=== PATIENT | male | born 1945 | race Caucasian/White ===

== ENCOUNTER → 2017-03-16 | Outpatient (CLI) | payer MEDICARE ==
[2017-03-16 11:22] LABS: ALT 24 U/L (21-72); AST 22 U/L (17-59); Alkaline Phosphatase 73 U/L (38-126); Anion Gap 12 mmol/L; Blood Urea Nitrogen 18 mg/dL (9-20); Calcium 9.6 mg/dL (8.4-10.2); Carbon Dioxide 24 mmol/L (22-30); Chloride 101 mmol/L (98-107); Glucose 93 mg/dL (74-99); Non-African American GFR(MDRD) >60 (>60 ml/min/1.73 sqM); Potassium 4.9 mmol/L (3.5-5.1); Sodium 137 mmol/L (137-145); Total Bilirubin 0.6 mg/dL (0.2-1.3); Total Protein 7.8 g/dL (6.3-8.2)
== END | disposition home or self-care (01) ==
LOC: LABWHC1 10:47
PROVIDERS: ATTEND Physical Medicine & Rehabilitation
DX: M51.17 Intervertebral disc disorders with radiculopathy, lumbosacral region (principal); M47.817 Spondylosis without myelopathy or radiculopathy, lumbosacral region
CPT/HCPCS: 36415; 80053

== ENCOUNTER → 2017-04-06 | Outpatient (CLI) | payer MEDICARE ==
[2017-04-06 12:06] LABS: Appearance,Urine Clear (Clear); Bilirubin,Urine Negative (Negative); Glucose,Urine (UA) Negative (Negative); Ketones,Urine Negative (Negative); Leukocyte Esterase,Urine Negative (Negative); Nitrite,Urine Negative (Negative); Protein,Urine Negative (Negative); Specific Gravity,Urine 1.006 (1.001-1.035); UA Billing (MACRO vs. MICRO) CHEM; Urobilinogen,Urine <2.0 mg/dL (<2.0)
[2017-04-06 12:07] LABS: INR 1.1 (<1.1); Partial Thromboplastin Time 26.8 sec (22.0-30.0); Prothrombin Time 11.1 sec (9.0-12.0)
[2017-04-06 12:10] LABS: Anion Gap 11 mmol/L; Blood Urea Nitrogen 14 mg/dL (9-20); Calcium 9.7 mg/dL (8.4-10.2); Carbon Dioxide 24 mmol/L (22-30); Chloride 98 mmol/L (98-107); Glucose 100 mg/dL (74-99); Non-African American GFR(MDRD) >60 (>60 ml/min/1.73 sqM); Potassium 4.7 mmol/L (3.5-5.1); Sodium 133 mmol/L (137-145)
--- NOTE | 2017-04-06 12:19 | XR ---
EXAMINATION TYPE: XR chest 2V DATE OF EXAM: 04/06/2017 12:08 PM COMPARISON: NONE HISTORY: Shortness of breath TECHNIQUE: Frontal and lateral views of the chest are obtained. FINDINGS: Scattered senescent parenchymal changes noted. Hyperinflation compatible with COPD. No evidence for infiltrate. No evidence for atelectasis. Heart size is stable. Mediastinal structures are stable and grossly unremarkable. No evidence for hilar prominence. Degenerative changes dorsal spine. Sclerosis or ossification adjacent to the left coracoid. IMPRESSION: 1. No evidence for acute pulmonary disease.
[2017-04-06 12:24] LABS: Basophils # (A) 0.1 k/uL (0-0.2); Basophils % (A) 1 %; CH 31.3; CHCM 33.7; Eosinophils % (A) 12 %; HCT 51.7 % (39.0-53.0); HDW 2.67; HGB 17.4 gm/dL (13.0-17.5); Large Platelets Flag Slight; Luc # (Auto) 0.16; Luc % (Auto) 2; Lymphocytes # (A) 1.8 k/uL (1.0-4.8); Lymphocytes % (A) 20 %; MCH 31.3 pg (25.0-35.0); MCHC 33.6 g/dL (31.0-37.0); MCV 93.2 fL (80.0-100.0); Mean Platelet Volume 10.4; Monocytes % (A) 11 %; Neutrophils # (A) 4.8 k/uL (1.3-7.7); Neutrophils % (A) 54 %; RBC 5.54 m/uL (4.30-5.90); RDW 14.9 % (11.5-15.5); WBC 8.8 k/uL (3.8-10.6); WBC (Perox) 8.64
[2017-04-06 13:31] LABS: Manual Review Performed
== END | disposition home or self-care (01) ==
LOC: LABPAT 11:24
PROVIDERS: ATTEND Orthopaedic Surgery Orthopaedic Surgery of the Spine
DX: Z01.818 Encounter for other preprocedural examination (principal); Z01.812 Encounter for preprocedural laboratory examination; Z79.01 Long term (current) use of anticoagulants
CPT/HCPCS: 36415; 71020; 80048; 81003; 85025; 85610; 85730; 86850; 86900; 86901; 87070

== ENCOUNTER → 2017-04-12 | Outpatient (CLI) | payer MEDICARE ==
[2017-04-12 11:16] LABS: Large Platelets Flag Marked
== END | disposition home or self-care (01) ==
LOC: LABPAT 10:41
PROVIDERS: ATTEND Orthopaedic Surgery Orthopaedic Surgery of the Spine
DX: Z01.812 Encounter for preprocedural laboratory examination (principal)
CPT/HCPCS: 85049

== ENCOUNTER 2017-04-14 05:42 | Day surgery (SDC) | payer MEDICARE ==
[2017-04-09 09:10] VITALS: BMI 34.9
[~2017-04-14 05:42] MED LIST: BACITRACIN 50,000 UNIT, POLYMYXIN B 500,000 UNIT in SODIUM CHLORIDE 0.9% IRRIGATIO 1,00... IRRIGATION ONE; ceFAZolin 2 GM in SODIUM CHLORIDE 0.9% 100 ML IVPB ONE
[2017-04-14] MEDS ORDERED: MIDAZOLAM 2 MG/2 ML VIAL IV PRN (05:57)
[2017-04-14] MEDS ORDERED: ONDANSETRON 4 MG/2 ML VIAL IVP ONE (05:57)
[2017-04-14] MEDS ORDERED: HYDROmorphone 1 MG/ML 1 ML SYRINGE IVP PRN ×3 (05:57→09:07)
[2017-04-14] MEDS ORDERED: LACTATED RINGERS 1,000 ML IV SCH (05:57)
[2017-04-14] MEDS ORDERED: DEXAMETHASONE SOD PHOSPHATE 10 MG/ML 1 ML VIAL IV ONE (05:57)
[2017-04-14] MEDS ORDERED: LIDOCAINE 1% 20 ML VIAL (10MG/ML) FOR IV START INTRADERMA ONE (06:34)
[2017-04-14] MEDS ORDERED: MIDAZOLAM 2 MG/2 ML VIAL ONE (07:27)
[2017-04-14] MEDS ORDERED: LIDOCAINE 1% INJ 10MG/ML (20 ML MDV) ONE (07:27)
[2017-04-14] MEDS ORDERED: ePHEDrine 50 MG/ML 1 ML AMP ONE (07:27)
[2017-04-14] MEDS ORDERED: PROPOFOL 10 MG/ML 20 ML VIAL IV ONE (07:27)
[2017-04-14] MEDS ORDERED: SUCCINYLCHOLINE CHLORIDE 100 MG/5 ML SYR IV ONE (07:27)
[2017-04-14] MEDS ORDERED: fentaNYL (PF) 50 MCG/ML 2 ML AMP ONE (07:27)
[2017-04-14] MEDS ORDERED: PHENYLEPHRINE-0.9% NACL SYG 1 MG/10 ML SYRINGE ONE (07:27)
[2017-04-14] MEDS ORDERED: LIDOCAINE 0.5%-EPI 1:200,000 50 ML VIAL SQ ONE ×2 (07:58→08:02)
[2017-04-14] MEDS ORDERED: BUPIVACAINE (PF) 0.25% 30 ML VIAL SQ ONE (07:58)
[2017-04-14] MEDS ORDERED: GELATIN SPONGE,ABSORB (LARGE) 1 EACH SPONGE TOPICAL ONE (07:58)
[2017-04-14] MEDS ORDERED: methylPREDNISolone ACETATE 80 MG/ML 1 ML VIAL INJ ONE ×2 (07:59)
--- NOTE | 2017-04-14 08:37 | FL ---
FLUOROSCOPY 5 seconds of fluoroscopy time were utilized during lumbar laminectomy. 1 images document the procedur e.
[2017-04-14] MEDS ORDERED: LACTATED RINGERS 1,000 ML IV ONE (08:54)
[2017-04-14] MEDS ORDERED: BENZOCAINE/MENTHOL LOZENG 1 EACH LOZENGE MUCOUS MEM PRN (09:07)
[2017-04-14] MEDS ORDERED: IBUPROFEN 600 MG TAB PO PRN (09:07)
[2017-04-14] MEDS ORDERED: DIAZEPAM 5 MG TAB PO PRN (09:07)
[2017-04-14] MEDS ORDERED: ONDANSETRON 4 MG/2 ML VIAL IVP PRN (09:07)
[2017-04-14] MEDS ORDERED: KETOROLAC 30 MG/ML 1 ML VIAL IVP PRN (09:07)
[2017-04-14] MEDS ORDERED: HYDROcodone/APAP 5-325MG 1 EACH TAB PO PRN ×2 (09:07)
[2017-04-14] MEDS ORDERED: NICOTINE 21MG/24HR PATCH TRANSDERM PRN (09:09)
[2017-04-14] MEDS ORDERED: ACETAMINOPHEN TAB 500 MG TAB PO PRN (09:09)
[2017-04-14] MEDS ORDERED: HYDROcodone/APAP 10-325MG 1 EACH TAB PO PRN (09:09)
[2017-04-14] MEDS ORDERED: SODIUM CHLORIDE 0.9% 1,000 ML IV SCH (09:15)
--- NOTE | 2017-04-14 09:16 | P.OP ---
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 Brito Electro Mechanic: Phil MORENO Anesthesia: General anesthesia Estimated blood loss: Approximately 50 mL Complications: None apparent Components implanted: None Specimen: Proximal of laminectomy with epidural mass likely facet cyst sent to pathology Disposition: To recovery room in good stable condition. OPERATIVE INDICATIONS The patient has been having issues in their lower back and lower extremities. The patient was found to have evidence of a epidural mass which was likely facet cyst at L4 5 with evidence of disc degeneration possible disc herniation. The symptoms correlated well with his imaging findings with his back and right lower extremity pain and radiculopathy. The patient has been through conservative treatment. He is not having any prolonged benefit despite aggressive conservative treatment and was having worsening of his symptoms. We discussed various treatment options including surgery, and the patient wishes to proceed with surgery We discussed the risk, patient's alternatives and benefits of surgery including but not limited to, risk of bleeding risk of infection, risk of need for further surgery, risk of decreased, loss of motion, loss of function, nerve damage, paralysis, heart attack, blindness and . OPERATIVE SUMMARY After discussing all the risks, patient alternatives and benefits at length, the patient elected to proceed with surgical intervention, signed informed consent, and presented for their procedure. The patient was seen and examined in the preoperative holding area and the surgical site was marked. The patient was given antibiotics and brought to the operating room. The patient was sedated and intubated by anesthesia in standard fashion. The patient was positioned on to the operating room table in a prone position on the appropriate frame which was well-padded and well molded. We were careful to pad any bony prominences and pressure points. We were careful to maintain the patient's cervical spine and good neutral alignment and position throughout. The patient was prepped and draped in a normal standard fashion. An appropriate timeout and keystone protocol performed. We were able to proceed with the surgery. Fluoroscopy was utilized to establish the appropriate level at L4 5. The local wound area was infiltrated with local anesthetic. An incision was made at the midline longitudinally over the appropriate levels at L4 5. Dissection was taken down subcutaneously to the level of the fascia which was split midline. Dissection was taken over the lamina. Intraoperative fluoroscopy was taken which showed a marker at the appropriate level at L4 5. With the appropriate level positively confirmed, we were able to proceed with laminectomy. The wound was copiously irrigated and suctioned dry as had been done periodically throughout the case. I performed a laminectomy with a combination of curettes and a high-speed bur and Kerrison rongeurs. A small medial facetectomy was performed again further access. A partial foraminotomy was also performed. There was a fibrous capsular type of mass at the epidural space extending from the facet which was believed to be a facet cyst. Portions of the capsule were adherent to the dura and traversing nerve root. This was causing significant compression at the dura and And traversing nerve root. I was able to remove the mass and remove multiple portions from the dura itself to get good decompression at the area. The tissue removed was sent for pathology. There was also evidence of extruded material which appeared to be disc at L4 5. I was able to remove these portions of disc for further decompression. I was able to expose the traversing nerve root and the dura quite well with the decompression and removal of these tissues. The nerve was freely mobile. I was able to mobilize the traversing nerve root and gain access to the disc space. Note was made of obvious compression from the disc. Protecting the soft tissue structures, I was able to perform discectomy and remove any extruded disc fragments and any loose fragments from within the disc itself. There is some disc desiccation noted. There were no further extruded fragments noted. There is no evidence of dural tear or leak. Good hemostasis maintained. The wound was copiously irrigated and suctioned dry. Good decompression and discectomy was noted. We were able to proceed with closure. The fascia was closed for a watertight closure. The subcuticular tissue was closed with absorbable suture. The wound was cleaned and dried and dressed with the appropriate dressing. The drapes were broken down. The patient was gently rolled back onto their hospital bed being careful to maintain their cervical spine and good neutral alignment and position. They were woken up by anesthesia, extubated, and brought to the recovery room in good stable condition. The patient will be admitted to the hospital for observation and for appropriate postoperative care, medical management and monitoring. We will continue to follow them closely about the postoperative course.
[2017-04-14 13:48] VITALS: RESP 16; TEMP 97.2
[2017-04-14 13:51] VITALS: BP 107/58; PULSE 80
[2017-04-14] MEDS ORDERED: ceFAZolin 2 GM in SODIUM CHLORIDE 0.9% 100 ML IVPB SCH (15:00)
[2017-04-14] MEDS ORDERED: GABAPENTIN 400 MG CAP PO SCH (16:00)
[2017-04-15] MEDS ORDERED: HYDROCHLOROTHIAZIDE 12.5 MG CAP PO SCH (09:00)
[2017-04-15] MEDS ORDERED: LISINOPRIL 20 MG TAB PO SCH (09:00)
[2017-04-15] MEDS ORDERED: FINASTERIDE 5 MG TAB PO SCH (09:00)
[2017-04-15] MEDS ORDERED: METOPROLOL SUCCINATE (ER) 100 MG TAB.ER.24H PO SCH (09:00)
[2017-04-15] MEDS ORDERED: MAGNESIUM OXIDE 400 MG TAB PO SCH (09:00)
[2017-04-15] MEDS ORDERED: amLODIPine 5 MG TAB PO SCH (09:00)
[2017-04-15] MEDS ORDERED: VIT A,C & E-LUTEIN-MINERALS 1 EACH TAB PO SCH (12:00)
[2017-04-15] MEDS ORDERED: CYANOCOBALAMIN 500 MCG TAB PO SCH (12:00)
== END 2017-04-14 17:57 | disposition home or self-care (01) ==
LOC: OR 05:42 → 3SUR 09:19 → OR 17:57
PROVIDERS: ATTEND Orthopaedic Surgery Orthopaedic Surgery of the Spine
DX: M48.06 Spinal stenosis, lumbar region (principal); M48.8X6 Other specified spondylopathies, lumbar region; M51.16 Intervertebral disc disorders with radiculopathy, lumbar region; M47.26 Other spondylosis with radiculopathy, lumbar region; I10 Essential (primary) hypertension; F17.200 Nicotine dependence, unspecified, uncomplicated; E78.5 Hyperlipidemia, unspecified; H35.30 Unspecified macular degeneration; I73.9 Peripheral vascular disease, unspecified; Z79.82 Long term (current) use of aspirin; Z79.891 Long term (current) use of opiate analgesic; Z79.899 Other long term (current) drug therapy
CPT/HCPCS: 72020; 63047; J1040; J1100; J0690; J2405; J1170; 86850; 86900; 86901; 88304; 88311

== ENCOUNTER 2017-07-04 10:25 | Emergency (ER) | payer MEDICARE ==
--- NOTE | 2017-07-04 10:42 | ED ---
Dizziness HPI - General Chief Complaint: Dizziness Stated Complaint: dizzy Time Seen by Provider: 07/04/17 10:30 Source: patient, family, RN notes reviewed Mode of arrival: wheelchair Limitations: no limitations - History of Present Illness Initial Comments: This is a 72-year-old male who states she's feeling episodes of lightheadedness and dizziness. He states she's been waking up feeling cold last 2 days. He was noted have a temperature 100.4 upon arrival here today. He states he urinates frequently denies any cough or phlegm production. He is very hard of hearing. MD Complaint: dizziness, lightheadedness, other - Related Data Home Medications Medication Instructions Recorded Confirmed Cyanocobalamin (Vitamin B-12) 1,000 mcg PO DAILY 04/09/17 07/04/17 [Vitamin B-12] Finasteride [Proscar] 5 mg PO DAILY 04/09/17 07/04/17 Gabapentin [Neurontin] 400 mg PO TID 04/09/17 07/04/17 HYDROcodone/APAP 10-325MG [[place] 1 tab PO TID PRN 04/09/17 07/04/17 10-325] Hydrochlorothiazide [Hydrodiuril] 12.5 mg PO DAILY 04/09/17 07/04/17 Lisinopril 40 mg PO DAILY 04/09/17 07/04/17 Magnesium Oxide [Magox 400] 400 mg PO DAILY 04/09/17 07/04/17 Metoprolol Succinate [Toprol XL] 100 mg PO DAILY 04/09/17 07/04/17 Vit C/E/Zn/Coppr/Lutein/Zeaxan 1 cap PO DAILY 04/09/17 07/04/17 [Preservision Areds 2 Softgel] amLODIPine [Norvasc] 5 mg PO DAILY 04/09/17 07/04/17 Acetaminophen/Diphenhydramine 1 tab PO HS PRN 07/04/17 07/04/17 [Tylenol PM 500-25mg] DULoxetine HCL 40 mg PO DAILY 07/04/17 07/04/17 Docusate [Colace] 100 mg PO BID 07/04/17 07/04/17 [place]-3 Fatty Acids/Fish Oil [Fish 1 cap PO DAILY 07/04/17 07/04/17 Oil 1,000 mg Softgel] [place] 160 mg PO BID 07/04/17 07/04/17 Previous Rx's Medication Instructions Recorded Meclizine [Antivert] 25 mg PO TID #20 tab 07/04/17 Allergies Allergy/AdvReac Type Severity Reaction Status Date / Time No Known Allergies Allergy Verified 07/04/17 11:11 Review of Systems ROS Statement: Those systems with pertinent positive or pertinent negative responses have been documented in the HPI. ROS Other: All systems not noted in ROS Statement are negative. Past Medical History Past Medical History: Hypertension History of Any Multi-Drug Resistant Organisms: None Reported Past Surgical History: Back Surgery Past Psychological History: No Psychological Hx Reported Smoking Status: Current every day smoker Past Alcohol Use History: None Reported Past Drug Use History: None Reported General Exam - General Exam Comments Initial Comments: This is a well-developed well-nourished awake alert oriented 3 male Limitations: no limitations General appearance: alert, in no apparent distress Head exam: Present: atraumatic, normocephalic, normal inspection Eye exam: Present: normal appearance, PERRL, EOMI. Absent: scleral icterus, conjunctival injection, periorbital swelling ENT exam: Present: mucous membranes dry Neck exam: Present: normal inspection. Absent: tenderness, meningismus, lymphadenopathy Respiratory exam: Present: normal lung sounds bilaterally. Absent: respiratory distress, wheezes, rales, rhonchi, stridor Cardiovascular Exam: Present: regular rate, normal rhythm, normal heart sounds. Absent: systolic murmur, diastolic murmur, rubs, gallop, clicks GI/Abdominal exam: Present: soft, normal bowel sounds. Absent: distended, tenderness, guarding, rebound, rigid Extremities exam: Present: normal inspection, full ROM, normal capillary refill. Absent: tenderness, pedal edema, joint swelling, calf tenderness Back exam: Present: normal inspection Neurological exam: Present: alert, oriented X3, other (Critical nerves intact except for hard of hearing.) Psychiatric exam: Present: normal affect, normal mood Skin exam: Present: warm, dry, intact, normal color. Absent: rash Course Vital Signs 07/04/17 07/04/17 07/04/17 10:27 11:13 11:43 Temperature 100.4 F H Pulse Rate 90 84 80 Respiratory 20 16 18 Rate Blood Pressure 119/74 120/69 109/76 O2 Sat by Pulse 94 L 94 L 95 Oximetry EKG Findings - EKG Results: EKG: interpreted by ERMD, sinus rhythm (Sinus rhythm rate of 81. Interval 150 to QRS duration 106 daily since QTC of 42/466 possible left atrial enlargement nonspecific inferior changes.) Medical Decision Making - Medical Decision Making Patient is feeling well did discuss findings with him and his friend. The current presentation is consistent with a viral syndrome. He will be discharged he is instructed to increase his oral fluids - Lab Data Result diagrams: 07/04/17 10:50 07/04/17 10:50 Lab Results 07/04/17 07/04/17 07/04/17 Range/Units 10:50 10:50 10:50 WBC 10.2 (3.8-10.6) k/uL RBC 5.35 (4.30-5.90) m/uL Hgb 17.1 (13.0-17.5) gm/dL Hct 50.3 (39.0-53.0) % MCV 94.1 (80.0-100.0) fL MCH 32.0 (25.0-35.0) pg MCHC 34.0 (31.0-37.0) g/dL RDW 14.2 (11.5-15.5) % Plt Count (150-450) k/uL Neutrophils % 60 % Lymphocytes % 18 % Monocytes % 12 % Eosinophils % 6 % Basophils % 1 % Neutrophils # 6.1 (1.3-7.7) k/uL Lymphocytes # 1.9 (1.0-4.8) k/uL Monocytes # 1.2 H (0-1.0) k/uL Eosinophils # 0.6 (0-0.7) k/uL Basophils # 0.1 (0-0.2) k/uL Polychromasia Present Sodium 136 L (137-145) mmol/L Potassium 4.1 (3.5-5.1) mmol/L Chloride 94 L (98-107) mmol/L Carbon Dioxide 28 (22-30) mmol/L Anion Gap 14 mmol/L BUN 9 (9-20) mg/dL Creatinine 0.81 (0.66-1.25) mg/dL Est GFR (MDRD) Af Amer >60 (>60 ml/min/1.73 sqM) Est GFR (MDRD) Non-Af >60 (>60 ml/min/1.73 sqM) Glucose 115 H (74-99) mg/dL Calcium 9.6 (8.4-10.2) mg/dL Magnesium 1.7 (1.6-2.3) mg/dL Total Bilirubin 0.5 (0.2-1.3) mg/dL AST 24 (17-59) U/L ALT 33 (21-72) U/L Alkaline Phosphatase 78 (38-126) U/L Total Creatine Kinase (55-170) U/L CK-MB (CK-2) (0.0-2.4) ng/mL CK-MB (CK-2) Rel Index Troponin I (0.000-0.034) ng/mL Total Protein 7.2 (6.3-8.2) g/dL Albumin 4.3 (3.5-5.0) g/dL Urine Color Light Yellow Urine Appearance Clear (Clear) Urine pH 8.5 H (5.0-8.0) Ur Specific [place] 1.004 (1.001-1.035) Urine Protein Negative (Negative) Urine Glucose (UA) Negative (Negative) Urine Ketones Negative (Negative) Urine Blood Negative (Negative) Urine Nitrite Negative (Negative) Urine Bilirubin Negative (Negative) Urine Urobilinogen <2.0 (<2.0) mg/dL Ur Leukocyte Esterase Negative (Negative) 07/04/17 07/04/17 Range/Units 10:50 10:50 WBC (3.8-10.6) k/uL RBC (4.30-5.90) m/uL Hgb (13.0-17.5) gm/dL Hct (39.0-53.0) % MCV (80.0-100.0) fL MCH (25.0-35.0) pg MCHC (31.0-37.0) g/dL RDW (11.5-15.5) % Plt Count (150-450) k/uL Neutrophils % % Lymphocytes % % Monocytes % % Eosinophils % % Basophils % % Neutrophils # (1.3-7.7) k/uL Lymphocytes # (1.0-4.8) k/uL Monocytes # (0-1.0) k/uL Eosinophils # (0-0.7) k/uL Basophils # (0-0.2) k/uL Polychromasia Sodium (137-145) mmol/L Potassium (3.5-5.1) mmol/L Chloride (98-107) mmol/L Carbon Dioxide (22-30) mmol/L Anion Gap mmol/L BUN (9-20) mg/dL Creatinine (0.66-1.25) mg/dL Est GFR (MDRD) Af Amer (>60 ml/min/1.73 sqM) Est GFR (MDRD) Non-Af (>60 ml/min/1.73 sqM) Glucose (74-99) mg/dL Calcium (8.4-10.2) mg/dL Magnesium (1.6-2.3) mg/dL Total Bilirubin (0.2-1.3) mg/dL AST (17-59) U/L ALT (21-72) U/L Alkaline Phosphatase (38-126) U/L Total Creatine Kinase 98 (55-170) U/L CK-MB (CK-2) 3.1 H* (0.0-2.4) ng/mL CK-MB (CK-2) Rel Index 3.2 Troponin I <0.012 (0.000-0.034) ng/mL Total Protein (6.3-8.2) g/dL Albumin (3.5-5.0) g/dL Urine Color Urine Appearance (Clear) Urine pH (5.0-8.0) Ur Specific [place] (1.001-1.035) Urine Protein (Negative) Urine Glucose (UA) (Negative) Urine Ketones (Negative) Urine Blood (Negative) Urine Nitrite (Negative) Urine Bilirubin (Negative) Urine Urobilinogen (<2.0) mg/dL Ur Leukocyte Esterase (Negative) - Radiology Data Radiology results: report reviewed (Review the imaging shows no acute findings.) , image reviewed Disposition Clinical Impression: Viral syndrome, Febrile illness Disposition: HOME SELF-CARE Condition: Good Instructions: Viral Syndrome (ED) Prescriptions: Meclizine [Antivert] 25 mg PO TID #20 tab Referrals: Alexei Metz MD [Primary Care Provider] - 1-2 days
[2017-07-04 11:05] LABS: Basophils # (A) 0.1 k/uL (0-0.2); Basophils % (A) 1 %; CH 31.5; CHCM 33.6; Eosinophils # (A) 0.6 k/uL (0-0.7); Eosinophils % (A) 6 %; HCT 50.3 % (39.0-53.0); HGB 17.1 gm/dL (13.0-17.5); Large Platelets Flag Marked; Luc # (Auto) 0.39; Luc % (Auto) 4; Lymphocytes # (A) 1.9 k/uL (1.0-4.8); Lymphocytes % (A) 18 %; MCV 94.1 fL (80.0-100.0); Mean Platelet Volume 14.8; Monocytes # (A) 1.2 k/uL (0-1.0); Monocytes % (A) 12 %; Neutrophils # (A) 6.1 k/uL (1.3-7.7); Neutrophils % (A) 60 %; RBC 5.35 m/uL (4.30-5.90); RDW 14.2 % (11.5-15.5); WBC 10.2 k/uL (3.8-10.6); WBC (Perox) 12.76
[2017-07-04 11:17] LABS: ALT 33 U/L (21-72); AST 24 U/L (17-59); Alkaline Phosphatase 78 U/L (38-126); Anion Gap 14 mmol/L; Blood Urea Nitrogen 9 mg/dL (9-20); Calcium 9.6 mg/dL (8.4-10.2); Carbon Dioxide 28 mmol/L (22-30); Chloride 94 mmol/L (98-107); Glucose 115 mg/dL (74-99); Magnesium 1.7 mg/dL (1.6-2.3); Non-African American GFR(MDRD) >60 (>60 ml/min/1.73 sqM); Potassium 4.1 mmol/L (3.5-5.1); Sodium 136 mmol/L (137-145); Total Bilirubin 0.5 mg/dL (0.2-1.3); Total Protein 7.2 g/dL (6.3-8.2)
[2017-07-04 11:18] LABS: Polychromasia Present
[2017-07-04 11:28] LABS: Appearance,Urine Clear (Clear); Bilirubin,Urine Negative (Negative); Glucose,Urine (UA) Negative (Negative); Ketones,Urine Negative (Negative); Leukocyte Esterase,Urine Negative (Negative); Nitrite,Urine Negative (Negative); PH, Urine 8.5 (5.0-8.0); Protein,Urine Negative (Negative); Specific Gravity,Urine 1.004 (1.001-1.035); UA Billing (MACRO vs. MICRO) CHEM; Urobilinogen,Urine <2.0 mg/dL (<2.0)
--- NOTE | 2017-07-04 11:44 | XR ---
EXAMINATION TYPE: XR chest 2V DATE OF EXAM: 07/04/2017 COMPARISON: 04/06/2017 HISTORY: 72-year-old male, lightheaded TECHNIQUE: AP and lateral views FINDINGS: The heart is upper limits of normal in size. Large appearance to the central pulmonary arteries. Mild diffuse interstitial prominence of the chronic appearance. There is hyperinflation with flattening o f the hemidiaphragms. Strandy atelectasis at the right base. No consolidation or pleural effusion. IMPRESSION: COPD with chronic appearing changes. Suspect underlying pulmonary arterial hypertension. No acute pro cess seen.
[2017-07-04 11:54] LABS: Creatine Kinase MB 3.1 ng/mL (0.0-2.4)
[2017-07-04 12:09] VITALS: RESP 18
--- NOTE | 2017-07-04 12:31 | CT ---
EXAMINATION TYPE: CT brain wo con DATE OF EXAM: 07/04/2017 COMPARISON: NONE HISTORY: Dizziness CT DLP: 1047.10 mGycm Automated exposure control for dose reduction was used. FINDINGS: There is no acute hemorrhage or major vessel territorial infarct. There is moderate cortical atrophy. There is no mass, mass effect, or midline shift. There is a hypodense area in the right parietal lob e which could be related to previous infarct. Syndrome at [place]. There is minimal opacification left maxillary sinus. Mastoid air cells are well aerated. Calvarium is unremarkable. IMPRESSION: NO PRIOR STUDIES ARE AVAILABLE FOR COMPARISON. THERE IS HYPODENSE AREA IN THE RIGHT PARIETAL LOBE WHI CH COULD BE RELATED TO PRIOR INSULT. CORRELATION WITH PATIENT HISTORY IS RECOMMENDED. THERE IS GLOBAL CORTICAL ATROPHY WHICH IS MORE PROGRESSED THAN WHAT WOULD BE EXPECTED FOR THE PATIENT 'S AGE.
[2017-07-04 13:00] VITALS: BP 101/55; PULSE 74; TEMP 98.2
== END 2017-07-04 12:59 | disposition home or self-care (01) ==
LOC: EC 10:25
DX: B34.9 Viral infection, unspecified (principal); R50.9 Fever, unspecified; I10 Essential (primary) hypertension; F17.200 Nicotine dependence, unspecified, uncomplicated; Z79.899 Other long term (current) drug therapy
CPT/HCPCS: 36415; 70450; 71020; 80053; 81003; 82550; 82553; 83735; 84484; 85025; 93005; 99284

== ENCOUNTER → 2017-08-25 | Outpatient (CLI) | payer MEDICARE ==
[2017-08-25 15:43] LABS: Blood Urea Nitrogen 14 mg/dL (9-20); Non-African American GFR(MDRD) >60 (>60 ml/min/1.73 sqM)
--- NOTE | 2017-08-26 15:59 | CT ---
EXAMINATION TYPE: CT angio neck DATE OF EXAM: 08/26/2017 HISTORY: Patient poor historian. Poor bloodflow. Patient has history of prior bilateral carotid end art ectomy. COMPARISON: NONE CT DLP: 971.4 mGycm. Automated Exposure Control for Dose Reduction was Utilized. TECHNIQUE: CTA scan of the neck is performed with IV Contrast, patient injected with 60 mL of Omnipa que 350, axial images are obtained, coronal and sagittal reformatted images are reviewed. Three-D rec onstructed images are created on an independent workstation and reviewed. FINDINGS: Carotid/Vascular Structures: There is high-grade stenosis of at least 70-80% ostial stenosis of the b rachiocephalic artery secondary to noncalcified plaquing spanning a distance of 4.5 cm. This is best demonstrated on series 9 (coronal images) image 34. At the distal aspect of the stenosis there is hig h-grade near complete occlusion (at least 90% secondary to both soft and hard plaque measuring 1.4 cm in length with only diminutive flow seen eccentric lead through the subclavian artery. High-grade st enosis extends along the right subclavian artery for at least 3.8 cm with asymmetric flow seen of the right axillary artery in comparison to the left. Although there is ostial narrowing at the origin of the vertebral artery the vertebral artery is patent on the right and dominant in comparison to the l eft. Basilar artery and its visualized portions is also patent. Circumferential intimal thickening and noncalcific plaquing is seen of the right common carotid arter y resulting in approximately 50% stenosis along its course. At the carotid bulb there are endarterect brenda changes with surgical clips and diminutive flow through the endarterectomy. Difficult to actually measure the grade of stenosis, however in comparison to the left common carotid artery this is appro ximately 80% stenosis. There is complete occlusion of the vertical and petrous portions of the right carotid artery as well as of the cavernous portions and supraclinoid portions with reconstitution in the right distal supraclinoid portion and M1 portion. Although the examination is not optimized for evaluation of intracranial structures incidental note i s made of a cavum septum pellucidum. Within the intracranial visualized vasculature there is no evide nce of focal stenosis. Within the visualized lungs there are paraseptal bullous emphysematous changes with the largest bulla measuring 8.5 cm. Multilevel degenerative changes of the thoracic spine are also noted. No compressi on deformity. Findings were discussed with the ordering physician Dr. Lynch at 1553 on 08/26/2017. IMPRESSION: 1. 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 2. High-grade stenosis of at least 70-80% at the ostia of the brachiocephalic artery secondary to non calcified atheromatous plaque spanning a distance of 4.5 cm. 3. High-grade stenosis and near complete occlusion secondary to both calcific and noncalcific atherom atous change within the brachiocephalic artery just distal to the above-mentioned 78% stenosis spanni ng a distance of 1.4 cm extending into the subclavian artery. Asymmetric flow is seen within the righ t and left subclavian arteries. 4. Ostial narrowing of the vertebral artery, difficult to measure although there is patency distal to this. 5. Circumferential intimal thickening and noncalcified plaque along the right common carotid artery o f approximately 50% throughout the endarterectomy proximal to the area of total occlusion. 6. Paraseptal bullous emphysematous changes of the visualized lung apices.
== END | disposition home or self-care (01) ==
LOC: RADCTMAIN 15:12
PROVIDERS: ATTEND Psychiatry & Neurology Neurology
DX: I65.21 Occlusion and stenosis of right carotid artery (principal); I77.1 Stricture of artery; I70.203 Unspecified atherosclerosis of native arteries of extremities, bilateral legs; I74.2 Embolism and thrombosis of arteries of the upper extremities; I65.09 Occlusion and stenosis of unspecified vertebral artery; Z91.030 Bee allergy status
CPT/HCPCS: 36415; 70498; 82565; 84520

== ENCOUNTER 2017-08-26 16:44 | Emergency (ER) | payer MEDICARE ==
--- NOTE | 2017-08-26 17:05 | ED ---
General Adult HPI - General Chief complaint: Neuro Symptoms/Deficit Stated complaint: cannot see straight, sent by Time Seen by Provider: 08/26/17 16:59 Source: patient, family, RN notes reviewed, old records reviewed Mode of arrival: wheelchair Limitations: no limitations - History of Present Illness Initial comments: This is a 72-year-old male to the ER for evaluation of the. History patient presents for evaluation regarding abnormal outpatient lab tests. Patient's history of severe arterial disease, patient presents today as he had outpatient CTA of his neck which showed significant disease. Patient states he has been having recent dizziness but denies any specific neurological changes. At this time patient is asymptomatic - Related Data Home Medications Medication Instructions Recorded Confirmed Finasteride [Proscar] 5 mg PO DAILY 04/09/17 08/26/17 Hydrochlorothiazide [Hydrodiuril] 12.5 mg PO DAILY 04/09/17 08/26/17 Lisinopril 40 mg PO DAILY 04/09/17 08/26/17 Metoprolol Succinate [Toprol XL] 100 mg PO DAILY 04/09/17 08/26/17 Vit C/E/Zn/Coppr/Lutein/Zeaxan 1 cap PO BID 04/09/17 08/26/17 [Preservision Areds 2 Softgel] amLODIPine [Norvasc] 5 mg PO DAILY 04/09/17 08/26/17 DULoxetine HCL 40 mg PO DAILY 07/04/17 08/26/17 Saw [place] 160 mg PO BID 07/04/17 08/26/17 Gabapentin [Neurontin] 300 mg PO BID 08/26/17 08/26/17 Allergies Allergy/AdvReac Type Severity Reaction Status Date / Time venom-honey bee Allergy Anaphylaxis Verified 08/26/17 17:08 Review of Systems ROS Statement: Those systems with pertinent positive or pertinent negative responses have been documented in the HPI. ROS Other: All systems not noted in ROS Statement are negative. Past Medical History Past Medical History: CVA/TIA, Hypertension History of Any Multi-Drug Resistant Organisms: None Reported Past Surgical History: Back Surgery Additional Past Surgical History / Comment(s): carotid endardectomy Past Psychological History: No Psychological Hx Reported Smoking Status: Current every day smoker Past Alcohol Use History: None Reported Past Drug Use History: None Reported General Exam - General Exam Comments Initial Comments: NIH 0 Limitations: no limitations General appearance: alert, in no apparent distress Head exam: Present: atraumatic, normocephalic, normal inspection Eye exam: Present: normal appearance, PERRL, EOMI. Absent: scleral icterus, conjunctival injection, periorbital swelling ENT exam: Present: normal exam, mucous membranes moist Neck exam: Present: normal inspection. Absent: tenderness, meningismus, lymphadenopathy Respiratory exam: Present: normal lung sounds bilaterally. Absent: respiratory distress, wheezes, rales, rhonchi, stridor Cardiovascular Exam: Present: regular rate, normal rhythm, normal heart sounds. Absent: systolic murmur, diastolic murmur, rubs, gallop, clicks GI/Abdominal exam: Present: soft, normal bowel sounds. Absent: distended, tenderness, guarding, rebound, rigid Extremities exam: Present: normal inspection, full ROM, normal capillary refill. Absent: tenderness, pedal edema, joint swelling, calf tenderness Back exam: Present: normal inspection Neurological exam: Present: alert, oriented X3, CN II-XII intact Psychiatric exam: Present: normal affect, normal mood Skin exam: Present: warm, dry, intact, normal color. Absent: rash Course Vital Signs 08/26/17 08/26/17 08/26/17 16:57 18:00 19:39 Temperature 97.8 F Pulse Rate 94 87 78 Respiratory 20 16 16 Rate Blood Pressure 98/71 O2 Sat by Pulse 93 L 95 96 Oximetry 08/26/17 08/26/17 20:15 21:09 Temperature Pulse Rate 80 84 Respiratory 16 16 Rate Blood Pressure 94/66 104/64 O2 Sat by Pulse 98 97 Oximetry - Reevaluation(s) Reevaluation #1: 08/26/17 20:53 , Made to Nathan Dotsonwell patient primary vascular surgeon who has done surgery on this patient, unable to get a hold of, then when we were able to get a hold of him he did refuse to speak about patient Reevaluation #2: 08/26/17 20:54 Spoke with Stephanie Wilks who is refusing admission of patient Reevaluation #3: 08/26/17 20:[address] Lynch who states patient should be evaluated regarding cardiovascular disease, vascular surgery, Dr. Lynch order CTA Reevaluation #4: 08/26/17 21:26 ptient will transfer to [facility] [place][note 3] EKG Findings - EKG Comments: EKG Findings:: EKG shows normal sinus a rate of 80, PA 136, QRS 142, QTC 467 Medical Decision Making - Medical Decision Making 72 male to the ER for reevaluation. Patient presents today for evaluation regarding TIA type of symptoms. Patient currently asystematic neurologically, he does have a CTA of his brain showing significant arterial disease the blood flow to his brain. Patient is to be transferred regarding vascular surgery and neurologic evaluation - Lab Data Result diagrams: 08/26/17 17:30 08/26/17 17:30 Lab Results 08/26/17 08/26/17 08/26/17 Range/Units 17:30 17:30 17:30 WBC 9.3 (3.8-10.6) k/uL RBC 5.17 (4.30-5.90) m/uL Hgb 16.3 (13.0-17.5) gm/dL Hct 50.3 (39.0-53.0) % MCV 97.2 (80.0-100.0) fL MCH 31.5 (25.0-35.0) pg MCHC 32.4 (31.0-37.0) g/dL RDW 14.2 (11.5-15.5) % Plt Count (150-450) k/uL Neutrophils % 56 % Lymphocytes % 20 % Monocytes % 9 % Eosinophils % 11 % Basophils % 1 % Neutrophils # 5.2 (1.3-7.7) k/uL Lymphocytes # 1.9 (1.0-4.8) k/uL Monocytes # 0.8 (0-1.0) k/uL Eosinophils # 1.0 H (0-0.7) k/uL Basophils # 0.1 (0-0.2) k/uL PT (9.0-12.0) sec INR (<1.2) APTT (22.0-30.0) sec Sodium 133 L (137-145) mmol/L Potassium 4.4 (3.5-5.1) mmol/L Chloride 98 (98-107) mmol/L Carbon Dioxide 25 (22-30) mmol/L Anion Gap 10 mmol/L BUN 15 (9-20) mg/dL Creatinine 1.00 (0.66-1.25) mg/dL Est GFR (MDRD) Af Amer >60 (>60 ml/min/1.73 sqM) Est GFR (MDRD) Non-Af >60 (>60 ml/min/1.73 sqM) Glucose 101 H (74-99) mg/dL Calcium 9.4 (8.4-10.2) mg/dL Phosphorus 4.5 (2.5-4.5) mg/dL Magnesium 1.9 (1.6-2.3) mg/dL Total Bilirubin 0.3 (0.2-1.3) mg/dL AST 18 (17-59) U/L ALT 26 (21-72) U/L Alkaline Phosphatase 64 (38-126) U/L Total Creatine Kinase 51 L (55-170) U/L CK-MB (CK-2) 1.6 (0.0-2.4) ng/mL CK-MB (CK-2) Rel Index 3.1 Troponin I <0.012 (0.000-0.034) ng/mL Total Protein 6.5 (6.3-8.2) g/dL Albumin 3.8 (3.5-5.0) g/dL 08/26/17 Range/Units 17:30 WBC (3.8-10.6) k/uL RBC (4.30-5.90) m/uL Hgb (13.0-17.5) gm/dL Hct (39.0-53.0) % MCV (80.0-100.0) fL MCH (25.0-35.0) pg MCHC (31.0-37.0) g/dL RDW (11.5-15.5) % Plt Count (150-450) k/uL Neutrophils % % Lymphocytes % % Monocytes % % Eosinophils % % Basophils % % Neutrophils # (1.3-7.7) k/uL Lymphocytes # (1.0-4.8) k/uL Monocytes # (0-1.0) k/uL Eosinophils # (0-0.7) k/uL Basophils # (0-0.2) k/uL PT 11.2 (9.0-12.0) sec INR 1.1 (<1.2) APTT 24.2 (22.0-30.0) sec Sodium (137-145) mmol/L Potassium (3.5-5.1) mmol/L Chloride (98-107) mmol/L Carbon Dioxide (22-30) mmol/L Anion Gap mmol/L BUN (9-20) mg/dL Creatinine (0.66-1.25) mg/dL Est GFR (MDRD) Af Amer (>60 ml/min/1.73 sqM) Est GFR (MDRD) Non-Af (>60 ml/min/1.73 sqM) Glucose (74-99) mg/dL Calcium (8.4-10.2) mg/dL Phosphorus (2.5-4.5) mg/dL Magnesium (1.6-2.3) mg/dL Total Bilirubin (0.2-1.3) mg/dL AST (17-59) U/L ALT (21-72) U/L Alkaline Phosphatase (38-126) U/L Total Creatine Kinase (55-170) U/L CK-MB (CK-2) (0.0-2.4) ng/mL CK-MB (CK-2) Rel Index Troponin I (0.000-0.034) ng/mL Total Protein (6.3-8.2) g/dL Albumin (3.5-5.0) g/dL - Radiology Data Radiology results: report reviewed (CT brain does show significant arterial disease, 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 Specs Out of Hospital Transfer - Requested Specifics: Other Emergency Center ([facility]
[2017-08-26] MEDS ORDERED: SODIUM CHLORIDE 0.9% 1,000 ML IV STA (17:08)
[2017-08-26 17:45] LABS: INR 1.1 (<1.2); Partial Thromboplastin Time 24.2 sec (22.0-30.0); Prothrombin Time 11.2 sec (9.0-12.0)
[2017-08-26 17:47] LABS: ALT 26 U/L (21-72); AST 18 U/L (17-59); Alkaline Phosphatase 64 U/L (38-126); Anion Gap 10 mmol/L; Blood Urea Nitrogen 15 mg/dL (9-20); Calcium 9.4 mg/dL (8.4-10.2); Carbon Dioxide 25 mmol/L (22-30); Chloride 98 mmol/L (98-107); Glucose 101 mg/dL (74-99); Magnesium 1.9 mg/dL (1.6-2.3); Non-African American GFR(MDRD) >60 (>60 ml/min/1.73 sqM); Phosphorus 4.5 mg/dL (2.5-4.5); Potassium 4.4 mmol/L (3.5-5.1); Sodium 133 mmol/L (137-145); Total Bilirubin 0.3 mg/dL (0.2-1.3); Total Protein 6.5 g/dL (6.3-8.2)
[2017-08-26 17:57] LABS: Basophils # (A) 0.1 k/uL (0-0.2); Basophils % (A) 1 %; CH 31.6; CHCM 32.6; Eosinophils % (A) 11 %; HCT 50.3 % (39.0-53.0); HDW 2.25; HGB 16.3 gm/dL (13.0-17.5); Luc # (Auto) 0.23; Luc % (Auto) 3; Lymphocytes # (A) 1.9 k/uL (1.0-4.8); Lymphocytes % (A) 20 %; MCH 31.5 pg (25.0-35.0); MCHC 32.4 g/dL (31.0-37.0); MCV 97.2 fL (80.0-100.0); Mean Platelet Volume 9.6; Monocytes # (A) 0.8 k/uL (0-1.0); Monocytes % (A) 9 %; Neutrophils # (A) 5.2 k/uL (1.3-7.7); Neutrophils % (A) 56 %; RBC 5.17 m/uL (4.30-5.90); RDW 14.2 % (11.5-15.5); WBC 9.3 k/uL (3.8-10.6); WBC (Perox) 9.48
[2017-08-26 17:58] LABS: Creatine Kinase 51 U/L (55-170)
[2017-08-26 18:01] VITALS: RESP 16
[2017-08-26 18:11] LABS: Creatine Kinase MB 1.6 ng/mL (0.0-2.4); Troponin I <0.012 ng/mL (0.000-0.034)
[2017-08-26 22:13] VITALS: PULSE 85
[2017-08-26 23:01] VITALS: BP 97/70; TEMP 98
== END 2017-08-26 22:30 | disposition short-term general hospital (02) ==
LOC: EC 16:44
DX: G45.9 Transient cerebral ischemic attack, unspecified (principal); I73.9 Peripheral vascular disease, unspecified; I70.8 Atherosclerosis of other arteries; I10 Essential (primary) hypertension; F17.200 Nicotine dependence, unspecified, uncomplicated; Z79.899 Other long term (current) drug therapy; Z91.030 Bee allergy status; Z98.890 Other specified postprocedural states
CPT/HCPCS: 36415; 80053; 82550; 82553; 83735; 84100; 84484; 85025; 85610; 85730; 93005; 96360; 96361; 99285

== ENCOUNTER 2017-09-25 09:04 | Inpatient (IN) | payer MEDICARE ==
[2017-09-25] MEDS ORDERED: SODIUM CHLORIDE 0.9% 2,000 ML IV STA (09:51)
[2017-09-25] MEDS ORDERED: ONDANSETRON 4 MG/2 ML VIAL IVP STA (09:51)
--- NOTE | 2017-09-25 10:11 | XR ---
EXAMINATION TYPE: XR KUB , 2 VIEWS DATE OF EXAM ORDERED: 09/25/2017 HISTORY: pain. COMPARISON: None. FINDINGS: The lung bases are clear. Within the abdomen, the abdominal gas pattern is normal. There is no evidence of obstruction or free air. No unusual calcifications are identified. IMPRESSION: NO ACUTE INTRA-ABDOMINAL ABNORMALITY.
[2017-09-25 10:16] LABS: Basophils % (A) 0 %; CH 31.3; CHCM 33.4; Eosinophils # (A) 0.1 k/uL (0-0.7); Eosinophils % (A) 2 %; HCT 46.1 % (39.0-53.0); HDW 2.35; HGB 15.2 gm/dL (13.0-17.5); Luc # (Auto) 0.11; Luc % (Auto) 1; Lymphocytes % (A) 13 %; MCH 31.1 pg (25.0-35.0); MCHC 33.1 g/dL (31.0-37.0); MCV 94.1 fL (80.0-100.0); Mean Platelet Volume 9.5; Monocytes # (A) 1.3 k/uL (0-1.0); Monocytes % (A) 16 %; Neutrophils # (A) 5.6 k/uL (1.3-7.7); Neutrophils % (A) 68 %; RDW 13.4 % (11.5-15.5); WBC 8.1 k/uL (3.8-10.6); WBC (Perox) 9.96
--- NOTE | 2017-09-25 10:17 | ED ---
Nausea/Vomiting/Diarrhea HPI - General Chief complaint: Nausea/Vomiting/Diarrhea Stated complaint: Diarrhea Time Seen by Provider: 09/25/17 09:17 Source: patient, RN notes reviewed, old records reviewed Mode of arrival: ambulatory Limitations: no limitations - History of Present Illness Initial comments: Patient is a 72-year-old male with history of atherosclerotic disease presents emergency Department with uncontrollable diarrhea for approximately one week. He denies any recent antibiotic use. Here states that he was discharged from the hospital approximately 3 weeks ago. Patient reports that he has no abdominal pain. Denies any chest pain shortness of breath or headache. Patient states that he feels that is safe he is done with trying to care for himself anymore. Patient reports that yesterday he had episodes of diarrhea while laying in bed. He reports that he just pulled the covers over his head and laid in it. He called EMS this morning to have him transferred here. Patient states that the diarrhea has no blood or mucus. His chest brown watery stool. Patient denies any travel history. Denies any history of C. diff. patient denies any vomiting.Patient denies any recent fever, chills, shortness of breath, chest pain, back pain, abdominal pain, nausea vomiting, numbness or tingling, dysuria or hematuria, constipation headaches or visual changes, or any other current symptoms - Related Data Home Medications Medication Instructions Recorded Confirmed Finasteride [Proscar] 5 mg PO DAILY 04/09/17 09/25/17 Hydrochlorothiazide [Hydrodiuril] 12.5 mg PO DAILY 04/09/17 09/25/17 Lisinopril 40 mg PO DAILY 04/09/17 09/25/17 Metoprolol Succinate [Toprol XL] 100 mg PO DAILY 04/09/17 09/25/17 Vit C/E/Zn/Coppr/Lutein/Zeaxan 1 cap PO BID 04/09/17 09/25/17 [Preservision Areds 2 Softgel] amLODIPine [Norvasc] 5 mg PO DAILY 04/09/17 09/25/17 DULoxetine HCL 40 mg PO DAILY 07/04/17 09/25/17 Saw [place] 160 mg PO BID 07/04/17 09/25/17 Gabapentin [Neurontin] 300 mg PO BID 08/26/17 09/25/17 Allergies Allergy/AdvReac Type Severity Reaction Status Date / Time venom-honey bee Allergy Anaphylaxis Verified 09/25/17 11:12 Review of Systems ROS Statement: Those systems with pertinent positive or pertinent negative responses have been documented in the HPI. ROS Other: All systems not noted in ROS Statement are negative. Past Medical History Past Medical History: CVA/TIA, Hypertension History of Any Multi-Drug Resistant Organisms: None Reported Past Surgical History: Back Surgery Additional Past Surgical History / Comment(s): carotid endardectomy Past Psychological History: No Psychological Hx Reported Smoking Status: Current every day smoker Past Alcohol Use History: None Reported Past Drug Use History: None Reported General Exam - General Exam Comments Initial Comments: Patient is a 72-year-old male. Patient feels ill and frail. Limitations: no limitations General appearance: alert, in no apparent distress Head exam: Present: atraumatic, normocephalic, normal inspection Eye exam: Present: normal appearance, PERRL, EOMI. Absent: scleral icterus, conjunctival injection, periorbital swelling ENT exam: Present: normal exam, mucous membranes moist. Absent: normal oropharynx (Patient is poor dentition. Multiple dental caries noted.) Neck exam: Present: normal inspection. Absent: tenderness, meningismus, lymphadenopathy Respiratory exam: Present: normal lung sounds bilaterally. Absent: respiratory distress, wheezes, rales, rhonchi, stridor Cardiovascular Exam: Present: regular rate, normal rhythm, normal heart sounds. Absent: systolic murmur, diastolic murmur, rubs, gallop, clicks GI/Abdominal exam: Present: soft, normal bowel sounds, hyperactive bowel sounds. Absent: distended, tenderness, guarding, rebound, rigid Extremities exam: Present: normal inspection, full ROM, normal capillary refill , other (Dry skin noted over the lower extremities.). Absent: tenderness, pedal edema, joint swelling, calf tenderness Back exam: Present: normal inspection Neurological exam: Present: alert, oriented X3, CN II-XII intact Psychiatric exam: Present: normal affect, normal mood Skin exam: Present: warm, dry, intact, normal color. Absent: rash Course Vital Signs 09/25/17 09/25/17 09:19 10:12 Temperature 98.2 F Pulse Rate 99 87 Respiratory 18 18 Rate Blood Pressure 107/70 105/68 O2 Sat by Pulse 99 99 Oximetry Medical Decision Making - Medical Decision Making This is a 72-year-old male presents emergency Department chief complaint of watery diarrhea for the past week. He reports he is feels very fatigued and tired. Apparently patient laid in his diarrhea and bed. At this time patient was given IV fluids labwork obtained. He has a significantly low potassium of 2.3. He was given 40 mg of K-Dur and to units of potassium IV. Patient case assessment after, right. Edgar the patient for dehydration, and hypokalemia. Is also noted the patient's occult stool is positive. Hemoglobin is stable. I didn't patient complains of no significant abdominal pain, no tenderness on exam. Patient states Any headache, chest pain. When he is residing was resting comfortably in bed and sleeping. - Lab Data Result diagrams: 09/25/17 09:35 09/25/17 10:29 Lab Results 09/25/17 09/25/17 09/25/17 Range/Units 09:35 10:29 11:20 WBC 8.1 (3.8-10.6) k/uL RBC 4.90 (4.30-5.90) m/uL Hgb 15.2 (13.0-17.5) gm/dL Hct 46.1 (39.0-53.0) % MCV 94.1 (80.0-100.0) fL MCH 31.1 (25.0-35.0) pg MCHC 33.1 (31.0-37.0) g/dL RDW 13.4 (11.5-15.5) % Plt Count (150-450) k/uL Neutrophils % 68 % Lymphocytes % 13 % Monocytes % 16 % Eosinophils % 2 % Basophils % 0 % Neutrophils # 5.6 (1.3-7.7) k/uL Lymphocytes # 1.0 (1.0-4.8) k/uL Monocytes # 1.3 H (0-1.0) k/uL Eosinophils # 0.1 (0-0.7) k/uL Basophils # 0.0 (0-0.2) k/uL Polychromasia Present Sodium 132 L (137-145) mmol/L Potassium 2.4 L* (3.5-5.1) mmol/L Chloride 88 L (98-107) mmol/L Carbon Dioxide 39 H (22-30) mmol/L Anion Gap 5 mmol/L BUN 11 (9-20) mg/dL Creatinine 0.92 (0.66-1.25) mg/dL Est GFR (MDRD) Af Amer >60 (>60 ml/min/1.73 sqM) Est GFR (MDRD) Non-Af >60 (>60 ml/min/1.73 sqM) Glucose 103 H (74-99) mg/dL Calcium 8.3 L (8.4-10.2) mg/dL Total Bilirubin 0.4 (0.2-1.3) mg/dL AST 39 (17-59) U/L ALT 29 (21-72) U/L Alkaline Phosphatase 44 (38-126) U/L Total Protein 5.4 L (6.3-8.2) g/dL Albumin 3.0 L (3.5-5.0) g/dL Amylase <30 L (30-110) U/L Lipase 35 (23-300) U/L Stool Occult Blood Positive (Negative) - Radiology Data Radiology results: report reviewed KUB x-ray shows no acute intra-abdominal abnormality. Disposition Clinical Impression: Dehydration, Diarrhea, Blood in stool, Hypokalemia Disposition: ADMITTED IP TO THIS [facility] Condition: Stable Referrals: Alexei Metz MD [Primary Care Provider] - 1-2 days Time of Disposition: 11:40
[2017-09-25 10:25] LABS: Polychromasia Present
[2017-09-25 10:50] LABS: ALT 29 U/L (21-72); AST 39 U/L (17-59); Alkaline Phosphatase 44 U/L (38-126); Amylase <30 U/L (30-110); Blood Urea Nitrogen 11 mg/dL (9-20); Calcium 8.3 mg/dL (8.4-10.2); Chloride 88 mmol/L (98-107); Glucose 103 mg/dL (74-99); Non-African American GFR(MDRD) >60 (>60 ml/min/1.73 sqM); Sodium 132 mmol/L (137-145); Total Bilirubin 0.4 mg/dL (0.2-1.3); Total Protein 5.4 g/dL (6.3-8.2)
[2017-09-25 10:57] LABS: Anion Gap 5 mmol/L; Carbon Dioxide 39 mmol/L (22-30)
[2017-09-25 11:06] LABS: Potassium 2.4 mmol/L (3.5-5.1)
[2017-09-25] MEDS ORDERED: POTASSIUM CHLORIDE ER 20 MEQ TAB.ER PO STA (11:10)
[2017-09-25] MEDS ORDERED: NALOXONE 0.4 MG/ML 1 ML VIAL IV PRN (11:40)
[2017-09-25] MEDS ORDERED: MORPHINE SULFATE 10 MG/ML SYRINGE IV PRN (11:40)
[2017-09-25] MEDS ORDERED: LORazepam 2 MG/ML INJ IV PRN (11:40)
[2017-09-25] MEDS ORDERED: ACETAMINOPHEN TAB 325 MG TAB PO PRN (11:40)
[2017-09-25] MEDS ORDERED: ONDANSETRON 4 MG/2 ML VIAL IVP PRN (11:40)
[2017-09-25] MEDS ORDERED: POTASSIUM CHLORIDE 10 MEQ, LIDOCAINE 2% INJ 10 MG in SODIUM CHLORIDE 0.9% 100 ML IVPB SCH (12:00)
[2017-09-25] MEDS: POTASSIUM CHLORIDE 10 MEQ, LIDOCAINE 2% INJ 10 MG in SODIUM CHLORIDE 0.9% 100 ML IVPB SCH ×5 (12:11→23:27)
[2017-09-25] MEDS: SODIUM CHLORIDE 0.9% 1,000 ML IV SCH ×2 (12:11→20:31)
[2017-09-25 12:20] LABS: Appearance,Urine Clear (Clear); Bilirubin,Urine Negative (Negative); Glucose,Urine (UA) Negative (Negative); Ketones,Urine Negative (Negative); Leukocyte Esterase,Urine Negative (Negative); Nitrite,Urine Negative (Negative); PH, Urine 7.5 (5.0-8.0); Protein,Urine Trace (Negative); Specific Gravity,Urine 1.011 (1.001-1.035); UA Billing (MACRO vs. MICRO) CHEM
[2017-09-25 13:59] LABS: Appearance,Urine Clear (Clear); Bilirubin,Urine Negative (Negative); Glucose,Urine (UA) Negative (Negative); Ketones,Urine Negative (Negative); Leukocyte Esterase,Urine Negative (Negative); Nitrite,Urine Negative (Negative); PH, Urine 7.5 (5.0-8.0); Protein,Urine Trace (Negative); Specific Gravity,Urine 1.011 (1.001-1.035); UA Billing (MACRO vs. MICRO) CHEM
[2017-09-25] MEDS ORDERED: SODIUM CHLORIDE 0.9% 1,000 ML IV ONE (14:02)
--- NOTE | 2017-09-25 14:03 | P.HPIM ---
History of Present Illness H&P Date: 09/25/17 Chief Complaint: diarrhea this is a 72 years old male with past medical history of hypertension , recent stroke 3 months ago patient of Dr. Metz presents to ED with multiple episodes of diarrhea for the past 1 week. He was unable to come out of his bed and had fecal incontinence in his bed but laid in it due to increased weakness. Patient denies any previous episodeof diarrhea. He has been taking NyQuil for the past week and denies any new medication or antibiotic use in the past month. Patient denies any nausea, vomiting, blood in her stool. Denies any history of C. diff or previous episodes of diarrhea. He is currently dealing with worsening dizziness with decreased hearing since a stroke. He follows a neurologist outpatient who has been investigating his dizziness but does not think it is related to stroke. In the emergency, patient was found to have a potassium of 2.4, sodium 132, chloride 88, bicarb 39 suggestive of metabolic alkalosis secondary to dehydration. Patient received a liter bolus of normal saline along with 40 mEq of potassium orally with 60 mEq of IV potassium. Normal saline was started at 100 mL/h and patient was admitted. Review of Systems Constitutional: Denies chills, Denies fever, endorses lethargy, endorses malaise, endorsespoor appetite, Denies weakness, endorsesweight loss Eyes: denies decreased vision, denies diplopia, denies discharge, denies pain Ears: deny: decreased hearing Ears, nose, mouth and throat: Denies dental pain, Denies headache, Denies nasal discharge, Denies nose pain Cardiovascular: Denies chest pain, Denies decreased exercise tolerance, Denies edema, Denies high blood pressure, Denies irregular heart beat, Denies palpitations, Denies paroxysmal nocturnal dyspnea, Denies rapid heart beat, Denies shortness of breath Respiratory: Denies congestion, Denies cough, Denies cough with sputum, Denies dyspnea, Denies home oxygen, Denies wheezing Gastrointestinal: mild abdominal pain, endorses diarrhea, Denies coffee ground emesis, Denies early satiety, Denies excessive gas, Denies heartburn, Denies hematemesis, Denies hematochezia, Denies loss of appetite, Denies nausea, Denies vomiting Genitourinary: Denies dysuria, Denies flank pain, Denies kidney stones, Denies menorrhagia, Denies urgency, Denies urinary frequency Musculoskeletal: Denies gait dysfunction, Denies limitation of motion, Denies morning stiffness, Denies muscle cramps Integumentary: Denies rash, Denies wounds, Denies brittle nails, Denies change in hair/nails, Denies darkening of skin Neurological: endorsesbalance difficulties, Denies change in speech, Denies double vision, endorses gait dysfunction, Denies loss of vision, Denies motor disturbance, Denies numbness, Denies paralysis, Denies paresthesias, Denies seizures,endorses dizziness Psychiatric: Denies anxiety, Denies depression Endocrine: Denies excessive sweating, Denies excessive thirst, Denies high blood sugars, Denies palpitations Hematologic/Lymphatic: Denies easy bruising, Denies lymphadenopathy Past Medical History Past Medical History: CVA/TIA, Hypertension History of Any Multi-Drug Resistant Organisms: None Reported Past Surgical History: Back Surgery Additional Past Surgical History / Comment(s): carotid endardectomy Past Psychological History: No Psychological Hx Reported Smoking Status: Current every day smoker Past Alcohol Use History: None Reported Past Drug Use History: None Reported - Past Family History Father Additional Family Medical History / Comment(s): father at the age of 70, sudden unclear etiology Mother Additional Family Medical History / Comment(s): mother of oral age. Patient has no siblings Medications and Allergies Home Medications Medication Instructions Recorded Confirmed Type Finasteride [Proscar] 5 mg PO DAILY 04/09/17 09/25/17 History Hydrochlorothiazide [Hydrodiuril] 12.5 mg PO DAILY 04/09/17 09/25/17 History Lisinopril 40 mg PO DAILY 04/09/17 09/25/17 History Metoprolol Succinate [Toprol XL] 100 mg PO DAILY 04/09/17 09/25/17 History Vit C/E/Zn/Coppr/Lutein/Zeaxan 1 cap PO BID 04/09/17 09/25/17 History [Preservision Areds 2 Softgel] amLODIPine [Norvasc] 5 mg PO DAILY 04/09/17 09/25/17 History DULoxetine HCL 40 mg PO DAILY 07/04/17 09/25/17 History Saw [place] 160 mg PO BID 08/13/17 11/04/17 History Gabapentin [Neurontin] 300 mg PO BID 08/26/17 09/25/17 History Allergies Allergy/AdvReac Type Severity Reaction Status Date / Time venom-honey bee Allergy Anaphylaxis Verified 09/25/17 11:12 Physical Exam Vitals: Vital Signs Temp Pulse Pulse Resp BP BP BP 09/25/17 13:10 98.2 F 94 16 75/57 85/61 09/25/17 12:17 98 F 87 16 107/82 09/25/17 10:12 87 18 105/68 09/25/17 09:19 98.2 F 99 18 107/70 Pulse Ox 09/25/17 13:10 93 L 09/25/17 12:17 99 09/25/17 10:12 99 09/25/17 09:19 99 Intake and Output 09/24/17 09/25/17 09/25/17 22:59 06:59 14:59 Other: # Voids 1 Weight 104.326 kg Patient Weight 09/26/17 05:59 Weight 104.326 kg - Constitutional General appearance: cooperative, no acute distress, obese, hard of hearing - EENT Eyes: anicteric sclerae, PERRLA, normal appearance, nystagmus present on the left, results in 5 seconds ENT: hearing grossly normal - Neck Neck: no lymphadenopathy, normal ROM, no other, no rigidity, no stridor, no thyromegaly - Respiratory Respiratory: bilateral: CTA, negative: diminished, dullness, rales, rhonchi - Cardiovascular Rhythm: regular Heart sounds: normal: S1, S2 Abnormal Heart Sounds: no systolic murmur, no diastolic murmur, no rub, no S3 Gallop, no S4 Gallop, no click, no other - Gastrointestinal General gastrointestinal: normal bowel sounds, soft,nondistended, mild diffuse tenderness - Integumentary Integumentary: no rash - Neurologic Neurologic: CNII-XII intact - Musculoskeletal Musculoskeletal: gait not assessed due to dizziness and low blood pressure, strength equal bilaterally - Psychiatric Psychiatric: A&O x's 3, appropriate affect Results CBC & Chem 7: 09/25/17 09:35 09/25/17 10:29 Labs: Abnormal Lab Results - Last 24 Hours (Table) 09/25/17 09/25/17 09/25/17 Range/Units 09:35 10:29 12:09 Monocytes # 1.3 H (0-1.0) k/uL Sodium 132 L (137-145) mmol/L Potassium 2.4 L* (3.5-5.1) mmol/L Chloride 88 L (98-107) mmol/L Carbon Dioxide 39 H (22-30) mmol/L Glucose 103 H (74-99) mg/dL Calcium 8.3 L (8.4-10.2) mg/dL Total Protein 5.4 L (6.3-8.2) g/dL Albumin 3.0 L (3.5-5.0) g/dL Amylase <30 L (30-110) U/L Urine Protein Trace H (Negative) 09/25/17 Range/Units 13:35 Monocytes # (0-1.0) k/uL Sodium (137-145) mmol/L Potassium (3.5-5.1) mmol/L Chloride (98-107) mmol/L Carbon Dioxide (22-30) mmol/L Glucose (74-99) mg/dL Calcium (8.4-10.2) mg/dL Total Protein (6.3-8.2) g/dL Albumin (3.5-5.0) g/dL Amylase (30-110) U/L Urine Protein Trace H (Negative) Thrombosis Risk Factor Assmnt - DVT/VTE Prophylaxis DVT/VTE Prophylaxis: Pharmacologic Prophylaxis ordered - Choose All That Apply Each Risk Factor Represents 2 Points: Age 61-74 years Thrombosis Risk Factor Assessment Total Risk Factor Score: 2 Thrombosis Risk Factor Assessment Level: Low Risk Assessment and Plan Plan: 1. Acute diarrhea - differential includes C. diff colitis, infectious colitis - Metronidazole 500 mg every 8 hours for C. diff colitis, C. diff antigen - pending Levofloxacin 750 mg IV daily for infectious colitis - CT abdomen ordered to rule out colitis - X-ray abdomen negative for any acute abnormality - No recent antibiotic, use on a new medication added NyQuil - C. diff antigen ending, stool culture, ova and parasite, stool WBC pending #2 hypotention likely secondary to dehydration, hypovolemic shock - Status post 30 mL/kg fluid resuscitation -Lactic acid ordered pending - Continue IV normal saline at 1 50 mL/h #3 hypokalemia likely secondary to diarrhea - Status post 40 mEq potassium orally +60 mg IV repletion - Repeat potassium pending #4 hyponatremia likely secondary to dehydration continue fluid resuscitation #5 hypertension- hold home medications including hydrochlorothiazide, metoprolol , Norvasc and lisinopril #6 depression- continue duloxetine at home dose #7 BPH- hold Flomax due to hypotension #8 history of TIA/stroke- continue aspirin 81 milligrams daily #9 nystagmus- meclizine 12.5 mg 2 times a day when necessary dizziness #10 GI prophylaxis Pepcid 20 mg IV twice a day #11 DVT prophylaxis heparin 5000 every 12 subcu twice daily 12 cord status no code
[2017-09-25] MEDS ORDERED: RX INFO: IV CONTRAST WAS GIVEN 1 EACH MISC MISCELLANE PRN (14:09)
[2017-09-25] MEDS ORDERED: MECLIZINE 12.5 MG TAB PO PRN (14:28)
[2017-09-25] MEDS: IOHEXOL 350 MG/ML 25 ML BOTTLE (ORAL USE) PO PRN ×2 (14:35→15:25)
[2017-09-25 14:57] LABS: Basophils % (A) 1 %; Eosinophils # (A) 0.1 k/uL (0-0.7); Eosinophils % (A) 2 %; HCT 47.6 % (39.0-53.0); HGB 14.7 gm/dL (13.0-17.5); Luc # (Auto) 0.06; Luc % (Auto) 1; Lymphocytes % (A) 12 %; MCH 30.1 pg (25.0-35.0); MCHC 30.9 g/dL (31.0-37.0); MCV 97.2 fL (80.0-100.0); Mean Platelet Volume 8.6; Monocytes # (A) 0.5 k/uL (0-1.0); Monocytes % (A) 6 %; Neutrophils # (A) 6.8 k/uL (1.3-7.7); Neutrophils % (A) 79 %; RDW 13.4 % (11.5-15.5); WBC 8.6 k/uL (3.8-10.6); WBC (Perox) 8.44
[2017-09-25] MEDS: metroNIDAZOLE 500 MG TAB PO SCH ×2 (14:59→21:13)
[2017-09-25] MEDS: LEVOFLOXACIN 750MG-D5W PMX 750 MG in DEXTROSE/WATER 1 150ML.BAG IVPB SCH (14:59)
[2017-09-25] MEDS: NICOTINE 14MG/24HR PATCH TRANSDERM SCH (14:59)
--- NOTE | 2017-09-25 16:31 | CT ---
EXAMINATION TYPE: CT abdomen pelvis w con DATE OF EXAM: 09/25/2017 COMPARISON: NONE HISTORY: Diarrhea and positive hemoccult. CT DLP: 1118.60 mGycm Automated exposure control for dose reduction was used. TECHNIQUE: Helical acquisition of images was performed from the lung bases through the pelvis. CONTRAST: Performed with Oral Contrast and with IV Contrast, patient injected with 100 mL of Omnipaque 300. FINDINGS: There is some patchy atelectasis at the posterior lung bases and more on the right side. There is no pleural effusion. Liver shows no focal defect. Gallbladder is large but there is no gallbladder wall thickening. There is no evidence of the pancreatic mass. Spleen appears normal. There is severe cortical thinning in the right kidney. Left kidney show satisfactory contrast opacifi cation with no hydronephrosis. There is compensatory hypertrophy of the left kidney. There is no retr operitoneal adenopathy. Bladder distends smoothly. Prostate appears enlarged. Prostate measures 6 cm. Appendix appears normal. I see no intestinal wall thickening. There are no dilated loops. There is no ascites. I see no focal bone destruction. There is moderate atherosclerotic vascular calcification. There is probable iliac artery stenosis. There is extensive plaque in the mid abdominal aorta at the level of the superior mesenteric artery. There could be aortic stenosis.: IMPRESSION: MILDLY DILATED GALLBLADDER BUT NO DILATED DUCTS. GALLBLADDER MEASURES 4.6 CM IN DIAMETER. RIGHT RENAL ATROPHY. EXTENSIVE ATHEROSCLEROTIC VASCULAR DISEASE. NO SIGN OF ACUTE ABDOMEN AND PELVIS. THERE ARE PROBABLE SIGMOID DIVERTICULA WITHOUT EVIDENCE OF DIVERTICULITIS. Patchy scarring or atelectasis at the posterior lung bases.
[2017-09-25] MEDS: HEPARIN SODIUM,PORCINE 5,000 UNIT/ML 1 ML VIAL SQ SCH (20:22)
[2017-09-25] MEDS: FAMOTIDINE 20 MG/2 ML VIAL IV SCH (20:22)
[2017-09-25] MEDS ORDERED: Potassium Replacement Protocol 1 EACH MISC MISCELLANE PRN (22:55)
[2017-09-26] MEDS: POTASSIUM CHLORIDE 10 MEQ, LIDOCAINE 2% INJ 10 MG in SODIUM CHLORIDE 0.9% 100 ML IVPB SCH ×2 (00:39→01:41)
[2017-09-26] MEDS: Acetaminophen-Codeine 300-30mg TAB PO PRN ×3 (05:18→20:40)
[2017-09-26] MEDS: metroNIDAZOLE 500 MG TAB PO SCH ×3 (08:51→20:37)
[2017-09-26] MEDS: HEPARIN SODIUM,PORCINE 5,000 UNIT/ML 1 ML VIAL SQ SCH ×2 (08:52→20:41)
[2017-09-26] MEDS: FAMOTIDINE 20 MG/2 ML VIAL IV SCH ×2 (08:52→20:38)
[2017-09-26] MEDS: PANTOPRAZOLE 40 MG/10 ML VIAL IV SCH (08:52)
[2017-09-26] MEDS: NICOTINE 14MG/24HR PATCH TRANSDERM SCH (08:52)
[2017-09-26] MEDS: SODIUM CHLORIDE 0.9% 1,000 ML IV SCH ×2 (08:52→16:16)
[2017-09-26] MEDS ORDERED: NICOTINE 14MG/24HR PATCH TRANSDERM SCH (09:00)
[2017-09-26 09:41] LABS: ALT 31 U/L (21-72); AST 36 U/L (17-59); Alkaline Phosphatase 43 U/L (38-126); Anion Gap 4 mmol/L; Aty Lym Flag Slight; Blood Urea Nitrogen 9 mg/dL (9-20); CH 31.3; CHCM 31.7; Calcium 8.2 mg/dL (8.4-10.2); Carbon Dioxide 28 mmol/L (22-30); Chloride 102 mmol/L (98-107); Glucose 130 mg/dL (74-99); HCT 43.3 % (39.0-53.0); HDW 2.25; HGB 13.5 gm/dL (13.0-17.5); Large Platelets Flag Moderate; MCH 30.9 pg (25.0-35.0); MCHC 31.2 g/dL (31.0-37.0); MCV 98.8 fL (80.0-100.0); Mean Platelet Volume 11.1; Non-African American GFR(MDRD) >60 (>60 ml/min/1.73 sqM); RBC 4.38 m/uL (4.30-5.90); RDW 13.7 % (11.5-15.5); Sodium 134 mmol/L (137-145); Total Bilirubin 0.3 mg/dL (0.2-1.3); Total Protein 5.3 g/dL (6.3-8.2); WBC 6.1 k/uL (3.8-10.6); WBC (Perox) 8.35
[2017-09-26 10:07] LABS: Add Differential Manual Differential
[2017-09-26 10:08] LABS: Nucleated Red Blood Cells 0 /100 WBC (0-0); Polychromasia Present; Total Cells Counted 100
[2017-09-26] MEDS: POTASSIUM CHLORIDE ER 20 MEQ TAB.ER PO SCH ×2 (12:20→15:32)
--- NOTE | 2017-09-26 14:14 | P.PN ---
Subjective Progress Note Date: 09/26/17 Principal diagnosis: Diarrhea, hypokalemia this is a 72 years old male with past medical history of hypertension , recent stroke 3 months ago patient of Dr. Metz presents to ED with multiple episodes of diarrhea for the past 1 week. He was unable to come out of his bed and had fecal incontinence in his bed but laid in it due to increased weakness. Patient denies any previous episodeof diarrhea. He has been taking NyQuil for the past week and denies any new medication or antibiotic use in the past month. Patient denies any nausea, vomiting, blood in her stool. Denies any history of C. diff or previous episodes of diarrhea. He is currently dealing with worsening dizziness with decreased hearing since a stroke. He follows a neurologist outpatient who has been investigating his dizziness but does not think it is related to stroke. Patient has complete occlusion of bilateral carotid and is currently looking for a vascular surgeon for endarterectomy. In the emergency, patient was found to have a potassium of 2.4, sodium 132, chloride 88, bicarb 39 suggestive of metabolic alkalosis secondary to dehydration. Patient received a liter bolus of normal saline along with 40 mEq of potassium orally with 60 mEq of IV potassium. Normal saline was started at 100 mL/h and patient was admitted. 09/26 no episodes of loose stool last night. Patient does have balance abnormalities noted, physical therapy assessment pending. Potassium this morning is 3, continue repletion per protocol.CT abdomen with contrast suggestive of a dilated gallbladder but no gallbladder wall thickening, severe cortical thinning in the right kidney but no hydronephrosis seen. Prostate slightly enlarged measures 6 cm. No dilated bowel loops, no ascites. 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 Vascular surgery consulted for iliac artery and mesenteric artery stenosis. Gastroenterology consulted for positive Hemoccult stool, Objective - Vital Signs Vital signs: Vital Signs Temp 97.3 F L 09/26/17 07:00 Pulse 88 09/26/17 07:00 Resp 18 09/26/17 07:00 BP 113/83 09/26/17 07:00 Pulse Ox 97 09/26/17 07:54 Intake & Output 09/25/17 09/26/17 09/26/17 19:59 06:59 18:59 Intake Total 800 Output Total Balance 800 Weight Intake: Oral 800 Output: Urine Other: Voiding Method # Voids - Exam - Constitutional General appearance: cooperative, no acute distress, obese - EENT Eyes: anicteric sclerae, PERRLA, normal appearance ENT: hearing grossly normal - Neck Neck: no lymphadenopathy, normal ROM, no other, no rigidity, no stridor, no thyromegaly - Respiratory Respiratory: bilateral: CTA, negative: diminished, dullness, rales, rhonchi - Cardiovascular Rhythm: regular Heart sounds: normal: S1, S2 Abnormal Heart Sounds: no systolic murmur, no diastolic murmur, no rub, no S3 Gallop, no S4 Gallop, no click, no other - Gastrointestinal General gastrointestinal: normal bowel sounds, soft and nontender - Integumentary Integumentary: no rash - Neurologic Neurologic: CNII-XII intact - Musculoskeletal Musculoskeletal: gait widebase , strength equal bilaterally - Psychiatric Psychiatric: A&O x's 3, appropriate affect - Labs CBC & Chem 7: 09/26/17 08:26 09/26/17 08:26 Labs: Abnormal Lab Results - Last 24 Hours (Table) 09/25/17 09/26/17 Range/Units 21:57 08:26 Sodium 134 L (137-145) mmol/L Potassium 2.8 L* 3.0 L* (3.5-5.1) mmol/L Glucose 130 H (74-99) mg/dL Calcium 8.2 L (8.4-10.2) mg/dL Total Protein 5.3 L (6.3-8.2) g/dL Albumin 2.9 L (3.5-5.0) g/dL Microbiology - Last 24 Hours (Table) 09/25/17 13:35 Urine Culture - Preliminary Urine,Clean Catch Assessment and Plan Plan: 1. Acute diarrhea - differential includes C. diff colitis, infectious colitis, chronic ischemic colitis - Patient had no bowel movement since admission , Metronidazole 500 mg every 8 hours for C. diff colitis, C. diff antigen - pending Levofloxacin 750 mg IV daily for infectious colitis - CT abdomen ordered to rule out colitis, likely viral as CT abdomen negative for any colitis that would suggest ischemic or infectious etiology. Continue antibiotic until seen by gastroenterology - X-ray abdomen negative for any acute abnormality - No recent antibiotic, use on a new medication added NyQuil - C. diff antigen pending, stool culture, ova and parasite, stool WBC pending #2 hypotention likely secondary to dehydration, hypovolemic shock - Status post 30 mL/kg fluid resuscitation -Lactic acid ordered pending - Continue IV normal saline at 1 50 mL/h #3 hypokalemia likely secondary to diarrhea - Status post 40 mEq potassium orally +60 mg IV repletion - Repeat potassium pending #4 hyponatremia likely secondary to dehydration continue fluid resuscitation #5 hypertension- hold home medications including hydrochlorothiazide, metoprolol , Norvasc and lisinopril #6 depression- continue duloxetine at home dose #7 BPH- hold Flomax due to hypotension #8 history of TIA/stroke- continue aspirin 81 milligrams daily #9 nystagmus- meclizine 12.5 mg 2 times a day when necessary dizziness #10 GI prophylaxis Pepcid 20 mg IV twice a day #11 DVT prophylaxis heparin 5000 every 12 subcu twice daily 12 code status no code
--- NOTE | 2017-09-26 15:03 | ECHOF ---
Referral Reason:hypotension MEASUREMENTS -------- HEIGHT: 172.7 cm WEIGHT: 104.3 kg BP: 130/40 RVIDd: 3.0 cm (< 3.3) IVSd: 1.4 cm (0.6 - 1.1) LVIDd: 4.8 cm (3.9 - 5.3) LVPWd: 1.3 cm (0.6 - 1.1) IVSs: 1.5 cm LVIDs: 3.4 cm LVPWs: 1.6 cm LAESV Index (A-L): 34.61 ml/m Ao Diam: 4.4 cm (2.0 - 3.7) AV Cusp: 3.4 cm (1.5 - 2.6) LA Diam: 2.0 cm (2.7 - 3.8) TAPSE: 3.2 cm MV E Jonathan: 0.49 m/s MV DecT: 271 ms MV A Jonathan: 0.99 m/s MV E/A Ratio: 0.49 RAP: 5.00 mmHg RVSP: 12.06 mmHg FINDINGS -------- Sinus rhythm. This was a technically adequate study. The left ventricular size is normal. There is mild concentric left ventricular hypertrophy. Overa ll left ventricular systolic function is low-normal with, an EF between 50 - 55 %. The right ventricle is normal in size. LA is moderately dilated 34-39 ml/m2 The right atrial size is normal. The aortic valve was not well visualized. Moderate mitral annular calcification present. Mild mitral regurgitation is present. Mild tricuspid regurgitation present. There is no evidence of pulmonary hypertension. The right v entricular systolic pressure, as measured by Doppler, is 12.06mmHg. The pulmonic valve was not well visualized. The aortic root size is normal. There is no pericardial effusion. CONCLUSIONS -------- 1. Sinus rhythm. 2. The left ventricular size is normal. 3. There is mild concentric left ventricular hypertrophy. 4. Overall left ventricular systolic function is low-normal with, an EF between 50 - 55 %. 5. The right ventricle is normal in size. 6. LA is moderately dilated 34-39 ml/m2 7. The aortic valve was not well visualized. 8. Moderate mitral annular calcification present. 9. Mild mitral regurgitation is present. 10. Mild tricuspid regurgitation present. 11. There is no evidence of pulmonary hypertension. 12. The right ventricular systolic pressure, as measured by Doppler, is 12.06mmHg. 13. The pulmonic valve was not well visualized. 14. There is no pericardial effusion. RN PATIENT SERVICES: Alicia Hui RDCS
[2017-09-26] MEDS: LEVOFLOXACIN 750MG-D5W PMX 750 MG in DEXTROSE/WATER 1 150ML.BAG IVPB SCH (16:16)
[2017-09-27] MEDS: Acetaminophen-Codeine 300-30mg TAB PO PRN (00:36)
[2017-09-27] MEDS: SODIUM CHLORIDE 0.9% 1,000 ML IV SCH (05:12)
[2017-09-27 06:59] LABS: Basophils % (A) 1 %; CH 30.7; CHCM 30.7; Eosinophils # (A) 0.3 k/uL (0-0.7); Eosinophils % (A) 5 %; HCT 48.3 % (39.0-53.0); HDW 2.33; HGB 14.6 gm/dL (13.0-17.5); Hypochromasia Slight; Luc # (Auto) 0.09; Luc % (Auto) 1; Lymphocytes # (A) 1.3 k/uL (1.0-4.8); Lymphocytes % (A) 18 %; MCH 30.4 pg (25.0-35.0); MCHC 30.3 g/dL (31.0-37.0); MCV 100.4 fL (80.0-100.0); Macrocytosis Slight; Mean Platelet Volume 6.5; Monocytes # (A) 0.4 k/uL (0-1.0); Monocytes % (A) 6 %; Neutrophils % (A) 70 %; RBC 4.81 m/uL (4.30-5.90); RDW 13.7 % (11.5-15.5); WBC 7.2 k/uL (3.8-10.6); WBC (Perox) 7.26
[2017-09-27 07:37] LABS: ALT 36 U/L (21-72); AST 34 U/L (17-59); Alkaline Phosphatase 44 U/L (38-126); Anion Gap 7 mmol/L; Blood Urea Nitrogen 6 mg/dL (9-20); Calcium 8.8 mg/dL (8.4-10.2); Carbon Dioxide 26 mmol/L (22-30); Chloride 104 mmol/L (98-107); Glucose 95 mg/dL (74-99); Non-African American GFR(MDRD) >60 (>60 ml/min/1.73 sqM); Potassium 3.6 mmol/L (3.5-5.1); Sodium 137 mmol/L (137-145); Total Bilirubin 0.4 mg/dL (0.2-1.3); Total Protein 6.1 g/dL (6.3-8.2)
[2017-09-27 08:24] VITALS: BP 120/84; PULSE 89; RESP 16; TEMP 97.4
[2017-09-27] MEDS: FAMOTIDINE 20 MG/2 ML VIAL IV SCH (08:52)
[2017-09-27] MEDS: metroNIDAZOLE 500 MG TAB PO SCH (08:52)
[2017-09-27] MEDS: NICOTINE 14MG/24HR PATCH TRANSDERM SCH (08:52)
[2017-09-27] MEDS: PANTOPRAZOLE 40 MG/10 ML VIAL IV SCH (08:52)
[2017-09-27] MEDS: HEPARIN SODIUM,PORCINE 5,000 UNIT/ML 1 ML VIAL SQ SCH (08:52)
[2017-09-27] MEDS ORDERED: LEVOFLOXACIN 750 MG TAB PO SCH (15:00)
--- NOTE | 2017-09-27 15:24 | CONS ---
CONSULTATION This is a 72-year-old gentleman who has been admitted to [facility] with history of multiple episodes of diarrhea for the past 1 week. No nausea, vomiting, no evidence of blood in the stool. No history of C diff. On admission. his potassium was 2.4 which was replaced. I was consulted for vascular evaluation. CT scan of the abdomen showed dilated gallbladder but no gallstones. CTA showed some atherosclerosis disease of the iliac artery. I was consulted for vascular evaluation. PHYSICAL EXAMINATION: Patient was seen in his room. He is going to be discharged today. Neck is supple. No bruit appreciated. Chest is clear. Abdomen is soft. Femoral pulses are 1+ bilateral. No evidence of venous or arterial ulcer noted. PLAN: Patient going home today. Will follow up in my office for noninvasive study. Discussed with the . MMREJIL / IJN: [id number] /
[2017-09-28] MEDS ORDERED: PANTOPRAZOLE 40 MG TABLET PO SCH (07:30)
--- NOTE | 2017-09-28 14:50 | P.DS ---
Providers Date of admission: 09/25/17 11:16 Expected date of discharge: 09/27/17 Attending physician: Sigifredo Amezquita Consults: 09/25/17 18:53 Consult Physician Routine Consulting Provider: Kevin Kennedy Consult Reason/Comments: ileic artery stenosis Do you want consulting provider notified?: Yes 09/26/17 14:08 Consult Physician Routine Consulting Provider: Reina Springer Consult Reason/Comments: admitted for diarrhea with hemoccult stool Do you want consulting provider notified?: Yes Primary care physician: Alexei Metz [facility] Course: this is a 72 years old male with past medical history of hypertension , recent stroke 3 months ago patient of Dr. Metz presents to ED with multiple episodes of diarrhea for the past 1 week. He was unable to come out of his bed and had fecal incontinence in his bed but laid in it due to increased weakness. Patient denies any previous episodeof diarrhea. He has been taking NyQuil for the past week and denies any new medication or antibiotic use in the past month. Patient denies any nausea, vomiting, blood in her stool. Denies any history of C. diff or previous episodes of diarrhea. He is currently dealing with worsening dizziness with decreased hearing since a stroke. He follows a neurologist outpatient who has been investigating his dizziness but does not think it is related to stroke. Patient has complete occlusion of bilateral carotid and is currently looking for a vascular surgeon for endarterectomy. In the emergency, patient was found to have a potassium of 2.4, sodium 132, chloride 88, bicarb 39 suggestive of metabolic alkalosis secondary to dehydration. Patient received a liter bolus of normal saline along with 40 mEq of potassium orally with 60 mEq of IV potassium. Normal saline was started at 100 mL/h and patient was admitted. 09/26 no episodes of loose stool last night. Patient does have balance abnormalities noted, physical therapy assessment pending. Potassium this morning is 3, continue repletion per protocol.CT abdomen with contrast suggestive of a dilated gallbladder but no gallbladder wall thickening, severe cortical thinning in the right kidney but no hydronephrosis seen. Prostate slightly enlarged measures 6 cm. No dilated bowel loops, no ascites. 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 Vascular surgery consulted for iliac artery and mesenteric artery stenosis. Gastroenterology consulted for positive Hemoccult stool, 09/27: Patient has been seen by Dr. Kennedy and he has seen him in the past with plan for follow-up. GI consult has not occurred and this will be canceled. Patient lives at home alone but he does have a caregiver that helps him. He has had no stools. Potassium is 3.6. Patient will be discharged home today in stable condition. Discharge diagnoses: 1. Acute diarrhea secondary to viral gastroenteritis 2. Hypotention likely secondary to dehydration, hypovolemic shock 3. Hypokalemia likely secondary to diarrhea #4 hyponatremia li #5 hypertension #6 depression, recurrent #7 BPH #8 history of TIA/stroke #9 nystagmus- Discharge plan: Home with [facility] Impression and plan of care have been directed as dictated by the signing physician. Etelvina Gallegos nurse practitioner acting as scribe for signing physician. Patient Condition at Discharge: Good Plan - Discharge Summary New Discharge Prescriptions: New Meclizine [Antivert] 12.5 mg PO BID PRN tab PRN Reason: Vertigo Nicotine 14Mg/24Hr Patch [Habitrol] 1 patch TRANSDERM DAILY #30 patch Lisinopril [Zestril] 20 mg PO DAILY #30 tab Continue Finasteride [Proscar] 5 mg PO DAILY Metoprolol Succinate [Toprol XL] 100 mg PO DAILY Vit C/E/Zn/Coppr/Lutein/Zeaxan [Preservision Areds 2 Softgel] 1 cap PO BID [place]al 160 mg PO BID DULoxetine HCL 40 mg PO DAILY Gabapentin [Neurontin] 300 mg PO BID Discontinued amLODIPine [Norvasc] 5 mg PO DAILY Lisinopril 40 mg PO DAILY Hydrochlorothiazide [Hydrodiuril] 12.5 mg PO DAILY Discharge Medication List Finasteride [Proscar] 5 mg PO DAILY 04/09/17 [History] Metoprolol Succinate [Toprol XL] 100 mg PO DAILY 04/09/17 [History] Vit C/E/Zn/Coppr/Lutein/Zeaxan [Preservision Areds 2 Softgel] 1 cap PO BID 04/09 [History] DULoxetine HCL 40 mg PO DAILY 07/04/17 [History] Saw Jal 160 mg PO BID 07/04/17 [History] Gabapentin [Neurontin] 300 mg PO BID 08/26/17 [History] Lisinopril [Zestril] 20 mg PO DAILY #30 tab 11/06/17 [Rx] Meclizine [Antivert] 12.5 mg PO BID PRN tab 09/27/17 [Rx] Nicotine 14Mg/24Hr Patch [Habitrol] 1 patch TRANSDERM DAILY #30 patch 09/27/17 [ Rx] Follow up Appointment(s)/Referral(s): [facility], [NON-STAFF] - 1 Week Alexei Metz MD [Primary Care Provider] - 09/29/17 10:15 am Patient Instructions/Handouts: How to Stop Smoking (DC), Hypokalemia (DC) Discharge Disposition: HOME WITH HOME HEALTH SERVICES
== END 2017-09-27 13:45 | disposition home health service (06) | DRG 391 ==
LOC: EC 09:04 → 4MS4W 11:16
PROVIDERS: ADMIT Internal Medicine Geriatric Medicine; ATTEND Internal Medicine Geriatric Medicine
DX: A08.4 Viral intestinal infection, unspecified (principal); R57.1 Hypovolemic shock; K55.1 Chronic vascular disorders of intestine; E87.3 Alkalosis; E87.1 Hypo-osmolality and hyponatremia; I10 Essential (primary) hypertension; E87.6 Hypokalemia; F17.200 Nicotine dependence, unspecified, uncomplicated; F32.9 Major depressive disorder, single episode, unspecified; H55.00 Unspecified nystagmus; I70.8 Atherosclerosis of other arteries; N40.0 Benign prostatic hyperplasia without lower urinary tract symptoms; R15.9 Full incontinence of feces; I25.10 Atherosclerotic heart disease of native coronary artery without angina pectoris; I69.998 Other sequelae following unspecified cerebrovascular disease; Z79.899 Other long term (current) drug therapy; Z91.030 Bee allergy status
CPT/HCPCS: 36415; 74000; 74177; 80053; 81003; 82150; 82272; 83605; 83690; 83735; 84132; 85025; 87086; 93306; 96361; 96374; 99285

== ENCOUNTER 2018-01-25 12:35 | Inpatient (IN) | payer MEDICARE ==
[2018-01-25] MEDS ORDERED: ASPIRIN 81 MG PO STA (12:56)
--- NOTE | 2018-01-25 13:24 | XR ---
EXAMINATION TYPE: XR chest 2V DATE OF EXAM: 01/25/2018 COMPARISON: 07/04/2017 HISTORY: 72-year-old male with chest pain and shortness of breath TECHNIQUE: Frontal and lateral views FINDINGS: Heart mildly enlarged. Atherosclerotic arch calcifications. Leftward patient rotation alters normal c ardiac and mediastinal contours. There are small bilateral pleural effusions with a patchy bibasilar densities. Visualized upper lungs relatively clear. Chronic appearing bony changes at the left coraco id process. IMPRESSION: Mild cardiomegaly. There are small pleural effusions with adjacent atelectasis and/or consolidation. Correlate for mild CHF as an etiology.
[2018-01-25 13:30] LABS: INR 1.4 (<1.2); Partial Thromboplastin Time 23.4 sec (22.0-30.0); Prothrombin Time 13.3 sec (9.0-12.0)
[2018-01-25 13:33] LABS: Albumin 3.6 g/dL (3.5-5.0); Basophils % (A) 0 %; Eosinophils # (A) 0.1 k/uL (0-0.7); Eosinophils % (A) 1 %; HCT 40.8 % (39.0-53.0); HGB 12.9 gm/dL (13.0-17.5); Hypochromasia Moderate; Lymphocytes # (A) 1.8 k/uL (1.0-4.8); Lymphocytes % (A) 22 %; MCH 27.3 pg (25.0-35.0); MCHC 31.7 g/dL (31.0-37.0); MCV 86.1 fL (80.0-100.0); Mean Platelet Volume 12.2; Monocytes # (A) 0.8 k/uL (0-1.0); Monocytes % (A) 9 %; Neutrophils # (A) 5.5 k/uL (1.3-7.7); Neutrophils % (A) 66 %; Platelet Count 171 k/uL (150-450); Potassium 4.5 mmol/L (3.5-5.1); RBC 4.74 m/uL (4.30-5.90); RDW 14.9 % (11.5-15.5); Total Bilirubin 0.5 mg/dL (0.2-1.3); Total Protein 6.2 g/dL (6.3-8.2); WBC 8.4 k/uL (3.8-10.6)
[2018-01-25] MEDS ORDERED: ONDANSETRON 4 MG/2 ML VIAL IVP PRN (14:44)
[2018-01-25] MEDS ORDERED: NALOXONE 0.4 MG/ML 1 ML VIAL IV PRN (14:44)
--- NOTE | 2018-01-25 14:44 | ED ---
SOB HPI - General Chief Complaint: Shortness of Breath Stated Complaint: Diff Breathing Time Seen by Provider: 01/25/18 12:44 Source: patient, family Mode of arrival: ambulatory Limitations: no limitations - History of Present Illness Initial Comments: Patient complains of shortness of breath. His symptoms have been getting worse for couple weeks. He has no lightheadedness or dizziness. He has no nausea or vomiting. He has a history of COPD. He has been taking nebulized breathing treatments of albuterol. He thinks maybe he took too much of it. He is not having palpitations. He has no pain or swelling in the abdomen or back. He does have some edema in the legs. He has no neck pain or stiffness. Nothing else makes his symptoms better or worse. He has not taken any additional medications for the shortness of breath or leg swelling. He denies any long plane or car rides or recent travel. - Related Data Home Medications Medication Instructions Recorded Confirmed Finasteride [Proscar] 5 mg PO DAILY 04/09/17 01/25/18 Saw [place] 160 mg PO HS 07/04/17 01/25/18 Albuterol Nebulized [Ventolin 2.5 mg INHALATION Q6H PRN 01/25/18 01/25/18 Nebulized] Aspirin 81 mg PO HS 01/25/18 01/25/18 Atorvastatin Calcium [Lipitor] 40 mg PO HS 01/25/18 01/25/18 Montelukast Sodium [Singulair] 10 mg PO HS 01/25/18 01/25/18 Tamsulosin [Flomax] 0.4 mg PO DAILY 01/25/18 01/25/18 tiZANidine HCL [tiZANidine HCL] 2 mg PO BID 01/25/18 01/25/18 traMADol HCl [Ultram] 50 mg PO Q6H PRN 01/25/18 01/25/18 Allergies Allergy/AdvReac Type Severity Reaction Status Date / Time venom-honey bee Allergy Anaphylaxis Verified 01/25/18 13:50 Review of Systems ROS Statement: Those systems with pertinent positive or pertinent negative responses have been documented in the HPI. ROS Other: All systems not noted in ROS Statement are negative. Past Medical History Past Medical History: COPD, CVA/TIA, Hypertension History of Any Multi-Drug Resistant Organisms: None Reported Past Surgical History: Back Surgery Additional Past Surgical History / Comment(s): carotid endardectomy Past Psychological History: No Psychological Hx Reported Smoking Status: Current every day smoker Past Alcohol Use History: None Reported Past Drug Use History: None Reported - Past Family History Father Additional Family Medical History / Comment(s): father at the age of 70, sudden unclear etiology Mother Additional Family Medical History / Comment(s): mother of oral age. Patient has no siblings General Exam Limitations: no limitations General appearance: alert, in no apparent distress Head exam: Present: atraumatic, normocephalic, normal inspection Eye exam: Present: normal appearance, PERRL, EOMI. Absent: scleral icterus, conjunctival injection, periorbital swelling ENT exam: Present: normal exam, mucous membranes moist Neck exam: Present: normal inspection. Absent: tenderness, meningismus, lymphadenopathy Respiratory exam: Present: rales, rhonchi. Absent: respiratory distress, wheezes, stridor Cardiovascular Exam: Present: normal rhythm, tachycardia, normal heart sounds. Absent: systolic murmur, diastolic murmur, rubs, gallop, clicks GI/Abdominal exam: Present: soft, normal bowel sounds. Absent: distended, tenderness, guarding, rebound, rigid Extremities exam: Present: full ROM, normal capillary refill, pedal edema. Absent: tenderness, joint swelling, calf tenderness Back exam: Present: normal inspection Neurological exam: Present: alert, oriented X3, CN II-XII intact Psychiatric exam: Present: normal affect, normal mood Skin exam: Present: warm, dry, intact, normal color. Absent: rash Course Vital Signs 01/25/18 01/25/18 01/25/18 12:37 13:06 13:42 Temperature 98.1 F Pulse Rate 147 H 145 H Respiratory 20 18 18 Rate Blood Pressure 104/73 O2 Sat by Pulse 94 L 98 Oximetry 01/25/18 14:22 Temperature Pulse Rate 141 H Respiratory 18 Rate Blood Pressure 103/57 O2 Sat by Pulse 99 Oximetry Medical Decision Making - Medical Decision Making Patient presents with shortness of breath. He has no evidence of wheezing suggest COPD, but his exam is consistent with heart failure. He has a negative troponin but extremely elevated BNP. He will be admitted to the hospital. - Lab Data Result diagrams: 01/25/18 13:00 01/25/18 13:00 Lab Results 01/25/18 01/25/18 01/25/18 Range/Units 13:00 13:00 13:00 WBC 8.4 (3.8-10.6) k/uL RBC 4.74 (4.30-5.90) m/uL Hgb 12.9 L (13.0-17.5) gm/dL Hct 40.8 (39.0-53.0) % MCV 86.1 (80.0-100.0) fL MCH 27.3 (25.0-35.0) pg MCHC 31.7 (31.0-37.0) g/dL RDW 14.9 (11.5-15.5) % Plt Count 171 (150-450) k/uL Neutrophils % 66 % Lymphocytes % 22 % Monocytes % 9 % Eosinophils % 1 % Basophils % 0 % Neutrophils # 5.5 (1.3-7.7) k/uL Lymphocytes # 1.8 (1.0-4.8) k/uL Monocytes # 0.8 (0-1.0) k/uL Eosinophils # 0.1 (0-0.7) k/uL Basophils # 0.0 (0-0.2) k/uL Manual Slide Review Performed Hypochromasia Moderate PT (9.0-12.0) sec INR (<1.2) APTT (22.0-30.0) sec Sodium 131 L (137-145) mmol/L Potassium 4.5 (3.5-5.1) mmol/L Chloride 94 L (98-107) mmol/L Carbon Dioxide 26 (22-30) mmol/L Anion Gap 11 mmol/L BUN 18 (9-20) mg/dL Creatinine 1.01 (0.66-1.25) mg/dL Est GFR (CKD-EPI)AfAm 86 (>60 ml/min/1.73 sqM) Est GFR (CKD-EPI)NonAf 74 (>60 ml/min/1.73 sqM) Glucose 121 H (74-99) mg/dL Calcium 9.0 (8.4-10.2) mg/dL Magnesium 2.0 (1.6-2.3) mg/dL Total Bilirubin 0.5 (0.2-1.3) mg/dL AST 53 (17-59) U/L ALT 109 H (21-72) U/L Alkaline Phosphatase 111 (38-126) U/L Troponin I (0.000-0.034) ng/mL NT-Pro-B Natriuret Pep 6140 pg/mL Total Protein 6.2 L (6.3-8.2) g/dL Albumin 3.6 (3.5-5.0) g/dL 01/25/18 01/25/18 Range/Units 13:00 13:00 WBC (3.8-10.6) k/uL RBC (4.30-5.90) m/uL Hgb (13.0-17.5) gm/dL Hct (39.0-53.0) % MCV (80.0-100.0) fL MCH (25.0-35.0) pg MCHC (31.0-37.0) g/dL RDW (11.5-15.5) % Plt Count (150-450) k/uL Neutrophils % % Lymphocytes % % Monocytes % % Eosinophils % % Basophils % % Neutrophils # (1.3-7.7) k/uL Lymphocytes # (1.0-4.8) k/uL Monocytes # (0-1.0) k/uL Eosinophils # (0-0.7) k/uL Basophils # (0-0.2) k/uL Manual Slide Review Hypochromasia PT 13.3 H (9.0-12.0) sec INR 1.4 H (<1.2) APTT 23.4 (22.0-30.0) sec Sodium (137-145) mmol/L Potassium (3.5-5.1) mmol/L Chloride (98-107) mmol/L Carbon Dioxide (22-30) mmol/L Anion Gap mmol/L BUN (9-20) mg/dL Creatinine (0.66-1.25) mg/dL Est GFR (CKD-EPI)AfAm (>60 ml/min/1.73 sqM) Est GFR (CKD-EPI)NonAf (>60 ml/min/1.73 sqM) Glucose (74-99) mg/dL Calcium (8.4-10.2) mg/dL Magnesium (1.6-2.3) mg/dL Total Bilirubin (0.2-1.3) mg/dL AST (17-59) U/L ALT (21-72) U/L Alkaline Phosphatase (38-126) U/L Troponin I 0.031 (0.000-0.034) ng/mL NT-Pro-B Natriuret Pep pg/mL Total Protein (6.3-8.2) g/dL Albumin (3.5-5.0) g/dL 01/25/18 14:43 Twelve-lead EKG interpreted by me as showing ventricular 152 bpm, normal IA interval and QRS complexes, no ST elevation or depression, interpreted by me as sinus tachycardia. Disposition Clinical Impression: Congestive heart failure Disposition: ADMITTED IP TO THIS HOSP Condition: Fair Referrals: Alexei Metz MD [Primary Care Provider] - 1-2 days Time of Disposition: 14:44
[2018-01-25] MEDS ORDERED: NICOTINE 21MG/24HR PATCH TRANSDERM STA (15:19)
[2018-01-25] MEDS ORDERED: SODIUM CHLORIDE 0.9% 500 ML IV ONE (18:42)
[2018-01-25] MEDS ORDERED: SODIUM CHLORIDE 0.9% 1,000 ML IV SCH (18:45)
[2018-01-25] MEDS: FAMOTIDINE 20 MG TAB PO SCH (20:07)
[2018-01-25] MEDS: MONTELUKAST 10 MG TAB PO SCH (20:07)
[2018-01-25] MEDS: ATORVASTATIN 40 MG TAB PO SCH (20:07)
[2018-01-25] MEDS ORDERED: ASPIRIN 81 MG PO SCH (21:00)
[2018-01-25] MEDS: METOPROLOL TARTRATE 5 MG/5 ML VIAL IVP PRN (23:58)
[2018-01-26] MEDS: METOPROLOL TARTRATE 5 MG/5 ML VIAL IVP PRN (05:54)
[2018-01-26] MEDS ORDERED: DIGOXIN 250 MCG/ML 2 ML AMP IVP PRN (06:56)
[2018-01-26] MEDS ORDERED: DIGOXIN 250 MCG/ML 2 ML AMP IVP STA (06:57)
[2018-01-26] MEDS ORDERED: FUROSEMIDE 10 MG/ML 4 ML VIAL IV STA (08:57)
[2018-01-26] MEDS: FINASTERIDE 5 MG TAB PO SCH (09:34)
[2018-01-26] MEDS: APIXABAN 5 MG TAB PO SCH ×2 (09:34→19:43)
[2018-01-26] MEDS: FAMOTIDINE 20 MG TAB PO SCH ×2 (09:34→19:42)
[2018-01-26] MEDS: METOPROLOL TARTRATE 25 MG TAB PO SCH ×3 (09:34→19:43)
[2018-01-26] MEDS: TAMSULOSIN 0.4 MG CAP.ER.24H PO SCH (09:35)
--- NOTE | 2018-01-26 11:20 | P.CRDCN ---
History of Present Illness History of present illness: Patient presenting with shortness of breath Symptoms began around 19 of January No dizziness or presyncope No chest pain No extremity edema Labs reviewed and hemoglobin 12.9, sodium 131 potassium 4.5 BUN 18 creatinine 10 glucose 121 Normal troponins and BNP elevated Afebrile, heart rate 150 beats a minute patient was in atrial flutter with RVR, blood pressure 150/93 mmHg and 94/67 mmHg Impression Atrial flutter with RVR, symptomatic Carotid atherosclerosis status post carotid endarterectomy History of stroke Current smoker history of COPD Suggest Oral beta blockers for rate control but this will provide only suboptimal control of rate. I spoke to Dr. Penn and scheduled him for a TAMIR and I would proceed with an electrical cardioversion tomorrow ELIQUIS started today and should continue tomorrow ELIQUIS should not be held prior to the procedure Atrial flutter ablation electively in the future Lifelong anticoagulation VIVIAN VASC score is greater than 4 TAMIR and cardioversion tomorrow Past Medical History Past Medical History: COPD, CVA/TIA, Hypertension History of Any Multi-Drug Resistant Organisms: None Reported Past Surgical History: Back Surgery Additional Past Surgical History / Comment(s): carotid endardectomy Past Psychological History: No Psychological Hx Reported Smoking Status: Current every day smoker Past Alcohol Use History: None Reported Past Drug Use History: None Reported - Past Family History Father Additional Family Medical History / Comment(s): father at the age of 70, sudden unclear etiology Mother Additional Family Medical History / Comment(s): mother of oral age. Patient has no siblings Medications and Allergies Home Medications Medication Instructions Recorded Confirmed Type Finasteride [Proscar] 5 mg PO DAILY 04/09/17 01/25/18 History Saw [place] 160 mg PO HS 07/04/17 01/25/18 History Albuterol Nebulized [Ventolin 2.5 mg INHALATION Q6H PRN 01/25/18 01/25/18 History Nebulized] Aspirin 81 mg PO HS 01/25/18 01/25/18 History Atorvastatin Calcium [Lipitor] 40 mg PO HS 01/25/18 01/25/18 History Montelukast Sodium [Singulair] 10 mg PO HS 01/25/18 01/25/18 History Tamsulosin [Flomax] 0.4 mg PO DAILY 01/25/18 01/25/18 History tiZANidine HCL [tiZANidine HCL] 2 mg PO BID 01/25/18 01/25/18 History traMADol HCl [Ultram] 50 mg PO Q6H PRN 01/25/18 01/25/18 History Allergies Allergy/AdvReac Type Severity Reaction Status Date / Time venom-honey bee Allergy Anaphylaxis Verified 01/25/18 13:50 Physical Exam Vitals: Vital Signs Temp Pulse Pulse Resp BP BP BP 01/26/18 08:00 96.8 F L 146 H 115/93 01/26/18 03:32 98 F 145 H 19 94/67 01/26/18 00:00 98 F 150 H 17 94/53 01/25/18 21:00 98 F 142 H 20 98/76 90/76 01/25/18 20:00 94/60 84/58 01/25/18 18:08 87/63 01/25/18 17:17 98.7 F 141 H 18 100/67 01/25/18 16:00 141 H 18 01/25/18 15:05 96.2 F L 146 H 20 83/64 79/63 01/25/18 15:00 145 H 18 104/75 01/25/18 14:22 141 H 18 103/57 01/25/18 13:42 145 H 18 104/73 01/25/18 13:06 18 01/25/18 12:37 98.1 F 147 H 20 Pulse Ox 01/26/18 08:00 97 01/26/18 03:32 91 L 01/26/18 00:00 97 01/25/18 21:00 92 L 01/25/18 20:00 01/25/18 18:08 01/25/18 17:17 100 01/25/18 16:00 98 01/25/18 15:05 96 01/25/18 15:00 99 01/25/18 14:22 99 01/25/18 13:42 98 01/25/18 13:06 01/25/18 12:37 94 L Intake and Output 01/25/18 01/26/18 01/26/18 22:59 06:59 14:59 Intake Total 500 350 Output Total 300 Balance 500 50 Intake: Intake, IV Titration 500 350 Amount Sodium Chloride 0.9% 1, 350 000 ml @ 50 mls/hr IV . Q20H [facility] Rx#:[id number] Sodium Chloride 0.9% 500 500 ml @ 999 mls/hr IV .Q31M [facility] Rx#:[id number] Output: Urine 300 Other: Weight 94.4 kg 93.5 kg Results 01/25/18 13:00 01/25/18 13:00 Cardiac Enzymes 01/25/18 01/25/18 01/25/18 Range/Units 13:00 13:00 18:50 AST 53 (17-59) U/L Troponin I 0.031 0.030 (0.000-0.034) ng/mL 01/26/18 Range/Units 01:21 AST (17-59) U/L Troponin I 0.028 (0.000-0.034) ng/mL Coagulation 01/25/18 Range/Units 13:00 PT 13.3 H (9.0-12.0) sec APTT 23.4 (22.0-30.0) sec CBC 01/25/18 Range/Units 13:00 WBC 8.4 (3.8-10.6) k/uL RBC 4.74 (4.30-5.90) m/uL Hgb 12.9 L (13.0-17.5) gm/dL Hct 40.8 (39.0-53.0) % Plt Count 171 (150-450) k/uL Comprehensive Metabolic Panel 01/25/18 Range/Units 13:00 Sodium 131 L (137-145) mmol/L Potassium 4.5 (3.5-5.1) mmol/L Chloride 94 L (98-107) mmol/L Carbon Dioxide 26 (22-30) mmol/L BUN 18 (9-20) mg/dL Creatinine 1.01 (0.66-1.25) mg/dL Glucose 121 H (74-99) mg/dL Calcium 9.0 (8.4-10.2) mg/dL AST 53 (17-59) U/L ALT 109 H (21-72) U/L Alkaline Phosphatase 111 (38-126) U/L Total Protein 6.2 L (6.3-8.2) g/dL Albumin 3.6 (3.5-5.0) g/dL Current Medications Generic Name Dose Route Start Last Admin Trade Name Freq PRN Reason Stop Dose Admin Apixaban 5 mg 01/26/18 09:00 01/26/18 09:34 Eliquis PO 5 mg BID LAURA Administration Aspirin 81 mg 01/25/18 21:00 01/25/18 20:07 Aspirin PO 81 mg HS LAURA Administration Atorvastatin Calcium 40 mg 01/25/18 21:00 01/25/18 20:07 Lipitor PO 40 mg HS LAURA Administration Famotidine 20 mg 01/25/18 21:00 01/26/18 09:34 Pepcid PO 20 mg BID LAURA Administration Finasteride 5 mg 01/26/18 09:00 01/26/18 09:34 Proscar PO 5 mg DAILY LAURA Administration Furosemide 80 mg 01/26/18 16:00 Lasix PO BID@0900,1600 [facility] Metoprolol Tartrate 25 mg 01/26/18 09:00 01/26/18 09:34 Lopressor PO 25 mg TID LAURA Administration Montelukast Sodium 10 mg 01/25/18 21:00 01/25/18 20:07 Singulair PO 10 mg HS LAURA Administration Naloxone HCl 0.2 mg 01/25/18 14:44 Narcan IV Q2M PRN Opioid Reversal Ondansetron HCl 4 mg 01/25/18 14:44 Zofran IVP Q8HR PRN Nausea And Vomiting Tamsulosin HCl 0.4 mg 01/26/18 09:00 01/26/18 09:35 Flomax PO 0.4 mg DAILY LAURA Administration Tizanidine HCl 2 mg 01/25/18 21:00 01/26/18 09:35 Zanaflex PO 2 mg BID [facility] Administration Tramadol HCl 50 mg 01/25/18 14:47 Ultram PO Q6H PRN Pain Intake and Output 01/25/18 01/26/18 01/26/18 22:59 06:59 14:59 Intake Total 500 350 Output Total 300 Balance 500 50 Intake: Intake, IV Titration 500 350 Amount Sodium Chloride 0.9% 1, 350 000 ml @ 50 mls/hr IV . Q20H [facility] Rx#:[id number] Sodium Chloride 0.9% 500 500 ml @ 999 mls/hr IV .Q31M [facility] Rx#:[id number] Output: Urine 300 Other: Weight 94.4 kg 93.5 kg 01/25/18 13:00 01/25/18 13:00
--- NOTE | 2018-01-26 14:55 | P.HPIM ---
History of Present Illness H&P Date: 01/26/18 Chief Complaint: shortness of breath this is a 72 years old male with past medical history of hypertension , recent stroke 3 months ago patient of Dr. Metz care of guardian Etelvina last admitted in September for acute gastroenteritis comes in with shortness of breath that has been getting worse for the past few weeks. He denies any nausea or vomiting, lightheadedness or dizziness, no chest pain. chest x-ray done in the ER suggestive of mild CHF, labs were positive for a BNP of 6140 with normal troponin. Initial white is obtainable floor suggestive of a heart rate of 145, blood pressure 94/67 saturated room air 91%. Patient was seen by cardiology who suggested patient has atrial flutter. Will be taken for cardioversion tomorrow. Initiated on Celebrex Patient was initiated on Lasix 80 mg twice a day after a dose of Lasix. Review of Systems Constitutional: Denies chills, Denies fever, Denies lethargy, Denies malaise, Denies poor appetite, Denies weakness, Denies weight loss Eyes: denies decreased vision, denies diplopia, denies discharge, denies pain Ears: deny: decreased hearing Ears, nose, mouth and throat: Denies dental pain, Denies headache, Denies nasal discharge, Denies nose pain Cardiovascular: Denies chest pain, endorses decreased exercise tolerance, Denies edema, Denies high blood pressure, Denies irregular heart beat, Denies palpitations, Denies paroxysmal nocturnal dyspnea, Denies rapid heart beat, endorses shortness of breath Respiratory: Denies congestion, Denies cough, Denies cough with sputum, endorses dyspnea, Denies home oxygen, Denies wheezing Gastrointestinal: Denies abdominal pain, Denies change in bowel habits, Denies coffee ground emesis, Denies early satiety, Denies excessive gas, Denies heartburn, Denies hematemesis, Denies hematochezia, Denies loss of appetite, Denies nausea, Denies vomiting Genitourinary: Denies dysuria, Denies flank pain, Denies kidney stones, Denies menorrhagia, Denies urgency, Denies urinary frequency Musculoskeletal: Denies gait dysfunction, Denies limitation of motion, Denies morning stiffness, Denies muscle cramps Integumentary: Denies rash, Denies wounds, Denies brittle nails, Denies change in hair/nails, Denies darkening of skin Neurological: Denies balance difficulties, Denies change in speech, Denies double vision, Denies gait dysfunction, Denies loss of vision, Denies motor disturbance, Denies numbness, Denies paralysis, Denies paresthesias, Denies seizures Psychiatric: Denies anxiety, Denies depression Endocrine: Denies excessive sweating, Denies excessive thirst, Denies high blood sugars, Denies palpitations Hematologic/Lymphatic: Denies easy bruising, Denies lymphadenopathy Past Medical History Past Medical History: COPD, CVA/TIA, Hypertension History of Any Multi-Drug Resistant Organisms: None Reported Past Surgical History: Back Surgery Additional Past Surgical History / Comment(s): carotid endardectomy Past Psychological History: No Psychological Hx Reported Smoking Status: Current every day smoker Past Alcohol Use History: None Reported Past Drug Use History: None Reported - Past Family History Father Additional Family Medical History / Comment(s): father at the age of 70, sudden unclear etiology Mother Additional Family Medical History / Comment(s): mother of oral age. Patient has no siblings Medications and Allergies Home Medications Medication Instructions Recorded Confirmed Type Finasteride [Proscar] 5 mg PO DAILY 04/09/17 01/25/18 History Saw [place] 160 mg PO HS 07/04/17 01/25/18 History Albuterol Nebulized [Ventolin 2.5 mg INHALATION Q6H PRN 01/25/18 01/25/18 History Nebulized] Aspirin 81 mg PO HS 01/25/18 01/25/18 History Atorvastatin Calcium [Lipitor] 40 mg PO HS 01/25/18 01/25/18 History Montelukast Sodium [Singulair] 10 mg PO HS 01/25/18 01/25/18 History Tamsulosin [Flomax] 0.4 mg PO DAILY 01/25/18 01/25/18 History tiZANidine HCL [tiZANidine HCL] 2 mg PO BID 01/25/18 01/25/18 History traMADol HCl [Ultram] 50 mg PO Q6H PRN 01/25/18 01/25/18 History Allergies Allergy/AdvReac Type Severity Reaction Status Date / Time venom-honey bee Allergy Anaphylaxis Verified 01/25/18 13:50 Physical Exam Vitals: Vital Signs Temp Pulse Pulse Resp BP BP BP 01/26/18 12:00 146 H 106/86 01/26/18 08:00 96.8 F L 146 H 115/93 01/26/18 03:32 98 F 145 H 19 94/67 01/26/18 00:00 98 F 150 H 17 94/53 01/25/18 21:00 98 F 142 H 20 98/76 90/76 01/25/18 20:00 94/60 84/58 01/25/18 18:08 87/63 01/25/18 17:17 98.7 F 141 H 18 100/67 01/25/18 16:00 141 H 18 01/25/18 15:05 96.2 F L 146 H 20 83/64 79/63 01/25/18 15:00 145 H 18 104/75 Pulse Ox 01/26/18 12:00 96 01/26/18 08:00 97 01/26/18 03:32 91 L 01/26/18 00:00 97 01/25/18 21:00 92 L 01/25/18 20:00 01/25/18 18:08 01/25/18 17:17 100 01/25/18 16:00 98 01/25/18 15:05 96 01/25/18 15:00 99 Intake and Output 01/25/18 01/26/18 01/26/18 22:59 06:59 14:59 Intake Total 500 350 240 Output Total 300 600 Balance 500 50 -360 Intake: Intake, IV Titration 500 350 Amount Sodium Chloride 0.9% 1, 350 000 ml @ 50 mls/hr IV . Q20H [facility] Rx#:[id number] Sodium Chloride 0.9% 500 500 ml @ 999 mls/hr IV .Q31M [facility] Rx#:[id number] Oral 240 Output: Urine 300 600 Other: Weight 94.4 kg 93.5 kg - Constitutional General appearance: cooperative, no acute distress, obese - EENT Eyes: anicteric sclerae, PERRLA, normal appearance ENT: hearing grossly normal - Neck Neck: no lymphadenopathy, normal ROM, no other, no rigidity, no stridor, no thyromegaly - Respiratory Respiratory: bilateral: CTA with bibasilar crackles present on examination, negative: diminished, dullnes - Cardiovascular Rhythm: regular Heart sounds: normal: S1, S2 Abnormal Heart Sounds: no systolic murmur, no diastolic murmur, no rub, no S3 Gallop, no S4 Gallop, no click, no other - Gastrointestinal General gastrointestinal: normal bowel sounds, soft - Integumentary Integumentary: no rash - Neurologic Neurologic: CNII-XII intact - Musculoskeletal Musculoskeletal: strength equal bilaterally - Psychiatric Psychiatric: A&O x's 3, appropriate affect Results CBC & Chem 7: 01/25/18 13:00 01/25/18 13:00 Labs: Abnormal Lab Results - Last 24 Hours (Table) 01/26/18 Range/Units 11:44 HDL Cholesterol 31 L (40-60) mg/dL Thrombosis Risk Factor Assmnt - DVT/VTE Prophylaxis DVT/VTE Prophylaxis: Pharmacologic Prophylaxis ordered - Choose All That Apply Any of the Below Risk Factors Present?: Yes Each Factor Represents 1 point: Abnormal pulmonary function (COPD), Heart failure (<1month) Other Risk Factors: Yes Each Risk Factor Represents 2 Points: Age 61-74 years Thrombosis Risk Factor Assessment Total Risk Factor Score: 4 Thrombosis Risk Factor Assessment Level: Moderate Risk Assessment and Plan Plan: 1. Acute CHF systolic . Previous echo was normal, there is reduction in ejection fraction in this admission, though formal report is pending #2 hypotention likely secondary to dehydration and atrial flutter -Blood pressure improved with fluids. #3 New atrial flutter - continue metoprolol 25 3 times a day. Patient will undergo TAMIR with cardioversion tomorrow. Continue eliquis 5 mg twice a day. #4 hypertension-continue home medications including metoprolol. 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 Follows with Dr. Kennedy. Patient also follow Dr. Jones who recommended conservative management #10 GI prophylaxis Pepcid 20 mg po twice a day #11 DVT prophylaxis on eliquis 12 code status full code
--- NOTE | 2018-01-26 15:32 | XR ---
EXAMINATION TYPE: XR chest 2V DATE OF EXAM: 01/26/2018 COMPARISON: 01/25/2018 HISTORY: 72 year-old male shortness of breath TECHNIQUE: AP and lateral views FINDINGS: Heart remains mildly enlarged. Large appearance to the central pulmonary arteries. A small bilateral pleural effusions with a adjacent bibasilar densities. Visualized upper lungs are relatively clear. IMPRESSION: 1. Stable mild cardiomegaly and small pleural effusions with adjacent atelectasis and/or consolidatio n. Correlate for CHF as an etiology. No significant change. 2. There may be underlying pulmonary arterial hypertension.
--- NOTE | 2018-01-26 16:58 | ECHOF ---
Referral Reason:CHF MEASUREMENTS -------- HEIGHT: 172.7 cm WEIGHT: 93.4 kg BP: 94/67 RVIDd: 3.8 cm (< 3.3) IVSd: 1.6 cm (0.6 - 1.1) LVIDd: 4.9 cm (3.9 - 5.3) LVPWd: 1.5 cm (0.6 - 1.1) IVSs: 1.7 cm LVIDs: 4.8 cm LVPWs: 1.8 cm LA Diam: 4.7 cm (2.7 - 3.8) LAESV Index (A-L): 59.84 ml/m Ao Diam: 3.8 cm (2.0 - 3.7) AV Cusp: 2.1 cm (1.5 - 2.6) MV EXCURSION: 16.790 mm (> 18.000) MV EF SLOPE: 218 mm/s (70 - 150) EPSS: 1.6 cm RAP: 5.00 mmHg RVSP: 40.13 mmHg FINDINGS -------- Atrial fibrillation. This was a technically adequate study. The left ventricular size is normal. There is moderate concentric left ventricular hypertrophy. O verall left ventricular systolic function is severely impaired with, an EF < 20%. The right ventricle is mild to moderately enlarged. LA is severely dilated >40 ml/m2 The right atrium is normal in size. There is mild aortic valve sclerosis. Mild mitral annular calcification present. Mild mitral regurgitation is present. Mild tricuspid regurgitation present. There is mild pulmonary hypertension. The right ventricular systolic pressure, as measured by Doppler, is 40.13mmHg. The pulmonic valve was not well visualized. The aortic root is dilated measuring 3.8cm. Normal inferior vena cava with normal inspiratory collapse consistent with estimated right atrial pre ssure of 5 mmHg. There is a moderate, generalized pericardial effusion present. Pleural Effusion with Fibrin. CONCLUSIONS -------- 1. Atrial fibrillation. 2. This was a technically adequate study. 3. The left ventricular size is normal. 4. There is moderate concentric left ventricular hypertrophy. 5. Overall left ventricular systolic function is severely impaired with, an EF < 20%. 6. The right ventricle is mild to moderately enlarged. 7. LA is severely dilated >40 ml/m2 8. The right atrium is normal in size. 9. There is mild aortic valve sclerosis. 10. Mild mitral annular calcification present. 11. Mild mitral regurgitation is present. 12. Mild tricuspid regurgitation present. 13. There is mild pulmonary hypertension. 14. The right ventricular systolic pressure, as measured by Doppler, is 40.13mmHg. 15. The pulmonic valve was not well visualized. 16. The aortic root is dilated measuring 3.8cm. 17. Normal inferior vena cava with normal inspiratory collapse consistent with estimated right atrial pressure of 5 mmHg. 18. There is a moderate, generalized pericardial effusion present. 19. Pleural Effusion with Fibrin. SENIOR SALES CONSULTANT: Maren Mccracken RDCS
[2018-01-26] MEDS: NICOTINE 21MG/24HR PATCH TRANSDERM SCH (17:13)
[2018-01-26] MEDS: FUROSEMIDE 80 MG TAB PO SCH (17:13)
[2018-01-26] MEDS: SODIUM CHLORIDE 0.9% 1,000 ML IV SCH (19:10)
[2018-01-26] MEDS: ATORVASTATIN 40 MG TAB PO SCH (19:42)
[2018-01-26] MEDS: MONTELUKAST 10 MG TAB PO SCH (19:42)
[2018-01-26] MEDS ORDERED: ASPIRIN 81 MG PO SCH (21:00)
[2018-01-27 06:24] LABS: Basophils % (A) 1 %; Eosinophils # (A) 0.1 k/uL (0-0.7); Eosinophils % (A) 1 %; HCT 41.4 % (39.0-53.0); Hypochromasia Moderate; Lymphocytes # (A) 1.3 k/uL (1.0-4.8); Lymphocytes % (A) 14 %; MCH 27.1 pg (25.0-35.0); MCHC 31.4 g/dL (31.0-37.0); MCV 86.2 fL (80.0-100.0); Mean Platelet Volume 9.6; Monocytes # (A) 0.7 k/uL (0-1.0); Monocytes % (A) 8 %; Neutrophils # (A) 6.7 k/uL (1.3-7.7); Neutrophils % (A) 74 %; Platelet Count 237 k/uL (150-450); Poikilocytosis Slight; RBC 4.81 m/uL (4.30-5.90); RDW 14.4 % (11.5-15.5)
[2018-01-27 06:29] LABS: Albumin 3.4 g/dL (3.5-5.0); Calcium 8.5 mg/dL (8.4-10.2); Total Bilirubin 0.7 mg/dL (0.2-1.3)
[2018-01-27] MEDS ORDERED: LORazepam 2 MG/ML INJ IV STA (07:10)
--- NOTE | 2018-01-27 09:02 | CONS ---
CONSULTATION This is a 72-year-old gentleman with past medical history significant for hypertension, recent CVA in the summer of last year, history of prior back surgery, nicotine dependence, prior carotid endarterectomy, who presents to the hospital with symptoms of progressively worsening shortness of breath. He states that the symptoms actually started around December of this year. He denied any dizziness or presyncope, no chest discomfort, no lower extremity edema. EKG reveals atrial flutter with a rapid ventricular response. Please chest x-ray showed mild cardiomegaly with a small pleural effusion and possible consolidation. Mild congestive heart failure exacerbation. Blood pressure 115/90 with a heart rate in the 130s to 140s range, afebrile. White blood cell count 8.4, hemoglobin 12.9, platelet count 171. Sodium 131, potassium 4.5, BUN 18, creatinine 1.0. BNP level 6140. Troponin 0.031, 0.030, 0.028. TSH level is normal. This patient was started on apixaban 5 mg 1 tablet p.o. b.i.d. by us today. He is also on a full aspirin, which we will decrease to 81 mg today. We will replace this. We also started the patient on metoprolol 25 mg 1 tablet p.o. t.i.d., he was given some Lanoxin in the emergency room, he is also on Lipitor 40 mg daily, Proscar 5 mg daily, Singulair 10 mg at HS, nicotine patch. REVIEW OF SYSTEMS: Constitutional, denies fever or chills, denies any weakness or recent weight loss. CARDIAC: As above. RESPIRATORY: As above. GI as above. Genitourinary as above. PAST MEDICAL HISTORY: Significant for prior CVA, hypertension, prior back surgery and prior carotid endarterectomy. SOCIAL HISTORY: Patient is a current every day smoker. Past alcohol use, none. FAMILY MEDICAL HISTORY: Father at the age of 77. Mother of old age. MEDICATIONS: As previously listed. ALLERGIES: BEE VENOM. PHYSICAL EXAMINATION: Blood pressure 116/90, heart rate in the 130s to 140s range, afebrile, 94% on room air. Physical examination HEENT: Normal, neck mild elevated jugular venous pressure. RESPIRATORY: Lungs reveal diminished air entry at bilateral bases with fine rales to the bases. Cardiovascular heart S1, S2. Irregularly irregular. No audible murmur is heard. Gastrointestinal: Abdomen is soft, bowel sounds are heard. Extremities, mild peripheral edema, 2+ bilateral peripheral pulses. LAB DATA: As mentioned above. ASSESSMENT AND PLAN: 1. Atrial flutter with a rapid ventricular response, we will continue the addition of metoprolol as well as Eliquis for anticoagulation. The patient will be scheduled tomorrow to undergo a transesophageal echocardiographic study as well as subsequent cardioversion. The risks and benefits were explained to the patient in detail. 2. Hypertension. 3. History of stroke. 4. Nicotine dependence. PLAN: Patient did have an echocardiogram with Doppler study performed in September, which revealed an ejection fraction at that time of 50-55%. We will review his echocardiogram with Doppler study here. Further recommendations will be based on how the patient progresses. Thank you for the consultation. I performed a History & Physical Examination of the patient and discussed their management with nurse practitioner. I reviewed the nurse practitioner's note and agree with the documented findings and plan of care. MMODL / IJN: [id number] /
--- NOTE | 2018-01-27 09:06 | CT ---
EXAMINATION TYPE: CT brain wo con DATE OF EXAM: 01/27/2018 COMPARISON: NONE INDICATION: Confusion DLP: 1248 mGycm, Automated exposure control for dose reduction was used. CONTRAST: None CT of the brain is performed utilizing 3 mm thick sections through the posterior fossa and 3 mm thick sections through the remaining calvarium. Study is performed within 24 hours of arrival to the hosp ital. No abnormal hyperdensity is present to suggest an acute intracranial hemorrhage. No mass lesion is evident. No acute infarcts are evident. There is confluent periventricular white matter hypodensity, likely on the basis of chronic white matter ischemic changes. This extends into the right watershed region. Fi ndings appear more evident although present from the 2017 comparison. Ventricles and sulci are somewhat prominent for the patient age. There is a patent cavum septum tory ucida and cavum vergae, normal variants. Mucosal thickenings within the left maxillary sinus. Air-fluid levels present. Correlate for acute le ft maxillary sinusitis. Remaining paranasal sinuses and mastoid air cells are clear. IMPRESSIONS: 1. Appear to be progressive but chronic white matter ischemic changes present. 2. Hypodensity extending into the right watershed region likely is an old watershed infarct. 3. Acute intracranial changes not identified. 4. Clinical correlation recommended for acute left maxillary sinusitis.
[2018-01-27] MEDS ORDERED: LACTATED RINGERS 1,000 ML IV ONE (09:43)
[2018-01-27] MEDS ORDERED: ETOMIDATE 2 MG/ML 10 ML VIAL ONE (10:00)
[2018-01-27] MEDS ORDERED: BENZOCAINE SPRAY 1 CAN MUCOUS MEM ONE (10:00)
[2018-01-27] MEDS ORDERED: LIDOCAINE 1% INJ 10MG/ML (20 ML MDV) ONE (10:00)
[2018-01-27] MEDS ORDERED: MIDAZOLAM 2 MG/2 ML VIAL ONE (10:00)
[2018-01-27] MEDS ORDERED: ENOXAPARIN 80 MG/0.8 ML SYRINGE SQ STA (10:12)
[2018-01-27] MEDS ORDERED: DEXTROSE 5% IN WATER 250 ML with AMIODARONE 300 MG IV ONE (10:25)
--- NOTE | 2018-01-27 10:27 | P.PCN ---
Preoperative Diagnosis: Procedure note Electrical cardioversion Indication for procedure Atrial flutter with RVR Symptomatic Drug refractory Procedure details Successful electrical cardioversion with a 360 J biphasic shock to sinus rhythm Plan Patient did not receive ELIQUIS this morning Will give 1 dose of Lovenox 80 mg Continue ELIQUIS 5 g twice daily Patient has severe cardio myopathy on TAMIR
[2018-01-27] MEDS: SODIUM CHLORIDE 0.9% 1,000 ML IV SCH ×2 (11:05→12:16)
--- NOTE | 2018-01-27 11:05 | ECHOT ---
TRANSESOPHAGEAL ECHOCARDIOGRAM This transesophageal echocardiogram was performed to rule out any cardiac thrombi prior to the cardioversion. Patient was given intravenous sedation with Versed by nurse barrel turner and the transesophageal echocardiogram was performed without any complications. Left ventricular chamber is mildly dilated with severe degree of global hypokinesia with ejection fraction of less than 30%. Left atrium is moderately enlarged. The posterior leaflet is thickened and its motion is restricted. There is a moderate degree of mitral regurgitation, mild to moderate degree of tricuspid regurgitation and mild degree of aortic regurgitation. The left atrial appendage is clear. There is no evidence of any thrombus in left atrial appendage or left atrium. Interatrial septum is intact. There is no evidence of any right to left shunt by saline contrast study. FINAL IMPRESSION: There is no evidence of any thrombus in left atrial appendage or the left atrium. Left ventricle cavity is dilated with severely impaired left ventricular systolic function. The posterior mitral leaflet is thickened and its motion is restricted. There is evidence of moderate degree of mitral regurgitation. There is a mild degree of tricuspid regurgitation. Interatrial septum is intact. There is no evidence of any patent foramen ovale. MMODL / IJN: [id number] /
--- NOTE | 2018-01-27 11:57 | P.PN ---
Subjective this is a 72 years old male with past medical history of hypertension , recent stroke 3 months ago patient of Dr. Metz care of guardian Etelvina last admitted in September for acute gastroenteritis comes in with shortness of breath that has been getting worse for the past few weeks. He denies any nausea or vomiting, lightheadedness or dizziness, no chest pain. chest x-ray done in the ER suggestive of mild CHF, labs were positive for a BNP of 6140 with normal troponin. Initial white is obtainable floor suggestive of a heart rate of 145, blood pressure 94/67 saturated room air 91%. Patient was seen by cardiology who suggested patient has atrial flutter. Will be taken for cardioversion tomorrow. Initiated on Celebrex Patient was initiated on Lasix 80 mg twice a day after a dose of Lasix. 01/27 Patient was noted to have some confusion last night, head CT ordered shows chronic white matter ischemic changes, old watershed infarct, and no acute intracranial changes. Today confusion has improved. Hypotension has improved, blood pressure 105/84 patient underwent TAMIR and cardioversion today. He had successful electrical cardioversion to sinus rhythm, patient noted to have severe cardiomyopathy on TAMIR. TAMIR shows left ventricular cavity is dilated with severe impaired left ventricular systolic function, moderate degree of mitral regurgitation, mild degree of tricuspid regurgitation. Echocardiogram reveals ejection fraction less than 20%, moderate left ventricular hypertrophy, LA is severely dialted, and moderate pericaridal effusion. Objective - Vital Signs Vital signs: Vital Signs Temp 97.6 F 01/27/18 08:00 Pulse 150 H 01/27/18 08:00 Resp 19 01/27/18 03:27 BP 105/84 01/27/18 08:00 Pulse Ox 94 L 01/27/18 08:00 Intake & Output 01/26/18 01/27/18 01/27/18 18:59 06:59 18:59 Intake Total 720 0 Output Total 1275 1450 Balance -555 -1450 0 Weight 90.8 kg Intake: Oral 720 0 Output: Urine 1275 1450 Straight 600 Other: # Voids 125 - Exam - Constitutional General appearance: cooperative, no acute distress, obese - EENT Eyes: anicteric sclerae, PERRLA, normal appearance ENT: hearing grossly normal - Neck Neck: no lymphadenopathy, normal ROM, no other, no rigidity, no stridor, no thyromegaly - Respiratory Respiratory: bilateral: CTA with bibasilar crackles present on examination, negative: diminished, dullnes - Cardiovascular Rhythm: regular Heart sounds: normal: S1, S2 Abnormal Heart Sounds: no systolic murmur, no diastolic murmur, no rub, no S3 Gallop, no S4 Gallop, no click, no other - Gastrointestinal General gastrointestinal: normal bowel sounds, soft - Integumentary Integumentary: no rash - Neurologic Neurologic: CNII-XII intact - Musculoskeletal Musculoskeletal: strength equal bilaterally - Psychiatric Psychiatric: A&O x's 3, appropriate affect - Labs CBC & Chem 7: 01/27/18 06:03 01/27/18 06:03 Labs: Abnormal Lab Results - Last 24 Hours (Table) 01/26/18 01/27/18 Range/Units 11:44 06:03 Sodium 134 L (137-145) mmol/L Chloride 94 L (98-107) mmol/L BUN 21 H (9-20) mg/dL Glucose 113 H (74-99) mg/dL ALT 120 H (21-72) U/L Total Protein 6.0 L (6.3-8.2) g/dL Albumin 3.4 L (3.5-5.0) g/dL HDL Cholesterol 31 L (40-60) mg/dL Assessment and Plan Plan: #1 Acute CHF systolic. Previous echo was normal, there is reduction in ejection fraction in this admission with an EF <20%. TAMIR shows severe cardiomyopathy #2 hypotention likely secondary to dehydration and atrial flutter, blood pressure has improved with fluids. #3 New atrial flutter - continue metoprolol 25 3 times a day. Patient underwent cardioversion to sinus rhythm. Continue eliquis 5 mg twice a day. #4 hypertension-continue home medications including metoprolol. 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 Follows with Dr. Kennedy. Patient also follow Dr. Jones who recommended conservative management #10 GI prophylaxis Pepcid 20 mg po twice a day #11 DVT prophylaxis on eliquis #12 code status full code The above impression and plan of care have been discussed and directed by signing physician. Jocelyne Khan nurse practitioner acting as scribe for signing physician.
[2018-01-27] MEDS: traMADol 50 MG TAB PO PRN (12:13)
[2018-01-27] MEDS: METOPROLOL TARTRATE 25 MG TAB PO SCH ×3 (12:14→22:25)
[2018-01-27] MEDS: FAMOTIDINE 20 MG TAB PO SCH ×2 (12:15→22:24)
[2018-01-27] MEDS: FUROSEMIDE 80 MG TAB PO SCH ×2 (12:15→17:34)
[2018-01-27] MEDS: ASPIRIN 81 MG PO SCH (12:15)
[2018-01-27] MEDS: APIXABAN 5 MG TAB PO SCH ×2 (12:15→22:24)
[2018-01-27] MEDS: TAMSULOSIN 0.4 MG CAP.ER.24H PO SCH (12:15)
[2018-01-27] MEDS: FINASTERIDE 5 MG TAB PO SCH (12:15)
[2018-01-27] MEDS: NICOTINE 21MG/24HR PATCH TRANSDERM SCH (12:15)
--- NOTE | 2018-01-27 20:46 | P.CNNES ---
History of Present Illness Consult date: 01/27/18 History of Present Illness: The patient is a 72-year-old left-handed white male with multiple medical problems as been sick recently with gastroenteritis and respiratory distress for the past several weeks. He was admitted to the hospital with mild CHF also be presented to the hospital on January 25 and was seen by cardiology for atrial flutter. Neurology is requested to see the patient regarding altered mental status. Next Patient admits to being confused ever since he's had shortness of breath for the last several weeks. The patient denies any new weakness numbness or dizziness or visual disturbance. She does have poor eyesight. He denies falling. He states he does live alone. He states his girlfriend asked him to come to the hospital on January 25. The patient has other medical conditions including hypertension depression history of stroke and vertebral stenosis Review of Systems Constitutional: Denies chills, Denies fever Eyes: denies blurred vision, denies pain Cardiovascular: Denies chest pain, Denies shortness of breath Respiratory: Denies cough Musculoskeletal: Denies myalgias Neurological: Denies numbness, Denies weakness Past Medical History Past Medical History: COPD, CVA/TIA, Hypertension History of Any Multi-Drug Resistant Organisms: None Reported Past Surgical History: Back Surgery Additional Past Surgical History / Comment(s): carotid endardectomy Past Psychological History: No Psychological Hx Reported Smoking Status: Current every day smoker Past Alcohol Use History: None Reported Past Drug Use History: None Reported - Past Family History Father Additional Family Medical History / Comment(s): father at the age of 70, sudden unclear etiology Mother Additional Family Medical History / Comment(s): mother of oral age. Patient has no siblings Medications and Allergies Home Medications Medication Instructions Recorded Confirmed Type Finasteride [Proscar] 5 mg PO DAILY 04/09/17 01/25/18 History Saw [place] 160 mg PO HS 07/04/17 01/25/18 History Albuterol Nebulized [Ventolin 2.5 mg INHALATION Q6H PRN 01/25/18 01/25/18 History Nebulized] Aspirin 81 mg PO HS 01/25/18 01/25/18 History Atorvastatin Calcium [Lipitor] 40 mg PO HS 01/25/18 01/25/18 History Montelukast Sodium [Singulair] 10 mg PO HS 01/25/18 01/25/18 History Tamsulosin [Flomax] 0.4 mg PO DAILY 01/25/18 01/25/18 History tiZANidine HCL [tiZANidine HCL] 2 mg PO BID 01/25/18 01/25/18 History traMADol HCl [Ultram] 50 mg PO Q6H PRN 01/25/18 01/25/18 History Allergies Allergy/AdvReac Type Severity Reaction Status Date / Time venom-honey bee Allergy Anaphylaxis Verified 01/25/18 13:50 Physical Examination - Vital Signs Vital Signs: Vital Signs Temp Pulse Resp BP BP Pulse Ox 01/27/18 16:00 71 90/42 96 01/27/18 12:00 79 117/48 95 01/27/18 11:30 80 01/27/18 11:15 76 133/72 97 01/27/18 11:00 78 146/111 99 01/27/18 10:38 97 16 150/84 95 01/27/18 10:27 92 16 160/57 94 L 01/27/18 10:15 91 20 117/58 93 L 01/27/18 09:42 152 H 20 122/95 98 01/27/18 08:00 97.6 F 150 H 105/84 94 L 01/27/18 03:27 98 F 145 H 19 94/67 92 L 01/27/18 00:00 149 H 17 144/65 92 L Intake and Output 01/27/18 01/27/18 01/27/18 06:59 14:59 22:59 Intake Total 390 480 Output Total 600 600 Balance -600 -210 480 Intake: IV 150 Oral 240 480 Output: Urine 600 600 Straight 600 Other: # Voids 125 2 Weight 90.8 kg - Constitutional General appearance: average body habitus - EENT EENT: PERRL, hearing aids present - Respiratory Respiratory: crackles, rales - Cardiovascular Cardiovascular: regular rate - Integumentary Integumentary: normal - Neurologic Mental status he was awake he was alert he was oriented to person year and month he was able to give his date he was able to name the president he was able to give his phone number and his address he was able to do simple calculations he was able to spell world forward and backward there is no a aphasia or dysarthria patient was very hard of hearing. He was somewhat anxious and had some respiratory difficulty Cranial nerve examination: PERRL, EOMI, VFF, face symmetric, tongue midline Speech examination: intact Detailed motor examination: other Detailed sensory examination: intact - Psychiatric Psychiatric: depressed Results - Laboratory Findings CBC and BMP: 01/27/18 06:03 01/27/18 06:03 Abnormal Lab Findings: Abnormal Labs 01/25/18 01/25/18 01/25/18 13:00 13:00 13:00 Hgb 12.9 L PT 13.3 H INR 1.4 H Sodium 131 L Chloride 94 L BUN Glucose 121 H ALT 109 H Total Protein 6.2 L Albumin HDL Cholesterol 01/26/18 01/27/18 11:44 06:03 Hgb PT INR Sodium 134 L Chloride 94 L BUN 21 H Glucose 113 H ALT 120 H Total Protein 6.0 L Albumin 3.4 L HDL Cholesterol 31 L Assessment and Plan (1) Altered mental status Current Visit: Yes Status: Acute SNOMED Code(s): 129298709 (2) Congestive heart failure Current Visit: Yes Status: Acute SNOMED Code(s): 13089284 (3) History of stroke Current Visit: Yes Status: Acute SNOMED Code(s): 276852327 Plan: The patient is a 73-year-old man with mild confusion. He has multiple medical problems including congestive heart failure, hypertension, dehydration and atrial flutter. Patient has some degree of intermittent confusion. He had a CT of the brain today which showed chronic white matter ischemic changes and old right watershed infarct. Patient's mild encephalopathy likely due to secondary to multiple medical conditions at this time. Will check EEG and carotid ultrasound.
[2018-01-27] MEDS: ATORVASTATIN 40 MG TAB PO SCH (22:24)
[2018-01-27] MEDS: MONTELUKAST 10 MG TAB PO SCH (22:24)
[2018-01-28] MEDS: ALPRAZolam 0.25 MG TAB PO PRN ×2 (01:32→12:18)
[2018-01-28 06:47] LABS: Albumin 3.2 g/dL (3.5-5.0); Calcium 8.5 mg/dL (8.4-10.2); Potassium 4.2 mmol/L (3.5-5.1); Total Bilirubin 0.7 mg/dL (0.2-1.3); Total Protein 5.5 g/dL (6.3-8.2)
--- NOTE | 2018-01-28 08:35 | US ---
EXAMINATION TYPE: US carotid duplex BILAT DATE OF EXAM: 01/28/2018 COMPARISON: CT angiogram neck dated 08/26/2017 CLINICAL HISTORY: Altered mental status. EXAM MEASUREMENTS: RIGHT: Peak Systolic Velocity (PSV) cm/sec ----- Right CCA: occluded ----- Right ICA: occluded ----- Right ECA: occluded ICA/CCA ratio: -- RIGHT: End Diastole cm/sec ----- Right CCA: occluded ----- Right ICA: occluded ----- Right ECA: occluded LEFT: Peak Systolic Velocity (PSV) cm/sec ----- Left CCA: 61.4 ----- Left ICA: 92.5 ----- Left ECA: 46.3 ICA/CCA ratio: 1.5 LEFT: End Diastole cm/sec ----- Left CCA: 17.5 ----- Left ICA: 28.4 ----- Left ECA: 0.0 VERTEBRALS (direction of flow): Right Vertebral: Retrograde Left Vertebral: Antegrade Rhythm: Normal Right side entirely occluded, no flow in CCA, ECA, or ICA, retrograde flow in vertebral on right. Left side shows mild atherosclerotic plaque with no significant velocity increases. IMPRESSION: 1. Complete occlusion of the right common carotid artery, external carotid artery or internal carotid artery as visualized with retrograde flow in the right vertebral artery likely representing subclavi an steal giving the findings on the CT angiogram neck dated 08/26/2017. 2. Mild lewis scale atheromatous plaquing with no hemodynamically significant stenosis on the left. A Yellow level critical message alert has been initiated for Michelle Hay via the [employer] Critical Results System on 01/28/2018 8:33 AM. This message alert has been sent to Michelle Hay via t he preferences provided by the clinician for the receipt of Radiology Critical Findings. Message ID [id number].
[2018-01-28] MEDS: traMADol 50 MG TAB PO PRN (09:34)
[2018-01-28] MEDS: FUROSEMIDE 80 MG TAB PO SCH (09:35)
[2018-01-28] MEDS: NICOTINE 21MG/24HR PATCH TRANSDERM SCH (09:35)
[2018-01-28] MEDS: FAMOTIDINE 20 MG TAB PO SCH (09:36)
[2018-01-28] MEDS: APIXABAN 5 MG TAB PO SCH ×2 (09:36→21:35)
[2018-01-28] MEDS: METOPROLOL TARTRATE 25 MG TAB PO SCH (09:36)
[2018-01-28] MEDS: FINASTERIDE 5 MG TAB PO SCH (09:37)
[2018-01-28] MEDS: TAMSULOSIN 0.4 MG CAP.ER.24H PO SCH (09:37)
[2018-01-28] MEDS: ASPIRIN 81 MG PO SCH (09:37)
[2018-01-28 10:54] LABS: Basophils # (A) 0.1 k/uL (0-0.2); Basophils % (A) 1 %; Eosinophils # (A) 0.1 k/uL (0-0.7); Eosinophils % (A) 1 %; HCT 41.9 % (39.0-53.0); HGB 13.5 gm/dL (13.0-17.5); Hypochromasia Moderate; Lymphocytes # (A) 1.3 k/uL (1.0-4.8); Lymphocytes % (A) 17 %; MCHC 32.4 g/dL (31.0-37.0); MCV 86.5 fL (80.0-100.0); Monocytes # (A) 1.1 k/uL (0-1.0); Monocytes % (A) 14 %; Neutrophils # (A) 5.4 k/uL (1.3-7.7); Neutrophils % (A) 66 %; Platelet Count 143 k/uL (150-450); Poikilocytosis Slight; RBC 4.84 m/uL (4.30-5.90); RDW 14.5 % (11.5-15.5); WBC 8.1 k/uL (3.8-10.6)
[2018-01-28] MEDS ORDERED: SODIUM CHLORIDE 0.9% 500 ML IV ONE (12:15)
--- NOTE | 2018-01-28 12:29 | P.PN ---
Subjective Patient is resting in bed. His blood pressure is in the 80s and 90s. His tongue is moist BUN and creatinine have increased since baseline. 2-D echo reviewed and shows severely dysfunction there is sarm-sz-zrhluzts pericardial effusion with fibrinous material is decreased anteriorly consistent with an old pericardial effusion On examination there is no JVD He is alert and oriented and is speaking to me Denies chest discomfort He does have a cough with expectoration Urine is dark and slightly pink tinged Heart sounds S1 and S2 are soft breath sounds are reduced bilaterally no rhonchi Abdomen soft nontender Mild lower extremity edema but skin is warm Impression Severe cardio myopathy Mild to moderate pericardial effusion likely old Possible viral pericarditis in the past Atrial flutter with RVR status post electrical cardioversion, no intracardiac mass or thrombus Rising BUN and creatinine Patient was treated with IV Lasix when he came in for heart failure Suggest He maintains sinus rhythm at this time, continue ELIQUIS for stroke prophylaxis Reduce metoprolol to 12.5 mg twice daily and hold for blood pressure less than 100 mmHg History he received 300 mg of IV amiodarone Today I will start 200 mg by mouth daily, amiodarone Objective - Vital Signs Vital signs: Vital Signs Temp 97 F L 01/28/18 04:00 Pulse 69 01/28/18 04:00 Resp 18 01/28/18 04:00 BP 88/65 01/28/18 04:00 Pulse Ox 96 01/28/18 04:00 Intake & Output 01/27/18 01/28/18 01/28/18 18:59 06:59 18:59 Intake Total 870 236 Output Total 600 1385 Balance 270 -1385 236 Weight 85.5 kg Intake: IV 150 Oral 720 236 Output: Urine 600 1385 Straight 810 Other: Voiding Method Urinal # Voids 2 1 - Labs CBC & Chem 7: 01/28/18 09:57 01/28/18 05:53 Labs: Abnormal Lab Results - Last 24 Hours (Table) 01/28/18 01/28/18 Range/Units 05:53 09:57 Plt Count 143 L (150-450) k/uL Monocytes # 1.1 H (0-1.0) k/uL Sodium 130 L (137-145) mmol/L Chloride 92 L (98-107) mmol/L BUN 29 H (9-20) mg/dL Creatinine 1.50 H (0.66-1.25) mg/dL AST 393 H (17-59) U/L ALT 512 H (21-72) U/L Total Protein 5.5 L (6.3-8.2) g/dL Albumin 3.2 L (3.5-5.0) g/dL
[2018-01-28] MEDS: SODIUM CHLORIDE 0.9% 1,000 ML IV SCH ×2 (12:41)
[2018-01-28] MEDS: guaiFENesin 600 MG TABLET.ER PO SCH ×2 (13:54→21:35)
[2018-01-28] MEDS: AMIODARONE 200 MG TAB PO SCH ×2 (13:54→15:03)
--- NOTE | 2018-01-28 14:22 | CDI ---
Last Revision, October 2017 Documentation Clarification Form Date: 01/28/2018 From: Iona Mantilla RN, CCDS Admit Date: 01/26/2018 11:34:00 AM Patient Name: Nathan Allen Visit Number: [id number] Discharge Date: ATTENTION: The Clinical Documentation Specialists (CDI) and [facility] Coding Staff appreciate your assistance in clarifying documentation. Please respond to the clarification below the line at the bottom and electronically sign. The CDI & [facility] Coding staff will review the response and follow-up if needed. Please note: Queries are made part of the Legal Health Record. If you have any questions, please contact the author of this message via ITS. Dr. Pedro Sneed Severe Cardiomyopathy is documented in your procedure and progress notes on History/Risk Factors: COPD, CVA/TIA, hypertension, Current every day smoker Clinical indicators: Present with shortness of breath that has been getting worse for the past few weeks. BNP of 6140, with normal troponin. Chest x-ray; suggestive of mild CHF 01/26/18 Echocardiogram: Atrial fibrillation. Left ventricular systolic function is severely impaired with, an EF<20 % the right ventricle is mild to moderately enlarged. LA is severely dilated>40 ml /m2 there is mild pulmonary hypertension. TAMIR: Left ventricle cavity is dilated with severely impaired left ventricular systolic function. The posterior mitral leaflet is thickened and its motion is restricted. There is evidence of moderate degree of mitral regurgitation. There is mild degree of tricuspid regurgitation. Treatment: Cordarone Po Eliquis PO Lipitor PO Lopressor Po Lasix IV ( now DC) In your professional opinion, can you please clarify the type of cardiomyopathy and underlying cause if known Congenital Dilated Hypertrophic Ischemic Secondary, please indicate underlying cause if known Other, please specify Unable to determine Please continue to document in your progress notes and discharge summary in order to capture severity of illness and risk of mortality. Include clinical findings that support your diagnosis. Dr. Sigala's response Unable to determine the etiology of LV dysfunction at this time. "Other" MTDD
--- NOTE | 2018-01-28 14:50 | P.PN ---
Subjective Progress Note Date: 01/28/18 this is a 72 years old male with past medical history of hypertension , recent stroke 3 months ago patient of Dr. Metz care of guardian Etelvina last admitted in September for acute gastroenteritis comes in with shortness of breath that has been getting worse for the past few weeks. He denies any nausea or vomiting, lightheadedness or dizziness, no chest pain. chest x-ray done in the ER suggestive of mild CHF, labs were positive for a BNP of 6140 with normal troponin. Initial white is obtainable floor suggestive of a heart rate of 145, blood pressure 94/67 saturated room air 91%. Patient was seen by cardiology who suggested patient has atrial flutter. Will be taken for cardioversion tomorrow. Initiated on Celebrex Patient was initiated on Lasix 80 mg twice a day after a dose of Lasix. 01/27 Patient was noted to have some confusion last night, head CT ordered shows chronic white matter ischemic changes, old watershed infarct, and no acute intracranial changes. Today confusion has improved. Hypotension has improved, blood pressure 105/84 patient underwent TAMIR and cardioversion today. He had successful electrical cardioversion to sinus rhythm, patient noted to have severe cardiomyopathy on TAMIR. TAMIR shows left ventricular cavity is dilated with severe impaired left ventricular systolic function, moderate degree of mitral regurgitation, mild degree of tricuspid regurgitation. Echocardiogram reveals ejection fraction less than 20%, moderate left ventricular hypertrophy, LA is severely dialted, and moderate pericaridal effusion. 01/28 blood pressure on the lower side today. Patient is more confused than yesterday likely secondary to delirium. He does answer questions appropriately once disoriented. Pending for today. Neurology consulted. Patient has significant occlusion of the right common carotid artery external carotid artery and internal carotid artery with retrograde flow in the right vertebral artery representing subclavian steal syndrome. He has seen vascular surgery in the past who has recommended conservative management for the above. Metoprolol dose reduced to 12.5 mg twice daily. Amiodarone initiated at 200 mg daily Lasix held as patient has low blood pressure. Pericardial effusion documented on echocardiogram appears to be chronic secondary to viral infection. Objective - Vital Signs Vital signs: Vital Signs Temp 96.8 F L 01/28/18 09:25 Pulse 77 01/28/18 09:25 Resp 18 01/28/18 09:25 BP 101/73 01/28/18 09:25 Pulse Ox 100 01/28/18 09:25 Intake & Output 01/27/18 01/28/18 01/28/18 18:59 06:59 18:59 Intake Total 870 554 Output Total 600 1385 Balance 270 -1385 554 Weight 85.5 kg 85.5 kg Intake: IV 150 Oral 720 554 Output: Urine 600 1385 Straight 810 Other: Voiding Method Urinal Indwelling Catheter # Voids 2 1 - Exam - Constitutional General appearance: cooperative, no acute distress, obese - EENT Eyes: anicteric sclerae, PERRLA, normal appearance ENT: hearing grossly normal - Neck Neck: no lymphadenopathy, normal ROM, no other, no rigidity, no stridor, no thyromegaly - Respiratory Respiratory: bilateral: CTA with bibasilar crackles present on examination, negative: diminished, dullnes - Cardiovascular Rhythm: regular Heart sounds: normal: S1, S2 Abnormal Heart Sounds: no systolic murmur, no diastolic murmur, no rub, no S3 Gallop, no S4 Gallop, no click, no other - Gastrointestinal General gastrointestinal: normal bowel sounds, soft - Integumentary Integumentary: no rash - Neurologic Neurologic: CNII-XII intact - Musculoskeletal Musculoskeletal: strength equal bilaterally - Psychiatric Psychiatric: A&O x's 1, appropriate affect - Labs CBC & Chem 7: 01/28/18 09:57 01/28/18 05:53 Labs: Abnormal Lab Results - Last 24 Hours (Table) 01/28/18 01/28/18 Range/Units 05:53 09:57 Plt Count 143 L (150-450) k/uL Monocytes # 1.1 H (0-1.0) k/uL Sodium 130 L (137-145) mmol/L Chloride 92 L (98-107) mmol/L BUN 29 H (9-20) mg/dL Creatinine 1.50 H (0.66-1.25) mg/dL AST 393 H (17-59) U/L ALT 512 H (21-72) U/L Total Protein 5.5 L (6.3-8.2) g/dL Albumin 3.2 L (3.5-5.0) g/dL Assessment and Plan Plan: #1 Acute CHF systolic. Previous echo was normal, there is reduction in ejection fraction in this admission with an EF <20%. TAMIR shows severe cardiomyopathy with moderate pericardial effusion which is likely chronic. Lasix held as patient appears to be over diuresed. Urine output reduced. 500 bolus given #2 hypotention likely secondary to dehydration and atrial flutter, blood pressure has improved with fluids. 500 bolus given today. Lasix is held metoprolol dose reduced to 12.5 mg twice a day #3 New atrial flutter s/p cardioversion - continue metoprolol 12.5 mg PO BID Patient underwent cardioversion to sinus rhythm. Continue eliquis 5 mg twice a day. #4 hypertension-continue home medications including metoprolol. 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 Follows with Dr. Kennedy. Patient also follow Dr. Jones who recommended conservative management #10 GI prophylaxis Pepcid 20 mg po twice a day #11 DVT prophylaxis on eliquis #12 code status full code # 13 change in mental status likely secondary to delirium. CT head negative for any acute abnormality. EEG pending
[2018-01-28] MEDS ORDERED: FUROSEMIDE 20 MG TAB PO SCH (16:00)
[2018-01-28] MEDS ORDERED: METOPROLOL TARTRATE 12.5 MG TAB PO SCH (16:00)
--- NOTE | 2018-01-28 20:57 | P.PN ---
Subjective Progress Note Date: 01/28/18 The patient is a 72-year-old man with multiple medical problems who has been followed for confusion. Today he is feeling better and doing better. He is more alert and comprehension is better. According to the sitter who was sitting next to him he has been less confused today. The patient had a carotid ultrasound done yesterday which showed complete occlusion of the right common carotid artery, external carotid artery. There is no hemodynamically significant stenosis on the left. According to the patient he was aware of blockages in his carotids. He has a history of carotid stenosis. Patient was on aspirin at home and is currently on Eliquis Objective - Vital Signs Vital signs: Vital Signs Temp 97.0 F L 01/28/18 12:00 Pulse 69 01/28/18 15:00 Resp 18 01/28/18 15:00 BP 90/66 01/28/18 15:00 Pulse Ox 98 01/28/18 15:00 Intake & Output 01/28/18 01/28/18 01/29/18 06:59 18:59 06:59 Intake Total 794 Output Total 1385 650 Balance -1385 144 Weight 85.5 kg 85.5 kg Intake: Oral 794 Output: Urine 1385 650 Straight 810 Other: Voiding Method Urinal Indwelling Catheter # Voids 1 # Bowel Movements 0 - Constitutional General appearance: Present: average body habitus - EENT Eyes: Present: EOMI ENT: Present: hard of hearing - Respiratory Respiratory: bilateral: CTA - Cardiovascular Rhythm: regular - Neurologic Neurologic: Present: CNII-XII intact - Musculoskeletal Musculoskeletal: Present: strength equal bilaterally - Psychiatric Psychiatric: Present: A&O x's 3 - Labs CBC & Chem 7: 01/28/18 09:57 01/28/18 05:53 Labs: Abnormal Lab Results - Last 24 Hours (Table) 01/28/18 01/28/18 Range/Units 05:53 09:57 Plt Count 143 L (150-450) k/uL Monocytes # 1.1 H (0-1.0) k/uL Sodium 130 L (137-145) mmol/L Chloride 92 L (98-107) mmol/L BUN 29 H (9-20) mg/dL Creatinine 1.50 H (0.66-1.25) mg/dL AST 393 H (17-59) U/L ALT 512 H (21-72) U/L Total Protein 5.5 L (6.3-8.2) g/dL Albumin 3.2 L (3.5-5.0) g/dL Assessment and Plan (1) Altered mental status Current Visit: Yes Status: Acute SNOMED Code(s): 432614374 (2) Congestive heart failure Current Visit: Yes Status: Acute SNOMED Code(s): 26827623 (3) History of stroke Current Visit: Yes Status: Acute SNOMED Code(s): 718747749 Plan: The patient is a 72-year-old man admitted with congestive heart failure cardiomyopathy atrial flutter and history of stroke. He has a mild encephalopathy secondary to his multiple medical conditions The patient is doing better in terms of his confusion. He does have complete occlusion of the right common carotid artery per carotid ultrasound. Recommend vascular surgery consultation
[2018-01-28] MEDS: METOPROLOL TARTRATE 12.5 MG TAB PO SCH (21:32)
[2018-01-28] MEDS: MONTELUKAST 10 MG TAB PO SCH (21:35)
[2018-01-28] MEDS: ATORVASTATIN 40 MG TAB PO SCH (21:35)
[2018-01-29] MEDS: ALPRAZolam 0.25 MG TAB PO PRN (03:16)
[2018-01-29 06:30] LABS: Basophils % (A) 0 %; Eosinophils # (A) 0.1 k/uL (0-0.7); Eosinophils % (A) 1 %; HCT 38.9 % (39.0-53.0); HGB 12.3 gm/dL (13.0-17.5); Hypochromasia Moderate; Lymphocytes # (A) 0.3 k/uL (1.0-4.8); Lymphocytes % (A) 3 %; MCH 27.5 pg (25.0-35.0); MCHC 31.7 g/dL (31.0-37.0); MCV 86.9 fL (80.0-100.0); Mean Platelet Volume 12.1; Monocytes # (A) 1.8 k/uL (0-1.0); Monocytes % (A) 18 %; Neutrophils # (A) 7.4 k/uL (1.3-7.7); Neutrophils % (A) 74 %; Poikilocytosis Slight; RBC 4.48 m/uL (4.30-5.90); RDW 14.4 % (11.5-15.5)
[2018-01-29 06:39] LABS: Calcium 8.1 mg/dL (8.4-10.2); Potassium 3.9 mmol/L (3.5-5.1); Total Bilirubin 0.7 mg/dL (0.2-1.3); Total Protein 5.4 g/dL (6.3-8.2)
[2018-01-29] MEDS: NICOTINE 21MG/24HR PATCH TRANSDERM SCH (08:54)
[2018-01-29] MEDS: APIXABAN 5 MG TAB PO SCH ×2 (08:55→21:23)
[2018-01-29] MEDS: FINASTERIDE 5 MG TAB PO SCH (08:56)
[2018-01-29] MEDS: guaiFENesin 600 MG TABLET.ER PO SCH ×2 (08:56→21:23)
[2018-01-29] MEDS: METOPROLOL TARTRATE 12.5 MG TAB PO SCH ×2 (08:56→21:23)
[2018-01-29] MEDS: FAMOTIDINE 20 MG TAB PO SCH (08:56)
[2018-01-29] MEDS: TAMSULOSIN 0.4 MG CAP.ER.24H PO SCH (08:56)
[2018-01-29] MEDS: AMIODARONE 200 MG TAB PO SCH (09:29)
--- NOTE | 2018-01-29 11:55 | EEG ---
ELECTROENCEPHALOGRAM REPORT DATE OF EE01/28/2018. REFERRING PHYSICIAN: Dr. Moura. INTERPRETING PHYSICIAN: Dr. Giorgio Hay ELECTROENCEPHALOGRAPHIC EXAMINATION REPORT: INDICATION FOR EXAMINATION: This patient is a 72-year-old male being evaluated for altered mental status and confusion. Patient has history of hearing loss. AGE: 72. EEG FINDINGS: A routine 21 channel awake digital EEG recording was accomplished utilizing the 10-20 international system with bipolar and referential montages. The background activity in the most alert resting state consists of a low to medium amplitude, poorly developed and poorly sustained 6 Hz activity over the posterior head regions. This posterior rhythm attenuates to eye opening. There is a small amount of low amplitude 18-20 Hz beta activity seen maximally over the anterior head regions. Muscle and movement artifact was observed on a few occasions during the tracing. Hyperventilation was not performed. Photic stimulation at flash frequencies of 2-30 Hz produced a minimal occipital driving response. No epileptiform discharges were seen. IMPRESSION: This EEG is moderately abnormal in a diffuse fashion due to slowing of the EEG background. The EEG failed to reveal any focal, lateralized, or epileptiform abnormalities. Clinical correlation is recommended. MMODL / IJN: [id number] /
--- NOTE | 2018-01-29 12:10 | CONS ---
DATE OF CONSULTATION: 01/29/2018 This is a 73-year-old gentleman who has been admitted to [facility] with history of confusion and congestive heart failure. He had a carotid ultrasound, which showed right totally occluded. Left side is patent. The patient had a right carotid endarterectomy done in the past by Dr. Jones. The patient has no history off TIA or amaurosis fugax. No history of motor deficit. EXAMINATION: Patient was seen in his room. He is more alert. NECK: Supple. No bruit appreciated. He has a normal motor function upper and lower extremity. Femoral pulses are present. IMPRESSION: 1. Right carotid totally occluded. 2. Left carotid is patent. At this point, the patient is asymptomatic from his right carotid artery which has been occluded chronically from previous carotid endarterectomy. No role of surgical intervention at this point. Will follow in my office in 2 weeks. MMODL / IJN: [id number] / MTDGaston
[2018-01-29] MEDS: SODIUM CHLORIDE 0.9% 1,000 ML IV SCH ×2 (13:01→13:02)
--- NOTE | 2018-01-29 14:02 | P.PN ---
Subjective Patient is lying flat in bed. He looks comfortable. However he does have bilateral rhonchorous breath sounds no JVD denies any chest discomfort Blood pressure 170-83 mmHg respirations normal afebrile and 7.3F pulse rate in the 70s Heart sounds are normal no murmurs or gallops no rub Breath sounds are reduced bilaterally with bilateral rhonchorous breath sounds Abdomen is soft nontender Extremities warm Impression Atrial flutter with RVR, typical status post electrocardioversion patient is now on ELIQUIS Cardio myopathy , etiology/cause not determined at this point Congestive heart failure acute and chronic [id number] pericardial effusion without evidence for tamponade plan Oral amiodarone, reduce the dose of metoprolol, back off on diuresis, observation at this time and check TSH Objective - Vital Signs Vital signs: Vital Signs Temp 97.3 F L 01/29/18 11:50 Pulse 73 01/29/18 11:50 Resp 18 01/29/18 11:50 BP 168/79 01/29/18 11:50 Pulse Ox 98 01/29/18 11:50 Intake & Output 01/28/18 01/29/18 01/29/18 18:59 06:59 18:59 Intake Total 794 Output Total 650 700 Balance 144 -700 Weight 85.5 kg 89 kg Intake: Oral 794 Output: Urine 650 700 Other: Voiding Method Indwelling Catheter Indwelling Catheter Indwelling Catheter # Bowel Movements 0 - Labs CBC & Chem 7: 01/29/18 05:32 01/29/18 05:32 Labs: Abnormal Lab Results - Last 24 Hours (Table) 01/29/18 01/29/18 Range/Units 05:32 05:32 Hgb 12.3 L (13.0-17.5) gm/dL Hct 38.9 L (39.0-53.0) % Lymphocytes # 0.3 L (1.0-4.8) k/uL Monocytes # 1.8 H (0-1.0) k/uL Sodium 131 L (137-145) mmol/L Chloride 91 L (98-107) mmol/L Carbon Dioxide 32 H (22-30) mmol/L BUN 27 H (9-20) mg/dL Calcium 8.1 L (8.4-10.2) mg/dL AST 150 H (17-59) U/L ALT 396 H (21-72) U/L Total Protein 5.4 L (6.3-8.2) g/dL Albumin 3.0 L (3.5-5.0) g/dL
[2018-01-29] MEDS: traMADol 50 MG TAB PO PRN ×2 (14:45→21:22)
[2018-01-29 16:18] LABS: Appearance,Urine Clear (Clear); Bacteria,Urine Rare /hpf; Bilirubin,Urine Negative (Negative); Blood,Urine Moderate (Negative); Color,Urine Yellow; Glucose,Urine (UA) Negative (Negative); Ketones,Urine Negative (Negative); Leukocyte Esterase,Urine Small (Negative); Mucus,Urine Rare /hpf; Nitrite,Urine Negative (Negative); Protein,Urine Trace (Negative); RBC,Urine 18 /hpf (0-5); Specific Gravity,Urine 1.009 (1.001-1.035); WBC,Urine 14 /hpf (0-5)
--- NOTE | 2018-01-29 19:48 | P.PN ---
Subjective Progress Note Date: 01/29/18 Principal diagnosis: Atrial flutter with rapid ventricular rate, status post electrocardioversion, moderate pericardial effusion without tamponade this is a 72 years old male with past medical history of hypertension , recent stroke 3 months ago patient of Dr. Metz care of [facility] last admitted in September for acute gastroenteritis comes in with shortness of breath that has been getting worse for the past few weeks. He denies any nausea or vomiting, lightheadedness or dizziness, no chest pain. chest x-ray done in the ER suggestive of mild CHF, labs were positive for a BNP of 6140 with normal troponin. Initial white is obtainable floor suggestive of a heart rate of 145, blood pressure 94/67 saturated room air 91%. Patient was seen by cardiology who suggested patient has atrial flutter. Will be taken for cardioversion tomorrow. Initiated on Celebrex Patient was initiated on Lasix 80 mg twice a day after a dose of Lasix. 01/27 Patient was noted to have some confusion last night, head CT ordered shows chronic white matter ischemic changes, old watershed infarct, and no acute intracranial changes. Today confusion has improved. Hypotension has improved, blood pressure 105/84 patient underwent TAMIR and cardioversion today. He had successful electrical cardioversion to sinus rhythm, patient noted to have severe cardiomyopathy on TAMIR. TAMIR shows left ventricular cavity is dilated with severe impaired left ventricular systolic function, moderate degree of mitral regurgitation, mild degree of tricuspid regurgitation. Echocardiogram reveals ejection fraction less than 20%, moderate left ventricular hypertrophy, LA is severely dialted, and moderate pericaridal effusion. 01/28 blood pressure on the lower side today. Patient is more confused than yesterday likely secondary to delirium. He does answer questions appropriately once disoriented. Pending for today. Neurology consulted. Patient has significant occlusion of the right common carotid artery external carotid artery and internal carotid artery with retrograde flow in the right vertebral artery representing subclavian steal syndrome. He has seen vascular surgery in the past who has recommended conservative management for the above. Metoprolol dose reduced to 12.5 mg twice daily. Amiodarone initiated at 200 mg daily Lasix held as patient has low blood pressure. Pericardial effusion documented on echocardiogram appears to be chronic secondary to viral infection. 01/29: Patient was seen at bedside he seems to be more confused today, appetite seems to be decreased, sitter at bedside, patient feels weak, unsteady on standing, balance impaired. Physical therapy requested, urine culture and sensitivity requested secondary to delirium, underlying dementia cannot be ruled out, no other neurologic focal deficits noted. Patient does not have any nausea no vomiting, no fever. Vascular has evaluated him, chronic right complete occlusion carotid stenosis no surgery required him and discussed with Dr. Kennedy. Orozco catheter has been placed secondary to urinary retention, postvoid residual over at least 300 mL, Orozco catheter in place patient on Flomax Objective - Vital Signs Vital signs: Vital Signs Temp 97.3 F L 01/29/18 04:00 Pulse 76 01/29/18 04:00 Resp 18 01/29/18 04:00 BP 97/73 01/29/18 04:00 Pulse Ox 92 L 01/29/18 04:00 Intake & Output 01/28/18 01/29/18 01/29/18 18:59 06:59 18:59 Intake Total 794 Output Total 650 700 Balance 144 -700 Weight 85.5 kg 89 kg Intake: Oral 794 Output: Urine 650 700 Other: Voiding Method Indwelling Catheter Indwelling Catheter # Bowel Movements 0 - Constitutional General appearance: Present: average body habitus, cooperative, disheveled, no acute distress - EENT Eyes: Present: anicteric sclerae, EOMI, PERRLA, dentition normal, normal appearance ENT: Present: hearing grossly normal, NA/AT, normal oropharynx - Neck Neck: Present: normal ROM - Cardiovascular Rhythm: irregularly irregular Heart sounds: normal: S1, S2 Abnormal Heart Sounds: Present: systolic murmur - Gastrointestinal General gastrointestinal: Present: normal bowel sounds, soft - Integumentary Integumentary: Present: decreased turgor, normal - Neurologic Neurologic: Present: CNII-XII intact - Musculoskeletal Musculoskeletal: Present: generalized weakness, strength equal bilaterally - Psychiatric Psychiatric: Present: appropriate affect - Labs CBC & Chem 7: 01/29/18 05:32 01/29/18 05:32 Labs: Abnormal Lab Results - Last 24 Hours (Table) 01/28/18 01/29/18 01/29/18 Range/Units 09:57 05:32 05:32 Hgb 12.3 L (13.0-17.5) gm/dL Hct 38.9 L (39.0-53.0) % Plt Count 143 L (150-450) k/uL Lymphocytes # 0.3 L (1.0-4.8) k/uL Monocytes # 1.1 H 1.8 H (0-1.0) k/uL Sodium 131 L (137-145) mmol/L Chloride 91 L (98-107) mmol/L Carbon Dioxide 32 H (22-30) mmol/L BUN 27 H (9-20) mg/dL Calcium 8.1 L (8.4-10.2) mg/dL AST 150 H (17-59) U/L ALT 396 H (21-72) U/L Total Protein 5.4 L (6.3-8.2) g/dL Albumin 3.0 L (3.5-5.0) g/dL Laboratory Results WBC 10.0 k/uL (3.8-10.6) 01/29/18 05:32 RBC 4.48 m/uL (4.30-5.90) 01/29/18 05:32 Hgb 12.3 gm/dL (13.0-17.5) L 01/29/18 05:32 Hct 38.9 % (39.0-53.0) L 01/29/18 05:32 MCV 86.9 fL (80.0-100.0) 01/29/18 05:32 MCH 27.5 pg (25.0-35.0) 01/29/18 05:32 MCHC 31.7 g/dL (31.0-37.0) 01/29/18 05:32 RDW 14.4 % (11.5-15.5) 01/29/18 05:32 Plt Count k/uL (150-450) 01/29/18 05:32 Neutrophils % 74 % 01/29/18 05:32 Lymphocytes % 3 % 01/29/18 05:32 Monocytes % 18 % 01/29/18 05:32 Eosinophils % 1 % 01/29/18 05:32 Basophils % 0 % 01/29/18 05:32 Neutrophils # 7.4 k/uL (1.3-7.7) 01/29/18 05:32 Lymphocytes # 0.3 k/uL (1.0-4.8) L 01/29/18 05:32 Monocytes # 1.8 k/uL (0-1.0) H 01/29/18 05:32 Eosinophils # 0.1 k/uL (0-0.7) 01/29/18 05:32 Basophils # 0.0 k/uL (0-0.2) 01/29/18 05:32 Manual Slide Review Performed 01/29/18 05:32 Hypochromasia Moderate 01/29/18 05:32 Poikilocytosis Slight 01/29/18 05:32 PT 13.3 sec (9.0-12.0) H 01/25/18 13:00 INR 1.4 (<1.2) H 01/25/18 13:00 APTT 23.4 sec (22.0-30.0) 01/25/18 13:00 Sodium 131 mmol/L (137-145) L 01/29/18 05:32 Potassium 3.9 mmol/L (3.5-5.1) 01/29/18 05:32 Chloride 91 mmol/L (98-107) L 01/29/18 05:32 Carbon Dioxide 32 mmol/L (22-30) H 01/29/18 05:32 Anion Gap 8 mmol/L 01/29/18 05:32 BUN 27 mg/dL (9-20) H 01/29/18 05:32 Creatinine 1.16 mg/dL (0.66-1.25) 01/29/18 05:32 Est GFR (CKD-EPI)AfAm 72 (>60 ml/min/1.73 sqM) 01/29/18 05:32 Est GFR (CKD-EPI)NonAf 63 (>60 ml/min/1.73 sqM) 01/29/18 05:32 Glucose 80 mg/dL (74-99) 01/29/18 05:32 Calcium 8.1 mg/dL (8.4-10.2) L 01/29/18 05:32 Magnesium 2.0 mg/dL (1.6-2.3) 01/25/18 13:00 Total Bilirubin 0.7 mg/dL (0.2-1.3) 01/29/18 05:32 AST 150 U/L (17-59) H 01/29/18 05:32 ALT 396 U/L (21-72) H 01/29/18 05:32 Alkaline Phosphatase 116 U/L (38-126) 01/29/18 05:32 Troponin I 0.028 ng/mL (0.000-0.034) 01/26/18 01:21 NT-Pro-B Natriuret Pep 6140 pg/mL 01/25/18 13:00 Total Protein 5.4 g/dL (6.3-8.2) L 01/29/18 05:32 Albumin 3.0 g/dL (3.5-5.0) L 01/29/18 05:32 Triglycerides 65 mg/dL (<150) 01/26/18 11:44 Cholesterol 98 mg/dL (<200) 01/26/18 11:44 LDL Cholesterol, Calc 54 mg/dL (0-99) 01/26/18 11:44 HDL Cholesterol 31 mg/dL (40-60) L 01/26/18 11:44 TSH 2.410 mIU/L (0.465-4.680) 01/26/18 11:44 Urine Color Yellow 01/29/18 16:00 Urine Appearance Clear (Clear) 01/29/18 16:00 Urine pH 6.0 (5.0-8.0) 01/29/18 16:00 Ur Specific Lynn 1.009 (1.001-1.035) 01/29/18 16:00 Urine Protein Trace (Negative) H 01/29/18 16:00 Urine Glucose (UA) Negative (Negative) 01/29/18 16:00 Urine Ketones Negative (Negative) 01/29/18 16:00 Urine Blood Moderate (Negative) H 01/29/18 16:00 Urine Nitrite Negative (Negative) 01/29/18 16:00 Urine Bilirubin Negative (Negative) 01/29/18 16:00 Urine Urobilinogen 2.0 mg/dL (<2.0) 01/29/18 16:00 Ur Leukocyte Esterase Small (Negative) H 01/29/18 16:00 Urine RBC 18 /hpf (0-5) H 01/29/18 16:00 Urine WBC 14 /hpf (0-5) H 01/29/18 16:00 Urine Bacteria Rare /hpf (None) H 01/29/18 16:00 Urine Mucus Rare /hpf (None) H 01/29/18 16:00 Assessment and Plan Plan: 1 Acute CHF systolic improving. Previous echo was normal, there is reduction in ejection fraction in this admission with an EF <20%. TAMIR shows severe cardiomyopathy with moderate pericardial effusion which is likely chronic. Lasix held as patient appears to be over diuresed. Urine output reduced. 500 bolus given #2 hypotention likely secondary to dehydration and atrial flutter, blood pressure has improved with fluids. 500 bolus given today. Lasix is held metoprolol dose reduced to 12.5 mg twice a day #3 New atrial flutter s/p cardioversion - continue metoprolol 12.5 mg PO BID Patient underwent cardioversion to sinus rhythm. Continue eliquis 5 mg twice a day. #4 hypertension-continue home medications including metoprolol. 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 Follows with Dr. Kennedy. Patient also follow Dr. Jones who recommended conservative management #10 GI prophylaxis Pepcid 20 mg po twice a day #11 DVT prophylaxis on eliquis #12 code status full code # 13 change in mental status likely secondary to delirium. CT head negative for any acute abnormality. EEG pending urinalysis obtained 01/29, has some pyuria, urine cultures were sent, IV antibiotics started and transition to orals , #14 impaired balance, physical therapy and occupational therapies to see the patient, skilled therapies expected, inpatient against subacute consult with Dr. Coronel #15, pericardial effusion, moderate, no plans for surgical intervention patient currently is on diuretics cardiology following closely #16, mild routine malnutrition, patient has diminished appetite, nutritional supplementation and requested #17 acute transaminitis most likely secondary to right-sided heart failure, levels are trending downward #18 acute renal insufficiency CK D stage II most likely secondary to postobstructive issues, along with ATN with hypotension,, monitor for post void residual after Orozco catheter would be discontinued, continue to monitor chemistries #19, pyuria with BPH and lower urinary tract symptomatology, causing delirium, patient will be started on IV Rocephin, cephalosporins oral on discharge\ \ #20, discharge planning, therapies with guide discharge,
[2018-01-29] MEDS: MONTELUKAST 10 MG TAB PO SCH (21:23)
[2018-01-29] MEDS: ATORVASTATIN 40 MG TAB PO SCH (21:24)
[2018-01-30 07:03] LABS: Basophils % (A) 0 %; Eosinophils # (A) 0.1 k/uL (0-0.7); Eosinophils % (A) 2 %; HCT 39.7 % (39.0-53.0); HGB 12.6 gm/dL (13.0-17.5); Hypochromasia Moderate; Lymphocytes # (A) 1.2 k/uL (1.0-4.8); Lymphocytes % (A) 15 %; MCH 27.2 pg (25.0-35.0); MCHC 31.6 g/dL (31.0-37.0); MCV 86.1 fL (80.0-100.0); Mean Platelet Volume 10.3; Monocytes # (A) 0.7 k/uL (0-1.0); Monocytes % (A) 9 %; Neutrophils # (A) 5.7 k/uL (1.3-7.7); Neutrophils % (A) 73 %; Platelet Count 163 k/uL (150-450); Poikilocytosis Slight; RBC 4.61 m/uL (4.30-5.90); RDW 14.4 % (11.5-15.5); WBC 7.9 k/uL (3.8-10.6)
[2018-01-30 08:05] LABS: ALT 311 U/L (21-72); AST 78 U/L (17-59); Alkaline Phosphatase 119 U/L (38-126); Anion Gap 8 mmol/L; Bilirubin, Delta 0.4 mg/dL (0.0-0.2); Bilirubin,Unconjugated 0.2 mg/dL (0.0-1.1); Blood Urea Nitrogen 19 mg/dL (9-20); Calcium 8.4 mg/dL (8.4-10.2); Carbon Dioxide 31 mmol/L (22-30); Chloride 95 mmol/L (98-107); Glucose 102 mg/dL (74-99); Potassium 3.8 mmol/L (3.5-5.1); Sodium 134 mmol/L (137-145); Total Bilirubin 0.6 mg/dL (0.2-1.3); Total Protein 5.5 g/dL (6.3-8.2)
[2018-01-30] MEDS: IPRATROPIUM-ALBUTEROL 3 ML NEB INHALATION SCH ×4 (08:09→21:15)
[2018-01-30] MEDS: FAMOTIDINE 20 MG TAB PO SCH (09:02)
[2018-01-30] MEDS: guaiFENesin 600 MG TABLET.ER PO SCH ×2 (09:02→20:32)
[2018-01-30] MEDS: AMIODARONE 200 MG TAB PO SCH (09:02)
[2018-01-30] MEDS: APIXABAN 5 MG TAB PO SCH ×2 (09:02→20:33)
[2018-01-30] MEDS: FINASTERIDE 5 MG TAB PO SCH (09:02)
[2018-01-30] MEDS: NICOTINE 21MG/24HR PATCH TRANSDERM SCH (09:03)
[2018-01-30] MEDS: TAMSULOSIN 0.4 MG CAP.ER.24H PO SCH (09:03)
[2018-01-30] MEDS: METOPROLOL TARTRATE 12.5 MG TAB PO SCH (09:03)
[2018-01-30] MEDS ORDERED: FUROSEMIDE 10 MG/ML 4 ML VIAL IV STA (09:41)
[2018-01-30] MEDS ORDERED: POTASSIUM CHLORIDE ER 20 MEQ TAB.ER PO STA (09:42)
[2018-01-30] MEDS: cefTRIAXone IN SWFI 1,000 MG/10 ML SYRINGE IVP SCH (10:49)
[2018-01-30] MEDS: SODIUM CHLORIDE 0.9% 1,000 ML IV SCH ×2 (10:52→11:47)
[2018-01-30] MEDS ORDERED: FUROSEMIDE 10 MG/ML 10 ML VIAL IV STA (11:33)
[2018-01-30] MEDS: methylPREDNISolone SOD SUCCI 125 MG/2 ML VIAL IV SCH ×3 (11:47→23:13)
--- NOTE | 2018-01-30 11:50 | CT ---
EXAMINATION TYPE: CT chest wo con DATE OF EXAM: 01/30/2018 COMPARISON: NONE HISTORY: Patient complains of difficulty breathing. CT DLP: 426 mGycm. Automated Exposure Control for Dose Reduction was Utilized. TECHNIQUE: CT scan of the thorax is performed without IV contrast. FINDINGS: LUNGS: There are moderate to large bilateral pleural effusions and associated compressive subsegmenta l atelectasis. Extensive bullous emphysematous changes are seen of both lungs. Linear opacity within the right upper lobe near the interlobar fissure is similar on the left and favored to represent atel ectasis. Right lower lobe linear opacity is triangular shaped and also favored to represent atelectas is. Lingular atelectasis is also seen. MEDIASTINUM: Lack of IV contrast is noted to limit evaluation for mediastinal and especially hilar ad enopathy. There are no definitive greater than 1 cm hilar or mediastinal lymph nodes. Mediastinal nod es measure up to 1 cm in short axis. There is mild cardiomegaly, extensive calcific changes of the co ronary arteries, a small pericardial effusion, and enlargement of the main as well as right and left pulmonary arteries. Ascending thoracic aorta is upper limits of normal size measuring 3.8 cm. OTHER: Asymmetric right renal atrophy and nodularity of the left adrenal gland are seen within the un enhanced abdomen as well as a small amount of abdominal ascites. Small hiatal hernia is also seen. Mi ld multilevel degenerative changes of the thoracic spine are present. IMPRESSION: 1. Moderate to large bilateral pleural effusions with associated multifocal subsegmental atelectasis. 2. Extensive bullous emphysematous changes as pronounced within the lung apices. 3. Enlargement of the main pulmonary artery, which may clinically correlate with pulmonary arterial h ypertension. 4. Extensive coronary artery calcifications, marker for coronary artery disease. 5. Partially visualized small volume abdominal ascites. 6. Right renal atrophy and nodularity of the left adrenal gland. 7. Small hiatal hernia.
[2018-01-30] MEDS ORDERED: FUROSEMIDE 40 MG TAB PO SCH (12:45)
--- NOTE | 2018-01-30 12:45 | P.PN ---
Subjective Patient is doing well. He is lying comfortably in bed. He states he was a little short of breath before but he looks comfortable now getting a breathing treatment. Denies any chest discomfort no orthopnea CT of the chest reviewed and this shows moderate to large bilateral pleural effusions with multifocal subsegmental atelectasis and extensive bullous emphysema and enlargement of the main pulmonary artery On examination he is afebrile 97.4F, pulse rate in the 60s blood pressure 128/ 68 mmHg Breath sounds are reduced bilaterally rhonchorous breath sounds bilaterally Heart sounds. Soft no murmurs or gallop Abdomen is soft Extremities warm Impression Atrial flutter with RVR status post electrical cardioversion currently on low- dose amiodarone and on anticoagulation with ELIQUIS Severe LV dysfunction currently on metoprolol tartrate CHF exacerbation bilateral pleural effusions severe lung disease Suggest Switched to long-acting metoprolol Stop oral potassium and start aspirin lactone 25 g by mouth daily By mouth Lasix 40 mg daily Losartan 12.5 mg by mouth daily Objective - Vital Signs Vital signs: Vital Signs Temp 97.4 F L 01/30/18 11:37 Pulse 64 01/30/18 12:00 Resp 18 01/30/18 11:37 BP 128/68 01/30/18 11:37 Pulse Ox 94 L 01/30/18 11:37 Intake & Output 01/29/18 01/30/18 01/30/18 17:59 06:59 18:59 Intake Total Output Total Balance Weight Intake: Oral Output: Urine Other: Voiding Method Indwelling Catheter - Labs CBC & Chem 7: 01/30/18 06:30 01/30/18 06:30 Labs: Abnormal Lab Results - Last 24 Hours (Table) 01/29/18 01/30/18 01/30/18 Range/Units 16:00 06:30 06:30 Hgb 12.6 L (13.0-17.5) gm/dL Sodium 134 L (137-145) mmol/L Chloride 95 L (98-107) mmol/L Carbon Dioxide 31 H (22-30) mmol/L Glucose 102 H (74-99) mg/dL Delta Bilirubin 0.4 H (0.0-0.2) mg/dL AST 78 H (17-59) U/L ALT 311 H (21-72) U/L Total Protein 5.5 L (6.3-8.2) g/dL Albumin 3.0 L (3.5-5.0) g/dL Urine Protein Trace H (Negative) Urine Blood Moderate H (Negative) Ur Leukocyte Esterase Small H (Negative) Urine RBC 18 H (0-5) /hpf Urine WBC 14 H (0-5) /hpf Urine Bacteria Rare H (None) /hpf Urine Mucus Rare H (None) /hpf Microbiology - Last 24 Hours (Table) 01/30/18 05:25 Urine Culture - Preliminary Urine,Catheterized
--- NOTE | 2018-01-30 19:50 | CONS ---
CONSULTATION Nathan Allen is a 73-year-old male who presented to [facility] on January 25, 2018. At that time, he had been complaining of shortness of breath, had been getting worse for a couple of weeks prior to coming in. He had a history of COPD and had been taking his nebulized treatments and albuterol. Today, he is quite confused and is short of breath as well. He denies any chest pain at this time. PAST MEDICAL HISTORY: Positive for COPD, CVA, TIA, hypertension, carotid endarterectomy. FAMILY HISTORY: Positive for sudden cardiac in his father, mother had no chronic medical problems and of old age. SOCIAL HISTORY: Patient is a current every day smoker. MEDICATIONS: Prior to coming in were aspirin, montelukast, tamsulosin, Lipitor, Ventolin, tizanidine, Ultram, saw palmetto, finasteride, tramadol. REVIEW OF SYSTEMS: Noncontributory. PHYSICAL EXAMINATION: The patient is lying in bed. He was quite short of breath. His respiratory rate is 26, pulse rate of 90, blood pressure is stable. He is afebrile. HEENT reveals pupils are equal chest with decreased breath sounds in the bases bilaterally with prolonged expiration. Bilateral expiratory wheeze. Cardiovascular system was S1, S2. No S3, no S4. No murmurs. ABDOMEN: Soft. There is 1+ to 2+ pedal edema. LABS: Reveal a white count of 7.9, hemoglobin of 12.6, sodium 134, potassium 3.8, chloride 95, bicarb 31. Microbiological cultures showed preliminary cultures in the urine, which were negative so far. IMPRESSION: 1. Chronic obstructive pulmonary disease with acute exacerbation. 2. Bilateral pleural effusions. Evidence of CT scan consistent with congestive heart failure and fluid overload. 3. Urinary tract infection. 4. Metabolic encephalopathy. 5. Severe chronic obstructive pulmonary disease with exacerbation. At this point in time, I agree with keeping him on IV steroids, bronchodilators, aerosolized steroids, give him an extra dose of Lasix. Attempt to keep him in negative fluid balance. Agree with neurology workup and defer to Cardiology for further treatment of his congestive heart failure. His prognosis at this time is guarded. We will follow him closely during his hospital stay and appreciate the opportunity to participate in his care. MMODL / IJN: [id number] /
--- NOTE | 2018-01-30 20:17 | P.PN ---
Subjective Progress Note Date: 01/30/18 Principal diagnosis: Atrial flutter with rapid ventricular rate, status post electrocardioversion, moderate pericardial effusion without tamponade this is a 72 years old male with past medical history of hypertension , recent stroke 3 months ago patient of Dr. Metz care of [facility] last admitted in September for acute gastroenteritis comes in with shortness of breath that has been getting worse for the past few weeks. He denies any nausea or vomiting, lightheadedness or dizziness, no chest pain. chest x-ray done in the ER suggestive of mild CHF, labs were positive for a BNP of 6140 with normal troponin. Initial white is obtainable floor suggestive of a heart rate of 145, blood pressure 94/67 saturated room air 91%. Patient was seen by cardiology who suggested patient has atrial flutter. Will be taken for cardioversion tomorrow. Initiated on Celebrex Patient was initiated on Lasix 80 mg twice a day after a dose of Lasix. 01/27 Patient was noted to have some confusion last night, head CT ordered shows chronic white matter ischemic changes, old watershed infarct, and no acute intracranial changes. Today confusion has improved. Hypotension has improved, blood pressure 105/84 patient underwent TAMIR and cardioversion today. He had successful electrical cardioversion to sinus rhythm, patient noted to have severe cardiomyopathy on TAMIR. TAMIR shows left ventricular cavity is dilated with severe impaired left ventricular systolic function, moderate degree of mitral regurgitation, mild degree of tricuspid regurgitation. Echocardiogram reveals ejection fraction less than 20%, moderate left ventricular hypertrophy, LA is severely dialted, and moderate pericaridal effusion. 01/28 blood pressure on the lower side today. Patient is more confused than yesterday likely secondary to delirium. He does answer questions appropriately once disoriented. Pending for today. Neurology consulted. Patient has significant occlusion of the right common carotid artery external carotid artery and internal carotid artery with retrograde flow in the right vertebral artery representing subclavian steal syndrome. He has seen vascular surgery in the past who has recommended conservative management for the above. Metoprolol dose reduced to 12.5 mg twice daily. Amiodarone initiated at 200 mg daily Lasix held as patient has low blood pressure. Pericardial effusion documented on echocardiogram appears to be chronic secondary to viral infection. 01/29: Patient was seen at bedside he seems to be more confused today, appetite seems to be decreased, sitter at bedside, patient feels weak, unsteady on standing, balance impaired. Physical therapy requested, urine culture and sensitivity requested secondary to delirium, underlying dementia cannot be ruled out, no other neurologic focal deficits noted. Patient does not have any nausea no vomiting, no fever. Vascular has evaluated him, chronic right complete occlusion carotid stenosis no surgery required him and discussed with Dr. Kennedy. Orozco catheter has been placed secondary to urinary retention, postvoid residual over at least 300 mL, Orozco catheter in place patient on Flomax 01/30: Patient was a bit more dyspneic last night, patient required Lasix IV 40 mg last night, with additional 60 mg this morning, nebulized treatments this morning, patient has some bronchospasms, consult to Dr. Nathaly Rogers, CAT scan of the chest was requested, patient was placed on Rocephin for suspected urinary tract infection, cultures are currently pending, patient has increasing O2 requirements from 3 L this can lead to 5 L next cannula overnight, secondary to hypoxemia blood pressure remained stable at 121 systolic however he has low blood pressure around 84 systolic yesterday evening. Solu-Medrol 60 mg started for bronchospasms. Objective - Vital Signs Vital signs: Vital Signs Temp 97.4 F L 01/30/18 07:05 Pulse 88 01/30/18 08:25 Resp 18 01/30/18 07:05 BP 115/76 01/30/18 07:05 Pulse Ox 95 01/30/18 08:13 Intake & Output 01/29/18 01/30/18 01/30/18 17:59 06:59 18:59 Intake Total Output Total Balance Weight Intake: Oral Output: Urine Other: Voiding Method Indwelling Catheter - Constitutional General appearance: Present: cooperative, mild distress - EENT Eyes: Present: anicteric sclerae, EOMI, PERRLA, dentition normal, normal appearance ENT: Present: hard of hearing, NA/AT, normal oropharynx - Neck Neck: Present: normal ROM. Absent: lymphadenopathy, other, rigidity, stridor, thyromegaly - Respiratory Respiratory: bilateral: CTA, negative: diminished, dullness, rales, rhonchi - Cardiovascular Rhythm: regular Heart sounds: normal: S1, S2 Abnormal Heart Sounds: Present: systolic murmur - Gastrointestinal General gastrointestinal: Present: normal bowel sounds, soft - Integumentary Integumentary: Present: decreased turgor, normal - Neurologic Neurologic: Present: CNII-XII intact - Musculoskeletal Musculoskeletal: Present: generalized weakness, strength equal bilaterally - Psychiatric Psychiatric: Present: A&O x's 3, appropriate affect, intact judgment & insight - Labs CBC & Chem 7: 01/30/18 06:30 01/30/18 06:30 Labs: Abnormal Lab Results - Last 24 Hours (Table) 01/29/18 01/30/18 01/30/18 Range/Units 16:00 06:30 06:30 Hgb 12.6 L (13.0-17.5) gm/dL Sodium 134 L (137-145) mmol/L Chloride 95 L (98-107) mmol/L Carbon Dioxide 31 H (22-30) mmol/L Glucose 102 H (74-99) mg/dL Delta Bilirubin 0.4 H (0.0-0.2) mg/dL AST 78 H (17-59) U/L ALT 311 H (21-72) U/L Total Protein 5.5 L (6.3-8.2) g/dL Albumin 3.0 L (3.5-5.0) g/dL Urine Protein Trace H (Negative) Urine Blood Moderate H (Negative) Ur Leukocyte Esterase Small H (Negative) Urine RBC 18 H (0-5) /hpf Urine WBC 14 H (0-5) /hpf Urine Bacteria Rare H (None) /hpf Urine Mucus Rare H (None) /hpf Assessment and Plan Plan: 1 Acute CHF systolic improving. Previous echo was normal, there is reduction in ejection fraction in this admission with an EF <20%. TAMIR shows severe cardiomyopathy with moderate pericardial effusion which is likely chronic. Diuretics restarted secondary to hypoxemia and dyspnea, IV Lasix which would be transitioned to spironolactone Urine output reduced. 500 bolus given #2 hypotention likely secondary to dehydration and atrial flutter, blood pressure has improved with fluids. Hydrated and stabilized, Lasix has to be restarted secondary to dyspnea and pleural effusion, CHF metoprolol dose reduced to 12.5 mg twice a day #3 New atrial flutter s/p cardioversion - continue metoprolol 12.5 mg PO BID Patient underwent cardioversion to sinus rhythm. Continue eliquis 5 mg twice a day. #4 hypertension-continue home medications including metoprolol. 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 Follows with Dr. Kennedy. Patient also follow Dr. Jones who recommended conservative management #10 GI prophylaxis Pepcid 20 mg po twice a day #11 DVT prophylaxis on eliquis #12 code status full code # 13 change in mental status likely secondary to delirium. CT head negative for any acute abnormality. EEG pending urinalysis obtained 01/29, has some pyuria, urine cultures were sent, IV antibiotics Rocephin started and transition to orals, #14 impaired balance, physical therapy and occupational therapies to see the patient, skilled therapies expected, inpatient against subacute consult with Dr. Coronel #15, large pericardial effusion, moderate, no plans for surgical intervention patient currently is on diuretics cardiology following closely, pulmonary consulted Dr. Turner/Genevieve Rogers, #16, mild routine malnutrition, patient has diminished appetite, nutritional supplementation and requested #17 acute transaminitis most likely secondary to right-sided heart failure, levels are trending downward #18 acute renal insufficiency CK D stage II most likely secondary to postobstructive issues, along with ATN with hypotension,, monitor for post void residual after Orozco catheter would be discontinued, continue to monitor chemistries #19, pyuria with BPH and lower urinary tract symptomatology, causing delirium, patient will be started on IV Rocephin, cephalosporins oral on discharge 20. COPD exacerbation, patient was started on Solu-Medrol IV, and nebulized albuterol Atrovent, 21 abdominal ascites noted on CAT scan,, most likely secondary to hypoalbuminemia, however other pathologies are not excluded, IV Lasix, continue to monitor 22. Coronary artery calcifications,/CAD, 20, discharge planning, therapies with guide discharge,
[2018-01-30] MEDS: ATORVASTATIN 40 MG TAB PO SCH (20:32)
[2018-01-30] MEDS: MONTELUKAST 10 MG TAB PO SCH (20:32)
[2018-01-30] MEDS: LOSARTAN 25 MG TAB PO SCH (20:32)
[2018-01-30] MEDS: BUDESONIDE 0.5 MG/2 ML NEBU INHALATION SCH (21:16)
[2018-01-30] MEDS ORDERED: IPRATROPIUM-ALBUTEROL 3 ML NEB INHALATION PRN (22:12)
[2018-01-31] MEDS: methylPREDNISolone SOD SUCCI 125 MG/2 ML VIAL IV SCH ×4 (05:43→23:02)
[2018-01-31 06:16] LABS: Basophils % (A) 0 %; Eosinophils % (A) 0 %; HCT 43.3 % (39.0-53.0); HGB 13.7 gm/dL (13.0-17.5); Hypochromasia Moderate; Lymphocytes # (A) 0.4 k/uL (1.0-4.8); Lymphocytes % (A) 6 %; MCH 27.1 pg (25.0-35.0); MCHC 31.7 g/dL (31.0-37.0); MCV 85.4 fL (80.0-100.0); Mean Platelet Volume 8.4; Monocytes # (A) 0.2 k/uL (0-1.0); Monocytes % (A) 4 %; Neutrophils # (A) 6.3 k/uL (1.3-7.7); Neutrophils % (A) 90 %; Platelet Count 252 k/uL (150-450); Poikilocytosis Slight; RBC 5.06 m/uL (4.30-5.90); RDW 14.3 % (11.5-15.5); WBC 6.9 k/uL (3.8-10.6)
[2018-01-31 06:31] LABS: Anion Gap 10 mmol/L; Blood Urea Nitrogen 16 mg/dL (9-20); Calcium 9.1 mg/dL (8.4-10.2); Carbon Dioxide 37 mmol/L (22-30); Chloride 89 mmol/L (98-107); Glucose 146 mg/dL (74-99); Sodium 136 mmol/L (137-145)
--- NOTE | 2018-01-31 06:35 | P.CONS ---
History of Present Illness - Chief Complaint Medical debility - History of Present Illness I had the opportunity see patient for inpatient rehab consultation with regard to medical debility. He was admitted to [facility] January 25 with acute onset shortness of breath. Noted as CHF as well as new onset atrial flutter. Seen by Dr. Sneed. Later seen by Dr. Moni Levine for possible stroke. Noted head CT demonstrates white matter change as well as old right-sided lesion. Carotid Doppler with complete occlusion right common carotid and plaques on left side. Chest CT demonstrates moderate bilateral effusions, atherosclerosis and bullous emphysema. PT reports supervision for all mobility and gait 25 feet with roller walker. OT prescribed. Previous functional history as elicited patient: 73-year-old left-handed white male who is lives in one floor home alone. Retired. Describes independent with own cooking, laundry, driving and gait without device. PMD is Dr. Metz. Family history hypertension in both parents. Review of Systems Review of systems: ENT: Denies sneezes or discharge. Eyes: Denies discharge or photophobia. Cardiac: Denies chest pain or palpitation. Pulmonary: Mild or resolved shortness of breath. Gastrointestinal: Denies nausea, emesis, constipation, diarrhea. Genitourinary: Denies discharge or frequency. Musculoskeletal: Denies muscle or bone aches. Neurologic: Mild weakness. Endocrine: Denies shakes or sweats. Oncology: Denies cancers. Dermatologic: Denies rash, itching, pruritus. ALLERGY/immunology: Denies sneezes, rashes. Past Medical History Past Medical History: COPD, CVA/TIA, Hypertension History of Any Multi-Drug Resistant Organisms: None Reported Past Surgical History: Back Surgery Additional Past Surgical History / Comment(s): carotid endardectomy Past Psychological History: No Psychological Hx Reported Smoking Status: Current every day smoker Past Alcohol Use History: None Reported Past Drug Use History: None Reported - Past Family History Father Additional Family Medical History / Comment(s): father at the age of 70, sudden unclear etiology Mother Additional Family Medical History / Comment(s): mother of oral age. Patient has no siblings Medications and Allergies Home Medications Medication Instructions Recorded Confirmed Type Finasteride [Proscar] 5 mg PO DAILY 04/09/17 01/25/18 History Saw Bristow 160 mg PO HS 07/04/17 01/25/18 History Albuterol Nebulized [Ventolin 2.5 mg INHALATION Q6H PRN 01/25/18 01/25/18 History Nebulized] Aspirin 81 mg PO HS 01/25/18 01/25/18 History Atorvastatin Calcium [Lipitor] 40 mg PO HS 01/25/18 01/25/18 History Montelukast Sodium [Singulair] 10 mg PO HS 01/25/18 01/25/18 History Tamsulosin [Flomax] 0.4 mg PO DAILY 01/25/18 01/25/18 History tiZANidine HCL [tiZANidine HCL] 2 mg PO BID 01/25/18 01/25/18 History traMADol HCl [Ultram] 50 mg PO Q6H PRN 01/25/18 01/25/18 History Allergies Allergy/AdvReac Type Severity Reaction Status Date / Time venom-honey bee Allergy Anaphylaxis Verified 01/25/18 13:50 Physical Exam Vitals: Vital Signs Temp Pulse Pulse Resp BP BP Pulse Ox 01/31/18 04:00 97.0 F L 88 16 93/57 97 01/30/18 23:29 84 16 106/66 94 L 01/30/18 21:28 86 01/30/18 21:16 84 01/30/18 20:00 97.3 F L 89 16 120/90 92 L 01/30/18 16:10 78 01/30/18 15:59 72 01/30/18 15:44 98.3 F 86 20 121/67 95 01/30/18 12:00 64 01/30/18 11:52 68 01/30/18 11:37 97.4 F L 78 18 128/68 94 L 01/30/18 08:25 70 01/30/18 08:13 68 95 01/30/18 07:05 97.4 F L 85 18 115/76 91 L Intake and Output 01/30/18 01/30/18 01/31/18 14:59 22:59 06:59 Intake Total 237 100 Output Total 2900 1100 3650 Balance -6257 -863 -5510 Intake: Oral 237 100 Output: Urine 2900 1100 3650 Other: Voiding Method Indwelling Catheter Indwelling Catheter Indwelling Catheter Weight 85.7 kg Patient Weight 01/31/18 06:59 Weight 85.7 kg Skin: Atrophic, intact. General: Medium build and comfortable appearance. Head: Normocephalic, atraumatic. Eyes: Symmetric. Pupils equal round. Ears: Symmetric. Hearing within normal limits. Mouth: Clear. Neck: Supple. Carotid without bruit. Cardiac: Regular rate and rhythm. Lungs: Clear anteriorly and posteriorly. Abdomen: Soft active nontender. Extremities: Normal tone. Neurological: Mental status: Alert, cooperative, pleasant. Cranial nerves: Symmetric facial tone and trapezius. Motor: Normal strength and isolation all 4 limbs. Sensation: Intact throughout. DTRs: Symmetric and equal throughout. Mobility: Sits with minimal assistance. Results CBC & Chem 7: 01/31/18 06:03 01/30/18 06:30 Labs: Abnormal Lab Results - Last 24 Hours (Table) 01/30/18 01/30/18 01/31/18 Range/Units 06:30 06:30 06:03 Hgb 12.6 L (13.0-17.5) gm/dL Lymphocytes # 0.4 L (1.0-4.8) k/uL Sodium 134 L (137-145) mmol/L Chloride 95 L (98-107) mmol/L Carbon Dioxide 31 H (22-30) mmol/L Glucose 102 H (74-99) mg/dL Delta Bilirubin 0.4 H (0.0-0.2) mg/dL AST 78 H (17-59) U/L ALT 311 H (21-72) U/L Total Protein 5.5 L (6.3-8.2) g/dL Albumin 3.0 L (3.5-5.0) g/dL Microbiology - Last 24 Hours (Table) 01/30/18 05:25 Urine Culture - Preliminary Urine,Catheterized CT scan - chest: report reviewed (Moderate bilateral effusions, atherosclerosis and bullous emphysema.) CT Scan - head: report reviewed (White matter change and old lesion right side.) Assessment and Plan (1) Congestive heart failure Current Visit: Yes Status: Acute Code(s): I50.9 - HEART FAILURE, UNSPECIFIED SNOMED Code(s): 02612629 Plan: Impression: 1. Medical debility. 2. Congestive heart.. 3. New atrial flutter. 4. Pericardial tamponade. 5. Mental status change with history of stroke. 6. Hypertension. 7. COPD. Comments and plan: At this time PT ongoing, OT order. We'll add speech therapy. PT reports patient supervision and does not require an physical assistance and thus may be too good for inpatient rehab. Will however follow closely with yourself.
[2018-01-31] MEDS: FAMOTIDINE 20 MG TAB PO SCH ×2 (08:13→21:38)
[2018-01-31] MEDS: NICOTINE 21MG/24HR PATCH TRANSDERM SCH (08:13)
[2018-01-31] MEDS: FINASTERIDE 5 MG TAB PO SCH (08:14)
[2018-01-31] MEDS: APIXABAN 5 MG TAB PO SCH ×2 (08:14→20:21)
[2018-01-31] MEDS: guaiFENesin 600 MG TABLET.ER PO SCH ×2 (08:14→20:21)
[2018-01-31] MEDS: AMIODARONE 200 MG TAB PO SCH (08:14)
[2018-01-31] MEDS: TAMSULOSIN 0.4 MG CAP.ER.24H PO SCH (08:15)
[2018-01-31] MEDS: cefTRIAXone IN SWFI 1,000 MG/10 ML SYRINGE IVP SCH (08:17)
[2018-01-31] MEDS: IPRATROPIUM-ALBUTEROL 3 ML NEB INHALATION SCH ×4 (08:33→19:43)
[2018-01-31] MEDS: BUDESONIDE 0.5 MG/2 ML NEBU INHALATION SCH ×2 (08:33→19:43)
[2018-01-31] MEDS ORDERED: METOPROLOL SUCCINATE (ER) 50 MG TAB.ER.24H PO SCH (09:00)
--- NOTE | 2018-01-31 10:51 | P.PN ---
Subjective Patient is lying comfortably in bed. He does not appear short of breath denies chest discomfort On examination he is afebrile pulse rate in the 80s and 90s blood pressure 86/ 51 mmHg Corina sounds are reduced bilaterally bilateral rhonchorous breath sounds at sounds are regular abdomen soft nontender impression atrial flutter with RVR status post cardioversion on anticoagulation Severe cardio myopathy likely ischemic COPD exacerbation CHF exacerbation, improving Suggest Continue ELIQUIS, continue low-dose amiodarone continue by mouth Lasix continue losartan Continue metoprolol succinate Blood pressure running low and I would reduce the dose of his cardiac medications rather than start midodrine Objective - Vital Signs Vital signs: Vital Signs Temp 97 F L 01/31/18 08:00 Pulse 92 01/31/18 08:52 Resp 16 01/31/18 08:00 BP 86/51 01/31/18 08:00 Pulse Ox 98 01/31/18 08:33 Intake & Output 01/30/18 01/31/18 01/31/18 18:59 06:59 18:59 Intake Total 237 100 180 Output Total 4000 3650 Balance -3763 -3550 180 Weight 85.7 kg Intake: Oral 237 100 180 Output: Urine 4000 3650 Other: Voiding Method Indwelling Catheter Indwelling Catheter Indwelling Catheter - Labs CBC & Chem 7: 01/31/18 06:03 01/31/18 06:03 Labs: Abnormal Lab Results - Last 24 Hours (Table) 01/31/18 01/31/18 Range/Units 06:03 06:03 Lymphocytes # 0.4 L (1.0-4.8) k/uL Sodium 136 L (137-145) mmol/L Chloride 89 L (98-107) mmol/L Carbon Dioxide 37 H (22-30) mmol/L Glucose 146 H (74-99) mg/dL Microbiology - Last 24 Hours (Table) 01/30/18 05:25 Urine Culture - Preliminary Urine,Catheterized
[2018-01-31] MEDS ORDERED: FUROSEMIDE 20 MG TAB PO SCH (11:00)
[2018-01-31] MEDS: LOSARTAN 25 MG TAB PO SCH (12:22)
[2018-01-31] MEDS: MIDODRINE 5 MG TAB PO SCH ×2 (12:25→16:33)
[2018-01-31] MEDS: METOPROLOL SUCCINATE (ER) 25 MG TAB.ER.24H PO SCH (12:25)
[2018-01-31] MEDS: SPIRONOLACTONE 25 MG TAB PO SCH (12:26)
--- NOTE | 2018-01-31 12:49 | P.PN ---
Subjective Principal diagnosis: Atrial flutter with rapid ventricular rate, status post electrocardioversion, moderate pericardial effusion without tamponade this is a 72 years old male with past medical history of hypertension , recent stroke 3 months ago patient of Dr. Metz care of [facility] last admitted in September for acute gastroenteritis comes in with shortness of breath that has been getting worse for the past few weeks. He denies any nausea or vomiting, lightheadedness or dizziness, no chest pain. chest x-ray done in the ER suggestive of mild CHF, labs were positive for a BNP of 6140 with normal troponin. Initial white is obtainable floor suggestive of a heart rate of 145, blood pressure 94/67 saturated room air 91%. Patient was seen by cardiology who suggested patient has atrial flutter. Will be taken for cardioversion tomorrow. Initiated on Celebrex Patient was initiated on Lasix 80 mg twice a day after a dose of Lasix. 01/27 Patient was noted to have some confusion last night, head CT ordered shows chronic white matter ischemic changes, old watershed infarct, and no acute intracranial changes. Today confusion has improved. Hypotension has improved, blood pressure 105/84 patient underwent TAMIR and cardioversion today. He had successful electrical cardioversion to sinus rhythm, patient noted to have severe cardiomyopathy on TAMIR. TAMIR shows left ventricular cavity is dilated with severe impaired left ventricular systolic function, moderate degree of mitral regurgitation, mild degree of tricuspid regurgitation. Echocardiogram reveals ejection fraction less than 20%, moderate left ventricular hypertrophy, LA is severely dialted, and moderate pericaridal effusion. 01/28 blood pressure on the lower side today. Patient is more confused than yesterday likely secondary to delirium. He does answer questions appropriately once disoriented. Pending for today. Neurology consulted. Patient has significant occlusion of the right common carotid artery external carotid artery and internal carotid artery with retrograde flow in the right vertebral artery representing subclavian steal syndrome. He has seen vascular surgery in the past who has recommended conservative management for the above. Metoprolol dose reduced to 12.5 mg twice daily. Amiodarone initiated at 200 mg daily Lasix held as patient has low blood pressure. Pericardial effusion documented on echocardiogram appears to be chronic secondary to viral infection. 01/29: Patient was seen at bedside he seems to be more confused today, appetite seems to be decreased, sitter at bedside, patient feels weak, unsteady on standing, balance impaired. Physical therapy requested, urine culture and sensitivity requested secondary to delirium, underlying dementia cannot be ruled out, no other neurologic focal deficits noted. Patient does not have any nausea no vomiting, no fever. Vascular has evaluated him, chronic right complete occlusion carotid stenosis no surgery required him and discussed with Dr. Kennedy. Orozco catheter has been placed secondary to urinary retention, postvoid residual over at least 300 mL, Orozco catheter in place patient on Flomax 01/30: Patient was a bit more dyspneic last night, patient required Lasix IV 40 mg last night, with additional 60 mg this morning, nebulized treatments this morning, patient has some bronchospasms, consult to Dr. Nathaly Rgoers, CAT scan of the chest was requested, patient was placed on Rocephin for suspected urinary tract infection, cultures are currently pending, patient has increasing O2 requirements from 3 L this can lead to 5 L next cannula overnight, secondary to hypoxemia blood pressure remained stable at 121 systolic however he has low blood pressure around 84 systolic yesterday evening. Solu-Medrol 60 mg started for bronchospasms. 01/31 Patient was seen and evaluated today. He was noted to have large bilateral pleural effusions with multifocal subsegmental atelectasis, extensive bullous emphysematous changes, enlargement of the main pulmonary artery, extensive coronary artery calcifications, small abdominal ascities, right renal atrophy and nodularity of the left adrenal gland, and a small hiatal hernia on his CT scan. Will obtain an ultrasound of the thorax. Patient noted to be hypotensive , last reading 86/51, will treat with Midodrine 10mg TID. Physcial therapy evaluated patient today, he does not require physical assistance, thus does not meet criteria for inpatient rehab. Objective - Vital Signs Vital signs: Vital Signs Temp 97.0 F L 01/31/18 04:00 Pulse 92 01/31/18 08:52 Resp 16 01/31/18 08:00 BP 93/57 01/31/18 04:00 Pulse Ox 98 01/31/18 08:33 Intake & Output 01/30/18 01/31/18 01/31/18 18:59 06:59 18:59 Intake Total 237 100 180 Output Total 4000 3650 Balance -7493 -0500 180 Weight 85.7 kg Intake: Oral 237 100 180 Output: Urine 4000 3650 Other: Voiding Method Indwelling Catheter Indwelling Catheter Indwelling Catheter - Constitutional General appearance: Present: cooperative. Absent: no acute distress - EENT Eyes: Present: PERRLA ENT: Present: hearing grossly normal, normal oropharynx - Neck Neck: Present: normal ROM. Absent: lymphadenopathy, rigidity, thyromegaly - Respiratory Respiratory: bilateral: CTA, diminished - Cardiovascular Rhythm: regular Heart sounds: normal: S1 Abnormal Heart Sounds: Present: systolic murmur - Gastrointestinal General gastrointestinal: Present: normal bowel sounds. Absent: distended, organomegaly, tenderness - Integumentary Integumentary: Present: normal - Neurologic Neurologic: Present: CNII-XII intact. Absent: focal deficits - Musculoskeletal Musculoskeletal: Present: generalized weakness, strength equal bilaterally - Psychiatric Psychiatric: Present: A&O x's 3 - Labs CBC & Chem 7: 01/31/18 06:03 01/31/18 06:03 Labs: Abnormal Lab Results - Last 24 Hours (Table) 01/31/18 01/31/18 Range/Units 06:03 06:03 Lymphocytes # 0.4 L (1.0-4.8) k/uL Sodium 136 L (137-145) mmol/L Chloride 89 L (98-107) mmol/L Carbon Dioxide 37 H (22-30) mmol/L Glucose 146 H (74-99) mg/dL Microbiology - Last 24 Hours (Table) 01/30/18 05:25 Urine Culture - Preliminary Urine,Catheterized Assessment and Plan Plan: 1 Acute CHF systolic improving. Previous echo was normal, there is reduction in ejection fraction in this admission with an EF <20%. TAMIR shows severe cardiomyopathy with moderate pericardial effusion which is likely chronic. Diuretics restarted secondary to hypoxemia and dyspnea, IV Lasix which would be transitioned to spironolactone #2 hypotention likely secondary to dehydration and atrial flutter, blood pressure has improved slightly with fluids. Hydrated and stabilized, Lasix has to be restarted secondary to dyspnea and pleural effusion, CHF metoprolol dose reduced to 12.5 mg twice a day, Midodrine 10mg TID added. #3 New atrial flutter s/p cardioversion - continue metoprolol 12.5 mg PO BID Patient underwent cardioversion to sinus rhythm. Continue eliquis 5 mg twice a day. #4 hypertension-continue home medications including metoprolol. 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 Follows with Dr. Kennedy. Patient also follow Dr. Jones who recommended conservative management #10 GI prophylaxis Pepcid 20 mg po twice a day #11 DVT prophylaxis on eliquis #12 code status full code # 13 change in mental status likely secondary to delirium. CT head negative for any acute abnormality. EEG does not show any focal, lateralized, or epileptiform abnormalities. urinalysis obtained 01/29, has some pyuria, urine cultures were sent, IV antibiotics Rocephin started and transition to orals #14 impaired balance, physical therapy and occupational therapies to see the patient, skilled therapies expected, patient does not meet criteria for inpatient, will plan for subacute upon discharge #15, large pericardial effusion, moderate, no plans for surgical intervention patient currently is on diuretics cardiology following closely, pulmonary consulted Dr. Guanaco Rogers, u/s of thorax ordered #16 mild routine malnutrition, patient has diminished appetite, nutritional supplementation and requested #17 acute transaminitis most likely secondary to right-sided heart failure, levels are trending downward #18 acute renal insufficiency CK D stage II most likely secondary to postobstructive issues, along with ATN with hypotension,, monitor for post void residual after Orozco catheter would be discontinued, continue to monitor chemistries #19 pyuria with BPH and lower urinary tract symptomatology, causing delirium, patient will be started on IV Rocephin, cephalosporins oral on discharge #20 COPD exacerbation, patient was started on Solu-Medrol IV, and nebulized albuterol Atrovent, #21 abdominal ascites noted on CAT scan, most likely secondary to hypoalbuminemia, however other pathologies are not excluded, IV Lasix, continue to monitor #22 Coronary artery calcifications,/CAD, #20 discharge planning, therapies with guide discharge
--- NOTE | 2018-01-31 13:25 | US ---
EXAMINATION TYPE: US chest DATE OF EXAM: 01/31/2018 COMPARISON: CT 01/30/2018 CLINICAL HISTORY: 73-year-old male pleural effusion. Technique: Sonographic imaging along the posterior lower hemithoraces for assessment of pleural effus ion. FINDINGS: Right Pleural Effusion fluid size: 7.2 cm Right skin surface to fluid distance: 2.6 cm Left Pleural Effusion fluid size: 7.3 cm Left skin surface to fluid distance: 3.1 cm Right side marked for possible thoracentesis outside the dept. Left side marked for possible thoracentesis outside the dept. Pulmonologists are able to review the images in the patient?s EMR. IMPRESSIONS: Moderate bilateral pleural effusions. Underlying adjacent atelectatic lung. Bilateral markings perfor med.
--- NOTE | 2018-01-31 14:41 | P.PN ---
Subjective Progress Note Date: 01/31/18 HPI: is a 73-year-old male who presented to [facility] on 2017 at that time he had been complaining of shortness of breath and had been getting worse over the next couple of weeks prior to coming in. He does have history of COPD and has been taking his nebulizer treatments and albuterol. Today he is quite confused and shortness breath as well. He denies any chest pain at this time. 01/31/18- patient has been seen and examined and evaluated on rounds. He is resting up in bed on 3 L of supplemental oxygen via nasal cannula. He has been up walking in the room. He was evaluated for possible inpatient rehab and is not a candidate at this time. He does not use any home oxygen. He has been using his incentive spirometer and pulling volumes of approximately 1000 ML's. Does have a congested cough that has been nonproductive. Patient did undergo a ultrasound of the chest this morning which did show bilateral pleural effusions right measuring 7.2 cm left measuring 7.3 cm. Objective - Vital Signs Vital signs: Vital Signs Temp 97.1 F L 01/31/18 12:00 Pulse 92 01/31/18 12:06 Resp 18 01/31/18 12:00 BP 100/64 01/31/18 12:00 Pulse Ox 93 L 01/31/18 12:00 Intake & Output 01/30/18 01/31/18 01/31/18 18:59 06:59 18:59 Intake Total 237 100 360 Output Total 4000 3650 1600 Balance -1559 -7432 -7674 Weight 85.7 kg Intake: Oral 237 100 360 Output: Urine 4000 3650 1600 Other: Voiding Method Indwelling Catheter Indwelling Catheter Indwelling Catheter - Exam GENERAL EXAM: Alert, comfortable in no apparent distress. HEAD: Normocephalic. EYES: Normal reaction of pupils, equal size. NOSE: Clear with pink turbinates. THROAT: No erythema or exudates. NECK: No masses, no JVD. CHEST: No chest wall deformity. LUNGS: Lungs noted to have decreased air entry throughout. Bases diminished CVS: S1 and S2 normal with no audible mumurs, regular rhythm. ABDOMEN: No hepatosplenomegaly, normal bowel sounds, no guarding or rigidity. EXTREMITIES: No edema noted, pedal pulses palpable. CENTRAL NERVOUS SYSTEM: No focal deficits, tone is normal in all 4 extremities. - Labs CBC & Chem 7: 01/31/18 06:03 01/31/18 06:03 Labs: Abnormal Lab Results - Last 24 Hours (Table) 01/31/18 01/31/18 Range/Units 06:03 06:03 Lymphocytes # 0.4 L (1.0-4.8) k/uL Sodium 136 L (137-145) mmol/L Chloride 89 L (98-107) mmol/L Carbon Dioxide 37 H (22-30) mmol/L Glucose 146 H (74-99) mg/dL Microbiology - Last 24 Hours (Table) 01/30/18 05:25 Urine Culture - Preliminary Urine,Catheterized Group D Enterococcus Assessment and Plan Assessment: Assessment COPD with acute exacerbation Bilateral pleural effusions Chronic moderate pericardial effusion Congestive heart failure systolic with acute overload CAD UTI Metabolic encephalopathy Abdominal ascites Medical debility Plan Medications have been reviewed and will be continued as ordered. Continue with diuresis. Ultrasound of bilateral lungs has been reviewed. CT of chest reviewed. Consult nephro and try diuresis if no response then will attempt thoracenteiss if needed in the future. Continue with pulmonary hygiene, coughing and deep breathing exercises, and supportive care. Supplemental oxygen to maintain oxygen saturations of 92% or better. Continue nebulizer treatments. GI and DVT prophylaxis. PT/OT. We will continue to monitor labs/results and adjust treatment as necessary. Further recommendations pending. I performed an examination of the patient and discussed their management with the nurse practitioner. I have reviewed the nurse practitioner's note and agree with the documented findings and plan of care.
[2018-01-31] MEDS: FUROSEMIDE 40 MG TAB PO SCH (16:30)
[2018-01-31] MEDS: ATORVASTATIN 40 MG TAB PO SCH (20:21)
[2018-01-31] MEDS: MONTELUKAST 10 MG TAB PO SCH (20:21)
[2018-02-01] MEDS: methylPREDNISolone SOD SUCCI 125 MG/2 ML VIAL IV SCH ×4 (05:11→23:54)
[2018-02-01] MEDS: MIDODRINE 5 MG TAB PO SCH ×3 (06:22→17:36)
[2018-02-01 07:08] LABS: Basophils % (A) 0 %; Eosinophils % (A) 0 %; HCT 43.5 % (39.0-53.0); HGB 13.3 gm/dL (13.0-17.5); Hypochromasia Marked; Lymphocytes # (A) 0.4 k/uL (1.0-4.8); Lymphocytes % (A) 3 %; MCH 26.3 pg (25.0-35.0); MCHC 30.5 g/dL (31.0-37.0); MCV 86.2 fL (80.0-100.0); Mean Platelet Volume 9.1; Monocytes # (A) 0.4 k/uL (0-1.0); Monocytes % (A) 3 %; Neutrophils # (A) 12.2 k/uL (1.3-7.7); Neutrophils % (A) 93 %; Platelet Count 248 k/uL (150-450); RBC 5.04 m/uL (4.30-5.90); RDW 15.1 % (11.5-15.5); WBC 13.2 k/uL (3.8-10.6)
[2018-02-01 07:20] LABS: Anion Gap 12 mmol/L; Blood Urea Nitrogen 20 mg/dL (9-20); Calcium 9.2 mg/dL (8.4-10.2); Carbon Dioxide 33 mmol/L (22-30); Chloride 89 mmol/L (98-107); Glucose 121 mg/dL (74-99); Potassium 4.2 mmol/L (3.5-5.1); Sodium 134 mmol/L (137-145)
[2018-02-01] MEDS: guaiFENesin 600 MG TABLET.ER PO SCH ×2 (07:38→20:01)
[2018-02-01] MEDS: FUROSEMIDE 40 MG TAB PO SCH ×2 (07:38→17:36)
[2018-02-01] MEDS: NICOTINE 21MG/24HR PATCH TRANSDERM SCH (07:38)
[2018-02-01] MEDS: AMIODARONE 200 MG TAB PO SCH (07:38)
[2018-02-01] MEDS: APIXABAN 5 MG TAB PO SCH ×2 (07:38→20:01)
[2018-02-01] MEDS: TAMSULOSIN 0.4 MG CAP.ER.24H PO SCH (07:38)
[2018-02-01] MEDS: FINASTERIDE 5 MG TAB PO SCH (07:39)
[2018-02-01] MEDS: FAMOTIDINE 20 MG TAB PO SCH ×2 (07:39→20:01)
[2018-02-01] MEDS: METOPROLOL SUCCINATE (ER) 25 MG TAB.ER.24H PO SCH (07:39)
[2018-02-01] MEDS: SPIRONOLACTONE 25 MG TAB PO SCH (07:39)
[2018-02-01] MEDS: LOSARTAN 25 MG TAB PO SCH (07:40)
[2018-02-01] MEDS: cefTRIAXone IN SWFI 1,000 MG/10 ML SYRINGE IVP SCH (07:43)
[2018-02-01] MEDS: IPRATROPIUM-ALBUTEROL 3 ML NEB INHALATION SCH ×4 (08:38→21:02)
[2018-02-01] MEDS: BUDESONIDE 0.5 MG/2 ML NEBU INHALATION SCH ×2 (08:38→21:03)
--- NOTE | 2018-02-01 10:52 | PN ---
PROGRESS NOTE Nathan Allen was seen again on 02/01/2018. He has remained hemodynamically stable. He is more awake and alert and is not confused today. He is not in any respiratory distress. His blood pressure is 109/72, respiratory rate of 18, pulse rate of 90, temperature 97.5, O2 saturation on 3 L by nasal cannula is 93%. HEENT is unremarkable. Chest reveals decreased breath sounds at the bases, occasional wheeze only on forced expiration. Cardiovascular system reveals an S1, S2. Abdomen is soft. There is trace edema. Urine culture showing greater than 100,000 group D enterococcus. White count is 13.2, hemoglobin of 13.3. Sodium 134, potassium 4.2, chloride 89, bicarb 33. BUN 20, creatinine 0.8. IMPRESSION AT THIS TIME: 1. Congestive heart failure with bilateral pleural effusions. 2. Bronchospasm. 3. Possible aspiration pneumonia. 4. Urinary tract infection. Continue Rocephin, steroids, diuretics, Singulair. Agree with possible discharge planning on a tapering dose of systemic steroids. Patient's prognosis at this time is fair. MMODL / IJN: [id number] /
--- NOTE | 2018-02-01 11:20 | P.PN ---
Subjective Patient is doing better. No dizziness lightheadedness mildly short of breath but taking a breathing treatment. Overall he seems to have improved since admission and maintains sinus rhythm with normal heart rates Afebrile 97.5F, pulse rate in the 90s, blood pressure 109/72 mmHg Breath sounds are clearer now with some crackles at the bases air entry has improved Heart sounds S1 and S2 are normal and regular Abdomen soft nontender Extended is warm no edema Labs reviewed white count 13.2 thousand, sodium 134, potassium 4.2, normal kidney function Impression Acute on chronic heart failure, improving LV systolic dysfunction Atrial flutter with RVR Normal kidney function Suggest Anticoagulate long-term Maximize heart failure medications Continue low-dose amiodarone Continue 7 Continue atorvastatin Continue Lasix 40 g twice daily Continue losartan 12.5 g by mouth daily Continue metoprolol succinate 25 mg by mouth daily Objective - Vital Signs Vital signs: Vital Signs Temp 97.5 F L 02/01/18 08:00 Pulse 96 02/01/18 08:53 Resp 18 02/01/18 08:00 BP 109/72 02/01/18 08:00 Pulse Ox 93 L 02/01/18 08:00 Intake & Output 01/31/18 02/01/18 02/01/18 18:59 06:59 18:59 Intake Total 360 0 180 Output Total 1600 1000 Balance -1240 -1000 180 Weight 84.4 kg Intake: Oral 360 0 180 Output: Urine 1600 1000 Other: Voiding Method Indwelling Catheter Indwelling Catheter # Voids 1 - Labs CBC & Chem 7: 02/01/18 06:24 02/01/18 06:24 Labs: Abnormal Lab Results - Last 24 Hours (Table) 02/01/18 02/01/18 Range/Units 06:24 06:24 WBC 13.2 H (3.8-10.6) k/uL MCHC 30.5 L (31.0-37.0) g/dL Neutrophils # 12.2 H (1.3-7.7) k/uL Lymphocytes # 0.4 L (1.0-4.8) k/uL Sodium 134 L (137-145) mmol/L Chloride 89 L (98-107) mmol/L Carbon Dioxide 33 H (22-30) mmol/L Glucose 121 H (74-99) mg/dL Microbiology - Last 24 Hours (Table) 01/30/18 05:25 Urine Culture - Preliminary Urine,Catheterized Group D Enterococcus
--- NOTE | 2018-02-01 11:41 | P.PN ---
Subjective this is a 72 years old male with past medical history of hypertension , recent stroke 3 months ago patient of Dr. Metz care of guardian Etelvina last admitted in September for acute gastroenteritis comes in with shortness of breath that has been getting worse for the past few weeks. He denies any nausea or vomiting, lightheadedness or dizziness, no chest pain. chest x-ray done in the ER suggestive of mild CHF, labs were positive for a BNP of 6140 with normal troponin. Initial white is obtainable floor suggestive of a heart rate of 145, blood pressure 94/67 saturated room air 91%. Patient was seen by cardiology who suggested patient has atrial flutter. Will be taken for cardioversion tomorrow. Initiated on Celebrex Patient was initiated on Lasix 80 mg twice a day after a dose of Lasix. 01/27 Patient was noted to have some confusion last night, head CT ordered shows chronic white matter ischemic changes, old watershed infarct, and no acute intracranial changes. Today confusion has improved. Hypotension has improved, blood pressure 105/84 patient underwent TAMIR and cardioversion today. He had successful electrical cardioversion to sinus rhythm, patient noted to have severe cardiomyopathy on TAMIR. TAMIR shows left ventricular cavity is dilated with severe impaired left ventricular systolic function, moderate degree of mitral regurgitation, mild degree of tricuspid regurgitation. Echocardiogram reveals ejection fraction less than 20%, moderate left ventricular hypertrophy, LA is severely dialted, and moderate pericaridal effusion. 01/28 blood pressure on the lower side today. Patient is more confused than yesterday likely secondary to delirium. He does answer questions appropriately once disoriented. Pending for today. Neurology consulted. Patient has significant occlusion of the right common carotid artery external carotid artery and internal carotid artery with retrograde flow in the right vertebral artery representing subclavian steal syndrome. He has seen vascular surgery in the past who has recommended conservative management for the above. Metoprolol dose reduced to 12.5 mg twice daily. Amiodarone initiated at 200 mg daily Lasix held as patient has low blood pressure. Pericardial effusion documented on echocardiogram appears to be chronic secondary to viral infection. 01/29: Patient was seen at bedside he seems to be more confused today, appetite seems to be decreased, sitter at bedside, patient feels weak, unsteady on standing, balance impaired. Physical therapy requested, urine culture and sensitivity requested secondary to delirium, underlying dementia cannot be ruled out, no other neurologic focal deficits noted. Patient does not have any nausea no vomiting, no fever. Vascular has evaluated him, chronic right complete occlusion carotid stenosis no surgery required him and discussed with Dr. Kennedy. Orozco catheter has been placed secondary to urinary retention, postvoid residual over at least 300 mL, Orozco catheter in place patient on Flomax 01/30: Patient was a bit more dyspneic last night, patient required Lasix IV 40 mg last night, with additional 60 mg this morning, nebulized treatments this morning, patient has some bronchospasms, consult to Dr. Nathaly Rogers, CAT scan of the chest was requested, patient was placed on Rocephin for suspected urinary tract infection, cultures are currently pending, patient has increasing O2 requirements from 3 L this can lead to 5 L next cannula overnight, secondary to hypoxemia blood pressure remained stable at 121 systolic however he has low blood pressure around 84 systolic yesterday evening. Solu-Medrol 60 mg started for bronchospasms. 01/31 Patient was seen and evaluated today. He was noted to have large bilateral pleural effusions with multifocal subsegmental atelectasis, extensive bullous emphysematous changes, enlargement of the main pulmonary artery, extensive coronary artery calcifications, small abdominal ascities, right renal atrophy and nodularity of the left adrenal gland, and a small hiatal hernia on his CT scan. Will obtain an ultrasound of the thorax. Patient noted to be hypotensive , last reading 86/51, will treat with Midodrine 10mg TID. Physcial therapy evaluated patient today, he does not require physical assistance, thus does not meet criteria for inpatient rehab. 02/01: Patient was evaluated today, he was noted to be resting in bed with family at bedside. Patient was encouraged to ambulate. Will discontinue Orozco catheter tomorrow. Ultrasound of the thorax revealed moderate bilateral pleural effusions, pulmonology's consult appreciated. Recommends to continue with diuresis, if no response, then possible thoracentesis. Encouraged to use incentive spirometer at the bedside. We'll repeat a chest x-ray tomorrow. Objective - Vital Signs Vital signs: Vital Signs Temp 97.5 F L 02/01/18 08:00 Pulse 96 02/01/18 08:53 Resp 18 02/01/18 08:00 BP 109/72 02/01/18 08:00 Pulse Ox 93 L 03/13/18 08:00 Intake & Output 01/31/18 02/01/18 02/01/18 18:59 06:59 18:59 Intake Total 360 0 180 Output Total 1600 1000 Balance -1240 -1000 180 Weight 84.4 kg Intake: Oral 360 0 180 Output: Urine 1600 1000 Other: Voiding Method Indwelling Catheter Indwelling Catheter # Voids 1 - Exam - Constitutional General appearance: cooperative, no acute distress, obese - EENT Eyes: anicteric sclerae, PERRLA, normal appearance ENT: hearing grossly normal - Neck Neck: no lymphadenopathy, normal ROM, no other, no rigidity, no stridor, no thyromegaly - Respiratory Respiratory: bilateral: CTA with bibasilar crackles present on examination, negative: diminished, dullnes - Cardiovascular Rhythm: regular Heart sounds: normal: S1, S2 Abnormal Heart Sounds: no systolic murmur, no diastolic murmur, no rub, no S3 Gallop, no S4 Gallop, no click, no other - Gastrointestinal General gastrointestinal: normal bowel sounds, soft - Integumentary Integumentary: no rash - Neurologic Neurologic: CNII-XII intact - Musculoskeletal Musculoskeletal: strength equal bilaterally - Psychiatric Psychiatric: A&O x's 3, appropriate affect - Labs CBC & Chem 7: 02/01/18 06:24 02/01/18 06:24 Labs: Abnormal Lab Results - Last 24 Hours (Table) 02/01/18 02/01/18 Range/Units 06:24 06:24 WBC 13.2 H (3.8-10.6) k/uL MCHC 30.5 L (31.0-37.0) g/dL Neutrophils # 12.2 H (1.3-7.7) k/uL Lymphocytes # 0.4 L (1.0-4.8) k/uL Sodium 134 L (137-145) mmol/L Chloride 89 L (98-107) mmol/L Carbon Dioxide 33 H (22-30) mmol/L Glucose 121 H (74-99) mg/dL Microbiology - Last 24 Hours (Table) 01/30/18 05:25 Urine Culture - Preliminary Urine,Catheterized Group D Enterococcus Assessment and Plan Plan: #1 Acute CHF systolic improving. Previous echo was normal, there is reduction in ejection fraction in this admission with an EF <20%. TAMIR shows severe cardiomyopathy with moderate pericardial effusion which is likely chronic. Diuretics restarted secondary to hypoxemia and dyspnea. Receiving Lasix 40 mg by mouth twice a day. #2 hypotention likely secondary to dehydration and atrial flutter, blood pressure has improved slightly with fluids. Hydrated and stabilized, Lasix has to be restarted secondary to dyspnea and pleural effusion, CHF metoprolol dose reduced to 12.5 mg twice a day, Midodrine 10mg TID added. Blood pressure stable. #3 New atrial flutter s/p cardioversion - continue metoprolol 12.5 mg PO BID Patient underwent cardioversion to sinus rhythm. Continue eliquis 5 mg twice a day. #4 hypertension-continue home medications including metoprolol. 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 Follows with Dr. Kennedy. Patient also follow Dr. Jones who recommended conservative management #10 GI prophylaxis Pepcid 20 mg po twice a day #11 DVT prophylaxis on eliquis #12 code status full code # 13 change in mental status likely secondary to delirium. CT head negative for any acute abnormality. EEG does not show any focal, lateralized, or epileptiform abnormalities. urinalysis obtained 01/29, has some pyuria, urine cultures were sent, IV antibiotics Rocephin started and transition to orals #14 impaired balance, physical therapy and occupational therapies to see the patient, skilled therapies expected, patient does not meet criteria for inpatient, will plan for subacute upon discharge #15 large pericardial effusion, moderate, no plans for surgical intervention patient currently is on diuretics cardiology following closely, pulmonary consulted Dr. Guanaco Rogers, u/s of thorax ordered #16 mild routine malnutrition, patient has diminished appetite, nutritional supplementation and requested #17 acute transaminitis most likely secondary to right-sided heart failure, levels are trending downward #18 acute renal insufficiency CK D stage II most likely secondary to postobstructive issues, along with ATN with hypotension,, monitor for post void residual after Orozco catheter would be discontinued, continue to monitor chemistries #19 pyuria with BPH and lower urinary tract symptomatology, causing delirium, patient will be started on IV Rocephin, cephalosporins oral on discharge #20 COPD exacerbation, patient was started on Solu-Medrol IV, and nebulized albuterol Atrovent, #21 abdominal ascites noted on CAT scan, most likely secondary to hypoalbuminemia, however other pathologies are not excluded, IV Lasix, continue to monitor #22 Coronary artery calcifications,/CAD, #20 discharge planning, therapies with guide discharge The above impression and plan of care have been discussed and directed by signing physician. Jocelyne Khan nurse practitioner acting as scribe for signing physician.
[2018-02-01] MEDS: MONTELUKAST 10 MG TAB PO SCH (20:01)
[2018-02-01] MEDS: ATORVASTATIN 40 MG TAB PO SCH (20:01)
--- NOTE | 2018-02-01 21:46 | CONS ---
CONSULTATION DATE OF CONSULTATION: 02/01/18 REASON FOR CONSULT: Diuretic management. HISTORY OF PRESENT ILLNESS: Patient is a 73-year-old male who was initially admitted to the hospital on 01/26/2018. He was admitted with shortness of breath. The patient was in CHF/fluid overload. He has been diuresed. Currently maintained on Lasix 40 mg b.i.d. Blood pressure has been on the lower side. Patient is maintained on midodrine 10 mg t.i.d. Serum creatinine was at 1.16 mg/dL. It peaked at 1.5. It is now down to 0.8 mg/dL. The patient has an indwelling Friend catheter with 24 hour urine output noted to be 7.6 L. PAST MEDICAL HISTORY: Chronic obstructive pulmonary disease, history of CVA, TIA, hypertension. Cardiomyopathy: Current echocardiogram shows ejection fraction about 30%. PAST SURGICAL HISTORY: Carotid endarterectomy, back surgery. SOCIAL HISTORY: Positive for smoking. No history of drug abuse or alcohol abuse. EXAMINATION: Patient is currently comfortable awake. He is not in any acute distress. Blood pressure is 108/70, heart rate 88 per minute. Patient is afebrile. Examination of the heart S1, S2. Examination of the lungs bilateral breath sounds are heard. Decreased breath sounds at bases. Abdomen is soft, nontender. Exam of lower extremity shows chronic skin changes. Edema 1+ bilaterally. CEMETERY WARDEN exam is grossly intact. LAB: Shows sodium 134, potassium 4.2, BUN of 20, serum creatinine 0.8, hemoglobin 13.3 g/dL. UA shows trace protein, WBCs 14, RBCs 18. ASSESSMENT: 1. Acute kidney injury with creatinine of 1.5 mg/dL on January 28 cardiorenal associated with diuresis, currently improved. The patient continues to have a large urine output. He is currently on oral Lasix at 40 mg b.i.d. and he has not received any IV Lasix recently. I will continue with the current dose of Lasix and repeat labs in a.m. 2. Cardiomyopathy, ejection fraction 30%. 3. Chronic obstructive pulmonary disease, currently stable. 4. Possible aspiration pneumonia. 5. Urinary tract infection. Urine culture growing enterococcus faecalis. 6. History of benign prostatic hypertrophy, maintained on Proscar. PLAN: Continue current dose of Lasix. Monitor for metabolic alkalosis. If the patient continues to have more than 5 L of urine output, we will decrease his diuretics. Thank you for the consultation. We will continue to follow the patient with you during his hospitalization. LUIS / LUZMAN: [id number] /
[2018-02-02] MEDS: MIDODRINE 5 MG TAB PO SCH ×3 (05:57→17:20)
[2018-02-02] MEDS: methylPREDNISolone SOD SUCCI 125 MG/2 ML VIAL IV SCH (05:58)
[2018-02-02] MEDS: FINASTERIDE 5 MG TAB PO SCH (08:25)
[2018-02-02] MEDS: TAMSULOSIN 0.4 MG CAP.ER.24H PO SCH (08:25)
[2018-02-02] MEDS: FUROSEMIDE 40 MG TAB PO SCH ×2 (08:26→17:20)
[2018-02-02] MEDS: LOSARTAN 25 MG TAB PO SCH (08:26)
[2018-02-02] MEDS: FAMOTIDINE 20 MG TAB PO SCH ×2 (08:26→22:08)
[2018-02-02] MEDS: APIXABAN 5 MG TAB PO SCH ×2 (08:26→22:08)
[2018-02-02] MEDS: METOPROLOL SUCCINATE (ER) 25 MG TAB.ER.24H PO SCH (08:26)
[2018-02-02] MEDS: guaiFENesin 600 MG TABLET.ER PO SCH ×2 (08:26→22:08)
[2018-02-02] MEDS: cefTRIAXone IN SWFI 1,000 MG/10 ML SYRINGE IVP SCH (08:27)
[2018-02-02] MEDS: SPIRONOLACTONE 25 MG TAB PO SCH (08:27)
[2018-02-02] MEDS: AMIODARONE 200 MG TAB PO SCH (08:27)
[2018-02-02] MEDS: NICOTINE 21MG/24HR PATCH TRANSDERM SCH (08:27)
[2018-02-02] MEDS: IPRATROPIUM-ALBUTEROL 3 ML NEB INHALATION SCH ×4 (08:44→20:08)
[2018-02-02] MEDS: BUDESONIDE 0.5 MG/2 ML NEBU INHALATION SCH ×2 (08:44→20:06)
[2018-02-02] MEDS: traMADol 50 MG TAB PO PRN (10:34)
--- NOTE | 2018-02-02 13:04 | XR ---
EXAMINATION TYPE: XR chest 2V DATE OF EXAM: 02/02/2018 COMPARISON: 01/26/2018 INDICATION: Short of breath TECHNIQUE: Frontal and lateral views of the chest are obtained. FINDINGS: The heart size is normal. The pulmonary vasculature is normal. Mild bibasilar infiltrates are present. Small bilateral pleural effusions are present.. IMPRESSION: 1. Small bilateral pleural effusions with minimal bibasilar infiltrates likely compressive atelectasi s. Findings appear stable.
--- NOTE | 2018-02-02 13:35 | P.PN ---
<Tata Kelly E - Last Filed: 02/02/18 13:31> Subjective Progress Note Date: 02/02/18 HPI: is a 73-year-old male who presented to [facility] on 2017 at that time he had been complaining of shortness of breath and had been getting worse over the next couple of weeks prior to coming in. He does have history of COPD and has been taking his nebulizer treatments and albuterol. Today he is quite confused and shortness breath as well. He denies any chest pain at this time. 01/31/18- patient has been seen and examined and evaluated on rounds. He is resting up in bed on 3 L of supplemental oxygen via nasal cannula. He has been up walking in the room. He was evaluated for possible inpatient rehab and is not a candidate at this time. He does not use any home oxygen. He has been using his incentive spirometer and pulling volumes of approximately 1000 ML's. Does have a congested cough that has been nonproductive. Patient did undergo a ultrasound of the chest this morning which did show bilateral pleural effusions right measuring 7.2 cm left measuring 7.3 cm. 02/01/18- please see Dr. Jono Jauregui note 02/02/18- patient is being seen examined and evaluated today on rounds. Patient sitting up in bed on 2 L of supplemental oxygen via nasal cannula. Chest x-ray from this morning does reveal small bilateral pleural effusions. He does have some shortness of breath with exertion however it is improving. He denies any cough or congestion at this time. Steroid to place continues to be tapered. Objective - Vital Signs Vital signs: Vital Signs Temp 96.9 F L 02/02/18 08:00 Pulse 79 02/02/18 13:17 Resp 18 02/02/18 08:00 BP 97/51 02/02/18 08:00 Pulse Ox 95 02/02/18 08:00 Intake & Output 02/01/18 02/02/18 02/02/18 18:59 06:59 18:59 Intake Total 180 280 360 Output Total 1200 3225 300 Balance -1020 -2945 60 Weight 79.9 kg Intake: Oral 180 280 360 Output: Urine 1200 3225 300 Straight 1425 Other: Voiding Method Indwelling Catheter Indwelling Catheter Indwelling Catheter - Exam GENERAL EXAM: Alert, comfortable in no apparent distress. HEAD: Normocephalic. EYES: Normal reaction of pupils, equal size. NOSE: Clear with pink turbinates. THROAT: No erythema or exudates. NECK: No masses, no JVD. CHEST: No chest wall deformity. LUNGS: Lungs noted to have decreased air entry throughout. Bases diminished CVS: S1 and S2 normal with no audible mumurs, regular rhythm. ABDOMEN: No hepatosplenomegaly, normal bowel sounds, no guarding or rigidity. EXTREMITIES: No edema noted, pedal pulses palpable. CENTRAL NERVOUS SYSTEM: No focal deficits, tone is normal in all 4 extremities. - Labs CBC & Chem 7: 02/01/18 06:24 02/01/18 06:24 Labs: Microbiology - Last 24 Hours (Table) 01/30/18 05:25 Urine Culture - Final Urine,Catheterized Enterococcus faecalis Assessment and Plan Assessment: Assessment COPD with acute exacerbation Bilateral pleural effusions Chronic moderate pericardial effusion Congestive heart failure systolic with acute overload CAD UTI Metabolic encephalopathy Abdominal ascites Medical debility Plan Medications have been reviewed and will be continued as ordered. Steroid taper. Continue with diuresis. Ultrasound of bilateral lungs has been reviewed. CT of chest reviewed. Nephrology consultation patient is diuresing well. Chest x-ray is reviewed. Continue with pulmonary hygiene, coughing and deep breathing exercises, and supportive care. Supplemental oxygen to maintain oxygen saturations of 92% or better. Continue nebulizer treatments. GI and DVT prophylaxis. PT/OT. We will continue to monitor labs/results and adjust treatment as necessary. Further recommendations pending. I performed an examination of the patient and discussed their management with the nurse practitioner. I have reviewed the nurse practitioner's note and agree with the documented findings and plan of care. <Olimpia Parsons A - Last Filed: 02/02/18 14:59> Objective - Vital Signs Vital signs: Vital Signs Temp 96.9 F L 02/02/18 08:00 Pulse 79 02/02/18 13:17 Resp 18 02/02/18 08:00 BP 97/51 02/02/18 08:00 Pulse Ox 95 02/02/18 08:00 Intake & Output 02/01/18 02/02/18 02/02/18 18:59 06:59 18:59 Intake Total 180 280 360 Output Total 1200 3225 300 Balance -1020 -7530 60 Weight 79.9 kg Intake: Oral 180 280 360 Output: Urine 1200 3225 300 Straight 1425 Other: Voiding Method Indwelling Catheter Indwelling Catheter Indwelling Catheter - Labs CBC & Chem 7: 02/01/18 06:24 02/01/18 06:24 Labs: Microbiology - Last 24 Hours (Table) 01/30/18 05:25 Urine Culture - Final Urine,Catheterized Enterococcus faecalis Assessment and Plan Assessment: Patient is asking if he still needs to wear the oxygen. He is currently on room air with the oxygen lying in the bed next to him. His O2 saturation is checked and is 92%. The patient is aware that when he is resting he does not need the oxygen however he will need it with sleep and ambulation. We will do a home O2 evaluation prior to discharge. Patient is planning to go to rehab. Taper steroids. ~Olimpia Parsons DO
[2018-02-02] MEDS ORDERED: methylPREDNISolone SOD SUCCI 40 MG/ML 1 ML VIAL IV SCH (21:00)
--- NOTE | 2018-02-02 21:53 | PN ---
PROGRESS NOTE Patient is seen for followup for fluid overload. He is currently maintained on Lasix at 40 mg p.o. b.i.d. He is also on Aldactone. The patient continues to have good urine output. A 24 hour urine output was about 4 L. The patient has an indwelling Friend catheter. EXAMINATION: He is comfortable, awake. He is not in any acute distress. Blood pressure was 102/68, previously was 80/50. Examination of the heart S1, S2. Examination lungs bilateral breath sounds are heard. Abdomen is soft, nontender. Examination lower extremity shows improved edema. Chronic skin changes are noted. LAB: Show sodium 134, potassium 4.2, serum creatinine 0.80, and hemoglobin was 13.3 g/dL. ASSESSMENT: 1. Acute kidney injury, mainly cardiorenal associated with diuresis, currently improved. 2. Volume overload now improved. May continue with current dose of Lasix. Urine output is down to about 4 L as opposed to 7 L previously. There is no significant metabolic alkalosis. PLAN: Continue current dose of Lasix. MMODL / IJN: [id number] /
[2018-02-02] MEDS: MONTELUKAST 10 MG TAB PO SCH (22:08)
[2018-02-02] MEDS: ATORVASTATIN 40 MG TAB PO SCH (22:08)
[2018-02-03] MEDS: traMADol 50 MG TAB PO PRN ×2 (03:42→23:45)
[2018-02-03] MEDS: MIDODRINE 5 MG TAB PO SCH ×3 (06:43→18:42)
[2018-02-03] MEDS: BUDESONIDE 0.5 MG/2 ML NEBU INHALATION SCH ×2 (08:21→20:24)
[2018-02-03] MEDS: IPRATROPIUM-ALBUTEROL 3 ML NEB INHALATION SCH ×4 (08:21→20:24)
[2018-02-03] MEDS: NICOTINE 21MG/24HR PATCH TRANSDERM SCH (08:53)
[2018-02-03] MEDS: AMIODARONE 200 MG TAB PO SCH (08:54)
[2018-02-03] MEDS: guaiFENesin 600 MG TABLET.ER PO SCH ×2 (08:54→20:05)
[2018-02-03] MEDS: APIXABAN 5 MG TAB PO SCH ×2 (08:54→20:04)
[2018-02-03] MEDS: FAMOTIDINE 20 MG TAB PO SCH ×2 (08:54→20:04)
[2018-02-03] MEDS: FINASTERIDE 5 MG TAB PO SCH (08:54)
[2018-02-03] MEDS: predniSONE 20 MG TAB PO SCH (08:55)
[2018-02-03] MEDS: TAMSULOSIN 0.4 MG CAP.ER.24H PO SCH (08:55)
--- NOTE | 2018-02-03 09:04 | P.PN ---
Subjective Progress Note Date: 02/02/18 this is a 72 years old male with past medical history of hypertension , recent stroke 3 months ago patient of Dr. Metz care of guardian Etelvina last admitted in September for acute gastroenteritis comes in with shortness of breath that has been getting worse for the past few weeks. He denies any nausea or vomiting, lightheadedness or dizziness, no chest pain. chest x-ray done in the ER suggestive of mild CHF, labs were positive for a BNP of 6140 with normal troponin. Initial white is obtainable floor suggestive of a heart rate of 145, blood pressure 94/67 saturated room air 91%. Patient was seen by cardiology who suggested patient has atrial flutter. Will be taken for cardioversion tomorrow. Initiated on Celebrex Patient was initiated on Lasix 80 mg twice a day after a dose of Lasix. 01/27 Patient was noted to have some confusion last night, head CT ordered shows chronic white matter ischemic changes, old watershed infarct, and no acute intracranial changes. Today confusion has improved. Hypotension has improved, blood pressure 105/84 patient underwent TAMIR and cardioversion today. He had successful electrical cardioversion to sinus rhythm, patient noted to have severe cardiomyopathy on TAMIR. TAMIR shows left ventricular cavity is dilated with severe impaired left ventricular systolic function, moderate degree of mitral regurgitation, mild degree of tricuspid regurgitation. Echocardiogram reveals ejection fraction less than 20%, moderate left ventricular hypertrophy, LA is severely dialted, and moderate pericaridal effusion. 01/28 blood pressure on the lower side today. Patient is more confused than yesterday likely secondary to delirium. He does answer questions appropriately once disoriented. Pending for today. Neurology consulted. Patient has significant occlusion of the right common carotid artery external carotid artery and internal carotid artery with retrograde flow in the right vertebral artery representing subclavian steal syndrome. He has seen vascular surgery in the past who has recommended conservative management for the above. Metoprolol dose reduced to 12.5 mg twice daily. Amiodarone initiated at 200 mg daily Lasix held as patient has low blood pressure. Pericardial effusion documented on echocardiogram appears to be chronic secondary to viral infection. 01/29: Patient was seen at bedside he seems to be more confused today, appetite seems to be decreased, sitter at bedside, patient feels weak, unsteady on standing, balance impaired. Physical therapy requested, urine culture and sensitivity requested secondary to delirium, underlying dementia cannot be ruled out, no other neurologic focal deficits noted. Patient does not have any nausea no vomiting, no fever. Vascular has evaluated him, chronic right complete occlusion carotid stenosis no surgery required him and discussed with Dr. Kennedy. Orozco catheter has been placed secondary to urinary retention, postvoid residual over at least 300 mL, Orozco catheter in place patient on Flomax 01/30: Patient was a bit more dyspneic last night, patient required Lasix IV 40 mg last night, with additional 60 mg this morning, nebulized treatments this morning, patient has some bronchospasms, consult to Dr. Nathaly Rogers, CAT scan of the chest was requested, patient was placed on Rocephin for suspected urinary tract infection, cultures are currently pending, patient has increasing O2 requirements from 3 L this can lead to 5 L next cannula overnight, secondary to hypoxemia blood pressure remained stable at 121 systolic however he has low blood pressure around 84 systolic yesterday evening. Solu-Medrol 60 mg started for bronchospasms. 01/31 Patient was seen and evaluated today. He was noted to have large bilateral pleural effusions with multifocal subsegmental atelectasis, extensive bullous emphysematous changes, enlargement of the main pulmonary artery, extensive coronary artery calcifications, small abdominal ascities, right renal atrophy and nodularity of the left adrenal gland, and a small hiatal hernia on his CT scan. Will obtain an ultrasound of the thorax. Patient noted to be hypotensive , last reading 86/51, will treat with Midodrine 10mg TID. Physcial therapy evaluated patient today, he does not require physical assistance, thus does not meet criteria for inpatient rehab. 02/01: Patient was evaluated today, he was noted to be resting in bed with family at bedside. Patient was encouraged to ambulate. Will discontinue Orozco catheter tomorrow. Ultrasound of the thorax revealed moderate bilateral pleural effusions, pulmonology's consult appreciated. Recommends to continue with diuresis, if no response, then possible thoracentesis. Encouraged to use incentive spirometer at the bedside. We'll repeat a chest x-ray tomorrow. 02/02: Patient is seen and followed by Dr. Marin with recommendations to continue Lasix which is 40 mg twice daily. We will change Solu-Medrol over to oral prednisone. Repeat chest x-ray shows small bilateral pleural effusions with minimal bibasilar infiltrates likely compressive atelectasis. Patient is requesting discharge to [facility] for subacute rehab. We have asked for authorization to be obtained as expectation is that [employer] will take at least 24 hours or more to provide authorization. Orozco catheter to be removed. Objective - Vital Signs Vital signs: Vital Signs Temp 96.9 F L 02/02/18 08:00 Pulse 78 02/02/18 13:07 Resp 18 02/02/18 08:00 BP 97/51 02/02/18 08:00 Pulse Ox 95 02/02/18 08:00 Intake & Output 02/01/18 02/02/18 02/02/18 18:59 06:59 18:59 Intake Total 180 280 360 Output Total 1200 3225 300 Balance -1020 -2945 60 Weight 79.9 kg Intake: Oral 180 280 360 Output: Urine 1200 3225 300 Straight 1425 Other: Voiding Method Indwelling Catheter Indwelling Catheter Indwelling Catheter - Exam - Constitutional General appearance: cooperative, no acute distress, obese - EENT Eyes: anicteric sclerae, PERRLA, normal appearance ENT: hearing grossly normal - Neck Neck: no lymphadenopathy, normal ROM, no other, no rigidity, no stridor, no thyromegaly - Respiratory Respiratory: bilateral: CTA with bibasilar crackles present on examination, negative: diminished, dullnes - Cardiovascular Rhythm: regular Heart sounds: normal: S1, S2 Abnormal Heart Sounds: no systolic murmur, no diastolic murmur, no rub, no S3 Gallop, no S4 Gallop, no click, no other - Gastrointestinal General gastrointestinal: normal bowel sounds, soft - Integumentary Integumentary: no rash - Neurologic Neurologic: CNII-XII intact - Musculoskeletal Musculoskeletal: strength equal bilaterally - Psychiatric Psychiatric: A&O x's 3, appropriate affect - Labs CBC & Chem 7: 02/01/18 06:24 02/01/18 06:24 Labs: Microbiology - Last 24 Hours (Table) 01/30/18 05:25 Urine Culture - Final Urine,Catheterized Enterococcus faecalis Assessment and Plan Plan: 1 Acute systolic heart failure. Previous echo was normal, there is reduction in ejection fraction in this admission with an EF <20%. TAMIR shows severe cardiomyopathy with moderate pericardial effusion which is likely chronic. Diuretics restarted secondary to hypoxemia and dyspnea. Receiving Lasix 40 mg by mouth twice a day. Consult with Dr. Marin appreciated. #2 hypotention likely secondary to dehydration and atrial flutter, blood pressure has improved slightly with fluids. Hydrated and stabilized, Lasix has to be restarted secondary to dyspnea and pleural effusion, CHF metoprolol XL 25 mg daily, Midodrine 10mg TID added. Blood pressure stable. #3 New atrial flutter s/p cardioversion - continue Toprol XL 25 mg daily Patient underwent cardioversion to sinus rhythm. Continue eliquis 5 mg twice a day. #4 hypertension-continue home medications including metoprolol. 6. 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 Follows with Dr. Kennedy. Patient also follow Dr. Jones who recommended conservative management #10 GI prophylaxis Pepcid 20 mg po twice a day #11 DVT prophylaxis on eliquis #12 code status full code 13. Acute delirium. CT head negative for any acute abnormality. EEG does not show any focal, lateralized, or epileptiform abnormalities. urinalysis obtained 01/29, has some pyuria, urine cultures were sent, IV antibiotics Rocephin started and transition to orals #14 impaired balance, physical therapy and occupational therapies to see the patient, skilled therapies expected, patient does not meet criteria for inpatient, will plan for subacute upon discharge #15 large pericardial effusion, moderate, no plans for surgical intervention patient currently is on diuretics cardiology following closely, pulmonary consulted Dr. Guanaco Rogers, u/s of thorax ordered #16 mild protein calorie malnutrition, patient has diminished appetite, nutritional supplementation and requested #17 acute transaminitis most likely secondary to right-sided heart failure, levels are trending downward #18 acute kidney injury and CKD stage II most likely secondary to postobstructive issues, along with ATN with hypotension,, monitor for post void residual after Orozco catheter would be discontinued, continue to monitor chemistries. Consult with Dr. Marin appreciated. #19 pyuria with BPH and lower urinary tract symptomatology, causing delirium, patient will be started on IV Rocephin, cephalosporins oral on discharge #20 COPD exacerbation, Solu-Medrol changed to oral prednisone for the morning and continue nebulized albuterol Atrovent, #21 abdominal ascites noted on CAT scan, most likely secondary to hypoalbuminemia, however other pathologies are not excluded, IV Lasix, continue to monitor #22 Coronary artery calcifications,/CAD, Discharge plan: [facility] under the care of Dr. Henry Impression and plan of care have been directed as dictated by the signing physician. Etelvina Gallegos nurse practitioner acting as scribe for signing physician.
[2018-02-03] MEDS: cefTRIAXone IN SWFI 1,000 MG/10 ML SYRINGE IVP SCH (11:30)
[2018-02-03] MEDS: LOSARTAN 25 MG TAB PO SCH (11:31)
[2018-02-03] MEDS: FUROSEMIDE 40 MG TAB PO SCH ×2 (11:31→18:42)
[2018-02-03] MEDS: METOPROLOL SUCCINATE (ER) 25 MG TAB.ER.24H PO SCH (11:31)
[2018-02-03] MEDS: SPIRONOLACTONE 25 MG TAB PO SCH (11:31)
--- NOTE | 2018-02-03 11:51 | P.PN ---
Subjective Progress Note Date: 02/03/18 Principal diagnosis: CHF This is a 73-year-old gentleman with history of hypertension, recent stroke, COPD, nicotine dependence, who presented to the hospital with symptoms of shortness of breath. He was seen in consultation by Dr. Sneed on arrival here, found to be in atrial flutter, patient underwent cardioversion. He was seen and examined this morning continues to be in normal sinus rhythm. He does state overall that his breathing is significantly improved. Blood pressure 90/ 50 with a heart rate in the 70s, 91% on 2 L of oxygen. White blood cell count 13.2, hemoglobin 13.3, sodium 134, potassium 4.2, BUN 20, creatinine 0.8. Objective - Vital Signs Vital signs: Vital Signs Temp 96.9 F L 02/03/18 08:00 Pulse 80 02/03/18 08:36 Resp 18 02/03/18 08:00 BP 90/56 02/03/18 08:00 Pulse Ox 91 L 02/03/18 08:00 Intake & Output 02/02/18 02/03/18 02/03/18 18:59 06:59 18:59 Intake Total 600 480 Output Total 1525 650 Balance -925 -650 480 Weight 81.9 kg Intake: Oral 600 480 Output: Urine 1525 650 Straight 600 Other: Voiding Method Indwelling Catheter Bedside Commode Bedside Commode # Voids 3 - Exam PHYSICAL EXAMINATION: HEENT: Head is atraumatic, normocephalic. Pupils equal, round. Neck is supple. There is no elevated jugular venous pressure. HEART EXAMINATION: Heart S1, S2 normal. No murmur or gallop heard. CHEST EXAMINATION: Lungs reveal crackles to bilateral bases. ABDOMEN: Soft, nontender. Bowel sounds are heard. No organomegaly noted. EXTREMITIES: 2+ peripheral pulses with no evidence of peripheral edema and no calf tenderness noted. NEUROLOGIC patient is awake, alert and oriented -3. . - Labs CBC & Chem 7: 02/01/18 06:24 02/01/18 06:24 Assessment and Plan Plan: Assessment and plan #1 systolic congestive heart failure acute on chronic, prior echo was normal, there is reduction in ejection fraction on this admission with an EF of less than 20. #2 paroxysmal atrial flutter, typical, status post cardioversion to normal sinus rhythm #3 hypertension #4 TIA number 5 pericardial effusion #6 acute renal insufficiency, stage II #7 COPD exacerbation Plan Continue maximum heart failure medications, anticoagulation long-term. Follow- up with Dr. Sneed in the office. DNP note has been reviewed, I agree with a documented findings and plan of care. Patient was seen and examined.
--- NOTE | 2018-02-03 12:11 | P.DS ---
Providers Date of admission: 01/26/18 11:34 Expected date of discharge: 02/03/18 Attending physician: Aki Moura MD Consults: 01/25/18 14:45 Consult Physician Routine Consulting Provider: Abel Rogers Consult Reason/Comments: heart failure Do you want consulting provider notified?: Yes 01/27/18 15:08 Consult Physician Routine Consulting Provider: Michelle Hay Consult Reason/Comments: mental status change Do you want consulting provider notified?: Already Contacted 01/28/18 15:41 Consult Physician Stat Consulting Provider: Kevin Kennedy Consult Reason/Comments: critical carotid us. Do you want consulting provider notified?: Yes 01/29/18 19:47 Consult Physician Routine Consulting Provider: Manjeet Coronel Consult Reason/Comments: inpatient rehab, debility Do you want consulting provider notified?: Yes, Notify in am 01/30/18 09:38 Consult Physician Routine Consulting Provider: Tom Rogers Consult Reason/Comments: dyspnea effusion, hypoxemia Do you want consulting provider notified?: Yes 01/31/18 15:05 Consult Physician Stat Consulting Provider: Radha Marin Consult Reason/Comments: diuresis Do you want consulting provider notified?: Yes Primary care physician: Alexei Metz [facility] Course: this is a 72 years old male with past medical history of hypertension , recent stroke 3 months ago patient of Dr. Metz care of [facility] last admitted in September for acute gastroenteritis comes in with shortness of breath that has been getting worse for the past few weeks. He denies any nausea or vomiting, lightheadedness or dizziness, no chest pain. chest x-ray done in the ER suggestive of mild CHF, labs were positive for a BNP of 6140 with normal troponin. Initial white is obtainable floor suggestive of a heart rate of 145, blood pressure 94/67 saturated room air 91%. Patient was seen by cardiology who suggested patient has atrial flutter. Will be taken for cardioversion tomorrow. Initiated on Celebrex Patient was initiated on Lasix 80 mg twice a day after a dose of Lasix. 01/27 Patient was noted to have some confusion last night, head CT ordered shows chronic white matter ischemic changes, old watershed infarct, and no acute intracranial changes. Today confusion has improved. Hypotension has improved, blood pressure 105/84 patient underwent TAMIR and cardioversion today. He had successful electrical cardioversion to sinus rhythm, patient noted to have severe cardiomyopathy on TAMIR. TAMIR shows left ventricular cavity is dilated with severe impaired left ventricular systolic function, moderate degree of mitral regurgitation, mild degree of tricuspid regurgitation. Echocardiogram reveals ejection fraction less than 20%, moderate left ventricular hypertrophy, LA is severely dialted, and moderate pericaridal effusion. 01/28 blood pressure on the lower side today. Patient is more confused than yesterday likely secondary to delirium. He does answer questions appropriately once disoriented. Pending for today. Neurology consulted. Patient has significant occlusion of the right common carotid artery external carotid artery and internal carotid artery with retrograde flow in the right vertebral artery representing subclavian steal syndrome. He has seen vascular surgery in the past who has recommended conservative management for the above. Metoprolol dose reduced to 12.5 mg twice daily. Amiodarone initiated at 200 mg daily Lasix held as patient has low blood pressure. Pericardial effusion documented on echocardiogram appears to be chronic secondary to viral infection. 01/29: Patient was seen at bedside he seems to be more confused today, appetite seems to be decreased, sitter at bedside, patient feels weak, unsteady on standing, balance impaired. Physical therapy requested, urine culture and sensitivity requested secondary to delirium, underlying dementia cannot be ruled out, no other neurologic focal deficits noted. Patient does not have any nausea no vomiting, no fever. Vascular has evaluated him, chronic right complete occlusion carotid stenosis no surgery required him and discussed with Dr. Kennedy. Orozco catheter has been placed secondary to urinary retention, postvoid residual over at least 300 mL, Orozco catheter in place patient on Flomax 01/30: Patient was a bit more dyspneic last night, patient required Lasix IV 40 mg last night, with additional 60 mg this morning, nebulized treatments this morning, patient has some bronchospasms, consult to Dr. Nathaly Rogers, CAT scan of the chest was requested, patient was placed on Rocephin for suspected urinary tract infection, cultures are currently pending, patient has increasing O2 requirements from 3 L this can lead to 5 L next cannula overnight, secondary to hypoxemia blood pressure remained stable at 121 systolic however he has low blood pressure around 84 systolic yesterday evening. Solu-Medrol 60 mg started for bronchospasms. 01/31 Patient was seen and evaluated today. He was noted to have large bilateral pleural effusions with multifocal subsegmental atelectasis, extensive bullous emphysematous changes, enlargement of the main pulmonary artery, extensive coronary artery calcifications, small abdominal ascities, right renal atrophy and nodularity of the left adrenal gland, and a small hiatal hernia on his CT scan. Will obtain an ultrasound of the thorax. Patient noted to be hypotensive , last reading 86/51, will treat with Midodrine 10mg TID. Physcial therapy evaluated patient today, he does not require physical assistance, thus does not meet criteria for inpatient rehab. 02/01: Patient was evaluated today, he was noted to be resting in bed with family at bedside. Patient was encouraged to ambulate. Will discontinue Orozco catheter tomorrow. Ultrasound of the thorax revealed moderate bilateral pleural effusions, pulmonology's consult appreciated. Recommends to continue with diuresis, if no response, then possible thoracentesis. Encouraged to use incentive spirometer at the bedside. We'll repeat a chest x-ray tomorrow. 02/02: Patient is seen and followed by Dr. Marin with recommendations to continue Lasix which is 40 mg twice daily. We will change Solu-Medrol over to oral prednisone. Repeat chest x-ray shows small bilateral pleural effusions with minimal bibasilar infiltrates likely compressive atelectasis. Patient is requesting discharge to [facility] for subacute rehab. We have asked for authorization to be obtained as expectation is that [employer] will take at least 24 hours or more to provide authorization. Orozco catheter to be removed. 02/03: Medication reconciliation completed. Patient is ambulating well with PT. He has been able to void since orozco removed. Patient will be discharged to [facility] today in stable condition. Discharge diagnoses: 1 Acute systolic heart failure. #2 hypotention likely secondary to dehydration and atrial flutter #3 New atrial flutter s/p cardioversion #4 hypertension 6. 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 Follows with Dr. Kennedy. #10 GI prophylaxis #11 DVT prophylaxis #12 code status full code 13. Acute delirium. #14 impaired balance, physical therapy and occupational therapies to see the patient #15 large pericardial effusion, moderate, no plans for surgical intervention #16 mild protein calorie malnutrition #17 acute transaminitis most likely secondary to right-sided heart failure #18 acute kidney injury and CKD stage II most likely secondary to postobstructive issues, along with ATN with hypotension #19 pyuria with BPH and lower urinary tract symptomatology, causing delirium #20 COPD exacerbation #21 abdominal ascites noted on CAT scan, most likely secondary to hypoalbuminemia #22 Coronary artery calcifications,/CAD, Discharge plan: [facility] under the care of Dr. Henry Impression and plan of care have been directed as dictated by the signing physician. Etelvina Gallegos nurse practitioner acting as scribe for signing physician. Patient Condition at Discharge: Good Plan - Discharge Summary Discharge Rx Participant: Yes New Discharge Prescriptions: New ALPRAZolam [Xanax] 0.25 mg PO BID PRN #60 tab PRN Reason: Anxiety Amiodarone [Cordarone] 200 mg PO DAILY tab Amoxicillin/Potassium Clav [Augmentin 875-125 Tablet] 1 each PO Q12HR #14 tab Apixaban [Eliquis] 5 mg PO BID #0 tab Budesonide [Pulmicort] 0.5 mg INHALATION RT-BID nebu Famotidine [Pepcid] 20 mg PO BID tab Furosemide [Lasix] 40 mg PO BID@0900,1600 tab guaiFENesin [Mucinex] 600 mg PO Q12HR tablet.er Ipratropium-Albuterol Nebulize [Duoneb 0.5 mg-3 mg/3 ml Soln] 3 ml INHALATION RT-QID ampul.neb Ipratropium-Albuterol Nebulize [Duoneb 0.5 mg-3 mg/3 ml Soln] 3 ml INHALATION RT-Q2H PRN ampul.neb PRN Reason: Shortness Of Breath Or Wheezing Losartan [Cozaar] 12.5 mg PO DAILY tab Metoprolol Succinate (ER) [Toprol XL] 25 mg PO DAILY tab.er.24h Midodrine [ProAmatine] 10 mg PO AC-TID tab Nicotine 21Mg/24Hr Patch [Habitrol] 1 patch TRANSDERM DAILY patch predniSONE 0 mg PO DIRECTED #30 tab Spironolactone [Aldactone] 25 mg PO DAILY tab Continue Finasteride [Proscar] 5 mg PO DAILY Aspirin 81 mg PO HS Montelukast Sodium [Singulair] 10 mg PO HS Tamsulosin [Flomax] 0.4 mg PO DAILY Atorvastatin Calcium [Lipitor] 40 mg PO HS traMADol HCl [Ultram] 50 mg PO Q6H PRN #120 tab PRN Reason: Pain Changed tiZANidine HCL 2 mg PO BID PRN #0 PRN Reason: muscle spasms Discontinued Saw Bird In Hand 160 mg PO HS Albuterol Nebulized [Ventolin Nebulized] 2.5 mg INHALATION Q6H PRN PRN Reason: Shortness Of Breath Discharge Medication List Finasteride [Proscar] 5 mg PO DAILY 04/09/17 [History] Aspirin 81 mg PO HS 01/25/18 [History] Atorvastatin Calcium [Lipitor] 40 mg PO HS 01/25/18 [History] Montelukast Sodium [Singulair] 10 mg PO HS 01/25/18 [History] Tamsulosin [Flomax] 0.4 mg PO DAILY 01/25/18 [History] ALPRAZolam [Xanax] 0.25 mg PO BID PRN #60 tab 02/03/18 [Rx] Amiodarone [Cordarone] 200 mg PO DAILY tab 02/03/18 [Rx] Amoxicillin/Potassium Clav [Augmentin 875-125 Tablet] 1 each PO Q12HR #14 tab [Rx] Apixaban [Eliquis] 5 mg PO BID #0 tab 02/03/18 [Rx] Budesonide [Pulmicort] 0.5 mg INHALATION RT-BID nebu 02/03/18 [Rx] Famotidine [Pepcid] 20 mg PO BID tab 02/03/18 [Rx] Furosemide [Lasix] 40 mg PO BID@0900,1600 tab 02/03/18 [Rx] Ipratropium-Albuterol Nebulize [Duoneb 0.5 mg-3 mg/3 ml Soln] 3 ml INHALATION RT -Q2H PRN ampul.neb 02/03/18 [Rx] Ipratropium-Albuterol Nebulize [Duoneb 0.5 mg-3 mg/3 ml Soln] 3 ml INHALATION RT -QID ampul.neb 02/03/18 [Rx] Losartan [Cozaar] 12.5 mg PO DAILY tab 02/03/18 [Rx] Metoprolol Succinate (ER) [Toprol XL] 25 mg PO DAILY tab.er.24h 02/03/18 [Rx] Midodrine [ProAmatine] 10 mg PO AC-TID tab 02/03/18 [Rx] Nicotine 21Mg/24Hr Patch [Habitrol] 1 patch TRANSDERM DAILY patch 02/03/18 [Rx] Spironolactone [Aldactone] 25 mg PO DAILY tab 02/03/18 [Rx] guaiFENesin [Mucinex] 600 mg PO Q12HR tablet.er 02/03/18 [Rx] predniSONE 0 mg PO DIRECTED #30 tab 02/03/18 [Rx] tiZANidine HCL 2 mg PO BID PRN #0 02/03/18 [Rx] traMADol HCl [Ultram] 50 mg PO Q6H PRN #120 tab 02/03/18 [Rx] Follow up Appointment(s)/Referral(s): [facility] [Provider Group] - 1 Week Alexei Metz MD [Primary Care Provider] - 1 Week (after dc from [facility]) Tom Rogers MD [STAFF PHYSICIAN] - 3 Days
--- NOTE | 2018-02-03 12:15 | P.PN ---
<Tata Kelly E - Last Filed: 02/03/18 12:13> Subjective Progress Note Date: 02/03/18 HPI: is a 73-year-old male who presented to [facility] on 2017 at that time he had been complaining of shortness of breath and had been getting worse over the next couple of weeks prior to coming in. He does have history of COPD and has been taking his nebulizer treatments and albuterol. Today he is quite confused and shortness breath as well. He denies any chest pain at this time. 01/31/18- patient has been seen and examined and evaluated on rounds. He is resting up in bed on 3 L of supplemental oxygen via nasal cannula. He has been up walking in the room. He was evaluated for possible inpatient rehab and is not a candidate at this time. He does not use any home oxygen. He has been using his incentive spirometer and pulling volumes of approximately 1000 ML's. Does have a congested cough that has been nonproductive. Patient did undergo a ultrasound of the chest this morning which did show bilateral pleural effusions right measuring 7.2 cm left measuring 7.3 cm. 02/01/18- please see Dr. Jono Jauregui note 02/02/18- patient is being seen examined and evaluated today on rounds. Patient sitting up in bed on 2 L of supplemental oxygen via nasal cannula. Chest x-ray from this morning does reveal small bilateral pleural effusions. He does have some shortness of breath with exertion however it is improving. He denies any cough or congestion at this time. Steroid to place continues to be tapered. 02/03/18- patient is being seen examined and evaluated on rounds. He is sitting up in bed on 2 L of supplemental oxygen via nasal cannula. Patient feels his breathing is improved to his family is at bedside and updated on plan of care. Discharge planning to rehab facility is currently in process. He is afebrile no further complaints all labs and reports have been reviewed. Objective - Vital Signs Vital signs: Vital Signs Temp 97 F L 02/03/18 11:40 Pulse 91 02/03/18 11:40 Resp 18 02/03/18 11:40 BP 104/54 02/03/18 11:40 Pulse Ox 93 L 02/03/18 11:40 Intake & Output 02/02/18 02/03/18 02/03/18 18:59 06:59 18:59 Intake Total 600 480 Output Total 1525 650 400 Balance -925 -650 80 Weight 81.9 kg Intake: Oral 600 480 Output: Urine 1525 650 400 Straight 600 Other: Voiding Method Indwelling Catheter Bedside Commode Bedside Commode # Voids 3 - Exam GENERAL EXAM: Alert, comfortable in no apparent distress. HEAD: Normocephalic. EYES: Normal reaction of pupils, equal size. NOSE: Clear with pink turbinates. THROAT: No erythema or exudates. NECK: No masses, no JVD. CHEST: No chest wall deformity. LUNGS: Lungs noted to have decreased air entry throughout. Bases diminished CVS: S1 and S2 normal with no audible mumurs, regular rhythm. ABDOMEN: No hepatosplenomegaly, normal bowel sounds, no guarding or rigidity. EXTREMITIES: No edema noted, pedal pulses palpable. CENTRAL NERVOUS SYSTEM: No focal deficits, tone is normal in all 4 extremities. - Labs CBC & Chem 7: 02/01/18 06:24 02/01/18 06:24 Assessment and Plan Assessment: Assessment COPD with acute exacerbation Bilateral pleural effusions Chronic moderate pericardial effusion Congestive heart failure systolic with acute overload CAD UTI Metabolic encephalopathy Abdominal ascites Medical debility Plan Patient could be cleared for discharge from a pulmonary standpoint to rehab facility. Medications have been reviewed and will be continued as ordered. Steroid taper. Continue with diuresis. Ultrasound of bilateral lungs has been reviewed. CT of chest reviewed. Nephrology consultation patient is diuresing well. Chest x-ray is reviewed. Continue with pulmonary hygiene, coughing and deep breathing exercises, and supportive care. Supplemental oxygen to maintain oxygen saturations of 92% or better. Continue nebulizer treatments. GI and DVT prophylaxis. PT/OT. We will continue to monitor labs/results and adjust treatment as necessary. Further recommendations pending. I performed an examination of the patient and discussed their management with the nurse practitioner. I have reviewed the nurse practitioner's note and agree with the documented findings and plan of care. <Olimpia Parsons - Last Filed: 02/03/18 14:57> Objective - Vital Signs Vital signs: Vital Signs Temp 97 F L 02/03/18 11:40 Pulse 91 02/03/18 11:40 Resp 18 02/03/18 11:40 BP 104/54 02/03/18 11:40 Pulse Ox 93 L 02/03/18 11:40 Intake & Output 02/02/18 02/03/18 02/03/18 18:59 06:59 18:59 Intake Total 600 600 Output Total 1525 650 700 Balance -925 -650 -100 Weight 81.9 kg 81.9 kg Intake: Oral 600 600 Output: Urine 1525 650 700 Straight 600 Other: Voiding Method Indwelling Catheter Bedside Commode Bedside Commode # Voids 3 3 # Bowel Movements 0 - Labs CBC & Chem 7: 02/01/18 06:24 02/01/18 06:24 Assessment and Plan Assessment: Patient seen and examined. Respiratory status is stable. Patient states he is at his baseline. Okay to discharge to ECF today. Follow-up with pulmonary in 1 -2 weeks. Thank you for this consultation Olimpia Parsons DO
[2018-02-03] MEDS: ATORVASTATIN 40 MG TAB PO SCH (20:04)
[2018-02-03] MEDS: MONTELUKAST 10 MG TAB PO SCH (20:05)
[2018-02-04] MEDS ORDERED: DEXTROSE 5% IN WATER 100 ML with AMIODARONE 150 MG IV ONE (03:45)
[2018-02-04] MEDS: AMIODARONE 450 MG in DEXTROSE 5% IN WATER 250 ML IV SCH ×6 (04:10→20:37)
[2018-02-04] MEDS: MIDODRINE 5 MG TAB PO SCH ×3 (06:28→18:09)
[2018-02-04] MEDS: METOPROLOL SUCCINATE (ER) 25 MG TAB.ER.24H PO SCH (06:28)
[2018-02-04] MEDS: IPRATROPIUM-ALBUTEROL 3 ML NEB INHALATION SCH ×4 (07:57→19:19)
[2018-02-04] MEDS: BUDESONIDE 0.5 MG/2 ML NEBU INHALATION SCH ×2 (08:01→19:21)
[2018-02-04] MEDS: AMIODARONE 200 MG TAB PO SCH (08:07)
[2018-02-04] MEDS: NICOTINE 21MG/24HR PATCH TRANSDERM SCH (08:15)
[2018-02-04] MEDS: APIXABAN 5 MG TAB PO SCH ×2 (08:15→20:37)
[2018-02-04] MEDS: FUROSEMIDE 40 MG TAB PO SCH ×2 (08:16→18:10)
[2018-02-04] MEDS: cefTRIAXone IN SWFI 1,000 MG/10 ML SYRINGE IVP SCH (08:16)
[2018-02-04] MEDS: predniSONE 20 MG TAB PO SCH (08:16)
[2018-02-04] MEDS: guaiFENesin 600 MG TABLET.ER PO SCH ×2 (08:16→20:37)
[2018-02-04] MEDS: FINASTERIDE 5 MG TAB PO SCH (08:16)
[2018-02-04] MEDS: FAMOTIDINE 20 MG TAB PO SCH ×2 (08:16→20:37)
[2018-02-04] MEDS: SPIRONOLACTONE 25 MG TAB PO SCH (08:17)
[2018-02-04] MEDS: TAMSULOSIN 0.4 MG CAP.ER.24H PO SCH (08:17)
--- NOTE | 2018-02-04 10:06 | P.PN ---
Subjective Progress Note Date: 02/03/18 this is a 72 years old male with past medical history of hypertension , recent stroke 3 months ago patient of Dr. Metz care of guardian Etelvina last admitted in September for acute gastroenteritis comes in with shortness of breath that has been getting worse for the past few weeks. He denies any nausea or vomiting, lightheadedness or dizziness, no chest pain. chest x-ray done in the ER suggestive of mild CHF, labs were positive for a BNP of 6140 with normal troponin. Initial white is obtainable floor suggestive of a heart rate of 145, blood pressure 94/67 saturated room air 91%. Patient was seen by cardiology who suggested patient has atrial flutter. Will be taken for cardioversion tomorrow. Initiated on Celebrex Patient was initiated on Lasix 80 mg twice a day after a dose of Lasix. 01/27 Patient was noted to have some confusion last night, head CT ordered shows chronic white matter ischemic changes, old watershed infarct, and no acute intracranial changes. Today confusion has improved. Hypotension has improved, blood pressure 105/84 patient underwent TAMIR and cardioversion today. He had successful electrical cardioversion to sinus rhythm, patient noted to have severe cardiomyopathy on TAMIR. TAMIR shows left ventricular cavity is dilated with severe impaired left ventricular systolic function, moderate degree of mitral regurgitation, mild degree of tricuspid regurgitation. Echocardiogram reveals ejection fraction less than 20%, moderate left ventricular hypertrophy, LA is severely dialted, and moderate pericaridal effusion. 01/28 blood pressure on the lower side today. Patient is more confused than yesterday likely secondary to delirium. He does answer questions appropriately once disoriented. Pending for today. Neurology consulted. Patient has significant occlusion of the right common carotid artery external carotid artery and internal carotid artery with retrograde flow in the right vertebral artery representing subclavian steal syndrome. He has seen vascular surgery in the past who has recommended conservative management for the above. Metoprolol dose reduced to 12.5 mg twice daily. Amiodarone initiated at 200 mg daily Lasix held as patient has low blood pressure. Pericardial effusion documented on echocardiogram appears to be chronic secondary to viral infection. 01/29: Patient was seen at bedside he seems to be more confused today, appetite seems to be decreased, sitter at bedside, patient feels weak, unsteady on standing, balance impaired. Physical therapy requested, urine culture and sensitivity requested secondary to delirium, underlying dementia cannot be ruled out, no other neurologic focal deficits noted. Patient does not have any nausea no vomiting, no fever. Vascular has evaluated him, chronic right complete occlusion carotid stenosis no surgery required him and discussed with Dr. Kennedy. Orozco catheter has been placed secondary to urinary retention, postvoid residual over at least 300 mL, Orozco catheter in place patient on Flomax 01/30: Patient was a bit more dyspneic last night, patient required Lasix IV 40 mg last night, with additional 60 mg this morning, nebulized treatments this morning, patient has some bronchospasms, consult to Dr. Nathaly Rogers, CAT scan of the chest was requested, patient was placed on Rocephin for suspected urinary tract infection, cultures are currently pending, patient has increasing O2 requirements from 3 L this can lead to 5 L next cannula overnight, secondary to hypoxemia blood pressure remained stable at 121 systolic however he has low blood pressure around 84 systolic yesterday evening. Solu-Medrol 60 mg started for bronchospasms. 01/31 Patient was seen and evaluated today. He was noted to have large bilateral pleural effusions with multifocal subsegmental atelectasis, extensive bullous emphysematous changes, enlargement of the main pulmonary artery, extensive coronary artery calcifications, small abdominal ascities, right renal atrophy and nodularity of the left adrenal gland, and a small hiatal hernia on his CT scan. Will obtain an ultrasound of the thorax. Patient noted to be hypotensive , last reading 86/51, will treat with Midodrine 10mg TID. Physcial therapy evaluated patient today, he does not require physical assistance, thus does not meet criteria for inpatient rehab. 02/01: Patient was evaluated today, he was noted to be resting in bed with family at bedside. Patient was encouraged to ambulate. Will discontinue Orozco catheter tomorrow. Ultrasound of the thorax revealed moderate bilateral pleural effusions, pulmonology's consult appreciated. Recommends to continue with diuresis, if no response, then possible thoracentesis. Encouraged to use incentive spirometer at the bedside. We'll repeat a chest x-ray tomorrow. 02/02: Patient is seen and followed by Dr. Marin with recommendations to continue Lasix which is 40 mg twice daily. We will change Solu-Medrol over to oral prednisone. Repeat chest x-ray shows small bilateral pleural effusions with minimal bibasilar infiltrates likely compressive atelectasis. Patient is requesting discharge to [facility] for subacute rehab. We have asked for authorization to be obtained as expectation is that [employer] will take at least 24 hours or more to provide authorization. Orozco catheter to be removed. 02/03: Medication reconciliation completed. Patient is ambulating well with PT. He has been able to void since orozco removed. Patient will be discharged to [facility] today in stable condition. All arrangements were completed to discharge patient to [facility] but we are waiting for insurance authorization. Patient denies any new complaints. Breathing status is stable. Patient will be discharged once insurance authorization is completed. Objective - Vital Signs Vital signs: Vital Signs Temp 96.9 F L 02/03/18 08:00 Pulse 80 02/03/18 08:36 Resp 18 02/03/18 08:00 BP 90/56 02/03/18 08:00 Pulse Ox 91 L 02/03/18 08:00 Intake & Output 02/02/18 02/03/18 02/03/18 18:59 06:59 18:59 Intake Total 600 480 Output Total 1525 650 Balance -925 -650 480 Weight 81.9 kg Intake: Oral 600 480 Output: Urine 1525 650 Straight 600 Other: Voiding Method Indwelling Catheter Bedside Commode Bedside Commode # Voids 3 - Exam - Constitutional General appearance: cooperative, no acute distress, obese - EENT Eyes: anicteric sclerae, PERRLA, normal appearance ENT: hearing grossly normal - Neck Neck: no lymphadenopathy, normal ROM, no other, no rigidity, no stridor, no thyromegaly - Respiratory Respiratory: bilateral: CTA with bibasilar crackles present on examination, negative: diminished, dullnes - Cardiovascular Rhythm: regular Heart sounds: normal: S1, S2 Abnormal Heart Sounds: no systolic murmur, no diastolic murmur, no rub, no S3 Gallop, no S4 Gallop, no click, no other - Gastrointestinal General gastrointestinal: normal bowel sounds, soft - Integumentary Integumentary: no rash - Neurologic Neurologic: CNII-XII intact - Musculoskeletal Musculoskeletal: strength equal bilaterally - Psychiatric Psychiatric: A&O x's 3, appropriate affect - Labs CBC & Chem 7: 02/01/18 06:24 02/01/18 06:24 Assessment and Plan Plan: 1 Acute systolic heart failure. Previous echo was normal, there is reduction in ejection fraction in this admission with an EF <20%. TAMIR shows severe cardiomyopathy with moderate pericardial effusion which is likely chronic. Diuretics restarted secondary to hypoxemia and dyspnea. Receiving Lasix 40 mg by mouth twice a day. Consult with Dr. Tomas street. #2 hypotention likely secondary to dehydration and atrial flutter, blood pressure has improved slightly with fluids. Hydrated and stabilized, Lasix has to be restarted secondary to dyspnea and pleural effusion, CHF metoprolol XL 25 mg daily, Midodrine 10mg TID added. Blood pressure stable. #3 New atrial flutter s/p cardioversion - continue Toprol XL 25 mg daily Patient underwent cardioversion to sinus rhythm. Continue eliquis 5 mg twice a day. #4 hypertension-continue home medications including metoprolol. 6. 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 Follows with Dr. Kennedy. Patient also follow Dr. Jones who recommended conservative management #10 GI prophylaxis Pepcid 20 mg po twice a day #11 DVT prophylaxis on eliquis #12 code status full code 13. Acute delirium. CT head negative for any acute abnormality. EEG does not show any focal, lateralized, or epileptiform abnormalities. urinalysis obtained 01/29, has some pyuria, urine cultures were sent, IV antibiotics Rocephin started and transition to orals #14 impaired balance, physical therapy and occupational therapies to see the patient, skilled therapies expected, patient does not meet criteria for inpatient, will plan for subacute upon discharge #15 large pericardial effusion, moderate, no plans for surgical intervention patient currently is on diuretics cardiology following closely, pulmonary consulted Dr. Guanaco Rogers, u/s of thorax ordered #16 mild protein calorie malnutrition, patient has diminished appetite, nutritional supplementation and requested #17 acute transaminitis most likely secondary to right-sided heart failure, levels are trending downward #18 acute kidney injury and CKD stage II most likely secondary to postobstructive issues, along with ATN with hypotension,, monitor for post void residual after Orozco catheter would be discontinued, continue to monitor chemistries. Consult with Dr. Tomas street. #19 pyuria with BPH and lower urinary tract symptomatology, causing delirium, patient will be started on IV Rocephin, cephalosporins oral on discharge #20 COPD exacerbation, Solu-Medrol changed to oral prednisone for the morning and continue nebulized albuterol Atrovent, #21 abdominal ascites noted on CAT scan, most likely secondary to hypoalbuminemia, however other pathologies are not excluded, IV Lasix, continue to monitor #22 Coronary artery calcifications,/CAD, Discharge plan: [facility] under the care of Dr. Henry Impression and plan of care have been directed as dictated by the signing physician. Etelvina Gallegos nurse practitioner acting as scribe for signing physician.
--- NOTE | 2018-02-04 11:14 | P.PN ---
Progress Note - Text Patient is back in atrial fibrillation. Last week and cardioverted him for atrial flutter symptomatic. He was on oral amiodarone and currently is on IV amiodarone If he remains in atrial fibrillation then on Wednesday I will cardiovert him I discussed this with the patient He should remain on anticoagulation Anti-coag ablation should be continued on the morning of the procedure
--- NOTE | 2018-02-04 12:03 | P.PN ---
Subjective Progress Note Date: 02/04/18 Principal diagnosis: CHF This is a 73-year-old gentleman with history of hypertension, recent stroke, COPD, nicotine dependence, who presented to the hospital with symptoms of shortness of breath. He was seen in consultation by Dr. Sneed on arrival here, found to be in atrial flutter, patient underwent cardioversion. He was seen and examined this morning continues to be in normal sinus rhythm. He does state overall that his breathing is significantly improved. Blood pressure 90/ 50 with a heart rate in the 70s, 91% on 2 L of oxygen. White blood cell count 13.2, hemoglobin 13.3, sodium 134, potassium 4.2, BUN 20, creatinine 0.8. 02/04/2018 Patient was seen and examined this morning, went back into atrial fibrillation with rapid ventricular response through the night last night and was initiated on IV amiodarone. His by mouth amiodarone is currently on hold. He continues to be in atrial fibrillation this morning. If the patient remains in atrial fibrillation on by Wednesday, Dr. Sneed will consider repeating the cardioversion. Blood pressure 102/60, heart rate low 100s this morning, 96% on 2 L of oxygen. Objective - Vital Signs Vital signs: Vital Signs Temp 97.8 F 02/04/18 11:26 Pulse 104 H 02/04/18 11:30 Resp 16 02/04/18 11:30 BP 96/81 02/04/18 11:26 Pulse Ox 96 02/04/18 11:26 Intake & Output 02/03/18 02/04/18 02/04/18 18:59 06:59 18:59 Intake Total 1080 750 229.979 Output Total 900 1400 Balance 180 -650 229.979 Weight 81.9 kg 81 kg Intake: IV 20 Invasive Line 4 20 Intake, IV Titration 209.979 Amount Amiodarone 450 mg In 209.979 Dextrose 5% in Water 250 ml @ 1 MG/MIN 33.33 mls/ hr IV [id number] LAURA Rx#: [id number] Oral 1080 750 Output: Urine 900 1400 Other: Voiding Method Bedside Commode Bedside Commode Bedside Commode # Voids 1 # Bowel Movements 0 - Exam PHYSICAL EXAMINATION: HEENT: Head is atraumatic, normocephalic. Pupils equal, round. Neck is supple. There is no elevated jugular venous pressure. HEART EXAMINATION: Heart S1, S2 irregularly irregular . No murmur or gallop heard. CHEST EXAMINATION: Lungs reveal crackles to bilateral bases, with diminished air entry to the bases. ABDOMEN: Soft, nontender. Bowel sounds are heard. No organomegaly noted. EXTREMITIES: 2+ peripheral pulses with no evidence of peripheral edema and no calf tenderness noted. NEUROLOGIC patient is awake, alert and oriented -3. . - Labs CBC & Chem 7: 02/01/18 06:24 02/01/18 06:24 Assessment and Plan Plan: Assessment and plan #1 systolic congestive heart failure acute on chronic, prior echo was normal, there is reduction in ejection fraction on this admission with an EF of less than 20. #2 paroxysmal atrial flutter, typical, status post cardioversion to normal sinus rhythm #3 hypertension #4 TIA # 5 pericardial effusion #6 acute renal insufficiency, stage II #7 COPD exacerbation Plan Continue maximum heart failure medications, anticoagulation long-term. Sinew IV amiodarone per protocol, continue to monitor the patient. If the patient remains in atrial fibrillation, Dr. Sneed may perform a repeat cardioversion on Wednesday. DNP note has been reviewed, I agree with a documented findings and plan of care. Patient was seen and examined.
--- NOTE | 2018-02-04 12:04 | P.PN ---
Subjective Progress Note Date: 02/04/18 HPI: is a 73-year-old male who presented to [facility] on 2017 at that time he had been complaining of shortness of breath and had been getting worse over the next couple of weeks prior to coming in. He does have history of COPD and has been taking his nebulizer treatments and albuterol. Today he is quite confused and shortness breath as well. He denies any chest pain at this time. 01/31/18- patient has been seen and examined and evaluated on rounds. He is resting up in bed on 3 L of supplemental oxygen via nasal cannula. He has been up walking in the room. He was evaluated for possible inpatient rehab and is not a candidate at this time. He does not use any home oxygen. He has been using his incentive spirometer and pulling volumes of approximately 1000 ML's. Does have a congested cough that has been nonproductive. Patient did undergo a ultrasound of the chest this morning which did show bilateral pleural effusions right measuring 7.2 cm left measuring 7.3 cm. 02/01/18- please see Dr. Jono Jauregui note 02/02/18- patient is being seen examined and evaluated today on rounds. Patient sitting up in bed on 2 L of supplemental oxygen via nasal cannula. Chest x-ray from this morning does reveal small bilateral pleural effusions. He does have some shortness of breath with exertion however it is improving. He denies any cough or congestion at this time. Steroid to place continues to be tapered. 02/03/18- patient is being seen examined and evaluated on rounds. He is sitting up in bed on 2 L of supplemental oxygen via nasal cannula. Patient feels his breathing is improved to his family is at bedside and updated on plan of care. Discharge planning to rehab facility is currently in process. He is afebrile no further complaints all labs and reports have been reviewed. 02/04/18- patient is being seen examined and evaluated today on rounds. The patient was supposed to call to rehab today however overnight the patient did convert back into atrial fibrillation. He was started on IV amiodarone and will be transitioned back to oral amiodarone per cardiology. If the patient remains in atrial fibrillation over the weekend and does not convert he is planned to go for cardioversion on Wednesday. Patient's breathing has been relatively stable throughout this process. He continues on 2 L of oxygen via nasal cannula. Significant other is at bedside and has been updated on plan of care. At this time for my understanding discharge is on hold. Objective - Vital Signs Vital signs: Vital Signs Temp 97.8 F 02/04/18 11:26 Pulse 104 H 02/04/18 11:30 Resp 16 02/04/18 11:30 BP 96/81 02/04/18 11:26 Pulse Ox 96 02/04/18 11:26 Intake & Output 02/03/18 02/04/18 02/04/18 18:59 06:59 18:59 Intake Total 1080 750 229.979 Output Total 900 1400 Balance 180 -650 229.979 Weight 81.9 kg 81 kg Intake: IV 20 Invasive Line 4 20 Intake, IV Titration 209.979 Amount Amiodarone 450 mg In 209.979 Dextrose 5% in Water 250 ml @ 1 MG/MIN 33.33 mls/ hr IV .Q7H31M [facility] Rx#: [id number] Oral 1080 750 Output: Urine 900 1400 Other: Voiding Method Bedside Commode Bedside Commode Bedside Commode # Voids 1 # Bowel Movements 0 - Exam GENERAL EXAM: Alert, comfortable in no apparent distress. HEAD: Normocephalic. EYES: Normal reaction of pupils, equal size. NOSE: Clear with pink turbinates. THROAT: No erythema or exudates. NECK: No masses, no JVD. CHEST: No chest wall deformity. LUNGS: Lungs noted to have decreased air entry throughout. Bases diminished CVS: S1 and S2 normal with no audible mumurs, irregular rhythm. ABDOMEN: No hepatosplenomegaly, normal bowel sounds, no guarding or rigidity. EXTREMITIES: No edema noted, pedal pulses palpable. CENTRAL NERVOUS SYSTEM: No focal deficits, tone is normal in all 4 extremities. - Labs CBC & Chem 7: 02/01/18 06:24 02/01/18 06:24 Assessment and Plan Assessment: Assessment COPD with acute exacerbation Bilateral pleural effusions Chronic moderate pericardial effusion Congestive heart failure systolic with acute overload CAD UTI Metabolic encephalopathy Abdominal ascites Medical debility Plan Discharge is currently on hold related to the patient converting into an atrial fibrillation overnight. He was started on IV amiodarone. Patient could go for potential cardioversion on Wednesday with cardiology. Medications have been reviewed and will be continued as ordered. Steroid taper. Continue with diuresis. Ultrasound of bilateral lungs has been reviewed. CT of chest reviewed. Nephrology consultation patient is diuresing well. Chest x-ray is reviewed. Continue with pulmonary hygiene, coughing and deep breathing exercises, and supportive care. Supplemental oxygen to maintain oxygen saturations of 92% or better. Continue nebulizer treatments. GI and DVT prophylaxis. PT/OT. We will continue to monitor labs/results and adjust treatment as necessary. Further recommendations pending. I performed an examination of the patient and discussed their management with the nurse practitioner. I have reviewed the nurse practitioner's note and agree with the documented findings and plan of care.
[2018-02-04 12:19] LABS: Albumin 3.6 g/dL (3.5-5.0); Calcium 8.5 mg/dL (8.4-10.2); Potassium 4.4 mmol/L (3.5-5.1); Total Bilirubin 0.7 mg/dL (0.2-1.3); Total Protein 6.2 g/dL (6.3-8.2)
[2018-02-04] MEDS: traMADol 50 MG TAB PO PRN (13:03)
--- NOTE | 2018-02-04 14:49 | P.PN ---
Subjective Progress Note Date: 02/04/18 this is a 72 years old male with past medical history of hypertension , recent stroke 3 months ago patient of Dr. Metz care of guardian Etelvina last admitted in September for acute gastroenteritis comes in with shortness of breath that has been getting worse for the past few weeks. He denies any nausea or vomiting, lightheadedness or dizziness, no chest pain. chest x-ray done in the ER suggestive of mild CHF, labs were positive for a BNP of 6140 with normal troponin. Initial white is obtainable floor suggestive of a heart rate of 145, blood pressure 94/67 saturated room air 91%. Patient was seen by cardiology who suggested patient has atrial flutter. Will be taken for cardioversion tomorrow. Initiated on Celebrex Patient was initiated on Lasix 80 mg twice a day after a dose of Lasix. 01/27 Patient was noted to have some confusion last night, head CT ordered shows chronic white matter ischemic changes, old watershed infarct, and no acute intracranial changes. Today confusion has improved. Hypotension has improved, blood pressure 105/84 patient underwent TAIMR and cardioversion today. He had successful electrical cardioversion to sinus rhythm, patient noted to have severe cardiomyopathy on TAMIR. TAMIR shows left ventricular cavity is dilated with severe impaired left ventricular systolic function, moderate degree of mitral regurgitation, mild degree of tricuspid regurgitation. Echocardiogram reveals ejection fraction less than 20%, moderate left ventricular hypertrophy, LA is severely dialted, and moderate pericaridal effusion. 01/28 blood pressure on the lower side today. Patient is more confused than yesterday likely secondary to delirium. He does answer questions appropriately once disoriented. Pending for today. Neurology consulted. Patient has significant occlusion of the right common carotid artery external carotid artery and internal carotid artery with retrograde flow in the right vertebral artery representing subclavian steal syndrome. He has seen vascular surgery in the past who has recommended conservative management for the above. Metoprolol dose reduced to 12.5 mg twice daily. Amiodarone initiated at 200 mg daily Lasix held as patient has low blood pressure. Pericardial effusion documented on echocardiogram appears to be chronic secondary to viral infection. 01/29: Patient was seen at bedside he seems to be more confused today, appetite seems to be decreased, sitter at bedside, patient feels weak, unsteady on standing, balance impaired. Physical therapy requested, urine culture and sensitivity requested secondary to delirium, underlying dementia cannot be ruled out, no other neurologic focal deficits noted. Patient does not have any nausea no vomiting, no fever. Vascular has evaluated him, chronic right complete occlusion carotid stenosis no surgery required him and discussed with Dr. Kennedy. Orozco catheter has been placed secondary to urinary retention, postvoid residual over at least 300 mL, Orozco catheter in place patient on Flomax 01/30: Patient was a bit more dyspneic last night, patient required Lasix IV 40 mg last night, with additional 60 mg this morning, nebulized treatments this morning, patient has some bronchospasms, consult to Dr. Nathaly Rogers, CAT scan of the chest was requested, patient was placed on Rocephin for suspected urinary tract infection, cultures are currently pending, patient has increasing O2 requirements from 3 L this can lead to 5 L next cannula overnight, secondary to hypoxemia blood pressure remained stable at 121 systolic however he has low blood pressure around 84 systolic yesterday evening. Solu-Medrol 60 mg started for bronchospasms. 01/31 Patient was seen and evaluated today. He was noted to have large bilateral pleural effusions with multifocal subsegmental atelectasis, extensive bullous emphysematous changes, enlargement of the main pulmonary artery, extensive coronary artery calcifications, small abdominal ascities, right renal atrophy and nodularity of the left adrenal gland, and a small hiatal hernia on his CT scan. Will obtain an ultrasound of the thorax. Patient noted to be hypotensive , last reading 86/51, will treat with Midodrine 10mg TID. Physcial therapy evaluated patient today, he does not require physical assistance, thus does not meet criteria for inpatient rehab. 02/01: Patient was evaluated today, he was noted to be resting in bed with family at bedside. Patient was encouraged to ambulate. Will discontinue Orozco catheter tomorrow. Ultrasound of the thorax revealed moderate bilateral pleural effusions, pulmonology's consult appreciated. Recommends to continue with diuresis, if no response, then possible thoracentesis. Encouraged to use incentive spirometer at the bedside. We'll repeat a chest x-ray tomorrow. 02/02: Patient is seen and followed by Dr. Marin with recommendations to continue Lasix which is 40 mg twice daily. We will change Solu-Medrol over to oral prednisone. Repeat chest x-ray shows small bilateral pleural effusions with minimal bibasilar infiltrates likely compressive atelectasis. Patient is requesting discharge to [facility] for subacute rehab. We have asked for authorization to be obtained as expectation is that [employer] will take at least 24 hours or more to provide authorization. Orozco catheter to be removed. 02/03: Medication reconciliation completed. Patient is ambulating well with PT. He has been able to void since orozco removed. Patient will be discharged to [facility] today in stable condition. All arrangements were completed to discharge patient to [facility] but we are waiting for insurance authorization. Patient denies any new complaints. Breathing status is stable. Patient will be discharged once insurance authorization is completed. 02/04: Insurance authorization for subacute rehab was obtained this morning but patient was found to be in atrial fibrillation with RVR and he was started on amiodarone drip. Patient was previously on oral amiodarone. He has been seen by Dr. Sneed with plan to cardiovert on Wednesday if he remains in atrial fibrillation. Patient's pulse oxing 96% on room air and tolerating well. Objective - Vital Signs Vital signs: Vital Signs Temp 97.8 F 02/04/18 11:26 Pulse 104 H 02/04/18 11:30 Resp 16 02/04/18 11:30 BP 96/81 02/04/18 11:26 Pulse Ox 96 02/04/18 11:26 Intake & Output 02/03/18 02/04/18 02/04/18 18:59 06:59 18:59 Intake Total 1080 750 670.000 Output Total 900 1400 Balance 180 -650 670.000 Weight 81.9 kg 81 kg Intake: IV 20 Invasive Line 4 20 Intake, IV Titration 250.000 Amount Amiodarone 450 mg In 250.000 Dextrose 5% in Water 250 ml @ 1 MG/MIN 33.33 mls/ hr IV .Q7H31M [facility] Rx#: [id number] Oral 1080 750 400 Output: Urine 900 1400 Other: Voiding Method Bedside Commode Bedside Commode Bedside Commode # Voids 1 1 # Bowel Movements 0 - Exam - Constitutional General appearance: cooperative, no acute distress, obese - EENT Eyes: anicteric sclerae, PERRLA, normal appearance ENT: hearing grossly normal - Neck Neck: no lymphadenopathy, normal ROM, no other, no rigidity, no stridor, no thyromegaly - Respiratory Respiratory: bilateral: CTA with bibasilar crackles present on examination, negative: diminished, dullnes - Cardiovascular Rhythm: regular Heart sounds: normal: S1, S2 Abnormal Heart Sounds: no systolic murmur, no diastolic murmur, no rub, no S3 Gallop, no S4 Gallop, no click, no other - Gastrointestinal General gastrointestinal: normal bowel sounds, soft - Integumentary Integumentary: no rash - Neurologic Neurologic: CNII-XII intact - Musculoskeletal Musculoskeletal: strength equal bilaterally - Psychiatric Psychiatric: A&O x's 3, appropriate affect - Labs CBC & Chem 7: 02/01/18 06:24 02/04/18 11:30 Labs: Abnormal Lab Results - Last 24 Hours (Table) 02/04/18 Range/Units 11:30 Sodium 132 L (137-145) mmol/L Chloride 88 L (98-107) mmol/L Carbon Dioxide 35 H (22-30) mmol/L BUN 31 H (9-20) mg/dL AST 79 H (17-59) U/L ALT 221 H (21-72) U/L Total Protein 6.2 L (6.3-8.2) g/dL Assessment and Plan Plan: 1 Acute systolic heart failure. Previous echo was normal, there is reduction in ejection fraction in this admission with an EF <20%. TAMIR shows severe cardiomyopathy with moderate pericardial effusion which is likely chronic. Receiving Lasix 40 mg by mouth twice a day. Consult with Dr. Tomas street. Cardiology is following. 2 hypotention likely secondary to dehydration and atrial flutter, blood pressure has improved slightly with fluids. Hydrated and stabilized, Lasix has to be restarted secondary to dyspnea and pleural effusion, CHF metoprolol XL 25 mg daily, Midodrine 10mg TID added. Blood pressure stable. 3 New atrial flutter s/p cardioversion with episode of A. fib with RVR- Patient underwent previous cardioversion to sinus rhythm and Dr. Sneed plans to repeat cardioversion on Wednesday if he remains in atrial fibrillation. Continue amiodarone drip, eliquis 5 mg twice a day. 4 hypertension-continue home medications including metoprolol. 6. 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 Follows with Dr. Kennedy. Patient also follow Dr. Jones who recommended conservative management 10 GI prophylaxis Pepcid 20 mg po twice a day 11 DVT prophylaxis on eliquis 12 code status full code 13. Acute delirium. CT head negative for any acute abnormality. EEG does not show any focal, lateralized, or epileptiform abnormalities. urinalysis obtained 01/29, has some pyuria, urine cultures were sent, IV antibiotics Rocephin started 14 impaired balance, physical therapy and occupational therapies to see the patient, skilled therapies expected, patient does not meet criteria for inpatient, will plan for subacute upon discharge 15 large pericardial effusion, moderate, no plans for surgical intervention patient currently is on diuretics cardiology following closely, pulmonary consulted Dr. Guanaco Rogers, u/s of thorax ordered 16 mild protein calorie malnutrition, patient has diminished appetite, nutritional supplementation and requested 17 acute transaminitis most likely secondary to right-sided heart failure, levels are trending downward 18 acute kidney injury and CKD stage II most likely secondary to postobstructive issues, along with ATN with hypotension,, monitor for post void residual after Orozco catheter would be discontinued, continue to monitor chemistries. Consult with Dr. Tomas street. 19 pyuria with BPH and lower urinary tract symptomatology, causing delirium, patient will be started on IV Rocephin, cephalosporins oral on discharge 20 COPD exacerbation, Solu-Medrol changed to oral prednisone for the morning and continue nebulized albuterol Atrovent, 21 abdominal ascites noted on CAT scan, most likely secondary to hypoalbuminemia , however other pathologies are not excluded, IV Lasix, continue to monitor 22 Coronary artery calcifications,/CAD, Discharge plan: [facility] under the care of Dr. Henry early next week Impression and plan of care have been directed as dictated by the signing physician. Etelvina Gallegos nurse practitioner acting as scribe for signing physician.
[2018-02-04] MEDS: LOSARTAN 25 MG TAB PO SCH (18:11)
[2018-02-04] MEDS: MONTELUKAST 10 MG TAB PO SCH (20:37)
[2018-02-04] MEDS: ATORVASTATIN 40 MG TAB PO SCH (20:37)
[2018-02-05] MEDS: traMADol 50 MG TAB PO PRN ×3 (02:47→19:02)
[2018-02-05] MEDS: AMIODARONE 450 MG in DEXTROSE 5% IN WATER 250 ML IV SCH ×2 (05:35)
[2018-02-05 06:06] LABS: Basophils % (A) 0 %; Eosinophils # (A) 0.1 k/uL (0-0.7); Eosinophils % (A) 1 %; HCT 41.5 % (39.0-53.0); HGB 12.7 gm/dL (13.0-17.5); Hypochromasia Marked; Lymphocytes # (A) 1.8 k/uL (1.0-4.8); Lymphocytes % (A) 17 %; MCH 26.2 pg (25.0-35.0); MCHC 30.6 g/dL (31.0-37.0); MCV 85.5 fL (80.0-100.0); Mean Platelet Volume 8.7; Monocytes # (A) 0.9 k/uL (0-1.0); Monocytes % (A) 9 %; Neutrophils # (A) 7.5 k/uL (1.3-7.7); Neutrophils % (A) 71 %; Platelet Count 240 k/uL (150-450); RBC 4.85 m/uL (4.30-5.90); RDW 15.3 % (11.5-15.5); WBC 10.5 k/uL (3.8-10.6)
[2018-02-05] MEDS: MIDODRINE 5 MG TAB PO SCH ×3 (06:26→16:40)
[2018-02-05] MEDS: cefTRIAXone IN SWFI 1,000 MG/10 ML SYRINGE IVP SCH (07:54)
[2018-02-05] MEDS: NICOTINE 21MG/24HR PATCH TRANSDERM SCH (07:54)
[2018-02-05] MEDS: APIXABAN 5 MG TAB PO SCH ×2 (07:55→20:26)
[2018-02-05] MEDS: SPIRONOLACTONE 25 MG TAB PO SCH (07:55)
[2018-02-05] MEDS: METOPROLOL SUCCINATE (ER) 25 MG TAB.ER.24H PO SCH (07:55)
[2018-02-05] MEDS: TAMSULOSIN 0.4 MG CAP.ER.24H PO SCH (07:55)
[2018-02-05] MEDS: predniSONE 20 MG TAB PO SCH (07:55)
[2018-02-05] MEDS: FAMOTIDINE 20 MG TAB PO SCH ×2 (07:56→20:26)
[2018-02-05] MEDS: FINASTERIDE 5 MG TAB PO SCH (07:56)
[2018-02-05] MEDS: AMIODARONE 200 MG TAB PO SCH (07:56)
[2018-02-05] MEDS: LOSARTAN 25 MG TAB PO SCH (07:56)
[2018-02-05] MEDS: FUROSEMIDE 40 MG TAB PO SCH ×2 (07:57→14:56)
[2018-02-05] MEDS: guaiFENesin 600 MG TABLET.ER PO SCH ×3 (07:57→20:26)
[2018-02-05] MEDS: IPRATROPIUM-ALBUTEROL 3 ML NEB INHALATION SCH ×4 (09:03→19:37)
[2018-02-05] MEDS: BUDESONIDE 0.5 MG/2 ML NEBU INHALATION SCH ×2 (09:03→19:37)
--- NOTE | 2018-02-05 10:56 | P.PN ---
Subjective Progress Note Date: 02/05/18 Principal diagnosis: HPI: is a 73-year-old male who presented to [facility] on 2017 at that time he had been complaining of shortness of breath and had been getting worse over the next couple of weeks prior to coming in. He does have history of COPD and has been taking his nebulizer treatments and albuterol. Today he is quite confused and shortness breath as well. He denies any chest pain at this time. 01/31/18- patient has been seen and examined and evaluated on rounds. He is resting up in bed on 3 L of supplemental oxygen via nasal cannula. He has been up walking in the room. He was evaluated for possible inpatient rehab and is not a candidate at this time. He does not use any home oxygen. He has been using his incentive spirometer and pulling volumes of approximately 1000 ML's. Does have a congested cough that has been nonproductive. Patient did undergo a ultrasound of the chest this morning which did show bilateral pleural effusions right measuring 7.2 cm left measuring 7.3 cm. 02/01/18- please see Dr. Jono Jauregui note 02/02/18- patient is being seen examined and evaluated today on rounds. Patient sitting up in bed on 2 L of supplemental oxygen via nasal cannula. Chest x-ray from this morning does reveal small bilateral pleural effusions. He does have some shortness of breath with exertion however it is improving. He denies any cough or congestion at this time. Steroid to place continues to be tapered. 02/03/18- patient is being seen examined and evaluated on rounds. He is sitting up in bed on 2 L of supplemental oxygen via nasal cannula. Patient feels his breathing is improved to his family is at bedside and updated on plan of care. Discharge planning to rehab facility is currently in process. He is afebrile no further complaints all labs and reports have been reviewed. 02/04/18- patient is being seen examined and evaluated today on rounds. The patient was supposed to call to rehab today however overnight the patient did convert back into atrial fibrillation. He was started on IV amiodarone and will be transitioned back to oral amiodarone per cardiology. If the patient remains in atrial fibrillation over the weekend and does not convert he is planned to go for cardioversion on Wednesday. Patient's breathing has been relatively stable throughout this process. He continues on 2 L of oxygen via nasal cannula. Significant other is at bedside and has been updated on plan of care. At this time for my understanding discharge is on hold. 02/05/2018: Patient seen and examined. Patient is currently on room air. Patient states that he feels like he has a lot of congestion. He states that his breathing is just so-so today. The patient states she is frustrated because he was supposed to go to rehab. Objective - Vital Signs Vital signs: Vital Signs Temp 97.0 F L 02/05/18 08:00 Pulse 68 02/05/18 09:05 Resp 18 02/05/18 08:00 BP 105/70 02/05/18 08:00 Pulse Ox 95 02/05/18 09:05 Intake & Output 02/04/18 02/05/18 02/05/18 18:59 06:59 18:59 Intake Total 910.000 347.449 Output Total 1100 Balance 910.000 -752.551 Weight 77.5 kg Intake: IV 20 Invasive Line 4 20 Intake, IV Titration 250.000 127.449 Amount Amiodarone 450 mg In 250.000 127.449 Dextrose 5% in Water 250 ml @ 1 MG/MIN 33.33 mls/ hr IV .Q7H31M [facility] Rx#: [id number] Oral 640 220 Output: Urine 1100 Other: Voiding Method Bedside Commode Bedside Commode # Voids 1 - Exam GENERAL EXAM: Alert, comfortable in no apparent distress. HEAD: Normocephalic. EYES: Normal reaction of pupils, equal size. NOSE: Clear with pink turbinates. THROAT: No erythema or exudates. NECK: No masses, no JVD. CHEST: No chest wall deformity. LUNGS: Lungs noted to have decreased air entry throughout. Bases diminished CVS: S1 and S2 normal with no audible mumurs, irregular rhythm. ABDOMEN: No hepatosplenomegaly, normal bowel sounds, no guarding or rigidity. EXTREMITIES: No edema noted, pedal pulses palpable. CENTRAL NERVOUS SYSTEM: No focal deficits, tone is normal in all 4 extremities - Labs CBC & Chem 7: 02/05/18 05:41 02/04/18 11:30 Labs: Abnormal Lab Results - Last 24 Hours (Table) 03/16/18 03/17/18 Range/Units 11:30 05:41 Hgb 12.7 L (13.0-17.5) gm/dL MCHC 30.6 L (31.0-37.0) g/dL Sodium 132 L (137-145) mmol/L Chloride 88 L (98-107) mmol/L Carbon Dioxide 35 H (22-30) mmol/L BUN 31 H (9-20) mg/dL AST 79 H (17-59) U/L ALT 221 H (21-72) U/L Total Protein 6.2 L (6.3-8.2) g/dL Assessment and Plan Assessment: COPD with acute exacerbation Bilateral pleural effusions Chronic moderate pericardial effusion Congestive heart failure systolic with acute overload CAD UTI Metabolic encephalopathy Abdominal ascites Medical debility Atrial fibrillation Plan Discharge is currently on hold. Amiodarone per cardiology. Patient could go for potential cardioversion on Wednesday with cardiology. Medications have been reviewed and will be continued as ordered. Steroid taper. Continue with diuresis. Ultrasound of bilateral lungs has been reviewed. CT of chest reviewed. Nephrology consultation patient is diuresing well. Chest x-ray is reviewed. Continue with pulmonary hygiene, coughing and deep breathing exercises, and supportive care. Supplemental oxygen to maintain oxygen saturations of 92% or better. Continue nebulizer treatments. GI and DVT prophylaxis. PT/OT. We will continue to monitor labs/results and adjust treatment as necessary. Repeat CXR today. Flutter tx and Mucinex. patient encouraged to do deep breathing and coughing.
--- NOTE | 2018-02-05 11:24 | P.PN ---
Subjective Progress Note Date: 02/05/18 Principal diagnosis: Systolic congestive heart failure Patient reported some improvement in his appetite in the last 24 hours decreased the feeding of nausea and patient feels better overall and stronger. Patient was up to the bedside commode with assistance and denying chest pain, shortness breath, nausea, vomiting, dumping, dizziness, lightheadedness or blurry vision. Patient with no major events overnight Objective - Vital Signs Vital signs: Vital Signs Temp 97.0 F L 02/05/18 08:00 Pulse 68 02/05/18 09:05 Resp 18 02/05/18 08:00 BP 105/70 02/05/18 08:00 Pulse Ox 95 02/05/18 09:05 Intake & Output 02/04/18 02/05/18 02/05/18 18:59 06:59 18:59 Intake Total 910.000 347.449 Output Total 1100 Balance 910.000 -752.551 Weight 77.5 kg Intake: IV 20 Invasive Line 4 20 Intake, IV Titration 250.000 127.449 Amount Amiodarone 450 mg In 250.000 127.449 Dextrose 5% in Water 250 ml @ 1 MG/MIN 33.33 mls/ hr IV .Q7H31M [facility] Rx#: [id number] Oral 640 220 Output: Urine 1100 Other: Voiding Method Bedside Commode Bedside Commode # Voids 1 - Exam Gen.: in stated age, no acute distress Heart: Normal S1-S2 Lungs: Diminished bilaterally Abdomen: Soft, no tenderness, positive bowel sounds in all 4 quadrant no guarding or rebound Skin: No new rash Psych: Alert and oriented 3 Neuro: No focal deficit Lower extremity bilateral edema - Labs CBC & Chem 7: 02/05/18 05:41 02/04/18 11:30 Labs: Abnormal Lab Results - Last 24 Hours (Table) 02/04/18 02/05/18 Range/Units 11:30 05:41 Hgb 12.7 L (13.0-17.5) gm/dL MCHC 30.6 L (31.0-37.0) g/dL Sodium 132 L (137-145) mmol/L Chloride 88 L (98-107) mmol/L Carbon Dioxide 35 H (22-30) mmol/L BUN 31 H (9-20) mg/dL AST 79 H (17-59) U/L ALT 221 H (21-72) U/L Total Protein 6.2 L (6.3-8.2) g/dL Assessment and Plan Assessment: 1. Acute systolic heart failure exacerbation with low ejection fraction. 2. Dyspnea. 3. Borderline blood pressure. 4. New onset atrial flutter. 5. Anxiety and depression. 6. Benign prostatic hypertrophy. 7. Peripheral arterial disease. We will continue cardioprotective medication, continue diuretics, continue monitoring daily weight and I's and O's. We'll have physical therapy evaluate the patient prior to discharge and consider discharging patients to rehab further recommendation. With continue on Ticlid regulation per cardiology recommendation. Prognosis is fair
--- NOTE | 2018-02-05 11:37 | P.PN ---
Subjective Progress Note Date: 02/05/18 Principal diagnosis: CHF This is a 73-year-old gentleman with history of hypertension, recent stroke, COPD, nicotine dependence, who presented to the hospital with symptoms of shortness of breath. He was seen in consultation by Dr. Sneed on arrival here, found to be in atrial flutter, patient underwent cardioversion. He was seen and examined this morning continues to be in normal sinus rhythm. He does state overall that his breathing is significantly improved. Blood pressure 90/ 50 with a heart rate in the 70s, 91% on 2 L of oxygen. White blood cell count 13.2, hemoglobin 13.3, sodium 134, potassium 4.2, BUN 20, creatinine 0.8. 02/04/2018 Patient was seen and examined this morning, went back into atrial fibrillation with rapid ventricular response through the night last night and was initiated on IV amiodarone. His by mouth amiodarone is currently on hold. He continues to be in atrial fibrillation this morning. If the patient remains in atrial fibrillation on by Wednesday, Dr. Sneed will consider repeating the cardioversion. Blood pressure 102/60, heart rate low 100s this morning, 96% on 2 L of oxygen. 02/05/2018 Patient was seen and examined this morning, continues to be in atrial fibrillation on IV amiodarone. Once the IV amiodarone is infused, patient will be initiated on oral and me on. If the patient continues to be in atrial fibrillation, Dr. Sneed may repeat a cardioversion on Wednesday, we will keep him nothing by mouth at midnight on Wednesday and further evaluate. Overall the patient feels well, no complaints. Objective - Vital Signs Vital signs: Vital Signs Temp 97.0 F L 02/05/18 08:00 Pulse 68 02/05/18 09:05 Resp 18 02/05/18 08:00 BP 105/70 02/05/18 08:00 Pulse Ox 95 02/05/18 09:05 Intake & Output 02/04/18 02/05/18 02/05/18 18:59 06:59 18:59 Intake Total 910.000 347.449 Output Total 1100 Balance 910.000 -752.551 Weight 77.5 kg Intake: IV 20 Invasive Line 4 20 Intake, IV Titration 250.000 127.449 Amount Amiodarone 450 mg In 250.000 127.449 Dextrose 5% in Water 250 ml @ 1 MG/MIN 33.33 mls/ hr IV .Q7H31M [facility] Rx#: [id number] Oral 640 220 Output: Urine 1100 Other: Voiding Method Bedside Commode Bedside Commode # Voids 1 - Exam PHYSICAL EXAMINATION: HEENT: Head is atraumatic, normocephalic. Pupils equal, round. Neck is supple. There is no elevated jugular venous pressure. HEART EXAMINATION: Heart S1, S2 irregularly irregular . No murmur or gallop heard. CHEST EXAMINATION: Lungs reveal crackles to bilateral bases, with diminished air entry to the bases. ABDOMEN: Soft, nontender. Bowel sounds are heard. No organomegaly noted. EXTREMITIES: 2+ peripheral pulses with no evidence of peripheral edema and no calf tenderness noted. NEUROLOGIC patient is awake, alert and oriented -3. . - Labs CBC & Chem 7: 02/05/18 05:41 02/04/18 11:30 Labs: Abnormal Lab Results - Last 24 Hours (Table) 02/04/18 02/05/18 Range/Units 11:30 05:41 Hgb 12.7 L (13.0-17.5) gm/dL MCHC 30.6 L (31.0-37.0) g/dL Sodium 132 L (137-145) mmol/L Chloride 88 L (98-107) mmol/L Carbon Dioxide 35 H (22-30) mmol/L BUN 31 H (9-20) mg/dL AST 79 H (17-59) U/L ALT 221 H (21-72) U/L Total Protein 6.2 L (6.3-8.2) g/dL Assessment and Plan Plan: Assessment and plan #1 systolic congestive heart failure acute on chronic, prior echo was normal, there is reduction in ejection fraction on this admission with an EF of less than 20. #2 paroxysmal atrial flutter, typical, status post cardioversion to normal sinus rhythm #3 hypertension #4 TIA # 5 pericardial effusion #6 acute renal insufficiency, stage II #7 COPD exacerbation Plan Continue maximum heart failure medications, anticoagulation long-term. Initiate oral amiodarone. If patient remains in atrial fibrillation Dr. Sneed we'll perform cardioversion on Wednesday. We will keep the patient nothing by mouth Wednesday night. DNP note has been reviewed, I agree with a documented findings and plan of care. Patient was seen and examined.
--- NOTE | 2018-02-05 12:14 | XR ---
EXAMINATION TYPE: XR chest 2V DATE OF EXAM: 02/05/2018 HISTORY: pleural effusions, CHF, COPD. REFERENCE: Previous study dated 02/02/2018. FINDINGS: The lungs are overinflated. The heart is upper limits of normal in size. There are small, b ilateral effusions. There is left basilar infiltrate. There is improved aeration at the right lung ba se. IMPRESSION: 1. COPD. 2. SMALL EFFUSIONS. 3. IMPROVED AERATION, RIGHT LUNG BASE.
[2018-02-05] MEDS: ALPRAZolam 0.25 MG TAB PO PRN (16:39)
[2018-02-05] MEDS: MONTELUKAST 10 MG TAB PO SCH (20:26)
[2018-02-05] MEDS: ATORVASTATIN 40 MG TAB PO SCH (20:26)
[2018-02-06] MEDS: traMADol 50 MG TAB PO PRN ×3 (07:06→21:58)
[2018-02-06] MEDS: MIDODRINE 5 MG TAB PO SCH ×3 (07:06→17:05)
[2018-02-06] MEDS: BUDESONIDE 0.5 MG/2 ML NEBU INHALATION SCH ×2 (07:47→19:23)
[2018-02-06] MEDS: IPRATROPIUM-ALBUTEROL 3 ML NEB INHALATION SCH ×3 (07:47→19:23)
[2018-02-06] MEDS: FUROSEMIDE 40 MG TAB PO SCH ×2 (08:14→15:12)
[2018-02-06] MEDS: guaiFENesin 600 MG TABLET.ER PO SCH ×2 (08:14→20:12)
[2018-02-06] MEDS: LOSARTAN 25 MG TAB PO SCH (08:15)
[2018-02-06] MEDS: predniSONE 10 MG TAB PO SCH (08:15)
[2018-02-06] MEDS: FINASTERIDE 5 MG TAB PO SCH (08:15)
[2018-02-06] MEDS: SPIRONOLACTONE 25 MG TAB PO SCH (08:15)
[2018-02-06] MEDS: cefTRIAXone IN SWFI 1,000 MG/10 ML SYRINGE IVP SCH (08:15)
[2018-02-06] MEDS: FAMOTIDINE 20 MG TAB PO SCH ×2 (08:15→20:12)
[2018-02-06] MEDS: METOPROLOL SUCCINATE (ER) 25 MG TAB.ER.24H PO SCH (08:15)
[2018-02-06] MEDS: AMIODARONE 200 MG TAB PO SCH (08:15)
[2018-02-06] MEDS: TAMSULOSIN 0.4 MG CAP.ER.24H PO SCH (08:15)
[2018-02-06] MEDS: APIXABAN 5 MG TAB PO SCH ×2 (08:15→20:12)
[2018-02-06] MEDS: ALPRAZolam 0.25 MG TAB PO PRN (08:16)
[2018-02-06] MEDS: NICOTINE 21MG/24HR PATCH TRANSDERM SCH (08:16)
--- NOTE | 2018-02-06 11:55 | P.PN ---
Subjective Progress Note Date: 02/06/18 HPI: is a 73-year-old male who presented to [facility] on 2017 at that time he had been complaining of shortness of breath and had been getting worse over the next couple of weeks prior to coming in. He does have history of COPD and has been taking his nebulizer treatments and albuterol. Today he is quite confused and shortness breath as well. He denies any chest pain at this time. 01/31/18- patient has been seen and examined and evaluated on rounds. He is resting up in bed on 3 L of supplemental oxygen via nasal cannula. He has been up walking in the room. He was evaluated for possible inpatient rehab and is not a candidate at this time. He does not use any home oxygen. He has been using his incentive spirometer and pulling volumes of approximately 1000 ML's. Does have a congested cough that has been nonproductive. Patient did undergo a ultrasound of the chest this morning which did show bilateral pleural effusions right measuring 7.2 cm left measuring 7.3 cm. 02/01/18- please see Dr. Jono Jauregui note 02/02/18- patient is being seen examined and evaluated today on rounds. Patient sitting up in bed on 2 L of supplemental oxygen via nasal cannula. Chest x-ray from this morning does reveal small bilateral pleural effusions. He does have some shortness of breath with exertion however it is improving. He denies any cough or congestion at this time. Steroid to place continues to be tapered. 02/03/18- patient is being seen examined and evaluated on rounds. He is sitting up in bed on 2 L of supplemental oxygen via nasal cannula. Patient feels his breathing is improved to his family is at bedside and updated on plan of care. Discharge planning to rehab facility is currently in process. He is afebrile no further complaints all labs and reports have been reviewed. 02/04/18- patient is being seen examined and evaluated today on rounds. The patient was supposed to call to rehab today however overnight the patient did convert back into atrial fibrillation. He was started on IV amiodarone and will be transitioned back to oral amiodarone per cardiology. If the patient remains in atrial fibrillation over the weekend and does not convert he is planned to go for cardioversion on [place]. Patient's breathing has been relatively stable throughout this process. He continues on 2 L of oxygen via nasal cannula. Significant other is at bedside and has been updated on plan of care. At this time for my understanding discharge is on hold. 02/05/2018: Patient seen and examined. Patient is currently on room air. Patient states that he feels like he has a lot of congestion. He states that his breathing is just so-so today. The patient states she is frustrated because he was supposed to go to rehab. 02/06/2018: Patient seen and examined. Patient is currently on room air. Patient states that he is feeling much better today. He states he wants to go home soon. His cough is improving. He denies fevers and chills. Objective - Vital Signs Vital signs: Vital Signs Temp 97.4 F L 02/06/18 08:00 Pulse 100 02/06/18 11:07 Resp 18 02/06/18 08:00 BP 105/72 02/06/18 08:00 Pulse Ox 96 02/06/18 08:00 Intake & Output 02/05/18 02/06/18 02/06/18 18:59 06:59 18:59 Intake Total 720 660 360 Output Total 900 200 Balance 720 -240 160 Weight 80.3 kg Intake: Oral 720 660 360 Output: Urine 900 200 Other: Voiding Method Bedside Commode # Voids 6 - Exam GENERAL EXAM: Alert, comfortable in no apparent distress. HEAD: Normocephalic. EYES: Normal reaction of pupils, equal size. NOSE: Clear with pink turbinates. THROAT: No erythema or exudates. NECK: No masses, no JVD. CHEST: No chest wall deformity. LUNGS: Lungs noted to have decreased air entry throughout. Bases diminished CVS: S1 and S2 normal with no audible mumurs, irregular rhythm. ABDOMEN: No hepatosplenomegaly, normal bowel sounds, no guarding or rigidity. EXTREMITIES: No edema noted, pedal pulses palpable. CENTRAL NERVOUS SYSTEM: No focal deficits, tone is normal in all 4 extremities - Labs CBC & Chem 7: 02/05/18 05:41 02/04/18 11:30 Assessment and Plan Assessment: COPD with acute exacerbation Bilateral pleural effusions Chronic moderate pericardial effusion Congestive heart failure systolic with acute overload CAD UTI Metabolic encephalopathy Abdominal ascites Medical debility Atrial fibrillation Plan Discharge is currently on hold. Amiodarone per cardiology. Patient could go for potential cardioversion on Wednesday with cardiology. Medications have been reviewed and will be continued as ordered. Steroid taper. Continue with diuresis. Ultrasound of bilateral lungs has been reviewed. CT of chest reviewed. Nephrology consultation patient is diuresing well. Chest x-ray is reviewed. Continue with pulmonary hygiene, coughing and deep breathing exercises, and supportive care. Supplemental oxygen to maintain oxygen saturations of 92% or better. Continue nebulizer treatments. GI and DVT prophylaxis. PT/OT. We will continue to monitor labs/results and adjust treatment as necessary. Flutter tx and Mucinex. patient encouraged to do deep breathing and coughing. CXR today.
--- NOTE | 2018-02-06 14:15 | P.PN ---
Subjective Progress Note Date: 02/06/18 Mr. Allen is seen and examined today resting comfortably in bed with family at the bedside. He continues to be in atrial fibrillation with controlled ventricular response. His amiodarone has been transitioned to oral. Blood pressure 105/72 heart rate 63 afebrile maintaining oxygen saturation on room air. Hemoglobin 12.7, platelets 240. Objective - Vital Signs Vital signs: Vital Signs Temp 97.0 F L 02/06/18 11:52 Pulse 97 02/06/18 11:52 Resp 18 02/06/18 11:52 BP 76/52 02/06/18 11:52 Pulse Ox 95 02/06/18 11:52 Intake & Output 02/05/18 02/06/18 02/06/18 18:59 06:59 18:59 Intake Total 720 660 600 Output Total 900 200 Balance 720 -240 400 Weight 80.3 kg Intake: Oral 720 660 600 Output: Urine 900 200 Other: Voiding Method Bedside Commode # Voids 6 - Exam GENERAL: Well-appearing, well-nourished and in no acute distress. NECK: Supple without JVD or thyromegaly. LUNGS: Breath sounds clear to auscultation bilaterally. Respiration equal and unlabored. No wheezes, rales or rhonchi. HEART: Irregular rate and rhythm without murmurs, rubs or gallops. S1 and S2 heard. EXTREMITIES: Normal range of motion, no edema. No clubbing or cyanosis. Peripheral pulses intact and strong. - Labs CBC & Chem 7: 02/05/18 05:41 02/04/18 11:30 Assessment and Plan Assessment: ASSESSMENT #1 systolic congestive heart failure acute on chronic, prior echo was normal, there is reduction in ejection fraction on this admission with an EF of less than 20. #2 paroxysmal atrial flutter, typical, status post cardioversion to normal sinus rhythm #3 hypertension #4 TIA # 5 pericardial effusion #6 acute renal insufficiency, stage II #7 COPD exacerbation PLAN Nothing by mouth after midnight for cardioversion tomorrow with Dr. Sigala. Continue with amiodarone and anticoagulation as as previously ordered. The above impression and plan of care have been discussed and directed by the signing physician. Dianelys Wilkinson, nurse practitioner, acting as scribe for signing physician.
--- NOTE | 2018-02-06 14:50 | XR ---
EXAMINATION TYPE: XR chest 2V DATE OF EXAM: 02/06/2018 COMPARISON: 02/05/2018 HISTORY: Congestive heart failure, COPD and shortness of breath. TECHNIQUE: Frontal and lateral views of the chest are obtained. FINDINGS: There is redemonstration of pulmonary hyperinflation and trace pleural effusions with card iomegaly. Bibasilar airspace disease is similar in favored to represent atelectasis. Moderate multile cale degenerative changes of thoracic spine are seen. Increased anterior posterior diameter of the purvi st is noted. IMPRESSION: Similar-appearing trace pleural effusions and bibasilar airspace disease favored to repr esent atelectasis.
[2018-02-06] MEDS: ATORVASTATIN 40 MG TAB PO SCH (20:12)
[2018-02-06] MEDS: MONTELUKAST 10 MG TAB PO SCH (20:12)
--- NOTE | 2018-02-06 20:47 | P.PN ---
Subjective Progress Note Date: 02/06/18 Principal diagnosis: Systolic congestive heart failure Patient reported some improvement in his appetite in the last 24 hours denying nausea and patient feels better overall and stronger. Patient feels better and denying chest pain, shortness breath, nausea, vomiting, dumping, dizziness, lightheadedness or blurry vision. Patient with no major events overnight Objective - Vital Signs Vital signs: Vital Signs Temp 96.3 F L 02/06/18 16:00 Pulse 100 02/06/18 19:34 Resp 16 02/06/18 19:34 BP 70/51 02/06/18 16:00 Pulse Ox 97 02/06/18 16:00 Intake & Output 02/06/18 02/06/18 02/07/18 06:59 18:59 06:59 Intake Total 660 960 Output Total 900 200 Balance -240 760 Weight 80.3 kg Intake: Oral 660 960 Output: Urine 900 200 Other: Voiding Method Bedside Commode - Exam Gen.: in stated age, no acute distress Heart: Normal S1-S2 Lungs: Diminished bilaterally Abdomen: Soft, no tenderness, positive bowel sounds in all 4 quadrant no guarding or rebound Skin: No new rash Psych: Alert and oriented 3 Neuro: No focal deficit Lower extremity bilateral edema - Labs CBC & Chem 7: 02/05/18 05:41 02/04/18 11:30 Assessment and Plan Assessment: 1. Acute systolic heart failure exacerbation with low ejection fraction. 2. Dyspnea. 3. Borderline blood pressure. 4. New onset atrial flutter. 5. Anxiety and depression. 6. Benign prostatic hypertrophy. 7. Peripheral arterial disease. We will continue cardioprotective medication, continue diuretics and switch to po, if pt stable will consider d/c in am per pt/ot recommendation, continue monitoring daily weight and I's and O's. We'll have physical therapy evaluate the patient prior to discharge and consider discharging patients to rehab further recommendation. With continue on Ticlid regulation per cardiology recommendation. Prognosis is fair
[2018-02-07] MEDS: MIDODRINE 5 MG TAB PO SCH ×3 (06:05→15:52)
[2018-02-07] MEDS: BUDESONIDE 0.5 MG/2 ML NEBU INHALATION SCH ×2 (09:07→20:33)
[2018-02-07] MEDS: IPRATROPIUM-ALBUTEROL 3 ML NEB INHALATION SCH ×4 (09:07→20:33)
[2018-02-07] MEDS: cefTRIAXone IN SWFI 1,000 MG/10 ML SYRINGE IVP SCH (09:16)
[2018-02-07] MEDS: AMIODARONE 200 MG TAB PO SCH (09:16)
[2018-02-07] MEDS: APIXABAN 5 MG TAB PO SCH ×2 (09:16→22:37)
[2018-02-07] MEDS: guaiFENesin 600 MG TABLET.ER PO SCH ×2 (09:17→22:37)
[2018-02-07] MEDS: FUROSEMIDE 40 MG TAB PO SCH ×2 (09:17→15:55)
[2018-02-07] MEDS: FINASTERIDE 5 MG TAB PO SCH (09:17)
[2018-02-07] MEDS: FAMOTIDINE 20 MG TAB PO SCH ×2 (09:17→22:37)
[2018-02-07] MEDS: LOSARTAN 25 MG TAB PO SCH (09:18)
[2018-02-07] MEDS: predniSONE 10 MG TAB PO SCH (09:19)
[2018-02-07] MEDS: SPIRONOLACTONE 25 MG TAB PO SCH (09:19)
[2018-02-07] MEDS: METOPROLOL SUCCINATE (ER) 25 MG TAB.ER.24H PO SCH (09:19)
[2018-02-07] MEDS: NICOTINE 21MG/24HR PATCH TRANSDERM SCH (09:19)
[2018-02-07] MEDS: TAMSULOSIN 0.4 MG CAP.ER.24H PO SCH (09:20)
[2018-02-07] MEDS: traMADol 50 MG TAB PO PRN ×3 (09:20→22:51)
--- NOTE | 2018-02-07 09:52 | P.DS ---
Providers Date of admission: 01/26/18 11:34 Expected date of discharge: 02/07/18 Attending physician: Aki Moura MD Consults: 01/25/18 14:45 Consult Physician Routine Consulting Provider: Abel Rogers Consult Reason/Comments: heart failure Do you want consulting provider notified?: Yes 01/27/18 15:08 Consult Physician Routine Consulting Provider: Michelle Hay Consult Reason/Comments: mental status change Do you want consulting provider notified?: Already Contacted 01/28/18 15:41 Consult Physician Stat Consulting Provider: Kevin Kennedy Consult Reason/Comments: critical carotid us. Do you want consulting provider notified?: Yes 01/29/18 19:47 Consult Physician Routine Consulting Provider: Manjeet Coronel Consult Reason/Comments: inpatient rehab, debility Do you want consulting provider notified?: Yes, Notify in am 01/30/18 09:38 Consult Physician Routine Consulting Provider: Tom Rogers Consult Reason/Comments: dyspnea effusion, hypoxemia Do you want consulting provider notified?: Yes 01/31/18 15:05 Consult Physician Stat Consulting Provider: Radha Marin Consult Reason/Comments: diuresis Do you want consulting provider notified?: Yes Primary care physician: Alexei [facility] Course: is is a 72 years old male with past medical history of hypertension, recent stroke 3 months ago patient of Dr. Metz care of [facility] last admitted in September for acute gastroenteritis comes in with shortness of breath that has been getting worse for the past few weeks. He denies any nausea or vomiting, lightheadedness or dizziness, no chest pain. chest x-ray done in the ER suggestive of mild CHF, labs were positive for a BNP of 6140 with normal troponin. Initial white is obtainable floor suggestive of a heart rate of 145, blood pressure 94/67 saturated room air 91%. Patient was seen by cardiology who suggested patient has atrial flutter. Will be taken for cardioversion tomorrow. Initiated on Celebrex Patient was initiated on Lasix 80 mg twice a day after a dose of Lasix. 01/27 Patient was noted to have some confusion last night, head CT ordered shows chronic white matter ischemic changes, old watershed infarct, and no acute intracranial changes. Today confusion has improved. Hypotension has improved, blood pressure 105/84 patient underwent TAMIR and cardioversion today. He had successful electrical cardioversion to sinus rhythm, patient noted to have severe cardiomyopathy on TAMIR. TAMIR shows left ventricular cavity is dilated with severe impaired left ventricular systolic function, moderate degree of mitral regurgitation, mild degree of tricuspid regurgitation. Echocardiogram reveals ejection fraction less than 20%, moderate left ventricular hypertrophy, LA is severely dialted, and moderate pericaridal effusion. 01/28 blood pressure on the lower side today. Patient is more confused than yesterday likely secondary to delirium. He does answer questions appropriately once disoriented. Pending for today. Neurology consulted. Patient has significant occlusion of the right common carotid artery external carotid artery and internal carotid artery with retrograde flow in the right vertebral artery representing subclavian steal syndrome. He has seen vascular surgery in the past who has recommended conservative management for the above. Metoprolol dose reduced to 12.5 mg twice daily. Amiodarone initiated at 200 mg daily Lasix held as patient has low blood pressure. Pericardial effusion documented on echocardiogram appears to be chronic secondary to viral infection. 01/29: Patient was seen at bedside he seems to be more confused today, appetite seems to be decreased, sitter at bedside, patient feels weak, unsteady on standing, balance impaired. Physical therapy requested, urine culture and sensitivity requested secondary to delirium, underlying dementia cannot be ruled out, no other neurologic focal deficits noted. Patient does not have any nausea no vomiting, no fever. Vascular has evaluated him, chronic right complete occlusion carotid stenosis no surgery required him and discussed with Dr. Kennedy. Orozco catheter has been placed secondary to urinary retention, postvoid residual over at least 300 mL, Orozco catheter in place patient on Flomax 01/30: Patient was a bit more dyspneic last night, patient required Lasix IV 40 mg last night, with additional 60 mg this morning, nebulized treatments this morning, patient has some bronchospasms, consult to Dr. Nathaly Rogers, CAT scan of the chest was requested, patient was placed on Rocephin for suspected urinary tract infection, cultures are currently pending, patient has increasing O2 requirements from 3 L this can lead to 5 L next cannula overnight, secondary to hypoxemia blood pressure remained stable at 121 systolic however he has low blood pressure around 84 systolic yesterday evening. Solu-Medrol 60 mg started for bronchospasms. 01/31 Patient was seen and evaluated today. He was noted to have large bilateral pleural effusions with multifocal subsegmental atelectasis, extensive bullous emphysematous changes, enlargement of the main pulmonary artery, extensive coronary artery calcifications, small abdominal ascities, right renal atrophy and nodularity of the left adrenal gland, and a small hiatal hernia on his CT scan. Will obtain an ultrasound of the thorax. Patient noted to be hypotensive , last reading 86/51, will treat with Midodrine 10mg TID. Physcial therapy evaluated patient today, he does not require physical assistance, thus does not meet criteria for inpatient rehab. 02/01: Patient was evaluated today, he was noted to be resting in bed with family at bedside. Patient was encouraged to ambulate. Will discontinue Orozco catheter tomorrow. Ultrasound of the thorax revealed moderate bilateral pleural effusions, pulmonology's consult appreciated. Recommends to continue with diuresis, if no response, then possible thoracentesis. Encouraged to use incentive spirometer at the bedside. We'll repeat a chest x-ray tomorrow. 02/02: Patient is seen and followed by Dr. Marin with recommendations to continue Lasix which is 40 mg twice daily. We will change Solu-Medrol over to oral prednisone. Repeat chest x-ray shows small bilateral pleural effusions with minimal bibasilar infiltrates likely compressive atelectasis. Patient is requesting discharge to [facility] for subacute rehab. We have asked for authorization to be obtained as expectation is that [employer] will take at least 24 hours or more to provide authorization. Orozco catheter to be removed. 02/03: Medication reconciliation completed. Patient is ambulating well with PT. He has been able to void since orozco removed. Patient will be discharged to [facility] today in stable condition. All arrangements were completed to discharge patient to [facility] but we are waiting for insurance authorization. Patient denies any new complaints. Breathing status is stable. Patient will be discharged once insurance authorization is completed. 02/04: Insurance authorization for subacute rehab was obtained this morning but patient was found to be in atrial fibrillation with RVR and he was started on amiodarone drip. Patient was previously on oral amiodarone. He has been seen by Dr. Sneed with plan to cardiovert on Wednesday if he remains in atrial fibrillation. Patient's pulse oxing 96% on room air and tolerating well. 02/07: Patient remains in Afib mostly running 90s but up to 120 w activity or anxiety. Cardiology has increased metoprolol. Patient does not wish to undergo cardioversion and wants to be discharged. Patient will be discharged to [facility] in stable condition. Pulse ox 96% on room air. Discharge diagnoses: 1 Acute systolic heart failure. #2 hypotention likely secondary to dehydration and atrial flutter #3 New atrial flutter s/p cardioversion #4 hypertension 6. 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 Follows with Dr. Kennedy. #10 GI prophylaxis #11 DVT prophylaxis #12 code status full code 13. Acute delirium. #14 impaired balance, physical therapy and occupational therapies to see the patient #15 large pericardial effusion, moderate, no plans for surgical intervention #16 mild protein calorie malnutrition #17 acute transaminitis most likely secondary to right-sided heart failure #18 acute kidney injury and CKD stage II most likely secondary to postobstructive issues, along with ATN with hypotension #19 pyuria with BPH and lower urinary tract symptomatology, causing delirium #20 COPD exacerbation #21 abdominal ascites noted on CAT scan, most likely secondary to hypoalbuminemia #22 Coronary artery calcifications,/CAD, Discharge plan: [facility] under the care of Dr. Henry Impression and plan of care have been directed as dictated by the signing physician. Etelvina Gallegos nurse practitioner acting as scribe for signing physician. Patient Condition at Discharge: Good Plan - Discharge Summary Discharge Rx Participant: Yes New Discharge Prescriptions: New ALPRAZolam [Xanax] 0.25 mg PO BID PRN #60 tab PRN Reason: Anxiety Amiodarone [Cordarone] 200 mg PO DAILY tab Apixaban [Eliquis] 5 mg PO BID #0 tab Budesonide [Pulmicort] 0.5 mg INHALATION RT-BID nebu Famotidine [Pepcid] 20 mg PO BID tab Furosemide [Lasix] 40 mg PO BID@0900,1600 tab guaiFENesin [Mucinex] 600 mg PO Q12HR tablet.er Ipratropium-Albuterol Nebulize [Duoneb 0.5 mg-3 mg/3 ml Soln] 3 ml INHALATION RT-QID ampul.neb Ipratropium-Albuterol Nebulize [Duoneb 0.5 mg-3 mg/3 ml Soln] 3 ml INHALATION RT-Q2H PRN ampul.neb PRN Reason: Shortness Of Breath Or Wheezing Losartan [Cozaar] 12.5 mg PO DAILY tab Midodrine [ProAmatine] 10 mg PO AC-TID tab Nicotine 21Mg/24Hr Patch [Habitrol] 1 patch TRANSDERM DAILY patch predniSONE 0 mg PO DIRECTED #30 tab Spironolactone [Aldactone] 25 mg PO DAILY tab Metoprolol Tartrate [Lopressor] 25 mg PO BID tab Continue Finasteride [Proscar] 5 mg PO DAILY Aspirin 81 mg PO HS Montelukast Sodium [Singulair] 10 mg PO HS Tamsulosin [Flomax] 0.4 mg PO DAILY Atorvastatin Calcium [Lipitor] 40 mg PO HS traMADol HCl [Ultram] 50 mg PO Q6H PRN #120 tab PRN Reason: Pain Changed tiZANidine HCL 2 mg PO BID PRN #0 PRN Reason: muscle spasms Discontinued [place] 160 mg PO HS Albuterol Nebulized [Ventolin Nebulized] 2.5 mg INHALATION Q6H PRN PRN Reason: Shortness Of Breath Discharge Medication List Finasteride [Proscar] 5 mg PO DAILY 04/09/17 [History] Aspirin 81 mg PO HS 01/25/18 [History] Atorvastatin Calcium [Lipitor] 40 mg PO HS 01/25/18 [History] Montelukast Sodium [Singulair] 10 mg PO HS 01/25/18 [History] Tamsulosin [Flomax] 0.4 mg PO DAILY 01/25/18 [History] ALPRAZolam [Xanax] 0.25 mg PO BID PRN #60 tab 02/03/18 [Rx] Amiodarone [Cordarone] 200 mg PO DAILY tab 02/03/18 [Rx] Apixaban [Eliquis] 5 mg PO BID #0 tab 02/03/18 [Rx] Budesonide [Pulmicort] 0.5 mg INHALATION RT-BID nebu 02/03/18 [Rx] Famotidine [Pepcid] 20 mg PO BID tab 02/03/18 [Rx] Furosemide [Lasix] 40 mg PO BID@0900,1600 tab 02/03/18 [Rx] Ipratropium-Albuterol Nebulize [Duoneb 0.5 mg-3 mg/3 ml Soln] 3 ml INHALATION RT -Q2H PRN ampul.neb 02/03/18 [Rx] Ipratropium-Albuterol Nebulize [Duoneb 0.5 mg-3 mg/3 ml Soln] 3 ml INHALATION RT -QID ampul.neb 02/03/18 [Rx] Losartan [Cozaar] 12.5 mg PO DAILY tab 02/03/18 [Rx] Midodrine [ProAmatine] 10 mg PO AC-TID tab 02/03/18 [Rx] Nicotine 21Mg/24Hr Patch [Habitrol] 1 patch TRANSDERM DAILY patch 02/03/18 [Rx] Spironolactone [Aldactone] 25 mg PO DAILY tab 02/03/18 [Rx] guaiFENesin [Mucinex] 600 mg PO Q12HR tablet.er 02/03/18 [Rx] predniSONE 0 mg PO DIRECTED #30 tab 02/03/18 [Rx] tiZANidine HCL 2 mg PO BID PRN #0 02/03/18 [Rx] traMADol HCl [Ultram] 50 mg PO Q6H PRN #120 tab 02/03/18 [Rx] Metoprolol Tartrate [Lopressor] 25 mg PO BID tab 02/07/18 [Rx] Follow up Appointment(s)/Referral(s): [facility] [Provider Group] - 1 Week Pedro Sneed MD [STAFF PHYSICIAN] - 3 Weeks Alexei Metz MD [Primary Care Provider] - 1 Week (after dc from ECF) Tom Rogers MD [STAFF PHYSICIAN] - 3 Days Patient Instructions/Handouts: Heart Failure (DC), A-fib (Atrial Fibrillation) (DC), Pleural Effusion (DC), Cardioversion (DC) Activity/Diet/Wound Care/Special Instructions: Diet: cardiac O2 2-3 L n/c Activity as tolerated Discharge Disposition: TRANSFER TO SNF/ECF
--- NOTE | 2018-02-07 09:58 | P.PN ---
Subjective Progress Note Date: 02/07/18 HPI: is a 73-year-old male who presented to [facility] on 2017 at that time he had been complaining of shortness of breath and had been getting worse over the next couple of weeks prior to coming in. He does have history of COPD and has been taking his nebulizer treatments and albuterol. Today he is quite confused and shortness breath as well. He denies any chest pain at this time. 01/31/18- patient has been seen and examined and evaluated on rounds. He is resting up in bed on 3 L of supplemental oxygen via nasal cannula. He has been up walking in the room. He was evaluated for possible inpatient rehab and is not a candidate at this time. He does not use any home oxygen. He has been using his incentive spirometer and pulling volumes of approximately 1000 ML's. Does have a congested cough that has been nonproductive. Patient did undergo a ultrasound of the chest this morning which did show bilateral pleural effusions right measuring 7.2 cm left measuring 7.3 cm. 02/01/18- please see Dr. Jono Jauregui note 02/02/18- patient is being seen examined and evaluated today on rounds. Patient sitting up in bed on 2 L of supplemental oxygen via nasal cannula. Chest x-ray from this morning does reveal small bilateral pleural effusions. He does have some shortness of breath with exertion however it is improving. He denies any cough or congestion at this time. Steroid to place continues to be tapered. 02/03/18- patient is being seen examined and evaluated on rounds. He is sitting up in bed on 2 L of supplemental oxygen via nasal cannula. Patient feels his breathing is improved to his family is at bedside and updated on plan of care. Discharge planning to rehab facility is currently in process. He is afebrile no further complaints all labs and reports have been reviewed. 02/04/18- patient is being seen examined and evaluated today on rounds. The patient was supposed to call to rehab today however overnight the patient did convert back into atrial fibrillation. He was started on IV amiodarone and will be transitioned back to oral amiodarone per cardiology. If the patient remains in atrial fibrillation over the weekend and does not convert he is planned to go for cardioversion on [place]. Patient's breathing has been relatively stable throughout this process. He continues on 2 L of oxygen via nasal cannula. Significant other is at bedside and has been updated on plan of care. At this time for my understanding discharge is on hold. 02/05/2018: Patient seen and examined. Patient is currently on room air. Patient states that he feels like he has a lot of congestion. He states that his breathing is just so-so today. The patient states she is frustrated because he was supposed to go to rehab. 02/06/2018: Patient seen and examined. Patient is currently on room air. Patient states that he is feeling much better today. He states he wants to go home soon. His cough is improving. He denies fevers and chills. 02/07/18- patient being seen examined and evaluated today on rounds. He is resting up in bed on room air. He was possibly going to go for cardioversion procedure with cardiology this morning however he has refused. He continues to be atrial fibrillation with rates 90-120. Discharge planning is taking placed back to an ECF at this time. He is afebrile no further complaints. Objective - Vital Signs Vital signs: Vital Signs Temp 98.6 F 02/07/18 08:00 Pulse 127 H 02/07/18 08:00 Resp 18 02/07/18 08:00 BP 106/75 02/07/18 08:00 Pulse Ox 96 02/07/18 08:00 Intake & Output 02/06/18 02/07/18 02/07/18 18:59 06:59 18:59 Intake Total 960 Output Total 200 750 Balance 760 -750 Weight 79.9 kg Intake: Oral 960 Output: Urine 200 750 Other: Voiding Method Bedside Commode Diaper - Exam GENERAL EXAM: Alert, comfortable in no apparent distress. HEAD: Normocephalic. EYES: Normal reaction of pupils, equal size. NOSE: Clear with pink turbinates. THROAT: No erythema or exudates. NECK: No masses, no JVD. CHEST: No chest wall deformity. LUNGS: Lungs noted to have decreased air entry throughout. Bases diminished CVS: S1 and S2 normal with no audible mumurs, irregular rhythm. ABDOMEN: No hepatosplenomegaly, normal bowel sounds, no guarding or rigidity. EXTREMITIES: No edema noted, pedal pulses palpable. CENTRAL NERVOUS SYSTEM: No focal deficits, tone is normal in all 4 extremities. - Labs CBC & Chem 7: 02/05/18 05:41 02/04/18 11:30 Assessment and Plan Assessment: Assessment COPD with acute exacerbation Bilateral pleural effusions Chronic moderate pericardial effusion Congestive heart failure systolic with acute overload CAD UTI Metabolic encephalopathy Abdominal ascites Medical debility Plan Patient is cleared for discharge from pulmonary standpoint to ECF. Amiodarone per cardiology. Patient has refused cardioversion at this time.. Medications have been reviewed and will be continued as ordered. Steroid taper. Continue with diuresis. Ultrasound of bilateral lungs has been reviewed. CT of chest reviewed. Nephrology consultation patient is diuresing well. Chest x-ray is reviewed. Continue with pulmonary hygiene, coughing and deep breathing exercises, and supportive care. Supplemental oxygen to maintain oxygen saturations of 92% or better. Continue nebulizer treatments. GI and DVT prophylaxis. PT/OT. We will continue to monitor labs/results and adjust treatment as necessary. Further recommendations pending. I performed an examination of the patient and discussed their management with the nurse practitioner. I have reviewed the nurse practitioner's note and agree with the documented findings and plan of care.
[2018-02-07] MEDS: ALPRAZolam 0.25 MG TAB PO PRN ×2 (11:00→22:51)
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
[2018-02-07] MEDS: ATORVASTATIN 40 MG TAB PO SCH (22:37)
[2018-02-07] MEDS: METOPROLOL TARTRATE 25 MG TAB PO SCH (22:37)
[2018-02-07] MEDS: MONTELUKAST 10 MG TAB PO SCH (22:37)
[2018-02-08] MEDS: MIDODRINE 5 MG TAB PO SCH ×3 (06:19→17:28)
[2018-02-08] MEDS: NICOTINE 21MG/24HR PATCH TRANSDERM SCH (08:05)
[2018-02-08] MEDS: APIXABAN 5 MG TAB PO SCH ×2 (08:06→21:54)
[2018-02-08] MEDS: cefTRIAXone IN SWFI 1,000 MG/10 ML SYRINGE IVP SCH (08:06)
[2018-02-08] MEDS: FAMOTIDINE 20 MG TAB PO SCH ×2 (08:06→21:55)
[2018-02-08] MEDS: AMIODARONE 200 MG TAB PO SCH (08:06)
[2018-02-08] MEDS: FINASTERIDE 5 MG TAB PO SCH (08:07)
[2018-02-08] MEDS: FUROSEMIDE 40 MG TAB PO SCH (08:07)
[2018-02-08] MEDS: guaiFENesin 600 MG TABLET.ER PO SCH ×2 (08:07→21:55)
[2018-02-08] MEDS: METOPROLOL TARTRATE 25 MG TAB PO SCH ×2 (08:08→23:30)
[2018-02-08] MEDS: LOSARTAN 25 MG TAB PO SCH (08:08)
[2018-02-08] MEDS: TAMSULOSIN 0.4 MG CAP.ER.24H PO SCH (08:09)
[2018-02-08] MEDS: predniSONE 10 MG TAB PO SCH (08:09)
[2018-02-08] MEDS: SPIRONOLACTONE 25 MG TAB PO SCH (08:09)
[2018-02-08] MEDS: traMADol 50 MG TAB PO PRN (08:09)
[2018-02-08] MEDS: IPRATROPIUM-ALBUTEROL 3 ML NEB INHALATION SCH ×4 (09:33→20:37)
[2018-02-08] MEDS: BUDESONIDE 0.5 MG/2 ML NEBU INHALATION SCH ×2 (09:34→20:37)
--- NOTE | 2018-02-08 09:50 | P.PN ---
Subjective Progress Note Date: 02/08/18 HPI: is a 73-year-old male who presented to [facility] on 2017 at that time he had been complaining of shortness of breath and had been getting worse over the next couple of weeks prior to coming in. He does have history of COPD and has been taking his nebulizer treatments and albuterol. Today he is quite confused and shortness breath as well. He denies any chest pain at this time. 01/31/18- patient has been seen and examined and evaluated on rounds. He is resting up in bed on 3 L of supplemental oxygen via nasal cannula. He has been up walking in the room. He was evaluated for possible inpatient rehab and is not a candidate at this time. He does not use any home oxygen. He has been using his incentive spirometer and pulling volumes of approximately 1000 ML's. Does have a congested cough that has been nonproductive. Patient did undergo a ultrasound of the chest this morning which did show bilateral pleural effusions right measuring 7.2 cm left measuring 7.3 cm. 02/01/18- please see Dr. Jono Jauregui note 02/02/18- patient is being seen examined and evaluated today on rounds. Patient sitting up in bed on 2 L of supplemental oxygen via nasal cannula. Chest x-ray from this morning does reveal small bilateral pleural effusions. He does have some shortness of breath with exertion however it is improving. He denies any cough or congestion at this time. Steroid to place continues to be tapered. 02/03/18- patient is being seen examined and evaluated on rounds. He is sitting up in bed on 2 L of supplemental oxygen via nasal cannula. Patient feels his breathing is improved to his family is at bedside and updated on plan of care. Discharge planning to rehab facility is currently in process. He is afebrile no further complaints all labs and reports have been reviewed. 02/04/18- patient is being seen examined and evaluated today on rounds. The patient was supposed to call to rehab today however overnight the patient did convert back into atrial fibrillation. He was started on IV amiodarone and will be transitioned back to oral amiodarone per cardiology. If the patient remains in atrial fibrillation over the weekend and does not convert he is planned to go for cardioversion on [place]. Patient's breathing has been relatively stable throughout this process. He continues on 2 L of oxygen via nasal cannula. Significant other is at bedside and has been updated on plan of care. At this time for my understanding discharge is on hold. 02/05/2018: Patient seen and examined. Patient is currently on room air. Patient states that he feels like he has a lot of congestion. He states that his breathing is just so-so today. The patient states she is frustrated because he was supposed to go to rehab. 02/06/2018: Patient seen and examined. Patient is currently on room air. Patient states that he is feeling much better today. He states he wants to go home soon. His cough is improving. He denies fevers and chills. 02/07/18- patient being seen examined and evaluated today on rounds. He is resting up in bed on room air. He was possibly going to go for cardioversion procedure with cardiology this morning however he has refused. He continues to be atrial fibrillation with rates 90-120. Discharge planning is taking placed back to an [facility] at this time. He is afebrile no further complaints. 02/08/18- patient is being seen examined and evaluated today on rounds. Patient is being prepared for discharge yesterday however did have an episode where he tried to slit his wrist with a butter knife. Patient was put on suicide precautions psych did see the patient and recommended that guardianship take over the patient's medical care due to the patient current status. He continues on one-to-one suicide precautions. Upon examination today he is resting up in bed on room air. Her shortness of breath with exertion. Chronic congestive cough. Patient previously was refusing cardioversion. Now with guardianship the patient may possibly undergo the procedure, unsure of the status at this time. Objective - Vital Signs Vital signs: Vital Signs Temp 96.8 F L 02/08/18 08:00 Pulse 104 H 02/08/18 09:34 Resp 18 02/08/18 08:00 BP 122/58 02/08/18 08:00 Pulse Ox 95 02/08/18 08:00 Intake & Output 02/07/18 02/08/18 02/08/18 18:59 06:59 18:59 Intake Total 480 240 Output Total 800 150 Balance -320 -150 240 Weight 78.5 kg Intake: Oral 480 240 Output: Urine 800 150 Other: Voiding Method Bedside Commode Diaper # Voids 1 - Exam GENERAL EXAM: Alert, comfortable in no apparent distress. HEAD: Normocephalic. EYES: Normal reaction of pupils, equal size. NOSE: Clear with pink turbinates. THROAT: No erythema or exudates. NECK: No masses, no JVD. CHEST: No chest wall deformity. LUNGS: Lungs noted to have decreased air entry throughout. Bases diminished CVS: S1 and S2 normal with no audible mumurs, irregular rhythm. ABDOMEN: No hepatosplenomegaly, normal bowel sounds, no guarding or rigidity. EXTREMITIES: No edema noted, pedal pulses palpable. CENTRAL NERVOUS SYSTEM: No focal deficits, tone is normal in all 4 extremities. - Labs CBC & Chem 7: 02/05/18 05:41 02/04/18 11:30 Assessment and Plan Assessment: Assessment COPD with acute exacerbation Bilateral pleural effusions Chronic moderate pericardial effusion Congestive heart failure systolic with acute overload CAD UTI Metabolic encephalopathy Abdominal ascites Medical debility Plan Guardianship currently being obtained., 1-1 suicide precautions. Medications have been reviewed and will be continued as ordered. Steroid taper. Continue with diuresis. Ultrasound of bilateral lungs has been reviewed. CT of chest reviewed. Nephrology consultation patient is diuresing well. Chest x-ray is reviewed. Continue with pulmonary hygiene, coughing and deep breathing exercises, and supportive care. Supplemental oxygen to maintain oxygen saturations of 92% or better. Continue nebulizer treatments. GI and DVT prophylaxis. PT/OT. We will continue to monitor labs/results and adjust treatment as necessary. Further recommendations pending. I performed an examination of the patient and discussed their management with the nurse practitioner. I have reviewed the nurse practitioner's note and agree with the documented findings and plan of care.
--- NOTE | 2018-02-08 11:43 | P.PN ---
Subjective Progress Note Date: 02/07/18 Principal diagnosis: CHF This is a 73-year-old gentleman with history of hypertension, recent stroke, COPD, nicotine dependence, who presented to the hospital with symptoms of shortness of breath. He was seen in consultation by Dr. Sneed on arrival here, found to be in atrial flutter, patient underwent cardioversion. He was seen and examined this morning continues to be in normal sinus rhythm. He does state overall that his breathing is significantly improved. Blood pressure 90/ 50 with a heart rate in the 70s, 91% on 2 L of oxygen. White blood cell count 13.2, hemoglobin 13.3, sodium 134, potassium 4.2, BUN 20, creatinine 0.8. 02/04/2018 Patient was seen and examined this morning, went back into atrial fibrillation with rapid ventricular response through the night last night and was initiated on IV amiodarone. His by mouth amiodarone is currently on hold. He continues to be in atrial fibrillation this morning. If the patient remains in atrial fibrillation on by Wednesday, Dr. Sneed will consider repeating the cardioversion. Blood pressure 102/60, heart rate low 100s this morning, 96% on 2 L of oxygen. 02/05/2018 Patient was seen and examined this morning, continues to be in atrial fibrillation on IV amiodarone. Once the IV amiodarone is infused, patient will be initiated on oral and me on. If the patient continues to be in atrial fibrillation, Dr. Sneed may repeat a cardioversion on Wednesday, we will keep him nothing by mouth at midnight on Wednesday and further evaluate. Overall the patient feels well, no complaints. 02/07/2018 Patient was seen and examined this morning, quite agitated and angry. Refusing to have her diversion performed. This was also discussed with his significant other. The decision was made to cancel a cardioversion and continue with current medical therapy. Subsequent to this patient did try to cut his wrist with a butter knife and psych consult was requested. Objective - Vital Signs Vital signs: Vital Signs Temp 96.8 F L 02/08/18 08:00 Pulse 104 H 02/08/18 09:45 Resp 18 02/08/18 08:00 BP 122/58 02/08/18 08:00 Pulse Ox 95 02/08/18 08:00 Intake & Output 02/07/18 02/08/18 02/08/18 18:59 06:59 18:59 Intake Total 480 240 Output Total 800 150 Balance -320 -150 240 Weight 78.5 kg Intake: Oral 480 240 Output: Urine 800 150 Other: Voiding Method Bedside Commode Diaper # Voids 1 - Exam PHYSICAL EXAMINATION: HEENT: Head is atraumatic, normocephalic. Pupils equal, round. Neck is supple. There is no elevated jugular venous pressure. HEART EXAMINATION: Heart S1, S2 irregularly irregular . No murmur or gallop heard. CHEST EXAMINATION: Lungs reveal crackles to bilateral bases, with diminished air entry to the bases. ABDOMEN: Soft, nontender. Bowel sounds are heard. No organomegaly noted. EXTREMITIES: 2+ peripheral pulses with no evidence of peripheral edema and no calf tenderness noted. NEUROLOGIC patient is awake, alert and oriented -3. Extremely frustrated and agitated . - Labs CBC & Chem 7: 02/05/18 05:41 02/04/18 11:30 Assessment and Plan Plan: Assessment and plan #1 systolic congestive heart failure acute on chronic, prior echo was normal, there is reduction in ejection fraction on this admission with an EF of less than 20. #2 paroxysmal atrial flutter, typical, status post cardioversion to normal sinus rhythm #3 hypertension #4 TIA # 5 pericardial effusion #6 acute renal insufficiency, stage II #7 COPD exacerbation Plan Emergency has been canceled, we will continue current medical therapy, increase dose of beta nubia for optimal heart rate control. A psych consult has also been requested.
--- NOTE | 2018-02-08 11:45 | P.PN ---
Subjective Progress Note Date: 02/08/18 Principal diagnosis: CHF This is a 73-year-old gentleman with history of hypertension, recent stroke, COPD, nicotine dependence, who presented to the hospital with symptoms of shortness of breath. He was seen in consultation by Dr. Sneed on arrival here, found to be in atrial flutter, patient underwent cardioversion. He was seen and examined this morning continues to be in normal sinus rhythm. He does state overall that his breathing is significantly improved. Blood pressure 90/ 50 with a heart rate in the 70s, 91% on 2 L of oxygen. White blood cell count 13.2, hemoglobin 13.3, sodium 134, potassium 4.2, BUN 20, creatinine 0.8. 02/04/2018 Patient was seen and examined this morning, went back into atrial fibrillation with rapid ventricular response through the night last night and was initiated on IV amiodarone. His by mouth amiodarone is currently on hold. He continues to be in atrial fibrillation this morning. If the patient remains in atrial fibrillation on by Wednesday, Dr. Sneed will consider repeating the cardioversion. Blood pressure 102/60, heart rate low 100s this morning, 96% on 2 L of oxygen. 02/05/2018 Patient was seen and examined this morning, continues to be in atrial fibrillation on IV amiodarone. Once the IV amiodarone is infused, patient will be initiated on oral and me on. If the patient continues to be in atrial fibrillation, Dr. Sneed may repeat a cardioversion on Wednesday, we will keep him nothing by mouth at midnight on Wednesday and further evaluate. Overall the patient feels well, no complaints. 02/07/2018 Patient was seen and examined this morning, quite agitated and angry. Refusing to have her diversion performed. This was also discussed with his significant other. The decision was made to cancel a cardioversion and continue with current medical therapy. Subsequent to this patient did try to cut his wrist with a butter knife and psych consult was requested. 02/08/2018 Patient was seen and examined this morning, sitter at bedside. He was seen and evaluated by psych who recommended he go to an inpatient psych facility. He continues to be in atrial fibrillation, rate is under adequate control today. Blood pressure 122/60 with a heart rate of 90. Objective - Vital Signs Vital signs: Vital Signs Temp 96.8 F L 02/08/18 08:00 Pulse 104 H 02/08/18 09:45 Resp 18 02/08/18 08:00 BP 122/58 02/08/18 08:00 Pulse Ox 95 02/08/18 08:00 Intake & Output 02/07/18 02/08/18 02/08/18 18:59 06:59 18:59 Intake Total 480 240 Output Total 800 150 Balance -320 -150 240 Weight 78.5 kg Intake: Oral 480 240 Output: Urine 800 150 Other: Voiding Method Bedside Commode Diaper # Voids 1 - Exam PHYSICAL EXAMINATION: HEENT: Head is atraumatic, normocephalic. Pupils equal, round. Neck is supple. There is no elevated jugular venous pressure. HEART EXAMINATION: Heart S1, S2 irregularly irregular . No murmur or gallop heard. CHEST EXAMINATION: Lungs reveal crackles to bilateral bases, with diminished air entry to the bases. ABDOMEN: Soft, nontender. Bowel sounds are heard. No organomegaly noted. EXTREMITIES: 2+ peripheral pulses with no evidence of peripheral edema and no calf tenderness noted. NEUROLOGIC patient is awake, alert and oriented -3. Sitter at bedside. . - Labs CBC & Chem 7: 02/05/18 05:41 02/04/18 11:30 Assessment and Plan Plan: Assessment and plan #1 systolic congestive heart failure acute on chronic, prior echo was normal, there is reduction in ejection fraction on this admission with an EF of less than 20. #2 paroxysmal atrial flutter, typical, status post cardioversion to normal sinus rhythm #3 hypertension #4 TIA # 5 pericardial effusion #6 acute renal insufficiency, stage II #7 COPD exacerbation Plan Cardioversion was canceled yesterday, we'll continue the patient on current medications. Arrangements are being made for him to go to an inpatient psychiatric unit. He may be able to be transferred to the psych unit from [facility] or [facility] while awaiting a bed. We'll follow him along with you on an as- needed basis only please don't hesitate to call with any questions. A follow- up appointment will be made in the office post discharge. DNP note has been reviewed, I agree with a documented findings and plan of care. Patient was seen and examined.
[2018-02-08] MEDS: SENNOSIDES-DOCUSATE SODIUM 1 EACH TAB PO SCH ×2 (13:05→21:55)
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
--- NOTE | 2018-02-08 13:42 | P.PN ---
Subjective Progress Note Date: 02/08/18 this is a 72 years old male with past medical history of hypertension , recent stroke 3 months ago patient of Dr. Metz care of guardian Etelvina last admitted in September for acute gastroenteritis comes in with shortness of breath that has been getting worse for the past few weeks. He denies any nausea or vomiting, lightheadedness or dizziness, no chest pain. chest x-ray done in the ER suggestive of mild CHF, labs were positive for a BNP of 6140 with normal troponin. Initial white is obtainable floor suggestive of a heart rate of 145, blood pressure 94/67 saturated room air 91%. Patient was seen by cardiology who suggested patient has atrial flutter. Will be taken for cardioversion tomorrow. Initiated on Celebrex Patient was initiated on Lasix 80 mg twice a day after a dose of Lasix. 01/27 Patient was noted to have some confusion last night, head CT ordered shows chronic white matter ischemic changes, old watershed infarct, and no acute intracranial changes. Today confusion has improved. Hypotension has improved, blood pressure 105/84 patient underwent TAMIR and cardioversion today. He had successful electrical cardioversion to sinus rhythm, patient noted to have severe cardiomyopathy on TAMIR. TAMIR shows left ventricular cavity is dilated with severe impaired left ventricular systolic function, moderate degree of mitral regurgitation, mild degree of tricuspid regurgitation. Echocardiogram reveals ejection fraction less than 20%, moderate left ventricular hypertrophy, LA is severely dialted, and moderate pericaridal effusion. 01/28 blood pressure on the lower side today. Patient is more confused than yesterday likely secondary to delirium. He does answer questions appropriately once disoriented. Pending for today. Neurology consulted. Patient has significant occlusion of the right common carotid artery external carotid artery and internal carotid artery with retrograde flow in the right vertebral artery representing subclavian steal syndrome. He has seen vascular surgery in the past who has recommended conservative management for the above. Metoprolol dose reduced to 12.5 mg twice daily. Amiodarone initiated at 200 mg daily Lasix held as patient has low blood pressure. Pericardial effusion documented on echocardiogram appears to be chronic secondary to viral infection. 01/29: Patient was seen at bedside he seems to be more confused today, appetite seems to be decreased, sitter at bedside, patient feels weak, unsteady on standing, balance impaired. Physical therapy requested, urine culture and sensitivity requested secondary to delirium, underlying dementia cannot be ruled out, no other neurologic focal deficits noted. Patient does not have any nausea no vomiting, no fever. Vascular has evaluated him, chronic right complete occlusion carotid stenosis no surgery required him and discussed with Dr. Kennedy. Orozco catheter has been placed secondary to urinary retention, postvoid residual over at least 300 mL, Orozco catheter in place patient on Flomax 01/30: Patient was a bit more dyspneic last night, patient required Lasix IV 40 mg last night, with additional 60 mg this morning, nebulized treatments this morning, patient has some bronchospasms, consult to Dr. Nathaly Rogers, CAT scan of the chest was requested, patient was placed on Rocephin for suspected urinary tract infection, cultures are currently pending, patient has increasing O2 requirements from 3 L this can lead to 5 L next cannula overnight, secondary to hypoxemia blood pressure remained stable at 121 systolic however he has low blood pressure around 84 systolic yesterday evening. Solu-Medrol 60 mg started for bronchospasms. 01/31 Patient was seen and evaluated today. He was noted to have large bilateral pleural effusions with multifocal subsegmental atelectasis, extensive bullous emphysematous changes, enlargement of the main pulmonary artery, extensive coronary artery calcifications, small abdominal ascities, right renal atrophy and nodularity of the left adrenal gland, and a small hiatal hernia on his CT scan. Will obtain an ultrasound of the thorax. Patient noted to be hypotensive , last reading 86/51, will treat with Midodrine 10mg TID. Physcial therapy evaluated patient today, he does not require physical assistance, thus does not meet criteria for inpatient rehab. 02/01: Patient was evaluated today, he was noted to be resting in bed with family at bedside. Patient was encouraged to ambulate. Will discontinue Orozco catheter tomorrow. Ultrasound of the thorax revealed moderate bilateral pleural effusions, pulmonology's consult appreciated. Recommends to continue with diuresis, if no response, then possible thoracentesis. Encouraged to use incentive spirometer at the bedside. We'll repeat a chest x-ray tomorrow. 02/02: Patient is seen and followed by Dr. Marin with recommendations to continue Lasix which is 40 mg twice daily. We will change Solu-Medrol over to oral prednisone. Repeat chest x-ray shows small bilateral pleural effusions with minimal bibasilar infiltrates likely compressive atelectasis. Patient is requesting discharge to [facility] for subacute rehab. We have asked for authorization to be obtained as expectation is that [employer] will take at least 24 hours or more to provide authorization. Orozco catheter to be removed. 02/03: Medication reconciliation completed. Patient is ambulating well with PT. He has been able to void since orozco removed. Patient will be discharged to [facility] today in stable condition. All arrangements were completed to discharge patient to [facility] but we are waiting for insurance authorization. Patient denies any new complaints. Breathing status is stable. Patient will be discharged once insurance authorization is completed. 02/04: Insurance authorization for subacute rehab was obtained this morning but patient was found to be in atrial fibrillation with RVR and he was started on amiodarone drip. Patient was previously on oral amiodarone. He has been seen by Dr. Sneed with plan to cardiovert on Wednesday if he remains in atrial fibrillation. Patient's pulse oxing 96% on room air and tolerating well. 02/07: Patient remains in Afib mostly running 90s but up to 120 w activity or anxiety. Cardiology has increased metoprolol. Patient does not wish to undergo cardioversion and wants to be discharged. Patient will be discharged to [facility] in stable condition. Pulse ox 96% on room. 02/08: After patient was prepared for discharge to [facility], patient cut his right wrist with a butter knife. There is a superficial laceration but not needing stitches. Patient apparently passed on that he wanted to . Go through that procedure. Consult was placed with psychiatry and they have recommended the patient have a guardian and also inpatient psychiatric treatment and social work is working on this plan. Also sitter was ordered for bedside. Today, patient denies any concerns. He denies having any chest pain or shortness of breath. His heart rate is running in the low 100s. Pulse ox is 94% on room air. Patient will be [facility] floor. Cardiology does not plan for any further intervention. Objective - Vital Signs Vital signs: Vital Signs Temp 96.8 F L 02/08/18 08:00 Pulse 104 H 02/08/18 09:45 Resp 18 02/08/18 08:00 BP 122/58 02/08/18 08:00 Pulse Ox 95 02/08/18 08:00 Intake & Output 02/07/18 02/08/18 02/08/18 18:59 06:59 18:59 Intake Total 480 240 Output Total 800 150 Balance -320 -150 240 Weight 78.5 kg Intake: Oral 480 240 Output: Urine 800 150 Other: Voiding Method Bedside Commode Diaper # Voids 1 - Exam - Constitutional General appearance: cooperative, no acute distress, obese - EENT Eyes: anicteric sclerae, PERRLA, normal appearance ENT: hearing grossly normal - Neck Neck: no lymphadenopathy, normal ROM, no other, no rigidity, no stridor, no thyromegaly - Respiratory Respiratory: bilateral: CTA with bibasilar crackles present on examination, negative: diminished, dullnes - Cardiovascular Rhythm: regular Heart sounds: normal: S1, S2 Abnormal Heart Sounds: no systolic murmur, no diastolic murmur, no rub, no S3 Gallop, no S4 Gallop, no click, no other - Gastrointestinal General gastrointestinal: normal bowel sounds, soft - Integumentary Integumentary: no rash - Neurologic Neurologic: CNII-XII intact - Musculoskeletal Musculoskeletal: strength equal bilaterally - Psychiatric Psychiatric: A&O x's 3, appropriate affect - Labs CBC & Chem 7: 02/05/18 05:41 02/04/18 11:30 Assessment and Plan Plan: 1 Acute systolic heart failure. Previous echo was normal, there is reduction in ejection fraction in this admission with an EF <20%. TAMIR shows severe cardiomyopathy with moderate pericardial effusion which is likely chronic. Receiving Lasix 40 mg by mouth twice a day. Consult with Dr. Tomas street. Cardiology is following. 2 hypotention likely secondary to dehydration and atrial flutter, blood pressure has improved slightly with fluids. Hydrated and stabilized, Lasix has to be restarted secondary to dyspnea and pleural effusion, CHF metoprolol XL 25 mg daily, Midodrine 10mg TID added. Blood pressure stable. 3 New atrial flutter s/p cardioversion with episode of A. fib with RVR- Patient underwent previous cardioversion to sinus rhythm and Dr. Sneed plans to repeat cardioversion on Wednesday if he remains in atrial fibrillation. Continue amiodarone drip, eliquis 5 mg twice a day. 4 hypertension-continue home medications including metoprolol. 6. 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 Follows with Dr. Kennedy. Patient also follow Dr. Jones who recommended conservative management 10 GI prophylaxis Pepcid 20 mg po twice a day 11 DVT prophylaxis on eliquis 12 code status full code 13. Acute delirium. CT head negative for any acute abnormality. EEG does not show any focal, lateralized, or epileptiform abnormalities. urinalysis obtained 01/29, has some pyuria, urine cultures were sent, IV antibiotics Rocephin started 14 impaired balance, physical therapy and occupational therapies to see the patient, skilled therapies expected, patient does not meet criteria for inpatient, will plan for subacute upon discharge 15 large pericardial effusion, moderate, no plans for surgical intervention patient currently is on diuretics cardiology following closely, pulmonary consulted Dr. Guanaco Rogers, u/s of thorax ordered 16 mild protein calorie malnutrition, patient has diminished appetite, nutritional supplementation and requested 17 acute transaminitis most likely secondary to right-sided heart failure, levels are trending downward 18 acute kidney injury and CKD stage II most likely secondary to postobstructive issues, along with ATN with hypotension,, monitor for post void residual after Orozco catheter would be discontinued, continue to monitor chemistries. Consult with Dr. Marin appreciated. 19 pyuria with BPH and lower urinary tract symptomatology, causing delirium, patient will be started on IV Rocephin, cephalosporins oral on discharge 20 COPD exacerbation, Solu-Medrol changed to oral prednisone for the morning and continue nebulized albuterol Atrovent, 21 abdominal ascites noted on CAT scan, most likely secondary to hypoalbuminemia , however other pathologies are not excluded, IV Lasix, continue to monitor 22 Coronary artery calcifications,/CAD, 23. Suicidal ideation and superficial laceration to the right wrist self- inflicted. Psychiatry eval appreciated. Patient have guardianship and inpatient psychiatric services. Social work is following. Discharge plan: Guardian ship and inpatient mental health Impression and plan of care have been directed as dictated by the signing physician. Etelvina Gallegos nurse practitioner acting as scribe for signing physician.
[2018-02-08] MEDS: FUROSEMIDE 20 MG TAB PO SCH (17:31)
[2018-02-08] MEDS: MONTELUKAST 10 MG TAB PO SCH (21:54)
[2018-02-08] MEDS: ATORVASTATIN 40 MG TAB PO SCH (21:55)
[2018-02-08] MEDS: ALPRAZolam 0.25 MG TAB PO PRN (21:57)
[2018-02-09] MEDS: traMADol 50 MG TAB PO PRN ×3 (04:59→16:53)
[2018-02-09] MEDS: IPRATROPIUM-ALBUTEROL 3 ML NEB INHALATION SCH ×4 (07:44→19:51)
[2018-02-09] MEDS: BUDESONIDE 0.5 MG/2 ML NEBU INHALATION SCH ×2 (07:44→19:51)
[2018-02-09] MEDS: APIXABAN 5 MG TAB PO SCH ×2 (09:41→20:27)
[2018-02-09] MEDS: NICOTINE 21MG/24HR PATCH TRANSDERM SCH (09:41)
[2018-02-09] MEDS: predniSONE 20 MG TAB PO SCH (09:41)
[2018-02-09] MEDS: FAMOTIDINE 20 MG TAB PO SCH ×2 (09:41→20:26)
[2018-02-09] MEDS: TAMSULOSIN 0.4 MG CAP.ER.24H PO SCH (09:41)
[2018-02-09] MEDS: AMIODARONE 200 MG TAB PO SCH (09:42)
[2018-02-09] MEDS: FINASTERIDE 5 MG TAB PO SCH (09:42)
[2018-02-09] MEDS: METOPROLOL TARTRATE 25 MG TAB PO SCH ×2 (09:42→20:26)
[2018-02-09] MEDS: guaiFENesin 600 MG TABLET.ER PO SCH ×2 (09:42→20:26)
[2018-02-09] MEDS: SPIRONOLACTONE 25 MG TAB PO SCH (09:42)
[2018-02-09] MEDS: MIDODRINE 5 MG TAB PO SCH ×3 (09:42→16:39)
[2018-02-09] MEDS: SENNOSIDES-DOCUSATE SODIUM 1 EACH TAB PO SCH ×2 (09:43→20:27)
--- NOTE | 2018-02-09 10:22 | P.PN ---
Subjective Progress Note Date: 02/09/18 HPI: is a 73-year-old male who presented to [facility] on 2017 at that time he had been complaining of shortness of breath and had been getting worse over the next couple of weeks prior to coming in. He does have history of COPD and has been taking his nebulizer treatments and albuterol. Today he is quite confused and shortness breath as well. He denies any chest pain at this time. 01/31/18- patient has been seen and examined and evaluated on rounds. He is resting up in bed on 3 L of supplemental oxygen via nasal cannula. He has been up walking in the room. He was evaluated for possible inpatient rehab and is not a candidate at this time. He does not use any home oxygen. He has been using his incentive spirometer and pulling volumes of approximately 1000 ML's. Does have a congested cough that has been nonproductive. Patient did undergo a ultrasound of the chest this morning which did show bilateral pleural effusions right measuring 7.2 cm left measuring 7.3 cm. 02/01/18- please see Dr. Jono Jauregui note 02/02/18- patient is being seen examined and evaluated today on rounds. Patient sitting up in bed on 2 L of supplemental oxygen via nasal cannula. Chest x-ray from this morning does reveal small bilateral pleural effusions. He does have some shortness of breath with exertion however it is improving. He denies any cough or congestion at this time. Steroid to place continues to be tapered. 02/03/18- patient is being seen examined and evaluated on rounds. He is sitting up in bed on 2 L of supplemental oxygen via nasal cannula. Patient feels his breathing is improved to his family is at bedside and updated on plan of care. Discharge planning to rehab facility is currently in process. He is afebrile no further complaints all labs and reports have been reviewed. 02/04/18- patient is being seen examined and evaluated today on rounds. The patient was supposed to call to rehab today however overnight the patient did convert back into atrial fibrillation. He was started on IV amiodarone and will be transitioned back to oral amiodarone per cardiology. If the patient remains in atrial fibrillation over the weekend and does not convert he is planned to go for cardioversion on [place]. Patient's breathing has been relatively stable throughout this process. He continues on 2 L of oxygen via nasal cannula. Significant other is at bedside and has been updated on plan of care. At this time for my understanding discharge is on hold. 02/05/2018: Patient seen and examined. Patient is currently on room air. Patient states that he feels like he has a lot of congestion. He states that his breathing is just so-so today. The patient states she is frustrated because he was supposed to go to rehab. 02/06/2018: Patient seen and examined. Patient is currently on room air. Patient states that he is feeling much better today. He states he wants to go home soon. His cough is improving. He denies fevers and chills. 02/07/18- patient being seen examined and evaluated today on rounds. He is resting up in bed on room air. He was possibly going to go for cardioversion procedure with cardiology this morning however he has refused. He continues to be atrial fibrillation with rates 90-120. Discharge planning is taking placed back to an ECF at this time. He is afebrile no further complaints. 02/08/18- patient is being seen examined and evaluated today on rounds. Patient is being prepared for discharge yesterday however did have an episode where he tried to slit his wrist with a butter knife. Patient was put on suicide precautions psych did see the patient and recommended that guardianship take over the patient's medical care due to the patient current status. He continues on one-to-one suicide precautions. Upon examination today he is resting up in bed on room air. Her shortness of breath with exertion. Chronic congestive cough. Patient previously was refusing cardioversion. Now with guardianship the patient may possibly undergo the procedure, unsure of the status at this time. 02/09/18- patient is being seen examined and evaluated today on rounds. Patient is doing much better today has a good affect. No longer utilizing one-to-one suicide precautions per recommendations from psychiatry. Guardianship still in process of being obtained. Plan is for discharge to ECF in the near future. Currently breathing is stable. Labs are currently pending. Objective - Vital Signs Vital signs: Vital Signs Temp 96.1 F L 02/09/18 07:00 Pulse 101 H 02/09/18 07:55 Resp 16 03/21/18 07:55 BP 84/51 02/09/18 07:00 Pulse Ox 94 L 02/09/18 07:44 Intake & Output 02/08/18 02/09/18 02/09/18 18:59 06:59 18:59 Intake Total 240 500 Output Total 300 Balance -60 500 Intake: Oral 240 500 Output: Urine 300 Other: # Voids 1 1 - Exam GENERAL EXAM: Alert, comfortable in no apparent distress. HEAD: Normocephalic. EYES: Normal reaction of pupils, equal size. NOSE: Clear with pink turbinates. THROAT: No erythema or exudates. NECK: No masses, no JVD. CHEST: No chest wall deformity. LUNGS: Lungs noted to have decreased air entry throughout. Bases diminished CVS: S1 and S2 normal with no audible mumurs, irregular rhythm. ABDOMEN: No hepatosplenomegaly, normal bowel sounds, no guarding or rigidity. EXTREMITIES: No edema noted, pedal pulses palpable. CENTRAL NERVOUS SYSTEM: No focal deficits, tone is normal in all 4 extremities. - Labs CBC & Chem 7: 02/05/18 05:41 02/04/18 11:30 Assessment and Plan Assessment: Assessment COPD with acute exacerbation Bilateral pleural effusions Chronic moderate pericardial effusion Congestive heart failure systolic with acute overload CAD UTI Metabolic encephalopathy Abdominal ascites Medical debility Plan Patient could be cleared for discharge from a pulmonary standpoint to ECF. Guardianship currently being obtained., 1-1 suicide precautions discontinued per psych recommendations. Patient denies any thoughts or feelings of suicide or hurting himself. Medications have been reviewed and will be continued as ordered. Steroid taper. Continue with diuresis. Ultrasound of bilateral lungs has been reviewed. CT of chest reviewed. Nephrology consultation patient is diuresing well. Chest x-ray is reviewed. Continue with pulmonary hygiene, coughing and deep breathing exercises, and supportive care. Supplemental oxygen to maintain oxygen saturations of 92% or better. Continue nebulizer treatments. GI and DVT prophylaxis. PT/OT. We will continue to monitor labs/results and adjust treatment as necessary. Further recommendations pending. I performed an examination of the patient and discussed their management with the nurse practitioner. I have reviewed the nurse practitioner's note and agree with the documented findings and plan of care.
[2018-02-09] MEDS: LOSARTAN 25 MG TAB PO SCH (11:06)
[2018-02-09] MEDS: FUROSEMIDE 20 MG TAB PO SCH ×2 (11:06→16:39)
--- NOTE | 2018-02-09 12:48 | CDI ---
Last Revision, October 2017 Documentation Clarification Form Date: 02/09/18 From: Iona Mantilla RN, CCDS Admit Date: 01/26/2018 11:34:00 AM Patient Name: Nathan Allen Visit Number: [id number] Discharge Date: ATTENTION: The Clinical Documentation Specialists (CDI) and [facility] Coding Staff appreciate your assistance in clarifying documentation. Please respond to the clarification below the line at the bottom and electronically sign. The CDI & [facility] Coding staff will review the response and follow-up if needed. Please note: Queries are made part of the Legal Health Record. If you have any questions, please contact the author of this message via ITS. Dr. Michael Springer/Ani Nash DNP Atrial fibrillation is documented in the 02/04/18 and continue in ongoing progress notes. History/Risk Factors: Typical Atrial Flutter, Systolic CHF, Hypertension, COPD, CVA/TIA, Current every day smoker Clinical Indicators: 02/05/16 EKG showing atrial fibrillation with rapid ventricular response EKG/telemetry: Atrial fibrillation with rvr heart rate 132 Treatment: IV amiodarone lunchroom monitor In your professional opinion, can you please clarify the type of atrial fibrillation, if known? Chronic/Permanent Paroxysmal Persistent Other, please specify Unable to determine Please continue to document in your progress notes and discharge summary in order to capture severity of illness and risk of mortality. Include clinical findings that support your diagnosis. MTDD
[2018-02-09] MEDS: ATORVASTATIN 40 MG TAB PO SCH (20:26)
[2018-02-09] MEDS: MONTELUKAST 10 MG TAB PO SCH (20:27)
[2018-02-10] MEDS: traMADol 50 MG TAB PO PRN ×2 (01:23→09:52)
[2018-02-10] MEDS: BUDESONIDE 0.5 MG/2 ML NEBU INHALATION SCH ×2 (07:39→19:12)
[2018-02-10] MEDS: IPRATROPIUM-ALBUTEROL 3 ML NEB INHALATION SCH ×4 (07:39→19:12)
[2018-02-10] MEDS: MIDODRINE 5 MG TAB PO SCH ×3 (09:42→17:25)
[2018-02-10] MEDS: NICOTINE 21MG/24HR PATCH TRANSDERM SCH (09:42)
[2018-02-10] MEDS: guaiFENesin 600 MG TABLET.ER PO SCH ×2 (09:42→20:02)
[2018-02-10] MEDS: SPIRONOLACTONE 25 MG TAB PO SCH (09:42)
[2018-02-10] MEDS: LOSARTAN 25 MG TAB PO SCH (09:43)
[2018-02-10] MEDS: FUROSEMIDE 20 MG TAB PO SCH ×2 (09:43→15:37)
[2018-02-10] MEDS: METOPROLOL TARTRATE 25 MG TAB PO SCH ×2 (09:43→20:02)
[2018-02-10] MEDS: predniSONE 20 MG TAB PO SCH (09:43)
[2018-02-10] MEDS: APIXABAN 5 MG TAB PO SCH ×2 (09:43→20:01)
[2018-02-10] MEDS: FINASTERIDE 5 MG TAB PO SCH (09:44)
[2018-02-10] MEDS: AMIODARONE 200 MG TAB PO SCH (09:44)
[2018-02-10] MEDS: TAMSULOSIN 0.4 MG CAP.ER.24H PO SCH (09:44)
[2018-02-10] MEDS: SENNOSIDES-DOCUSATE SODIUM 1 EACH TAB PO SCH ×2 (09:44→20:02)
[2018-02-10] MEDS: FAMOTIDINE 20 MG TAB PO SCH ×2 (09:44→20:01)
[2018-02-10 10:48] VITALS: BMI 26.3
--- NOTE | 2018-02-10 13:23 | P.PN ---
Subjective Progress Note Date: 02/10/18 HPI: is a 73-year-old male who presented to [facility] on 2017 at that time he had been complaining of shortness of breath and had been getting worse over the next couple of weeks prior to coming in. He does have history of COPD and has been taking his nebulizer treatments and albuterol. Today he is quite confused and shortness breath as well. He denies any chest pain at this time. 01/31/18- patient has been seen and examined and evaluated on rounds. He is resting up in bed on 3 L of supplemental oxygen via nasal cannula. He has been up walking in the room. He was evaluated for possible inpatient rehab and is not a candidate at this time. He does not use any home oxygen. He has been using his incentive spirometer and pulling volumes of approximately 1000 ML's. Does have a congested cough that has been nonproductive. Patient did undergo a ultrasound of the chest this morning which did show bilateral pleural effusions right measuring 7.2 cm left measuring 7.3 cm. 02/01/18- please see Dr. Jono Jauregui note 02/02/18- patient is being seen examined and evaluated today on rounds. Patient sitting up in bed on 2 L of supplemental oxygen via nasal cannula. Chest x-ray from this morning does reveal small bilateral pleural effusions. He does have some shortness of breath with exertion however it is improving. He denies any cough or congestion at this time. Steroid to place continues to be tapered. 02/03/18- patient is being seen examined and evaluated on rounds. He is sitting up in bed on 2 L of supplemental oxygen via nasal cannula. Patient feels his breathing is improved to his family is at bedside and updated on plan of care. Discharge planning to rehab facility is currently in process. He is afebrile no further complaints all labs and reports have been reviewed. 02/04/18- patient is being seen examined and evaluated today on rounds. The patient was supposed to call to rehab today however overnight the patient did convert back into atrial fibrillation. He was started on IV amiodarone and will be transitioned back to oral amiodarone per cardiology. If the patient remains in atrial fibrillation over the weekend and does not convert he is planned to go for cardioversion on [place]. Patient's breathing has been relatively stable throughout this process. He continues on 2 L of oxygen via nasal cannula. Significant other is at bedside and has been updated on plan of care. At this time for my understanding discharge is on hold. 02/05/2018: Patient seen and examined. Patient is currently on room air. Patient states that he feels like he has a lot of congestion. He states that his breathing is just so-so today. The patient states she is frustrated because he was supposed to go to rehab. 02/06/2018: Patient seen and examined. Patient is currently on room air. Patient states that he is feeling much better today. He states he wants to go home soon. His cough is improving. He denies fevers and chills. 02/07/18- patient being seen examined and evaluated today on rounds. He is resting up in bed on room air. He was possibly going to go for cardioversion procedure with cardiology this morning however he has refused. He continues to be atrial fibrillation with rates 90-120. Discharge planning is taking placed back to an ECF at this time. He is afebrile no further complaints. 02/08/18- patient is being seen examined and evaluated today on rounds. Patient is being prepared for discharge yesterday however did have an episode where he tried to slit his wrist with a butter knife. Patient was put on suicide precautions psych did see the patient and recommended that guardianship take over the patient's medical care due to the patient current status. He continues on one-to-one suicide precautions. Upon examination today he is resting up in bed on room air. Her shortness of breath with exertion. Chronic congestive cough. Patient previously was refusing cardioversion. Now with guardianship the patient may possibly undergo the procedure, unsure of the status at this time. 02/09/18- patient is being seen examined and evaluated today on rounds. Patient is doing much better today has a good affect. No longer utilizing one-to-one suicide precautions per recommendations from psychiatry. Guardianship still in process of being obtained. Plan is for discharge to ECF in the near future. Currently breathing is stable. Labs are currently pending. 02/10/18- patient is being seen examined and evaluated today on rounds. She is resting up in bed on room air. States he is feeling better. Currently being set up for discharge. All labs/reports reviewed today. He is hemodynamically stable. No overnight events. Denies any further complaints. Objective - Vital Signs Vital signs: Vital Signs Temp 96.7 F L 02/10/18 07:31 Pulse 92 02/10/18 11:45 Resp 16 02/10/18 07:31 BP 103/75 02/10/18 07:31 Pulse Ox 98 02/10/18 07:31 Intake & Output 02/09/18 02/10/18 02/10/18 18:59 06:59 18:59 Weight 78.5 kg Other: Voiding Method Bedside Commode Diaper # Voids 1 2 - Exam GENERAL EXAM: Alert, comfortable in no apparent distress. HEAD: Normocephalic. EYES: Normal reaction of pupils, equal size. NOSE: Clear with pink turbinates. THROAT: No erythema or exudates. NECK: No masses, no JVD. CHEST: No chest wall deformity. LUNGS: Lungs noted to have decreased air entry throughout. Bases diminished CVS: S1 and S2 normal with no audible mumurs, irregular rhythm. ABDOMEN: No hepatosplenomegaly, normal bowel sounds, no guarding or rigidity. EXTREMITIES: No edema noted, pedal pulses palpable. CENTRAL NERVOUS SYSTEM: No focal deficits, tone is normal in all 4 extremities. - Labs CBC & Chem 7: 02/05/18 05:41 02/04/18 11:30 Assessment and Plan Assessment: Assessment COPD with acute exacerbation Bilateral pleural effusions Chronic moderate pericardial effusion Congestive heart failure systolic with acute overload CAD UTI Metabolic encephalopathy Abdominal ascites Medical debility Plan Patient could be cleared for discharge from a pulmonary standpoint to ECF. Guardianship currently being obtained., 1-1 suicide precautions discontinued per psych recommendations. Patient denies any thoughts or feelings of suicide or hurting himself. Medications have been reviewed and will be continued as ordered. Steroid taper. Continue with diuresis. Ultrasound of bilateral lungs has been reviewed. CT of chest reviewed. Nephrology consultation patient is diuresing well. Chest x-ray is reviewed. Continue with pulmonary hygiene, coughing and deep breathing exercises, and supportive care. Supplemental oxygen to maintain oxygen saturations of 92% or better. Continue nebulizer treatments. GI and DVT prophylaxis. PT/OT. We will continue to monitor labs/results and adjust treatment as necessary. Further recommendations pending. I performed an examination of the patient and discussed their management with the nurse practitioner. I have reviewed the nurse practitioner's note and agree with the documented findings and plan of care.
--- NOTE | 2018-02-10 13:32 | P.PN ---
Subjective Progress Note Date: 02/09/18 this is a 72 years old male with past medical history of hypertension , recent stroke 3 months ago patient of Dr. Metz care of guardian Etelvina last admitted in September for acute gastroenteritis comes in with shortness of breath that has been getting worse for the past few weeks. He denies any nausea or vomiting, lightheadedness or dizziness, no chest pain. chest x-ray done in the ER suggestive of mild CHF, labs were positive for a BNP of 6140 with normal troponin. Initial white is obtainable floor suggestive of a heart rate of 145, blood pressure 94/67 saturated room air 91%. Patient was seen by cardiology who suggested patient has atrial flutter. Will be taken for cardioversion tomorrow. Initiated on Celebrex Patient was initiated on Lasix 80 mg twice a day after a dose of Lasix. 01/27 Patient was noted to have some confusion last night, head CT ordered shows chronic white matter ischemic changes, old watershed infarct, and no acute intracranial changes. Today confusion has improved. Hypotension has improved, blood pressure 105/84 patient underwent TAMIR and cardioversion today. He had successful electrical cardioversion to sinus rhythm, patient noted to have severe cardiomyopathy on TAMIR. TAMIR shows left ventricular cavity is dilated with severe impaired left ventricular systolic function, moderate degree of mitral regurgitation, mild degree of tricuspid regurgitation. Echocardiogram reveals ejection fraction less than 20%, moderate left ventricular hypertrophy, LA is severely dialted, and moderate pericaridal effusion. 01/28 blood pressure on the lower side today. Patient is more confused than yesterday likely secondary to delirium. He does answer questions appropriately once disoriented. Pending for today. Neurology consulted. Patient has significant occlusion of the right common carotid artery external carotid artery and internal carotid artery with retrograde flow in the right vertebral artery representing subclavian steal syndrome. He has seen vascular surgery in the past who has recommended conservative management for the above. Metoprolol dose reduced to 12.5 mg twice daily. Amiodarone initiated at 200 mg daily Lasix held as patient has low blood pressure. Pericardial effusion documented on echocardiogram appears to be chronic secondary to viral infection. 01/29: Patient was seen at bedside he seems to be more confused today, appetite seems to be decreased, sitter at bedside, patient feels weak, unsteady on standing, balance impaired. Physical therapy requested, urine culture and sensitivity requested secondary to delirium, underlying dementia cannot be ruled out, no other neurologic focal deficits noted. Patient does not have any nausea no vomiting, no fever. Vascular has evaluated him, chronic right complete occlusion carotid stenosis no surgery required him and discussed with Dr. Kennedy. Orozco catheter has been placed secondary to urinary retention, postvoid residual over at least 300 mL, Orozco catheter in place patient on Flomax 01/30: Patient was a bit more dyspneic last night, patient required Lasix IV 40 mg last night, with additional 60 mg this morning, nebulized treatments this morning, patient has some bronchospasms, consult to Dr. Nathaly Rogers, CAT scan of the chest was requested, patient was placed on Rocephin for suspected urinary tract infection, cultures are currently pending, patient has increasing O2 requirements from 3 L this can lead to 5 L next cannula overnight, secondary to hypoxemia blood pressure remained stable at 121 systolic however he has low blood pressure around 84 systolic yesterday evening. Solu-Medrol 60 mg started for bronchospasms. 01/31 Patient was seen and evaluated today. He was noted to have large bilateral pleural effusions with multifocal subsegmental atelectasis, extensive bullous emphysematous changes, enlargement of the main pulmonary artery, extensive coronary artery calcifications, small abdominal ascities, right renal atrophy and nodularity of the left adrenal gland, and a small hiatal hernia on his CT scan. Will obtain an ultrasound of the thorax. Patient noted to be hypotensive , last reading 86/51, will treat with Midodrine 10mg TID. Physcial therapy evaluated patient today, he does not require physical assistance, thus does not meet criteria for inpatient rehab. 02/01: Patient was evaluated today, he was noted to be resting in bed with family at bedside. Patient was encouraged to ambulate. Will discontinue Orozco catheter tomorrow. Ultrasound of the thorax revealed moderate bilateral pleural effusions, pulmonology's consult appreciated. Recommends to continue with diuresis, if no response, then possible thoracentesis. Encouraged to use incentive spirometer at the bedside. We'll repeat a chest x-ray tomorrow. 02/02: Patient is seen and followed by Dr. Marin with recommendations to continue Lasix which is 40 mg twice daily. We will change Solu-Medrol over to oral prednisone. Repeat chest x-ray shows small bilateral pleural effusions with minimal bibasilar infiltrates likely compressive atelectasis. Patient is requesting discharge to [facility] for subacute rehab. We have asked for authorization to be obtained as expectation is that [employer] will take at least 24 hours or more to provide authorization. Orozco catheter to be removed. 02/03: Medication reconciliation completed. Patient is ambulating well with PT. He has been able to void since orozco removed. Patient will be discharged to [facility] today in stable condition. All arrangements were completed to discharge patient to [facility] but we are waiting for insurance authorization. Patient denies any new complaints. Breathing status is stable. Patient will be discharged once insurance authorization is completed. 02/04: Insurance authorization for subacute rehab was obtained this morning but patient was found to be in atrial fibrillation with RVR and he was started on amiodarone drip. Patient was previously on oral amiodarone. He has been seen by Dr. Sneed with plan to cardiovert on Wednesday if he remains in atrial fibrillation. Patient's pulse oxing 96% on room air and tolerating well. 02/07: Patient remains in Afib mostly running 90s but up to 120 w activity or anxiety. Cardiology has increased metoprolol. Patient does not wish to undergo cardioversion and wants to be discharged. Patient will be discharged to [facility] in stable condition. Pulse ox 96% on room. 02/08: After patient was prepared for discharge to [facility], patient cut his right wrist with a butter knife. There is a superficial laceration but not needing stitches. Patient apparently passed on that he wanted to . Go through that procedure. Consult was placed with psychiatry and they have recommended the patient have a guardian and also inpatient psychiatric treatment and social work is working on this plan. Also sitter was ordered for bedside. Today, patient denies any concerns. He denies having any chest pain or shortness of breath. His heart rate is running in the low 100s. Pulse ox is 94% on room air. Patient will be transferred to the [facility] floor. Cardiology does not plan for any further intervention. 02/09: Patient has no new complaints. He denies being suicidal. Psychiatry has been following the patient and is now deemed that he does not need a geriatric psych unit. They have cleared him for discharge to [facility]. [facility] is now not accepting the patient. Social work is developing new discharge plan with power of repairer [employer]. Objective - Vital Signs Vital signs: Vital Signs Temp 96.1 F L 02/09/18 07:00 Pulse 88 02/09/18 11:41 Resp 16 02/09/18 11:41 BP 114/81 02/09/18 11:03 Pulse Ox 94 L 02/09/18 07:44 Intake & Output 02/08/18 02/09/18 02/09/18 18:59 06:59 18:59 Intake Total 240 500 Output Total 300 Balance -60 500 Intake: Oral 240 500 Output: Urine 300 Other: # Voids 1 1 - Exam - Constitutional General appearance: cooperative, no acute distress, obese - EENT Eyes: anicteric sclerae, PERRLA, normal appearance ENT: hearing grossly normal - Neck Neck: no lymphadenopathy, normal ROM, no other, no rigidity, no stridor, no thyromegaly - Respiratory Respiratory: bilateral: CTA with bibasilar crackles present on examination, negative: diminished, dullnes - Cardiovascular Rhythm: regular Heart sounds: normal: S1, S2 Abnormal Heart Sounds: no systolic murmur, no diastolic murmur, no rub, no S3 Gallop, no S4 Gallop, no click, no other - Gastrointestinal General gastrointestinal: normal bowel sounds, soft - Integumentary Integumentary: no rash - Neurologic Neurologic: CNII-XII intact - Musculoskeletal Musculoskeletal: strength equal bilaterally - Psychiatric Psychiatric: A&O x's 3, appropriate affect - Labs CBC & Chem 7: 02/05/18 05:41 02/04/18 11:30 Assessment and Plan Plan: 1 Acute systolic heart failure. Previous echo was normal, there is reduction in ejection fraction in this admission with an EF <20%. TAMIR shows severe cardiomyopathy with moderate pericardial effusion which is likely chronic. Receiving Lasix 40 mg by mouth twice a day. Consult with Dr. Tomas street. Cardiology is following. 2 hypotention likely secondary to dehydration and atrial flutter, blood pressure has improved slightly with fluids. Hydrated and stabilized, Lasix has to be restarted secondary to dyspnea and pleural effusion, CHF metoprolol XL 25 mg daily, Midodrine 10mg TID added. Blood pressure stable. 3 New atrial flutter s/p cardioversion with episode of A. fib with RVR- Patient underwent previous cardioversion to sinus rhythm and Dr. Sneed plans to repeat cardioversion on Wednesday if he remains in atrial fibrillation. Continue amiodarone drip, eliquis 5 mg twice a day. 4 hypertension-continue home medications including metoprolol. 6. 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 Follows with Dr. Kennedy. Patient also follow Dr. Jones who recommended conservative management 10 GI prophylaxis Pepcid 20 mg po twice a day 11 DVT prophylaxis on eliquis 12 code status full code 13. Acute delirium. CT head negative for any acute abnormality. EEG does not show any focal, lateralized, or epileptiform abnormalities. urinalysis obtained 01/29, has some pyuria, urine cultures were sent, IV antibiotics Rocephin started 14 impaired balance, physical therapy and occupational therapies to see the patient, skilled therapies expected, patient does not meet criteria for inpatient, will plan for subacute upon discharge 15 large pericardial effusion, moderate, no plans for surgical intervention patient currently is on diuretics cardiology following closely, pulmonary consulted Dr. Guanaco Rogers, u/s of thorax ordered 16 mild protein calorie malnutrition, patient has diminished appetite, nutritional supplementation and requested 17 acute transaminitis most likely secondary to right-sided heart failure, levels are trending downward 18 acute kidney injury and CKD stage II most likely secondary to postobstructive issues, along with ATN with hypotension,, monitor for post void residual after Orozco catheter would be discontinued, continue to monitor chemistries. Consult with Dr. Marin appreciated. 19 pyuria with BPH and lower urinary tract symptomatology, causing delirium, patient will be started on IV Rocephin, cephalosporins oral on discharge 20 COPD exacerbation, Solu-Medrol changed to oral prednisone for the morning and continue nebulized albuterol Atrovent, 21 abdominal ascites noted on CAT scan, most likely secondary to hypoalbuminemia , however other pathologies are not excluded, IV Lasix, continue to monitor 22 Coronary artery calcifications,/CAD, 23. Suicidal ideation and superficial laceration to the right wrist self- inflicted. Psychiatry eval appreciated. Patient have guardianship and inpatient psychiatric services. Social work is following. Discharge plan: Subacute rehab. Social work is following to develop new discharge plan. Impression and plan of care have been directed as dictated by the signing physician. Etelvina Gallegos nurse practitioner acting as scribe for signing physician.
--- NOTE | 2018-02-10 13:39 | P.DS ---
Providers Date of admission: 01/26/18 11:34 Expected date of discharge: 02/10/18 Attending physician: Aki Moura MD Consults: 01/25/18 14:45 Consult Physician Routine Consulting Provider: Abel Rogers Consult Reason/Comments: heart failure Do you want consulting provider notified?: Yes 01/27/18 15:08 Consult Physician Routine Consulting Provider: Michelle Hay Consult Reason/Comments: mental status change Do you want consulting provider notified?: Already Contacted 01/28/18 15:41 Consult Physician Stat Consulting Provider: Kevin Kennedy Consult Reason/Comments: critical carotid us. Do you want consulting provider notified?: Yes 01/29/18 19:47 Consult Physician Routine Consulting Provider: Manjeet Coronel Consult Reason/Comments: inpatient rehab, debility Do you want consulting provider notified?: Yes, Notify in am 01/30/18 09:38 Consult Physician Routine Consulting Provider: Tom Rogers Consult Reason/Comments: dyspnea effusion, hypoxemia Do you want consulting provider notified?: Yes 01/31/18 15:05 Consult Physician Stat Consulting Provider: Radha Marin Consult Reason/Comments: diuresis Do you want consulting provider notified?: Yes 02/07/18 10:24 Consult Physician Routine Consulting Provider: Shanda Navarrete Consult Reason/Comments: suicidal ideation Do you want consulting provider notified?: Yes Primary care physician: Alexei Metz [facility] Course: This is a 72 years old male with past medical history of hypertension , recent stroke 3 months ago patient of Dr. Metz care of [facility] last admitted in September for acute gastroenteritis comes in with shortness of breath that has been getting worse for the past few weeks. He denies any nausea or vomiting, lightheadedness or dizziness, no chest pain. chest x-ray done in the ER suggestive of mild CHF, labs were positive for a BNP of 6140 with normal troponin. Initial white is obtainable floor suggestive of a heart rate of 145, blood pressure 94/67 saturated room air 91%. Patient was seen by cardiology who suggested patient has atrial flutter. Will be taken for cardioversion tomorrow. Initiated on Celebrex Patient was initiated on Lasix 80 mg twice a day after a dose of Lasix. 01/27 Patient was noted to have some confusion last night, head CT ordered shows chronic white matter ischemic changes, old watershed infarct, and no acute intracranial changes. Today confusion has improved. Hypotension has improved, blood pressure 105/84 patient underwent TAMIR and cardioversion today. He had successful electrical cardioversion to sinus rhythm, patient noted to have severe cardiomyopathy on TAMIR. TAMIR shows left ventricular cavity is dilated with severe impaired left ventricular systolic function, moderate degree of mitral regurgitation, mild degree of tricuspid regurgitation. Echocardiogram reveals ejection fraction less than 20%, moderate left ventricular hypertrophy, LA is severely dialted, and moderate pericaridal effusion. 01/28 blood pressure on the lower side today. Patient is more confused than yesterday likely secondary to delirium. He does answer questions appropriately once disoriented. Pending for today. Neurology consulted. Patient has significant occlusion of the right common carotid artery external carotid artery and internal carotid artery with retrograde flow in the right vertebral artery representing subclavian steal syndrome. He has seen vascular surgery in the past who has recommended conservative management for the above. Metoprolol dose reduced to 12.5 mg twice daily. Amiodarone initiated at 200 mg daily Lasix held as patient has low blood pressure. Pericardial effusion documented on echocardiogram appears to be chronic secondary to viral infection. 01/29: Patient was seen at bedside he seems to be more confused today, appetite seems to be decreased, sitter at bedside, patient feels weak, unsteady on standing, balance impaired. Physical therapy requested, urine culture and sensitivity requested secondary to delirium, underlying dementia cannot be ruled out, no other neurologic focal deficits noted. Patient does not have any nausea no vomiting, no fever. Vascular has evaluated him, chronic right complete occlusion carotid stenosis no surgery required him and discussed with Dr. Kennedy. Orozco catheter has been placed secondary to urinary retention, postvoid residual over at least 300 mL, Orozco catheter in place patient on Flomax 01/30: Patient was a bit more dyspneic last night, patient required Lasix IV 40 mg last night, with additional 60 mg this morning, nebulized treatments this morning, patient has some bronchospasms, consult to Dr. Nathaly Rogers, CAT scan of the chest was requested, patient was placed on Rocephin for suspected urinary tract infection, cultures are currently pending, patient has increasing O2 requirements from 3 L this can lead to 5 L next cannula overnight, secondary to hypoxemia blood pressure remained stable at 121 systolic however he has low blood pressure around 84 systolic yesterday evening. Solu-Medrol 60 mg started for bronchospasms. 01/31 Patient was seen and evaluated today. He was noted to have large bilateral pleural effusions with multifocal subsegmental atelectasis, extensive bullous emphysematous changes, enlargement of the main pulmonary artery, extensive coronary artery calcifications, small abdominal ascities, right renal atrophy and nodularity of the left adrenal gland, and a small hiatal hernia on his CT scan. Will obtain an ultrasound of the thorax. Patient noted to be hypotensive , last reading 86/51, will treat with Midodrine 10mg TID. Physcial therapy evaluated patient today, he does not require physical assistance, thus does not meet criteria for inpatient rehab. 02/01: Patient was evaluated today, he was noted to be resting in bed with family at bedside. Patient was encouraged to ambulate. Will discontinue Orozco catheter tomorrow. Ultrasound of the thorax revealed moderate bilateral pleural effusions, pulmonology's consult appreciated. Recommends to continue with diuresis, if no response, then possible thoracentesis. Encouraged to use incentive spirometer at the bedside. We'll repeat a chest x-ray tomorrow. 02/02: Patient is seen and followed by Dr. Marin with recommendations to continue Lasix which is 40 mg twice daily. We will change Solu-Medrol over to oral prednisone. Repeat chest x-ray shows small bilateral pleural effusions with minimal bibasilar infiltrates likely compressive atelectasis. Patient is requesting discharge to [facility] for subacute rehab. We have asked for authorization to be obtained as expectation is that [employer] will take at least 24 hours or more to provide authorization. Orozco catheter to be removed. 02/03: Medication reconciliation completed. Patient is ambulating well with PT. He has been able to void since orozco removed. Patient will be discharged to [facility] today in stable condition. All arrangements were completed to discharge patient to [facility] but we are waiting for insurance authorization. Patient denies any new complaints. Breathing status is stable. Patient will be discharged once insurance authorization is completed. 02/04: Insurance authorization for subacute rehab was obtained this morning but patient was found to be in atrial fibrillation with RVR and he was started on amiodarone drip. Patient was previously on oral amiodarone. He has been seen by Dr. Sneed with plan to cardiovert on Wednesday if he remains in atrial fibrillation. Patient's pulse oxing 96% on room air and tolerating well. 02/07: Patient remains in Afib mostly running 90s but up to 120 w activity or anxiety. Cardiology has increased metoprolol. Patient does not wish to undergo cardioversion and wants to be discharged. Patient will be discharged to [facility] in stable condition. Pulse ox 96% on room air. 02/08: After patient was prepared for discharge to [facility], patient cut his right wrist with a butter knife. There is a superficial laceration but not needing stitches. Patient apparently passed on that he wanted to . Go through that procedure. Consult was placed with psychiatry and they have recommended the patient have a guardian and also inpatient psychiatric treatment and social work is working on this plan. Also sitter was ordered for bedside. Today, patient denies any concerns. He denies having any chest pain or shortness of breath. His heart rate is running in the low 100s. Pulse ox is 94% on room air. Patient will be transferred to the [facility] floor. Cardiology does not plan for any further intervention. 02/09: Patient has no new complaints. He denies being suicidal. Psychiatry has been following the patient and is now deemed that he does not need a geriatric psych unit. They have cleared him for discharge to [facility]. [facility] is now not accepting the patient. Social work is developing new discharge plan with power of trade mark attorney. 02/10: Again today, patient was prepared for discharge but nursing homes would not accept him. Patient is now been accepted to inpatient rehab at [facility]. Patient will be needing insurance authorization and once this is obtained, patient will be discharged in stable condition. Discharge diagnoses: 1 Acute systolic heart failure. 2 hypotention likely secondary to dehydration and atrial flutter 3 New atrial flutter s/p cardioversion, chronic atrial fibrillation 4 hypertension 6. 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 Follows with Dr. Kennedy. 11. Acute delirium. 12. large pericardial effusion, moderate, no plans for surgical intervention 13. mild protein calorie malnutrition 14. acute transaminitis most likely secondary to right-sided heart failure 15. acute kidney injury and CKD stage II most likely secondary to postobstructive issues, along with ATN with hypotension 16. COPD exacerbation 17. abdominal ascites noted on CAT scan, most likely secondary to hypoalbuminemia 18. Coronary artery calcifications,/CAD, 19. Suicidal ideation and superficial laceration to the right wrist self- inflicted. Suicidal ideation resolved. Discharge plan: [facility] for subacute rehab Impression and plan of care have been directed as dictated by the signing physician. Etelvina Gallegos nurse practitioner acting as scribe for signing physician. Patient Condition at Discharge: Good Plan - Discharge Summary Discharge Rx Participant: Yes New Discharge Prescriptions: New ALPRAZolam [Xanax] 0.25 mg PO BID PRN #60 tab PRN Reason: Anxiety Amiodarone [Cordarone] 200 mg PO DAILY tab Apixaban [Eliquis] 5 mg PO BID #0 tab Budesonide [Pulmicort] 0.5 mg INHALATION RT-BID nebu Famotidine [Pepcid] 20 mg PO BID tab guaiFENesin [Mucinex] 600 mg PO Q12HR tablet.er Ipratropium-Albuterol Nebulize [Duoneb 0.5 mg-3 mg/3 ml Soln] 3 ml INHALATION RT-QID ampul.neb Ipratropium-Albuterol Nebulize [Duoneb 0.5 mg-3 mg/3 ml Soln] 3 ml INHALATION RT-Q2H PRN ampul.neb PRN Reason: Shortness Of Breath Or Wheezing Losartan [Cozaar] 12.5 mg PO DAILY tab Midodrine [ProAmatine] 10 mg PO AC-TID tab Nicotine 21Mg/24Hr Patch [Habitrol] 1 patch TRANSDERM DAILY patch predniSONE 0 mg PO DIRECTED #30 tab Metoprolol Tartrate [Lopressor] 25 mg PO BID tab Furosemide [Lasix] 20 mg PO BID@0900,1600 tab Spironolactone [Aldactone] 12.5 mg PO DAILY tab Continue Finasteride [Proscar] 5 mg PO DAILY Aspirin 81 mg PO HS Montelukast Sodium [Singulair] 10 mg PO HS Tamsulosin [Flomax] 0.4 mg PO DAILY Atorvastatin Calcium [Lipitor] 40 mg PO HS traMADol HCl [Ultram] 50 mg PO Q6H PRN #120 tab PRN Reason: Pain Changed tiZANidine HCL 2 mg PO BID PRN #0 PRN Reason: muscle spasms Discontinued Saw [place] 160 mg PO HS Albuterol Nebulized [Ventolin Nebulized] 2.5 mg INHALATION Q6H PRN PRN Reason: Shortness Of Breath Discharge Medication List Finasteride [Proscar] 5 mg PO DAILY 04/09/17 [History] Aspirin 81 mg PO HS 01/25/18 [History] Atorvastatin Calcium [Lipitor] 40 mg PO HS 01/25/18 [History] Montelukast Sodium [Singulair] 10 mg PO HS 01/25/18 [History] Tamsulosin [Flomax] 0.4 mg PO DAILY 01/25/18 [History] ALPRAZolam [Xanax] 0.25 mg PO BID PRN #60 tab 02/03/18 [Rx] Amiodarone [Cordarone] 200 mg PO DAILY tab 02/03/18 [Rx] Apixaban [Eliquis] 5 mg PO BID #0 tab 02/03/18 [Rx] Budesonide [Pulmicort] 0.5 mg INHALATION RT-BID nebu 02/03/18 [Rx] Famotidine [Pepcid] 20 mg PO BID tab 02/03/18 [Rx] Ipratropium-Albuterol Nebulize [Duoneb 0.5 mg-3 mg/3 ml Soln] 3 ml INHALATION RT -Q2H PRN ampul.neb 02/03/18 [Rx] Ipratropium-Albuterol Nebulize [Duoneb 0.5 mg-3 mg/3 ml Soln] 3 ml INHALATION RT -QID ampul.neb 02/03/18 [Rx] Losartan [Cozaar] 12.5 mg PO DAILY tab 02/03/18 [Rx] Midodrine [ProAmatine] 10 mg PO AC-TID tab 02/03/18 [Rx] Nicotine 21Mg/24Hr Patch [Habitrol] 1 patch TRANSDERM DAILY patch 02/03/18 [Rx] guaiFENesin [Mucinex] 600 mg PO Q12HR tablet.er 02/03/18 [Rx] predniSONE 0 mg PO DIRECTED #30 tab 02/03/18 [Rx] tiZANidine HCL 2 mg PO BID PRN #0 02/03/18 [Rx] traMADol HCl [Ultram] 50 mg PO Q6H PRN #120 tab 02/03/18 [Rx] Metoprolol Tartrate [Lopressor] 25 mg PO BID tab 02/07/18 [Rx] Furosemide [Lasix] 20 mg PO BID@0900,1600 tab 02/09/18 [Rx] Spironolactone [Aldactone] 12.5 mg PO DAILY tab 02/09/18 [Rx] Follow up Appointment(s)/Referral(s): [facility] [Provider Group] - 1 Week Pedro Sneed MD [STAFF PHYSICIAN] - 3 Weeks Alexei Metz MD [Primary Care Provider] - 1 Week (after dc from ECF) Tom Rogers MD [STAFF PHYSICIAN] - 3 Days Patient Instructions/Handouts: Heart Failure (DC), A-fib (Atrial Fibrillation) (DC), Pleural Effusion (DC), Cardioversion (DC) Activity/Diet/Wound Care/Special Instructions: Diet: cardiac O2 2-3 L n/c Activity as tolerated Discharge Disposition: TRANSFER TO SNF/ECF
[2018-02-10] MEDS: MONTELUKAST 10 MG TAB PO SCH (20:01)
[2018-02-10] MEDS: ATORVASTATIN 40 MG TAB PO SCH (20:02)
[2018-02-11] MEDS: BUDESONIDE 0.5 MG/2 ML NEBU INHALATION SCH ×2 (07:06→19:50)
[2018-02-11] MEDS: IPRATROPIUM-ALBUTEROL 3 ML NEB INHALATION SCH ×4 (07:06→19:50)
[2018-02-11] MEDS: predniSONE 20 MG TAB PO SCH (08:21)
[2018-02-11] MEDS: MIDODRINE 5 MG TAB PO SCH ×3 (08:21→16:50)
[2018-02-11] MEDS: guaiFENesin 600 MG TABLET.ER PO SCH ×2 (08:21→20:07)
[2018-02-11] MEDS: SENNOSIDES-DOCUSATE SODIUM 1 EACH TAB PO SCH ×2 (08:21→20:09)
[2018-02-11] MEDS: METOPROLOL TARTRATE 25 MG TAB PO SCH ×2 (08:21→20:07)
[2018-02-11] MEDS: FAMOTIDINE 20 MG TAB PO SCH ×2 (08:21→20:07)
[2018-02-11] MEDS: TAMSULOSIN 0.4 MG CAP.ER.24H PO SCH (08:21)
[2018-02-11] MEDS: SPIRONOLACTONE 25 MG TAB PO SCH (08:21)
[2018-02-11] MEDS: APIXABAN 5 MG TAB PO SCH ×2 (08:21→20:07)
[2018-02-11] MEDS: LOSARTAN 25 MG TAB PO SCH (08:21)
[2018-02-11] MEDS: AMIODARONE 200 MG TAB PO SCH (08:22)
[2018-02-11] MEDS: NICOTINE 21MG/24HR PATCH TRANSDERM SCH (08:22)
[2018-02-11] MEDS: FINASTERIDE 5 MG TAB PO SCH (08:28)
[2018-02-11] MEDS: FUROSEMIDE 20 MG TAB PO SCH ×2 (08:28→16:50)
--- NOTE | 2018-02-11 09:19 | P.PN ---
Subjective Progress Note Date: 02/11/18 HPI: is a 73-year-old male who presented to [facility] on 2017 at that time he had been complaining of shortness of breath and had been getting worse over the next couple of weeks prior to coming in. He does have history of COPD and has been taking his nebulizer treatments and albuterol. Today he is quite confused and shortness breath as well. He denies any chest pain at this time. 01/31/18- patient has been seen and examined and evaluated on rounds. He is resting up in bed on 3 L of supplemental oxygen via nasal cannula. He has been up walking in the room. He was evaluated for possible inpatient rehab and is not a candidate at this time. He does not use any home oxygen. He has been using his incentive spirometer and pulling volumes of approximately 1000 ML's. Does have a congested cough that has been nonproductive. Patient did undergo a ultrasound of the chest this morning which did show bilateral pleural effusions right measuring 7.2 cm left measuring 7.3 cm. 02/01/18- please see Dr. Jono Jauregui note 02/02/18- patient is being seen examined and evaluated today on rounds. Patient sitting up in bed on 2 L of supplemental oxygen via nasal cannula. Chest x-ray from this morning does reveal small bilateral pleural effusions. He does have some shortness of breath with exertion however it is improving. He denies any cough or congestion at this time. Steroid to place continues to be tapered. 02/03/18- patient is being seen examined and evaluated on rounds. He is sitting up in bed on 2 L of supplemental oxygen via nasal cannula. Patient feels his breathing is improved to his family is at bedside and updated on plan of care. Discharge planning to rehab facility is currently in process. He is afebrile no further complaints all labs and reports have been reviewed. 02/04/18- patient is being seen examined and evaluated today on rounds. The patient was supposed to call to rehab today however overnight the patient did convert back into atrial fibrillation. He was started on IV amiodarone and will be transitioned back to oral amiodarone per cardiology. If the patient remains in atrial fibrillation over the weekend and does not convert he is planned to go for cardioversion on [place]. Patient's breathing has been relatively stable throughout this process. He continues on 2 L of oxygen via nasal cannula. Significant other is at bedside and has been updated on plan of care. At this time for my understanding discharge is on hold. 02/05/2018: Patient seen and examined. Patient is currently on room air. Patient states that he feels like he has a lot of congestion. He states that his breathing is just so-so today. The patient states she is frustrated because he was supposed to go to rehab. 02/06/2018: Patient seen and examined. Patient is currently on room air. Patient states that he is feeling much better today. He states he wants to go home soon. His cough is improving. He denies fevers and chills. 02/07/18- patient being seen examined and evaluated today on rounds. He is resting up in bed on room air. He was possibly going to go for cardioversion procedure with cardiology this morning however he has refused. He continues to be atrial fibrillation with rates 90-120. Discharge planning is taking placed back to an ECF at this time. He is afebrile no further complaints. 02/08/18- patient is being seen examined and evaluated today on rounds. Patient is being prepared for discharge yesterday however did have an episode where he tried to slit his wrist with a butter knife. Patient was put on suicide precautions psych did see the patient and recommended that guardianship take over the patient's medical care due to the patient current status. He continues on one-to-one suicide precautions. Upon examination today he is resting up in bed on room air. Her shortness of breath with exertion. Chronic congestive cough. Patient previously was refusing cardioversion. Now with guardianship the patient may possibly undergo the procedure, unsure of the status at this time. 02/09/18- patient is being seen examined and evaluated today on rounds. Patient is doing much better today has a good affect. No longer utilizing one-to-one suicide precautions per recommendations from psychiatry. Guardianship still in process of being obtained. Plan is for discharge to ECF in the near future. Currently breathing is stable. Labs are currently pending. 02/10/18- patient is being seen examined and evaluated today on rounds. She is resting up in bed on room air. States he is feeling better. Currently being set up for discharge. All labs/reports reviewed today. He is hemodynamically stable. No overnight events. Denies any further complaints. 02/11/18- patient has been seen examined and evaluated today on rounds. He is resting up in bed on room air. He has had a good appetite. Did eat most of his breakfast. States he feels better each day. He is looking forward to discharge to rehab today. Objective - Vital Signs Vital signs: Vital Signs Temp 96.4 F L 02/11/18 08:19 Pulse 77 02/11/18 08:19 Resp 18 02/11/18 08:19 BP 84/54 02/11/18 08:19 Pulse Ox 95 02/11/18 08:19 Intake & Output 02/10/18 02/11/18 02/11/18 18:59 06:59 18:59 Weight 78.5 kg 81 kg Other: Voiding Method Toilet Toilet Bedside Commode Bedside Commode Diaper Diaper # Voids 3 2 # Bowel Movements 1 - Exam GENERAL EXAM: Alert, comfortable in no apparent distress. HEAD: Normocephalic. EYES: Normal reaction of pupils, equal size. NOSE: Clear with pink turbinates. THROAT: No erythema or exudates. NECK: No masses, no JVD. CHEST: No chest wall deformity. LUNGS: Lungs noted to have decreased air entry throughout. Bases diminished CVS: S1 and S2 normal with no audible mumurs, irregular rhythm. ABDOMEN: No hepatosplenomegaly, normal bowel sounds, no guarding or rigidity. EXTREMITIES: No edema noted, pedal pulses palpable. CENTRAL NERVOUS SYSTEM: No focal deficits, tone is normal in all 4 extremities. - Labs CBC & Chem 7: 02/05/18 05:41 02/04/18 11:30 Assessment and Plan Assessment: Assessment COPD with acute exacerbation Bilateral pleural effusions Chronic moderate pericardial effusion Congestive heart failure systolic with acute overload CAD UTI Metabolic encephalopathy Abdominal ascites Medical debility Plan Patient could be cleared for discharge from a pulmonary standpoint to ECF. Patient is stable from a pulmonary standpoint. We will sign off, any further questions or concerns please do not hesitate to contact us. Medications have been reviewed and will be continued as ordered. Steroid taper. Continue with diuresis. Ultrasound of bilateral lungs has been reviewed. CT of chest reviewed. Nephrology consultation patient is diuresing well. Chest x-ray is reviewed. Continue with pulmonary hygiene, coughing and deep breathing exercises, and supportive care. Supplemental oxygen to maintain oxygen saturations of 92% or better. Continue nebulizer treatments. GI and DVT prophylaxis. PT/OT. We will continue to monitor labs/results and adjust treatment as necessary. Further recommendations pending. I performed an examination of the patient and discussed their management with the nurse practitioner. I have reviewed the nurse practitioner's note and agree with the documented findings and plan of care.
[2018-02-11] MEDS: ACETAMINOPHEN TAB 325 MG TAB PO PRN ×3 (11:17→23:01)
[2018-02-11] MEDS: MONTELUKAST 10 MG TAB PO SCH (20:07)
[2018-02-11] MEDS: ATORVASTATIN 40 MG TAB PO SCH (20:07)
[2018-02-12] MEDS: ACETAMINOPHEN TAB 325 MG TAB PO PRN (05:34)
[2018-02-12] MEDS: SENNOSIDES-DOCUSATE SODIUM 1 EACH TAB PO SCH ×2 (07:45→20:40)
[2018-02-12] MEDS: NICOTINE 21MG/24HR PATCH TRANSDERM SCH (07:47)
[2018-02-12] MEDS: predniSONE 20 MG TAB PO SCH (07:47)
[2018-02-12] MEDS: MIDODRINE 5 MG TAB PO SCH ×3 (07:47→17:19)
[2018-02-12] MEDS: METOPROLOL TARTRATE 25 MG TAB PO SCH ×2 (07:48→20:46)
[2018-02-12] MEDS: SPIRONOLACTONE 25 MG TAB PO SCH (07:48)
[2018-02-12] MEDS: TAMSULOSIN 0.4 MG CAP.ER.24H PO SCH (07:48)
[2018-02-12] MEDS: LOSARTAN 25 MG TAB PO SCH (07:49)
[2018-02-12] MEDS: guaiFENesin 600 MG TABLET.ER PO SCH ×2 (07:49→20:46)
[2018-02-12] MEDS: FUROSEMIDE 20 MG TAB PO SCH ×2 (07:49→17:19)
[2018-02-12] MEDS: FINASTERIDE 5 MG TAB PO SCH (07:49)
[2018-02-12] MEDS: APIXABAN 5 MG TAB PO SCH ×2 (07:50→20:46)
[2018-02-12] MEDS: AMIODARONE 200 MG TAB PO SCH (07:50)
[2018-02-12] MEDS: FAMOTIDINE 20 MG TAB PO SCH ×2 (07:50→20:46)
[2018-02-12] MEDS: IPRATROPIUM-ALBUTEROL 3 ML NEB INHALATION SCH ×4 (08:14→20:38)
[2018-02-12] MEDS: BUDESONIDE 0.5 MG/2 ML NEBU INHALATION SCH ×2 (08:14→20:38)
--- NOTE | 2018-02-12 16:16 | P.PN ---
Subjective Progress Note Date: 02/12/18 this is a 72 years old male with past medical history of hypertension , recent stroke 3 months ago patient of Dr. Metz care of guardian Etelvina last admitted in September for acute gastroenteritis comes in with shortness of breath that has been getting worse for the past few weeks. He denies any nausea or vomiting, lightheadedness or dizziness, no chest pain. chest x-ray done in the ER suggestive of mild CHF, labs were positive for a BNP of 6140 with normal troponin. Initial white is obtainable floor suggestive of a heart rate of 145, blood pressure 94/67 saturated room air 91%. Patient was seen by cardiology who suggested patient has atrial flutter. Will be taken for cardioversion tomorrow. Initiated on Celebrex Patient was initiated on Lasix 80 mg twice a day after a dose of Lasix. 01/27 Patient was noted to have some confusion last night, head CT ordered shows chronic white matter ischemic changes, old watershed infarct, and no acute intracranial changes. Today confusion has improved. Hypotension has improved, blood pressure 105/84 patient underwent TAMIR and cardioversion today. He had successful electrical cardioversion to sinus rhythm, patient noted to have severe cardiomyopathy on TAMIR. TAMIR shows left ventricular cavity is dilated with severe impaired left ventricular systolic function, moderate degree of mitral regurgitation, mild degree of tricuspid regurgitation. Echocardiogram reveals ejection fraction less than 20%, moderate left ventricular hypertrophy, LA is severely dialted, and moderate pericaridal effusion. 01/28 blood pressure on the lower side today. Patient is more confused than yesterday likely secondary to delirium. He does answer questions appropriately once disoriented. Pending for today. Neurology consulted. Patient has significant occlusion of the right common carotid artery external carotid artery and internal carotid artery with retrograde flow in the right vertebral artery representing subclavian steal syndrome. He has seen vascular surgery in the past who has recommended conservative management for the above. Metoprolol dose reduced to 12.5 mg twice daily. Amiodarone initiated at 200 mg daily Lasix held as patient has low blood pressure. Pericardial effusion documented on echocardiogram appears to be chronic secondary to viral infection. 01/29: Patient was seen at bedside he seems to be more confused today, appetite seems to be decreased, sitter at bedside, patient feels weak, unsteady on standing, balance impaired. Physical therapy requested, urine culture and sensitivity requested secondary to delirium, underlying dementia cannot be ruled out, no other neurologic focal deficits noted. Patient does not have any nausea no vomiting, no fever. Vascular has evaluated him, chronic right complete occlusion carotid stenosis no surgery required him and discussed with Dr. Kennedy. Orozco catheter has been placed secondary to urinary retention, postvoid residual over at least 300 mL, Orozco catheter in place patient on Flomax 01/30: Patient was a bit more dyspneic last night, patient required Lasix IV 40 mg last night, with additional 60 mg this morning, nebulized treatments this morning, patient has some bronchospasms, consult to Dr. Nathaly Rogers, CAT scan of the chest was requested, patient was placed on Rocephin for suspected urinary tract infection, cultures are currently pending, patient has increasing O2 requirements from 3 L this can lead to 5 L next cannula overnight, secondary to hypoxemia blood pressure remained stable at 121 systolic however he has low blood pressure around 84 systolic yesterday evening. Solu-Medrol 60 mg started for bronchospasms. 01/31 Patient was seen and evaluated today. He was noted to have large bilateral pleural effusions with multifocal subsegmental atelectasis, extensive bullous emphysematous changes, enlargement of the main pulmonary artery, extensive coronary artery calcifications, small abdominal ascities, right renal atrophy and nodularity of the left adrenal gland, and a small hiatal hernia on his CT scan. Will obtain an ultrasound of the thorax. Patient noted to be hypotensive , last reading 86/51, will treat with Midodrine 10mg TID. Physcial therapy evaluated patient today, he does not require physical assistance, thus does not meet criteria for inpatient rehab. 02/01: Patient was evaluated today, he was noted to be resting in bed with family at bedside. Patient was encouraged to ambulate. Will discontinue Orozco catheter tomorrow. Ultrasound of the thorax revealed moderate bilateral pleural effusions, pulmonology's consult appreciated. Recommends to continue with diuresis, if no response, then possible thoracentesis. Encouraged to use incentive spirometer at the bedside. We'll repeat a chest x-ray tomorrow. 02/02: Patient is seen and followed by Dr. Marin with recommendations to continue Lasix which is 40 mg twice daily. We will change Solu-Medrol over to oral prednisone. Repeat chest x-ray shows small bilateral pleural effusions with minimal bibasilar infiltrates likely compressive atelectasis. Patient is requesting discharge to [facility] for subacute rehab. We have asked for authorization to be obtained as expectation is that [employer] will take at least 24 hours or more to provide authorization. Orozco catheter to be removed. 02/03: Medication reconciliation completed. Patient is ambulating well with PT. He has been able to void since orozco removed. Patient will be discharged to [facility] today in stable condition. All arrangements were completed to discharge patient to [facility] but we are waiting for insurance authorization. Patient denies any new complaints. Breathing status is stable. Patient will be discharged once insurance authorization is completed. 02/04: Insurance authorization for subacute rehab was obtained this morning but patient was found to be in atrial fibrillation with RVR and he was started on amiodarone drip. Patient was previously on oral amiodarone. He has been seen by Dr. Sneed with plan to cardiovert on Wednesday if he remains in atrial fibrillation. Patient's pulse oxing 96% on room air and tolerating well. 02/07: Patient remains in Afib mostly running 90s but up to 120 w activity or anxiety. Cardiology has increased metoprolol. Patient does not wish to undergo cardioversion and wants to be discharged. Patient will be discharged to [facility] in stable condition. Pulse ox 96% on room. 02/08: After patient was prepared for discharge to [facility], patient cut his right wrist with a butter knife. There is a superficial laceration but not needing stitches. Patient apparently passed on that he wanted to . Go through that procedure. Consult was placed with psychiatry and they have recommended the patient have a guardian and also inpatient psychiatric treatment and social work is working on this plan. Also sitter was ordered for bedside. Today, patient denies any concerns. He denies having any chest pain or shortness of breath. His heart rate is running in the low 100s. Pulse ox is 94% on room air. Patient will be transferred to the [facility] floor. Cardiology does not plan for any further intervention. 02/09: Patient has no new complaints. He denies being suicidal. Psychiatry has been following the patient and is now deemed that he does not need a geriatric psych unit. They have cleared him for discharge to [facility]. [facility] is now not accepting the patient. Social work is developing new discharge plan with power of commercial real estate attorney. 02/12 Patient has no new complaints. Denies any shortness of breath, chest pain, nausea, vomiting or abdominal pain. Awaiting insurance authorization for patient to be moved to inpatient rehab. We will ask PT to reevaluate the patient for possible discharge home with home care Objective - Vital Signs Vital signs: Vital Signs Temp 98.6 F 02/12/18 14:37 Pulse 118 H 02/12/18 14:37 Resp 22 02/12/18 14:37 BP 70/42 02/12/18 14:37 Pulse Ox 95 02/12/18 14:37 Intake & Output 02/11/18 02/12/18 02/12/18 18:59 06:59 18:59 Intake Total 900 Balance 900 Weight 80.5 kg Intake: Oral 900 Other: # Voids 2 3 5 # Bowel Movements 1 2 1 - Exam - Exam - Constitutional General appearance: cooperative, no acute distress, obese - EENT Eyes: anicteric sclerae, PERRLA, normal appearance ENT: hearing grossly normal - Neck Neck: no lymphadenopathy, normal ROM, no other, no rigidity, no stridor, no thyromegaly - Respiratory Respiratory: bilateral: CTA with bibasilar crackles present on examination, negative: diminished, dullnes - Cardiovascular Rhythm: regular Heart sounds: normal: S1, S2 Abnormal Heart Sounds: no systolic murmur, no diastolic murmur, no rub, no S3 Gallop, no S4 Gallop, no click, no other - Gastrointestinal General gastrointestinal: normal bowel sounds, soft - Integumentary Integumentary: no rash - Neurologic Neurologic: CNII-XII intact - Musculoskeletal Musculoskeletal: strength equal bilaterally - Psychiatric Psychiatric: A&O x's 3, appropriate affect - Labs CBC & Chem 7: 02/05/18 05:41 02/04/18 11:30 Assessment and Plan Plan: 1 Acute systolic heart failure. Previous echo was normal, there is reduction in ejection fraction in this admission with an EF <20%. TAMIR shows severe cardiomyopathy with moderate pericardial effusion which is likely chronic. Receiving Lasix 40 mg by mouth twice a day. Consult with Dr. Tomas street. Cardiology is following. 2 hypotention likely secondary to dehydration and atrial flutter, blood pressure has improved slightly with fluids. Hydrated and stabilized, Lasix has to be restarted secondary to dyspnea and pleural effusion, CHF metoprolol XL 25 mg daily, Midodrine 10mg TID added. Blood pressure stable. 3 New atrial flutter s/p cardioversion with episode of A. fib with RVR- Patient underwent previous cardioversion to sinus rhythm and Dr. Sneed plans to repeat cardioversion on Wednesday if he remains in atrial fibrillation. Continue amiodarone drip, eliquis 5 mg twice a day. 4 hypertension-continue home medications including metoprolol. 6. 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 Follows with Dr. Kennedy. Patient also follow Dr. Jones who recommended conservative management 10 GI prophylaxis Pepcid 20 mg po twice a day 11 DVT prophylaxis on eliquis 12 code status full code 13. Acute delirium. CT head negative for any acute abnormality. EEG does not show any focal, lateralized, or epileptiform abnormalities. urinalysis obtained 01/29, has some pyuria, urine cultures were sent, IV antibiotics Rocephin started 14 impaired balance, physical therapy and occupational therapies to see the patient, skilled therapies expected, patient does not meet criteria for inpatient, will plan for subacute upon discharge 15 large pericardial effusion, moderate, no plans for surgical intervention patient currently is on diuretics cardiology following closely, pulmonary consulted Dr. Guanaco Rogers, u/s of thorax ordered 16 mild protein calorie malnutrition, patient has diminished appetite, nutritional supplementation and requested 17 acute transaminitis most likely secondary to right-sided heart failure, levels are trending downward 18 acute kidney injury and CKD stage II most likely secondary to postobstructive issues, along with ATN with hypotension,, monitor for post void residual after Orozco catheter would be discontinued, continue to monitor chemistries. Consult with Dr. Tomas street. 19 pyuria with BPH and lower urinary tract symptomatology, causing delirium, patient will be started on IV Rocephin, cephalosporins oral on discharge 20 COPD exacerbation, Solu-Medrol changed to oral prednisone for the morning and continue nebulized albuterol Atrovent, 21 abdominal ascites noted on CAT scan, most likely secondary to hypoalbuminemia , however other pathologies are not excluded, IV Lasix, continue to monitor 22 Coronary artery calcifications,/CAD, 23. Suicidal ideation and superficial laceration to the right wrist self- inflicted. Psychiatry eval appreciated. Patient have guardianship and inpatient psychiatric services. Social work is following. Discharge plan: Subacute rehab. Social work is following to develop new discharge plan.
[2018-02-12] MEDS: ATORVASTATIN 40 MG TAB PO SCH (20:46)
[2018-02-12] MEDS: MONTELUKAST 10 MG TAB PO SCH (20:46)
[2018-02-13] MEDS: IPRATROPIUM-ALBUTEROL 3 ML NEB INHALATION SCH ×4 (07:49→20:49)
[2018-02-13] MEDS: BUDESONIDE 0.5 MG/2 ML NEBU INHALATION SCH ×2 (07:49→20:49)
[2018-02-13] MEDS: APIXABAN 5 MG TAB PO SCH ×2 (09:16→20:54)
[2018-02-13] MEDS: TAMSULOSIN 0.4 MG CAP.ER.24H PO SCH (09:16)
[2018-02-13] MEDS: FUROSEMIDE 20 MG TAB PO SCH ×2 (09:16→17:51)
[2018-02-13] MEDS: predniSONE 20 MG TAB PO SCH (09:17)
[2018-02-13] MEDS: ALPRAZolam 0.25 MG TAB PO PRN (09:17)
[2018-02-13] MEDS: FAMOTIDINE 20 MG TAB PO SCH ×2 (09:17→20:55)
[2018-02-13] MEDS: FINASTERIDE 5 MG TAB PO SCH (09:17)
[2018-02-13] MEDS: MIDODRINE 5 MG TAB PO SCH ×3 (09:17→17:51)
[2018-02-13] MEDS: METOPROLOL TARTRATE 25 MG TAB PO SCH ×2 (09:18→20:55)
[2018-02-13] MEDS: ACETAMINOPHEN TAB 325 MG TAB PO PRN ×2 (09:19→20:53)
[2018-02-13] MEDS: guaiFENesin 600 MG TABLET.ER PO SCH ×2 (09:20→20:54)
[2018-02-13] MEDS: AMIODARONE 200 MG TAB PO SCH (09:21)
[2018-02-13] MEDS: LOSARTAN 25 MG TAB PO SCH (09:21)
[2018-02-13] MEDS: SPIRONOLACTONE 25 MG TAB PO SCH (09:22)
[2018-02-13] MEDS: NICOTINE 21MG/24HR PATCH TRANSDERM SCH (10:28)
[2018-02-13] MEDS: SENNOSIDES-DOCUSATE SODIUM 1 EACH TAB PO SCH ×2 (10:29→20:54)
--- NOTE | 2018-02-13 15:48 | P.PN ---
Subjective Progress Note Date: 02/13/18 this is a 72 years old male with past medical history of hypertension , recent stroke 3 months ago patient of Dr. Metz care of guardian Etelvina last admitted in September for acute gastroenteritis comes in with shortness of breath that has been getting worse for the past few weeks. He denies any nausea or vomiting, lightheadedness or dizziness, no chest pain. chest x-ray done in the ER suggestive of mild CHF, labs were positive for a BNP of 6140 with normal troponin. Initial white is obtainable floor suggestive of a heart rate of 145, blood pressure 94/67 saturated room air 91%. Patient was seen by cardiology who suggested patient has atrial flutter. Will be taken for cardioversion tomorrow. Initiated on Celebrex Patient was initiated on Lasix 80 mg twice a day after a dose of Lasix. 01/27 Patient was noted to have some confusion last night, head CT ordered shows chronic white matter ischemic changes, old watershed infarct, and no acute intracranial changes. Today confusion has improved. Hypotension has improved, blood pressure 105/84 patient underwent TAMIR and cardioversion today. He had successful electrical cardioversion to sinus rhythm, patient noted to have severe cardiomyopathy on TAMIR. TAMIR shows left ventricular cavity is dilated with severe impaired left ventricular systolic function, moderate degree of mitral regurgitation, mild degree of tricuspid regurgitation. Echocardiogram reveals ejection fraction less than 20%, moderate left ventricular hypertrophy, LA is severely dialted, and moderate pericaridal effusion. 01/28 blood pressure on the lower side today. Patient is more confused than yesterday likely secondary to delirium. He does answer questions appropriately once disoriented. Pending for today. Neurology consulted. Patient has significant occlusion of the right common carotid artery external carotid artery and internal carotid artery with retrograde flow in the right vertebral artery representing subclavian steal syndrome. He has seen vascular surgery in the past who has recommended conservative management for the above. Metoprolol dose reduced to 12.5 mg twice daily. Amiodarone initiated at 200 mg daily Lasix held as patient has low blood pressure. Pericardial effusion documented on echocardiogram appears to be chronic secondary to viral infection. 01/29: Patient was seen at bedside he seems to be more confused today, appetite seems to be decreased, sitter at bedside, patient feels weak, unsteady on standing, balance impaired. Physical therapy requested, urine culture and sensitivity requested secondary to delirium, underlying dementia cannot be ruled out, no other neurologic focal deficits noted. Patient does not have any nausea no vomiting, no fever. Vascular has evaluated him, chronic right complete occlusion carotid stenosis no surgery required him and discussed with Dr. Kennedy. Orozco catheter has been placed secondary to urinary retention, postvoid residual over at least 300 mL, Orozco catheter in place patient on Flomax 01/30: Patient was a bit more dyspneic last night, patient required Lasix IV 40 mg last night, with additional 60 mg this morning, nebulized treatments this morning, patient has some bronchospasms, consult to Dr. Nathaly Rogers, CAT scan of the chest was requested, patient was placed on Rocephin for suspected urinary tract infection, cultures are currently pending, patient has increasing O2 requirements from 3 L this can lead to 5 L next cannula overnight, secondary to hypoxemia blood pressure remained stable at 121 systolic however he has low blood pressure around 84 systolic yesterday evening. Solu-Medrol 60 mg started for bronchospasms. 01/31 Patient was seen and evaluated today. He was noted to have large bilateral pleural effusions with multifocal subsegmental atelectasis, extensive bullous emphysematous changes, enlargement of the main pulmonary artery, extensive coronary artery calcifications, small abdominal ascities, right renal atrophy and nodularity of the left adrenal gland, and a small hiatal hernia on his CT scan. Will obtain an ultrasound of the thorax. Patient noted to be hypotensive , last reading 86/51, will treat with Midodrine 10mg TID. Physcial therapy evaluated patient today, he does not require physical assistance, thus does not meet criteria for inpatient rehab. 02/01: Patient was evaluated today, he was noted to be resting in bed with family at bedside. Patient was encouraged to ambulate. Will discontinue Orozco catheter tomorrow. Ultrasound of the thorax revealed moderate bilateral pleural effusions, pulmonology's consult appreciated. Recommends to continue with diuresis, if no response, then possible thoracentesis. Encouraged to use incentive spirometer at the bedside. We'll repeat a chest x-ray tomorrow. 02/02: Patient is seen and followed by Dr. Marin with recommendations to continue Lasix which is 40 mg twice daily. We will change Solu-Medrol over to oral prednisone. Repeat chest x-ray shows small bilateral pleural effusions with minimal bibasilar infiltrates likely compressive atelectasis. Patient is requesting discharge to [facility] for subacute rehab. We have asked for authorization to be obtained as expectation is that [employer] will take at least 24 hours or more to provide authorization. Orozco catheter to be removed. 02/03: Medication reconciliation completed. Patient is ambulating well with PT. He has been able to void since orozco removed. Patient will be discharged to [facility] today in stable condition. All arrangements were completed to discharge patient to [facility] but we are waiting for insurance authorization. Patient denies any new complaints. Breathing status is stable. Patient will be discharged once insurance authorization is completed. 02/04: Insurance authorization for subacute rehab was obtained this morning but patient was found to be in atrial fibrillation with RVR and he was started on amiodarone drip. Patient was previously on oral amiodarone. He has been seen by Dr. Sneed with plan to cardiovert on Wednesday if he remains in atrial fibrillation. Patient's pulse oxing 96% on room air and tolerating well. 02/07: Patient remains in Afib mostly running 90s but up to 120 w activity or anxiety. Cardiology has increased metoprolol. Patient does not wish to undergo cardioversion and wants to be discharged. Patient will be discharged to [facility] in stable condition. Pulse ox 96% on room. 02/08: After patient was prepared for discharge to [facility], patient cut his right wrist with a butter knife. There is a superficial laceration but not needing stitches. Patient apparently passed on that he wanted to . Go through that procedure. Consult was placed with psychiatry and they have recommended the patient have a guardian and also inpatient psychiatric treatment and social work is working on this plan. Also sitter was ordered for bedside. Today, patient denies any concerns. He denies having any chest pain or shortness of breath. His heart rate is running in the low 100s. Pulse ox is 94% on room air. [facility]. Cardiology does not plan for any further intervention. 02/09: Patient has no new complaints. He denies being suicidal. Psychiatry has been following the patient and is now deemed that he does not need a geriatric psych unit. They have cleared him for discharge to [facility]. [facility] is now not accepting the patient. Social work is developing new discharge plan with power of claims attorney. 02/12 Patient has no new complaints. Denies any shortness of breath, chest pain, nausea, vomiting or abdominal pain. Awaiting insurance authorization for patient to be moved to inpatient rehab. We will ask PT to reevaluate the patient for possible discharge home with home care 02/13: Patient has no new complaints. He is able to come out of bed by himself and walk to the bathroom with minimal assist. Family updated on patient's recovery and is not willing to take patient back home as he lives alone. We'll get social work administrator and complex case manager to talk to the family as patient is doing well and may not need inpatient rehab Objective - Vital Signs Vital signs: Vital Signs Temp 97.3 F L 02/13/18 14:46 Pulse 93 02/13/18 14:46 Resp 18 02/13/18 14:46 BP 85/66 02/13/18 14:46 Pulse Ox 99 02/13/18 14:46 Intake & Output 02/12/18 02/13/18 02/13/18 18:59 06:59 18:59 Weight 78.5 kg Other: Voiding Method Toilet Bedside Commode Diaper # Voids 5 3 4 # Bowel Movements 1 - Exam - Exam - Constitutional General appearance: cooperative, no acute distress, obese - EENT Eyes: anicteric sclerae, PERRLA, normal appearance ENT: hearing grossly normal - Neck Neck: no lymphadenopathy, normal ROM, no other, no rigidity, no stridor, no thyromegaly - Respiratory Respiratory: bilateral: CTA with bibasilar crackles present on examination, negative: diminished, dullnes - Cardiovascular Rhythm: regular Heart sounds: normal: S1, S2 Abnormal Heart Sounds: no systolic murmur, no diastolic murmur, no rub, no S3 Gallop, no S4 Gallop, no click, no other - Gastrointestinal General gastrointestinal: normal bowel sounds, soft - Integumentary Integumentary: no rash - Neurologic Neurologic: CNII-XII intact - Musculoskeletal Musculoskeletal: strength equal bilaterally - Psychiatric Psychiatric: A&O x's 3, appropriate affect - Labs CBC & Chem 7: 02/05/18 05:41 02/04/18 11:30 Assessment and Plan Plan: 1 Acute systolic heart failure. Previous echo was normal, there is reduction in ejection fraction in this admission with an EF <20%. TAMIR shows severe cardiomyopathy with moderate pericardial effusion which is likely chronic. Receiving Lasix 40 mg by mouth twice a day. Consult with Dr. Tomas street. Cardiology is following. 2 hypotention likely secondary to dehydration and atrial flutter, blood pressure has improved slightly with fluids. Hydrated and stabilized, Lasix has to be restarted secondary to dyspnea and pleural effusion, CHF metoprolol XL 25 mg daily, Midodrine 10mg TID added. Blood pressure stable. 3 New atrial flutter s/p cardioversion with episode of A. fib with RVR- Patient underwent previous cardioversion to sinus rhythm and Dr. Sneed plans to repeat cardioversion on Wednesday if he remains in atrial fibrillation. Continue amiodarone drip, eliquis 5 mg twice a day. 4 hypertension-continue home medications including metoprolol. 6. 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 Follows with Dr. Kennedy. Patient also follow Dr. Jones who recommended conservative management 10 GI prophylaxis Pepcid 20 mg po twice a day 11 DVT prophylaxis on eliquis 12 code status full code 13. Acute delirium. CT head negative for any acute abnormality. EEG does not show any focal, lateralized, or epileptiform abnormalities. urinalysis obtained 01/29, has some pyuria, urine cultures were sent, IV antibiotics Rocephin started 14 impaired balance, physical therapy and occupational therapies to see the patient, skilled therapies expected, patient does not meet criteria for inpatient, will plan for subacute upon discharge 15 large pericardial effusion, moderate, no plans for surgical intervention patient currently is on diuretics cardiology following closely, pulmonary consulted Dr. Guanaco Rogers, u/s of thorax ordered 16 mild protein calorie malnutrition, patient has diminished appetite, nutritional supplementation and requested 17 acute transaminitis most likely secondary to right-sided heart failure, levels are trending downward 18 acute kidney injury and CKD stage II most likely secondary to postobstructive issues, along with ATN with hypotension,, monitor for post void residual after Orozco catheter would be discontinued, continue to monitor chemistries. Consult with Dr. Marin appreciated. 19 pyuria with BPH and lower urinary tract symptomatology, causing delirium, patient will be started on IV Rocephin, cephalosporins oral on discharge 20 COPD exacerbation, Solu-Medrol changed to oral prednisone for the morning and continue nebulized albuterol Atrovent, 21 abdominal ascites noted on CAT scan, most likely secondary to hypoalbuminemia , however other pathologies are not excluded, IV Lasix, continue to monitor 22 Coronary artery calcifications,/CAD, 23. Suicidal ideation and superficial laceration to the right wrist self- inflicted. Psychiatry eval appreciated. Patient have guardianship and inpatient psychiatric services. Social work is following. Discharge plan: Social work is following to develop new discharge plan.
[2018-02-13] MEDS: ATORVASTATIN 40 MG TAB PO SCH (20:54)
[2018-02-13] MEDS: MONTELUKAST 10 MG TAB PO SCH (20:56)
[2018-02-14] MEDS: ACETAMINOPHEN TAB 325 MG TAB PO PRN ×2 (05:15→16:30)
[2018-02-14] MEDS: IPRATROPIUM-ALBUTEROL 3 ML NEB INHALATION SCH ×4 (07:07→19:02)
[2018-02-14] MEDS: BUDESONIDE 0.5 MG/2 ML NEBU INHALATION SCH ×2 (07:07→19:02)
[2018-02-14] MEDS: SPIRONOLACTONE 25 MG TAB PO SCH (09:43)
[2018-02-14] MEDS: AMIODARONE 200 MG TAB PO SCH (09:44)
[2018-02-14] MEDS: LOSARTAN 25 MG TAB PO SCH (09:44)
[2018-02-14] MEDS: guaiFENesin 600 MG TABLET.ER PO SCH ×2 (09:45→19:51)
[2018-02-14] MEDS: predniSONE 20 MG TAB PO SCH (09:45)
[2018-02-14] MEDS: FUROSEMIDE 20 MG TAB PO SCH ×2 (09:45→16:31)
[2018-02-14] MEDS: FAMOTIDINE 20 MG TAB PO SCH ×2 (09:45→19:51)
[2018-02-14] MEDS: MIDODRINE 5 MG TAB PO SCH ×3 (09:45→16:31)
[2018-02-14] MEDS: SENNOSIDES-DOCUSATE SODIUM 1 EACH TAB PO SCH ×3 (09:45→19:50)
[2018-02-14] MEDS: TAMSULOSIN 0.4 MG CAP.ER.24H PO SCH (09:45)
[2018-02-14] MEDS: APIXABAN 5 MG TAB PO SCH ×2 (09:45→19:51)
[2018-02-14] MEDS: FINASTERIDE 5 MG TAB PO SCH (09:45)
[2018-02-14] MEDS: METOPROLOL TARTRATE 25 MG TAB PO SCH ×2 (09:46→19:51)
[2018-02-14] MEDS: NICOTINE 21MG/24HR PATCH TRANSDERM SCH (09:46)
[2018-02-14 14:07] VITALS: RESP 20
--- NOTE | 2018-02-14 17:19 | P.PN ---
Subjective this is a 72 years old male with past medical history of hypertension , recent stroke 3 months ago patient of Dr. Metz care of guardian Etelvina last admitted in September for acute gastroenteritis comes in with shortness of breath that has been getting worse for the past few weeks. He denies any nausea or vomiting, lightheadedness or dizziness, no chest pain. chest x-ray done in the ER suggestive of mild CHF, labs were positive for a BNP of 6140 with normal troponin. Initial white is obtainable floor suggestive of a heart rate of 145, blood pressure 94/67 saturated room air 91%. Patient was seen by cardiology who suggested patient has atrial flutter. Will be taken for cardioversion tomorrow. Initiated on Celebrex Patient was initiated on Lasix 80 mg twice a day after a dose of Lasix. 01/27 Patient was noted to have some confusion last night, head CT ordered shows chronic white matter ischemic changes, old watershed infarct, and no acute intracranial changes. Today confusion has improved. Hypotension has improved, blood pressure 105/84 patient underwent TAMIR and cardioversion today. He had successful electrical cardioversion to sinus rhythm, patient noted to have severe cardiomyopathy on TAMIR. TAMIR shows left ventricular cavity is dilated with severe impaired left ventricular systolic function, moderate degree of mitral regurgitation, mild degree of tricuspid regurgitation. Echocardiogram reveals ejection fraction less than 20%, moderate left ventricular hypertrophy, LA is severely dialted, and moderate pericaridal effusion. 01/28 blood pressure on the lower side today. Patient is more confused than yesterday likely secondary to delirium. He does answer questions appropriately once disoriented. Pending for today. Neurology consulted. Patient has significant occlusion of the right common carotid artery external carotid artery and internal carotid artery with retrograde flow in the right vertebral artery representing subclavian steal syndrome. He has seen vascular surgery in the past who has recommended conservative management for the above. Metoprolol dose reduced to 12.5 mg twice daily. Amiodarone initiated at 200 mg daily Lasix held as patient has low blood pressure. Pericardial effusion documented on echocardiogram appears to be chronic secondary to viral infection. 01/29: Patient was seen at bedside he seems to be more confused today, appetite seems to be decreased, sitter at bedside, patient feels weak, unsteady on standing, balance impaired. Physical therapy requested, urine culture and sensitivity requested secondary to delirium, underlying dementia cannot be ruled out, no other neurologic focal deficits noted. Patient does not have any nausea no vomiting, no fever. Vascular has evaluated him, chronic right complete occlusion carotid stenosis no surgery required him and discussed with Dr. Kennedy. Orozco catheter has been placed secondary to urinary retention, postvoid residual over at least 300 mL, Orozco catheter in place patient on Flomax 01/30: Patient was a bit more dyspneic last night, patient required Lasix IV 40 mg last night, with additional 60 mg this morning, nebulized treatments this morning, patient has some bronchospasms, consult to Dr. Nathaly Rogers, CAT scan of the chest was requested, patient was placed on Rocephin for suspected urinary tract infection, cultures are currently pending, patient has increasing O2 requirements from 3 L this can lead to 5 L next cannula overnight, secondary to hypoxemia blood pressure remained stable at 121 systolic however he has low blood pressure around 84 systolic yesterday evening. Solu-Medrol 60 mg started for bronchospasms. 01/31 Patient was seen and evaluated today. He was noted to have large bilateral pleural effusions with multifocal subsegmental atelectasis, extensive bullous emphysematous changes, enlargement of the main pulmonary artery, extensive coronary artery calcifications, small abdominal ascities, right renal atrophy and nodularity of the left adrenal gland, and a small hiatal hernia on his CT scan. Will obtain an ultrasound of the thorax. Patient noted to be hypotensive , last reading 86/51, will treat with Midodrine 10mg TID. Physcial therapy evaluated patient today, he does not require physical assistance, thus does not meet criteria for inpatient rehab. 02/01: Patient was evaluated today, he was noted to be resting in bed with family at bedside. Patient was encouraged to ambulate. Will discontinue Orozco catheter tomorrow. Ultrasound of the thorax revealed moderate bilateral pleural effusions, pulmonology's consult appreciated. Recommends to continue with diuresis, if no response, then possible thoracentesis. Encouraged to use incentive spirometer at the bedside. We'll repeat a chest x-ray tomorrow. 02/02: Patient is seen and followed by Dr. Marin with recommendations to continue Lasix which is 40 mg twice daily. We will change Solu-Medrol over to oral prednisone. Repeat chest x-ray shows small bilateral pleural effusions with minimal bibasilar infiltrates likely compressive atelectasis. Patient is requesting discharge to [facility] for subacute rehab. We have asked for authorization to be obtained as expectation is that [employer] will take at least 24 hours or more to provide authorization. Orozco catheter to be removed. 02/03: Medication reconciliation completed. Patient is ambulating well with PT. He has been able to void since orozco removed. Patient will be discharged to [facility] today in stable condition. All arrangements were completed to discharge patient to [facility] but we are waiting for insurance authorization. Patient denies any new complaints. Breathing status is stable. Patient will be discharged once insurance authorization is completed. 02/04: Insurance authorization for subacute rehab was obtained this morning but patient was found to be in atrial fibrillation with RVR and he was started on amiodarone drip. Patient was previously on oral amiodarone. He has been seen by Dr. Sneed with plan to cardiovert on Wednesday if he remains in atrial fibrillation. Patient's pulse oxing 96% on room air and tolerating well. 02/07: Patient remains in Afib mostly running 90s but up to 120 w activity or anxiety. Cardiology has increased metoprolol. Patient does not wish to undergo cardioversion and wants to be discharged. Patient will be discharged to [facility] in stable condition. Pulse ox 96% on room. 02/08: After patient was prepared for discharge to [facility], patient cut his right wrist with a butter knife. There is a superficial laceration but not needing stitches. Patient apparently passed on that he wanted to . Go through that procedure. Consult was placed with psychiatry and they have recommended the patient have a guardian and also inpatient psychiatric treatment and social work is working on this plan. Also sitter was ordered for bedside. Today, patient denies any concerns. He denies having any chest pain or shortness of breath. His heart rate is running in the low 100s. Pulse ox is 94% on room air. Patient will be transferred to the [facility] floor. Cardiology does not plan for any further intervention. 02/09: Patient has no new complaints. He denies being suicidal. Psychiatry has been following the patient and is now deemed that he does not need a geriatric psych unit. They have cleared him for discharge to [facility]. [facility] is now not accepting the patient. Social work is developing new discharge plan with power of automation control integrator. 02/12 Patient has no new complaints. Denies any shortness of breath, chest pain, nausea, vomiting or abdominal pain. Awaiting insurance authorization for patient to be moved to inpatient rehab. We will ask PT to reevaluate the patient for possible discharge home with home care 02/13: Patient has no new complaints. He is able to come out of bed by himself and walk to the bathroom with minimal assist. Family updated on patient's recovery and is not willing to take patient back home as he lives alone. We'll get clinical social work therapist and protective services case worker to talk to the family as patient is doing well and may not need inpatient rehab 02/14 the patient was evaluated today. He has no new complaints. Currently we are waiting for insurance authorization so the patient can go to rehab. Objective - Vital Signs Vital signs: Vital Signs Temp 97.9 F 02/14/18 14:07 Pulse 88 02/14/18 16:27 Resp 20 02/14/18 16:27 BP 116/65 02/14/18 16:27 Pulse Ox 96 02/14/18 16:27 Intake & Output 02/13/18 02/14/18 02/14/18 18:59 06:59 18:59 Weight 78.5 kg 79 kg Other: Voiding Method Toilet Toilet Bedside Commode Bedside Commode Diaper Diaper # Voids 3 4 2 - Exam - Constitutional General appearance: cooperative, no acute distres - EENT Eyes: anicteric sclerae, PERRLA, normal appearance ENT: hearing grossly normal - Neck Neck: no lymphadenopathy, normal ROM, no other, no rigidity, no stridor, no thyromegaly - Respiratory Respiratory: bilateral: CTA with bibasilar crackles present on examination, negative: diminished, dullnes - Cardiovascular Rhythm: regular Heart sounds: normal: S1, S2 Abnormal Heart Sounds: no systolic murmur, no diastolic murmur, no rub, no S3 Gallop, no S4 Gallop, no click, no other - Gastrointestinal General gastrointestinal: normal bowel sounds, soft - Integumentary Integumentary: no rash - Neurologic Neurologic: CNII-XII intact - Musculoskeletal Musculoskeletal: strength equal bilaterally - Psychiatric Psychiatric: A&O x's 3, appropriate affect - Labs CBC & Chem 7: 02/05/18 05:41 02/04/18 11:30 Assessment and Plan Plan: 1 Acute systolic heart failure. Previous echo was normal, there is reduction in ejection fraction in this admission with an EF <20%. TAMIR shows severe cardiomyopathy with moderate pericardial effusion which is likely chronic. Receiving Lasix 40 mg by mouth twice a day. Consult with Dr. Tomas street. Cardiology is following. 2 hypotention likely secondary to dehydration and atrial flutter, blood pressure has improved. Hydrated and stabilized, Lasix has to be restarted secondary to dyspnea and pleural effusion, CHF metoprolol XL 25 mg daily, Midodrine 10mg TID added. Blood pressure stable. 3 New atrial flutter s/p cardioversion with episode of A. fib with RVR- Patient underwent previous cardioversion to sinus rhythm and Dr. Sneed plans to repeat cardioversion on Wednesday if he remains in atrial fibrillation. Continue amiodarone drip, eliquis 5 mg twice a day. 4 hypertension-continue home medications including metoprolol. 6. 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 Follows with Dr. Kennedy. Patient also follow Dr. Jones who recommended conservative management 10 GI prophylaxis Pepcid 20 mg po twice a day 11 DVT prophylaxis on eliquis 12 code status full code 13. Acute delirium. CT head negative for any acute abnormality. EEG does not show any focal, lateralized, or epileptiform abnormalities. urinalysis obtained 01/29, has some pyuria, urine cultures were sent, IV antibiotics Rocephin started 14 impaired balance, physical therapy and occupational therapies to see the patient, skilled therapies expected, patient does not meet criteria for inpatient, will plan for subacute upon discharge 15 large pericardial effusion, moderate, no plans for surgical intervention patient currently is on diuretics cardiology following closely, pulmonary consulted Dr. Guanaco Rogers, u/s of thorax ordered 16 mild protein calorie malnutrition, patient has diminished appetite, nutritional supplementation and requested 17 acute transaminitis most likely secondary to right-sided heart failure, levels are trending downward 18 acute kidney injury and CKD stage II most likely secondary to postobstructive issues, along with ATN with hypotension,, monitor for post void residual after Orozco catheter would be discontinued, continue to monitor chemistries. Consult with Dr. Marin appreciated. 19 pyuria with BPH and lower urinary tract symptomatology, causing delirium, patient will be started on IV Rocephin, cephalosporins oral on discharge 20 COPD exacerbation, Solu-Medrol changed to oral prednisone for the morning and continue nebulized albuterol Atrovent, 21 abdominal ascites noted on CAT scan, most likely secondary to hypoalbuminemia , however other pathologies are not excluded, IV Lasix, continue to monitor 22 Coronary artery calcifications/CAD 23. Suicidal ideation and superficial laceration to the right wrist self- inflicted. Psychiatry eval appreciated. Patient have guardianship and inpatient psychiatric services. Social work is following. Discharge plan: Social work is following to develop new discharge plan. The above impression and plan of care have been discussed and directed by signing physician. Jocelyne Khan nurse practitioner acting as scribe for signing physician.
[2018-02-14] MEDS: ATORVASTATIN 40 MG TAB PO SCH (19:51)
[2018-02-14] MEDS: MONTELUKAST 10 MG TAB PO SCH (19:52)
[2018-02-15] MEDS: ACETAMINOPHEN TAB 325 MG TAB PO PRN (03:19)
[2018-02-15 06:59] VITALS: BP 87/58; PULSE 78; TEMP 97.8
[2018-02-15] MEDS: BUDESONIDE 0.5 MG/2 ML NEBU INHALATION SCH (07:15)
[2018-02-15] MEDS: IPRATROPIUM-ALBUTEROL 3 ML NEB INHALATION SCH ×2 (07:15→11:08)
[2018-02-15] MEDS: SENNOSIDES-DOCUSATE SODIUM 1 EACH TAB PO SCH (08:05)
[2018-02-15] MEDS: guaiFENesin 600 MG TABLET.ER PO SCH (08:06)
[2018-02-15] MEDS: SPIRONOLACTONE 25 MG TAB PO SCH (08:06)
[2018-02-15] MEDS: METOPROLOL TARTRATE 25 MG TAB PO SCH (08:06)
[2018-02-15] MEDS: MIDODRINE 5 MG TAB PO SCH ×2 (08:06→13:22)
[2018-02-15] MEDS: LOSARTAN 25 MG TAB PO SCH (08:06)
[2018-02-15] MEDS: AMIODARONE 200 MG TAB PO SCH (08:06)
[2018-02-15] MEDS: FUROSEMIDE 20 MG TAB PO SCH (08:06)
[2018-02-15] MEDS: FINASTERIDE 5 MG TAB PO SCH (08:06)
[2018-02-15] MEDS: TAMSULOSIN 0.4 MG CAP.ER.24H PO SCH (08:06)
[2018-02-15] MEDS: FAMOTIDINE 20 MG TAB PO SCH (08:06)
[2018-02-15] MEDS: APIXABAN 5 MG TAB PO SCH (08:06)
[2018-02-15] MEDS: predniSONE 20 MG TAB PO SCH (08:06)
[2018-02-15] MEDS: NICOTINE 21MG/24HR PATCH TRANSDERM SCH (08:15)
--- NOTE | 2018-02-15 15:33 | P.DS ---
Providers Date of admission: 01/26/18 11:34 Expected date of discharge: 02/15/18 Attending physician: Aki Moura MD Consults: 01/25/18 14:45 Consult Physician Routine Consulting Provider: Abel Rogers Consult Reason/Comments: heart failure Do you want consulting provider notified?: Yes 01/27/18 15:08 Consult Physician Routine Consulting Provider: Michelle Hay Consult Reason/Comments: mental status change Do you want consulting provider notified?: Already Contacted 01/28/18 15:41 Consult Physician Stat Consulting Provider: Kevin Kennedy Consult Reason/Comments: critical carotid us. Do you want consulting provider notified?: Yes 01/29/18 19:47 Consult Physician Routine Consulting Provider: Manjeet Coronel Consult Reason/Comments: inpatient rehab, debility Do you want consulting provider notified?: Yes, Notify in am 01/30/18 09:38 Consult Physician Routine Consulting Provider: Tom Rogers Consult Reason/Comments: dyspnea effusion, hypoxemia Do you want consulting provider notified?: Yes 01/31/18 15:05 Consult Physician Stat Consulting Provider: Radha Marin Consult Reason/Comments: diuresis Do you want consulting provider notified?: Yes 02/07/18 10:24 Consult Physician Routine Consulting Provider: Shanda Navarrete Consult Reason/Comments: suicidal ideation Do you want consulting provider notified?: Yes Primary care physician: Alexei Metz [facility] Course: this is a 72 years old male with past medical history of hypertension , recent stroke 3 months ago patient of Dr. Metz care of [facility] last admitted in September for acute gastroenteritis comes in with shortness of breath that has been getting worse for the past few weeks. He denies any nausea or vomiting, lightheadedness or dizziness, no chest pain. chest x-ray done in the ER suggestive of mild CHF, labs were positive for a BNP of 6140 with normal troponin. Initial white is obtainable floor suggestive of a heart rate of 145, blood pressure 94/67 saturated room air 91%. Patient was seen by cardiology who suggested patient has atrial flutter. Will be taken for cardioversion tomorrow. Initiated on Celebrex Patient was initiated on Lasix 80 mg twice a day after a dose of Lasix. 01/27 Patient was noted to have some confusion last night, head CT ordered shows chronic white matter ischemic changes, old watershed infarct, and no acute intracranial changes. Today confusion has improved. Hypotension has improved, blood pressure 105/84 patient underwent TAMIR and cardioversion today. He had successful electrical cardioversion to sinus rhythm, patient noted to have severe cardiomyopathy on TAMIR. TAMIR shows left ventricular cavity is dilated with severe impaired left ventricular systolic function, moderate degree of mitral regurgitation, mild degree of tricuspid regurgitation. Echocardiogram reveals ejection fraction less than 20%, moderate left ventricular hypertrophy, LA is severely dialted, and moderate pericaridal effusion. 01/28 blood pressure on the lower side today. Patient is more confused than yesterday likely secondary to delirium. He does answer questions appropriately once disoriented. Pending for today. Neurology consulted. Patient has significant occlusion of the right common carotid artery external carotid artery and internal carotid artery with retrograde flow in the right vertebral artery representing subclavian steal syndrome. He has seen vascular surgery in the past who has recommended conservative management for the above. Metoprolol dose reduced to 12.5 mg twice daily. Amiodarone initiated at 200 mg daily Lasix held as patient has low blood pressure. Pericardial effusion documented on echocardiogram appears to be chronic secondary to viral infection. 01/29: Patient was seen at bedside he seems to be more confused today, appetite seems to be decreased, sitter at bedside, patient feels weak, unsteady on standing, balance impaired. Physical therapy requested, urine culture and sensitivity requested secondary to delirium, underlying dementia cannot be ruled out, no other neurologic focal deficits noted. Patient does not have any nausea no vomiting, no fever. Vascular has evaluated him, chronic right complete occlusion carotid stenosis no surgery required him and discussed with Dr. Kennedy. Orozco catheter has been placed secondary to urinary retention, postvoid residual over at least 300 mL, Orozco catheter in place patient on Flomax 01/30: Patient was a bit more dyspneic last night, patient required Lasix IV 40 mg last night, with additional 60 mg this morning, nebulized treatments this morning, patient has some bronchospasms, consult to Dr. Nathaly Rogers, CAT scan of the chest was requested, patient was placed on Rocephin for suspected urinary tract infection, cultures are currently pending, patient has increasing O2 requirements from 3 L this can lead to 5 L next cannula overnight, secondary to hypoxemia blood pressure remained stable at 121 systolic however he has low blood pressure around 84 systolic yesterday evening. Solu-Medrol 60 mg started for bronchospasms. 01/31 Patient was seen and evaluated today. He was noted to have large bilateral pleural effusions with multifocal subsegmental atelectasis, extensive bullous emphysematous changes, enlargement of the main pulmonary artery, extensive coronary artery calcifications, small abdominal ascities, right renal atrophy and nodularity of the left adrenal gland, and a small hiatal hernia on his CT scan. Will obtain an ultrasound of the thorax. Patient noted to be hypotensive , last reading 86/51, will treat with Midodrine 10mg TID. Physcial therapy evaluated patient today, he does not require physical assistance, thus does not meet criteria for inpatient rehab. 02/01: Patient was evaluated today, he was noted to be resting in bed with family at bedside. Patient was encouraged to ambulate. Will discontinue Orozco catheter tomorrow. Ultrasound of the thorax revealed moderate bilateral pleural effusions, pulmonology's consult appreciated. Recommends to continue with diuresis, if no response, then possible thoracentesis. Encouraged to use incentive spirometer at the bedside. We'll repeat a chest x-ray tomorrow. 02/02: Patient is seen and followed by Dr. Marin with recommendations to continue Lasix which is 40 mg twice daily. We will change Solu-Medrol over to oral prednisone. Repeat chest x-ray shows small bilateral pleural effusions with minimal bibasilar infiltrates likely compressive atelectasis. Patient is requesting discharge to [facility] for subacute rehab. We have asked for authorization to be obtained as expectation is that [employer] will take at least 24 hours or more to provide authorization. Orozoc catheter to be removed. 02/03: Medication reconciliation completed. Patient is ambulating well with PT. He has been able to void since orozco removed. Patient will be discharged to [facility] today in stable condition. All arrangements were completed to discharge patient to [facility] but we are waiting for insurance authorization. Patient denies any new complaints. Breathing status is stable. Patient will be discharged once insurance authorization is completed. 02/04: Insurance authorization for subacute rehab was obtained this morning but patient was found to be in atrial fibrillation with RVR and he was started on amiodarone drip. Patient was previously on oral amiodarone. He has been seen by Dr. Sneed with plan to cardiovert on Wednesday if he remains in atrial fibrillation. Patient's pulse oxing 96% on room air and tolerating well. 02/07: Patient remains in Afib mostly running 90s but up to 120 w activity or anxiety. Cardiology has increased metoprolol. Patient does not wish to undergo cardioversion and wants to be discharged. Patient will be discharged to [facility] in stable condition. Pulse ox 96% on room. 02/08: After patient was prepared for discharge to [facility], patient cut his right wrist with a butter knife. There is a superficial laceration but not needing stitches. Patient apparently passed on that he wanted to . Go through that procedure. Consult was placed with psychiatry and they have recommended the patient have a guardian and also inpatient psychiatric treatment and social work is working on this plan. Also sitter was ordered for bedside. Today, patient denies any concerns. He denies having any chest pain or shortness of breath. His heart rate is running in the low 100s. Pulse ox is 94% on room air. Patient will be transferred to the [facility] floor. Cardiology does not plan for any further intervention. 02/09: Patient has no new complaints. He denies being suicidal. Psychiatry has been following the patient and is now deemed that he does not need a geriatric psych unit. They have cleared him for discharge to [facility]. [facility] is now not accepting the patient. Social work is developing new discharge plan with power of securities attorney. 02/12 Patient has no new complaints. Denies any shortness of breath, chest pain , nausea, vomiting or abdominal pain. Awaiting insurance authorization for patient to be moved to inpatient rehab. We will ask PT to reevaluate the patient for possible discharge home with home care 02/13: Patient has no new complaints. He is able to come out of bed by himself and walk to the bathroom with minimal assist. Family updated on patient's recovery and is not willing to take patient back home as he lives alone. We'll get social worker aide and field case manager to talk to the family as patient is doing well and may not need inpatient rehab 02/14 the patient was evaluated today. He has no new complaints. Currently we are waiting for insurance authorization so the patient can go to rehab. 02/15: Patient was evaluated today, he was sitting up in bed with family present. He has no new complaints, he is doing well, patient did not meet the requirements for inpatient rehab he'll be discharged home with home care. Discharge diagnoses 1 Acute systolic heart failure. 2 hypotention likely secondary to dehydration and atrial flutter 3 New atrial flutter s/p cardioversion with episode of A. fib with RVR 4 hypertension 6. 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 13. Acute delirium. 14 impaired balance, 15 large pericardial effusion 16 mild protein calorie malnutrition 17 acute transaminitis most likely secondary to right-sided heart failure 18 acute kidney injury and CKD stage II 19 pyuria with BPH and lower urinary tract symptomatology 20 COPD exacerbation 22 Coronary artery calcifications/CAD 23. Suicidal ideation and superficial laceration to the right wrist self- inflicted. The above impression and plan of care have been discussed and directed by signing physician. Jocelyne Khan nurse practitioner acting as scribe for signing physician. Patient Condition at Discharge: Good Plan - Discharge Summary Discharge Rx Participant: Yes New Discharge Prescriptions: New traMADol HCL [Ultram] 50 mg PO Q6HR PRN #20 tab PRN Reason: Pain ALPRAZolam [Xanax] 0.25 mg PO BID PRN tab PRN Reason: Anxiety ALPRAZolam [Xanax] 0.25 mg PO BID PRN #14 tab PRN Reason: Anxiety traMADol HCL [Ultram] 50 mg PO Q6HR PRN #28 tab PRN Reason: Pain Control Amiodarone HCl [Pacerone] 200 mg PO DAILY #30 tab Apixaban [Eliquis] 5 mg PO BID #60 tablet Furosemide [Lasix] 20 mg PO BID #60 tab guaiFENesin [Mucinex] 1,200 mg PO BID #30 tab.er.12h Losartan [Cozaar] 12.5 mg PO DAILY #30 tab Metoprolol Tartrate 25 mg PO BID #60 tab Midodrine HCl [ProAmatine] 10 mg PO TID #90 tablet Sennosides-Docusate Sodium [Senokot-S] 1 tab PO BID #60 tablet Spironolactone [Aldactone] 12.5 mg PO DAILY #30 tablet Continue Finasteride [Proscar] 5 mg PO DAILY Aspirin 81 mg PO HS Montelukast Sodium [Singulair] 10 mg PO HS Tamsulosin [Flomax] 0.4 mg PO DAILY Atorvastatin Calcium [Lipitor] 40 mg PO HS Changed tiZANidine HCL 2 mg PO BID PRN #0 PRN Reason: muscle spasms Discontinued [place] 160 mg PO HS Albuterol Nebulized [Ventolin Nebulized] 2.5 mg INHALATION Q6H PRN PRN Reason: Shortness Of Breath Discharge Medication List Finasteride [Proscar] 5 mg PO DAILY 04/09/17 [History] Aspirin 81 mg PO HS 01/25/18 [History] Atorvastatin Calcium [Lipitor] 40 mg PO HS 01/25/18 [History] Montelukast Sodium [Singulair] 10 mg PO HS 01/25/18 [History] Tamsulosin [Flomax] 0.4 mg PO DAILY 01/25/18 [History] tiZANidine HCL 2 mg PO BID PRN #0 02/03/18 [Rx] traMADol HCL [Ultram] 50 mg PO Q6HR PRN #20 tab 02/13/18 [Rx] ALPRAZolam [Xanax] 0.25 mg PO BID PRN tab 02/14/18 [Rx] ALPRAZolam [Xanax] 0.25 mg PO BID PRN #14 tab 02/14/18 [Rx] traMADol HCL [Ultram] 50 mg PO Q6HR PRN #28 tab 02/14/18 [Rx] Amiodarone HCl [Pacerone] 200 mg PO DAILY #30 tab 02/15/18 [Rx] Apixaban [Eliquis] 5 mg PO BID #60 tablet 02/15/18 [Rx] Furosemide [Lasix] 20 mg PO BID #60 tab 02/15/18 [Rx] Losartan [Cozaar] 12.5 mg PO DAILY #30 tab 02/15/18 [Rx] Metoprolol Tartrate 25 mg PO BID #60 tab 02/15/18 [Rx] Midodrine HCl [ProAmatine] 10 mg PO TID #90 tablet 02/15/18 [Rx] Sennosides-Docusate Sodium [Senokot-S] 1 tab PO BID #60 tablet 02/15/18 [Rx] Spironolactone [Aldactone] 12.5 mg PO DAILY #30 tablet 02/15/18 [Rx] guaiFENesin [Mucinex] 1,200 mg PO BID #30 tab.er.12h 02/15/18 [Rx] Follow up Appointment(s)/Referral(s): Pedro Sneed MD [STAFF PHYSICIAN] - 03/08/18 (Rowan from office will call you with appointment time. ) [facility], [NON-STAFF] - Alexei Metz MD [Primary Care Provider] - 02/22/18 (Dr Metz not in next week. You will see Dr Wilson. The office will call you with appointment time. ) Tom Rogers MD [STAFF PHYSICIAN] - 02/18/18 9:15 am (Appointment with Dr Parsons. ) Patient Instructions/Handouts: Heart Failure (DC), A-fib (Atrial Fibrillation) (DC), How to Stop Smoking (DC), Pleural Effusion (DC) Activity/Diet/Wound Care/Special Instructions: Cardiac diet. (low fat, low salt) Activity as tolerated, fall precautions. NO smoking, cessation information provided. Discharge Disposition: HOME WITH HOME HEALTH SERVICES
== END 2018-02-15 13:46 | disposition home health service (06) | DRG 291 ==
LOC: EC 12:35 → 6SEL 14:44 → OBSVTOIN 01-26 11:34 → 4MS4W 02-08 13:50
PROVIDERS: ADMIT Internal Medicine; ATTEND Internal Medicine
PROC: 5A2204Z Restoration of Cardiac Rhythm, Single (ICD-10-PCS; principal; 2018-01-27 10:00)
PROC: B245ZZ4 Ultrasonography of Left Heart, Transesophageal (ICD-10-PCS; principal; 2018-01-27 10:00)
DX: I13.0 Hypertensive heart and chronic kidney disease with heart failure and stage 1 through stage 4 chronic kidney disease, or unspecified chronic kidney disease (principal); I50.23 Acute on chronic systolic (congestive) heart failure; I31.4 Cardiac tamponade; N17.0 Acute kidney failure with tubular necrosis; G93.41 Metabolic encephalopathy; R18.8 Other ascites; I95.9 Hypotension, unspecified; I48.3 Typical atrial flutter; I48.2 Chronic atrial fibrillation; I08.1 Rheumatic disorders of both mitral and tricuspid valves; E44.1 Mild protein-calorie malnutrition; F33.9 Major depressive disorder, recurrent, unspecified; N39.0 Urinary tract infection, site not specified; J44.1 Chronic obstructive pulmonary disease with (acute) exacerbation; E86.0 Dehydration; I65.21 Occlusion and stenosis of right carotid artery; F17.200 Nicotine dependence, unspecified, uncomplicated; B95.2 Enterococcus as the cause of diseases classified elsewhere; I25.5 Ischemic cardiomyopathy; R41.0 Disorientation, unspecified; R09.02 Hypoxemia; J98.01 Acute bronchospasm; H55.00 Unspecified nystagmus; N18.2 Chronic kidney disease, stage 2 (mild); R00.0 Tachycardia, unspecified; K44.9 Diaphragmatic hernia without obstruction or gangrene; R33.8 Other retention of urine; N40.1 Benign prostatic hyperplasia with lower urinary tract symptoms; I25.10 Atherosclerotic heart disease of native coronary artery without angina pectoris; S61.511A Laceration without foreign body of right wrist, initial encounter; X78.1XXA Intentional self-harm by knife, initial encounter; I73.9 Peripheral vascular disease, unspecified; F41.9 Anxiety disorder, unspecified; Z82.41 Family history of sudden cardiac death; Z86.73 Personal history of transient ischemic attack (TIA), and cerebral infarction without residual deficits; Z79.82 Long term (current) use of aspirin; Z79.899 Other long term (current) drug therapy; Z79.01 Long term (current) use of anticoagulants; Z91.030 Bee allergy status; Z82.49 Family history of ischemic heart disease and other diseases of the circulatory system
CPT/HCPCS: 36415; 70450; 71046; 71250; 76604; 80048; 80053; 80061; 80076; 81001; 83735; 83880; 84443; 84484; 85025; 85610; 85730; 87077; 87086; 87186; 92960; 93005; 93306; 93312; 93320; 93325; 93880; 94640; 94667; 94760; 95819; 99285

== ENCOUNTER 2018-02-16 12:51 | Inpatient (IN) | payer MEDICARE ==
--- NOTE | 2018-02-16 13:30 | ED ---
General Adult HPI - General Chief complaint: Recheck/Abnormal Lab/Rx Stated complaint: hypotension Time Seen by Provider: 02/16/18 13:00 Source: patient, RN notes reviewed Mode of arrival: EMS Limitations: no limitations - History of Present Illness Initial comments: This is a 73-year-old male who presents emergency Department with no caregiver or family member with him. Patient states she was sent in because his blood pressure was low. Patient states she has had no complaints. Patient states he has no chest pain or palpitations. Patient denies any difficulty breathing or shortness of breath. Patient denies any recent fever chills or cough. Patient denies any abdominal pain patient denies nausea vomiting diarrhea. Patient denies any headache patient denies numbness weakness. Patient denies being lightheaded dizzy or having any near syncopal episodes. She denies any dysuria hematuria urinary frequency. - Related Data Home Medications Medication Instructions Recorded Confirmed Finasteride [Proscar] 5 mg PO DAILY 04/09/17 02/16/18 Aspirin 81 mg PO HS 01/25/18 02/16/18 Atorvastatin Calcium [Lipitor] 40 mg PO HS 01/25/18 02/16/18 Montelukast Sodium [Singulair] 10 mg PO HS 01/25/18 02/16/18 Tamsulosin [Flomax] 0.4 mg PO DAILY 01/25/18 02/16/18 Previous Rx's Medication Instructions Recorded tiZANidine HCL 2 mg PO BID PRN #0 02/03/18 traMADol HCL [Ultram] 50 mg PO Q6HR PRN #20 tab 02/13/18 ALPRAZolam [Xanax] 0.25 mg PO BID PRN #14 tab 02/14/18 Amiodarone HCl [Pacerone] 200 mg PO DAILY #30 tab 02/15/18 Apixaban [Eliquis] 5 mg PO BID #60 tablet 02/15/18 Furosemide [Lasix] 20 mg PO BID #60 tab 02/15/18 Losartan [Cozaar] 12.5 mg PO DAILY #30 tab 02/15/18 Metoprolol Tartrate 25 mg PO BID #60 tab 02/15/18 Midodrine HCl [ProAmatine] 10 mg PO TID #90 tablet 02/15/18 Sennosides-Docusate Sodium 1 tab PO BID #60 tablet 02/15/18 [Senokot-S] Spironolactone [Aldactone] 12.5 mg PO DAILY #30 tablet 02/15/18 guaiFENesin [Mucinex] 1,200 mg PO BID #30 tab.er.12h 02/15/18 Allergies Allergy/AdvReac Type Severity Reaction Status Date / Time venom-honey bee Allergy Anaphylaxis Verified 02/16/18 13:39 Review of Systems ROS Statement: Those systems with pertinent positive or pertinent negative responses have been documented in the HPI. ROS Other: All systems not noted in ROS Statement are negative. Past Medical History Past Medical History: COPD, CVA/TIA, Hypertension History of Any Multi-Drug Resistant Organisms: None Reported Past Surgical History: Back Surgery Additional Past Surgical History / Comment(s): carotid endardectomy Past Psychological History: No Psychological Hx Reported Smoking Status: Current every day smoker Past Alcohol Use History: None Reported Past Drug Use History: None Reported - Past Family History Father Additional Family Medical History / Comment(s): father at the age of 70, sudden unclear etiology Mother Additional Family Medical History / Comment(s): mother of oral age. Patient has no siblings General Exam - General Exam Comments Initial Comments: GENERAL: Patient is well-developed and well-nourished. Patient is nontoxic and well- hydrated and is in no acute distress. ENT: Neck is soft and supple. No significant lymphadenopathy is noted. Oropharynx is clear. Moist mucous membranes. Neck has full range of motion without eliciting any pain. EYES: The sclera were anicteric and conjunctiva were pink and moist. Extraocular movements were intact and pupils were equal round and reactive to light. Eyelids were unremarkable. PULMONARY: Unlabored respirations. Good breath sounds bilaterally. No audible rales rhonchi or wheezing was noted. CARDIOVASCULAR: Patient has an irregular heartbeat at about 100 beats a minute ABDOMEN: Soft and nontender with normal bowel sounds. No palpable organomegaly was noted. There is no palpable pulsatile mass. SKIN: Skin is clear with no lesions or rashes and otherwise unremarkable. NEUROLOGIC: Patient is alert and oriented 2. Cranial nerves II through XII are grossly intact. Motor and sensory are also intact. Normal speech, volume and content. Symmetrical smile. MUSCULOSKELETAL: Normal extremities with adequate strength and full range of motion. No lower extremity swelling or edema. No calf tenderness. LYMPHATICS: No significant lymphadenopathy is noted PSYCHIATRIC: Normal psychiatric evaluation. Normal interpersonal interactions appears functionally intact in deals appropriately with others. No signs of depression. No signs of anxiety. Limitations: no limitations Course Vital Signs 02/16/18 02/16/18 02/16/18 13:03 13:43 13:55 Temperature 97 F L 97.1 F L Pulse Rate 105 H 96 Respiratory 16 16 Rate Blood Pressure 112/78 104/55 Blood Pressure 81/46 [Right Arm Sitting] Blood Pressure 83/55 [Right Arm Standing] Blood Pressure 104/55 [Right Arm Supine] O2 Sat by Pulse 100 97 Oximetry 02/16/18 02/16/18 14:48 15:20 Temperature Pulse Rate 110 H Respiratory 16 Rate Blood Pressure 132/85 Blood Pressure 84/64 [Right Arm Sitting] Blood Pressure [Right Arm Standing] Blood Pressure 105/75 [Right Arm Supine] O2 Sat by Pulse 98 Oximetry Medical Decision Making - Medical Decision Making EKG shows atrial fibrillation at 100 bpm QRS is under 10 QT interval 364 QTC is 469. Patient's EKG shows no ST segment elevation or depression he does have T- wave abnormalities are seen on previous EKG however. Patient is positive for orthostatics after a liter of fluid I did not want him any more fluid because of his CHF history. I spoke with Dr. Moura which she agreed to admit the patient admitted the patient and wrote admitting orders. - Lab Data Result diagrams: 02/16/18 13:10 02/16/18 13:10 Lab Results 02/16/18 02/16/18 02/16/18 Range/Units 13:10 13:10 13:10 WBC 9.6 (3.8-10.6) k/uL RBC 5.39 (4.30-5.90) m/uL Hgb 14.8 (13.0-17.5) gm/dL Hct 44.8 (39.0-53.0) % MCV 83.1 (80.0-100.0) fL MCH 27.4 (25.0-35.0) pg MCHC 33.0 (31.0-37.0) g/dL RDW 16.3 H (11.5-15.5) % Plt Count (150-450) k/uL Neutrophils % 82 % Lymphocytes % 3 % Monocytes % 11 % Eosinophils % 1 % Basophils % 0 % Neutrophils # 7.9 H (1.3-7.7) k/uL Lymphocytes # 0.3 L (1.0-4.8) k/uL Monocytes # 1.1 H (0-1.0) k/uL Eosinophils # 0.1 (0-0.7) k/uL Basophils # 0.0 (0-0.2) k/uL Hypochromasia Slight Poikilocytosis (manual Present Anisocytosis Slight Target Cells Present Sodium 131 L (137-145) mmol/L Potassium 3.9 (3.5-5.1) mmol/L Chloride 93 L (98-107) mmol/L Carbon Dioxide 26 (22-30) mmol/L Anion Gap 12 mmol/L BUN 26 H (9-20) mg/dL Creatinine 1.09 (0.66-1.25) mg/dL Est GFR (CKD-EPI)AfAm 78 (>60 ml/min/1.73 sqM) Est GFR (CKD-EPI)NonAf 67 (>60 ml/min/1.73 sqM) Glucose 89 (74-99) mg/dL Calcium 8.9 (8.4-10.2) mg/dL Total Bilirubin 0.7 (0.2-1.3) mg/dL AST 24 (17-59) U/L ALT 60 (21-72) U/L Alkaline Phosphatase 59 (38-126) U/L Troponin I (0.000-0.034) ng/mL NT-Pro-B Natriuret Pep 4040 pg/mL Total Protein 6.4 (6.3-8.2) g/dL Albumin 3.9 (3.5-5.0) g/dL Urine Color Urine Appearance (Clear) Urine pH (5.0-8.0) Ur Specific [place] (1.001-1.035) Urine Protein (Negative) Urine Glucose (UA) (Negative) Urine Ketones (Negative) Urine Blood (Negative) Urine Nitrite (Negative) Urine Bilirubin (Negative) Urine Urobilinogen (<2.0) mg/dL Ur Leukocyte Esterase (Negative) 02/16/18 02/16/18 Range/Units 13:10 13:10 WBC (3.8-10.6) k/uL RBC (4.30-5.90) m/uL Hgb (13.0-17.5) gm/dL Hct (39.0-53.0) % MCV (80.0-100.0) fL MCH (25.0-35.0) pg MCHC (31.0-37.0) g/dL RDW (11.5-15.5) % Plt Count (150-450) k/uL Neutrophils % % Lymphocytes % % Monocytes % % Eosinophils % % Basophils % % Neutrophils # (1.3-7.7) k/uL Lymphocytes # (1.0-4.8) k/uL Monocytes # (0-1.0) k/uL Eosinophils # (0-0.7) k/uL Basophils # (0-0.2) k/uL Hypochromasia Poikilocytosis (manual Anisocytosis Target Cells Sodium (137-145) mmol/L Potassium (3.5-5.1) mmol/L Chloride (98-107) mmol/L Carbon Dioxide (22-30) mmol/L Anion Gap mmol/L BUN (9-20) mg/dL Creatinine (0.66-1.25) mg/dL Est GFR (CKD-EPI)AfAm (>60 ml/min/1.73 sqM) Est GFR (CKD-EPI)NonAf (>60 ml/min/1.73 sqM) Glucose (74-99) mg/dL Calcium (8.4-10.2) mg/dL Total Bilirubin (0.2-1.3) mg/dL AST (17-59) U/L ALT (21-72) U/L Alkaline Phosphatase (38-126) U/L Troponin I 0.020 (0.000-0.034) ng/mL NT-Pro-B Natriuret Pep pg/mL Total Protein (6.3-8.2) g/dL Albumin (3.5-5.0) g/dL Urine Color Light Yellow Urine Appearance Clear (Clear) Urine pH 6.5 (5.0-8.0) Ur Specific [place] 1.007 (1.001-1.035) Urine Protein Negative (Negative) Urine Glucose (UA) Negative (Negative) Urine Ketones Negative (Negative) Urine Blood Negative (Negative) Urine Nitrite Negative (Negative) Urine Bilirubin Negative (Negative) Urine Urobilinogen <2.0 (<2.0) mg/dL Ur Leukocyte Esterase Negative (Negative) Disposition Clinical Impression: Orthostatic hypotension Disposition: ADMITTED IP TO THIS HOSP Referrals: Alexei Metz MD [Primary Care Provider] - 1-2 days Time of Disposition: 15:43
[2018-02-16 13:50] LABS: Appearance,Urine Clear (Clear); Bilirubin,Urine Negative (Negative); Blood,Urine Negative (Negative); Color,Urine Light Yellow; Glucose,Urine (UA) Negative (Negative); Ketones,Urine Negative (Negative); Leukocyte Esterase,Urine Negative (Negative); Nitrite,Urine Negative (Negative); PH, Urine 6.5 (5.0-8.0); Protein,Urine Negative (Negative); Specific Gravity,Urine 1.007 (1.001-1.035); Urobilinogen,Urine <2.0 mg/dL (<2.0)
[2018-02-16] MEDS ORDERED: SODIUM CHLORIDE 0.9% 1,000 ML IV ONE (13:58)
[2018-02-16 14:00] LABS: Albumin 3.9 g/dL (3.5-5.0); Calcium 8.9 mg/dL (8.4-10.2); Potassium 3.9 mmol/L (3.5-5.1); Total Bilirubin 0.7 mg/dL (0.2-1.3); Total Protein 6.4 g/dL (6.3-8.2)
[2018-02-16 14:01] LABS: Anisocytosis Slight; Basophils % (A) 0 %; Eosinophils # (A) 0.1 k/uL (0-0.7); Eosinophils % (A) 1 %; HCT 44.8 % (39.0-53.0); HGB 14.8 gm/dL (13.0-17.5); Hypochromasia Slight; Lymphocytes # (A) 0.3 k/uL (1.0-4.8); Lymphocytes % (A) 3 %; MCH 27.4 pg (25.0-35.0); MCV 83.1 fL (80.0-100.0); Mean Platelet Volume 12.5; Monocytes # (A) 1.1 k/uL (0-1.0); Monocytes % (A) 11 %; Neutrophils # (A) 7.9 k/uL (1.3-7.7); Neutrophils % (A) 82 %; RBC 5.39 m/uL (4.30-5.90); RDW 16.3 % (11.5-15.5); WBC 9.6 k/uL (3.8-10.6)
[2018-02-16 14:30] LABS: Poikilocytosis (M) Present; Target Cells Present
--- NOTE | 2018-02-16 15:08 | XR ---
EXAMINATION TYPE: XR chest 2V DATE OF EXAM: 02/16/2018 COMPARISON: February 06, 2018 HISTORY: Shortness of breath TECHNIQUE: Frontal and lateral views of the chest are obtained. FINDINGS: Scattered senescent parenchymal changes noted. Hyperinflation compatible with COPD. No evidence for infiltrate. No evidence for atelectasis. Heart size is stable. Mediastinal structures are stable and grossly unremarkable. No evidence for hilar prominence. Degenerative changes dorsal spine. Large calcification adjacent coracoid. IMPRESSION: 1. No evidence for acute pulmonary disease.
[2018-02-16] MEDS ORDERED: NITROGLYCERIN SL TABS 0.4 MG TAB SUBLINGUAL PRN (16:15)
[2018-02-16] MEDS ORDERED: SODIUM CHLORIDE 0.9% 1,000 ML IV SCH (16:30)
[2018-02-16] MEDS: traMADol 50 MG TAB PO PRN (17:45)
[2018-02-16] MEDS: MIDODRINE 5 MG TAB PO SCH (18:34)
[2018-02-16 20:04] LABS: Troponin I 0.024 ng/mL (0.000-0.034)
[2018-02-16 20:11] LABS: Creatine Kinase MB 2.5 ng/mL (0.0-2.4)
[2018-02-16] MEDS: guaiFENesin 600 MG TABLET.ER PO SCH (21:50)
[2018-02-16] MEDS: ATORVASTATIN 40 MG TAB PO SCH (21:50)
[2018-02-16] MEDS: APIXABAN 5 MG TAB PO SCH (21:50)
[2018-02-16] MEDS: SENNOSIDES-DOCUSATE SODIUM 1 EACH TAB PO SCH (21:50)
[2018-02-16] MEDS: MONTELUKAST 10 MG TAB PO SCH (21:50)
[2018-02-17] MEDS: traMADol 50 MG TAB PO PRN ×3 (00:13→17:02)
[2018-02-17] MEDS: METOPROLOL TARTRATE 25 MG TAB PO SCH ×3 (00:21→20:51)
[2018-02-17 01:52] LABS: Creatine Kinase MB 1.8 ng/mL (0.0-2.4)
[2018-02-17 02:08] LABS: Troponin I 0.026 ng/mL (0.000-0.034)
[2018-02-17] MEDS: MIDODRINE 5 MG TAB PO SCH ×3 (06:22→17:02)
[2018-02-17] MEDS: AMIODARONE 200 MG TAB PO SCH (07:58)
[2018-02-17] MEDS: SPIRONOLACTONE 25 MG TAB PO SCH (07:59)
[2018-02-17] MEDS: FINASTERIDE 5 MG TAB PO SCH (07:59)
[2018-02-17] MEDS: TAMSULOSIN 0.4 MG CAP.ER.24H PO SCH (07:59)
[2018-02-17] MEDS: ASPIRIN 325 MG TAB PO SCH (07:59)
[2018-02-17] MEDS: guaiFENesin 600 MG TABLET.ER PO SCH ×2 (07:59→20:55)
[2018-02-17] MEDS: APIXABAN 5 MG TAB PO SCH ×2 (07:59→20:58)
[2018-02-17] MEDS: SENNOSIDES-DOCUSATE SODIUM 1 EACH TAB PO SCH ×2 (07:59→20:49)
[2018-02-17] MEDS: LOSARTAN 25 MG TAB PO SCH (08:02)
[2018-02-17 09:54] LABS: Cholesterol 126 mg/dL (<200); HDL Cholesterol 57 mg/dL (40-60); LDL Cholesterol,Calculated 54 mg/dL (0-99); Triglycerides 76 mg/dL (<150)
[2018-02-17] MEDS ORDERED: SODIUM CHLORIDE 0.9% 500 ML IV ONE (14:08)
--- NOTE | 2018-02-17 14:23 | P.HPIM ---
History of Present Illness H&P Date: 02/17/18 this is a 72 years old male with past medical history of hypertension , recent stroke 3 months ago patient of Dr. Metz care of guardian Etelvina just discharge 2 days ago, comes in with low blood pressure when checked by the visiting nurse. BP was undetectable on standing and patient was complaining of dizziness. In the previous admission patient was treated for acute CHF, atrial flutter s/p unsuccessful cardioversion and was managed on medical therapy. Patient underwent TAMIR and cardioversion on 01/28 had successful electrical cardioversion to sinus rhythm with left ventricular cavity dilated with severe impaired left ventricular systolic function, moderate degree of mitral regurgitation, mild degree of tricuspid regurgitation. Echocardiogram reveals ejection fraction less than 20%, moderate left ventricular hypertrophy, LA is severely dialted, and moderate pericaridal effusion. 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 He has seen vascular surgery in the past who has recommended conservative management for the above. Pericardial effusion documented on echocardiogram appears to be chronic secondary to viral infection. Patient was also noted to e hypotensive for which midodrine was iniitiated. On evaluation today, patient was hypotensive at rest. He received 1 L of normal saline in the ER. BNP is elevated more than 4000 but is less than the previous BNP drawn in the last admission. Patient was orthostatic positive on blood pressure readings drawn today. The endorses dizziness but denies any chest pain or shortness of breath. Patient was not discharged on Lasix due to low blood pressure. Patient will be admitted for orthostatic hypotension likely secondary to overdiuresis. Review of Systems Constitutional: Denies chills, Denies fever, Denies lethargy, Denies malaise, Denies poor appetite, Denies weakness, Denies weight loss Eyes: denies decreased vision, denies diplopia, denies discharge, denies pain Ears: deny: decreased hearing Ears, nose, mouth and throat: Denies dental pain, Denies headache, Denies nasal discharge, Denies nose pain Cardiovascular: Denies chest pain, Denies decreased exercise tolerance, Denies edema, Denies high blood pressure, Denies irregular heart beat, Denies palpitations, Denies paroxysmal nocturnal dyspnea, Denies rapid heart beat, Denies shortness of breath Respiratory: Denies congestion, Denies cough, Denies cough with sputum, Denies dyspnea, Denies home oxygen, Denies wheezing Gastrointestinal: Denies abdominal pain, Denies change in bowel habits, Denies coffee ground emesis, Denies early satiety, Denies excessive gas, Denies heartburn, Denies hematemesis, Denies hematochezia, Denies loss of appetite, Denies nausea, Denies vomiting Genitourinary: Denies dysuria, Denies flank pain, Denies kidney stones, Denies menorrhagia, Denies urgency, Denies urinary frequency Musculoskeletal: Denies gait dysfunction, Denies limitation of motion, Denies morning stiffness, Denies muscle cramps Integumentary: Denies rash, Denies wounds, Denies brittle nails, Denies change in hair/nails, Denies darkening of skin Neurological: Denies balance difficulties, Denies change in speech, Denies double vision, Denies gait dysfunction, Denies loss of vision, Denies motor disturbance, Denies numbness, Denies paralysis, Denies paresthesias, Denies seizures endorses dizziness Psychiatric: Denies anxiety, Denies depression Endocrine: Denies excessive sweating, Denies excessive thirst, Denies high blood sugars, Denies palpitations Hematologic/Lymphatic: Denies easy bruising, Denies lymphadenopathy Past Medical History Past Medical History: Atrial Flutter, Heart Failure, COPD, CVA/TIA, Hearing Disorder / Deafness, Hypertension, Prostate Disorder History of Any Multi-Drug Resistant Organisms: None Reported Past Surgical History: Back Surgery Additional Past Surgical History / Comment(s): carotid endardectomy Past Anesthesia/Blood Transfusion Reactions: No Reported Reaction Past Psychological History: No Psychological Hx Reported Smoking Status: Current every day smoker Past Alcohol Use History: None Reported Past Drug Use History: None Reported - Past Family History Father Additional Family Medical History / Comment(s): father at the age of 70, sudden unclear etiology Mother Additional Family Medical History / Comment(s): mother of old age. Patient has no siblings patient has a power of professional nursing tutor who does not live with him. Medications and Allergies Home Medications Medication Instructions Recorded Confirmed Type Finasteride [Proscar] 5 mg PO DAILY 04/09/17 02/16/18 History Aspirin 81 mg PO HS 01/25/18 02/16/18 History Atorvastatin Calcium [Lipitor] 40 mg PO HS 01/25/18 02/16/18 History Montelukast Sodium [Singulair] 10 mg PO HS 01/25/18 02/16/18 History Tamsulosin [Flomax] 0.4 mg PO DAILY 01/25/18 02/16/18 History tiZANidine HCL 2 mg PO BID PRN #0 02/03/18 02/16/18 Rx traMADol HCL [Ultram] 50 mg PO Q6HR PRN #20 tab 02/13/18 02/16/18 Rx ALPRAZolam [Xanax] 0.25 mg PO BID PRN #14 tab 02/14/18 02/16/18 Rx Amiodarone HCl [Pacerone] 200 mg PO DAILY #30 tab 02/15/18 02/16/18 Rx Apixaban [Eliquis] 5 mg PO BID #60 tablet 02/15/18 02/16/18 Rx Furosemide [Lasix] 20 mg PO BID #60 tab 02/15/18 02/16/18 Rx Losartan [Cozaar] 12.5 mg PO DAILY #30 tab 02/15/18 02/16/18 Rx Metoprolol Tartrate 25 mg PO BID #60 tab 02/15/18 02/16/18 Rx Midodrine HCl [ProAmatine] 10 mg PO TID #90 tablet 02/15/18 02/16/18 Rx Sennosides-Docusate Sodium 1 tab PO BID #60 tablet 02/15/18 02/16/18 Rx [Senokot-S] Spironolactone [Aldactone] 12.5 mg PO DAILY #30 tablet 02/15/18 02/16/18 Rx guaiFENesin [Mucinex] 1,200 mg PO BID #30 tab.er.12h 02/15/18 02/16/18 Rx Allergies Allergy/AdvReac Type Severity Reaction Status Date / Time venom-honey bee Allergy Anaphylaxis Verified 02/16/18 13:39 Physical Exam Vitals: Vital Signs Temp Pulse Pulse Resp BP BP BP 02/17/18 12:34 91/57 02/17/18 10:00 76/56 81/51 02/17/18 08:06 96.8 F L 114 H 16 02/17/18 07:07 16 02/17/18 06:24 86 97/75 02/17/18 06:23 114 H 98/67 02/17/18 00:20 92 90/53 02/16/18 23:00 97.3 F L 74 17 79/47 02/16/18 20:35 106 H 86/40 02/16/18 20:30 103 H 20 83/38 02/16/18 17:28 110 H 16 169/91 02/16/18 15:20 84/64 02/16/18 14:48 110 H 16 132/85 BP Pulse Ox 02/17/18 12:34 02/17/18 10:00 73/56 02/17/18 08:06 98/56 95 02/17/18 07:07 02/17/18 06:24 105/64 02/17/18 06:23 02/17/18 00:20 02/16/18 23:00 99 02/16/18 20:35 02/16/18 20:30 95 02/16/18 17:28 02/16/18 15:20 105/75 02/16/18 14:48 98 Intake and Output 02/16/18 02/17/18 02/17/18 22:59 06:59 14:59 Other: Voiding Method Toilet Toilet Urinal # Voids 1 2 - Constitutional General appearance: cooperative, no acute distress, obese - EENT Eyes: anicteric sclerae, PERRLA, normal appearance ENT: hearing grossly normal - Neck Neck: no lymphadenopathy, normal ROM, no other, no rigidity, no stridor, no thyromegaly - Respiratory Respiratory: bilateral: CTA, negative: diminished, dullness, rales, rhonchi - Cardiovascular Rhythm: Irregularly irregular Heart sounds: normal: S1, S2 Abnormal Heart Sounds: no systolic murmur, no diastolic murmur, no rub, no S3 Gallop, no S4 Gallop, no click, no other - Gastrointestinal General gastrointestinal: normal bowel sounds, soft - Integumentary Integumentary: no rash - Neurologic Neurologic: CNII-XII intact - Musculoskeletal Musculoskeletal: gait normal, strength equal bilaterally - Psychiatric Psychiatric: A&O x's 3, appropriate affect Results CBC & Chem 7: 02/16/18 13:10 02/16/18 13:10 Labs: Abnormal Lab Results - Last 24 Hours (Table) 02/16/18 02/16/18 02/16/18 Range/Units 13:10 13:10 19:13 RDW 16.3 H (11.5-15.5) % Neutrophils # 7.9 H (1.3-7.7) k/uL Lymphocytes # 0.3 L (1.0-4.8) k/uL Monocytes # 1.1 H (0-1.0) k/uL Sodium 131 L (137-145) mmol/L Chloride 93 L (98-107) mmol/L BUN 26 H (9-20) mg/dL Total Creatine Kinase 40 L (55-170) U/L CK-MB (CK-2) 2.5 H* (0.0-2.4) ng/mL 02/17/18 Range/Units 01:09 RDW (11.5-15.5) % Neutrophils # (1.3-7.7) k/uL Lymphocytes # (1.0-4.8) k/uL Monocytes # (0-1.0) k/uL Sodium (137-145) mmol/L Chloride (98-107) mmol/L BUN (9-20) mg/dL Total Creatine Kinase 46 L (55-170) U/L CK-MB (CK-2) (0.0-2.4) ng/mL Thrombosis Risk Factor Assmnt - DVT/VTE Prophylaxis DVT/VTE Prophylaxis: Pharmacologic Prophylaxis ordered - Choose All That Apply Each Risk Factor Represents 2 Points: Age 61-74 years Thrombosis Risk Factor Assessment Total Risk Factor Score: 2 Thrombosis Risk Factor Assessment Level: Low Risk Assessment and Plan Plan: 1 Systolic heart failure. Previous echo was normal, there is reduction in ejection fraction in this admission with an EF <20%. TAMIR shows severe cardiomyopathy with moderate pericardial effusion which is likely chronic. Was discharged in 20 mg of Lasix twice a day. Hold Lasix due to concern for overdiuresis. Cardiology is following. Continue spironolactone, metoprolol and losartan 2 hypotention likely secondary to dehydration and atrial flutter status post 1 L IV fluid in the ER. Give 500 bolus now, Midodrine 10mg bid with fludrocortisone 3 New atrial flutter s/p cardioversion with episode of A. fib with RVR- Patient underwent previous cardioversion to sinus rhythm 0n 01/[address] Sneed planned to repeat cardioversion but patient refused Continue amiodarone 200 mg po daily , eliquis 5 mg twice a day. 4 hypertension-continue home medications including metoprolol. 6. 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 Follows with Dr. Kennedy. Patient also follow Dr. Jones who recommended conservative management 11 Pericardial effusion, moderate, no plans for surgical intervention 12 mild protein calorie malnutrition, patient has diminished appetite, nutritional supplementation are requested 13 CKD stage II, stable 14 BPH on flomax and finesteride 15 Coronary artery calcifications/CAD 16 GI prophylaxis Pepcid 20 mg po twice a day 17 DVT prophylaxis on eliquis 18 code status no code
[2018-02-17] MEDS: MONTELUKAST 10 MG TAB PO SCH (20:55)
[2018-02-17] MEDS: ATORVASTATIN 40 MG TAB PO SCH (20:57)
[2018-02-18] MEDS: MIDODRINE 5 MG TAB PO SCH ×3 (06:13→18:14)
[2018-02-18] MEDS: LOSARTAN 25 MG TAB PO SCH (07:13)
[2018-02-18] MEDS: METOPROLOL TARTRATE 25 MG TAB PO SCH ×2 (07:14→20:43)
[2018-02-18] MEDS: AMIODARONE 200 MG TAB PO SCH ×2 (07:52→09:08)
[2018-02-18] MEDS: TAMSULOSIN 0.4 MG CAP.ER.24H PO SCH (07:57)
[2018-02-18] MEDS: APIXABAN 5 MG TAB PO SCH ×2 (07:57→20:34)
[2018-02-18] MEDS: ASPIRIN 325 MG TAB PO SCH (07:57)
[2018-02-18] MEDS: SENNOSIDES-DOCUSATE SODIUM 1 EACH TAB PO SCH ×2 (07:57→20:44)
[2018-02-18] MEDS: FINASTERIDE 5 MG TAB PO SCH (07:57)
[2018-02-18] MEDS: guaiFENesin 600 MG TABLET.ER PO SCH ×2 (07:57→20:34)
[2018-02-18] MEDS: SPIRONOLACTONE 25 MG TAB PO SCH (07:58)
[2018-02-18] MEDS ORDERED: SODIUM CHLORIDE 0.9% 500 ML IV ONE (11:05)
[2018-02-18 12:04] LABS: Calcium 9.1 mg/dL (8.4-10.2); Potassium 4.7 mmol/L (3.5-5.1)
--- NOTE | 2018-02-18 14:26 | P.PN ---
Subjective Progress Note Date: 02/18/18 this is a 72 years old male with past medical history of hypertension , recent stroke 3 months ago patient of Dr. Metz care of guardian Etelvina just discharge 2 days ago, comes in with low blood pressure when checked by the visiting nurse. BP was undetectable on standing and patient was complaining of dizziness. In the previous admission patient was treated for acute CHF, atrial flutter s/p unsuccessful cardioversion and was managed on medical therapy. Patient underwent TAMIR and cardioversion on 01/28 had successful electrical cardioversion to sinus rhythm with left ventricular cavity dilated with severe impaired left ventricular systolic function, moderate degree of mitral regurgitation, mild degree of tricuspid regurgitation. Echocardiogram reveals ejection fraction less than 20%, moderate left ventricular hypertrophy, LA is severely dialted, and moderate pericaridal effusion. 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 He has seen vascular surgery in the past who has recommended conservative management for the above. Pericardial effusion documented on echocardiogram appears to be chronic secondary to viral infection. Patient was also noted to e hypotensive for which midodrine was iniitiated. On evaluation today, patient was hypotensive at rest. He received 1 L of normal saline in the ER. BNP is elevated more than 4000 but is less than the previous BNP drawn in the last admission. Patient was orthostatic positive on blood pressure readings drawn today. The endorses dizziness but denies any chest pain or shortness of breath. Patient was not discharged on Lasix due to low blood pressure. Patient will be admitted for orthostatic hypotension likely secondary to overdiuresis. 02/18: Patient has no new complaints today. His blood pressure continues to be on the low side with systolic running 70-100. Cardiology consult remains pending. Patient has been taken off losartan and Aldactone and metoprolol will be decreased to 12.5 mg twice daily. Orthostatics are positive. He does complain of dizziness when he stands. Patient will be given a bolus of 500 mL. Social work is met with the patient's POA and can she do longer wants responsibility of being decision maker and is requesting public guardian. Social work provided her with a list of adult foster care homes. Anticipate discharge on Wednesday to either [facility] outside of the area or adult foster care. Objective - Vital Signs Vital signs: Vital Signs Temp 97.8 F 02/17/18 22:22 Pulse 83 02/18/18 06:08 Resp 17 02/18/18 06:07 BP 105/79 02/18/18 07:54 Pulse Ox 95 02/18/18 06:07 Intake & Output 02/17/18 02/18/18 02/18/18 18:59 06:59 18:59 Weight 86.183 kg Other: Voiding Method Toilet Toilet # Voids 1 3 - Exam Constitutional General appearance: cooperative, no acute distress, obese - EENT Eyes: anicteric sclerae, PERRLA, normal appearance ENT: hearing grossly normal - Neck Neck: no lymphadenopathy, normal ROM, no other, no rigidity, no stridor, no thyromegaly - Respiratory Respiratory: bilateral: CTA, negative: diminished, dullness, rales, rhonchi - Cardiovascular Rhythm: Irregularly irregular Heart sounds: normal: S1, S2 Abnormal Heart Sounds: no systolic murmur, no diastolic murmur, no rub, no S3 Gallop, no S4 Gallop, no click, no other - Gastrointestinal General gastrointestinal: normal bowel sounds, soft - Integumentary Integumentary: no rash - Neurologic Neurologic: CNII-XII intact - Musculoskeletal Musculoskeletal: gait normal, strength equal bilaterally - Psychiatric Psychiatric: A&O x's 3, appropriate affect - Labs CBC & Chem 7: 02/16/18 13:10 02/18/18 11:26 Assessment and Plan Plan: 1. Chronic systolic heart failure. Previous echo was normal, there is reduction in ejection fraction in this admission with an EF <20%. TAMIR shows severe cardiomyopathy with moderate pericardial effusion which is likely chronic. Was discharged in 20 mg of Lasix twice a day. Hold Lasix due to concern for overdiuresis. Cardiology is following. Spironolactone and losartan will be discontinued and metoprolol decreased 12.5 mg twice daily. Fluid bolus will be given. 2 hypotention likely secondary to dehydration and atrial flutter status post 1 L IV fluid in the ER. Give 500 bolus now, Midodrine 10mg bid with fludrocortisone. Spironolactone, losartan discontinued and metoprolol decreased to 12.5 mg twice daily. 3 New atrial flutter s/p cardioversion with episode of A. fib with RVR- Patient underwent previous cardioversion to sinus rhythm 0n 01/[address] Sneed planned to repeat cardioversion but patient refused Continue amiodarone 200 mg po daily , eliquis 5 mg twice a day. 4. Hypertension, currently hypotensive. 6. 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 Follows with Dr. Kennedy. Patient also follow Dr. Jones who recommended conservative management 11 Pericardial effusion, moderate, no plans for surgical intervention 12 mild protein calorie malnutrition, patient has diminished appetite, nutritional supplementation are requested 13 CKD stage II, stable 14 BPH on flomax and finesteride 15 Coronary artery calcifications/CAD 16 GI prophylaxis Pepcid 20 mg po twice a day 17 DVT prophylaxis on eliquis 18 code status no code Discharge plan: Extended care facility or AFC on Wednesday Impression and plan of care have been directed as dictated by the signing physician. Etelvina Gallegos nurse practitioner acting as scribe for signing physician.
--- NOTE | 2018-02-18 15:09 | P.CRDCN ---
History of Present Illness Consult date: 02/18/18 History of present illness: Mr. Allen is a pleasant 73-year-old male past medical history significant for chronic persistent atrial flutter status post failed cardioversion, systolic heart failure, COPD, hypertension, CVA and chronic tobacco abuse. He was recently admitted last week and at that time he underwent cardioversion which was unsuccessful and he was started on amiodarone. He presented back to the hospital secondary to hypotension. He denies symptoms of chest pain, shortness of breath, dizziness, palpitations, nausea, vomiting or diaphoresis. Orthostatic blood pressures has follow supine 105/79, sitting 70/57, standing 86/61. He does become acutely dizzy with position change. Midodrine has been added he has received 2 doses thus far and he seems to feel somewhat better. EKG on arrival reveals atrial fibrillation with complete left bundle branch block with controlled ventricular response. Nonspecific ST and T-wave abnormality. Chest x-ray is negative for acute cardiopulmonary process. Laboratory data reviewed, hemoglobin 14.8, sodium 134, potassium 4.7, cardiac enzymes negative 3. Current cardiac medications include Aldactone 12.5 mg daily, midodrine 10 mg 3 times a day, metoprolol 25 mg daily, losartan 12.5 mg daily, Lasix 20 mg twice a day, atorvastatin 40 mg daily, aspirin 81 mg daily, Eliquis 5 mg twice a day and amiodarone 200 mg daily. He underwent TAMIR earlier this month which revealed global hypokinesia and ejection fraction of less than 30%. Review of Systems At the time of my exam: CONSTITUTIONAL: Denies fever. Denies chills. EYES: Denies blurred vision. Denies vision changes. Denies eye pain. EARS, NOSE, MOUTH & THROAT: Denies headache. Denies sore throat. Denies ear pain. CARDIOVASCULAR: Denies chest pain. Denies shortness of breath. Denies orthopnea. Denies PND. Denies palpitations. RESPIRATORY: Denies cough. GASTROINTESTINAL: Denies abdominal pain. Denies diarrhea. Denies constipation. Denies nausea. Denies vomiting. MUSCULOSKELETAL: Denies myalgias. INTEGUMENTARY: Denies pruitis. Denies rash. NEUROLOGIC: Denies numbness. Denies tingling. Denies weakness. PSYCHIATRIC: Denies anxiety. Denies depression. ENDOCRINE: Denies fatigue. Denies weight change. Denies polydipsia. Denies polyurina. GENITOURINARY: Denies burning, hematuria or urgency with micturation. HEMATOLOGIC: Denies history of anemia. Denies bleeding. Past Medical History Past Medical History: Atrial Flutter, Heart Failure, COPD, CVA/TIA, Hearing Disorder / Deafness, Hypertension, Prostate Disorder History of Any Multi-Drug Resistant Organisms: None Reported Past Surgical History: Back Surgery Additional Past Surgical History / Comment(s): carotid endardectomy Past Anesthesia/Blood Transfusion Reactions: No Reported Reaction Past Psychological History: No Psychological Hx Reported Smoking Status: Current every day smoker Past Alcohol Use History: None Reported Past Drug Use History: None Reported - Past Family History Father Additional Family Medical History / Comment(s): father at the age of 70, sudden unclear etiology Mother Additional Family Medical History / Comment(s): mother of old age. Patient has no siblings patient has a power of tax associate attorney who does not live with him. Medications and Allergies Home Medications Medication Instructions Recorded Confirmed Type Finasteride [Proscar] 5 mg PO DAILY 04/09/17 02/16/18 History Aspirin 81 mg PO HS 01/25/18 02/16/18 History Atorvastatin Calcium [Lipitor] 40 mg PO HS 01/25/18 02/16/18 History Montelukast Sodium [Singulair] 10 mg PO HS 01/25/18 02/16/18 History Tamsulosin [Flomax] 0.4 mg PO DAILY 01/25/18 02/16/18 History tiZANidine HCL 2 mg PO BID PRN #0 02/03/18 02/16/18 Rx traMADol HCL [Ultram] 50 mg PO Q6HR PRN #20 tab 02/13/18 02/16/18 Rx ALPRAZolam [Xanax] 0.25 mg PO BID PRN #14 tab 02/14/18 02/16/18 Rx Amiodarone HCl [Pacerone] 200 mg PO DAILY #30 tab 02/15/18 02/16/18 Rx Apixaban [Eliquis] 5 mg PO BID #60 tablet 02/15/18 02/16/18 Rx Furosemide [Lasix] 20 mg PO BID #60 tab 02/15/18 02/16/18 Rx Losartan [Cozaar] 12.5 mg PO DAILY #30 tab 02/15/18 02/16/18 Rx Metoprolol Tartrate 25 mg PO BID #60 tab 02/15/18 02/16/18 Rx Midodrine HCl [ProAmatine] 10 mg PO TID #90 tablet 02/15/18 02/16/18 Rx Sennosides-Docusate Sodium 1 tab PO BID #60 tablet 02/15/18 02/16/18 Rx [Senokot-S] Spironolactone [Aldactone] 12.5 mg PO DAILY #30 tablet 02/15/18 02/16/18 Rx guaiFENesin [Mucinex] 1,200 mg PO BID #30 tab.er.12h 02/15/18 02/16/18 Rx Allergies Allergy/AdvReac Type Severity Reaction Status Date / Time venom-honey bee Allergy Anaphylaxis Verified 02/16/18 13:39 Physical Exam Vitals: Vital Signs Temp Pulse Pulse Pulse Resp BP BP 02/18/18 07:54 105/79 02/18/18 06:08 83 78/57 02/18/18 06:07 94 17 100/61 02/17/18 22:22 97.8 F 97 19 102/68 02/17/18 20:52 86/65 02/17/18 20:51 88 20 87/67 02/17/18 19:29 95 02/17/18 16:00 18 02/17/18 14:57 97.6 F 73 18 84/67 02/17/18 12:34 91/57 02/17/18 10:00 76/56 BP BP Pulse Ox 02/18/18 07:54 02/18/18 06:08 86/61 02/18/18 06:07 95 02/17/18 22:22 97 02/17/18 20:52 78/54 02/17/18 20:51 98 02/17/18 19:29 02/17/18 16:00 02/17/18 14:57 96 02/17/18 12:34 02/17/18 10:00 81/51 73/56 Intake and Output 02/17/18 02/18/18 02/18/18 22:59 06:59 14:59 Other: Voiding Method Toilet # Voids 1 3 GENERAL: This is a 73-year-old occasion male in no apparent distress at the time of my examination. HEENT: Head is atraumatic, normocephalic. Pupils are equal, round. Sclerae anicteric. Conjunctivae are clear. Mucous membranes of the mouth are moist. Neck is supple. There is no jugular venous distention. No carotid bruit is heard. LUNGS: Bibasilar rales and coarse rhonchi throughout. No wheezes. No chest wall tenderness is noted on palpation or with deep breathing. HEART: Irregular rate and rhythm without murmurs, rubs or gallops. S1 and S2 heard. ABDOMEN: Soft, nontender. Bowel sounds are heard. No organomegaly noted. EXTREMITIES: No evidence of peripheral edema and no calf tenderness noted. VASCULAR: Radial and dorsalis pedis pulses palpated, no evidence of clubbing. NEUROLOGIC: Patient is awake, alert and oriented x3. Results 02/16/18 13:10 02/18/18 11:26 Lipids 02/17/18 Range/Units 09:11 Triglycerides 76 (<150) mg/dL Cholesterol 126 (<200) mg/dL HDL Cholesterol 57 (40-60) mg/dL Current Medications Generic Name Dose Route Start Last Admin Trade Name Freq PRN Reason Stop Dose Admin Alprazolam 0.25 mg 02/16/18 17:33 Xanax PO BID PRN Anxiety Amiodarone HCl 200 mg 02/17/18 09:00 02/18/18 07:52 Cordarone PO Not Given DAILY LAURA Apixaban 5 mg 02/16/18 21:00 02/18/18 07:57 Eliquis PO 5 mg BID LAURA Administration Aspirin 325 mg 02/17/18 09:00 02/18/18 07:57 Aspirin PO 325 mg DAILY LAURA Administration Atorvastatin Calcium 40 mg 02/16/18 21:00 02/17/18 20:57 Lipitor PO 40 mg HS LAURA Administration Finasteride 5 mg 02/17/18 09:00 02/18/18 07:57 Proscar PO 5 mg DAILY LAURA Administration Guaifenesin 1,200 mg 02/16/18 21:00 02/18/18 07:57 Mucinex PO 1,200 mg BID LAURA Administration Losartan Potassium 12.5 mg 02/17/18 09:00 02/18/18 07:13 Cozaar PO Not Given DAILY LAURA Metoprolol Tartrate 25 mg 02/16/18 21:00 02/18/18 07:14 Lopressor PO Not Given BID LAURA Midodrine 10 mg 02/16/18 18:00 02/18/18 06:13 Proamatine PO 10 mg TID@0600,1200,1800 LAURA Administration Montelukast Sodium 10 mg 02/16/18 21:00 02/17/18 20:55 Singulair PO 10 mg HS LAURA Administration Nitroglycerin 0.4 mg 02/16/18 16:15 Nitrostat SUBLINGUAL Q5M PRN Chest Pain Senna/Docusate Sodium 1 each 02/16/18 21:00 02/18/18 07:57 Senokot-S PO 1 each BID LAURA Administration Spironolactone 12.5 mg 02/17/18 09:00 02/18/18 07:58 Aldactone PO 12.5 mg DAILY LAURA Administration Tamsulosin HCl 0.4 mg 02/17/18 09:00 02/18/18 07:57 Flomax PO 0.4 mg DAILY LAURA Administration Tramadol HCl 50 mg 02/16/18 17:33 02/17/18 17:02 Ultram PO 50 mg Q6HR PRN Administration Pain Intake and Output 02/17/18 02/18/18 02/18/18 22:59 06:59 14:59 Other: Voiding Method Toilet # Voids 1 3 02/16/18 13:10 02/16/18 13:10 Assessment and Plan Assessment: ASSESSMENT 1. Paroxysmal atrial flutter/fibrillation status post failed cardioversion 2. Orthostatic hypotension 3. Chronic systolic congestive heart failure 4. COPD 5. History of hypertension 6. Chronic tobacco abuse PLAN Check an cardioversion was recommended on last admission but the patient refused. He will be continued on amiodarone. As well as anticoagulation. Agree with Midodrine. May resume Lasix at a small dose as well as Aldactone secondary to systolic heart failure. Recommend increasing activity and getting patient up in the chair more so than laying in bed. This has been communicated to his nurse today. Thank you kindly for this consultation. Further recommendations to follow. Nurse Practitioner note has been reviewed, I agree with a documented findings and plan of care. Patient was seen and examined.
[2018-02-18] MEDS: FUROSEMIDE 20 MG TAB PO SCH (16:18)
[2018-02-18] MEDS: MONTELUKAST 10 MG TAB PO SCH (20:33)
[2018-02-18] MEDS: ATORVASTATIN 40 MG TAB PO SCH (20:34)
[2018-02-18] MEDS: traMADol 50 MG TAB PO PRN (20:34)
[2018-02-19] MEDS: traMADol 50 MG TAB PO PRN ×2 (04:15→19:54)
[2018-02-19] MEDS: MIDODRINE 5 MG TAB PO SCH ×3 (06:34→16:49)
[2018-02-19] MEDS: guaiFENesin 600 MG TABLET.ER PO SCH ×2 (07:45→19:54)
[2018-02-19] MEDS: TAMSULOSIN 0.4 MG CAP.ER.24H PO SCH (07:45)
[2018-02-19] MEDS: FUROSEMIDE 20 MG TAB PO SCH ×2 (07:46→14:20)
[2018-02-19] MEDS: AMIODARONE 200 MG TAB PO SCH (07:46)
[2018-02-19] MEDS: APIXABAN 5 MG TAB PO SCH ×2 (07:46→19:54)
[2018-02-19] MEDS: ASPIRIN 325 MG TAB PO SCH (07:46)
[2018-02-19] MEDS: METOPROLOL TARTRATE 25 MG TAB PO SCH ×2 (07:46→19:53)
[2018-02-19] MEDS: SENNOSIDES-DOCUSATE SODIUM 1 EACH TAB PO SCH ×2 (07:46→19:54)
[2018-02-19] MEDS: SPIRONOLACTONE 25 MG TAB PO SCH (07:46)
[2018-02-19] MEDS: FINASTERIDE 5 MG TAB PO SCH (07:46)
[2018-02-19 07:53] LABS: Anisocytosis Slight; Basophils # (A) 0.1 k/uL (0-0.2); Basophils % (A) 1 %; Eosinophils # (A) 0.2 k/uL (0-0.7); Eosinophils % (A) 2 %; HCT 41.4 % (39.0-53.0); Hypochromasia Moderate; Lymphocytes # (A) 1.1 k/uL (1.0-4.8); Lymphocytes % (A) 15 %; MCH 26.7 pg (25.0-35.0); MCHC 31.3 g/dL (31.0-37.0); MCV 85.4 fL (80.0-100.0); Mean Platelet Volume 8.2; Monocytes # (A) 0.4 k/uL (0-1.0); Monocytes % (A) 5 %; Neutrophils # (A) 5.9 k/uL (1.3-7.7); Neutrophils % (A) 77 %; Platelet Count 164 k/uL (150-450); RBC 4.85 m/uL (4.30-5.90); RDW 16.7 % (11.5-15.5); WBC 7.6 k/uL (3.8-10.6)
[2018-02-19 08:07] LABS: Calcium 8.9 mg/dL (8.4-10.2); Potassium 4.5 mmol/L (3.5-5.1)
[2018-02-19] MEDS: ALPRAZolam 0.25 MG TAB PO PRN (14:20)
--- NOTE | 2018-02-19 14:21 | P.PN ---
Subjective Progress Note Date: 02/19/18 this is a 72 years old male with past medical history of hypertension , recent stroke 3 months ago patient of Dr. Metz care of guardian Etelvina just discharge 2 days ago, comes in with low blood pressure when checked by the visiting nurse. BP was undetectable on standing and patient was complaining of dizziness. In the previous admission patient was treated for acute CHF, atrial flutter s/p unsuccessful cardioversion and was managed on medical therapy. Patient underwent TAMIR and cardioversion on 01/28 had successful electrical cardioversion to sinus rhythm with left ventricular cavity dilated with severe impaired left ventricular systolic function, moderate degree of mitral regurgitation, mild degree of tricuspid regurgitation. Echocardiogram reveals ejection fraction less than 20%, moderate left ventricular hypertrophy, LA is severely dialted, and moderate pericaridal effusion. 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 He has seen vascular surgery in the past who has recommended conservative management for the above. Pericardial effusion documented on echocardiogram appears to be chronic secondary to viral infection. Patient was also noted to e hypotensive for which midodrine was iniitiated. On evaluation today, patient was hypotensive at rest. He received 1 L of normal saline in the ER. BNP is elevated more than 4000 but is less than the previous BNP drawn in the last admission. Patient was orthostatic positive on blood pressure readings drawn today. The endorses dizziness but denies any chest pain or shortness of breath. Patient was not discharged on Lasix due to low blood pressure. Patient will be admitted for orthostatic hypotension likely secondary to overdiuresis. 02/18: Patient has no new complaints today. His blood pressure continues to be on the low side with systolic running 70-100. Cardiology consult remains pending. Patient has been taken off losartan and Aldactone and metoprolol will be decreased to 12.5 mg twice daily. Orthostatics are positive. He does complain of dizziness when he stands. Patient will be given a bolus of 500 mL. Social work is met with the patient's POA and can she do longer wants responsibility of being decision maker and is requesting public guardian. Social work provided her with a list of adult foster care homes. Anticipate discharge on Wednesday to either [facility] outside of the area or adult foster care. 02/19: Patient is sitting up in bed in no apparent distress, he denies any chest pain, shortness of breath, he is less dizzy, he has no new complaints, awaiting for disposition hopefully on Wednesday. Objective - Vital Signs Vital signs: Vital Signs Temp 96.8 F L 02/19/18 07:00 Pulse 72 02/19/18 07:00 Resp 20 02/19/18 07:00 BP 103/66 02/19/18 07:00 Pulse Ox 94 L 02/19/18 07:00 Intake & Output 02/18/18 02/19/18 02/19/18 18:59 06:59 18:59 Intake Total 500 Balance 500 Intake: IV 500 Sodium Chloride 0.9% 500 500 ml @ 999 mls/hr IV .Q31M ONE Rx#:[id number] Other: Voiding Method Toilet Toilet # Voids 4 - Exam - Exam Constitutional General appearance: cooperative, no acute distress, obese - EENT Eyes: anicteric sclerae, PERRLA, normal appearance ENT: hearing grossly normal - Neck Neck: no lymphadenopathy, normal ROM, no other, no rigidity, no stridor, no thyromegaly - Respiratory Respiratory: bilateral: CTA, negative: diminished, dullness, rales, rhonchi - Cardiovascular Rhythm: Irregularly irregular Heart sounds: normal: S1, S2 Abnormal Heart Sounds: no systolic murmur, no diastolic murmur, no rub, no S3 Gallop, no S4 Gallop, no click, no other - Gastrointestinal General gastrointestinal: normal bowel sounds, soft - Integumentary Integumentary: no rash - Neurologic Neurologic: CNII-XII intact - Musculoskeletal Musculoskeletal: gait normal, strength equal bilaterally - Psychiatric Psychiatric: A&O x's 3, appropriate affect - Labs CBC & Chem 7: 02/19/18 07:40 02/19/18 07:40 Labs: Abnormal Lab Results - Last 24 Hours (Table) 02/18/18 02/19/18 02/19/18 Range/Units 11:26 07:40 07:40 RDW 16.7 H (11.5-15.5) % Sodium 134 L 135 L (137-145) mmol/L Chloride 97 L (98-107) mmol/L BUN 23 H 24 H (9-20) mg/dL Assessment and Plan Assessment: Assessment and Plan Plan: 1. Chronic systolic heart failure. Previous echo was normal, there is reduction in ejection fraction in this admission with an EF <20%. TAMIR shows severe cardiomyopathy with moderate pericardial effusion which is likely chronic. Was discharged in 20 mg of Lasix twice a day. Hold Lasix due to concern for overdiuresis. Cardiology is following. Spironolactone and losartan will be discontinued and metoprolol decreased 12.5 mg twice daily. Fluid bolus will be given. 2 hypotention likely secondary to dehydration and atrial flutter status post 1 L IV fluid in the ER. Give 500 bolus now, Midodrine 10mg bid with fludrocortisone. Spironolactone, losartan discontinued and metoprolol decreased to 12.5 mg twice daily. 3 New atrial flutter s/p cardioversion with episode of A. fib with RVR- Patient underwent previous cardioversion to sinus rhythm 0n 01/[address] Sneed planned to repeat cardioversion but patient refused Continue amiodarone 200 mg po daily , eliquis 5 mg twice a day. 4. Hypertension, currently hypotensive. 6. 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 Follows with Dr. Kennedy. Patient also follow Dr. Jones who recommended conservative management 11 Pericardial effusion, moderate, no plans for surgical intervention 12 mild protein calorie malnutrition, patient has diminished appetite, nutritional supplementation are requested 13 CKD stage II, stable 14 BPH on flomax and finesteride 15 Coronary artery calcifications/CAD 16 GI prophylaxis Pepcid 20 mg po twice a day 17 DVT prophylaxis on eliquis 18 code status no code Discharge plan: Extended care facility or AFC on Wednesday
[2018-02-19] MEDS: ATORVASTATIN 40 MG TAB PO SCH (19:54)
[2018-02-19] MEDS: MONTELUKAST 10 MG TAB PO SCH (19:54)
[2018-02-20] MEDS: MIDODRINE 5 MG TAB PO SCH ×3 (06:45→17:29)
[2018-02-20 08:16] LABS: Anisocytosis Slight; Basophils % (A) 0 %; Eosinophils # (A) 0.2 k/uL (0-0.7); Eosinophils % (A) 2 %; HCT 43.2 % (39.0-53.0); Hypochromasia Moderate; Lymphocytes # (A) 1.1 k/uL (1.0-4.8); Lymphocytes % (A) 12 %; MCH 25.8 pg (25.0-35.0); MCHC 30.1 g/dL (31.0-37.0); MCV 85.9 fL (80.0-100.0); Monocytes # (A) 0.5 k/uL (0-1.0); Monocytes % (A) 6 %; Neutrophils # (A) 7.1 k/uL (1.3-7.7); Neutrophils % (A) 79 %; Platelet Count 144 k/uL (150-450); RBC 5.03 m/uL (4.30-5.90)
[2018-02-20 08:43] LABS: Albumin 3.6 g/dL (3.5-5.0); Calcium 8.9 mg/dL (8.4-10.2); Potassium 4.5 mmol/L (3.5-5.1); Total Bilirubin 0.5 mg/dL (0.2-1.3)
[2018-02-20] MEDS: AMIODARONE 200 MG TAB PO SCH (08:59)
[2018-02-20] MEDS: FUROSEMIDE 20 MG TAB PO SCH (09:00)
[2018-02-20] MEDS: guaiFENesin 600 MG TABLET.ER PO SCH ×2 (09:01→20:34)
[2018-02-20] MEDS: SENNOSIDES-DOCUSATE SODIUM 1 EACH TAB PO SCH ×2 (09:01→20:34)
[2018-02-20] MEDS: APIXABAN 5 MG TAB PO SCH ×2 (09:01→20:34)
[2018-02-20] MEDS: FINASTERIDE 5 MG TAB PO SCH (09:01)
[2018-02-20] MEDS: TAMSULOSIN 0.4 MG CAP.ER.24H PO SCH (09:02)
[2018-02-20] MEDS: ASPIRIN 325 MG TAB PO SCH (09:02)
[2018-02-20] MEDS: METOPROLOL TARTRATE 25 MG TAB PO SCH ×2 (09:02→20:38)
[2018-02-20] MEDS: SPIRONOLACTONE 25 MG TAB PO SCH (09:02)
[2018-02-20] MEDS: traMADol 50 MG TAB PO PRN (09:57)
--- NOTE | 2018-02-20 10:52 | P.PN ---
Subjective Progress Note Date: 02/20/18 this is a 72 years old male with past medical history of hypertension , recent stroke 3 months ago patient of Dr. Metz care of guardian Etelvina just discharge 2 days ago, comes in with low blood pressure when checked by the visiting nurse. BP was undetectable on standing and patient was complaining of dizziness. In the previous admission patient was treated for acute CHF, atrial flutter s/p unsuccessful cardioversion and was managed on medical therapy. Patient underwent TAMIR and cardioversion on 01/28 had successful electrical cardioversion to sinus rhythm with left ventricular cavity dilated with severe impaired left ventricular systolic function, moderate degree of mitral regurgitation, mild degree of tricuspid regurgitation. Echocardiogram reveals ejection fraction less than 20%, moderate left ventricular hypertrophy, LA is severely dialted, and moderate pericaridal effusion. 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 He has seen vascular surgery in the past who has recommended conservative management for the above. Pericardial effusion documented on echocardiogram appears to be chronic secondary to viral infection. Patient was also noted to e hypotensive for which midodrine was iniitiated. On evaluation today, patient was hypotensive at rest. He received 1 L of normal saline in the ER. BNP is elevated more than 4000 but is less than the previous BNP drawn in the last admission. Patient was orthostatic positive on blood pressure readings drawn today. The endorses dizziness but denies any chest pain or shortness of breath. Patient was not discharged on Lasix due to low blood pressure. Patient will be admitted for orthostatic hypotension likely secondary to overdiuresis. 02/18: Patient has no new complaints today. His blood pressure continues to be on the low side with systolic running 70-100. Cardiology consult remains pending. Patient has been taken off losartan and Aldactone and metoprolol will be decreased to 12.5 mg twice daily. Orthostatics are positive. He does complain of dizziness when he stands. Patient will be given a bolus of 500 mL. Social work is met with the patient's POA and can she do longer wants responsibility of being decision maker and is requesting public guardian. Social work provided her with a list of adult foster care homes. Anticipate discharge on Wednesday to either [facility] outside of the area or adult foster care. 02/19: Patient is sitting up in bed in no apparent distress, he denies any chest pain, shortness of breath, he is less dizzy, he has no new complaints, awaiting for disposition hopefully on Wednesday. 02/20: Patient is feeling about the same, he had an episode of hypotension yesterday he was taken off Lasix yesterday we will keep holding the Lasix encourage oral intake of fluid monitor the patient over the next 24 hours hopefully he'll be discharged tomorrow morning. Objective - Vital Signs Vital signs: Vital Signs Temp 97.5 F L 02/20/18 05:57 Pulse 117 H 02/20/18 05:57 Resp 16 02/20/18 05:57 BP 105/75 02/20/18 07:24 Pulse Ox 99 02/20/18 05:57 Intake & Output 02/19/18 02/20/18 02/20/18 18:59 06:59 18:59 Output Total 1 Balance -1 Weight 78.5 kg Output: Urine 1 Other: Voiding Method Toilet # Voids 2 2 # Bowel Movements 1 - Exam - Exam Constitutional General appearance: cooperative, no acute distress, obese - EENT Eyes: anicteric sclerae, PERRLA, normal appearance ENT: hearing grossly normal - Neck Neck: no lymphadenopathy, normal ROM, no other, no rigidity, no stridor, no thyromegaly - Respiratory Respiratory: bilateral: CTA, negative: diminished, dullness, rales, rhonchi - Cardiovascular Rhythm: Irregularly irregular Heart sounds: normal: S1, S2 Abnormal Heart Sounds: no systolic murmur, no diastolic murmur, no rub, no S3 Gallop, no S4 Gallop, no click, no other - Gastrointestinal General gastrointestinal: normal bowel sounds, soft - Integumentary Integumentary: no rash - Neurologic Neurologic: CNII-XII intact - Musculoskeletal Musculoskeletal: gait normal, strength equal bilaterally - Psychiatric Psychiatric: A&O x's 3, appropriate affect - Labs CBC & Chem 7: 02/20/18 07:51 02/20/18 07:51 Labs: Abnormal Lab Results - Last 24 Hours (Table) 02/19/18 02/19/18 Range/Units 07:40 07:40 RDW 16.7 H (11.5-15.5) % Sodium 135 L (137-145) mmol/L BUN 24 H (9-20) mg/dL Assessment and Plan Assessment: Assessment and Plan Plan: 1. Chronic systolic heart failure. Previous echo was normal, there is reduction in ejection fraction in this admission with an EF <20%. TAMIR shows severe cardiomyopathy with moderate pericardial effusion which is likely chronic. Was discharged in 20 mg of Lasix twice a day. Hold Lasix due to concern for overdiuresis. Cardiology is following. Spironolactone and losartan will be discontinued and metoprolol decreased 12.5 mg twice daily. Fluid bolus will be given. 2 hypotention likely secondary to dehydration and atrial flutter status post 1 L IV fluid in the ER. Give 500 bolus now, Midodrine 10mg bid with fludrocortisone. Spironolactone, losartan discontinued and metoprolol decreased to 12.5 mg twice daily. 3 New atrial flutter s/p cardioversion with episode of A. fib with RVR- Patient underwent previous cardioversion to sinus rhythm 0n 01/[address] Sneed planned to repeat cardioversion but patient refused Continue amiodarone 200 mg po daily , eliquis 5 mg twice a day. 4. Hypertension, currently hypotensive. 6. 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 Follows with Dr. Kennedy. Patient also follow Dr. Jones who recommended conservative management 11 Pericardial effusion, moderate, no plans for surgical intervention 12 mild protein calorie malnutrition, patient has diminished appetite, nutritional supplementation are requested 13 CKD stage II, stable 14 BPH on flomax and finesteride 15 Coronary artery calcifications/CAD 16 GI prophylaxis Pepcid 20 mg po twice a day 17 DVT prophylaxis on eliquis 18 code status no code Discharge plan: Extended care facility or AFC on Wednesday
[2018-02-20] MEDS: MONTELUKAST 10 MG TAB PO SCH (20:34)
[2018-02-20] MEDS: ATORVASTATIN 40 MG TAB PO SCH (20:34)
[2018-02-21] MEDS: MIDODRINE 5 MG TAB PO SCH ×3 (06:02→17:10)
[2018-02-21] MEDS: SENNOSIDES-DOCUSATE SODIUM 1 EACH TAB PO SCH ×2 (07:41→20:02)
[2018-02-21] MEDS: TAMSULOSIN 0.4 MG CAP.ER.24H PO SCH (07:41)
[2018-02-21] MEDS: SPIRONOLACTONE 25 MG TAB PO SCH (07:41)
[2018-02-21] MEDS: guaiFENesin 600 MG TABLET.ER PO SCH ×2 (07:41→20:02)
[2018-02-21] MEDS: AMIODARONE 200 MG TAB PO SCH (07:42)
[2018-02-21] MEDS: APIXABAN 5 MG TAB PO SCH ×2 (07:42→20:02)
[2018-02-21] MEDS: FINASTERIDE 5 MG TAB PO SCH (07:42)
[2018-02-21] MEDS: METOPROLOL TARTRATE 25 MG TAB PO SCH (07:42)
[2018-02-21] MEDS: ASPIRIN 81 MG PO SCH (07:42)
[2018-02-21] MEDS: METOPROLOL TARTRATE 12.5 MG TAB PO SCH ×2 (08:35→22:12)
--- NOTE | 2018-02-21 15:31 | P.PN ---
Subjective Progress Note Date: 02/21/18 this is a 72 years old male with past medical history of hypertension , recent stroke 3 months ago patient of Dr. Metz care of guardian Etelvina just discharge 2 days ago, comes in with low blood pressure when checked by the visiting nurse. BP was undetectable on standing and patient was complaining of dizziness. In the previous admission patient was treated for acute CHF, atrial flutter s/p unsuccessful cardioversion and was managed on medical therapy. Patient underwent TAMIR and cardioversion on 01/28 had successful electrical cardioversion to sinus rhythm with left ventricular cavity dilated with severe impaired left ventricular systolic function, moderate degree of mitral regurgitation, mild degree of tricuspid regurgitation. Echocardiogram reveals ejection fraction less than 20%, moderate left ventricular hypertrophy, LA is severely dialted, and moderate pericaridal effusion. 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 He has seen vascular surgery in the past who has recommended conservative management for the above. Pericardial effusion documented on echocardiogram appears to be chronic secondary to viral infection. Patient was also noted to e hypotensive for which midodrine was iniitiated. On evaluation today, patient was hypotensive at rest. He received 1 L of normal saline in the ER. BNP is elevated more than 4000 but is less than the previous BNP drawn in the last admission. Patient was orthostatic positive on blood pressure readings drawn today. The endorses dizziness but denies any chest pain or shortness of breath. Patient was not discharged on Lasix due to low blood pressure. Patient will be admitted for orthostatic hypotension likely secondary to overdiuresis. 02/18: Patient has no new complaints today. His blood pressure continues to be on the low side with systolic running 70-100. Cardiology consult remains pending. Patient has been taken off losartan and Aldactone and metoprolol will be decreased to 12.5 mg twice daily. Orthostatics are positive. He does complain of dizziness when he stands. Patient will be given a bolus of 500 mL. Social work is met with the patient's POA and can she do longer wants responsibility of being decision maker and is requesting public guardian. Social work provided her with a list of adult foster care homes. Anticipate discharge on Wednesday to either [facility] outside of the area or adult foster care. 02/19: Patient is sitting up in bed in no apparent distress, he denies any chest pain, shortness of breath, he is less dizzy, he has no new complaints, awaiting for disposition hopefully on Wednesday. 02/20: Patient is feeling about the same, he had an episode of hypotension yesterday he was taken off Lasix yesterday we will keep holding the Lasix encourage oral intake of fluid monitor the patient over the next 24 hours hopefully he'll be discharged tomorrow morning. 02/21: Patient denies any lightheadedness with sitting up. Apparently patient has been up to the bathroom without any difficulty today. While times adult foster skilled nursing to come in to evaluate patient. There is guardian ship addressed tomorrow at Court. Patient has been hypotensive for which metoprolol to be decreased to 12.5 mg twice daily. NARESH hose up been ordered. Objective - Vital Signs Vital signs: Vital Signs Temp 97.5 F L 02/21/18 06:28 Pulse 71 02/21/18 06:28 Resp 20 02/21/18 06:28 BP 92/66 02/21/18 06:28 Pulse Ox 94 L 02/21/18 06:28 Intake & Output 02/20/18 02/21/18 02/21/18 18:59 06:59 18:59 Intake Total 100 Balance 100 Intake: Oral 100 Other: Voiding Method Toilet Toilet # Voids 5 3 3 - Exam Constitutional General appearance: cooperative, no acute distress, obese - EENT Eyes: anicteric sclerae, PERRLA, normal appearance ENT: hearing grossly normal - Neck Neck: no lymphadenopathy, normal ROM, no other, no rigidity, no stridor, no thyromegaly - Respiratory Respiratory: bilateral: CTA, negative: diminished, dullness, rales, rhonchi - Cardiovascular Rhythm: Irregularly irregular Heart sounds: normal: S1, S2 Abnormal Heart Sounds: no systolic murmur, no diastolic murmur, no rub, no S3 Gallop, no S4 Gallop, no click, no other - Gastrointestinal General gastrointestinal: normal bowel sounds, soft - Integumentary Integumentary: no rash - Neurologic Neurologic: CNII-XII intact - Musculoskeletal Musculoskeletal: gait normal, strength equal bilaterally - Psychiatric Psychiatric: A&O x's 3, appropriate affect - Labs CBC & Chem 7: 02/20/18 07:51 02/20/18 07:51 Assessment and Plan Plan: 1. Chronic systolic heart failure. Previous echo was normal, there is reduction in ejection fraction in this admission with an EF <20%. TAMIR shows severe cardiomyopathy with moderate pericardial effusion which is likely chronic. Was discharged in 20 mg of Lasix twice a day. Hold Lasix due to concern for overdiuresis. Cardiology is following. Spironolactone and losartan will be discontinued and metoprolol decreased 12.5 mg twice daily. Fluid bolus will be given. 2 hypotention likely secondary to dehydration and atrial flutter status post 1 L IV fluid in the ER. Give 500 bolus now, Midodrine 10mg bid with fludrocortisone. Spironolactone, losartan discontinued and metoprolol decreased to 12.5 mg twice daily. 3 New atrial flutter s/p cardioversion with episode of A. fib with RVR- Patient underwent previous cardioversion to sinus rhythm 0n 01/[address] Sneed planned to repeat cardioversion but patient refused Continue amiodarone 200 mg po daily , eliquis 5 mg twice a day. 4. Hypertension, currently hypotensive. 6. 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 Follows with Dr. Kennedy. Patient also follow Dr. Jones who recommended conservative management 11 Pericardial effusion, moderate, no plans for surgical intervention 12 mild protein calorie malnutrition, patient has diminished appetite, nutritional supplementation are requested 13 CKD stage II, stable 14 BPH on flomax and finesteride 15 Coronary artery calcifications/CAD 16 GI prophylaxis Pepcid 20 mg po twice a day 17 DVT prophylaxis on eliquis 18 code status no code Discharge plan: Extended care facility or [facility] Impression and plan of care have been directed as dictated by the signing physician. Etelvina Gallegos nurse practitioner acting as scribe for signing physician.
[2018-02-21] MEDS: traMADol 50 MG TAB PO PRN ×2 (15:49→22:12)
--- NOTE | 2018-02-21 17:28 | PN ---
PROGRESS NOTE Mr. Allen is a 73-year-old male patient who has known atrial flutter, status post electrical cardioversion, and then subsequently had atrial fibrillation despite being on oral amiodarone. He remains on oral amiodarone now for about a month and he still remains in atrial fibrillation. He has refused electrical cardioversion for atrial fibrillation. He denies any chest discomfort, dizziness, lightheadedness. PHYSICAL EXAMINATION: His vitals are stable. Blood pressure is 94/46 mmHg. Head and neck examination is normal. Heart sounds are irregular. Lungs are clear on auscultation. Extremities are warm. No edema. IMPRESSION: 1. Persistent atrial fibrillation. 2. History of atrial flutter, status post electrical cardioversion. 3. On appropriate anticoagulation. 4. History of cardiomyopathy. SUGGEST: Consider electrical cardioversion for atrial fibrillation while on apixaban. Otherwise, amiodarone should be discontinued and rate control studies should be adopted. MMODL / IJN: [id number] /
[2018-02-21] MEDS: MONTELUKAST 10 MG TAB PO SCH (20:02)
[2018-02-21] MEDS: ATORVASTATIN 40 MG TAB PO SCH (20:02)
[2018-02-22] MEDS: MIDODRINE 5 MG TAB PO SCH ×3 (05:07→17:53)
[2018-02-22] MEDS: traMADol 50 MG TAB PO PRN ×2 (05:07→18:54)
[2018-02-22] MEDS: guaiFENesin 600 MG TABLET.ER PO SCH ×2 (08:30→19:26)
[2018-02-22] MEDS: TAMSULOSIN 0.4 MG CAP.ER.24H PO SCH (08:30)
[2018-02-22] MEDS: APIXABAN 5 MG TAB PO SCH ×2 (08:30→19:26)
[2018-02-22] MEDS: METOPROLOL TARTRATE 12.5 MG TAB PO SCH (08:30)
[2018-02-22] MEDS: FINASTERIDE 5 MG TAB PO SCH (08:30)
[2018-02-22] MEDS: SPIRONOLACTONE 25 MG TAB PO SCH (08:30)
[2018-02-22] MEDS: SENNOSIDES-DOCUSATE SODIUM 1 EACH TAB PO SCH ×2 (08:30→19:26)
[2018-02-22] MEDS: AMIODARONE 200 MG TAB PO SCH (08:30)
[2018-02-22] MEDS: ASPIRIN 81 MG PO SCH (08:30)
[2018-02-22] MEDS: ALPRAZolam 0.25 MG TAB PO PRN (08:34)
[2018-02-22 11:22] VITALS: BMI 25.5
--- NOTE | 2018-02-22 13:50 | P.PN ---
Subjective Principal diagnosis: She seems to be very comfortable, doing well. Denies any chest discomfort does not appear to be short of breath no JVD no lower extremity edema not short of breath no chest pain He is in atrial fibrillation heart rates between 70-90 beats a minute blood pressure 85 mmHg systolic Afebrile 98.2F Heart sounds are irregular no murmurs no gallop Sounds are reduced bilaterally but there are no rhonchi no crackles Abdomen is soft nontender Extended is warm no edema Impression Known cardiomyopathy History of atrial flutter status post electrical cardioversion History of atrial fibrillation after oral amiodarone was started the patient refused electrical cardioversion Suggest Stop amiodarone and continue beta blockers for rate control He may go home from a cardiac standpoint Objective - Vital Signs Vital signs: Vital Signs Temp 98.2 F 02/22/18 07:00 Pulse 76 02/22/18 07:00 Resp 18 02/22/18 07:00 BP 85/61 02/22/18 07:00 Pulse Ox 93 L 02/22/18 07:00 Intake & Output 02/21/18 02/22/18 02/22/18 18:59 06:59 18:59 Weight 78.5 kg Other: Voiding Method Toilet Toilet # Voids 3 4 4 # Bowel Movements 0 - Labs CBC & Chem 7: 02/20/18 07:51 02/20/18 07:51
[2018-02-22] MEDS: MONTELUKAST 10 MG TAB PO SCH (19:26)
[2018-02-22] MEDS: ATORVASTATIN 40 MG TAB PO SCH (19:26)
[2018-02-23] MEDS: traMADol 50 MG TAB PO PRN ×2 (00:56→17:30)
[2018-02-23] MEDS: MIDODRINE 5 MG TAB PO SCH ×3 (05:03→17:30)
[2018-02-23] MEDS ORDERED: METOPROLOL TARTRATE 12.5 MG TAB PO SCH (09:00)
[2018-02-23] MEDS: guaiFENesin 600 MG TABLET.ER PO SCH ×2 (09:13→20:52)
[2018-02-23] MEDS: SENNOSIDES-DOCUSATE SODIUM 1 EACH TAB PO SCH ×2 (09:13→20:51)
[2018-02-23] MEDS: ASPIRIN 81 MG PO SCH (09:13)
[2018-02-23] MEDS: TAMSULOSIN 0.4 MG CAP.ER.24H PO SCH (09:13)
[2018-02-23] MEDS: APIXABAN 5 MG TAB PO SCH ×2 (09:13→20:52)
[2018-02-23] MEDS: SPIRONOLACTONE 25 MG TAB PO SCH (09:14)
[2018-02-23] MEDS: FINASTERIDE 5 MG TAB PO SCH (09:14)
--- NOTE | 2018-02-23 09:30 | P.PN ---
Subjective Progress Note Date: 02/22/18 this is a 72 years old male with past medical history of hypertension , recent stroke 3 months ago patient of Dr. Metz care of guardian Etelvina just discharge 2 days ago, comes in with low blood pressure when checked by the visiting nurse. BP was undetectable on standing and patient was complaining of dizziness. In the previous admission patient was treated for acute CHF, atrial flutter s/p unsuccessful cardioversion and was managed on medical therapy. Patient underwent TAMIR and cardioversion on 01/28 had successful electrical cardioversion to sinus rhythm with left ventricular cavity dilated with severe impaired left ventricular systolic function, moderate degree of mitral regurgitation, mild degree of tricuspid regurgitation. Echocardiogram reveals ejection fraction less than 20%, moderate left ventricular hypertrophy, LA is severely dialted, and moderate pericaridal effusion. 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 He has seen vascular surgery in the past who has recommended conservative management for the above. Pericardial effusion documented on echocardiogram appears to be chronic secondary to viral infection. Patient was also noted to e hypotensive for which midodrine was iniitiated. On evaluation today, patient was hypotensive at rest. He received 1 L of normal saline in the ER. BNP is elevated more than 4000 but is less than the previous BNP drawn in the last admission. Patient was orthostatic positive on blood pressure readings drawn today. The endorses dizziness but denies any chest pain or shortness of breath. Patient was not discharged on Lasix due to low blood pressure. Patient will be admitted for orthostatic hypotension likely secondary to overdiuresis. 02/18: Patient has no new complaints today. His blood pressure continues to be on the low side with systolic running 70-100. Cardiology consult remains pending. Patient has been taken off losartan and Aldactone and metoprolol will be decreased to 12.5 mg twice daily. Orthostatics are positive. He does complain of dizziness when he stands. Patient will be given a bolus of 500 mL. Social work is met with the patient's POA and can she do longer wants responsibility of being decision maker and is requesting public guardian. Social work provided her with a list of adult foster care homes. Anticipate discharge on Wednesday to either [facility] outside of the area or adult foster care. 02/19: Patient is sitting up in bed in no apparent distress, he denies any chest pain, shortness of breath, he is less dizzy, he has no new complaints, awaiting for disposition hopefully on Wednesday. 02/20: Patient is feeling about the same, he had an episode of hypotension yesterday he was taken off Lasix yesterday we will keep holding the Lasix encourage oral intake of fluid monitor the patient over the next 24 hours hopefully he'll be discharged tomorrow morning. 02/21: Patient denies any lightheadedness with sitting up. Apparently patient has been up to the bathroom without any difficulty today. While times adult foster [facility] to come in to evaluate patient. There is guardian ship addressed tomorrow at Court. Patient has been hypotensive for which metoprolol to be decreased to 12.5 mg twice daily. NARESH hose up been ordered. 02/22: Patient denies any dizziness with sitting but his blood pressure remains low. Dr. Lew has recommended discontinuing amiodarone and continue beta nubia. Amiodarone is started and discontinued and metoprolol will be continued at 12.5 mg twice daily. Patient's POA now has guardianship and is making arrangements for patient to go to [facility]. The earliest the patient will be able to be discharged to the [facility] will be late on Wednesday or morning. Social work is working with guardian and [facility] to complete plans. Objective - Vital Signs Vital signs: Vital Signs Temp 97.9 F 02/23/18 06:24 Pulse 80 02/23/18 06:24 Resp 16 02/23/18 06:24 BP 135/79 02/23/18 06:24 Pulse Ox 92 L 02/23/18 06:24 Intake & Output 02/22/18 02/23/18 02/23/18 18:59 06:59 18:59 Weight 78.5 kg Other: Voiding Method Toilet # Voids 2 4 # Bowel Movements 0 - Exam Constitutional General appearance: cooperative, no acute distress, obese - EENT Eyes: anicteric sclerae, PERRLA, normal appearance ENT: hearing grossly normal - Neck Neck: no lymphadenopathy, normal ROM, no other, no rigidity, no stridor, no thyromegaly - Respiratory Respiratory: bilateral: CTA, negative: diminished, dullness, rales, rhonchi - Cardiovascular Rhythm: Irregularly irregular Heart sounds: normal: S1, S2 Abnormal Heart Sounds: no systolic murmur, no diastolic murmur, no rub, no S3 Gallop, no S4 Gallop, no click, no other - Gastrointestinal General gastrointestinal: normal bowel sounds, soft - Integumentary Integumentary: no rash - Neurologic Neurologic: CNII-XII intact - Musculoskeletal Musculoskeletal: gait normal, strength equal bilaterally - Psychiatric Psychiatric: A&O x's 3, appropriate affect - Labs CBC & Chem 7: 02/20/18 07:51 02/20/18 07:51 Assessment and Plan Plan: 1. Chronic systolic heart failure. Previous echo was normal, there is reduction in ejection fraction in this admission with an EF <20%. TAMIR shows severe cardiomyopathy with moderate pericardial effusion which is likely chronic. Cardiology is following. Spironolactone and losartan will be discontinued and metoprolol decreased 12.5 mg twice daily. Amiodarone discontinued by cardiology 2 hypotention likely secondary to dehydration and atrial flutter status post 1 L IV fluid in the ER. Give 500 bolus now, Midodrine 10mg tid. Spironolactone , losartan, amiodarone, discontinued and metoprolol decreased to 12.5 mg twice daily. 3 New atrial flutter s/p cardioversion with episode of A. fib with RVR- Patient underwent previous cardioversion to sinus rhythm 0n 01/[address] Sneed planned to repeat cardioversion but patient refused Amiodarone continued, continue Lopressor 12.5 mg twice daily, eliquis 5 mg twice a day. 4. Hypertension, currently hypotensive. 6. 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 Follows with Dr. Kennedy. Patient also follow Dr. Jones who recommended conservative management 11 Pericardial effusion, moderate, no plans for surgical intervention 12 mild protein calorie malnutrition, patient has diminished appetite, nutritional supplementation are requested 13 CKD stage II, stable 14 BPH on flomax and finesteride 15 Coronary artery calcifications/CAD 16 GI prophylaxis Pepcid 20 mg po twice a day 17 DVT prophylaxis on eliquis 18 code status no code Discharge plan: [facility] on Wednesday or Impression and plan of care have been directed as dictated by the signing physician. Etelvina Gallegos nurse practitioner acting as scribe for signing physician.
--- NOTE | 2018-02-23 13:51 | P.PN ---
Subjective Progress Note Date: 02/23/18 this is a 72 years old male with past medical history of hypertension , recent stroke 3 months ago patient of Dr. Metz care of guardian Etelvina just discharge 2 days ago, comes in with low blood pressure when checked by the visiting nurse. BP was undetectable on standing and patient was complaining of dizziness. In the previous admission patient was treated for acute CHF, atrial flutter s/p unsuccessful cardioversion and was managed on medical therapy. Patient underwent TAMIR and cardioversion on 01/28 had successful electrical cardioversion to sinus rhythm with left ventricular cavity dilated with severe impaired left ventricular systolic function, moderate degree of mitral regurgitation, mild degree of tricuspid regurgitation. Echocardiogram reveals ejection fraction less than 20%, moderate left ventricular hypertrophy, LA is severely dialted, and moderate pericaridal effusion. 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 He has seen vascular surgery in the past who has recommended conservative management for the above. Pericardial effusion documented on echocardiogram appears to be chronic secondary to viral infection. Patient was also noted to e hypotensive for which midodrine was iniitiated. On evaluation today, patient was hypotensive at rest. He received 1 L of normal saline in the ER. BNP is elevated more than 4000 but is less than the previous BNP drawn in the last admission. Patient was orthostatic positive on blood pressure readings drawn today. The endorses dizziness but denies any chest pain or shortness of breath. Patient was not discharged on Lasix due to low blood pressure. Patient will be admitted for orthostatic hypotension likely secondary to overdiuresis. 02/18: Patient has no new complaints today. His blood pressure continues to be on the low side with systolic running 70-100. Cardiology consult remains pending. Patient has been taken off losartan and Aldactone and metoprolol will be decreased to 12.5 mg twice daily. Orthostatics are positive. He does complain of dizziness when he stands. Patient will be given a bolus of 500 mL. Social work is met with the patient's POA and can she do longer wants responsibility of being decision maker and is requesting public guardian. Social work provided her with a list of adult foster care homes. Anticipate discharge on Wednesday to either [facility] outside of the area or adult foster care. 02/19: Patient is sitting up in bed in no apparent distress, he denies any chest pain, shortness of breath, he is less dizzy, he has no new complaints, awaiting for disposition hopefully on Wednesday. 02/20: Patient is feeling about the same, he had an episode of hypotension yesterday he was taken off Lasix yesterday we will keep holding the Lasix encourage oral intake of fluid monitor the patient over the next 24 hours hopefully he'll be discharged tomorrow morning. 02/21: Patient denies any lightheadedness with sitting up. Apparently patient has been up to the bathroom without any difficulty today. While times adult [facility] to come in to evaluate patient. There is guardian ship addressed tomorrow at Court. Patient has been hypotensive for which metoprolol to be decreased to 12.5 mg twice daily. NARESH hose up been ordered. 02/22: Patient denies any dizziness with sitting but his blood pressure remains low. Dr. Lew has recommended discontinuing amiodarone and continue beta nubia. Amiodarone is started and discontinued and metoprolol will be continued at 12.5 mg twice daily. Patient's POA now has guardianship and is making arrangements for patient to go to [facility]. The earliest the patient will be able to be discharged to the [facility] will be late on Wednesday or morning. Social work is working with guardian and [facility] to complete plans. 02/23: Above medication changes have been made and patient is currently on only Lopressor 12.5 mg twice daily and amiodarone is discontinued. He is also on Aldactone and admitted during 10 mg 3 times daily. Patient has had no complaints of lightheadedness or dizziness. We are waiting for patient to be accepted at [facility] which will probably happen tomorrow. Objective - Vital Signs Vital signs: Vital Signs Temp 97.9 F 02/23/18 06:24 Pulse 80 02/23/18 06:24 Resp 16 02/23/18 06:24 BP 135/79 02/23/18 06:24 Pulse Ox 92 L 02/23/18 06:24 Intake & Output 02/22/18 02/23/18 02/23/18 18:59 06:59 18:59 Weight 78.5 kg Other: Voiding Method Toilet # Voids 2 4 # Bowel Movements 0 - Exam Constitutional General appearance: cooperative, no acute distress, obese - EENT Eyes: anicteric sclerae, PERRLA, normal appearance ENT: hearing grossly normal - Neck Neck: no lymphadenopathy, normal ROM, no other, no rigidity, no stridor, no thyromegaly - Respiratory Respiratory: bilateral: CTA, negative: diminished, dullness, rales, rhonchi - Cardiovascular Rhythm: Irregularly irregular Heart sounds: normal: S1, S2 Abnormal Heart Sounds: no systolic murmur, no diastolic murmur, no rub, no S3 Gallop, no S4 Gallop, no click, no other - Gastrointestinal General gastrointestinal: normal bowel sounds, soft - Integumentary Integumentary: no rash - Neurologic Neurologic: CNII-XII intact - Musculoskeletal Musculoskeletal: gait normal, strength equal bilaterally - Psychiatric Psychiatric: A&O x's 3, appropriate affect - Labs CBC & Chem 7: 02/20/18 07:51 02/20/18 07:51 Assessment and Plan Plan: 1. Chronic systolic heart failure. Previous echo was normal, there is reduction in ejection fraction in this admission with an EF <20%. TAMIR shows severe cardiomyopathy with moderate pericardial effusion which is likely chronic. Cardiology is following. Spironolactone and losartan will be discontinued and metoprolol decreased 12.5 mg twice daily. Amiodarone discontinued by cardiology 2 hypotention likely secondary to dehydration and atrial flutter status post 1 L IV fluid in the ER. Give 500 bolus now, Midodrine 10mg tid. Spironolactone , losartan, amiodarone, discontinued and metoprolol decreased to 12.5 mg twice daily. 3 New atrial flutter s/p cardioversion with episode of A. fib with RVR- Patient underwent previous cardioversion to sinus rhythm 0n 01/[address] Sneed planned to repeat cardioversion but patient refused Amiodarone continued, continue Lopressor 12.5 mg twice daily, eliquis 5 mg twice a day. 4. Hypertension, currently hypotensive. 6. 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 Follows with Dr. Kennedy. Patient also follow Dr. Jones who recommended conservative management 11 Pericardial effusion, moderate, no plans for surgical intervention 12 mild protein calorie malnutrition, patient has diminished appetite, nutritional supplementation are requested 13 CKD stage II, stable 14 BPH on flomax and finesteride 15 Coronary artery calcifications/CAD 16 GI prophylaxis Pepcid 20 mg po twice a day 17 DVT prophylaxis on eliquis 18 code status no code Discharge plan: [facility] on Impression and plan of care have been directed as dictated by the signing physician. Etelvina Gallegos nurse practitioner acting as scribe for signing physician.
[2018-02-23] MEDS: MONTELUKAST 10 MG TAB PO SCH (20:51)
[2018-02-23] MEDS: ATORVASTATIN 40 MG TAB PO SCH (20:51)
[2018-02-23] MEDS: METOPROLOL TARTRATE 12.5 MG TAB PO SCH (20:52)
[2018-02-24] MEDS: traMADol 50 MG TAB PO PRN (03:28)
[2018-02-24] MEDS: MIDODRINE 5 MG TAB PO SCH ×2 (05:54→12:51)
[2018-02-24] MEDS: APIXABAN 5 MG TAB PO SCH (09:52)
[2018-02-24] MEDS: SENNOSIDES-DOCUSATE SODIUM 1 EACH TAB PO SCH (09:52)
[2018-02-24] MEDS: guaiFENesin 600 MG TABLET.ER PO SCH (09:52)
[2018-02-24] MEDS: METOPROLOL TARTRATE 12.5 MG TAB PO SCH (09:52)
[2018-02-24] MEDS: SPIRONOLACTONE 25 MG TAB PO SCH (09:52)
[2018-02-24] MEDS: ASPIRIN 81 MG PO SCH (09:52)
[2018-02-24 10:01] VITALS: PULSE 87
[2018-02-24 15:31] VITALS: BP 93/56; RESP 16; TEMP 98.2
--- NOTE | 2018-02-24 15:35 | P.DS ---
<Jonathon Abernathy - Last Filed: 02/24/18 15:34> Providers Date of admission: 02/17/18 14:05 Attending physician: Aki Moura MD Consults: 02/17/18 11:06 Consult Physician Routine Consulting Provider: Abel Rogers Consult Reason/Comments: orthostatic hypotension Do you want consulting provider notified?: Yes Primary care physician: Alexei Metz Patient Condition at Discharge: Good Plan - Discharge Summary New Discharge Prescriptions: New Metoprolol Tartrate [Lopressor] 12.5 mg PO BID #60 dose Continue Aspirin 81 mg PO HS guaiFENesin [Mucinex] 1,200 mg PO BID #30 tab.er.12h Sennosides-Docusate Sodium [Senokot-S] 1 tab PO BID #60 tablet ALPRAZolam [Xanax] 0.25 mg PO BID PRN #14 tab PRN Reason: Anxiety Apixaban [Eliquis] 5 mg PO BID #60 tablet Atorvastatin Calcium [Lipitor] 40 mg PO HS #30 tablet Midodrine HCl [ProAmatine] 10 mg PO TID #90 tablet Montelukast Sodium [Singulair] 10 mg PO HS #30 tablet Spironolactone [Aldactone] 12.5 mg PO DAILY #30 tablet Discontinued Finasteride [Proscar] 5 mg PO DAILY Tamsulosin [Flomax] 0.4 mg PO DAILY tiZANidine HCL 2 mg PO BID PRN #0 PRN Reason: muscle spasms traMADol HCL [Ultram] 50 mg PO Q6HR PRN #20 tab PRN Reason: Pain Amiodarone HCl [Pacerone] 200 mg PO DAILY #30 tab Furosemide [Lasix] 20 mg PO BID #60 tab Losartan [Cozaar] 12.5 mg PO DAILY #30 tab Metoprolol Tartrate 25 mg PO BID #60 tab Discharge Medication List Aspirin 81 mg PO HS 01/25/18 [History] Sennosides-Docusate Sodium [Senokot-S] 1 tab PO BID #60 tablet 02/15/18 [Rx] guaiFENesin [Mucinex] 1,200 mg PO BID #30 tab.er.12h 02/15/18 [Rx] Metoprolol Tartrate [Lopressor] 12.5 mg PO BID #60 dose 02/22/18 [Rx] ALPRAZolam [Xanax] 0.25 mg PO BID PRN #14 tab 02/24/18 [Rx] Apixaban [Eliquis] 5 mg PO BID #60 tablet 02/24/18 [Rx] Atorvastatin Calcium [Lipitor] 40 mg PO HS #30 tablet 02/24/18 [Rx] Midodrine HCl [ProAmatine] 10 mg PO TID #90 tablet 02/24/18 [Rx] Montelukast Sodium [Singulair] 10 mg PO HS #30 tablet 02/24/18 [Rx] Spironolactone [Aldactone] 12.5 mg PO DAILY #30 tablet 02/24/18 [Rx] Follow up Appointment(s)/Referral(s): Pedro Sneed MD [STAFF PHYSICIAN] - 03/01/18 (Nette from office will call you with appointment time. ) [facility], [NON-STAFF] - Alexei Metz MD [Primary Care Provider] - 03/01/18 (Office currently closed. Please call for follow up appoinment. ) Patient Instructions/Handouts: Hypotension (DC) Activity/Diet/Wound Care/Special Instructions: Cardiac diet. NO smoking, cessation information again recommended. Literature given. Activity as tolerated. Fall precautions. Discontinue amiodarone per Dr. Sigala continue beta blockers and heart failure medications and anticoagulation for stroke prevention since patient has persistent atrial fibrillation with underlying cardiomyopathy If systolic BP less than 90 hold metoprolol. Discharge Disposition: HOME SELF-CARE <Etelvina Gallegos A - Last Filed: 02/25/18 14:25> Providers Expected date of discharge: 02/24/18 Hospital Course: this is a 72 years old male with past medical history of hypertension , recent stroke 3 months ago patient of Dr. Metz care of guardian Etelvina just discharge 2 days ago, comes in with low blood pressure when checked by the visiting nurse. BP was undetectable on standing and patient was complaining of dizziness. In the previous admission patient was treated for acute CHF, atrial flutter s/p unsuccessful cardioversion and was managed on medical therapy. Patient underwent TAMIR and cardioversion on 01/28 had successful electrical cardioversion to sinus rhythm with left ventricular cavity dilated with severe impaired left ventricular systolic function, moderate degree of mitral regurgitation, mild degree of tricuspid regurgitation. Echocardiogram reveals ejection fraction less than 20%, moderate left ventricular hypertrophy, LA is severely dialted, and moderate pericaridal effusion. 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 He has seen vascular surgery in the past who has recommended conservative management for the above. Pericardial effusion documented on echocardiogram appears to be chronic secondary to viral infection. Patient was also noted to e hypotensive for which midodrine was iniitiated. On evaluation today, patient was hypotensive at rest. He received 1 L of normal saline in the ER. BNP is elevated more than 4000 but is less than the previous BNP drawn in the last admission. Patient was orthostatic positive on blood pressure readings drawn today. The endorses dizziness but denies any chest pain or shortness of breath. Patient was not discharged on Lasix due to low blood pressure. Patient will be admitted for orthostatic hypotension likely secondary to overdiuresis. 02/18: Patient has no new complaints today. His blood pressure continues to be on the low side with systolic running 70-100. Cardiology consult remains pending. Patient has been taken off losartan and Aldactone and metoprolol will be decreased to 12.5 mg twice daily. Orthostatics are positive. He does complain of dizziness when he stands. Patient will be given a bolus of 500 mL. Social work is met with the patient's POA and can she do longer wants responsibility of being decision maker and is requesting public guardian. Social work provided her with a list of adult foster care homes. Anticipate discharge on Wednesday to either [facility] outside of the area or adult foster care. 02/19: Patient is sitting up in bed in no apparent distress, he denies any chest pain, shortness of breath, he is less dizzy, he has no new complaints, awaiting for disposition hopefully on Wednesday. 02/20: Patient is feeling about the same, he had an episode of hypotension yesterday he was taken off Lasix yesterday we will keep holding the Lasix encourage oral intake of fluid monitor the patient over the next 24 hours hopefully he'll be discharged tomorrow morning. 02/21: Patient denies any lightheadedness with sitting up. Apparently patient has been up to the bathroom without any difficulty today. While times adult foster half-way to come in to evaluate patient. There is guardian ship addressed tomorrow at Court. Patient has been hypotensive for which metoprolol to be decreased to 12.5 mg twice daily. NARESH hose up been ordered. 02/22: Patient denies any dizziness with sitting but his blood pressure remains low. Dr. Lew has recommended discontinuing amiodarone and continue beta nubia. Amiodarone is started and discontinued and metoprolol will be continued at 12.5 mg twice daily. Patient's POA now has guardianship and is making arrangements for patient to go to [facility]. The earliest the patient will be able to be discharged to the [facility] will be late on Wednesday or morning. Social work is working with guardian and [facility] to complete plans. 02/23: Above medication changes have been made and patient is currently on only Lopressor 12.5 mg twice daily and amiodarone is discontinued. He is also on Aldactone and admitted during 10 mg 3 times daily. Patient has had no complaints of lightheadedness or dizziness. We are waiting for patient to be accepted at [facility] which will probably happen tomorrow. 02/24: Patient has been stable. His blood pressure today is 96/47 and pulse ox 97 % on room air. Advanced reactive. Papers signed in the front of the chart as well as signing med rec. Prescriptions for his medications provided. Patient will be discharged to [facility] today in stable condition. Discharge diagnoses: 1. Chronic systolic heart failure. 2 hypotention likely secondary to dehydration and atrial flutter 3 paroxysmal atrial flutter/fibrillation status post failed cardioversion 4. Hypertension, currently hypotensive. 5. 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 Follows with Dr. Kennedy. Patient also follow Dr. Jones who recommended conservative management 10 Pericardial effusion, chronic 11 mild protein calorie malnutrition 12 CKD stage II, stable 13 Coronary artery calcifications andCAD Discharge plan: [facility] Impression and plan of care have been directed as dictated by the signing physician. Etelvina Gallegos nurse practitioner acting as scribe for signing physician. Plan - Discharge Summary Discharge Rx Participant: No
--- NOTE | 2018-03-03 14:06 | CDI ---
Last Revision, October 2017 Documentation Clarification Form Date: 03/03/18 From: Maria Guadalupe Abraham Phone: If you have a question regarding this query, please contact Altagracia Brown at [phone] between 8am and 5pm Admit Date: 02/17/2018 2:05:00 PM Patient Name: Nathan Allen Visit Number: [id number] Discharge Date: 02/24/18 ATTENTION: The Clinical Documentation Specialists (CDI) and [facility] Coding Staff appreciate your assistance in clarifying documentation. Please respond to the clarification below the line at the bottom and electronically sign. The CDI & [facility] Coding staff will review the response and follow-up if needed. Please note: Queries are made part of the Legal Health Record. If you have any questions, please contact the author of this message via ITS. Dr. Abel Rogers Paroxysmal atrila flutter/fibrillation is documented in your/Dianelys Wilkinson' consult note. Dr. Moura documented new atrail flutter s/p cardioversion with episode of A. fib with RVR. Plan to repeat cardioversion was refused by patient Patient history/risk factors: History of hypertension, mitral and tricuspid valve regurgitation and cardiomyopathy Clinical Indicators: Low blood pressure Vital Signs: T. 97, P. 105, R 16, BP 84/67 Treatment: Amiodarone PO In your professional opinion, can you please clarify the type of atrial flutter? Atypical Type I Type II Typical Other, please specify Unable to determine Unable to determine. MTDD
== END 2018-02-24 15:45 | disposition home health service (06) | DRG 309 ==
LOC: EC 12:51 → 4MS4W 16:16 → EEVIPCON 02-17 14:05 → OBSVTOIN 02-17 14:05
PROVIDERS: ADMIT Internal Medicine; ATTEND Internal Medicine
DX: I48.92 Unspecified atrial flutter (principal); F33.9 Major depressive disorder, recurrent, unspecified; I13.0 Hypertensive heart and chronic kidney disease with heart failure and stage 1 through stage 4 chronic kidney disease, or unspecified chronic kidney disease; I50.22 Chronic systolic (congestive) heart failure; G45.8 Other transient cerebral ischemic attacks and related syndromes; I48.0 Paroxysmal atrial fibrillation; I42.9 Cardiomyopathy, unspecified; I95.1 Orthostatic hypotension; I44.7 Left bundle-branch block, unspecified; E86.0 Dehydration; F17.200 Nicotine dependence, unspecified, uncomplicated; H55.00 Unspecified nystagmus; H91.90 Unspecified hearing loss, unspecified ear; I08.1 Rheumatic disorders of both mitral and tricuspid valves; I25.10 Atherosclerotic heart disease of native coronary artery without angina pectoris; J44.9 Chronic obstructive pulmonary disease, unspecified; N18.2 Chronic kidney disease, stage 2 (mild); N40.1 Benign prostatic hyperplasia with lower urinary tract symptoms; R33.8 Other retention of urine; T50.2X5A Adverse effect of carbonic-anhydrase inhibitors, benzothiadiazides and other diuretics, initial encounter; Z79.01 Long term (current) use of anticoagulants; Z79.82 Long term (current) use of aspirin; Z79.899 Other long term (current) drug therapy; Z86.73 Personal history of transient ischemic attack (TIA), and cerebral infarction without residual deficits; Z91.030 Bee allergy status; E66.9 Obesity, unspecified; Z68.25 Body mass index [BMI] 25.0-25.9, adult
CPT/HCPCS: 36415; 71046; 80048; 80053; 80061; 81003; 82550; 82553; 83605; 83880; 84484; 85025; 93005; 94760; 96360; 99285

== ENCOUNTER 2018-03-01 12:51 | Emergency (ER) | payer MEDICARE ==
[2018-03-01 13:33] VITALS: RESP 18
--- NOTE | 2018-03-01 17:40 | XR ---
EXAMINATION TYPE: XR Hip Complete RT DATE OF EXAM: 03/01/2018 COMPARISON: NONE HISTORY: Hip pain TECHNIQUE: 2 views FINDINGS: AP and frog-leg views show no fracture nor dislocation. There is vascular calcification. Hi p joint spaces fairly normal. IMPRESSION: Negative right hip exam.
[2018-03-01 17:47] LABS: Appearance,Urine Clear (Clear); Bilirubin,Urine Negative (Negative); Blood,Urine Negative (Negative); Color,Urine Yellow; Glucose,Urine (UA) Negative (Negative); Ketones,Urine Negative (Negative); Leukocyte Esterase,Urine Moderate (Negative); Nitrite,Urine Negative (Negative); PH, Urine 6.5 (5.0-8.0); Protein,Urine Trace (Negative); RBC,Urine 1 /hpf (0-5); Squamous Epithelial Cell,Urine <1 /hpf (0-4); WBC,Urine 12 /hpf (0-5)
--- NOTE | 2018-03-01 18:16 | ED ---
Male Urogenital HPI - General Chief complaint: Urogenital Stated complaint: trouble urinating Time Seen by Provider: 03/01/18 16:53 Source: patient, RN notes reviewed, old records reviewed Mode of arrival: ambulatory Limitations: no limitations - History of Present Illness Initial comments: Patient is a 73 year old male with CC of difficulty urinating. Patient reports that he felt he had to push to urinate today, as well as had some minor burning to his urine. Patient also complains of right hip pain for a few weeks, painful when walking. Patient reports that he has been able to urinate since the episode of having to push to urinate in the morning. He denies any abdominal pain, distension, or other complaints at this time. HE reports he ahs seen a urologist, as well as had PSA testing done. - Related Data Home Medications Medication Instructions Recorded Confirmed Aspirin 81 mg PO DAILY@0800 01/25/18 03/01/18 Acetaminophen Tab [Tylenol Tab] 650 mg PO Q4H PRN 03/01/18 03/01/18 Apixaban [Eliquis] 5 mg PO BID@0800,199903/01/18 03/01/18 Atorvastatin Calcium [Lipitor] 40 mg PO HS@199903/01/18 03/01/18 Metoprolol Tartrate [Lopressor] 12.5 mg PO BID@0800,199903/01/18 03/01/18 Midodrine HCl [ProAmatine] 10 mg PO TID@08,12,20 03/01/18 03/01/18 Montelukast Sodium [Singulair] 10 mg PO HS@199903/01/18 03/01/18 Nitroglycerin Sl Tabs [Nitrostat] 0.4 mg SUBLINGUAL Q5M PRN 03/01/18 03/01/18 Sennosides-Docusate Sodium 1 tab PO BID@0800,199903/01/18 03/01/18 [Senokot-S] Spironolactone [Aldactone] 12.5 mg PO DAILY@0800 03/01/18 03/01/18 Previous Rx's Medication Instructions Recorded ALPRAZolam [Xanax] 0.25 mg PO BID PRN #14 tab 02/24/18 Ciprofloxacin HCl [Cipro] 500 mg PO BID 5 Days #10 tab 03/01/18 Allergies Allergy/AdvReac Type Severity Reaction Status Date / Time venom-honey bee Allergy Anaphylaxis Verified 03/01/18 16:42 Review of Systems ROS Statement: Those systems with pertinent positive or pertinent negative responses have been documented in the HPI. ROS Other: All systems not noted in ROS Statement are negative. Past Medical History Past Medical History: Atrial Flutter, Heart Failure, COPD, CVA/TIA, Hearing Disorder / Deafness, Hypertension, Prostate Disorder History of Any Multi-Drug Resistant Organisms: None Reported Past Surgical History: Back Surgery Additional Past Surgical History / Comment(s): carotid endardectomy Past Anesthesia/Blood Transfusion Reactions: No Reported Reaction Past Psychological History: No Psychological Hx Reported Smoking Status: Current every day smoker Past Alcohol Use History: None Reported Past Drug Use History: None Reported - Past Family History Father Additional Family Medical History / Comment(s): father at the age of 70, sudden unclear etiology Mother Additional Family Medical History / Comment(s): mother of old age. Patient has no siblings patient has a power of deputy prosecuting attorney who does not live with him. General Exam - General Exam Comments Initial Comments: This patient is a 73 year old male, no ditress. Limitations: no limitations General appearance: alert, in no apparent distress Head exam: Present: atraumatic, normocephalic, normal inspection Eye exam: Present: normal appearance, PERRL, EOMI. Absent: scleral icterus, conjunctival injection, periorbital swelling ENT exam: Present: normal exam, mucous membranes moist Neck exam: Present: normal inspection. Absent: tenderness, meningismus, lymphadenopathy Respiratory exam: Present: normal lung sounds bilaterally. Absent: respiratory distress, wheezes, rales, rhonchi, stridor Cardiovascular Exam: Present: regular rate, normal rhythm, normal heart sounds. Absent: systolic murmur, diastolic murmur, rubs, gallop, clicks GI/Abdominal exam: Present: soft, normal bowel sounds. Absent: distended, tenderness, guarding, rebound, rigid Extremities exam: Present: normal inspection, full ROM, normal capillary refill , other (right hip has full ROM. Normal strength, and is NV intact distally. ). Absent: tenderness, pedal edema, joint swelling, calf tenderness Back exam: Present: normal inspection Course Vital Signs 03/01/18 03/01/18 13:25 18:27 Temperature 98.0 F 98.2 F Pulse Rate 60 62 Respiratory 18 18 Rate Blood Pressure 100/60 O2 Sat by Pulse 95 98 Oximetry Medical Decision Making - Medical Decision Making 73 year old male presents with dysuria and strain to urinate this morning. Patient was able to urinate twice without difficulty in ED. UA shows evidence of UTI with WBC and bacteria, culture obtained. Will start patient on cipro. He also complains of chronic right hip pain, xrays completed and show no acute process. Discussed patient should follow up with ortho due to chronic hip pain, and urlogy for UTI and hesitancy to urinate. Patient otherwise feels well, and will be discharged home. REturn parameters discussed. - Lab Data Lab Results 03/01/18 Range/Units 17:04 Urine Color Yellow Urine Appearance Clear (Clear) Urine pH 6.5 (5.0-8.0) Ur Specific [place] 1.010 (1.001-1.035) Urine Protein Trace H (Negative) Urine Glucose (UA) Negative (Negative) Urine Ketones Negative (Negative) Urine Blood Negative (Negative) Urine Nitrite Negative (Negative) Urine Bilirubin Negative (Negative) Urine Urobilinogen 2.0 (<2.0) mg/dL Ur Leukocyte Esterase Moderate H (Negative) Urine RBC 1 (0-5) /hpf Urine WBC 12 H (0-5) /hpf Ur Squamous Epith Cells <1 (0-4) /hpf - Radiology Data Radiology results: report reviewed Negative right hip exam. Disposition Clinical Impression: UTI (urinary tract infection) Disposition: HOME SELF-CARE Condition: Good Instructions: Urinary Tract Infection in Men (ED) Additional Instructions: Take the medication as prescribed. Follow-up with primary care provider. Return to emergency department if any alarming signs or symptoms occur. Prescriptions: Ciprofloxacin HCl [Cipro] 500 mg PO BID 5 Days #10 tab Referrals: Alexei Metz MD [Primary Care Provider] - 1-2 days Time of Disposition: 18:15
[2018-03-01 18:28] VITALS: BP 100/60; PULSE 62; TEMP 98.2
== END 2018-03-01 18:26 | disposition home or self-care (01) ==
LOC: EC 12:51
DX: N39.0 Urinary tract infection, site not specified (principal); M25.551 Pain in right hip; G89.29 Other chronic pain; I48.92 Unspecified atrial flutter; I11.0 Hypertensive heart disease with heart failure; I50.9 Heart failure, unspecified; J44.9 Chronic obstructive pulmonary disease, unspecified; F17.200 Nicotine dependence, unspecified, uncomplicated; Z86.73 Personal history of transient ischemic attack (TIA), and cerebral infarction without residual deficits; Z79.82 Long term (current) use of aspirin; Z79.01 Long term (current) use of anticoagulants; Z79.899 Other long term (current) drug therapy; Z91.030 Bee allergy status
CPT/HCPCS: 51798; 73502; 81001; 87077; 87086; 87186; 99284

== ENCOUNTER 2018-03-07 16:40 | Inpatient (IN) | payer MEDICARE ==
[2018-03-07] MEDS ORDERED: SODIUM CHLORIDE 0.9% 500 ML IV STA (18:09)
--- NOTE | 2018-03-07 18:15 | ED ---
General Adult HPI - General Chief complaint: Recheck/Abnormal Lab/Rx Stated complaint: Hypertensive Time Seen by Provider: 03/07/18 17:40 Source: patient, RN notes reviewed, old records reviewed Mode of arrival: ambulatory Limitations: no limitations - History of Present Illness Initial comments: This is a 73-year-old male to the ER for evaluation. Patient presents today for evaluation of elevated heart rate elevated blood pressure. Patient has significant medical history for atrial fibrillation, patient coming in from recently carefully for weakness, dehydration, elevated heart rate low blood pressure. Patient denies any specific complaints. No recent fevers no nausea vomiting or diarrhea. He has admitted decreased recent appetite. Decreased hydration - Related Data Home Medications Medication Instructions Recorded Confirmed Aspirin 81 mg PO DAILY@0800 01/25/18 03/07/18 Acetaminophen Tab [Tylenol Tab] 650 mg PO Q4H PRN 03/01/18 03/07/18 Apixaban [Eliquis] 5 mg PO BID@0800,199903/01/18 03/07/18 Atorvastatin Calcium [Lipitor] 40 mg PO HS@199903/01/18 03/07/18 Metoprolol Tartrate [Lopressor] 12.5 mg PO BID@0800,199903/01/18 03/07/18 Midodrine HCl [ProAmatine] 10 mg PO TID@08,12,20 03/01/18 03/07/18 Montelukast Sodium [Singulair] 10 mg PO HS@199903/01/18 03/07/18 Nitroglycerin Sl Tabs [Nitrostat] 0.4 mg SUBLINGUAL Q5M PRN 03/01/18 03/07/18 Sennosides-Docusate Sodium 1 tab PO BID@0800,199903/01/18 03/07/18 [Senokot-S] Spironolactone [Aldactone] 12.5 mg PO DAILY@00 03/01/18 03/07/18 Albuterol Nebulized (Conc) 2.5 mg INHALATION RT-QID PRN 03/07/18 03/07/18 [Ventolin Nebulized (Conc)] Finasteride [Proscar] 5 mg PO DAILY@0800 03/07/18 03/07/18 Tamsulosin HCl [Flomax] 0.4 mg PO DAILY@0800 03/07/18 03/07/18 Previous Rx's Medication Instructions Recorded ALPRAZolam [Xanax] 0.25 mg PO BID PRN #14 tab 02/24/18 Ciprofloxacin HCl [Cipro] 500 mg PO BID 5 Days #10 tab 03/01/18 Allergies Allergy/AdvReac Type Severity Reaction Status Date / Time venom-honey bee Allergy Anaphylaxis Verified 03/07/18 18:51 Review of Systems ROS Statement: Those systems with pertinent positive or pertinent negative responses have been documented in the HPI. ROS Other: All systems not noted in ROS Statement are negative. Past Medical History Past Medical History: Atrial Flutter, Heart Failure, COPD, CVA/TIA, Hearing Disorder / Deafness, Hypertension, Prostate Disorder History of Any Multi-Drug Resistant Organisms: None Reported Past Surgical History: Back Surgery Additional Past Surgical History / Comment(s): carotid endardectomy Past Anesthesia/Blood Transfusion Reactions: No Reported Reaction Past Psychological History: No Psychological Hx Reported Smoking Status: Current every day smoker Past Alcohol Use History: None Reported Past Drug Use History: None Reported - Past Family History Father Additional Family Medical History / Comment(s): father at the age of 70, sudden unclear etiology Mother Additional Family Medical History / Comment(s): mother of old age. Patient has no siblings patient has a power of deputy county attorney who does not live with him. General Exam Limitations: no limitations General appearance: alert, in no apparent distress Head exam: Present: atraumatic, normocephalic, normal inspection Eye exam: Present: normal appearance, PERRL, EOMI. Absent: scleral icterus, conjunctival injection, periorbital swelling ENT exam: Present: normal exam, mucous membranes moist Neck exam: Present: normal inspection. Absent: tenderness, meningismus, lymphadenopathy Respiratory exam: Present: normal lung sounds bilaterally. Absent: respiratory distress, wheezes, rales, rhonchi, stridor Cardiovascular Exam: Present: regular rate, normal rhythm, normal heart sounds. Absent: systolic murmur, diastolic murmur, rubs, gallop, clicks GI/Abdominal exam: Present: soft, normal bowel sounds. Absent: distended, tenderness, guarding, rebound, rigid Extremities exam: Present: normal inspection, full ROM, normal capillary refill. Absent: tenderness, pedal edema, joint swelling, calf tenderness Back exam: Present: normal inspection Neurological exam: Present: alert, oriented X3, CN II-XII intact Psychiatric exam: Present: normal affect, normal mood Skin exam: Present: warm, dry, intact, normal color. Absent: rash Course Vital Signs 03/07/18 03/07/18 03/07/18 17:09 18:25 19:08 Temperature 97.5 F L Pulse Rate 136 H 136 H 137 H Respiratory 18 16 16 Rate Blood Pressure 109/76 103/81 108/80 O2 Sat by Pulse 95 95 96 Oximetry - Reevaluation(s) Reevaluation #1: 03/07/18 19:55 Patient with mild improvement heart rate, remains tachycardic A. fib with RVR, borderline hypotension, asymptomatic EKG Findings - EKG Comments: EKG Findings:: EKG shows SVT likely A. fib, rate of 136, QRS 106, QTc 487 Medical Decision Making - Medical Decision Making 74 male the ER for evaluation, patient presents ER today for evaluation regarding weakness, A. fib with RVR, dehydration. Patient to be admitted for blood pressure and heart rate control, cardiopulmonary observation - Lab Data Result diagrams: 03/07/18 17:07 03/07/18 17:07 Lab Results 03/07/18 03/07/18 03/07/18 Range/Units 17:07 17:07 17:07 WBC 8.2 (3.8-10.6) k/uL RBC 4.85 (4.30-5.90) m/uL Hgb 13.0 (13.0-17.5) gm/dL Hct 40.9 (39.0-53.0) % MCV 84.4 (80.0-100.0) fL MCH 26.8 (25.0-35.0) pg MCHC 31.8 (31.0-37.0) g/dL RDW 17.4 H (11.5-15.5) % Plt Count (150-450) k/uL Neutrophils % (Manual) 59 % Lymphocytes % (Manual) 38 % Monocytes % (Manual) 2 % Eosinophils % (Manual) 1 % Neutrophils # (Manual) 4.84 (1.3-7.7) k/uL Lymphocytes # (Manual) 3.12 (1.0-4.8) k/uL Monocytes # (Manual) 0.16 (0-1.0) k/uL Eosinophils # (Manual) 0.08 (0-0.7) k/uL Nucleated RBCs 0 (0-0) /100 WBC Manual Slide Review Performed Polychromasia Present Hypochromasia Moderate Poikilocytosis Slight Anisocytosis Slight PT (9.0-12.0) sec INR (<1.2) APTT (22.0-30.0) sec Sodium 133 L (137-145) mmol/L Potassium 5.0 (3.5-5.1) mmol/L Chloride 96 L (98-107) mmol/L Carbon Dioxide 23 (22-30) mmol/L Anion Gap 14 mmol/L BUN 16 (9-20) mg/dL Creatinine 1.07 (0.66-1.25) mg/dL Est GFR (CKD-EPI)AfAm 80 (>60 ml/min/1.73 sqM) Est GFR (CKD-EPI)NonAf 69 (>60 ml/min/1.73 sqM) Glucose 91 (74-99) mg/dL Calcium 9.1 (8.4-10.2) mg/dL Phosphorus 4.8 H (2.5-4.5) mg/dL Magnesium 2.0 (1.6-2.3) mg/dL Total Bilirubin 0.7 (0.2-1.3) mg/dL AST 51 (17-59) U/L ALT 99 H (21-72) U/L Alkaline Phosphatase 99 (38-126) U/L Total Creatine Kinase 56 (55-170) U/L CK-MB (CK-2) 3.2 H* (0.0-2.4) ng/mL CK-MB (CK-2) Rel Index 5.7 Troponin I 0.017 (0.000-0.034) ng/mL Total Protein 6.5 (6.3-8.2) g/dL Albumin 3.7 (3.5-5.0) g/dL TSH 8.270 H (0.465-4.680) mIU/L 03/07/18 Range/Units 17:07 WBC (3.8-10.6) k/uL RBC (4.30-5.90) m/uL Hgb (13.0-17.5) gm/dL Hct (39.0-53.0) % MCV (80.0-100.0) fL MCH (25.0-35.0) pg MCHC (31.0-37.0) g/dL RDW (11.5-15.5) % Plt Count (150-450) k/uL Neutrophils % (Manual) % Lymphocytes % (Manual) % Monocytes % (Manual) % Eosinophils % (Manual) % Neutrophils # (Manual) (1.3-7.7) k/uL Lymphocytes # (Manual) (1.0-4.8) k/uL Monocytes # (Manual) (0-1.0) k/uL Eosinophils # (Manual) (0-0.7) k/uL Nucleated RBCs (0-0) /100 WBC Manual Slide Review Polychromasia Hypochromasia Poikilocytosis Anisocytosis PT 14.9 H (9.0-12.0) sec INR 1.6 H (<1.2) APTT 24.2 (22.0-30.0) sec Sodium (137-145) mmol/L Potassium (3.5-5.1) mmol/L Chloride (98-107) mmol/L Carbon Dioxide (22-30) mmol/L Anion Gap mmol/L BUN (9-20) mg/dL Creatinine (0.66-1.25) mg/dL Est GFR (CKD-EPI)AfAm (>60 ml/min/1.73 sqM) Est GFR (CKD-EPI)NonAf (>60 ml/min/1.73 sqM) Glucose (74-99) mg/dL Calcium (8.4-10.2) mg/dL Phosphorus (2.5-4.5) mg/dL Magnesium (1.6-2.3) mg/dL Total Bilirubin (0.2-1.3) mg/dL AST (17-59) U/L ALT (21-72) U/L Alkaline Phosphatase (38-126) U/L Total Creatine Kinase (55-170) U/L CK-MB (CK-2) (0.0-2.4) ng/mL CK-MB (CK-2) Rel Index Troponin I (0.000-0.034) ng/mL Total Protein (6.3-8.2) g/dL Albumin (3.5-5.0) g/dL TSH (0.465-4.680) mIU/L - Radiology Data Radiology results: report reviewed (Chest x-rays negative), image reviewed Critical Care Time Critical Care Time: Yes Total Critical Care Time: 31 Disposition Clinical Impression: Weakness, Atrial fibrillation with RVR Disposition: ADMITTED IP TO THIS [facility] Condition: Fair Is patient prescribed a controlled substance at discharge?: No If prescribed controlled substance>3 days was MAPS reviewed?: No When asked, does pt state using other controlled substances?: No Referrals: Alexei Metz MD [Primary Care Provider] - 1-2 days
[2018-03-07] MEDS ORDERED: DILTIAZEM 50 MG in SODIUM CHLORIDE 0.9% 40 ML IV ONE (18:33)
[2018-03-07 18:41] LABS: Anisocytosis Slight; HCT 40.9 % (39.0-53.0); Hypochromasia Moderate; MCH 26.8 pg (25.0-35.0); MCHC 31.8 g/dL (31.0-37.0); MCV 84.4 fL (80.0-100.0); Mean Platelet Volume 11.7; Poikilocytosis Slight; RBC 4.85 m/uL (4.30-5.90); RDW 17.4 % (11.5-15.5); WBC 8.2 k/uL (3.8-10.6)
[2018-03-07 18:43] LABS: Albumin 3.7 g/dL (3.5-5.0); Calcium 9.1 mg/dL (8.4-10.2); Phosphorus 4.8 mg/dL (2.5-4.5); Total Bilirubin 0.7 mg/dL (0.2-1.3); Total Protein 6.5 g/dL (6.3-8.2)
[2018-03-07 18:44] LABS: INR 1.6 (<1.2); Partial Thromboplastin Time 24.2 sec (22.0-30.0); Prothrombin Time 14.9 sec (9.0-12.0)
[2018-03-07] MEDS ORDERED: METOPROLOL TARTRATE 5 MG/5 ML VIAL IVP STA (19:03)
[2018-03-07 19:17] LABS: Eosinophils # (M) 0.08 k/uL (0-0.7); Lymphocytes # (M) 3.12 k/uL (1.0-4.8); Monocytes # (M) 0.16 k/uL (0-1.0); Neutrophils # (M) 4.84 k/uL (1.3-7.7); Neutrophils % (M) 59 %; Nucleated Red Blood Cells 0 /100 WBC (0-0); Total Cells Counted 100
[2018-03-07 19:18] LABS: Polychromasia Present
[2018-03-07 19:24] LABS: Creatine Kinase MB 3.2 ng/mL (0.0-2.4); Troponin I 0.017 ng/mL (0.000-0.034)
[2018-03-07] MEDS ORDERED: NITROGLYCERIN SL TABS 0.4 MG TAB SUBLINGUAL PRN ×2 (19:54→22:14)
--- NOTE | 2018-03-07 20:09 | XR ---
EXAMINATION: XR chest 2V DATE AND TIME: 03/07/2018 7:28 PM ORDERING PROVIDER: Phong Lott DO CLINICAL INDICATION: Pain TECHNIQUE: PA and lateral COMPARISON: 02/08/2018 DESCRIPTION: The lungs are clear. Small bilateral pleural effusions are evident on the lateral view. The cardiac silhouette is not moderately enlarged, unchanged. The skeletal structures are intact without focal findings. The soft tissues are unremarkable. IMPRESSION: 1. SMALL BILATERAL PLEURAL EFFUSIONS, NEW SINCE THE PRIOR STUDY. 2. NO ACUTE PULMONARY PROCESS.
[2018-03-07] MEDS ORDERED: DILTIAZEM 5 MG/1 ML (25ML VIAL) IV STA (20:35)
[2018-03-07] MEDS: METOPROLOL TARTRATE 50 MG TAB PO SCH (21:15)
[2018-03-07] MEDS: SODIUM CHLORIDE 0.9% 1,000 ML IV SCH (21:15)
[2018-03-07] MEDS ORDERED: ALBUTEROL NEBULIZED 2.5 MG/3 ML INHALATION PRN (22:14)
[2018-03-07] MEDS ORDERED: ALPRAZolam 0.25 MG TAB PO PRN (22:14)
[2018-03-07] MEDS: MONTELUKAST 10 MG TAB PO SCH (22:37)
[2018-03-07] MEDS: ATORVASTATIN 40 MG TAB PO SCH (22:37)
[2018-03-07] MEDS: APIXABAN 5 MG TAB PO SCH (22:37)
[2018-03-07] MEDS: SENNOSIDES-DOCUSATE SODIUM 1 EACH TAB PO SCH (22:37)
[2018-03-07] MEDS: MIDODRINE 5 MG TAB PO SCH ×2 (22:37→22:45)
[2018-03-07] MEDS: DILTIAZEM 50 MG in SODIUM CHLORIDE 0.9% 40 ML IV SCH (23:14)
[2018-03-08 01:14] LABS: Troponin I 0.016 ng/mL (0.000-0.034)
[2018-03-08 01:24] LABS: Creatine Kinase MB 2.8 ng/mL (0.0-2.4)
[2018-03-08] MEDS: DILTIAZEM 50 MG in SODIUM CHLORIDE 0.9% 40 ML IV SCH (04:04)
[2018-03-08] MEDS ORDERED: DEXTROSE 5% IN WATER 100 ML with AMIODARONE 150 MG IV ONE (04:21)
[2018-03-08] MEDS ORDERED: AMIODARONE 450 MG in DEXTROSE 5% IN WATER 250 ML IV SCH ×2 (04:22)
[2018-03-08] MEDS: MIDODRINE 5 MG TAB PO SCH ×3 (06:41→17:44)
[2018-03-08 06:56] LABS: Troponin I 0.019 ng/mL (0.000-0.034)
[2018-03-08 06:58] LABS: Cholesterol 91 mg/dL (<200); HDL Cholesterol 32 mg/dL (40-60); LDL Cholesterol,Calculated 44 mg/dL (0-99); Triglycerides 73 mg/dL (<150)
[2018-03-08 07:04] LABS: Creatine Kinase MB 3.3 ng/mL (0.0-2.4)
[2018-03-08] MEDS: FINASTERIDE 5 MG TAB PO SCH (08:44)
[2018-03-08] MEDS: SODIUM CHLORIDE 0.9% 1,000 ML IV SCH ×2 (08:44→17:46)
[2018-03-08] MEDS: SPIRONOLACTONE 25 MG TAB PO SCH (08:44)
[2018-03-08] MEDS: METOPROLOL TARTRATE 50 MG TAB PO SCH ×2 (08:45→20:30)
[2018-03-08] MEDS: SENNOSIDES-DOCUSATE SODIUM 1 EACH TAB PO SCH ×2 (08:45→20:31)
[2018-03-08] MEDS: NICOTINE 14MG/24HR PATCH TRANSDERM SCH (08:45)
[2018-03-08] MEDS: APIXABAN 5 MG TAB PO SCH ×2 (08:46→20:30)
[2018-03-08] MEDS: ASPIRIN 81 MG PO SCH (08:46)
[2018-03-08] MEDS: TAMSULOSIN 0.4 MG CAP.ER.24H PO SCH (08:51)
[2018-03-08] MEDS ORDERED: CIPROFLOXACIN HCL 500 MG TAB PO SCH ×2 (09:00)
--- NOTE | 2018-03-08 09:54 | P.CRDCN ---
History of Present Illness Consult date: 03/08/18 Requesting physician: Alissa Henry Consult reason: atrial flutter Chief complaint: Rapid heartbeat History of present illness: This is a pleasant 73-year-old gentleman who follows regularly with Dr. Nicky Rogers in the office. He has a known history of hypertension, atrial fibrillation/flutter with prior failed cardioversion, chronic persistent, on Eliquis for anticoagulation, prior CVA, COPD, chronic tobacco use. He states that he has visiting nurses come to his home, yesterday on her visit they noted that his heart was racing quite fast, for this reason the advised that he come to the hospital for admission. Patient denies any palpitations or feeling his heart racing fast, he states that he was no more short of breath and what his usual is, denies any dizziness or lightheadedness. EKG on presentation here showed atrial flutter with a rapid ventricular response. Patient was initiated on IV Cardizem, rate continued to be in the 140 range, IV Cardizem was discontinued and patient was initiated on IV amiodarone. He continues to be in atrial flutter this morning with a heart rate now in the 1 teens. Chest x-ray on admission showed small bilateral pleural effusions as compared with prior study. Blood pressure on admission 110/70 on a blood pressure this morning 110/ 60. 94% on 3 L of oxygen. White blood cell count is normal, hemoglobin 13, platelet count pending. Sodium 133, potassium 5.0, BUN 16, creatinine 1.0. Magnesium level 2.0. TSH 8.2. Troponins 0.017, 0.016, 0.019. His home medications include Proscar 5 mg daily, Flomax 0.4 mg daily, Aldactone 12-1/2 mg daily, metoprolol 12-1/2 mg twice a day, aspirin 81 mg daily, Eliquis 5 mg one tablet by mouth twice a day. At the time of my examination this morning, patient denies any palpitations or heart racing, no dizziness or lightheadedness. He does appear mildly short of breath, but states he feels like his usual, he does have a cough, nonproductive. Past Medical History Past Medical History: Atrial Flutter, Heart Failure, COPD, CVA/TIA, Hearing Disorder / Deafness, Hypertension, Prostate Disorder History of Any Multi-Drug Resistant Organisms: None Reported Past Surgical History: Back Surgery Additional Past Surgical History / Comment(s): carotid endardectomy Past Anesthesia/Blood Transfusion Reactions: No Reported Reaction Past Psychological History: No Psychological Hx Reported Smoking Status: Former smoker Past Alcohol Use History: None Reported Past Drug Use History: None Reported - Past Family History Father Additional Family Medical History / Comment(s): father at the age of 70, sudden unclear etiology Mother Additional Family Medical History / Comment(s): mother of old age. Patient has no siblings patient has a power of civil rights attorney who does not live with him. Medications and Allergies Home Medications Medication Instructions Recorded Confirmed Type Aspirin 81 mg PO DAILY@0800 01/25/18 03/07/18 History ALPRAZolam [Xanax] 0.25 mg PO BID PRN #14 tab 02/24/18 03/07/18 Rx Acetaminophen Tab [Tylenol Tab] 650 mg PO Q4H PRN 03/01/18 03/07/18 History Apixaban [Eliquis] 5 mg PO BID@0800,199903/01/18 03/07/18 History Atorvastatin Calcium [Lipitor] 40 mg PO HS@199903/01/18 03/07/18 History Ciprofloxacin HCl [Cipro] 500 mg PO BID 5 Days #10 tab 03/01/18 03/07/18 Rx Metoprolol Tartrate [Lopressor] 12.5 mg PO BID@0800,199903/01/18 03/07/18 History Midodrine HCl [ProAmatine] 10 mg PO TID@08,12,20 03/01/18 03/07/18 History Montelukast Sodium [Singulair] 10 mg PO HS@199903/01/18 03/07/18 History Nitroglycerin Sl Tabs [Nitrostat] 0.4 mg SUBLINGUAL Q5M PRN 03/01/18 03/07/18 History Sennosides-Docusate Sodium 1 tab PO BID@0800,199903/01/18 03/07/18 History [Senokot-S] Spironolactone [Aldactone] 12.5 mg PO DAILY@0800 03/01/18 03/07/18 History Albuterol Nebulized (Conc) 2.5 mg INHALATION RT-QID PRN 03/07/18 03/07/18 History [Ventolin Nebulized (Conc)] Finasteride [Proscar] 5 mg PO DAILY@0800 03/07/18 03/07/18 History Tamsulosin HCl [Flomax] 0.4 mg PO DAILY@0800 03/07/18 03/07/18 History Allergies Allergy/AdvReac Type Severity Reaction Status Date / Time venom-honey bee Allergy Anaphylaxis Verified 03/07/18 18:51 Physical Exam Vitals: Vital Signs Temp Pulse Pulse Resp BP BP BP 03/08/18 08:00 97.4 F L 136 H 18 111/61 03/08/18 07:59 03/08/18 06:40 97/56 03/08/18 05:45 136 H 99/66 03/08/18 05:30 131 H 104/60 03/08/18 05:15 140 H 99/71 03/08/18 03:30 98.3 F 141 H 18 107/64 03/08/18 02:00 104/70 03/08/18 01:30 98/59 03/08/18 01:15 115/50 03/08/18 00:50 103/67 03/07/18 23:30 97.0 F L 135 H 18 89/50 03/07/18 21:20 137 H 18 03/07/18 21:18 97.1 F L 137 H 18 94/55 03/07/18 20:42 139 H 14 112/88 03/07/18 20:13 138 H 16 113/85 03/07/18 20:02 135 H 14 113/85 03/07/18 19:08 137 H 16 108/80 03/07/18 18:25 136 H 16 103/81 03/07/18 17:09 97.5 F L 136 H 18 109/76 Pulse Ox 03/08/18 08:00 94 L 03/08/18 07:59 92 L 03/08/18 06:40 03/08/18 05:45 03/08/18 05:30 03/08/18 05:15 03/08/18 03:30 93 L 03/08/18 02:00 03/08/18 01:30 03/08/18 01:15 03/08/18 00:50 03/07/18 23:30 94 L 03/07/18 21:20 03/07/18 21:18 95 03/07/18 20:42 94 L 03/07/18 20:13 93 L 03/07/18 20:02 03/07/18 19:08 96 03/07/18 18:25 95 03/07/18 17:09 95 Intake and Output 03/07/18 03/08/18 03/08/18 22:59 06:59 14:59 Intake Total 340.667 240 Output Total 200 Balance 140.667 240 Intake: Intake, IV Titration 40.667 Amount Diltiazem 50 mg In Sodium 40.667 Chloride 0.9% 40 ml @ 5 MG/HR 5 mls/hr IV .Q10H [facility] Rx#:[id number] Oral 300 240 Output: Urine 200 Other: Voiding Method Toilet Toilet Urinal # Voids 1 0 Weight 85.5 kg 85.5 kg PHYSICAL EXAMINATION: HEENT: Head is atraumatic, normocephalic. Pupils equal, round. Neck is supple. There is no elevated jugular venous pressure. HEART EXAMINATION: Heart S1 and S2 irregularly irregular CHEST EXAMINATION: Lungs reveal diminished air entry to bilateral bases with coarse rhonchi throughout. ABDOMEN: Soft, nontender. Bowel sounds are heard. No organomegaly noted. EXTREMITIES: 2+ peripheral pulses with no evidence of peripheral edema and no calf tenderness noted. NEUROLOGIC [patient is awake, alert and oriented -3.] . Results 03/07/18 17:07 03/07/18 17:07 Cardiac Enzymes 03/07/18 03/07/18 03/07/18 Range/Units 17:07 17:07 23:32 AST 51 (17-59) U/L CK-MB (CK-2) 3.2 H* 2.8 H* (0.0-2.4) ng/mL Troponin I 0.017 0.016 (0.000-0.034) ng/mL 03/08/18 Range/Units 05:51 AST (17-59) U/L CK-MB (CK-2) 3.3 H* (0.0-2.4) ng/mL Troponin I 0.019 (0.000-0.034) ng/mL Coagulation 03/07/18 Range/Units 17:07 PT 14.9 H (9.0-12.0) sec APTT 24.2 (22.0-30.0) sec Lipids 03/08/18 Range/Units 05:51 Triglycerides 73 (<150) mg/dL Cholesterol 91 (<200) mg/dL HDL Cholesterol 32 L (40-60) mg/dL CBC 03/07/18 Range/Units 17:07 WBC 8.2 (3.8-10.6) k/uL RBC 4.85 (4.30-5.90) m/uL Hgb 13.0 (13.0-17.5) gm/dL Hct 40.9 (39.0-53.0) % Plt Count (150-450) k/uL Comprehensive Metabolic Panel 03/07/18 Range/Units 17:07 Sodium 133 L (137-145) mmol/L Potassium 5.0 (3.5-5.1) mmol/L Chloride 96 L (98-107) mmol/L Carbon Dioxide 23 (22-30) mmol/L BUN 16 (9-20) mg/dL Creatinine 1.07 (0.66-1.25) mg/dL Glucose 91 (74-99) mg/dL Calcium 9.1 (8.4-10.2) mg/dL AST 51 (17-59) U/L ALT 99 H (21-72) U/L Alkaline Phosphatase 99 (38-126) U/L Total Protein 6.5 (6.3-8.2) g/dL Albumin 3.7 (3.5-5.0) g/dL Current Medications Generic Name Dose Route Start Last Admin Trade Name Freq PRN Reason Stop Dose Admin Acetaminophen 650 mg 03/07/18 22:14 Tylenol Tab PO Q4H PRN Mild Pain Albuterol Sulfate 2.5 mg 03/07/18 22:14 Ventolin Nebulized INHALATION RT-QID PRN Shortness Of Breath Alprazolam 0.25 mg 03/07/18 22:14 Xanax PO BID PRN Anxiety Apixaban 5 mg 03/07/18 22:30 03/08/18 08:46 Eliquis PO 5 mg BID@0800,2000 [facility] Administration Aspirin 81 mg 03/08/18 08:00 03/08/18 08:46 Aspirin PO 81 mg DAILY@0800 [facility] Administration Atorvastatin Calcium 40 mg 03/07/18 22:15 03/07/18 22:37 Lipitor PO 40 mg HS@1999 [facility] Administration Finasteride 5 mg 03/08/18 08:00 03/08/18 08:44 Proscar PO 5 mg DAILY@0800 [facility] Administration Sodium Chloride 1,000 mls @ 100 mls/hr 03/07/18 20:00 03/08/18 08:44 Saline 0.9% IV 100 mls/hr .Q10H [facility] Administration Amiodarone HCl 450 mg/ 250 mls @ 33.33 mls/hr 03/08/18 04:22 03/08/18 05:38 Dextrose/Water IV 03/09/18 04:22 1 mg/min .Q7H31M [facility] 33.33 mls/hr Protocol Administration 1 MG/MIN Metoprolol Tartrate 50 mg 03/07/18 21:00 03/08/18 08:45 Lopressor PO 50 mg BID [facility] Administration Midodrine 10 mg 03/07/18 22:30 03/08/18 06:41 Proamatine PO 10 mg TID-W/MEALS [facility] Administration Montelukast Sodium 10 mg 03/07/18 22:15 03/07/18 22:37 Singulair PO 10 mg HS@1999 [facility] Administration Nicotine 1 patch 03/08/18 09:00 03/08/18 08:45 Habitrol 14mg/24hr Patch TRANSDERM 1 patch DAILY [facility] Administration Nitroglycerin 0.4 mg 03/07/18 22:14 Nitrostat SUBLINGUAL Q5M PRN Chest Pain Senna/Docusate Sodium 1 each 03/07/18 22:15 03/08/18 08:45 Senokot-S PO 1 each BID@ [facility] Administration Spironolactone 12.5 mg 03/08/18 08:00 03/08/18 08:44 Aldactone PO 12.5 mg DAILY@0800 [facility] Administration Tamsulosin HCl 0.4 mg 03/08/18 08:00 03/08/18 08:51 Flomax PO 0.4 mg DAILY@0800 [facility] Administration Intake and Output 03/07/18 03/08/18 03/08/18 22:59 06:59 14:59 Intake Total 340.667 240 Output Total 200 Balance 140.667 240 Intake: Intake, IV Titration 40.667 Amount Diltiazem 50 mg In Sodium 40.667 Chloride 0.9% 40 ml @ 5 MG/HR 5 mls/hr IV .Q10H [facility] Rx#:[id number] Oral 300 240 Output: Urine 200 Other: Voiding Method Toilet Toilet Urinal # Voids 1 0 Weight 85.5 kg 85.5 kg 03/07/18 17:07 03/07/18 17:07 EKG Interpretations (text) EKG shows atrial flutter with rapid ventricular response Assessment and Plan Plan: Assessment and plan #1 atrial flutter with rapid ventricular response, patient currently on IV amiodarone #2 history of true flutter status post failed cardioversion #3 prior CVA #4 nicotine dependence #5 hypertension #6 hyperlipidemia #7 history of orthostatic hypotension, on midodrine Plan We will obtain an echocardiogram with Doppler study. Continue IV amiodarone along with metoprolol, dose was increased here to 50 mg twice a day, patient takes 12-1/2 twice a day at home, we need to monitor closely as patient has history of orthostatic hypotension. We will also check a free T4 and TSH level. Further recommendations to follow DNP note has been reviewed, I agree with a documented findings and plan of care. Patient was seen and examined.
[2018-03-08 11:31] LABS: T4, Free (Free Thyroxine) 1.37 ng/dL (0.78-2.19)
--- NOTE | 2018-03-08 11:41 | ECHOF ---
Referral Reason:aflutter MEASUREMENTS -------- HEIGHT: 172.7 cm WEIGHT: 85.3 kg BP: 111/61 RVIDd: 3.5 cm (< 3.3) IVSd: 1.4 cm (0.6 - 1.1) LVIDd: 5.3 cm (3.9 - 5.3) LVPWd: 1.4 cm (0.6 - 1.1) IVSs: 1.7 cm LVIDs: 5.0 cm LVPWs: 1.8 cm LA Diam: 4.7 cm (2.7 - 3.8) LAESV Index (A-L): 51.29 ml/m Ao Diam: 4.0 cm (2.0 - 3.7) AV Cusp: 2.1 cm (1.5 - 2.6) MV EXCURSION: 13.275 mm (> 18.000) MV EF SLOPE: 47 mm/s (70 - 150) EPSS: 1.0 cm RAP: 5.00 mmHg RVSP: 39.99 mmHg FINDINGS -------- The rhythm appears to be atrial flutter. This was a technically good study. The left ventricular size is normal. There is moderate concentric left ventricular hypertrophy. O verall left ventricular systolic function is severely impaired with, an EF between 20 - 25 %. The right ventricle is mildly enlarged. LA is severely dilated >40 ml/m2 The right atrium is normal in size. There is mild aortic valve sclerosis. The mitral valve leaflets are mildly thickened. Mild mitral annular calcification present. Mild-t o-moderate mitral regurgitation is present. Mild tricuspid regurgitation present. There is mild pulmonary hypertension. The right ventricular systolic pressure, as measured by Doppler, is 39.99mmHg. Trace/mild (physiologic) pulmonic regurgitation. The aortic root size is normal. Normal inferior vena cava with normal inspiratory collapse consistent with estimated right atrial pre ssure of 5 mmHg. The inferior vena cava is mildly dilated. There is a small pericardial effusion located near the left ventricle. CONCLUSIONS -------- 1. The rhythm appears to be atrial flutter. 2. This was a technically good study. 3. The left ventricular size is normal. 4. There is moderate concentric left ventricular hypertrophy. 5. Overall left ventricular systolic function is severely impaired with, an EF between 20 - 25 %. 6. The right ventricle is mildly enlarged. 7. LA is severely dilated >40 ml/m2 8. The right atrium is normal in size. 9. There is mild aortic valve sclerosis. 10. The mitral valve leaflets are mildly thickened. 11. Mild mitral annular calcification present. 12. [id number] mitral regurgitation is present. 13. Mild tricuspid regurgitation present. 14. There is mild pulmonary hypertension. 15. The right ventricular systolic pressure, as measured by Doppler, is 39.99mmHg. 16. Trace/mild (physiologic) pulmonic regurgitation. 17. The aortic root size is normal. 18. Normal inferior vena cava with normal inspiratory collapse consistent with estimated right atrial pressure of 5 mmHg. 19. The inferior vena cava is mildly dilated. 20. There is a small pericardial effusion located near the left ventricle. FUNCTIONAL MANAGER: Maren Mccracken RDCS
--- NOTE | 2018-03-08 11:51 | P.PN ---
Progress Note - Text This is an addendum to the dictated cardiology consultation. The patient presents because of her rapid heartbeat noted by his visiting nurse. He did not have any associated dyspnea, dizziness or palpitations. He has a known history of severe cardiomyopathy and prior atrial flutter -fibrillation. He underwent cardioversion that was successful in restoring sinus mechanism but he reverted back to atrial fibrillation few days after. He has episodes of hypotension, orthostatic. He denies any chest pain. He has chronic edema. He does not feel the fast heartbeat and on presentation he appears to be in atrial flutter and subsequently in atrial fibrillation. His physical examination showed clear lungs with irregular heart rhythm and 1+ edema. His initial EKG is consistent with atrial flutter with 2 to one conduction in atrial fibrillation at this point. I will switch him to oral amiodarone, continue anticoagulation. Once his heart rate is stable he may be able to be discharged home to follow-up with Dr. Sneed to see if he is a candidate for ablation because of the atrial arrhythmia and the cardiomyopathy. Thank you for this consult we will follow with you.
--- NOTE | 2018-03-08 15:53 | P.CN ---
Psychiatric Consult - . Consult date: 03/08/18 Consult:: 03/08/18 15:47 Patient was seen for on a psych consult regarding possible suicide risk. Patient is in the hospital regarding tachycardia and possible TX with pleural effusion. Patient said he was living in an adult foster longterm, and has been in and out of the hospitals several times for multiple physical problems. Apparently he was living with his girlfriend for about 30 some years who apparently is his guardian, has the authority to write any amount of checks from his account and attend all financial dealings on his behalf without his consent. Patient said his girlfriend apparently left him and moved out with his good friend. But he also says that his life that is what happens when you trust somebody and let them run your business. He insists that he is not thinking about suicide and does not want to hurt himself. He was counseled about getting his guardianship changed so that he is comfortable with his guardian. This is an obese white male who was seen in his bed. He is very hard of hearing and a comprehensive examination could not be done because of this. He does not show any psychomotor agitation or retardation. His speech is spontaneous and goal-directed. His mood is fairly euthymic and affect is appropriate to the thought content. He denies hallucinations and delusional thinking. He insists that he is not going to do anything to hurt himself. He is thankful that he could see a rn social services who may be able to help him with his guardianship and financial situation. He is oriented with adequate memory. Suggestion: Patient denies suicidal thoughts/plans. I do not have any reason to believe he is a suicide risk at this point. Please let him see the rn social services for possible help regarding his guardianship and financial matter.
[2018-03-08 16:51] LABS: Appearance,Urine Clear (Clear); Bilirubin,Urine Negative (Negative); Blood,Urine Negative (Negative); Color,Urine Yellow; Glucose,Urine (UA) Negative (Negative); Hyaline Casts,Urine 24 /lpf (0-2); Ketones,Urine Negative (Negative); Leukocyte Esterase,Urine Negative (Negative); Mucus,Urine Occasional /hpf; Nitrite,Urine Negative (Negative); PH, Urine 5.5 (5.0-8.0); Protein,Urine 1+ (Negative); RBC,Urine 1 /hpf (0-5); Specific Gravity,Urine 1.019 (1.001-1.035); Squamous Epithelial Cell,Urine <1 /hpf (0-4); Urobilinogen,Urine <2.0 mg/dL (<2.0); WBC,Urine 15 /hpf (0-5)
[2018-03-08] MEDS: AMIODARONE 200 MG TAB PO SCH (17:44)
[2018-03-08] MEDS: MONTELUKAST 10 MG TAB PO SCH (20:30)
[2018-03-08] MEDS: ATORVASTATIN 40 MG TAB PO SCH (20:30)
--- NOTE | 2018-03-08 20:52 | P.HPIM ---
History of Present Illness H&P Date: 03/08/18 Chief Complaint: Shortness On his breath and rapid heartbeat his is a 72 years old male patient of Dr. Metz with past medical history of hypertension, recent stroke 3 months ago with multiple admissions over the past several months, his most recent one was 02/17/2018, till 2017. During the last admission, he was admitted secondary to acute on chronic systolic diastolic heart failure, mixed type also required another cardioversion at that time. He was discharged to [facility] after a lengthy admission from our facility. He was seen by Dr. byers during the last admission 02/17/2018, atrial flutter s/p unsuccessful cardioversion and was managed on medical therapy. Patient underwent TAMIR and cardioversion on 01/28 had successful electrical cardioversion to sinus rhythm with left ventricular cavity dilated with severe impaired left ventricular systolic function, moderate degree of mitral regurgitation, mild degree of tricuspid regurgitation. Echocardiogram reveals ejection fraction less than 20% , moderate left ventricular hypertrophy, LA is severely dialted, and moderate pericaridal effusion. 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 He has seen vascular surgery in the past who has recommended conservative management for the above. Pericardial effusion documented on echocardiogram appears to be chronic secondary to viral infection. Patient was also noted to e hypotensive for which midodrine was iniitiated. He remains chronically anticoagulated with eliquis He presents to the emergency room secondary to elevated heart rate, and low blood pressure, weakness, dehydration, no fever no chills, no nausea no vomiting or diarrhea, patient has decreased appetite, patient also has dyspnea and exertion, no chest pain, patient has joint pains all over, broken sleep, patient denies any recent falls, and relies walker on community ambulation During that last admission Social work met with the patient's POA and can she do longer wants responsibility of being decision maker and is requesting public guardian. During his last admission 02/17/2018 He was also seen by psychiatry, as the patient had mentioned about suicidality, and he tried cutting himself with a butter knife and was unsuccessful in the doing this as the butter knife Cut through his deep in his skin. This did not require any surgical treatment on his last admission. Patient has been depressed lately, and had mentioned this to a hospital nurse today about his depression and had mentioned about his suicidal ideation and intention, however on my interrogation Patient denies any active thoughts of suicidality, and no intention of self-harm or harm to others. In this regard, we are going to get psychiatric evaluation as well In the emergency room, troponins are negative 3, TSH is 8.160, urinalysis shows WBC of 15, +1 protein, RBC 1, creatinine of 1.07, phosphorus elevated 4.8 , INR of 1.6 and myoglobin 13 EKG shows supraventricular tachycardia heart rate of 136, T wave abnormality possibility of inferolateral ischemia chest x-ray shows bilateral pleural effusion, compared to previous study O2 at 94% on 3 L nasal cannula, blood pressure 110/70 Review of Systems Constitutional: Reports as per HPI, Reports fatigue, Reports weight gain, Denies anorexia, Denies chills, Denies chronic headaches, Denies chronic pain, Denies daytime sleepiness, Denies fever, Denies lethargy, Denies malaise, Denies night sweats, Denies poor appetite, Denies sweats, Denies weakness, Denies weight loss Eyes: right diplopia Ears, nose, mouth and throat: Denies as per HPI, Denies ant. neck pain, Denies bleeding gums, Denies dental pain, Denies dysphagia, Denies epistaxis, Denies headache, Denies hoarseness, Denies mouth pain, Denies nasal congestion, Denies nasal discharge, Denies neck fullness/pressure, Denies neck lump, Denies nose pain, Denies odynophagia, Denies post-nasal drip, Denies sinus pain, Denies sinus pressure, Denies swelling in mouth, Denies swelling in throat, Denies sore throat, Denies vertigo, Denies voice changes Cardiovascular: Reports as per HPI, Reports dyspnea on exertion, Reports irregular heart beat, Reports paroxysmal nocturnal dyspnea, Reports shortness of breath Respiratory: Reports as per HPI, Reports cough, Reports cough with sputum, Denies congestion, Denies dyspnea, Denies excessive sputum, Denies hemoptysis, Denies home oxygen, Denies pain, Denies pain on inspiration, Denies pleurisy, Denies respiratory infections, Denies sleep apnea, Denies snoring, Denies wheezing Gastrointestinal: Reports as per HPI, Denies abdominal pain, Denies belching, Denies bloating, Denies BRBPR, Denies change in bowel habits, Denies coffee ground emesis, Denies constipation, Denies diarrhea, Denies dyspepsia, Denies early satiety, Denies excessive gas, Denies heartburn, Denies hematemesis, Denies hematochezia, Denies indigestion, Denies jaundice, Denies lactose intolerance, Denies loss of appetite, Denies melena, Denies nausea, Denies vomiting Genitourinary: Reports as per HPI, Denies decreased libido, Denies difficulties fathering child, Denies discharge, Denies dysuria, Denies erectile dysfunction, Denies flank pain, Denies genital pain, Denies genital sores, Denies hematuria, Denies impotence, Denies incontinence, Denies kidney stones, Denies nocturia, Denies polyuria, Denies testicular lump, Denies testicular pain, Denies urinary frequency, Denies urinary hesitancy, Denies urinary retention Musculoskeletal: Reports as per HPI, Denies arm numbness/tingling, Denies atrophy, Denies fractures, Denies frequent falls, Denies gait dysfunction, Denies hot joints, Denies leg numbness/tingling, Denies limitation of motion, Denies loss of height, Denies low back pain, Denies morning stiffness, Denies muscle cramps, Denies muscle weakness, Denies myalgias, Denies neck pain, Denies neck stiffness, Denies prior amputations, Denies redness of joints, Denies shooting arm pain, Denies shooting leg pain Integumentary: Reports as per HPI, Denies acne, Denies boils, Denies brittle nails, Denies change in hair/nails, Denies color changes, Denies darkening of skin, Denies depigmentation, Denies dryness, Denies foot/leg ulcers, Denies growths, Denies hirsutism, Denies lesions, Denies onychomycosis, Denies pruritus , Denies rash, Denies sores, Denies striae, Denies unusual bruising, Denies wounds Neurological: Reports as per HPI Psychiatric: Reports as per HPI, Reports depression, Reports sleep disturbances , Reports suicidal ideation (short lived with thoughts of trying to cut self with butter knife last month but nursing staff concerned about suicidal thoughts ), Denies anhedonia, Denies anxiety, Denies anxiety attacks, Denies change in appetite, Denies change in libido, Denies change in sleep habits, Denies confusion, Denies difficulty concentrating, Denies disorientation, Denies hallucinations, Denies hopelessness, Denies hypersomnia, Denies insomnia, Denies irritability, Denies memory loss, Denies mood swings, Denies paranoia, Denies sadness/tearfulness Endocrine: Reports as per HPI, Denies cold intolerance, Denies deepening of the voice, Denies excessive sweating, Denies excessive thirst, Denies fatigue, Denies flushing, Denies heat intolerance, Denies high blood sugars, Denies increase in ring/shoe/hat size, Denies low blood sugars, Denies nocturia, Denies palpitations, Denies polydipsia, Denies polyphagia, Denies polyuria, Denies proptosis, Denies recent glucocorticoid use, Denies thyroid mass, Denies weight change Hematologic/Lymphatic: Reports as per HPI Allergic/Immunologic: Reports as per HPI, Denies allergic rhinitis, Denies anaphylaxis, Denies angioedema, Denies gluten intolerance, Denies persistent infections, Denies seasonal allergies, Denies urticaria, Denies wheezing Past Medical History Past Medical History: Atrial Flutter, Heart Failure, COPD, CVA/TIA, Hearing Disorder / Deafness, Hypertension, Prostate Disorder History of Any Multi-Drug Resistant Organisms: None Reported Past Surgical History: Back Surgery Additional Past Surgical History / Comment(s): carotid endardectomy Past Anesthesia/Blood Transfusion Reactions: No Reported Reaction Past Psychological History: No Psychological Hx Reported Smoking Status: Former smoker Past Alcohol Use History: None Reported Past Drug Use History: None Reported - Past Family History Father Additional Family Medical History / Comment(s): father at the age of 70, sudden unclear etiology Mother Additional Family Medical History / Comment(s): mother of old age. Patient has no siblings patient has a power of collections attorney who does not live with him. Medications and Allergies Home Medications Medication Instructions Recorded Confirmed Type Aspirin 81 mg PO DAILY@0800 01/25/18 03/07/18 History ALPRAZolam [Xanax] 0.25 mg PO BID PRN #14 tab 02/24/18 03/07/18 Rx Acetaminophen Tab [Tylenol Tab] 650 mg PO Q4H PRN 03/01/18 03/07/18 History Apixaban [Eliquis] 5 mg PO BID@08,199903/01/18 03/07/18 History Atorvastatin Calcium [Lipitor] 40 mg PO HS@199903/01/18 03/07/18 History Ciprofloxacin HCl [Cipro] 500 mg PO BID 5 Days #10 tab 03/01/18 03/07/18 Rx Metoprolol Tartrate [Lopressor] 12.5 mg PO BID@08,199903/01/18 03/07/18 History Midodrine HCl [ProAmatine] 10 mg PO TID@,,03/01/18 03/07/18 History Montelukast Sodium [Singulair] 10 mg PO HS@199903/01/18 03/07/18 History Nitroglycerin Sl Tabs [Nitrostat] 0.4 mg SUBLINGUAL Q5M PRN 03/01/18 03/07/18 History Sennosides-Docusate Sodium 1 tab PO BID@0800,199903/01/18 03/07/18 History [Senokot-S] Spironolactone [Aldactone] 12.5 mg PO DAILY@79903/01/18 03/07/18 History Albuterol Nebulized (Conc) 2.5 mg INHALATION RT-QID PRN 03/07/18 03/07/18 History [Ventolin Nebulized (Conc)] Finasteride [Proscar] 5 mg PO DAILY@79903/07/18 03/07/18 History Tamsulosin HCl [Flomax] 0.4 mg PO DAILY@0803/07/18 03/07/18 History Allergies Allergy/AdvReac Type Severity Reaction Status Date / Time venom-honey bee Allergy Anaphylaxis Verified 03/07/18 18:51 Physical Exam Vitals: Vital Signs Temp Pulse Pulse Resp BP BP BP 03/08/18 07:59 03/08/18 06:40 97/56 03/08/18 05:45 136 H 99/66 03/08/18 05:30 131 H 104/60 03/08/18 05:15 140 H 99/71 03/08/18 03:30 98.3 F 141 H 18 107/64 03/08/18 02:00 104/70 03/08/18 01:30 98/59 03/08/18 01:15 115/50 03/08/18 00:50 103/67 03/07/18 23:30 97.0 F L 135 H 18 89/50 03/07/18 21:20 137 H 18 03/07/18 21:18 97.1 F L 137 H 18 94/55 03/07/18 20:42 139 H 14 112/88 03/07/18 20:13 138 H 16 113/85 03/07/18 20:02 135 H 14 113/85 03/07/18 19:08 137 H 16 108/80 03/07/18 18:25 136 H 16 103/81 03/07/18 17:09 97.5 F L 136 H 18 109/76 Pulse Ox 03/08/18 07:59 92 L 03/08/18 06:40 03/08/18 05:45 03/08/18 05:30 03/08/18 05:15 03/08/18 03:30 93 L 03/08/18 02:00 03/08/18 01:30 03/08/18 01:15 03/08/18 00:50 03/07/18 23:30 94 L 03/07/18 21:20 03/07/18 21:18 95 03/07/18 20:42 94 L 03/07/18 20:13 93 L 03/07/18 20:02 03/07/18 19:08 96 03/07/18 18:25 95 03/07/18 17:09 95 Intake and Output 03/07/18 03/08/18 03/08/18 22:59 06:59 14:59 Intake Total 340.667 240 Output Total 200 Balance 140.667 240 Intake: Intake, IV Titration 40.667 Amount Diltiazem 50 mg In Sodium 40.667 Chloride 0.9% 40 ml @ 5 MG/HR 5 mls/hr IV .Q10H [facility] Rx#:[id number] Oral 300 240 Output: Urine 200 Other: Voiding Method Toilet Toilet # Voids 1 0 Weight 85.5 kg 85.5 kg - Constitutional General appearance: cooperative, no acute distress - EENT Eyes: anicteric sclerae, EOMI, dentition normal ENT: NA/AT, normal oropharynx - Neck Neck: normal ROM - Cardiovascular Rhythm: regular Heart sounds: normal: S1, S2 Abnormal Heart Sounds: no systolic murmur, no diastolic murmur, no rub, no S3 Gallop, no S4 Gallop, no click, no other - Gastrointestinal General gastrointestinal: normal bowel sounds, soft - Integumentary Integumentary: decreased turgor, normal - Neurologic Neurologic: CNII-XII intact - Musculoskeletal Musculoskeletal: gait normal, generalized weakness, strength equal bilaterally - Psychiatric Psychiatric: A&O x's 3, appropriate affect, intact judgment & insight Results CBC & Chem 7: 03/07/18 17:07 03/07/18 17:07 Labs: Abnormal Lab Results - Last 24 Hours (Table) 03/07/18 03/07/18 03/07/18 Range/Units 17:07 17:07 17:07 RDW 17.4 H (11.5-15.5) % PT (9.0-12.0) sec INR (<1.2) Sodium 133 L (137-145) mmol/L Chloride 96 L (98-107) mmol/L Phosphorus 4.8 H (2.5-4.5) mg/dL ALT 99 H (21-72) U/L Total Creatine Kinase (55-170) U/L CK-MB (CK-2) 3.2 H* (0.0-2.4) ng/mL HDL Cholesterol (40-60) mg/dL TSH 8.270 H (0.465-4.680) mIU/L 03/07/18 03/07/18 03/08/18 Range/Units 17:07 23:32 05:51 RDW (11.5-15.5) % PT 14.9 H (9.0-12.0) sec INR 1.6 H (<1.2) Sodium (137-145) mmol/L Chloride (98-107) mmol/L Phosphorus (2.5-4.5) mg/dL ALT (21-72) U/L Total Creatine Kinase 46 L (55-170) U/L CK-MB (CK-2) 2.8 H* 3.3 H* (0.0-2.4) ng/mL HDL Cholesterol (40-60) mg/dL TSH (0.465-4.680) mIU/L 03/08/18 Range/Units 05:51 RDW (11.5-15.5) % PT (9.0-12.0) sec INR (<1.2) Sodium (137-145) mmol/L Chloride (98-107) mmol/L Phosphorus (2.5-4.5) mg/dL ALT (21-72) U/L Total Creatine Kinase (55-170) U/L CK-MB (CK-2) (0.0-2.4) ng/mL HDL Cholesterol 32 L (40-60) mg/dL TSH (0.465-4.680) mIU/L Laboratory Results WBC 8.2 k/uL (3.8-10.6) 03/07/18 17:07 RBC 4.85 m/uL (4.30-5.90) 03/07/18 17:07 Hgb 13.0 gm/dL (13.0-17.5) 03/07/18 17:07 Hct 40.9 % (39.0-53.0) 03/07/18 17:07 MCV 84.4 fL (80.0-100.0) 03/07/18 17:07 MCH 26.8 pg (25.0-35.0) 03/07/18 17:07 MCHC 31.8 g/dL (31.0-37.0) 03/07/18 17:07 RDW 17.4 % (11.5-15.5) H 03/07/18 17:07 Plt Count k/uL (150-450) 03/07/18 17:07 Neutrophils % (Manual) 59 % 03/07/18 17:07 Lymphocytes % (Manual) 38 % 03/07/18 17:07 Monocytes % (Manual) 2 % 03/07/18 17:07 Eosinophils % (Manual) 1 % 03/07/18 17:07 Neutrophils # (Manual) 4.84 k/uL (1.3-7.7) 03/07/18 17:07 Lymphocytes # (Manual) 3.12 k/uL (1.0-4.8) 03/07/18 17:07 Monocytes # (Manual) 0.16 k/uL (0-1.0) 03/07/18 17:07 Eosinophils # (Manual) 0.08 k/uL (0-0.7) 03/07/18 17:07 Nucleated RBCs 0 /100 WBC (0-0) 03/07/18 17:07 Manual Slide Review Performed 03/07/18 17:07 Polychromasia Present 03/07/18 17:07 Hypochromasia Moderate 03/07/18 17:07 Poikilocytosis Slight 03/07/18 17:07 Anisocytosis Slight 03/07/18 17:07 PT 14.9 sec (9.0-12.0) H 03/07/18 17:07 INR 1.6 (<1.2) H 03/07/18 17:07 APTT 24.2 sec (22.0-30.0) 03/07/18 17:07 Sodium 133 mmol/L (137-145) L 03/07/18 17:07 Potassium 5.0 mmol/L (3.5-5.1) 03/07/18 17:07 Chloride 96 mmol/L (98-107) L 03/07/18 17:07 Carbon Dioxide 23 mmol/L (22-30) 03/07/18 17:07 Anion Gap 14 mmol/L 03/07/18 17:07 BUN 16 mg/dL (9-20) 03/07/18 17:07 Creatinine 1.07 mg/dL (0.66-1.25) 03/07/18 17:07 Est GFR (CKD-EPI)AfAm 80 (>60 ml/min/1.73 sqM) 03/07/18 17:07 Est GFR (CKD-EPI)NonAf 69 (>60 ml/min/1.73 sqM) 03/07/18 17:07 Glucose 91 mg/dL (74-99) 03/07/18 17:07 Plasma Lactic Acid Maxime 1.9 mmol/L (0.7-2.0) 03/08/18 10:26 Calcium 9.1 mg/dL (8.4-10.2) 03/07/18 17:07 Phosphorus 4.8 mg/dL (2.5-4.5) H 03/07/18 17:07 Magnesium 2.0 mg/dL (1.6-2.3) 03/07/18 17:07 Total Bilirubin 0.7 mg/dL (0.2-1.3) 03/07/18 17:07 AST 51 U/L (17-59) 03/07/18 17:07 ALT 99 U/L (21-72) H 03/07/18 17:07 Alkaline Phosphatase 99 U/L (38-126) 03/07/18 17:07 Total Creatine Kinase 61 U/L (55-170) 03/08/18 05:51 CK-MB (CK-2) 3.3 ng/mL (0.0-2.4) H* 03/08/18 05:51 CK-MB (CK-2) Rel Index 5.4 03/08/18 05:51 Troponin I 0.019 ng/mL (0.000-0.034) 03/08/18 05:51 Total Protein 6.5 g/dL (6.3-8.2) 03/07/18 17:07 Albumin 3.7 g/dL (3.5-5.0) 03/07/18 17:07 Triglycerides 73 mg/dL (<150) 03/08/18 05:51 Cholesterol 91 mg/dL (<200) 03/08/18 05:51 LDL Cholesterol, Calc 44 mg/dL (0-99) 03/08/18 05:51 HDL Cholesterol 32 mg/dL (40-60) L 03/08/18 05:51 TSH 8.160 mIU/L (0.465-4.680) H 03/07/18 17:07 Free T4 1.37 ng/dL (0.78-2.19) 03/07/18 17:07 Urine Color Yellow 03/08/18 16:42 Urine Appearance Clear (Clear) 03/08/18 16:42 Urine pH 5.5 (5.0-8.0) 03/08/18 16:42 Ur Specific [place] 1.019 (1.001-1.035) 03/08/18 16:42 Urine Protein 1+ (Negative) H 03/08/18 16:42 Urine Glucose (UA) Negative (Negative) 03/08/18 16:42 Urine Ketones Negative (Negative) 03/08/18 16:42 Urine Blood Negative (Negative) 03/08/18 16:42 Urine Nitrite Negative (Negative) 03/08/18 16:42 Urine Bilirubin Negative (Negative) 03/08/18 16:42 Urine Urobilinogen <2.0 mg/dL (<2.0) 03/08/18 16:42 Ur Leukocyte Esterase Negative (Negative) 03/08/18 16:42 Urine RBC 1 /hpf (0-5) 03/08/18 16:42 Urine WBC 15 /hpf (0-5) H 03/08/18 16:42 Ur Squamous Epith Cells <1 /hpf (0-4) 03/08/18 16:42 Hyaline Casts 24 /lpf (0-2) H 03/08/18 16:42 Urine Mucus Occasional /hpf (None) H 03/08/18 16:42 Thrombosis Risk Factor Assmnt - DVT/VTE Prophylaxis DVT/VTE Prophylaxis: Pharmacologic Prophylaxis ordered, Mechanical Prophylaxis ordered - Choose All That Apply Any of the Below Risk Factors Present?: Yes Each Factor Represents 1 point: Abnormal pulmonary function (COPD), Heart failure (<1month), Serious lung disease incl. pneumonia (< 1month), Swollen legs (current) Other Risk Factors: Yes Each Risk Factor Represents 2 Points: Age 61-74 years Other congenital or acquired thrombophilia - If yes, enter type in comment: No Thrombosis Risk Factor Assessment Total Risk Factor Score: 6 Thrombosis Risk Factor Assessment Level: High Risk Assessment and Plan Plan: 3 recurrent atrial flutter with rapid ventricular rate s/p cardioversion with episode of A. fib with RVR- Patient underwent previous cardioversion to sinus rhythm 0n 01/[address] Byers planned to repeat cardioversion but patient refused Amiodarone continued, continue Lopressor 12.5 mg twice daily, eliquis 5 mg twice a day. 2. Acute Chronic systolic heart failure. Previous echo was normal, there is reduction in ejection fraction in this admission with an EF <20%. TAMIR shows severe cardiomyopathy with moderate pericardial effusion which is likely chronic. Cardiology is following. Spironolactone and losartan will be discontinued and metoprolol decreased 12.5 mg twice daily. Amiodarone discontinued by cardiology 3 orthostatic hypotention currently asymptomatic however with atrial flutter hemodynamic instability can occur, we'll going to control heart rate, continue on Midodrine 10mg tid. Spironolactone at metoprolol 12.5 mg twice a day, patient is not on an Bruce or arB pain inhibitors and metoprolol to 12.5 mg twice daily. We will check orthostasis while in hospital If patient decompensates further, Flomax will be discontinued 4. Hypertension, currently normotensive patient currently is inspiratory 12.5 mg daily, metoprolol 12.5 mg twice a day, patient is not on any Bruce or arm pain inhibitors secondary to marginally low BP 5. Recurrent depression-, previous report of suicidal ideation with intention last admission,has given us a report however with my interview today, patient declined and denies any active suicidality or active suicide suicidal intention , a second opinion with psychiatry consult at this time patient can benefit from either mood lifters including Wellbutrin which we'll going to initiate, continue Xanax twice a day when necessary 6 Urinary retention with BPH- Continue Flomax 7history of TIA/stroke- continue eliquis 8 nystagmus- meclizine 12.5 mg 2 times a day when necessary dizziness 9 history of vertebral stenosis, 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 Follows with Dr. Kennedy. Patient also follow Dr. Jones who recommended conservative management 10 Pericardial effusion, moderate, no plans for surgical intervention 11 mild protein calorie malnutrition, patient has diminished appetite, nutritional supplementation are requested 12 CKD stage II, stable 13 BPH on flomax and finesteride 14. Chronic anticoagulation with Ahlquist secondary to A. fib/A flutter 15. Transaminitis, currently asymptomatic ALT at 99, normal alkaline phosphatase 16. New Clinical hypothyroidism, TSH elevated at 8, levothyroxine 50 g to be started 17 Coronary artery calcifications/CAD GI prophylaxis Pepcid 20 mg po twice a day DVT prophylaxis on eliquis code status no code
[2018-03-08] MEDS: ACETAMINOPHEN TAB 325 MG TAB PO PRN (22:49)
[2018-03-09] MEDS: SODIUM CHLORIDE 0.9% 1,000 ML IV SCH ×2 (06:02→14:34)
[2018-03-09] MEDS: LEVOTHYROXINE 50 MCG TAB PO SCH (06:31)
[2018-03-09] MEDS: MIDODRINE 5 MG TAB PO SCH ×3 (06:31→17:24)
[2018-03-09 07:18] LABS: Calcium 8.6 mg/dL (8.4-10.2); Potassium 5.1 mmol/L (3.5-5.1)
[2018-03-09] MEDS: METOPROLOL TARTRATE 50 MG TAB PO SCH ×2 (09:14→22:32)
[2018-03-09] MEDS: NICOTINE 14MG/24HR PATCH TRANSDERM SCH (09:14)
[2018-03-09] MEDS: SENNOSIDES-DOCUSATE SODIUM 1 EACH TAB PO SCH ×2 (09:15→22:32)
[2018-03-09] MEDS: AMIODARONE 200 MG TAB PO SCH ×2 (09:15→22:32)
[2018-03-09] MEDS: FINASTERIDE 5 MG TAB PO SCH (09:15)
[2018-03-09] MEDS: APIXABAN 5 MG TAB PO SCH ×2 (09:15→22:31)
[2018-03-09] MEDS: ASPIRIN 81 MG PO SCH (09:15)
[2018-03-09] MEDS: buPROPion XL 150 MG TAB.ER.24H PO SCH (09:16)
[2018-03-09] MEDS: TAMSULOSIN 0.4 MG CAP.ER.24H PO SCH (09:16)
[2018-03-09] MEDS: SPIRONOLACTONE 25 MG TAB PO SCH (10:05)
--- NOTE | 2018-03-09 14:59 | P.PN ---
Subjective This is a 72 years old male patient of Dr. Metz with past medical history of hypertension, recent stroke 3 months ago with multiple admissions over the past several months, his most recent one was 02/17/2018, till 2017. During the last admission, he was admitted secondary to acute on chronic systolic diastolic heart failure, mixed type also required another cardioversion at that time. He was discharged to [facility] after a lengthy admission from our facility. He was seen by Dr. Sneed during the last admission 02/17/2018, atrial flutter s/p unsuccessful cardioversion and was managed on medical therapy. Patient underwent TAMIR and cardioversion on 01/28 had successful electrical cardioversion to sinus rhythm with left ventricular cavity dilated with severe impaired left ventricular systolic function, moderate degree of mitral regurgitation, mild degree of tricuspid regurgitation. Echocardiogram reveals ejection fraction less than 20% , moderate left ventricular hypertrophy, LA is severely dialted, and moderate pericaridal effusion. 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 He has seen vascular surgery in the past who has recommended conservative management for the above. Pericardial effusion documented on echocardiogram appears to be chronic secondary to viral infection. Patient was also noted to have hypotension for which midodrine was initiated. He remains chronically anticoagulated with eliquis. He presents to the emergency room secondary to elevated heart rate, and low blood pressure, weakness, dehydration, no fever no chills, no nausea no vomiting or diarrhea, patient has decreased appetite, patient also has dyspnea and exertion, no chest pain, patient has joint pains all over, broken sleep, patient denies any recent falls, and relies walker on community ambulation. During that last admission Social work met with the patient's POA and can she do longer wants responsibility of being decision maker and is requesting public guardian. During his last admission 02/17/2018 He was also seen by psychiatry, as the patient had mentioned about suicidality, and he tried cutting himself with a butter knife and was unsuccessful in doing this as the butter knife Cut through his deep in his skin. This did not require any surgical treatment on his last admission. Patient has been depressed lately, and had mentioned this to a hospital nurse today about his depression and had mentioned about his suicidal ideation and intention, however on my interrogation Patient denies any active thoughts of suicidality, and no intention of self-harm or harm to others. In this regard, we are going to get psychiatric evaluation as well In the emergency room, troponins are negative 3, TSH is 8.160, urinalysis shows WBC of 15, +1 protein, RBC 1, creatinine of 1.07, phosphorus elevated 4.8 , INR of 1.6 and myoglobin 13 EKG shows supraventricular tachycardia heart rate of 136, T wave abnormality possibility of inferolateral ischemia chest x-ray shows bilateral pleural effusion, compared to previous study O2 at 94% on 3 L nasal cannula, blood pressure 110/70 03/09: The patient was evaluated, heart rate 114, he is hypotensive at 83/48. His also noted to be hypoxic 78% on room air, supplemental O2 3 L nasal cannula was placed he is now 90%, will repeat a chest x-ray. For hypotension will continue his midodrine 10 mg 3 times a day. According to nurse, she had taken the blood pressure before giving his Midodrine, repeat blood pressure 100/58. Will continue to monitor his blood pressure closely. Cardiology switched patient to oral amiodarone 200 mg twice a day. Patient was consulted by psychiatry, he was cleared from a psychiatric standpoint. Sitter at the bedside is discontinued. He was started on Wellbutrin 150 mg daily. Social work will be consulted regarding his guardianship issues. Objective - Vital Signs Vital signs: Vital Signs Temp 96.2 F L 03/09/18 11:20 Pulse 114 H 03/09/18 11:20 Resp 20 03/09/18 11:20 BP 83/48 03/09/18 11:20 Pulse Ox 90 L 03/09/18 11:20 Intake & Output 03/08/18 03/09/18 03/09/18 18:59 06:59 18:59 Intake Total 480 1590 240 Output Total 600 Balance -120 1590 240 Weight 87.8 kg Intake: Intake, IV Titration 1050 Amount Sodium Chloride 0.9% 1, 1050 000 ml @ 100 mls/hr IV . Q10H [facility] Rx#:[id number] Oral 480 540 240 Output: Urine 600 Other: Voiding Method Urinal Toilet Toilet Urinal Urinal # Voids 0 4 1 - Exam - Constitutional General appearance: cooperative, no acute distress - EENT Eyes: anicteric sclerae, EOMI, dentition normal ENT: NA/AT, normal oropharynx - Neck Neck: normal ROM - Cardiovascular Rhythm: regular Heart sounds: normal: S1, S2 Abnormal Heart Sounds: no systolic murmur, no diastolic murmur, no rub, no S3 Gallop, no S4 Gallop, no click, no other - Gastrointestinal General gastrointestinal: normal bowel sounds, soft - Integumentary Integumentary: decreased turgor, normal - Neurologic Neurologic: CNII-XII intact - Musculoskeletal Musculoskeletal: gait normal, generalized weakness, strength equal bilaterally - Psychiatric Psychiatric: A&O x's 3, appropriate affect, intact judgment & insight - Labs CBC & Chem 7: 03/07/18 17:07 03/09/18 06:15 Labs: Abnormal Lab Results - Last 24 Hours (Table) 03/08/18 03/09/18 Range/Units 16:42 06:15 Sodium 133 L (137-145) mmol/L Carbon Dioxide 16 L (22-30) mmol/L BUN 23 H (9-20) mg/dL Urine Protein 1+ H (Negative) Urine WBC 15 H (0-5) /hpf Hyaline Casts 24 H (0-2) /lpf Urine Mucus Occasional H (None) /hpf Microbiology - Last 24 Hours (Table) 03/08/18 16:42 Urine Culture - Preliminary Urine,Voided Assessment and Plan Plan: 1. recurrent atrial flutter with rapid ventricular rate s/p cardioversion with episode of A. fib with RVR- Patient underwent previous cardioversion to sinus rhythm 0n 01/[address] Sneed planned to repeat cardioversion but patient refused, Amiodarone switched to oral, continue Lopressor 50 mg twice daily, eliquis 5 mg twice a day. 2. Acute Chronic systolic heart failure. Previous echo was normal, there is reduction in ejection fraction on this admission with an EF <20%. TAMIR shows severe cardiomyopathy with moderate pericardial effusion which is likely chronic. Cardiology is following. losartan will be discontinued and metoprolol 50 mg twice daily. Amiodarone switched to oral. 3 Orthostatic hypotention with atrial flutter, hemodynamic instability can occur , we'll going to control heart rate, continue on Midodrine 10mg tid. Spironolactone at metoprolol 50 mg twice a day, patient is not on an Bruce or ARB. We will check orthostasis while in hospital If patient decompensates further, Flomax will be discontinued 4. Hypertension, currently normotensive patient currently on spironolactone 12.5 mg daily, metoprolol 12.5 mg twice a day, patient is not on any Bruce inhibitors secondary to marginally low BP 5. 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 Follows with Dr. Kennedy. Patient also follow Dr. Jones who recommended conservative management 10 Pericardial effusion, moderate, no plans for surgical intervention 11 mild protein calorie malnutrition, patient has diminished appetite, nutritional supplementation are requested 12 CKD stage II, stable 13 BPH on flomax and finesteride 14. Chronic anticoagulation with Eliquis secondary to A. fib/A flutter 15. Transaminitis, currently asymptomatic ALT at 99, normal alkaline phosphatase 16. New Clinical hypothyroidism, TSH elevated at 8, levothyroxine 50 g to be started 17 Coronary artery calcifications/CAD GI prophylaxis Pepcid 20 mg po twice a day DVT prophylaxis on eliquis code status no code The above impression and plan of care have been discussed and directed by signing physician. Jocelyne Khan nurse practitioner acting as scribe for signing physician.
--- NOTE | 2018-03-09 15:02 | XR ---
EXAMINATION TYPE: XR chest 1V DATE OF EXAM: 03/09/2018 COMPARISON: 03/07/2018 HISTORY: 73-year-old male hypoxia and shortness of breath TECHNIQUE: Single frontal view of the chest is obtained. FINDINGS: Heart mildly enlarged. Atherosclerotic arch calcifications. Streaky perihilar densities. There are sm all pleural effusions with a bibasilar opacities. Loose bodies collected in the left subcoracoid rece ss. Hazy densities at the lung bases are slightly increased from prior. IMPRESSION: 1. Correlate for CHF and pulmonary vascular congestion. 2. Small pleural effusions with bibasilar atelectasis and/or consolidation are slightly increased.
--- NOTE | 2018-03-09 15:06 | P.PN ---
Subjective Progress Note Date: 03/09/18 This is a pleasant 73-year-old gentleman who follows regularly with Dr. Nicky Rogers in the office. He has a known history of hypertension, atrial fibrillation/flutter with prior failed cardioversion, chronic persistent, on Eliquis for anticoagulation, prior CVA, COPD, chronic tobacco use. He states that he has visiting nurses come to his home, yesterday on her visit they noted that his heart was racing quite fast, for this reason the advised that he come to the hospital for admission. Patient denies any palpitations or feeling his heart racing fast, he states that he was no more short of breath and what his usual is, denies any dizziness or lightheadedness. EKG on presentation here showed atrial flutter with a rapid ventricular response. Patient was initiated on IV Cardizem, rate continued to be in the 140 range, IV Cardizem was discontinued and patient was initiated on IV amiodarone. He continues to be in atrial flutter this morning with a heart rate now in the 1 teens. Chest x-ray on admission showed small bilateral pleural effusions as compared with prior study. Blood pressure on admission 110/70 on a blood pressure this morning 110/ 60. 94% on 3 L of oxygen. White blood cell count is normal, hemoglobin 13, platelet count pending. Sodium 133, potassium 5.0, BUN 16, creatinine 1.0. Magnesium level 2.0. TSH 8.2. Troponins 0.017, 0.016, 0.019. His home medications include Proscar 5 mg daily, Flomax 0.4 mg daily, Aldactone 12-1/2 mg daily, metoprolol 12-1/2 mg twice a day, aspirin 81 mg daily, Eliquis 5 mg one tablet by mouth twice a day. At the time of my examination this morning, patient denies any palpitations or heart racing, no dizziness or lightheadedness. He does appear mildly short of breath, but states he feels like his usual, he does have a cough, nonproductive. 03/09/2018 Patient seen and examined this morning, much less wheezy today, continues to have rhonchi throughout. Patient states he is coughing more today. Echocardiogram with Doppler study was performed which revealed an ejection fraction of 20-25%. The LAD is severely dilated. Blood pressure 100/50 with a heart rate in the 90s. 98% on 3 L of oxygen. was receiving IV fluids at 100 an hour which we will decrease to KVO. We will continue amiodarone, Lipitor , aspirin baby, metoprolol 50 mg twice a day, Aldactone a half milligrams daily , monitoring lytes BUN and creatinine daily. If blood pressure tolerates we will consider the addition of an ELIZABET inhibitor. Objective - Vital Signs Vital signs: Vital Signs Temp 97.2 F L 03/09/18 14:33 Pulse 113 H 03/09/18 14:33 Resp 20 03/09/18 14:33 BP 100/58 03/09/18 14:33 Pulse Ox 98 03/09/18 14:33 Intake & Output 03/08/18 03/09/18 03/09/18 18:59 06:59 18:59 Intake Total 480 1590 480 Output Total 600 Balance -120 1590 480 Weight 87.8 kg Intake: Intake, IV Titration 1050 Amount Sodium Chloride 0.9% 1, 1050 000 ml @ 100 mls/hr IV . Q10H [facility] [place] Rx#:[id number] Oral 480 540 480 Output: Urine 600 Other: Voiding Method Urinal Toilet Toilet Urinal Urinal # Voids 0 4 1 - Exam PHYSICAL EXAMINATION: HEENT: Head is atraumatic, normocephalic. Pupils equal, round. Neck is supple. There is no elevated jugular venous pressure. HEART EXAMINATION: Heart S1 and S2 irregularly irregular CHEST EXAMINATION: Lungs reveal diminished air entry to bilateral bases with coarse rhonchi throughout. ABDOMEN: Soft, nontender. Bowel sounds are heard. No organomegaly noted. EXTREMITIES: 2+ peripheral pulses with no evidence of peripheral edema and no calf tenderness noted. NEUROLOGIC [patient is awake, alert and oriented -3.] - Labs CBC & Chem 7: 03/07/18 17:07 03/09/18 06:15 Labs: Abnormal Lab Results - Last 24 Hours (Table) 03/08/18 03/09/18 Range/Units 16:42 06:15 Sodium 133 L (137-145) mmol/L Carbon Dioxide 16 L (22-30) mmol/L BUN 23 H (9-20) mg/dL Urine Protein 1+ H (Negative) Urine WBC 15 H (0-5) /hpf Hyaline Casts 24 H (0-2) /lpf Urine Mucus Occasional H (None) /hpf Microbiology - Last 24 Hours (Table) 03/08/18 16:42 Urine Culture - Preliminary Urine,Voided Assessment and Plan Plan: Assessment and plan #1 atrial flutter with rapid ventricular response, patient currently on PO amiodarone #2 history of true flutter status post cardioversion, returned back to A. fib #3 prior CVA #4 nicotine dependence #5 hypertension #6 hyperlipidemia #7 history of orthostatic hypotension, on midodrine Plan Echoardiogram with Doppler study reveals an ejection fraction of 20-25%. We will decrease the IV fluids to KVO. Continue beta nubia, amiodarone, Lipitor , aspirin, Aldactone 12-1/2 mg daily, if the blood pressure tolerates consider the addition of an ELIZABET inhibitor. Check lytes BUN and creatinine in the morning. DNP note has been reviewed, I agree with a documented findings and plan of care. Patient was seen and examined.
[2018-03-09] MEDS: ACETAMINOPHEN TAB 325 MG TAB PO PRN (22:30)
[2018-03-09] MEDS: MONTELUKAST 10 MG TAB PO SCH (22:32)
[2018-03-09] MEDS: ATORVASTATIN 40 MG TAB PO SCH (22:32)
[2018-03-10] MEDS: MIDODRINE 5 MG TAB PO SCH ×4 (06:32→17:22)
[2018-03-10] MEDS: LEVOTHYROXINE 50 MCG TAB PO SCH (06:33)
[2018-03-10] MEDS: APIXABAN 5 MG TAB PO SCH ×2 (10:22→22:02)
[2018-03-10] MEDS: METOPROLOL TARTRATE 50 MG TAB PO SCH ×2 (10:23→22:02)
[2018-03-10] MEDS: NICOTINE 14MG/24HR PATCH TRANSDERM SCH (10:23)
[2018-03-10] MEDS: TAMSULOSIN 0.4 MG CAP.ER.24H PO SCH (10:23)
[2018-03-10] MEDS: ASPIRIN 81 MG PO SCH (10:23)
[2018-03-10] MEDS: SENNOSIDES-DOCUSATE SODIUM 1 EACH TAB PO SCH ×2 (10:23→22:02)
[2018-03-10] MEDS: FINASTERIDE 5 MG TAB PO SCH (10:24)
[2018-03-10] MEDS: AMIODARONE 200 MG TAB PO SCH ×2 (10:24→22:02)
[2018-03-10] MEDS: buPROPion XL 150 MG TAB.ER.24H PO SCH (10:24)
[2018-03-10] MEDS: SPIRONOLACTONE 25 MG TAB PO SCH (10:25)
--- NOTE | 2018-03-10 14:04 | PN ---
PROGRESS NOTE Mr. Allen is a 73-year-old male with a history of cardiomyopathy, history of atrial fibrillation-flutter. He is feeling better today. He has a known history of orthostatic hypotension. He denies any symptoms of chest pain. He denies any dizziness. He feels stronger. His echocardiogram revealed a severely impaired systolic function. He continues to be at this time on amiodarone 200 mg twice a day, Eliquis 5 mg twice a day, aspirin 81 mg daily, metoprolol tartrate 50 mg twice a day, spironolactone 12.5 mg daily. PHYSICAL EXAMINATION: Blood pressure running in the 80s and 90s with a heart rate in the 110s. LUNGS: Clear. HEART: Irregular, regular S1, S2. No S3. No rub. ABDOMEN: Soft, nontender. EXTREMITIES: No edema. LAB DATA: Revealed BUN and creatinine 33 and 1.13, potassium 5.1. IMPRESSION: 1. Atrial fibrillation-flutter; persistent rate under better control, anticoagulated. 2. Cardiomyopathy documented in the past. 3. Orthostatic hypotension with autonomic dysfunction. RECOMMENDATION: From the cardiac standpoint,will continue on the present medical regimen. Continue on the anticoagulation. Once he is stable, he will follow up with Dr. Sneed to see if he is a candidate for ablation. MMODL / IJN: [id number] /
[2018-03-10] MEDS: MONTELUKAST 10 MG TAB PO SCH (22:02)
[2018-03-10] MEDS: ATORVASTATIN 40 MG TAB PO SCH (22:02)
[2018-03-11] MEDS: SPIRONOLACTONE 25 MG TAB PO SCH (08:17)
[2018-03-11] MEDS: MIDODRINE 5 MG TAB PO SCH ×4 (08:17→21:40)
[2018-03-11] MEDS: APIXABAN 5 MG TAB PO SCH ×2 (08:18→21:38)
[2018-03-11] MEDS: LEVOTHYROXINE 50 MCG TAB PO SCH (08:18)
[2018-03-11] MEDS: SENNOSIDES-DOCUSATE SODIUM 1 EACH TAB PO SCH ×2 (08:18→21:39)
[2018-03-11] MEDS: AMIODARONE 200 MG TAB PO SCH ×2 (08:18→21:39)
[2018-03-11] MEDS: METOPROLOL TARTRATE 50 MG TAB PO SCH ×2 (08:18→21:39)
[2018-03-11] MEDS: ASPIRIN 81 MG PO SCH (08:18)
[2018-03-11] MEDS: NICOTINE 14MG/24HR PATCH TRANSDERM SCH (08:18)
[2018-03-11] MEDS: buPROPion XL 150 MG TAB.ER.24H PO SCH (08:18)
--- NOTE | 2018-03-11 11:36 | P.PN ---
Subjective Progress Note Date: 03/10/18 This is a 73 years old male patient of Dr. Metz with past medical history of hypertension, recent stroke 3 months ago with multiple admissions over the past several months, his most recent one was 02/17/2018, till 2017. During the last admission, he was admitted secondary to acute on chronic systolic diastolic heart failure, mixed type also required another cardioversion at that time. He was discharged to [facility] after a lengthy admission from our facility. He was seen by Dr. Sneed during the last admission 02/17/2018, atrial flutter s/p unsuccessful cardioversion and was managed on medical therapy. Patient underwent TAMIR and cardioversion on 01/28 had successful electrical cardioversion to sinus rhythm with left ventricular cavity dilated with severe impaired left ventricular systolic function, moderate degree of mitral regurgitation, mild degree of tricuspid regurgitation. Echocardiogram reveals ejection fraction less than 20% , moderate left ventricular hypertrophy, LA is severely dialted, and moderate pericaridal effusion. 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 He has seen vascular surgery in the past who has recommended conservative management for the above. Pericardial effusion documented on echocardiogram appears to be chronic secondary to viral infection. Patient was also noted to have hypotension for which midodrine was initiated. He remains chronically anticoagulated with eliquis. He presents to the emergency room secondary to elevated heart rate, and low blood pressure, weakness, dehydration, no fever no chills, no nausea no vomiting or diarrhea, patient has decreased appetite, patient also has dyspnea and exertion, no chest pain, patient has joint pains all over, broken sleep, patient denies any recent falls, and relies walker on community ambulation. During that last admission Social work met with the patient's POA and can she do longer wants responsibility of being decision maker and is requesting public guardian. During his last admission 02/17/2018 He was also seen by psychiatry, as the patient had mentioned about suicidality, and he tried cutting himself with a butter knife and was unsuccessful in doing this as the butter knife Cut through his deep in his skin. This did not require any surgical treatment on his last admission. Patient has been depressed lately, and had mentioned this to a hospital nurse today about his depression and had mentioned about his suicidal ideation and intention, however on my interrogation Patient denies any active thoughts of suicidality, and no intention of self-harm or harm to others. In this regard, we are going to get psychiatric evaluation as well In the emergency room, troponins are negative 3, TSH is 8.160, urinalysis shows WBC of 15, +1 protein, RBC 1, creatinine of 1.07, phosphorus elevated 4.8 , INR of 1.6 and myoglobin 13 EKG shows supraventricular tachycardia heart rate of 136, T wave abnormality possibility of inferolateral ischemia chest x-ray shows bilateral pleural effusion, compared to previous study O2 at 94% on 3 L nasal cannula, blood pressure 110/70 03/09: The patient was evaluated, heart rate 114, he is hypotensive at 83/48. His also noted to be hypoxic 78% on room air, supplemental O2 3 L nasal cannula was placed he is now 90%, will repeat a chest x-ray. For hypotension will continue his midodrine 10 mg 3 times a day. According to nurse, she had taken the blood pressure before giving his Midodrine, repeat blood pressure 100/58. Will continue to monitor his blood pressure closely. Cardiology switched patient to oral amiodarone 200 mg twice a day. Patient was consulted by psychiatry, he was cleared from a psychiatric standpoint. Sitter at the bedside is discontinued. He was started on Wellbutrin 150 mg daily. Social work will be consulted regarding his guardianship issues. 03/10: Patient's blood pressure is running 80/56. He is on Midorine which will be increased to 4 times daily. Patient received IV albumin yesterday. Flomax and Proscar will be discontinued. Monitor patient for post-void residual. Cardiology is recommending continuing current medications and anticoagulation and follow-up with Dr. Lew for possible ablation. Objective - Vital Signs Vital signs: Vital Signs Temp 96.9 F L 03/10/18 11:28 Pulse 115 H 03/10/18 12:00 Resp 18 03/10/18 12:00 BP 85/60 03/10/18 11:28 Pulse Ox 91 L 03/10/18 11:28 Intake & Output 03/09/18 03/10/18 03/10/18 18:59 06:59 18:59 Intake Total 720 480 Output Total 200 150 Balance 720 -200 330 Weight 89.3 kg Intake: Oral 720 480 Output: Urine 200 150 Other: Voiding Method Toilet Toilet Bedside Commode Bedside Commode Bedside Commode Urinal # Voids 1 1 1 - Exam General appearance: cooperative, no acute distress - EENT Eyes: anicteric sclerae, EOMI, dentition normal ENT: NA/AT, normal oropharynx - Neck Neck: normal ROM - Cardiovascular Rhythm: regular Heart sounds: normal: S1, S2 Abnormal Heart Sounds: no systolic murmur, no diastolic murmur, no rub, no S3 Gallop, no S4 Gallop, no click, no other - Gastrointestinal General gastrointestinal: normal bowel sounds, soft - Integumentary Integumentary: decreased turgor, normal - Neurologic Neurologic: CNII-XII intact - Musculoskeletal Musculoskeletal: gait normal, generalized weakness, strength equal bilaterally - Psychiatric Psychiatric: A&O x's 3, appropriate affect, intact judgment & insight - Labs CBC & Chem 7: 03/07/18 17:07 03/09/18 06:15 Labs: Microbiology - Last 24 Hours (Table) 03/08/18 16:42 Urine Culture - Final Urine,Voided Assessment and Plan Plan: 1. recurrent atrial flutter with rapid ventricular rate s/p cardioversion with episode of A. fib with RVR- Patient underwent previous cardioversion to sinus rhythm 0n 01/[address] Sneed planned to repeat cardioversion but patient refused, Amiodarone switched to oral, continue Lopressor 50 mg twice daily, eliquis 5 mg twice a day. 2. Chronic systolic heart failure. EF <20-25%. TAMIR from previous shows severe cardiomyopathy with moderate pericardial effusion which is likely chronic. Cardiology is following. losartan will be discontinued and metoprolol 50 mg twice daily continued. Amiodarone switched to oral. Continue Aldactone 12.5 mg daily 3. Orthostatic hypotention with autonomic dysfunction, continue Midodrine 10mg increased to 4 times daily. Proscar and Flomax discontinued. Patient is status post albumin. 4. Hypertension, currently hypotensive patient currently on spironolactone 12.5 mg daily, metoprolol 50 mg twice a day, patient is not on any Bruce inhibitors secondary to marginally low BP 5. Recurrent depression- previous report of suicidal ideation with intention last admission, patient declines any current suicidal ideation, he was cleared by psychiatry, Wellbutrin 150 mg added, will continue Xanax twice a day when necessary 6. Urinary retention with BPH-Flomax and Proscar discontinued. Monitor post void residual. 7. History of TIA/stroke- continue eliquis 8. Nystagmus- meclizine 12.5 mg 2 times a day when necessary dizziness 9. 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 Follows with Dr. Kennedy. Patient also follow Dr. Jones who recommended conservative management 10. Pericardial effusion, moderate, no plans for surgical intervention 11. Mild protein calorie malnutrition, patient has diminished appetite, nutritional supplementation are requested 12. CKD stage II, stable 13 BPH 14. Chronic anticoagulation with Eliquis secondary to A. fib/A flutter 15. Transaminitis, currently asymptomatic ALT at 99, normal alkaline phosphatase 16. New Clinical hypothyroidism, TSH elevated at 8, levothyroxine 50 g to be started 17 Coronary artery calcifications/CAD GI prophylaxis Pepcid 20 mg po twice a day DVT prophylaxis on eliquis code status no code Discharge plan: Return to [facility] Impression and plan of care have been directed as dictated by the signing physician. Etelvina Gallegos nurse practitioner acting as scribe for signing physician.
[2018-03-11] MEDS ORDERED: cefTRIAXone IN SWFI 1,000 MG/10 ML SYRINGE IVP SCH (14:00)
--- NOTE | 2018-03-11 15:32 | P.PN ---
Subjective Progress Note Date: 03/11/18 Principal diagnosis: atrial fibrillation with RVR This is a pleasantly confused 73-year-old gentleman with history of cardiomyopathy as well as a history of chronic atrial fibrillation/atrial flutter. He verbalizes feeling better today. He is somewhat confused. He denies any symptoms of chest discomfort, dizziness or shortness of breath however he is wheezing quite a bit today. Echocardiogram showed severely impaired systolic function with an ejection fraction of 20-25% with a previous echocardiogram showing an ejection fraction of 25-30%. He is currently on amiodarone 200 mg by mouth twice a day with fairly well-controlled heart rates in the 80s to 90s. He is also on Eliquis, aspirin 81 mg daily, Lipitor 40 mg by mouth daily at bedtime, metoprolol tartrate 50 mg by mouth twice a day, Aldactone 12.5 mg by mouth daily and midodrine 10 mg by mouth 4 times a day. Objective - Vital Signs Vital signs: Vital Signs Temp 97.1 F L 03/11/18 04:00 Pulse 103 H 03/11/18 11:11 Resp 18 03/11/18 11:11 BP 77/56 03/11/18 11:31 Pulse Ox 94 L 03/11/18 11:11 Intake & Output 03/10/18 03/11/18 03/11/18 18:59 06:59 18:59 Intake Total 942 240 Output Total 250 100 Balance 692 -100 240 Weight 92.5 kg Intake: Oral 942 240 Output: Urine 250 100 Other: Voiding Method Bedside Commode Bedside Commode Bedside Commode Urinal Urinal Urinal # Voids 1 1 - Exam PHYSICAL EXAMINATION: HEENT: Head is atraumatic, normocephalic. Pupils equal, round. Neck is supple. There is no elevated jugular venous pressure. HEART EXAMINATION: Heart sounds irregularly irregular, S1 and S2 normal. No murmur or gallop heard. CHEST EXAMINATION: Lungs reveal expiratory wheezing throughout. No chest wall tenderness is noted on palpation or with deep breathing. ABDOMEN: Soft, nontender. Bowel sounds are heard. No organomegaly noted. EXTREMITIES: 2+ peripheral pulses with no evidence of peripheral edema and no calf tenderness noted. NEUROLOGIC patient is awake, alert and oriented x1-2, confusion noted. . - Labs CBC & Chem 7: 03/07/18 17:07 03/09/18 06:15 Assessment and Plan Assessment: #1 atrial fibrillation/flutter, persistent #2 cardiomyopathy #3 orthostatic hypotension with autonomic dysfunction Plan: From cardiology's perspective, medications were reviewed and we will continue the same. Continue anticoagulation. May consider follow-up with Dr. Sneed for possible ablation once stabilized. We will continue to follow the patient and provide further recommendations accordingly. WIND FARM DESIGNER note has been reviewed, I agree with a documented findings and plan of care. Patient was seen and examined.
--- NOTE | 2018-03-11 15:45 | P.PN ---
Subjective Progress Note Date: 03/11/18 This is a 73 years old male patient of Dr. Metz with past medical history of hypertension, recent stroke 3 months ago with multiple admissions over the past several months, his most recent one was 02/17/2018, till 2017. During the last admission, he was admitted secondary to acute on chronic systolic diastolic heart failure, mixed type also required another cardioversion at that time. He was discharged to [facility] after a lengthy admission from our facility. He was seen by Dr. Sneed during the last admission 02/17/2018, atrial flutter s/p unsuccessful cardioversion and was managed on medical therapy. Patient underwent TAMIR and cardioversion on 01/28 had successful electrical cardioversion to sinus rhythm with left ventricular cavity dilated with severe impaired left ventricular systolic function, moderate degree of mitral regurgitation, mild degree of tricuspid regurgitation. Echocardiogram reveals ejection fraction less than 20% , moderate left ventricular hypertrophy, LA is severely dialted, and moderate pericaridal effusion. 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 He has seen vascular surgery in the past who has recommended conservative management for the above. Pericardial effusion documented on echocardiogram appears to be chronic secondary to viral infection. Patient was also noted to have hypotension for which midodrine was initiated. He remains chronically anticoagulated with eliquis. He presents to the emergency room secondary to elevated heart rate, and low blood pressure, weakness, dehydration, no fever no chills, no nausea no vomiting or diarrhea, patient has decreased appetite, patient also has dyspnea and exertion, no chest pain, patient has joint pains all over, broken sleep, patient denies any recent falls, and relies walker on community ambulation. During that last admission Social work met with the patient's POA and can she do longer wants responsibility of being decision maker and is requesting public guardian. During his last admission 02/17/2018 He was also seen by psychiatry, as the patient had mentioned about suicidality, and he tried cutting himself with a butter knife and was unsuccessful in doing this as the butter knife Cut through his deep in his skin. This did not require any surgical treatment on his last admission. Patient has been depressed lately, and had mentioned this to a hospital nurse today about his depression and had mentioned about his suicidal ideation and intention, however on my interrogation Patient denies any active thoughts of suicidality, and no intention of self-harm or harm to others. In this regard, we are going to get psychiatric evaluation as well In the emergency room, troponins are negative 3, TSH is 8.160, urinalysis shows WBC of 15, +1 protein, RBC 1, creatinine of 1.07, phosphorus elevated 4.8 , INR of 1.6 and myoglobin 13 EKG shows supraventricular tachycardia heart rate of 136, T wave abnormality possibility of inferolateral ischemia chest x-ray shows bilateral pleural effusion, compared to previous study O2 at 94% on 3 L nasal cannula, blood pressure 110/70 03/09: The patient was evaluated, heart rate 114, he is hypotensive at 83/48. His also noted to be hypoxic 78% on room air, supplemental O2 3 L nasal cannula was placed he is now 90%, will repeat a chest x-ray. For hypotension will continue his midodrine 10 mg 3 times a day. According to nurse, she had taken the blood pressure before giving his Midodrine, repeat blood pressure 100/58. Will continue to monitor his blood pressure closely. Cardiology switched patient to oral amiodarone 200 mg twice a day. Patient was consulted by psychiatry, he was cleared from a psychiatric standpoint. Sitter at the bedside is discontinued. He was started on Wellbutrin 150 mg daily. Social work will be consulted regarding his guardianship issues. 03/10: Patient's blood pressure is running 80/56. He is on Midorine which will be increased to 4 times daily. Patient received IV albumin yesterday. Flomax and Proscar will be discontinued. Monitor patient for post-void residual. Cardiology is recommending continuing current medications and anticoagulation and follow-up with Dr. Lew for possible ablation. 03/11: Patient's blood pressure remains low. Dosing of Midodrine changed to 6 AM , 11 AM, 3 PM and 9 PM. Patient is not eating very much. He did not sleep well last night. Melatonin has been added. Objective - Vital Signs Vital signs: Vital Signs Temp 97.1 F L 03/11/18 04:00 Pulse 103 H 03/11/18 11:11 Resp 18 03/11/18 11:11 BP 77/56 03/11/18 11:31 Pulse Ox 94 L 03/11/18 11:11 Intake & Output 03/10/18 03/11/18 03/11/18 18:59 06:59 18:59 Intake Total 942 240 Output Total 250 100 Balance 692 -100 240 Weight 92.5 kg Intake: Oral 942 240 Output: Urine 250 100 Other: Voiding Method Bedside Commode Bedside Commode Bedside Commode Urinal Urinal Urinal # Voids 1 1 - Exam General appearance: cooperative, no acute distress - EENT Eyes: anicteric sclerae, EOMI, dentition normal ENT: NA/AT, normal oropharynx - Neck Neck: normal ROM - Cardiovascular Rhythm: regular Heart sounds: normal: S1, S2 Abnormal Heart Sounds: no systolic murmur, no diastolic murmur, no rub, no S3 Gallop, no S4 Gallop, no click, no other - Gastrointestinal General gastrointestinal: normal bowel sounds, soft - Integumentary Integumentary: decreased turgor, normal - Neurologic Neurologic: CNII-XII intact - Musculoskeletal Musculoskeletal: gait normal, generalized weakness, strength equal bilaterally - Psychiatric Psychiatric: A&O x's 2, appropriate affect, intact judgment & insight - Labs CBC & Chem 7: 03/07/18 17:07 03/09/18 06:15 Assessment and Plan Plan: 1. recurrent atrial flutter with rapid ventricular rate s/p cardioversion with episode of A. fib with RVR- Patient underwent previous cardioversion to sinus rhythm 0n 01/[address] Sneed planned to repeat cardioversion but patient refused, Amiodarone switched to oral, continue Lopressor 50 mg twice daily, eliquis 5 mg twice a day. 2. Chronic systolic heart failure. EF <20-25%. TAMIR from previous shows severe cardiomyopathy with moderate pericardial effusion which is likely chronic. Cardiology is following. losartan will be discontinued and metoprolol 50 mg twice daily continued. Amiodarone switched to oral. Continue Aldactone 12.5 mg daily 3. Orthostatic hypotention with autonomic dysfunction, continue Midodrine 10mg increased to 4 times daily. Proscar and Flomax discontinued. Patient is status post albumin. 4. Hypertension, currently hypotensive patient currently on spironolactone 12.5 mg daily, metoprolol 50 mg twice a day, patient is not on any Bruce inhibitors secondary to marginally low BP 5. Recurrent depression- previous report of suicidal ideation with intention last admission, patient declines any current suicidal ideation, he was cleared by psychiatry, Wellbutrin 150 mg added, will continue Xanax twice a day when necessary 6. Urinary retention with BPH-Flomax and Proscar discontinued. Monitor post void residual. 7. History of TIA/stroke- continue eliquis 8. Nystagmus- meclizine 12.5 mg 2 times a day when necessary dizziness 9. 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 Follows with Dr. Kennedy. Patient also follow Dr. Jones who recommended conservative management 10. Pericardial effusion, moderate, no plans for surgical intervention 11. Mild protein calorie malnutrition, patient has diminished appetite, nutritional supplementation are requested 12. CKD stage II, stable 13 BPH 14. Chronic anticoagulation with Eliquis secondary to A. fib/A flutter 15. Transaminitis, currently asymptomatic ALT at 99, normal alkaline phosphatase 16. New Clinical hypothyroidism, TSH elevated at 8, levothyroxine 50 g to be started 17 Coronary artery calcifications/CAD GI prophylaxis Pepcid 20 mg po twice a day DVT prophylaxis on eliquis code status no code Discharge plan: Return to [facility] Impression and plan of care have been directed as dictated by the signing physician. Etelvina Gallegos nurse practitioner acting as scribe for signing physician.
[2018-03-11] MEDS ORDERED: SPIRONOLACTONE 25 MG TAB PO SCH (21:00)
[2018-03-11] MEDS: ATORVASTATIN 40 MG TAB PO SCH (21:37)
[2018-03-11] MEDS: MONTELUKAST 10 MG TAB PO SCH (21:38)
[2018-03-11] MEDS: MELATONIN 3 MG TABLET PO SCH (21:39)
[2018-03-12 07:01] LABS: Calcium 9.3 mg/dL (8.4-10.2)
[2018-03-12] MEDS: LEVOTHYROXINE 50 MCG TAB PO SCH (07:04)
[2018-03-12] MEDS: MIDODRINE 5 MG TAB PO SCH ×4 (07:04→20:03)
[2018-03-12] MEDS: ACETAMINOPHEN TAB 325 MG TAB PO PRN ×2 (08:17→21:08)
[2018-03-12] MEDS: ASPIRIN 81 MG PO SCH (08:18)
[2018-03-12] MEDS: buPROPion XL 150 MG TAB.ER.24H PO SCH (08:18)
[2018-03-12] MEDS: SENNOSIDES-DOCUSATE SODIUM 1 EACH TAB PO SCH ×2 (08:18→20:02)
[2018-03-12] MEDS: APIXABAN 5 MG TAB PO SCH ×2 (08:18→20:01)
[2018-03-12] MEDS: AMIODARONE 200 MG TAB PO SCH ×2 (08:18→20:02)
[2018-03-12] MEDS: NICOTINE 14MG/24HR PATCH TRANSDERM SCH (08:19)
[2018-03-12] MEDS: METOPROLOL TARTRATE 50 MG TAB PO SCH (08:19)
--- NOTE | 2018-03-12 11:02 | P.PN ---
Subjective Progress Note Date: 03/12/18 Principal diagnosis: A. fib with RVR/A flutter Patient continued to be hemodynamically stable overnight no major events reported by nursing staff patient is currently in bed denying chest pain, shortness breath or abdominal pain. Objective - Vital Signs Vital signs: Vital Signs Temp 97.0 F L 03/12/18 08:00 Pulse 105 H 03/12/18 08:00 Resp 18 03/12/18 08:00 BP 88/72 03/12/18 08:00 Pulse Ox 97 03/12/18 08:00 Intake & Output 03/11/18 03/12/18 03/12/18 18:59 06:59 18:59 Intake Total 1260 Output Total 500 500 125 Balance 760 -500 -125 Weight 89.4 kg Intake: Oral 1260 Output: Urine 500 500 125 Other: Voiding Method Bedside Commode Urinal Urinal - Exam Gen.: in stated age, no acute distress Heart: Normal S1-S2 irregularly irregular Lungs: Clear to auscultation bilaterally Abdomen: Soft, no tenderness, positive bowel sounds in all 4 quadrant no guarding or rebound Skin: No new rash Psych: Alert and oriented 3 Neuro: No focal deficit - Labs CBC & Chem 7: 03/07/18 17:07 03/12/18 06:18 Labs: Abnormal Lab Results - Last 24 Hours (Table) 03/12/18 Range/Units 06:18 Sodium 131 L (137-145) mmol/L Potassium 6.0 H (3.5-5.1) mmol/L Carbon Dioxide 21 L (22-30) mmol/L BUN 44 H (9-20) mg/dL Creatinine 1.40 H (0.66-1.25) mg/dL Glucose 106 H (74-99) mg/dL Assessment and Plan Assessment: 1. Atrial flutter with rapid ventricular response. 2. Systolic congestive heart failure with ejection fraction 25%. 3. Chronic hypertension. 4. History of cerebrovascular accident. 5. Plan: We'll wait on cardiology evaluation for possible cardiac ablation versus cardioversion. Patient with low ejection fraction with poor prognosis
[2018-03-12] MEDS ORDERED: SODIUM POLYSTYRENE SULFONATE 15 GM/60 ML BOTTLE PO STA ×2 (11:33→17:43)
--- NOTE | 2018-03-12 14:24 | PN ---
PROGRESS NOTE Mr. Allen is a 73-year-old male with history of severe cardiomyopathy, history of atrial fibrillation. He denies any symptoms of chest pain. His breathing has been stable. He denies any dizziness or palpitation. He denies any nausea. He continues to be at this time on amiodarone 200 mg twice a day, Eliquis 5 mg twice a day, aspirin 81 mg daily, levothyroxine, metoprolol tartrate 50 mg twice a day, spironolactone 12.5 mg daily. PHYSICAL EXAMINATION: Blood pressure running in the 90s to 100 with a heart rate in the 90s. LUNGS: Clear. HEART: Regular rate and rhythm. S1, S2. No S3. No rub appreciated. ABDOMEN: Soft, nontender. EXTREMITIES: No edema. LAB DATA: Potassium 6.0, BUN and creatinine 44 and 1.4. IMPRESSION: 1. Worsening renal function. 2. Cardiomyopathy. 3. Atrial fibrillation, persistent. 4. Hyperkalemia. 5. Hypotension, chronic. RECOMMENDATION: I will stop his Aldactone. I will continue rest of his medical regimen. He will receive Kayexalate. I will cut down the dose of his beta nubia because of his hypotension. We will continue on the amiodarone. Depending on his progress, further recommendation will be made. MMODL / IJN: [id number] /
[2018-03-12] MEDS: ATORVASTATIN 40 MG TAB PO SCH (20:01)
[2018-03-12] MEDS: MONTELUKAST 10 MG TAB PO SCH (20:02)
[2018-03-12] MEDS: METOPROLOL TARTRATE 25 MG TAB PO SCH (20:02)
[2018-03-12] MEDS: MELATONIN 3 MG TABLET PO SCH (20:02)
[2018-03-13] MEDS: LEVOTHYROXINE 50 MCG TAB PO SCH (06:09)
[2018-03-13] MEDS: MIDODRINE 5 MG TAB PO SCH ×4 (06:09→20:28)
[2018-03-13 07:33] LABS: Calcium 8.5 mg/dL (8.4-10.2); Potassium 4.7 mmol/L (3.5-5.1)
[2018-03-13] MEDS: APIXABAN 5 MG TAB PO SCH ×2 (08:01→20:27)
[2018-03-13] MEDS: METOPROLOL TARTRATE 25 MG TAB PO SCH ×2 (08:01→20:28)
[2018-03-13] MEDS: buPROPion XL 150 MG TAB.ER.24H PO SCH (08:01)
[2018-03-13] MEDS: SENNOSIDES-DOCUSATE SODIUM 1 EACH TAB PO SCH ×2 (08:01→20:28)
[2018-03-13] MEDS: AMIODARONE 200 MG TAB PO SCH ×2 (08:01→20:28)
[2018-03-13] MEDS: NICOTINE 14MG/24HR PATCH TRANSDERM SCH (08:01)
--- NOTE | 2018-03-13 11:46 | PN ---
PROGRESS NOTE Mr. Allen is a 73-year-old male with a known history of severe cardiomyopathy, atrial fibrillation, history of hypertension. He is feeling better today. His energy is better. He denies any dizziness palpitation. He denies any nausea. No cough. He feels stronger. He continues to be at this time on amiodarone 200 mg twice a day. Eliquis 5 mg twice a day, metoprolol tartrate 25 mg twice a day, and midodrine. PHYSICAL EXAMINATION: Blood pressure running in the 90s with a heart rate in the 100s. LUNGS: Clear. Heart irregularly irregular, S1, S2. No S3. No rub. ABDOMEN: Soft, nontender. EXTREMITIES: No edema. LAB DATA: BUN and creatinine is 43 and 1.15, potassium 4.7. IMPRESSION: 1. Atrial fibrillation, persistent. 2. Cardiomyopathy. 3. Episode of hypotension with autonomic dysfunction. 4. Hyperkalemia, resolved. RECOMMENDATION: We will continue present therapy. Continue his level of activity. He will follow up as an outpatient with Dr. Sneed to further evaluate his atrial fibrillation and make a decision regarding if he is a candidate for ablation. MMODL / IJN: [id number] /
--- NOTE | 2018-03-13 12:06 | P.PN ---
Subjective Progress Note Date: 03/13/18 Principal diagnosis: A. fib with RVR/A flutter Patient continued to be hypotensive was up to the bathroom this morning with minimum assistance. Patient's vital signs continued to be on the lower side was systolic 70 this morning. Patient is still receiving Midodren and staff is concerned regarding his blood pressure Objective - Vital Signs Vital signs: Vital Signs Temp 97.3 F L 03/13/18 08:00 Pulse 114 H 03/13/18 08:00 Resp 18 03/13/18 08:00 BP 90/76 03/13/18 08:00 Pulse Ox 98 03/13/18 08:23 Intake & Output 03/12/18 03/13/18 03/13/18 18:59 06:59 18:59 Intake Total 60 240 Output Total 525 325 Balance -465 -325 240 Weight 93 kg Intake: Oral 60 240 Output: Urine 525 325 Post Void Residual 0 Other: Voiding Method Urinal - Exam Gen.: in stated age, no acute distress Heart: Normal S1-S2 irregularly irregular Lungs: Clear to auscultation bilaterally Abdomen: Soft, no tenderness, positive bowel sounds in all 4 quadrant no guarding or rebound Skin: No new rash Psych: Alert and oriented 3 Neuro: No focal deficit - Labs CBC & Chem 7: 03/07/18 17:07 03/13/18 06:12 Labs: Abnormal Lab Results - Last 24 Hours (Table) 03/12/18 03/13/18 Range/Units 16:39 06:12 Sodium 130 L (137-145) mmol/L Potassium 6.0 H (3.5-5.1) mmol/L BUN 43 H (9-20) mg/dL Glucose 103 H (74-99) mg/dL Assessment and Plan Assessment: 1. Atrial flutter with rapid ventricular response. 2. Systolic congestive heart failure with ejection fraction 25%. 3. Chronic hypotension. 4. History of cerebrovascular accident. 5. Generalized weakness. I have discussed with the patient and nursing staff current vital signs determent to transfer patient to general medical floor continue with physical and neck patient will therapy continue with midodrin scheduled and monitor vital signs closely avoid fluid boluses as much as possible and consider discharging patient in the morning based on physical and acute patient will therapy recommendation. Patient is well known to have chronic hypertension but his systolic blood pressure was in the 70s this morning and I would like to continue close monitoring. Plan discussed with union laborer
[2018-03-13] MEDS: ACETAMINOPHEN TAB 325 MG TAB PO PRN ×2 (16:47→23:30)
[2018-03-13] MEDS: MELATONIN 3 MG TABLET PO SCH (20:27)
[2018-03-13] MEDS: ATORVASTATIN 40 MG TAB PO SCH (20:28)
[2018-03-13] MEDS: MONTELUKAST 10 MG TAB PO SCH (20:28)
[2018-03-14] MEDS: LEVOTHYROXINE 50 MCG TAB PO SCH (06:32)
[2018-03-14] MEDS: MIDODRINE 5 MG TAB PO SCH ×4 (06:32→21:28)
--- NOTE | 2018-03-14 08:54 | XR ---
EXAMINATION TYPE: XR chest 1V DATE OF EXAM: 03/14/2018 COMPARISON: 03/09/2018 HISTORY: 73-year-old male with hypoxia TECHNIQUE: Single frontal view of the chest is obtained. FINDINGS: Heart remains mildly enlarged. Atherosclerotic arch calcifications. Mild diffuse interstitial promine nce. Small bilateral pleural effusions with bibasilar and retrocardiac densities. Overall changes sli ghtly progressed at the lung bases. IMPRESSION: 1. Cardiomegaly. Correlate for mild pulmonary vascular congestion. 2. Small pleural effusions with adjacent atelectasis and/or consolidation, stable to slightly worsene d.
[2018-03-14] MEDS: SENNOSIDES-DOCUSATE SODIUM 1 EACH TAB PO SCH ×2 (09:01→21:27)
[2018-03-14] MEDS: METOPROLOL TARTRATE 25 MG TAB PO SCH ×2 (09:01→21:28)
[2018-03-14] MEDS: AMIODARONE 200 MG TAB PO SCH ×2 (09:01→21:27)
[2018-03-14] MEDS: APIXABAN 5 MG TAB PO SCH ×2 (09:02→21:27)
[2018-03-14] MEDS: buPROPion XL 150 MG TAB.ER.24H PO SCH (09:02)
[2018-03-14] MEDS: NICOTINE 14MG/24HR PATCH TRANSDERM SCH (09:02)
[2018-03-14] MEDS ORDERED: guaiFENesin 600 MG TABLET.ER PO PRN (09:10)
[2018-03-14] MEDS ORDERED: IPRATROPIUM-ALBUTEROL 3 ML NEB INHALATION PRN (09:12)
[2018-03-14 09:32] LABS: Anisocytosis Slight; Basophils % (A) 0 %; Eosinophils % (A) 0 %; HGB 12.5 gm/dL (13.0-17.5); Hypochromasia Marked; Lymphocytes # (A) 1.1 k/uL (1.0-4.8); Lymphocytes % (A) 11 %; MCH 25.9 pg (25.0-35.0); MCHC 30.6 g/dL (31.0-37.0); MCV 84.7 fL (80.0-100.0); Mean Platelet Volume 7.9; Monocytes # (A) 0.6 k/uL (0-1.0); Monocytes % (A) 6 %; Neutrophils # (A) 7.6 k/uL (1.3-7.7); Neutrophils % (A) 81 %; Poikilocytosis Slight; RBC 4.83 m/uL (4.30-5.90); RDW 17.6 % (11.5-15.5); WBC 9.4 k/uL (3.8-10.6)
[2018-03-14 09:34] LABS: Platelet Count 425 k/uL (150-450)
[2018-03-14] MEDS: FUROSEMIDE 20 MG TAB PO SCH (10:00)
--- NOTE | 2018-03-14 10:56 | CDI ---
Last Revision, October 2017 Documentation Clarification Form Date: 03/14/18 From: Iris Rao RN Admit Date: 03/07/2018 7:54:00 PM Patient Name: Nathan Allen Visit Number: [id number] ATTENTION: The Clinical Documentation Specialists (CDI) and [facility] Coding Staff appreciate your assistance in clarifying documentation. Please respond to the clarification below the line at the bottom and electronically sign. The CDI & [facility] Coding staff will review the response and follow-up if needed. Please note: Queries are made part of the Legal Health Record. If you have any questions, please contact the author of this message via ITS. Dr. Alissa Henry, Documentation of COPD is located in the 03/08 consult, and the H&P. History/Risk Factors: htn, stroke, chronic systolic diastolic heart failure, a flutter, copd, prostate disorder, carotid endardectom, smoker Clinical Indicators: CXR: correlate for CHF and pulmonary vascular congestion Vital Signs on admission: T 97.5, P 136, R 18, 109/76, 95% RA presented with elevated B/P and heart rate Lung and Respiratory Assessment: normal Treatment: Nebulizers: Duoneb, Ventolin Antibiotics: IV Cipro, IV Rocephin In your professional opinion, can you please clarify if the above findings and treatment signify any of the following? Acute Exacerbation of Chronic Obstructive Pulmonary Disease (COPD) Acute on Chronic Obstructive Asthma Acute on chronic bronchitis Chronic obstructive pulmonary disease with acute lower respiratory infection Emphysema Other condition, please specify Unable to determine Please continue to document in your progress notes, under the line below and/or in the discharge summary in order to capture severity of illness and risk of mortality. Include clinical findings that support your diagnosis. MTDD
--- NOTE | 2018-03-14 12:03 | P.PN ---
<Jocelyne Khan - Last Filed: 03/14/18 11:52> Subjective This is a 73 years old male patient of Dr. Metz with past medical history of hypertension, recent stroke 3 months ago with multiple admissions over the past several months, his most recent one was 02/17/2018, till 2017. During the last admission, he was admitted secondary to acute on chronic systolic diastolic heart failure, mixed type also required another cardioversion at that time. He was discharged to [facility] after a lengthy admission from our facility. He was seen by Dr. Sneed during the last admission 02/17/2018, atrial flutter s/p unsuccessful cardioversion and was managed on medical therapy. Patient underwent TAMIR and cardioversion on 01/28 had successful electrical cardioversion to sinus rhythm with left ventricular cavity dilated with severe impaired left ventricular systolic function, moderate degree of mitral regurgitation, mild degree of tricuspid regurgitation. Echocardiogram reveals ejection fraction less than 20% , moderate left ventricular hypertrophy, LA is severely dialted, and moderate pericaridal effusion. 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 He has seen vascular surgery in the past who has recommended conservative management for the above. Pericardial effusion documented on echocardiogram appears to be chronic secondary to viral infection. Patient was also noted to have hypotension for which midodrine was initiated. He remains chronically anticoagulated with eliquis. He presents to the emergency room secondary to elevated heart rate, and low blood pressure, weakness, dehydration, no fever no chills, no nausea no vomiting or diarrhea, patient has decreased appetite, patient also has dyspnea and exertion, no chest pain, patient has joint pains all over, broken sleep, patient denies any recent falls, and relies walker on community ambulation. During that last admission Social work met with the patient's POA and can she do longer wants responsibility of being decision maker and is requesting public guardian. During his last admission 02/17/2018 He was also seen by psychiatry, as the patient had mentioned about suicidality, and he tried cutting himself with a butter knife and was unsuccessful in doing this as the butter knife Cut through his deep in his skin. This did not require any surgical treatment on his last admission. Patient has been depressed lately, and had mentioned this to a hospital nurse today about his depression and had mentioned about his suicidal ideation and intention, however on my interrogation Patient denies any active thoughts of suicidality, and no intention of self-harm or harm to others. In this regard, we are going to get psychiatric evaluation as well In the emergency room, troponins are negative 3, TSH is 8.160, urinalysis shows WBC of 15, +1 protein, RBC 1, creatinine of 1.07, phosphorus elevated 4.8 , INR of 1.6 and myoglobin 13 EKG shows supraventricular tachycardia heart rate of 136, T wave abnormality possibility of inferolateral ischemia chest x-ray shows bilateral pleural effusion, compared to previous study O2 at 94% on 3 L nasal cannula, blood pressure 110/70 03/09: The patient was evaluated, heart rate 114, he is hypotensive at 83/48. His also noted to be hypoxic 78% on room air, supplemental O2 3 L nasal cannula was placed he is now 90%, will repeat a chest x-ray. For hypotension will continue his midodrine 10 mg 3 times a day. According to nurse, she had taken the blood pressure before giving his Midodrine, repeat blood pressure 100/58. Will continue to monitor his blood pressure closely. Cardiology switched patient to oral amiodarone 200 mg twice a day. Patient was consulted by psychiatry, he was cleared from a psychiatric standpoint. Sitter at the bedside is discontinued. He was started on Wellbutrin 150 mg daily. Social work will be consulted regarding his guardianship issues. 03/10: Patient's blood pressure is running 80/56. He is on Midorine which will be increased to 4 times daily. Patient received IV albumin yesterday. Flomax and Proscar will be discontinued. Monitor patient for post-void residual. Cardiology is recommending continuing current medications and anticoagulation and follow-up with Dr. Lew for possible ablation. 03/11: Patient's blood pressure remains low. Dosing of Midodrine changed to 6 AM , 11 AM, 3 PM and 9 PM. Patient is not eating very much. He did not sleep well last night. Melatonin has been added. 03/12: Patient continued to be hemodynamically stable overnight no major events reported by nursing staff patient is currently in bed denying chest pain, shortness breath or abdominal pain. 03/13: Patient continued to be hypotensive was up to the bathroom this morning with minimum assistance. Patient's vital signs continued to be on the lower side was systolic 70 this morning. Patient is still receiving Midodren and staff is concerned regarding his blood pressure 03/14: Patient's blood pressure continues to be on the lower side at 94/60 this morning he continues on midodrine 10 mg 4 times a day. He denies any chest pain , dizziness, or syncope. Repeat chest x-ray shows cardiomegaly, possible mild pulmonary vascular congestion, small pleural effusions with atelectasis slightly worsened from previous x-ray. He continues on Lasix 20 mg daily. On exam today he does complain of a cough and wheezes noted. Will also add prednisone 40 mg daily and DuoNeb's. Objective - Vital Signs Vital signs: Vital Signs Temp 97.3 F L 03/14/18 09:17 Pulse 94 03/14/18 09:17 Resp 20 03/14/18 09:22 BP 94/60 03/14/18 10:00 Pulse Ox 95 03/14/18 09:22 Intake & Output 03/13/18 03/14/18 03/14/18 18:59 06:59 18:59 Intake Total 480 360 360 Output Total 0 200 Balance 480 160 360 Weight 89.2 kg Intake: Oral 480 360 360 Output: Urine 200 Post Void Residual 0 Other: Voiding Method Urinal # Voids 1 1 # Bowel Movements 1 - Exam - Constitutional General appearance: cooperative, no acute distress - EENT Eyes: anicteric sclerae, EOMI, dentition normal ENT: NA/AT, normal oropharynx - Neck Neck: normal ROM - Cardiovascular Rhythm: irregular Heart sounds: normal: S1, S2 Abnormal Heart Sounds: no systolic murmur, no diastolic murmur, no rub, no S3 Gallop, no S4 Gallop, no click, no other - Gastrointestinal General gastrointestinal: normal bowel sounds, soft - Integumentary Integumentary: decreased turgor, normal - Neurologic Neurologic: CNII-XII intact - Musculoskeletal Musculoskeletal: gait normal, generalized weakness, strength equal bilaterally - Psychiatric Psychiatric: appropriate affect, intact judgment & insight - Labs CBC & Chem 7: 03/14/18 06:01 03/13/18 06:12 Labs: Abnormal Lab Results - Last 24 Hours (Table) 03/14/18 Range/Units 06:01 Hgb 12.5 L (13.0-17.5) gm/dL MCHC 30.6 L (31.0-37.0) g/dL RDW 17.6 H (11.5-15.5) % Assessment and Plan Plan: 1. recurrent atrial flutter with rapid ventricular rate s/p cardioversion with episode of A. fib with RVR- Patient underwent previous cardioversion to sinus rhythm 0n 01/[address] Sneed planned to repeat cardioversion but patient refused, Amiodarone switched to oral, continue Lopressor 50 mg twice daily, eliquis 5 mg twice a day. 2. Chronic systolic heart failure. EF <20-25%. TAMIR from previous shows severe cardiomyopathy with moderate pericardial effusion which is likely chronic. Cardiology is following. losartan will be discontinued and metoprolol 25 mg twice daily continued. Amiodarone 200mg BID. 3. Orthostatic hypotention with autonomic dysfunction, continue Midodrine 10mg increased to 4 times daily. Proscar and Flomax discontinued. Patient is status post albumin. 4. Hypertension, currently hypotensive patient currently on metoprolol 25mg twice a day, patient is not on any Bruce inhibitors secondary to marginally low BP 5. Recurrent depression- previous report of suicidal ideation with intention last admission, patient declines any current suicidal ideation, he was cleared by psychiatry, Wellbutrin 150 mg added, will continue Xanax twice a day when necessary 6. Urinary retention with BPH-Flomax and Proscar discontinued. Monitor post void residual. 7. History of TIA/stroke- continue eliquis 8. Nystagmus- meclizine 12.5 mg 2 times a day when necessary dizziness 9. 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 Follows with Dr. Kennedy. Patient also follow Dr. Jones who recommended conservative management 10. Pericardial effusion, moderate, no plans for surgical intervention 11. Mild protein calorie malnutrition, patient has diminished appetite, nutritional supplementation are requested 12. CKD stage II, stable 13 BPH 14. Chronic anticoagulation with Eliquis secondary to A. fib/A flutter 15. Transaminitis, currently asymptomatic ALT at 99, normal alkaline phosphatase 16. New Clinical hypothyroidism, TSH elevated at 8, levothyroxine 50 g to be started 17 Coronary artery calcifications/CAD 18 acute exacerbation of COPD. We'll add DuoNeb's, prednisone 40 mg daily, continue singulair. GI prophylaxis Pepcid 20 mg po twice a day DVT prophylaxis on eliquis code status no code Discharge plan: [facility] The above impression and plan of care have been discussed and directed by signing physician, patient was seen and evaluation by signing physician. Jocelyne Khan nurse practitioner acting as scribe. <Aki Moura - Last Filed: 03/14/18 16:59> Objective - Vital Signs Vital signs: Vital Signs Temp 97.6 F 03/14/18 14:30 Pulse 63 03/14/18 14:30 Resp 18 03/14/18 14:30 BP 119/58 03/14/18 14:30 Pulse Ox 93 L 03/14/18 14:30 Intake & Output 03/13/18 03/14/18 03/14/18 18:59 06:59 18:59 Intake Total 480 360 860 Output Total 0 200 50 Balance 480 160 810 Weight 89.2 kg 89.2 kg Intake: Oral 480 360 860 Output: Urine 200 50 Post Void Residual 0 Other: Voiding Method Urinal # Voids 1 1 1 # Bowel Movements 1 - Labs CBC & Chem 7: 03/14/18 06:01 03/13/18 06:12 Labs: Abnormal Lab Results - Last 24 Hours (Table) 03/14/18 Range/Units 06:01 Hgb 12.5 L (13.0-17.5) gm/dL MCHC 30.6 L (31.0-37.0) g/dL RDW 17.6 H (11.5-15.5) % Assessment and Plan Plan: Lasix stated today at 20 mg po Daily for acute on chronic systolic heart failure
[2018-03-14] MEDS: predniSONE 20 MG TAB PO SCH (13:00)
[2018-03-14 15:17] VITALS: BMI 29.9
[2018-03-14] MEDS: ATORVASTATIN 40 MG TAB PO SCH (21:27)
[2018-03-14] MEDS: MONTELUKAST 10 MG TAB PO SCH (21:27)
[2018-03-14] MEDS: MELATONIN 3 MG TABLET PO SCH (21:28)
[2018-03-15 05:37] VITALS: BP 130/91; PULSE 101; RESP 16; TEMP 98.5
[2018-03-15] MEDS: LEVOTHYROXINE 50 MCG TAB PO SCH (06:34)
[2018-03-15] MEDS: MIDODRINE 5 MG TAB PO SCH ×3 (06:34→14:48)
[2018-03-15] MEDS: NICOTINE 14MG/24HR PATCH TRANSDERM SCH (07:37)
[2018-03-15] MEDS: SENNOSIDES-DOCUSATE SODIUM 1 EACH TAB PO SCH (07:37)
[2018-03-15] MEDS: AMIODARONE 200 MG TAB PO SCH (07:37)
[2018-03-15] MEDS: FUROSEMIDE 20 MG TAB PO SCH (07:37)
[2018-03-15] MEDS: buPROPion XL 150 MG TAB.ER.24H PO SCH (07:37)
[2018-03-15] MEDS: APIXABAN 5 MG TAB PO SCH (07:37)
[2018-03-15] MEDS: METOPROLOL TARTRATE 25 MG TAB PO SCH (07:37)
[2018-03-15] MEDS: predniSONE 20 MG TAB PO SCH (07:38)
[2018-03-15] MEDS ORDERED: predniSONE 20 MG TAB PO SCH (09:00)
[2018-03-15 09:23] LABS: Anisocytosis Slight; HCT 41.2 % (39.0-53.0); HGB 12.4 gm/dL (13.0-17.5); Hypochromasia Marked; MCH 25.5 pg (25.0-35.0); MCV 84.9 fL (80.0-100.0); Mean Platelet Volume 9.5; Platelet Count 245 k/uL (150-450); Poikilocytosis Slight; RBC 4.85 m/uL (4.30-5.90); RDW 17.8 % (11.5-15.5); WBC 7.4 k/uL (3.8-10.6)
[2018-03-15] MEDS ORDERED: SPIRONOLACTONE 25 MG TAB PO SCH (09:30)
[2018-03-15] MEDS ORDERED: METOPROLOL TARTRATE 25 MG TAB PO ONE (09:30)
[2018-03-15 11:08] LABS: Band Neutrophils % 1 %; Lymphocytes # (M) 0.67 k/uL (1.0-4.8); Monocytes # (M) 0.74 k/uL (0-1.0); Neutrophils % (M) 80 %; Nucleated Red Blood Cells 0 /100 WBC (0-0); Total Cells Counted 100
--- NOTE | 2018-03-15 12:57 | P.PN ---
Subjective Progress Note Date: 03/15/18 Mr. Allen is seen and examined today in no acute distress. His breathing is labored while attempting to get up and use the bedside commode. Telemetry tracings reveal he continues in atrial fibrillation with rapid ventricular response. Heart rate has been in the low 100-110 range, blood pressure this morning 130/91. He is currently on amiodarone 200 mg BID and metoprolol 25mg BID for rate control. He is also on midodrine for orthostatic hypotension. Chest xray was performed yesterday and reveals mild pulmonary vascular congestion, small pleural effusions with adjacent atelectasis and/or consolidation stable to slightly worsened from previous study. By mouth Lasix was added yesterday 20 mg daily. Echocardiogram obtained milligrams admission revealed severely impaired left ventricular systolic function with ejection fraction 20-25%, severely dilated left atrium, mild to moderate mitral regurgitation and mild pulmonary hypertension with an RVSP of 39.99 mmHg. Aldactone has been discontinued secondary to hyperkalemia. Objective - Vital Signs Vital signs: Vital Signs Temp 98.5 F 03/15/18 05:37 Pulse 101 H 03/15/18 05:37 Resp 16 03/15/18 05:37 BP 130/91 03/15/18 05:37 Pulse Ox 91 L 03/15/18 05:37 Intake & Output 03/14/18 03/15/18 03/15/18 18:59 06:59 18:59 Intake Total 1460 Output Total 150 100 Balance 1310 -100 Weight 89.2 kg 90.5 kg Intake: Oral 1460 Output: Urine 150 100 Other: Voiding Method Urinal Urinal Urinal # Voids 1 2 - Exam GENERAL: Disheveled and in no acute distress. NECK: Supple without JVD or thyromegaly. LUNGS: Bibasilar rales. No wheezes or rhonchi. Respiration equal and labored with exertion. HEART: Irregular rate and rhythm with no murmurs, rubs or gallops. S1 and S2 heard. EXTREMITIES: Normal range of motion, no edema. No clubbing or cyanosis. Peripheral pulses intact. - Labs CBC & Chem 7: 03/15/18 08:15 03/13/18 06:12 Labs: Abnormal Lab Results - Last 24 Hours (Table) 03/15/18 Range/Units 08:15 Hgb 12.4 L (13.0-17.5) gm/dL MCHC 30.0 L (31.0-37.0) g/dL RDW 17.8 H (11.5-15.5) % Lymphocytes # (Manual) 0.67 L (1.0-4.8) k/uL Assessment and Plan Assessment: ASSESSMENT 1. Chronic persistent atrial fibrillation on half-way anticoagulation with uncontrolled rate 2. Cardiomyopathy 3. History of hypertension with episodes of hypotensin with autonomic dysfunction 4. Hyperkalemia, resolved. Aldactone discontinued. 5. Acute on chronic systolic heart failure, mild exacerbation 6. Hypothyroid PLAN Increase beta nubia slowly and watch for postural blood pressure changes. Continue with amiodarone, lasix, atorvastatin, eliquis and midodrine as ordered. Plan is to follow up with Dr. Sneed upon discharge to discuss plans for ablation. The above impression and plan of care have been discussed and directed by the signing physician. Dianelys Wilkinson, nurse practitioner, acting as scribe for signing physician.
[2018-03-15] MEDS ORDERED: TAMSULOSIN 0.4 MG CAP.ER.24H PO SCH (14:00)
[2018-03-15] MEDS ORDERED: METOPROLOL TARTRATE 50 MG TAB PO SCH (21:00)
--- NOTE | 2018-03-16 07:26 | CDI ---
Last Revision, October 2017 Documentation Clarification Form Date: 03/14/18 From: Iris Rao Admit Date: 03/07/2018 7:54:00 PM Patient Name: Nathan Allen Visit Number: [id number] Discharge Date: ATTENTION: The Clinical Documentation Specialists (CDI) and [facility] Coding Staff appreciate your assistance in clarifying documentation. Please respond to the clarification below the line at the bottom and electronically sign. The CDI & [facility] Coding staff will review the response and follow-up if needed. Please note: Queries are made part of the Legal Health Record. If you have any questions, please contact the author of this message via ITS. Dr. Alissa Henry, Documentation of COPD is located in the 03/08 consult, and the H&P. History/Risk Factors: htn, stroke, chronic systolic diastolic heart failure, a flutter, copd, prostate disorder, carotid endardectom, smoker Clinical Indicators: CXR: correlate for CHF and pulmonary vascular congestion Vital Signs on admission: T 97.5, P 136, R 18, 109/76, 95% RA presented with elevated B/P and heart rate Lung and Respiratory Assessment: normal Treatment: Nebulizers: Duoneb, Ventolin Antibiotics: IV Cipro, IV Rocephin In your professional opinion, can you please clarify if the above findings and treatment signify any of the following? Acute Exacerbation of Chronic Obstructive Pulmonary Disease (COPD) Acute on Chronic Obstructive Asthma Acute on chronic bronchitis Chronic obstructive pulmonary disease with acute lower respiratory infection Emphysema Other condition, please specify Unable to determine Please continue to document in your progress notes and discharge summary in order to capture severity of illness and risk of mortality. Include clinical findings that support your diagnosis. MTDD
--- NOTE | 2018-03-16 10:18 | P.DS ---
Providers Date of admission: 03/07/18 19:54 Expected date of discharge: 03/15/18 Attending physician: Alissa Henry Consults: 03/07/18 19:54 Consult Physician Urgent Consulting Provider: Van Patten Consult Reason/Comments: afib Do you want consulting provider notified?: Yes 03/08/18 09:23 Consult Physician Routine Consulting Provider: José Manuel Suggs Consult Reason/Comments: suicidal Do you want consulting provider notified?: Yes Primary care physician: Alexei Metz [facility] Course: This is a 73 years old male patient of Dr. Metz with past medical history of hypertension, recent stroke 3 months ago with multiple admissions over the past several months, his most recent one was 02/17/2018, till 2017. During the last admission, he was admitted secondary to acute on chronic systolic diastolic heart failure, mixed type also required another cardioversion at that time. He was discharged to [facility] after a lengthy admission from our facility. He was seen by Dr. Sneed during the last admission 02/17/2018, atrial flutter s/p unsuccessful cardioversion and was managed on medical therapy. Patient underwent TAMIR and cardioversion on 01/28 had successful electrical cardioversion to sinus rhythm with left ventricular cavity dilated with severe impaired left ventricular systolic function, moderate degree of mitral regurgitation, mild degree of tricuspid regurgitation. Echocardiogram reveals ejection fraction less than 20% , moderate left ventricular hypertrophy, LA is severely dialted, and moderate pericaridal effusion. 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 He has seen vascular surgery in the past who has recommended conservative management for the above. Pericardial effusion documented on echocardiogram appears to be chronic secondary to viral infection. Patient was also noted to have hypotension for which midodrine was initiated. He remains chronically anticoagulated with eliquis. He presents to the emergency room secondary to elevated heart rate, and low blood pressure, weakness, dehydration, no fever no chills, no nausea no vomiting or diarrhea, patient has decreased appetite, patient also has dyspnea and exertion, no chest pain, patient has joint pains all over, broken sleep, patient denies any recent falls, and relies walker on community ambulation. During that last admission Social work met with the patient's POA and can she do longer wants responsibility of being decision maker and is requesting public guardian. During his last admission 02/17/2018 He was also seen by psychiatry, as the patient had mentioned about suicidality, and he tried cutting himself with a butter knife and was unsuccessful in doing this as the butter knife Cut through his deep in his skin. This did not require any surgical treatment on his last admission. Patient has been depressed lately, and had mentioned this to a hospital nurse today about his depression and had mentioned about his suicidal ideation and intention, however on my interrogation Patient denies any active thoughts of suicidality, and no intention of self-harm or harm to others. In this regard, we are going to get psychiatric evaluation as well In the emergency room, troponins are negative 3, TSH is 8.160, urinalysis shows WBC of 15, +1 protein, RBC 1, creatinine of 1.07, phosphorus elevated 4.8 , INR of 1.6 and myoglobin 13 EKG shows supraventricular tachycardia heart rate of 136, T wave abnormality possibility of inferolateral ischemia chest x-ray shows bilateral pleural effusion, compared to previous study O2 at 94% on 3 L nasal cannula, blood pressure 110/70 03/09: The patient was evaluated, heart rate 114, he is hypotensive at 83/48. His also noted to be hypoxic 78% on room air, supplemental O2 3 L nasal cannula was placed he is now 90%, will repeat a chest x-ray. For hypotension will continue his midodrine 10 mg 3 times a day. According to nurse, she had taken the blood pressure before giving his Midodrine, repeat blood pressure 100/58. Will continue to monitor his blood pressure closely. Cardiology switched patient to oral amiodarone 200 mg twice a day. Patient was consulted by psychiatry, he was cleared from a psychiatric standpoint. Sitter at the bedside is discontinued. He was started on Wellbutrin 150 mg daily. Social work will be consulted regarding his guardianship issues. 03/10: Patient's blood pressure is running 80/56. He is on Midorine which will be increased to 4 times daily. Patient received IV albumin yesterday. Flomax and Proscar will be discontinued. Monitor patient for post-void residual. Cardiology is recommending continuing current medications and anticoagulation and follow-up with Dr. Lew for possible ablation. 03/11: Patient's blood pressure remains low. Dosing of Midodrine changed to 6 AM , 11 AM, 3 PM and 9 PM. Patient is not eating very much. He did not sleep well last night. Melatonin has been added. 03/12: Patient continued to be hemodynamically stable overnight no major events reported by nursing staff patient is currently in bed denying chest pain, shortness breath or abdominal pain. 03/13: Patient continued to be hypotensive was up to the bathroom this morning with minimum assistance. Patient's vital signs continued to be on the lower side was systolic 70 this morning. Patient is still receiving Midodren and staff is concerned regarding his blood pressure 03/14: Patient's blood pressure continues to be on the lower side at 94/60 this morning he continues on midodrine 10 mg 4 times a day. He denies any chest pain , dizziness, or syncope. Repeat chest x-ray shows cardiomegaly, possible mild pulmonary vascular congestion, small pleural effusions with atelectasis slightly worsened from previous x-ray. He continues on Lasix 20 mg daily. On exam today he does complain of a cough and wheezes noted. Will also add prednisone 40 mg daily and DuoNeb's. 03/15: Discharge diagnoses: 1. Recurrent atrial flutter with rapid ventricular rate s/p cardioversion with episode of A. fib with RVR 2. Chronic systolic heart failure. 3. Orthostatic hypotention with autonomic dysfunction 4. Hypertension, 5. Recurrent depression 6. Urinary retention with BPH 7. History of TIA/stroke 8. Nystagmus 9. 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 Follows with Dr. Kennedy. 10. Pericardial effusion, moderate 11. Mild protein calorie malnutrition, 12. CKD stage II, stable 13. Chronic anticoagulation with Eliquis secondary to A. fib/A flutter 14. Transaminitis, currently asymptomatic ALT at 99 15. Hypothyroidism 16. Coronary artery calcifications 17. Acute exacerbation of COPD. Discharge plan: Return to [facility] Impression and plan of care have been directed as dictated by the signing physician. Etelvina Gallegos nurse practitioner acting as scribe for signing physician. Patient Condition at Discharge: Good Plan - Discharge Summary Discharge Rx Participant: No New Discharge Prescriptions: New RX: Amiodarone [Cordarone] 200 mg PO BID #60 tab RX: buPROPion XL [Wellbutrin XL] 150 mg PO DAILY #30 tab.er.24h RX: Furosemide [Lasix] 20 mg PO DAILY #30 tab RX: guaiFENesin [Mucinex] 600 mg PO Q12HR PRN tablet.er PRN Reason: Cough RX: Levothyroxine Sodium [Synthroid] 50 mcg PO DAILY@0630 #30 tab RX: Melatonin 6 mg PO HS #30 tablet RX: Metoprolol Tartrate [Lopressor] 50 mg PO BID #60 tab RX: Midodrine [ProAmatine] 10 mg PO 0600,1100,1500,2100 #120 tab RX: Nicotine 14Mg/24Hr Patch [Habitrol] 1 patch TRANSDERM DAILY #30 patch RX: predniSONE 10 mg PO DAILY #18 tab Continue RX: Aspirin 81 mg PO DAILY@0800 RX: ALPRAZolam [Xanax] 0.25 mg PO BID PRN #14 tab PRN Reason: Anxiety RX: Nitroglycerin Sl Tabs [Nitrostat] 0.4 mg SUBLINGUAL Q5M PRN PRN Reason: Chest Pain RX: Acetaminophen Tab [Tylenol] 650 mg PO Q4H PRN PRN Reason: Pain RX: Sennosides-Docusate Sodium [Senokot-S] 1 tab PO BID@799,1999 RX: Montelukast Sodium [Singulair] 10 mg PO HS@1999 RX: Atorvastatin Calcium [Lipitor] 40 mg PO HS@1999 RX: Apixaban [Eliquis] 5 mg PO BID@ RX: Tamsulosin HCl [Flomax] 0.4 mg PO DAILY@0800 RX: Albuterol Nebulized (Conc) [Ventolin Nebulized (Conc)] 2.5 mg INHALATION RT-QID PRN PRN Reason: Shortness Of Breath Discontinued Metoprolol Tartrate [Lopressor] 12.5 mg PO BID@799,1999 RX: Spironolactone [Aldactone] 12.5 mg PO DAILY@0800 RX: Midodrine HCl [ProAmatine] 10 mg PO TID@08,12,20 Ciprofloxacin HCl [Cipro] 500 mg PO BID 5 Days #10 tab Finasteride [Proscar] 5 mg PO DAILY@0800 Discharge Medication List RX: Aspirin 81 mg PO DAILY@0800 01/25/18 [History] RX: ALPRAZolam [Xanax] 0.25 mg PO BID PRN #14 tab 02/24/18 [Rx] RX: Acetaminophen Tab [Tylenol] 650 mg PO Q4H PRN 03/01/18 [History] RX: Apixaban [Eliquis] 5 mg PO BID@0800,199903/01/18 [History] RX: Atorvastatin Calcium [Lipitor] 40 mg PO HS@199903/01/18 [History] RX: Montelukast Sodium [Singulair] 10 mg PO HS@199903/01/18 [History] RX: Nitroglycerin Sl Tabs [Nitrostat] 0.4 mg SUBLINGUAL Q5M PRN 03/01/18 [ History] RX: Sennosides-Docusate Sodium [Senokot-S] 1 tab PO BID@0800,199903/01/18 [ History] RX: Albuterol Nebulized (Conc) [Ventolin Nebulized (Conc)] 2.5 mg INHALATION RT- QID PRN 03/07/18 [History] RX: Tamsulosin HCl [Flomax] 0.4 mg PO DAILY@0800 03/07/18 [History] RX: Amiodarone [Cordarone] 200 mg PO BID #60 tab 03/15/18 [Rx] RX: Furosemide [Lasix] 20 mg PO DAILY #30 tab 03/15/18 [Rx] RX: Levothyroxine Sodium [Synthroid] 50 mcg PO DAILY@0630 #30 tab 03/15/18 [Rx] RX: Melatonin 6 mg PO HS #30 tablet 03/15/18 [Rx] RX: Metoprolol Tartrate [Lopressor] 50 mg PO BID #60 tab 03/15/18 [Rx] RX: Midodrine [ProAmatine] 10 mg PO 0600,1100,1500,2100 #120 tab 03/15/18 [Rx] RX: Nicotine 14Mg/24Hr Patch [Habitrol] 1 patch TRANSDERM DAILY #30 patch [Rx] RX: buPROPion XL [Wellbutrin XL] 150 mg PO DAILY #30 tab.er.24h 03/15/18 [Rx] RX: guaiFENesin [Mucinex] 600 mg PO Q12HR PRN tablet.er 03/15/18 [Rx] RX: predniSONE 10 mg PO DAILY #18 tab 03/15/18 [Rx] Follow up Appointment(s)/Referral(s): Pedro Sneed MD [STAFF PHYSICIAN] - 03/22/18 (Office will call you with appointment time. ) [facility], [NON-STAFF] - Alexei Metz MD [Primary Care Provider] - 03/18/18 10:30 am Patient Instructions/Handouts: A-fib (Atrial Fibrillation) (DC) Activity/Diet/Wound Care/Special Instructions: Hold all BP meds if systolic pressure is less than 90. Cardiac diet. Up with assist, fall precautions. Discharge Disposition: HOME WITH HOME HEALTH SERVICES
--- NOTE | 2018-03-17 09:49 | CDI ---
Last Revision, October 2017 Documentation Clarification Form Date: 03/17/18 From: Maria Guadalupe Abraham Phone: If you have a question regarding this query, please contact Altagracia Brown at [phone] between 8am and 5pm Admit Date: 03/07/2018 7:54:00 PM Patient Name: Nathan Allen Visit Number: [id number] Discharge Date: 03/15/18 ATTENTION: The Clinical Documentation Specialists (CDI) and [facility] Coding Staff appreciate your assistance in clarifying documentation. Please respond to the clarification below the line at the bottom and electronically sign. The CDI & [facility] Coding staff will review the response and follow-up if needed. Please note: Queries are made part of the Legal Health Record. If you have any questions, please contact the author of this message via ITS. Dr. Van Patten Atrial Flutter is documented in the discharge summary, your consult note and in the progress notes. History/Risk factors: Patient has a history of atrial flutter status post unsuccessful cardioversion on Eliquis, chronic atrial fib, systolic atrial fib, hypertension and CAD. Clinical Indicators: Elevated heart rate EKG/telemetry: Initial EKG consistent with atrial flutter with 2 to one conduction in atrial fib at this point. Treatment: IV and PO Amiodarone In your professional opinion, in order to capture the severity of condition; can you please clarify the type of atrial flutter if known? X Typical/Type I Atypical/Type II Other, please specify Unable to determine MTDD
--- NOTE | 2018-03-17 09:58 | CDI ---
Last Revision, October 2017 Documentation Clarification Form Date: 03/17/18 From: Maria Guadalupe Abraham Phone: If you have a question regarding this query, please contact Altagracia Brown at [phone] between 8am and 5pm Admit Date: 03/07/2018 7:54:00 PM Patient Name: Nathan Allen Visit Number: [id number] Discharge Date: 03/15/18 ATTENTION: The Clinical Documentation Specialists (CDI) and [facility] Coding Staff appreciate your assistance in clarifying documentation. Please respond to the clarification below the line at the bottom and electronically sign. The CDI & [facility] Coding staff will review the response and follow-up if needed. Please note: Queries are made part of the Legal Health Record. If you have any questions, please contact the author of this message via ITS. Dr. Alissa Henry Conflicting documentation has been found in the medical record. Mild protein calorie malnutrition is documented in the discharge summary, H&P and in progress notes throughout the stay. Documentation in the parts puller's assessment states overweight. The patien'ts BMI is 30.3. There is no documentation of muscle wasting, muscle weakness or loss of weight. Albumin is 3.7 and total protein is 6.5. History/Risk Factors: Patient has a history of atrial flutter, atrial fib, CHF , CAD, hypertension and was dehydrated on admission. In your opinion what is the most clinically appropriate diagnosis for this patient? Malnutrition(specify the degree) Overweight Obesity Other explanation of clinical findings Unable to determine (no explanation for clinical findings) DX ADD MILD PROTEIN MALNUTRITION DOCUMENTED, PLS LOOK BACK PRVIOUS AND CURRENT RECORDS, PATIENT MOST LIKELY HAD ALBUMIN INFUSION, WITH HYPOTENSION VERY LABILE BLOOD PRESSURE HEMODYNAMIC INSTABILITY. BMI 30 DOES NOT TAKE INTO ACCOUNT WATER WEIGHT WITH GENERALIZED EDEMA NOTED MTDD
--- NOTE | 2018-03-21 14:27 | CDI ---
Last Revision, October 2017 Documentation Clarification Form Date: 03/21/18 From: Maria Guadalupe Abraham Phone: If you have a question regarding this query, please contact Altagracia Brown at [phone] between 8am and 5pm. Admit Date: 03/07/2018 7:54:00 PM Patient Name: Nathan Allen Visit Number: [id number] Discharge Date: 03/15/18 ATTENTION: The Clinical Documentation Specialists (CDI) and [facility] Coding Staff appreciate your assistance in clarifying documentation. Please respond to the clarification below the line at the bottom and electronically sign. The CDI & [facility] Coding staff will review the response and follow-up if needed. Please note: Queries are made part of the Legal Health Record. If you have any questions, please contact the author of this message via ITS. Dr. Van Patten Thank you for signing the previous query. Please document a response before signing this query. Atrial Flutter is documented in the discharge summary, your consult note and in the progress notes. History/Risk factors: Patient has a history of atrial flutter status post unsuccessful cardioversion on Eliquis, chronic atrial fib, systolic atrial fib, hypertension and CAD. Clinical Indicators: Elevated heart rate EKG/telemetry: Initial EKG consistent with atrial flutter with 2 to one conduction in atrial fib at this point. Treatment: IV and PO Amiodarone In your professional opinion, in order to capture the severity of condition; can you please clarify the type of atrial flutter if known? Typical/Type I Atypical/Type II Other, please specify Unable to determine MTDD
--- NOTE | 2018-03-23 09:05 | CDI ---
Last Revision, October 2017 Documentation Clarification Form Date: 03/23/18 From: Maria Guadalupe Abraham Phone: If you have a question regarding this query, please contact Altagracia Brown at [phone] between 8am and 5pm Admit Date: 03/07/2018 7:54:00 PM Patient Name: Nathan Allen Visit Number: [id number] Discharge Date: ATTENTION: The Clinical Documentation Specialists (CDI) and [facility] Coding Staff appreciate your assistance in clarifying documentation. Please respond to the clarification below the line at the bottom and electronically sign. The CDI & [facility] Coding staff will review the response and follow-up if needed. Please note: Queries are made part of the Legal Health Record. If you have any questions, please contact the author of this message via ITS. Dr. Van Patten Thank you for signing the previous query. Please document a response before signing this query. Atrial Flutter is documented in the discharge summary, your consult note and in the progress notes. History/Risk factors: Patient has a history of atrial flutter status post unsuccessful cardioversion on Eliquis, chronic atrial fib, systolic atrial fib, hypertension and CAD. Clinical Indicators: Elevated heart rate EKG/telemetry: Initial EKG consistent with atrial flutter with 2 to one conduction in atrial fib at this point. Treatment: IV and PO Amiodarone In your professional opinion, in order to capture the severity of condition; can you please clarify the type of atrial flutter if known? X Typical/Type I Atypical/Type II Other, please specify Unable to determine MTDD
--- NOTE | 2018-03-24 16:36 | CDI ---
Last Revision, October 2017 Documentation Clarification Form Date: 03/24/18 From: Maria Guadalupe Abraham Phone: If you have a question regarding this query, please contact Altagracia Brown at [phone] between 8am and 5pm. Admit Date: 03/07/2018 7:54:00 PM Patient Name: Nathan Allen Visit Number: [id number] Discharge Date: 03/15/18 ATTENTION: The Clinical Documentation Specialists (CDI) and [facility] Coding Staff appreciate your assistance in clarifying documentation. Please respond to the clarification below the line at the bottom and electronically sign. The CDI & [facility] Coding staff will review the response and follow-up if needed. Please note: Queries are made part of the Legal Health Record. If you have any questions, please contact the author of this message via ITS. Etelvina Gallegos NP Atrial Flutter is documented in the discharge summary, your consult note and in the progress notes. History/Risk factors: Patient has a history of atrial flutter status post unsuccessful cardioversion on Eliquis, chronic atrial fib, systolic atrial fib, hypertension and CAD. Clinical Indicators: Elevated heart rate EKG/telemetry: Initial EKG consistent with atrial flutter with 2 to one conduction in atrial fib at this point. Treatment: IV and PO Amiodarone In your professional opinion, in order to capture the severity of condition; can you please clarify the type of atrial flutter if known? Typical/Type I Atypical/Type II Other, please specify Unable to determine you will have to ask cardiology electrophysiology MTDD
== END 2018-03-15 16:16 | disposition home health service (06) | DRG 308 ==
LOC: EC 16:40 → 6SEL 19:54 → 4MS4W 03-14 09:39
PROVIDERS: ADMIT Family Medicine; ATTEND Family Medicine
DX: I48.3 Typical atrial flutter (principal); I50.23 Acute on chronic systolic (congestive) heart failure; F33.9 Major depressive disorder, recurrent, unspecified; E44.1 Mild protein-calorie malnutrition; G45.8 Other transient cerebral ischemic attacks and related syndromes; I31.3 Pericardial effusion (noninflammatory); I13.0 Hypertensive heart and chronic kidney disease with heart failure and stage 1 through stage 4 chronic kidney disease, or unspecified chronic kidney disease; J44.1 Chronic obstructive pulmonary disease with (acute) exacerbation; R45.851 Suicidal ideations; J98.11 Atelectasis; I42.9 Cardiomyopathy, unspecified; E87.5 Hyperkalemia; I27.20 Pulmonary hypertension, unspecified; I08.1 Rheumatic disorders of both mitral and tricuspid valves; E03.9 Hypothyroidism, unspecified; I48.2 Chronic atrial fibrillation; G90.9 Disorder of the autonomic nervous system, unspecified; E86.0 Dehydration; E78.5 Hyperlipidemia, unspecified; H55.00 Unspecified nystagmus; H91.90 Unspecified hearing loss, unspecified ear; I25.10 Atherosclerotic heart disease of native coronary artery without angina pectoris; I95.1 Orthostatic hypotension; N18.2 Chronic kidney disease, stage 2 (mild); N40.1 Benign prostatic hyperplasia with lower urinary tract symptoms; R33.8 Other retention of urine; R09.02 Hypoxemia; R74.0 Nonspecific elevation of levels of transaminase and lactic acid dehydrogenase [LDH]; Z79.01 Long term (current) use of anticoagulants; Z79.82 Long term (current) use of aspirin; Z79.899 Other long term (current) drug therapy; Z91.030 Bee allergy status; Z86.73 Personal history of transient ischemic attack (TIA), and cerebral infarction without residual deficits; Z87.891 Personal history of nicotine dependence; Z91.5 Personal history of self-harm; Z68.30 Body mass index [BMI] 30.0-30.9, adult
CPT/HCPCS: 36415; 71045; 71046; 80048; 80053; 80061; 81001; 82024; 82533; 82550; 82553; 83605; 83735; 83880; 84100; 84132; 84439; 84443; 84484; 85025; 85610; 85730; 87086; 93005; 93306; 94640; 94760; 96361; 96365; 96376; 99285

== ENCOUNTER 2018-03-17 16:51 | Inpatient (IN) | payer MEDICARE ==
[2018-03-17] MEDS ORDERED: ALBUTEROL NEBULIZED 2.5 MG/3 ML INHALATION STA (17:05)
[2018-03-17] MEDS ORDERED: DILTIAZEM 50 MG in SODIUM CHLORIDE 0.9% 40 ML IV ONE (17:05)
[2018-03-17] MEDS ORDERED: SODIUM CHLORIDE 0.9% 1,000 ML IV STA (17:05)
[2018-03-17] MEDS ORDERED: IPRATROPIUM 0.5 MG/2.5 ML NEBU INHALATION STA (17:05)
[2018-03-17] MEDS ORDERED: methylPREDNISolone SOD SUCCI 125 MG/2 ML VIAL IV STA (17:05)
[2018-03-17 17:34] LABS: Anisocytosis Slight; Basophils % (A) 0 %; Eosinophils % (A) 0 %; HCT 36.1 % (39.0-53.0); HGB 11.3 gm/dL (13.0-17.5); Hypochromasia Moderate; Lymphocytes # (A) 0.2 k/uL (1.0-4.8); Lymphocytes % (A) 3 %; MCHC 31.3 g/dL (31.0-37.0); MCV 83.1 fL (80.0-100.0); Mean Platelet Volume 8.3; Monocytes # (A) 0.3 k/uL (0-1.0); Monocytes % (A) 5 %; Neutrophils # (A) 6.3 k/uL (1.3-7.7); Neutrophils % (A) 91 %; Platelet Count 244 k/uL (150-450); Poikilocytosis Moderate; RBC 4.35 m/uL (4.30-5.90); WBC 6.9 k/uL (3.8-10.6)
[2018-03-17 17:43] LABS: ALT 278 U/L (21-72); AST 113 U/L (17-59); Albumin 3.1 g/dL (3.5-5.0); Alkaline Phosphatase 116 U/L (38-126); Anion Gap 9 mmol/L; Blood Urea Nitrogen 26 mg/dL (9-20); Calcium 7.8 mg/dL (8.4-10.2); Carbon Dioxide 28 mmol/L (22-30); Chloride 97 mmol/L (98-107); Glucose 109 mg/dL (74-99); INR 1.4 (<1.2); Magnesium 2.1 mg/dL (1.6-2.3); Partial Thromboplastin Time 24.2 sec (22.0-30.0); Potassium 3.9 mmol/L (3.5-5.1); Prothrombin Time 12.7 sec (9.0-12.0); Sodium 134 mmol/L (137-145); Total Bilirubin 0.5 mg/dL (0.2-1.3); Total Protein 5.1 g/dL (6.3-8.2)
--- NOTE | 2018-03-17 18:09 | XR ---
EXAMINATION TYPE: XR chest 2V DATE OF EXAM: 03/17/2018 COMPARISON: 03/14/2018 HISTORY: Difficulty breathing TECHNIQUE: Frontal and lateral views of the chest are obtained. FINDINGS: There is pulmonary vascular congestion. Heart is enlarged. There is some blunting of costo phrenic angles. Thoracic aorta is atheromatous. There are chest leads. Bony thorax is intact. IMPRESSION: Congestive heart failure with pleural effusions. Pulmonary congestion is worse than last exam.
[2018-03-17 18:13] LABS: Troponin I 0.013 ng/mL (0.000-0.034)
[2018-03-17 18:14] LABS: Creatine Kinase MB 3.1 ng/mL (0.0-2.4)
--- NOTE | 2018-03-17 18:45 | ED ---
General Adult HPI - General Chief complaint: Recheck/Abnormal Lab/Rx Stated complaint: TACHYCARDIA Time Seen by Provider: 03/17/18 17:04 Source: patient, EMS, RN notes reviewed, old records reviewed Mode of arrival: EMS Limitations: no limitations - History of Present Illness Initial comments: This is a 75-year-old male the ER for evaluation. Patient does say for evaluation of shortness of breath. Patient's poor strain history obtained from chart, EMS and transfer paperwork. Patient telemetry sent ER for low pulse ox elevated heart rate - Related Data Home Medications Medication Instructions Recorded Confirmed Aspirin 81 mg PO DAILY@0800 01/25/18 03/17/18 Acetaminophen Tab [Tylenol] 650 mg PO Q4H PRN 03/01/18 03/17/18 Apixaban [Eliquis] 5 mg PO BID@799,199903/01/18 03/17/18 Atorvastatin Calcium [Lipitor] 40 mg PO HS@199903/01/18 03/17/18 Montelukast Sodium [Singulair] 10 mg PO HS@199903/01/18 03/17/18 Nitroglycerin Sl Tabs [Nitrostat] 0.4 mg SUBLINGUAL Q5M PRN 03/01/18 03/17/18 Albuterol Nebulized (Conc) 2.5 mg INHALATION RT-QID PRN 03/07/18 03/17/18 [Ventolin Nebulized (Conc)] Tamsulosin HCl [Flomax] 0.4 mg PO DAILY@79903/07/18 03/17/18 Amiodarone [Cordarone] 200 mg PO BID 03/17/18 03/17/18 Finasteride [Proscar] 5 mg PO DAILY@79903/17/18 03/17/18 Furosemide [Lasix] 20 mg PO DAILY@79903/17/18 03/17/18 Midodrine [ProAmatine] 10 mg PO QID@06,11,15,21 03/17/18 03/17/18 Sennosides [Senokot] 8.6 mg PO BID@08,199903/17/18 03/17/18 buPROPion XL [Wellbutrin XL] 150 mg PO DAILY@79903/17/18 03/17/18 predniSONE See Taper PO DIRECTED 03/17/18 03/17/18 Levothyroxine Sodium [Synthroid] 50 mcg PO DAILY 03/18/18 03/18/18 Metoprolol Tartrate [Lopressor] 50 mg PO BID 03/18/18 03/18/18 Previous Rx's Medication Instructions Recorded ALPRAZolam [Xanax] 0.25 mg PO BID PRN #14 tab 02/24/18 Melatonin 6 mg PO HS #30 tablet 03/15/18 Nicotine 14Mg/24Hr Patch [Habitrol] 1 patch TRANSDERM DAILY #30 patch 03/15/18 Allergies Allergy/AdvReac Type Severity Reaction Status Date / Time venom-honey bee Allergy Anaphylaxis Verified 03/17/18 17:31 Review of Systems ROS Statement: Those systems with pertinent positive or pertinent negative responses have been documented in the HPI. ROS Other: All systems not noted in ROS Statement are negative. Past Medical History Past Medical History: Atrial Flutter, Heart Failure, COPD, CVA/TIA, Hearing Disorder / Deafness, Hypertension, Prostate Disorder History of Any Multi-Drug Resistant Organisms: None Reported Past Surgical History: Back Surgery Additional Past Surgical History / Comment(s): carotid endardectomy Past Anesthesia/Blood Transfusion Reactions: No Reported Reaction Past Psychological History: No Psychological Hx Reported Smoking Status: Former smoker Past Alcohol Use History: None Reported Past Drug Use History: None Reported - Past Family History Father Additional Family Medical History / Comment(s): father at the age of 70, sudden unclear etiology Mother Additional Family Medical History / Comment(s): mother of old age. Patient has no siblings patient has a power of health care attorney who does not live with him. General Exam Limitations: no limitations General appearance: alert, in no apparent distress Head exam: Present: atraumatic, normocephalic, normal inspection Eye exam: Present: normal appearance, PERRL, EOMI. Absent: scleral icterus, conjunctival injection, periorbital swelling ENT exam: Present: normal exam, mucous membranes moist Neck exam: Present: normal inspection. Absent: tenderness, meningismus, lymphadenopathy Respiratory exam: Present: rales, decreased breath sounds, prolonged expiratory. Absent: respiratory distress, wheezes, rhonchi, stridor Cardiovascular Exam: Present: tachycardia, irregular rhythm, normal heart sounds. Absent: systolic murmur, diastolic murmur, rubs, gallop, clicks GI/Abdominal exam: Present: soft, normal bowel sounds. Absent: distended, tenderness, guarding, rebound, rigid Extremities exam: Present: normal inspection, full ROM, normal capillary refill. Absent: tenderness, pedal edema, joint swelling, calf tenderness Back exam: Present: normal inspection Neurological exam: Present: alert, oriented X3, CN II-XII intact Psychiatric exam: Present: normal affect, normal mood Skin exam: Present: warm, dry, intact, normal color. Absent: rash Course Vital Signs 03/17/18 03/17/18 03/17/18 16:51 16:56 17:50 Pulse Rate 98 97 95 Respiratory 20 16 20 Rate Blood Pressure 112/56 109/60 109/58 O2 Sat by Pulse 99 92 L 100 Oximetry 03/17/18 03/17/18 03/17/18 18:01 18:18 19:10 Pulse Rate 96 98 111 H Respiratory 18 18 22 Rate Blood Pressure 110/79 O2 Sat by Pulse 100 Oximetry EKG Findings - EKG Comments: EKG Findings:: EKG shows a flutter rate of 90, QRS 116, QTc 481 Medical Decision Making - Medical Decision Making 70 female no history of A. fib coming in for evaluation of tachycardia, positive CHF on x-ray, patient be admitted for diaphoresis rate control and hemodynamic monitoring - Lab Data Result diagrams: 03/18/18 05:36 03/18/18 05:36 Lab Results 03/17/18 03/17/18 03/17/18 Range/Units 17:21 17:21 17:21 WBC 6.9 (3.8-10.6) k/uL RBC 4.35 (4.30-5.90) m/uL Hgb 11.3 L (13.0-17.5) gm/dL Hct 36.1 L (39.0-53.0) % MCV 83.1 (80.0-100.0) fL MCH 26.0 (25.0-35.0) pg MCHC 31.3 (31.0-37.0) g/dL RDW 18.0 H (11.5-15.5) % Plt Count 244 (150-450) k/uL Neutrophils % 91 % Lymphocytes % 3 % Monocytes % 5 % Eosinophils % 0 % Basophils % 0 % Neutrophils # 6.3 (1.3-7.7) k/uL Lymphocytes # 0.2 L (1.0-4.8) k/uL Monocytes # 0.3 (0-1.0) k/uL Eosinophils # 0.0 (0-0.7) k/uL Basophils # 0.0 (0-0.2) k/uL Hypochromasia Moderate Poikilocytosis Moderate Anisocytosis Slight PT (9.0-12.0) sec INR (<1.2) APTT (22.0-30.0) sec Sodium 134 L (137-145) mmol/L Potassium 3.9 (3.5-5.1) mmol/L Chloride 97 L (98-107) mmol/L Carbon Dioxide 28 (22-30) mmol/L Anion Gap 9 mmol/L BUN 26 H (9-20) mg/dL Creatinine 0.94 (0.66-1.25) mg/dL Est GFR (CKD-EPI)AfAm >90 (>60 ml/min/1.73 sqM) Est GFR (CKD-EPI)NonAf 81 (>60 ml/min/1.73 sqM) Glucose 109 H (74-99) mg/dL Calcium 7.8 L (8.4-10.2) mg/dL Magnesium 2.1 (1.6-2.3) mg/dL Total Bilirubin 0.5 (0.2-1.3) mg/dL AST 113 H (17-59) U/L ALT 278 H (21-72) U/L Alkaline Phosphatase 116 (38-126) U/L Total Creatine Kinase 75 (55-170) U/L CK-MB (CK-2) 3.1 H* (0.0-2.4) ng/mL CK-MB (CK-2) Rel Index 4.1 Troponin I 0.013 (0.000-0.034) ng/mL NT-Pro-B Natriuret Pep pg/mL Total Protein 5.1 L (6.3-8.2) g/dL Albumin 3.1 L (3.5-5.0) g/dL 03/17/18 03/17/18 Range/Units 17:21 17:21 WBC (3.8-10.6) k/uL RBC (4.30-5.90) m/uL Hgb (13.0-17.5) gm/dL Hct (39.0-53.0) % MCV (80.0-100.0) fL MCH (25.0-35.0) pg MCHC (31.0-37.0) g/dL RDW (11.5-15.5) % Plt Count (150-450) k/uL Neutrophils % % Lymphocytes % % Monocytes % % Eosinophils % % Basophils % % Neutrophils # (1.3-7.7) k/uL Lymphocytes # (1.0-4.8) k/uL Monocytes # (0-1.0) k/uL Eosinophils # (0-0.7) k/uL Basophils # (0-0.2) k/uL Hypochromasia Poikilocytosis Anisocytosis PT 12.7 H (9.0-12.0) sec INR 1.4 H (<1.2) APTT 24.2 (22.0-30.0) sec Sodium (137-145) mmol/L Potassium (3.5-5.1) mmol/L Chloride (98-107) mmol/L Carbon Dioxide (22-30) mmol/L Anion Gap mmol/L BUN (9-20) mg/dL Creatinine (0.66-1.25) mg/dL Est GFR (CKD-EPI)AfAm (>60 ml/min/1.73 sqM) Est GFR (CKD-EPI)NonAf (>60 ml/min/1.73 sqM) Glucose (74-99) mg/dL Calcium (8.4-10.2) mg/dL Magnesium (1.6-2.3) mg/dL Total Bilirubin (0.2-1.3) mg/dL AST (17-59) U/L ALT (21-72) U/L Alkaline Phosphatase (38-126) U/L Total Creatine Kinase (55-170) U/L CK-MB (CK-2) (0.0-2.4) ng/mL CK-MB (CK-2) Rel Index Troponin I (0.000-0.034) ng/mL NT-Pro-B Natriuret Pep 02260 pg/mL Total Protein (6.3-8.2) g/dL Albumin (3.5-5.0) g/dL - Radiology Data Radiology results: report reviewed (Chest x-ray positive for CHF), image reviewed Disposition Clinical Impression: Atrial fibrillation with RVR, CHF (congestive heart failure) Disposition: ADMITTED IP TO THIS HOSP Condition: Fair Is patient prescribed a controlled substance at d/c from ED?: No
[2018-03-17] MEDS ORDERED: FUROSEMIDE 10 MG/ML 4 ML VIAL IV SCH (19:00)
[2018-03-17 20:31] VITALS: BMI 30.3
[2018-03-17] MEDS ORDERED: ALBUTEROL NEBULIZED 2.5 MG/3 ML INHALATION PRN (21:18)
[2018-03-17] MEDS ORDERED: NITROGLYCERIN SL TABS 0.4 MG TAB SUBLINGUAL PRN (21:18)
[2018-03-17] MEDS: NICOTINE 14MG/24HR PATCH TRANSDERM SCH (22:14)
[2018-03-17] MEDS: MELATONIN 3 MG TABLET PO SCH (22:15)
[2018-03-17] MEDS: AMIODARONE 200 MG TAB PO SCH (22:15)
[2018-03-17] MEDS: MONTELUKAST 10 MG TAB PO SCH (22:15)
[2018-03-17] MEDS: ATORVASTATIN 40 MG TAB PO SCH (22:15)
[2018-03-17] MEDS: MIDODRINE 5 MG TAB PO SCH (22:15)
[2018-03-17] MEDS: APIXABAN 5 MG TAB PO SCH (22:15)
[2018-03-18] MEDS: MIDODRINE 5 MG TAB PO SCH ×4 (05:49→19:59)
[2018-03-18 06:32] LABS: Anion Gap 11 mmol/L; Blood Urea Nitrogen 22 mg/dL (9-20); Calcium 7.9 mg/dL (8.4-10.2); Carbon Dioxide 30 mmol/L (22-30); Chloride 95 mmol/L (98-107); Glucose 122 mg/dL (74-99); Potassium 3.4 mmol/L (3.5-5.1); Sodium 136 mmol/L (137-145)
[2018-03-18 06:39] LABS: Anisocytosis Slight; HGB 11.5 gm/dL (13.0-17.5); Hypochromasia Marked; MCH 25.7 pg (25.0-35.0); MCV 82.9 fL (80.0-100.0); Mean Platelet Volume 9.8; Platelet Count 205 k/uL (150-450); Poikilocytosis Moderate; RBC 4.47 m/uL (4.30-5.90); RDW 17.9 % (11.5-15.5); WBC 4.2 k/uL (3.8-10.6)
[2018-03-18] MEDS: METOPROLOL TARTRATE 50 MG TAB PO SCH ×2 (06:43→21:17)
[2018-03-18] MEDS: LEVOTHYROXINE 50 MCG TAB PO SCH ×2 (06:43→06:54)
[2018-03-18 07:03] LABS: Lymphocytes # (M) 0.08 k/uL (1.0-4.8); Monocytes # (M) 0.34 k/uL (0-1.0); Neutrophils # (M) 3.78 k/uL (1.3-7.7); Neutrophils % (M) 90 %; Nucleated Red Blood Cells 0 /100 WBC (0-0); Total Cells Counted 100
[2018-03-18 07:05] LABS: Target Cells Present
[2018-03-18] MEDS ORDERED: FUROSEMIDE 20 MG TAB PO SCH (08:00)
[2018-03-18] MEDS ORDERED: ASPIRIN 81 MG PO SCH (08:00)
[2018-03-18] MEDS ORDERED: POTASSIUM CHLORIDE ER 20 MEQ TAB.ER PO STA (08:29)
[2018-03-18] MEDS: AMIODARONE 200 MG TAB PO SCH ×2 (08:36→20:20)
[2018-03-18] MEDS ORDERED: predniSONE 10 MG TAB PO SCH (09:00)
[2018-03-18] MEDS: SENNOSIDES 8.6 MG TAB PO SCH ×2 (10:10→19:59)
[2018-03-18] MEDS: APIXABAN 5 MG TAB PO SCH ×2 (10:11→19:59)
[2018-03-18] MEDS: TAMSULOSIN 0.4 MG CAP.ER.24H PO SCH (10:12)
[2018-03-18] MEDS: NICOTINE 14MG/24HR PATCH TRANSDERM SCH (10:12)
[2018-03-18] MEDS: buPROPion XL 150 MG TAB.ER.24H PO SCH (10:12)
[2018-03-18] MEDS: FINASTERIDE 5 MG TAB PO SCH (10:12)
--- NOTE | 2018-03-18 10:20 | P.CRDCN ---
History of Present Illness Consult date: 03/18/18 Requesting physician: Aki Moura Consult reason: congestive heart failure Chief complaint: Shortness of breath History of present illness: 6 is a 73-year-old gentleman who was just discharged from the hospital a day ago returning with shortness of breath. He follows with Dr. Nicky Rogers in the office, known history of hypertension, atrial fibrillation with prior attempted cardioversion, on Eliquis for anticoagulation, prior CVA, COPD, nicotine use. Patient was just discharged from the hospital after being admitted with atrial fibrillation with a rapid ventricular response, went home and states he was quite short of breath for this reason came back for subsequent admission. Chest x-ray on admission showed congestive heart failure with pleural effusions, pulmonary congestion worse than prior exam. EKG shows atrial fibrillation with a moderately rapid ventricular response.blood pressure on admission here 112/50 with a heart rate in the 90s, 99% on 2 L of oxygen. Blood pressure this morning is 78/50 with a heart rate in the 60s, 93% on 2 L of oxygen. White blood cell count 4.2, hemoglobin 11.5, platelet count 205. Sodium 136, potassium 3.4, BUN 22, creatinine 0.8. AST 113, ALT 278, BNP level 10,800., troponin 0.013, 0.012, 0.015. An echocardiogram with Doppler study was performed earlier this month on this most recent admission, revealed an ejection fraction of 20-25%, mild to moderate MR. Past Medical History Past Medical History: Atrial Flutter, Heart Failure, COPD, CVA/TIA, Hearing Disorder / Deafness, Hypertension, Prostate Disorder History of Any Multi-Drug Resistant Organisms: None Reported Past Surgical History: Back Surgery Additional Past Surgical History / Comment(s): carotid endardectomy Past Anesthesia/Blood Transfusion Reactions: No Reported Reaction Past Psychological History: No Psychological Hx Reported Smoking Status: Former smoker Past Alcohol Use History: None Reported Past Drug Use History: None Reported - Past Family History Father Additional Family Medical History / Comment(s): father at the age of 70, sudden unclear etiology Mother Additional Family Medical History / Comment(s): mother of old age. Patient has no siblings patient has a power of sports attorney who does not live with him. Medications and Allergies Home Medications Medication Instructions Recorded Confirmed Type Aspirin 81 mg PO DAILY@0800 01/25/18 03/17/18 History ALPRAZolam [Xanax] 0.25 mg PO BID PRN #14 tab 02/24/18 03/17/18 Rx Acetaminophen Tab [Tylenol] 650 mg PO Q4H PRN 03/01/18 03/17/18 History Apixaban [Eliquis] 5 mg PO BID@08,199903/01/18 03/17/18 History Atorvastatin Calcium [Lipitor] 40 mg PO HS@199903/01/18 03/17/18 History Montelukast Sodium [Singulair] 10 mg PO HS@199903/01/18 03/17/18 History Nitroglycerin Sl Tabs [Nitrostat] 0.4 mg SUBLINGUAL Q5M PRN 03/01/18 03/17/18 History Albuterol Nebulized (Conc) 2.5 mg INHALATION RT-QID PRN 03/07/18 03/17/18 History [Ventolin Nebulized (Conc)] Tamsulosin HCl [Flomax] 0.4 mg PO DAILY@79903/07/18 03/17/18 History Melatonin 6 mg PO HS #30 tablet 03/15/18 03/17/18 Rx Nicotine 14Mg/24Hr Patch [Habitrol] 1 patch TRANSDERM DAILY #30 patch 03/15/18 03/17/18 Rx Amiodarone [Cordarone] 200 mg PO BID 03/17/18 03/17/18 History Finasteride [Proscar] 5 mg PO DAILY@79903/17/18 03/17/18 History Furosemide [Lasix] 20 mg PO DAILY@79903/17/18 03/17/18 History Midodrine [ProAmatine] 10 mg PO QID@06,11,15,21 03/17/18 03/17/18 History Sennosides [Senokot] 8.6 mg PO BID@799,199903/17/18 03/17/18 History buPROPion XL [Wellbutrin XL] 150 mg PO DAILY@79903/17/18 03/17/18 History predniSONE See Taper PO DIRECTED 03/17/18 03/17/18 History Levothyroxine Sodium [Synthroid] 50 mcg PO DAILY 03/18/18 03/18/18 History Metoprolol Tartrate [Lopressor] 50 mg PO BID 03/18/18 03/18/18 History Allergies Allergy/AdvReac Type Severity Reaction Status Date / Time venom-honey bee Allergy Anaphylaxis Verified 03/17/18 17:31 Physical Exam Vitals: Vital Signs Temp Pulse Pulse Resp BP BP BP 03/18/18 08:15 96.9 F L 63 20 75/61 78/54 03/18/18 06:30 118 H 106/85 03/18/18 03:22 119 H 20 03/18/18 03:21 96.9 F L 119 H 20 93/64 03/17/18 23:30 96.9 F L 97 20 107/69 03/17/18 20:24 120 H 20 135/60 03/17/18 20:15 120 H 20 03/17/18 19:10 111 H 22 110/79 03/17/18 18:18 98 18 03/17/18 18:01 96 18 03/17/18 17:50 95 20 109/58 03/17/18 16:56 97 16 109/60 03/17/18 16:51 98 20 112/56 Pulse Ox 03/18/18 08:15 93 L 03/18/18 06:30 03/18/18 03:22 03/18/18 03:21 97 03/17/18 23:30 95 03/17/18 20:24 98 03/17/18 20:15 03/17/18 19:10 100 03/17/18 18:18 03/17/18 18:01 03/17/18 17:50 100 03/17/18 16:56 92 L 03/17/18 16:51 99 Intake and Output 03/17/18 03/18/18 03/18/18 22:59 06:59 14:59 Intake Total 100 236 Output Total 1025 Balance -925 236 Intake: Oral 100 236 Output: Urine 1025 Other: Voiding Method Toilet Toilet Urinal Urinal # Voids 2 1 Weight 90.5 kg 90.5 kg PHYSICAL EXAMINATION: HEENT: Head is atraumatic, normocephalic. Pupils equal, round. Neck is supple. There is no elevated jugular venous pressure. HEART EXAMINATION: Heart S1 and S2 irregularly irregular a systolic murmur is heard. CHEST EXAMINATION: Lungs reveal scattered coarse wheezing and rhonchi throughout ABDOMEN: Soft, nontender. Bowel sounds are heard. No organomegaly noted. EXTREMITIES: 2+ peripheral pulses with evidence of peripheral edema and no calf tenderness noted. NEUROLOGIC patient is awake, alert and oriented -3. . Results 03/18/18 05:36 03/18/18 05:36 Cardiac Enzymes 03/17/18 03/17/18 03/17/18 Range/Units 17:21 17:21 23:33 AST 113 H (17-59) U/L CK-MB (CK-2) 3.1 H* (0.0-2.4) ng/mL Troponin I 0.013 <0.012 (0.000-0.034) ng/mL 03/18/18 Range/Units 05:36 AST (17-59) U/L CK-MB (CK-2) (0.0-2.4) ng/mL Troponin I 0.015 (0.000-0.034) ng/mL Coagulation 03/17/18 Range/Units 17:21 PT 12.7 H (9.0-12.0) sec APTT 24.2 (22.0-30.0) sec CBC 03/17/18 03/18/18 Range/Units 17:21 05:36 WBC 6.9 4.2 (3.8-10.6) k/uL RBC 4.35 4.47 (4.30-5.90) m/uL Hgb 11.3 L 11.5 L (13.0-17.5) gm/dL Hct 36.1 L 37.0 L (39.0-53.0) % Plt Count 244 205 (150-450) k/uL Comprehensive Metabolic Panel 03/17/18 03/18/18 Range/Units 17:21 05:36 Sodium 134 L 136 L (137-145) mmol/L Potassium 3.9 3.4 L (3.5-5.1) mmol/L Chloride 97 L 95 L (98-107) mmol/L Carbon Dioxide 28 30 (22-30) mmol/L BUN 26 H 22 H (9-20) mg/dL Creatinine 0.94 0.87 (0.66-1.25) mg/dL Glucose 109 H 122 H (74-99) mg/dL Calcium 7.8 L 7.9 L (8.4-10.2) mg/dL AST 113 H (17-59) U/L ALT 278 H (21-72) U/L Alkaline Phosphatase 116 (38-126) U/L Total Protein 5.1 L (6.3-8.2) g/dL Albumin 3.1 L (3.5-5.0) g/dL Current Medications Generic Name Dose Route Start Last Admin Trade Name Freq PRN Reason Stop Dose Admin Acetaminophen 650 mg 03/17/18 21:18 Tylenol Tab PO Q4H PRN Pain Albuterol Sulfate 2.5 mg 03/17/18 21:18 Ventolin Nebulized INHALATION RT-QID PRN Shortness Of Breath Alprazolam 0.25 mg 03/17/18 21:18 Xanax PO BID PRN Anxiety Amiodarone HCl 200 mg 03/17/18 21:45 03/18/18 08:36 Cordarone PO 200 mg BID [facility] Administration Apixaban 5 mg 03/17/18 21:20 03/17/18 22:15 Eliquis PO 5 mg BID@0800,1999 [facility] Administration Aspirin 81 mg 03/18/18 08:00 Aspirin PO DAILY@0800 [facility] Atorvastatin Calcium 40 mg 03/17/18 21:20 03/17/18 22:15 Lipitor PO 40 mg HS@1999 [facility] Administration Bupropion HCl 150 mg 03/18/18 08:00 Wellbutrin Xl PO DAILY@0800 [facility] Finasteride 5 mg 03/18/18 08:00 Proscar PO DAILY@0800 [facility] Furosemide 20 mg 03/18/18 08:00 Lasix PO DAILY@0800 [facility] Levothyroxine Sodium 50 mcg 03/18/18 06:15 03/18/18 06:54 Synthroid PO Not Given DAILY [facility] Melatonin 6 mg 03/17/18 21:30 03/17/18 22:15 Melatonin PO 6 mg HS [facility] Administration Metoprolol Tartrate 50 mg 03/18/18 09:00 03/18/18 06:43 Lopressor PO 50 mg BID [facility] Administration Midodrine 10 mg 03/17/18 21:20 03/18/18 05:49 Proamatine PO 10 mg 0600,1100,1500,2100 [facility] Administration Montelukast Sodium 10 mg 03/17/18 21:19 03/17/18 22:15 Singulair PO 10 mg HS@1999 [facility] Administration Nicotine 1 patch 03/17/18 21:30 03/17/18 22:14 Habitrol 14mg/24hr Patch TRANSDERM 1 patch DAILY [facility] Administration Nitroglycerin 0.4 mg 03/17/18 21:18 Nitrostat SUBLINGUAL Q5M PRN Chest Pain Prednisone 30 mg 03/18/18 09:00 PO 03/22/18 08:59 DAILY [facility] Taper Senna 8.6 mg 03/18/18 08:00 Senokot PO BID@0800,1999 [facility] Tamsulosin HCl 0.4 mg 03/18/18 08:00 Flomax PO DAILY@0800 [facility] Intake and Output 03/17/18 03/18/18 03/18/18 22:59 06:59 14:59 Intake Total 100 236 Output Total 1025 Balance -925 236 Intake: Oral 100 236 Output: Urine 1025 Other: Voiding Method Toilet Toilet Urinal Urinal # Voids 2 1 Weight 90.5 kg 90.5 kg 03/18/18 05:36 03/18/18 05:36 EKG Interpretations (text) EKG shows atrial fibrillation with a moderately rapid ventricular response. Assessment and Plan Plan: Assessment and plan #1 systolic congestive heart failure acute on chronic #2 chronic persistent atrial fibrillation status post prior cardioversion #3 prior CVA #4 nicotine dependence # 5 hypertension #6 hyperlipidemia #7 history of orthostatic hypotension, on midodrine Plan We will discontinue the by mouth Lasix and start the patient on IV diuretics. Continue amiodarone 200 twice a day, Eliquis 5 twice a day, aspirin 81 mg daily , Lipitor 40 mg daily, metoprolol 50 mg by mouth twice a day, if blood pressure tolerates, add a small dose of ELIZABET inhibitor, consider the addition of Aldactone as well. Replace potassium. Further recommendations to follow. DNP note has been reviewed, I agree with a documented findings and plan of care. Patient was seen and examined.
[2018-03-18] MEDS ORDERED: IPRATROPIUM-ALBUTEROL 3 ML NEB INHALATION PRN (12:02)
[2018-03-18] MEDS: FUROSEMIDE 10 MG/ML 4 ML VIAL IV SCH ×2 (12:59→21:17)
--- NOTE | 2018-03-18 13:12 | P.HPIM ---
History of Present Illness H&P Date: 03/18/18 Chief Complaint: Tachycardia This is a 73 year old male patient of Dr. Metz with past medical history of hypertension, stroke with multiple admissions over the past several months with recurrent atrial flutter with RVR status post cardioversion, chronic systolic heart failure with EF of 20-25% and mild to moderate mitral regurgitation, orthostatic hypotension with autonomic dysfunction, urinary retention, hypertension, chronic kidney disease stage II, hypothyroidism, COPD. Patient was just discharged on March 15 to his adult foster long term. Patient was brought in by EMS to [facility] emergency center for evaluation of shortness of breath. His heart rate was 98, blood pressure 112/56, pulse ox 99% on room air. EKG was atrial flatter at rate of 90. White count is normal, hemoglobin 11.5, potassium 3.4, creatinine 0.87, blood sugar 122, sodium 136 and chloride 95. AST is 113 and ALT 278. Troponin was 0.013. ProBNP 10,800. Chest x-ray shows congestive heart failure with pleural effusion. Pulmonary congestion is worse than last exam. Patient was started on Cardizem drip and then resumed on his home medications which include amiodarone and Lopressor midodrine and continues to have low blood pressure. There is a consult in place for cardiology regarding atrial fibrillation. Review of Systems All systems: negative Constitutional: Denies chills, Denies fever Eyes: denies blurred vision, denies pain Ears, nose, mouth and throat: Denies headache, Denies sore throat Cardiovascular: Reports shortness of breath, Denies chest pain Respiratory: Reports dyspnea, Denies cough Gastrointestinal: Denies abdominal pain, Denies diarrhea, Denies nausea, Denies vomiting Musculoskeletal: Denies myalgias Integumentary: Denies pruritus, Denies rash Neurological: Denies numbness, Denies weakness Psychiatric: Denies anxiety, Denies depression Endocrine: Denies fatigue, Denies weight change Past Medical History Past Medical History: Atrial Flutter, Heart Failure, COPD, CVA/TIA, Hearing Disorder / Deafness, Hypertension, Prostate Disorder History of Any Multi-Drug Resistant Organisms: None Reported Past Surgical History: Back Surgery Additional Past Surgical History / Comment(s): carotid endardectomy Past Anesthesia/Blood Transfusion Reactions: No Reported Reaction Past Psychological History: No Psychological Hx Reported Smoking Status: Former smoker Past Alcohol Use History: None Reported Past Drug Use History: None Reported - Past Family History Father Additional Family Medical History / Comment(s): father at the age of 70, sudden unclear etiology Mother Additional Family Medical History / Comment(s): mother of old age. Patient has no siblings patient has a power of trauma surgeon who does not live with him. Medications and Allergies Home Medications Medication Instructions Recorded Confirmed Type Aspirin 81 mg PO DAILY@0800 01/25/18 03/17/18 History ALPRAZolam [Xanax] 0.25 mg PO BID PRN #14 tab 02/24/18 03/17/18 Rx Acetaminophen Tab [Tylenol] 650 mg PO Q4H PRN 03/01/18 03/17/18 History Apixaban [Eliquis] 5 mg PO BID@0800,199903/01/18 03/17/18 History Atorvastatin Calcium [Lipitor] 40 mg PO HS@199903/01/18 03/17/18 History Montelukast Sodium [Singulair] 10 mg PO HS@199903/01/18 03/17/18 History Nitroglycerin Sl Tabs [Nitrostat] 0.4 mg SUBLINGUAL Q5M PRN 03/01/18 03/17/18 History Albuterol Nebulized (Conc) 2.5 mg INHALATION RT-QID PRN 03/07/18 03/17/18 History [Ventolin Nebulized (Conc)] Tamsulosin HCl [Flomax] 0.4 mg PO DAILY@0800 03/07/18 03/17/18 History Melatonin 6 mg PO HS #30 tablet 03/15/18 03/17/18 Rx Nicotine 14Mg/24Hr Patch [Habitrol] 1 patch TRANSDERM DAILY #30 patch 03/15/18 03/17/18 Rx Amiodarone [Cordarone] 200 mg PO BID 03/17/18 03/17/18 History Finasteride [Proscar] 5 mg PO DAILY@0800 03/17/18 03/17/18 History Furosemide [Lasix] 20 mg PO DAILY@0800 03/17/18 03/17/18 History Midodrine [ProAmatine] 10 mg PO QID@06,11,15,21 03/17/18 03/17/18 History Sennosides [Senokot] 8.6 mg PO BID@0800,199903/17/18 03/17/18 History buPROPion XL [Wellbutrin XL] 150 mg PO DAILY@0800 03/17/18 03/17/18 History predniSONE See Taper PO DIRECTED 03/17/18 03/17/18 History Levothyroxine Sodium [Synthroid] 50 mcg PO DAILY 03/18/18 03/18/18 History Metoprolol Tartrate [Lopressor] 50 mg PO BID 03/18/18 03/18/18 History Allergies Allergy/AdvReac Type Severity Reaction Status Date / Time venom-honey bee Allergy Anaphylaxis Verified 03/17/18 17:31 Physical Exam Vitals: Vital Signs Temp Pulse Pulse Resp BP BP BP 03/18/18 08:15 96.9 F L 63 20 75/61 78/54 03/18/18 06:30 118 H 106/85 03/18/18 03:22 119 H 20 03/18/18 03:21 96.9 F L 119 H 20 93/64 03/17/18 23:30 96.9 F L 97 20 107/69 03/17/18 20:24 120 H 20 135/60 03/17/18 20:15 120 H 20 03/17/18 19:10 111 H 22 110/79 03/17/18 18:18 98 18 03/17/18 18:01 96 18 03/17/18 17:50 95 20 109/58 03/17/18 16:56 97 16 109/60 03/17/18 16:51 98 20 112/56 Pulse Ox 03/18/18 08:15 93 L 03/18/18 06:30 03/18/18 03:22 03/18/18 03:21 97 03/17/18 23:30 95 03/17/18 20:24 98 03/17/18 20:15 03/17/18 19:10 100 03/17/18 18:18 03/17/18 18:01 03/17/18 17:50 100 03/17/18 16:56 92 L 03/17/18 16:51 99 Intake and Output 03/17/18 03/18/18 03/18/18 22:59 06:59 14:59 Intake Total 100 236 Output Total 1025 Balance -925 236 Intake: Oral 100 236 Output: Urine 1025 Other: Voiding Method Toilet Toilet Urinal Urinal # Voids 2 1 Weight 90.5 kg 90.5 kg - Constitutional General appearance: cooperative, no acute distress, obese - EENT Eyes: anicteric sclerae, PERRLA, normal appearance ENT: hearing grossly normal - Neck Neck: no lymphadenopathy, normal ROM, no other, no rigidity, no stridor, no thyromegaly - Respiratory Respiratory: bilateral: Scattered coarse wheezing with rhonchi and decreased air movement, negative: diminished, dullnes - Cardiovascular Rhythm: irregular Heart sounds: normal: S1, S2 Abnormal Heart Sounds: systolic murmur, no diastolic murmur, no rub, no S3 Gallop, no S4 Gallop, no click, no other - Gastrointestinal General gastrointestinal: normal bowel sounds, soft - Integumentary Integumentary: no rash - Neurologic Neurologic: CNII-XII intact - Musculoskeletal Musculoskeletal: strength equal bilaterally - Psychiatric Psychiatric: A&O x's 3, appropriate affect Results CBC & Chem 7: 03/18/18 05:36 03/18/18 05:36 Labs: Abnormal Lab Results - Last 24 Hours (Table) 03/17/18 03/17/18 03/17/18 Range/Units 17:21 17:21 17:21 Hgb 11.3 L (13.0-17.5) gm/dL Hct 36.1 L (39.0-53.0) % RDW 18.0 H (11.5-15.5) % Lymphocytes # 0.2 L (1.0-4.8) k/uL Lymphocytes # (Manual) (1.0-4.8) k/uL PT (9.0-12.0) sec INR (<1.2) Sodium 134 L (137-145) mmol/L Potassium (3.5-5.1) mmol/L Chloride 97 L (98-107) mmol/L BUN 26 H (9-20) mg/dL Glucose 109 H (74-99) mg/dL Calcium 7.8 L (8.4-10.2) mg/dL AST 113 H (17-59) U/L ALT 278 H (21-72) U/L CK-MB (CK-2) 3.1 H* (0.0-2.4) ng/mL Total Protein 5.1 L (6.3-8.2) g/dL Albumin 3.1 L (3.5-5.0) g/dL 03/17/18 03/18/18 03/18/18 Range/Units 17:21 05:36 05:36 Hgb 11.5 L (13.0-17.5) gm/dL Hct 37.0 L (39.0-53.0) % RDW 17.9 H (11.5-15.5) % Lymphocytes # (1.0-4.8) k/uL Lymphocytes # (Manual) 0.08 L (1.0-4.8) k/uL PT 12.7 H (9.0-12.0) sec INR 1.4 H (<1.2) Sodium 136 L (137-145) mmol/L Potassium 3.4 L (3.5-5.1) mmol/L Chloride 95 L (98-107) mmol/L BUN 22 H (9-20) mg/dL Glucose 122 H (74-99) mg/dL Calcium 7.9 L (8.4-10.2) mg/dL AST (17-59) U/L ALT (21-72) U/L CK-MB (CK-2) (0.0-2.4) ng/mL Total Protein (6.3-8.2) g/dL Albumin (3.5-5.0) g/dL Thrombosis Risk Factor Assmnt - DVT/VTE Prophylaxis DVT/VTE Prophylaxis: Pharmacologic Prophylaxis ordered - Choose All That Apply Any of the Below Risk Factors Present?: Yes Each Factor Represents 1 point: Abnormal pulmonary function (COPD), Obesity ( BMI >25) Other Risk Factors: Yes Each Risk Factor Represents 2 Points: Age 61-74 years Thrombosis Risk Factor Assessment Total Risk Factor Score: 4 Thrombosis Risk Factor Assessment Level: Moderate Risk Assessment and Plan Plan: 1. Acute respiratory distress secondary to a combination of acute on chronic systolic heart failure with known EF of 20-25% and acute exacerbation of COPD. Cardiology and pulmonary medicine consult in place. Patient started on DuoNeb treatments 4 times daily and as needed, Pulmicort 1 mg twice daily, Solu-Medrol 40 mg every 8 hours, Lasix 40 mg IV every 12 hours, I&O and daily weights 2. Chronic persistent atrial fibrillation with previous cardioversion on 01/[address] Sneed planned to repeat cardioversion but patient refused. Continue amiodarone 200 mg twice daily, eliquis 5 mg twice daily, Lopressor 50 mg twice daily. Cardiology consult requested. 3. Orthostatic hypotention with autonomic dysfunction, continue Midodrine 10mg increased to 4 times daily. 4. History of hypertension, currently with hypotension. 5. Recurrent depression continue Wellbutrin 150 mg and continue Xanax twice a day when necessary 6. Urinary retention with BPH. Continue Flomax and Proscar was discontinued during last admission. . 7. History of TIA/stroke- continue eliquis 8. 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 Follows with Dr. Kennedy. Patient also follow Dr. Jones who recommended conservative management 9. Mild protein calorie malnutrition, patient has diminished appetite, nutritional supplementation are requested 10. CKD stage II, stable 11. Transaminitis, currently asymptomatic ALT at 278, normal alkaline phosphatase 12. Hypothyroidism. Continue levothyroxine 50 g. 13. Coronary artery calcifications/CAD GI prophylaxis Pepcid 20 mg po twice a day DVT prophylaxis on eliquis Code status no code Discharge plan: Return to [facility] Impression and plan of care have been directed as dictated by the signing physician. Etelvina Gallegos nurse practitioner acting as scribe for signing physician.
--- NOTE | 2018-03-18 13:36 | P.PN ---
Progress Note - Text This is an addendum to the dictated cardiology consultation. The patient has a history of persistent atrial flutter/atrial fibrillation, severe cardiomyopathy who presents with weakness but no significant change in his breathing. He is not very active physically. He tells me that his breathing is not any different than when he left the hospital recently. He denies any dizziness or palpitations, he denies any symptoms of chest discomfort. His lung exam is clear, he is in atrial fibrillation and he has mild edema. The patient has severe cardiomyopathy and persistent atrial fibrillation, recurrent after ablation. His ventricular response at this time is controlled after adjustment of his medical regimen we will continue on the present therapy and he will be followed as an outpatient with Dr. Sneed for possible ablation. Thank you for this consult we will follow with you
[2018-03-18] MEDS ORDERED: Potassium Replacement Protocol 1 EACH MISC MISCELLANE PRN (14:30)
[2018-03-18] MEDS ORDERED: Magnesium Replacement Protocol 1 EACH MISC MISCELLANE PRN (14:30)
--- NOTE | 2018-03-18 14:34 | P.CNPUL ---
<Tata Kelly E - Last Filed: 03/18/18 14:22> History of Present Illness Consult date: 03/18/18 Requesting physician: Aki oMura Reason for consult: COPD Chief complaint: shortness of breath History of present illness: This is a 73-year-old male patient being seen examined and evaluated today for consultation. This patient is well known to our services. The patient was discharged March 15 2 adult foster longterm. The patient was brought in via EMS for progressive worsening shortness of breath. His EKG did show that the patient was in atrial flutter with a rate of 90. His proBNP was 10,800. His chest x-ray did show CHF with pleural effusion and pulmonary congestion that is worse from previous exam. The patient was initially started on a Cardizem drip and has since been discontinued per cardiology. Patient continues in atrial fibrillation. Upon examination the patient is resting up in bed on 3 L of supplemental oxygen via nasal cannula. He does have a congested cough and states he has had some problems with swallowing his pills lately. We will put in a speech evaluation. He is afebrile denies any further complaints. Review of Systems 14 point review of systems is completed and is negative unless noted above in the HPI. Past Medical History Past Medical History: Atrial Flutter, Heart Failure, COPD, CVA/TIA, Hearing Disorder / Deafness, Hypertension, Prostate Disorder History of Any Multi-Drug Resistant Organisms: None Reported Past Surgical History: Back Surgery Additional Past Surgical History / Comment(s): carotid endardectomy Past Anesthesia/Blood Transfusion Reactions: No Reported Reaction Past Psychological History: No Psychological Hx Reported Smoking Status: Former smoker Past Alcohol Use History: None Reported Past Drug Use History: None Reported - Past Family History Father Additional Family Medical History / Comment(s): father at the age of 70, sudden unclear etiology Mother Additional Family Medical History / Comment(s): mother of old age. Patient has no siblings patient has a power of tax associate attorney who does not live with him. Medications and Allergies Home Medications Medication Instructions Recorded Confirmed Type Aspirin 81 mg PO DAILY@0800 01/25/18 03/17/18 History ALPRAZolam [Xanax] 0.25 mg PO BID PRN #14 tab 02/24/18 03/17/18 Rx Acetaminophen Tab [Tylenol] 650 mg PO Q4H PRN 03/01/18 03/17/18 History Apixaban [Eliquis] 5 mg PO BID@08,199903/01/18 03/17/18 History Atorvastatin Calcium [Lipitor] 40 mg PO HS@199903/01/18 03/17/18 History Montelukast Sodium [Singulair] 10 mg PO HS@199903/01/18 03/17/18 History Nitroglycerin Sl Tabs [Nitrostat] 0.4 mg SUBLINGUAL Q5M PRN 03/01/18 03/17/18 History Albuterol Nebulized (Conc) 2.5 mg INHALATION RT-QID PRN 03/07/18 03/17/18 History [Ventolin Nebulized (Conc)] Tamsulosin HCl [Flomax] 0.4 mg PO DAILY@0800 03/07/18 03/17/18 History Melatonin 6 mg PO HS #30 tablet 03/15/18 03/17/18 Rx Nicotine 14Mg/24Hr Patch [Habitrol] 1 patch TRANSDERM DAILY #30 patch 03/15/18 03/17/18 Rx Amiodarone [Cordarone] 200 mg PO BID 03/17/18 03/17/18 History Finasteride [Proscar] 5 mg PO DAILY@0803/17/18 03/17/18 History Furosemide [Lasix] 20 mg PO DAILY@0800 03/17/18 03/17/18 History Midodrine [ProAmatine] 10 mg PO QID@06,11,15,21 03/17/18 03/17/18 History Sennosides [Senokot] 8.6 mg PO BID@08,199903/17/18 03/17/18 History buPROPion XL [Wellbutrin XL] 150 mg PO DAILY@0800 03/17/18 03/17/18 History predniSONE See Taper PO DIRECTED 03/17/18 03/17/18 History Levothyroxine Sodium [Synthroid] 50 mcg PO DAILY 03/18/18 03/18/18 History Metoprolol Tartrate [Lopressor] 50 mg PO BID 03/18/18 03/18/18 History Allergies Allergy/AdvReac Type Severity Reaction Status Date / Time venom-honey bee Allergy Anaphylaxis Verified 03/17/18 17:31 Physical Exam Vitals: Vital Signs Temp Pulse Pulse Resp BP BP BP 03/18/18 11:45 97.1 F L 92 20 78/42 03/18/18 11:22 88 03/18/18 11:12 88 03/18/18 08:15 96.9 F L 63 20 75/61 78/54 03/18/18 06:30 118 H 106/85 03/18/18 03:22 119 H 20 03/18/18 03:21 96.9 F L 119 H 20 93/64 03/17/18 23:30 96.9 F L 97 20 107/69 03/17/18 20:24 120 H 20 135/60 03/17/18 20:15 120 H 20 03/17/18 19:10 111 H 22 110/79 03/17/18 18:18 98 18 03/17/18 18:01 96 18 03/17/18 17:50 95 20 109/58 03/17/18 16:56 97 16 109/60 03/17/18 16:51 98 20 112/56 Pulse Ox 03/18/18 11:45 95 03/18/18 11:22 03/18/18 11:12 03/18/18 08:15 93 L 03/18/18 06:30 03/18/18 03:22 03/18/18 03:21 97 03/17/18 23:30 95 03/17/18 20:24 98 03/17/18 20:15 03/17/18 19:10 100 03/17/18 18:18 03/17/18 18:01 03/17/18 17:50 100 03/17/18 16:56 92 L 03/17/18 16:51 99 Intake and Output 03/17/18 03/18/18 03/18/18 22:59 06:59 14:59 Intake Total 100 836 Output Total 1025 Balance -925 836 Intake: Oral 100 836 Output: Urine 1025 Other: Voiding Method Toilet Toilet Urinal Urinal # Voids 2 1 Weight 90.5 kg 90.5 kg 90.5 kg GENERAL EXAM: Alert, hard of hearing, comfortable in no apparent distress. HEAD: Normocephalic. EYES: Normal reaction of pupils, equal size. NOSE: Clear with pink turbinates. THROAT: No erythema or exudates. NECK: No masses, no JVD. CHEST: No chest wall deformity. LUNGS: Lungs noted to be coarse throughout with scattered rhonchi and wheezing. Bases diminished CVS: S1 and S2 normal with no audible mumurs, irregular rhythm. ABDOMEN: No hepatosplenomegaly, normal bowel sounds, no guarding or rigidity. EXTREMITIES: +2 edema noted, pedal pulses palpable. CENTRAL NERVOUS SYSTEM: No focal deficits, tone is normal in all 4 extremities. Results - Laboratory Findings CBC and BMP: 03/18/18 05:36 03/18/18 05:36 PT/INR, D-dimer PT 12.7 sec (9.0-12.0) H 03/17/18 17:21 INR 1.4 (<1.2) H 03/17/18 17:21 Abnormal lab findings: Abnormal Labs 03/17/18 03/17/18 03/17/18 17:21 17:21 17:21 Hgb 11.3 L Hct 36.1 L RDW 18.0 H Lymphocytes # 0.2 L Lymphocytes # (Manual) PT INR Sodium 134 L Potassium Chloride 97 L BUN 26 H Glucose 109 H Calcium 7.8 L AST 113 H ALT 278 H CK-MB (CK-2) 3.1 H* Total Protein 5.1 L Albumin 3.1 L 03/17/18 03/18/18 03/18/18 17:21 05:36 05:36 Hgb 11.5 L Hct 37.0 L RDW 17.9 H Lymphocytes # Lymphocytes # (Manual) 0.08 L PT 12.7 H INR 1.4 H Sodium 136 L Potassium 3.4 L Chloride 95 L BUN 22 H Glucose 122 H Calcium 7.9 L AST ALT CK-MB (CK-2) Total Protein Albumin - Diagnostic Findings Chest x-ray: report reviewed, image reviewed Assessment and Plan Assessment: Assessment Acute hypoxic respiratory failure requiring supplemental oxygen Bilateral pleural effusions Acute exacerbation of chronic systolic heart failure Acute exacerbation of COPD Chronic persistent atrial fibrillation Orthostatic hypotension History of CAD History of TIA/stroke History of hypertension Plan Medications have been reviewed and will be continued as ordered. IV steroids. Continue gentle diuresis. Patient would benefit from an outpatient sleep study. Monitor and replace electrolytes per protocol. Continue with pulmonary hygiene, coughing and deep breathing exercises, and supportive care. Supplemental oxygen to maintain oxygen saturations of 92% or better. Continue nebulizer treatments. GI and DVT prophylaxis. Initiate and encourage incentive spirometer. Cardiology on consult and appreciate recommendations. Consult speech for swallow evaluation. We will continue to monitor labs/results and adjust treatment as necessary. Further recommendations pending. I performed an examination of the patient and discussed their management with the nurse practitioner. I have reviewed the nurse practitioner's note and agree with the documented findings and plan of care. <Olimpia Parsons - Last Filed: 03/18/18 14:39> Physical Exam Osteopathic Statement: *. No significant issues noted on an osteopathic structural exam other than those noted in the History and Physical/Consult. Vitals: Vital Signs Temp Pulse Pulse Resp BP BP BP 03/18/18 11:45 97.1 F L 92 20 78/42 03/18/18 11:22 88 03/18/18 11:12 88 03/18/18 08:15 96.9 F L 63 20 75/61 78/54 03/18/18 06:30 118 H 106/85 03/18/18 03:22 119 H 20 03/18/18 03:21 96.9 F L 119 H 20 93/64 03/17/18 23:30 96.9 F L 97 20 107/69 03/17/18 20:24 120 H 20 135/60 03/17/18 20:15 120 H 20 03/17/18 19:10 111 H 22 110/79 03/17/18 18:18 98 18 03/17/18 18:01 96 18 03/17/18 17:50 95 20 109/58 03/17/18 16:56 97 16 109/60 03/17/18 16:51 98 20 112/56 Pulse Ox 03/18/18 11:45 95 03/18/18 11:22 03/18/18 11:12 03/18/18 08:15 93 L 03/18/18 06:30 03/18/18 03:22 03/18/18 03:21 97 03/17/18 23:30 95 03/17/18 20:24 98 03/17/18 20:15 03/17/18 19:10 100 03/17/18 18:18 03/17/18 18:01 03/17/18 17:50 100 03/17/18 16:56 92 L 03/17/18 16:51 99 Intake and Output 03/17/18 03/18/18 03/18/18 22:59 06:59 14:59 Intake Total 100 836 Output Total 1025 Balance -925 836 Intake: Oral 100 836 Output: Urine 1025 Other: Voiding Method Toilet Toilet Urinal Urinal # Voids 2 1 Weight 90.5 kg 90.5 kg 90.5 kg Results - Laboratory Findings CBC and BMP: 03/18/18 05:36 03/18/18 05:36 PT/INR, D-dimer PT 12.7 sec (9.0-12.0) H 03/17/18 17:21 INR 1.4 (<1.2) H 03/17/18 17:21 Abnormal lab findings: Abnormal Labs 03/17/18 03/17/18 03/17/18 17:21 17:21 17:21 Hgb 11.3 L Hct 36.1 L RDW 18.0 H Lymphocytes # 0.2 L Lymphocytes # (Manual) PT INR Sodium 134 L Potassium Chloride 97 L BUN 26 H Glucose 109 H Calcium 7.8 L AST 113 H ALT 278 H CK-MB (CK-2) 3.1 H* Total Protein 5.1 L Albumin 3.1 L 03/17/18 03/18/18 03/18/18 17:21 05:36 05:36 Hgb 11.5 L Hct 37.0 L RDW 17.9 H Lymphocytes # Lymphocytes # (Manual) 0.08 L PT 12.7 H INR 1.4 H Sodium 136 L Potassium 3.4 L Chloride 95 L BUN 22 H Glucose 122 H Calcium 7.9 L AST ALT CK-MB (CK-2) Total Protein Albumin Assessment and Plan Assessment: Patient seen and examined. Patient is asking for Lifesaver mints. He states his breathing is improving. He would benefit from PSG due to recurrent Afib. Diuresis. IS and pulmonary hygiene. GI and DVT prophylaxis. CLAIM PROCESSOR for swallow evaluation, the patient states he sometimes has trouble swallowing. Thank you for this consultation. ~Olimpia Parsons DO
[2018-03-18] MEDS: IPRATROPIUM-ALBUTEROL 3 ML NEB INHALATION SCH ×2 (16:09→20:27)
[2018-03-18] MEDS: methylPREDNISolone SOD SUCCI 40 MG/ML 1 ML VIAL IV SCH ×2 (17:00→23:07)
[2018-03-18 17:14] LABS: Glucose,Whole Blood 138 mg/dL (75-99)
[2018-03-18] MEDS: INSULIN ASPART 100 UNIT/ML 1 ML 10 ML VIAL SQ SCH ×2 (17:21→20:51)
[2018-03-18] MEDS: MONTELUKAST 10 MG TAB PO SCH (19:59)
[2018-03-18] MEDS: ATORVASTATIN 40 MG TAB PO SCH (19:59)
[2018-03-18 20:01] LABS: Hemoglobin A1C 6.5 % (4.0-6.0)
[2018-03-18 20:27] LABS: Glucose,Whole Blood 158 mg/dL (75-99)
[2018-03-18] MEDS: BUDESONIDE 1 MG/2 ML NEBU INHALATION SCH (20:27)
[2018-03-18] MEDS: MELATONIN 3 MG TABLET PO SCH (21:17)
[2018-03-19] MEDS: ACETAMINOPHEN TAB 325 MG TAB PO PRN (05:40)
[2018-03-19] MEDS: MIDODRINE 5 MG TAB PO SCH ×4 (05:40→19:46)
[2018-03-19 06:09] LABS: Glucose,Whole Blood 157 mg/dL (75-99)
[2018-03-19] MEDS: INSULIN ASPART 100 UNIT/ML 1 ML 10 ML VIAL SQ SCH ×4 (06:18→22:07)
[2018-03-19 06:54] LABS: Anisocytosis Slight; Basophils % (A) 0 %; Eosinophils % (A) 0 %; HCT 36.8 % (39.0-53.0); HGB 11.5 gm/dL (13.0-17.5); Hypochromasia Marked; Lymphocytes # (A) 0.3 k/uL (1.0-4.8); Lymphocytes % (A) 2 %; MCH 25.9 pg (25.0-35.0); MCHC 31.1 g/dL (31.0-37.0); MCV 83.3 fL (80.0-100.0); Monocytes # (A) 0.4 k/uL (0-1.0); Monocytes % (A) 3 %; Neutrophils # (A) 10.9 k/uL (1.3-7.7); Neutrophils % (A) 94 %; Platelet Count 213 k/uL (150-450); Poikilocytosis Slight; RBC 4.42 m/uL (4.30-5.90); RDW 17.8 % (11.5-15.5); WBC 11.6 k/uL (3.8-10.6)
[2018-03-19 07:08] LABS: Albumin 3.3 g/dL (3.5-5.0); Calcium 8.2 mg/dL (8.4-10.2); Magnesium 1.9 mg/dL (1.6-2.3); Potassium 3.7 mmol/L (3.5-5.1); Total Bilirubin 0.6 mg/dL (0.2-1.3); Total Protein 5.4 g/dL (6.3-8.2)
--- NOTE | 2018-03-19 07:12 | XR ---
EXAMINATION TYPE: XR chest 2V DATE OF EXAM: 03/19/2018 HISTORY: sob. REFERENCE: Previous study dated 03/17/2018. FINDINGS: The heart is mildly enlarged. There is left basilar airspace disease. There is a small left effusion. There is vascular congestion and mild interstitial change. There is underlying COPD. IMPRESSION: 1. COPD. 2. CARDIOMEGALY. 3. IMPROVING CHANGES OF CONGESTIVE HEART FAILURE.
[2018-03-19] MEDS: buPROPion XL 150 MG TAB.ER.24H PO SCH (08:06)
[2018-03-19] MEDS: APIXABAN 5 MG TAB PO SCH ×2 (08:06→19:45)
[2018-03-19] MEDS: FAMOTIDINE 20 MG TAB PO SCH (08:07)
[2018-03-19] MEDS: TAMSULOSIN 0.4 MG CAP.ER.24H PO SCH (08:07)
[2018-03-19] MEDS: FUROSEMIDE 10 MG/ML 4 ML VIAL IV SCH ×2 (08:07→19:46)
[2018-03-19] MEDS: FINASTERIDE 5 MG TAB PO SCH (08:07)
[2018-03-19] MEDS: methylPREDNISolone SOD SUCCI 40 MG/ML 1 ML VIAL IV SCH ×3 (08:07→23:36)
[2018-03-19] MEDS: SENNOSIDES 8.6 MG TAB PO SCH ×2 (08:07→19:45)
[2018-03-19] MEDS: AMIODARONE 200 MG TAB PO SCH ×2 (08:07→19:45)
[2018-03-19] MEDS: LEVOTHYROXINE 50 MCG TAB PO SCH (08:08)
[2018-03-19] MEDS: NICOTINE 14MG/24HR PATCH TRANSDERM SCH (08:08)
[2018-03-19] MEDS: METOPROLOL TARTRATE 50 MG TAB PO SCH ×2 (08:08→22:06)
[2018-03-19] MEDS: BUDESONIDE 1 MG/2 ML NEBU INHALATION SCH ×2 (08:29→19:47)
[2018-03-19] MEDS: IPRATROPIUM-ALBUTEROL 3 ML NEB INHALATION SCH ×4 (08:29→19:47)
[2018-03-19 11:18] LABS: Glucose,Whole Blood 120 mg/dL (75-99)
--- NOTE | 2018-03-19 11:28 | P.PN ---
Subjective Progress Note Date: 03/19/18 This is a 73 year old male patient of Dr. Metz with past medical history of hypertension, stroke with multiple admissions over the past several months with recurrent atrial flutter with RVR status post cardioversion, chronic systolic heart failure with EF of 20-25% and mild to moderate mitral regurgitation, orthostatic hypotension with autonomic dysfunction, urinary retention, hypertension, chronic kidney disease stage II, hypothyroidism, COPD. Patient was just discharged on March 15 to his adult foster residential. Patient was brought in by EMS to [facility] for evaluation of shortness of breath. His heart rate was 98, blood pressure 112/56, pulse ox 99% on room air. EKG was atrial flatter at rate of 90. White count is normal, hemoglobin 11.5, potassium 3.4, creatinine 0.87, blood sugar 122, sodium 136 and chloride 95. AST is 113 and ALT 278. Troponin was 0.013. ProBNP 10,800. Chest x-ray shows congestive heart failure with pleural effusion. Pulmonary congestion is worse than last exam. Patient was started on Cardizem drip and then resumed on his home medications which include amiodarone and Lopressor midodrine and continues to have low blood pressure. There is a consult in place for cardiology regarding atrial fibrillation. 03/19: Patient is sitting up in bed he continues to have some congested cough, he denies any chest pain, he does not appear to be in acute shortness of breath , he has oxygen at 3 L nasal cannula, he continues to have some swelling in both lower extremities, and he has no abdominal pain, nausea, his hepatitis. He 100% of his meal. Objective - Vital Signs Vital signs: Vital Signs Temp 96.8 F L 03/19/18 04:00 Pulse 108 H 03/19/18 04:00 Resp 18 03/19/18 04:00 BP 109/82 03/19/18 04:00 Pulse Ox 97 03/19/18 04:00 Intake & Output 03/18/18 03/19/18 03/19/18 18:59 06:59 18:59 Intake Total 1308 840 Output Total 1375 Balance 1308 -535 Weight 90.5 kg 84.3 kg Intake: Oral 1308 840 Output: Urine 1375 Other: Voiding Method Urinal # Voids 300 - Exam - Constitutional General appearance: cooperative, no acute distress, obese - EENT Eyes: anicteric sclerae, PERRLA, normal appearance ENT: hearing grossly normal - Neck Neck: no lymphadenopathy, normal ROM, no other, no rigidity, no stridor, no thyromegaly - Respiratory Respiratory: bilateral: Scattered coarse wheezing with rhonchi and decreased air movement, negative: diminished, dullnes - Cardiovascular Rhythm: irregular Heart sounds: normal: S1, S2 Abnormal Heart Sounds: systolic murmur, no diastolic murmur, no rub, no S3 Gallop, no S4 Gallop, no click, no other - Gastrointestinal General gastrointestinal: normal bowel sounds, soft - Integumentary Integumentary: no rash - Neurologic Neurologic: CNII-XII intact - Musculoskeletal Musculoskeletal: strength equal bilaterally - Psychiatric Psychiatric: A&O x's 3, appropriate affect - Labs CBC & Chem 7: 03/19/18 06:06 03/19/18 06:06 Labs: Abnormal Lab Results - Last 24 Hours (Table) 03/18/18 03/18/18 03/18/18 Range/Units 05:36 17:12 20:25 WBC (3.8-10.6) k/uL Hgb (13.0-17.5) gm/dL Hct (39.0-53.0) % RDW (11.5-15.5) % Neutrophils # (1.3-7.7) k/uL Lymphocytes # (1.0-4.8) k/uL Sodium (137-145) mmol/L Chloride (98-107) mmol/L Carbon Dioxide (22-30) mmol/L BUN (9-20) mg/dL Glucose (74-99) mg/dL POC Glucose (mg/dL) 138 H 158 H (75-99) mg/dL Hemoglobin A1c 6.5 H (4.0-6.0) % Calcium (8.4-10.2) mg/dL AST (17-59) U/L ALT (21-72) U/L Total Protein (6.3-8.2) g/dL Albumin (3.5-5.0) g/dL 03/19/18 03/19/18 03/19/18 Range/Units 06:06 06:06 06:07 WBC 11.6 H (3.8-10.6) k/uL Hgb 11.5 L (13.0-17.5) gm/dL Hct 36.8 L (39.0-53.0) % RDW 17.8 H (11.5-15.5) % Neutrophils # 10.9 H (1.3-7.7) k/uL Lymphocytes # 0.3 L (1.0-4.8) k/uL Sodium 135 L (137-145) mmol/L Chloride 90 L (98-107) mmol/L Carbon Dioxide 34 H (22-30) mmol/L BUN 30 H (9-20) mg/dL Glucose 130 H (74-99) mg/dL POC Glucose (mg/dL) 157 H (75-99) mg/dL Hemoglobin A1c (4.0-6.0) % Calcium 8.2 L (8.4-10.2) mg/dL AST 64 H (17-59) U/L ALT 214 H (21-72) U/L Total Protein 5.4 L (6.3-8.2) g/dL Albumin 3.3 L (3.5-5.0) g/dL Assessment and Plan Assessment: Assessment and Plan Plan: 1. Acute respiratory distress secondary to a combination of acute on chronic systolic heart failure with known EF of 20-25% and acute exacerbation of COPD. Cardiology and pulmonary medicine consult in place. Patient started on DuoNeb treatments 4 times daily and as needed, Pulmicort 1 mg twice daily, Solu-Medrol 40 mg every 8 hours, Lasix 40 mg IV every 12 hours, I&O and daily weights 2. Chronic persistent atrial fibrillation with previous cardioversion on 01/[address] Sneed planned to repeat cardioversion but patient refused. Continue amiodarone 200 mg twice daily, eliquis 5 mg twice daily, Lopressor 50 mg twice daily. Cardiology consult requested. 3. Orthostatic hypotention with autonomic dysfunction, continue Midodrine 10mg increased to 4 times daily. 4. History of hypertension, currently with hypotension. 5. Recurrent depression continue Wellbutrin 150 mg and continue Xanax twice a day when necessary 6. Urinary retention with BPH. Continue Flomax and Proscar was discontinued during last admission. . 7. History of TIA/stroke- continue eliquis 8. 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 Follows with Dr. Kennedy. Patient also follow Dr. Jones who recommended conservative management 9. Mild protein calorie malnutrition, patient has diminished appetite, nutritional supplementation are requested 10. CKD stage II, stable 11. Transaminitis, currently asymptomatic ALT at 278, normal alkaline phosphatase 12. Hypothyroidism. Continue levothyroxine 50 g. 13. Coronary artery calcifications/CAD GI prophylaxis Pepcid 20 mg po twice a day DVT prophylaxis on eliquis Code status no code Discharge plan: Return to [facility]
--- NOTE | 2018-03-19 12:24 | PN ---
PROGRESS NOTE DATE OF SERVICE: 03/19/2018. He has been hemodynamically stable, less short of breath. On physical examination: Blood pressure is 104/57, respiratory rate of 18, pulse rate 81, temperature 96.7, O2 saturation on nasal cannula is 98%. HEENT is unremarkable. Chest reveals occasional crackles. Cardiovascular system reveals an S1, S2. Abdomen is soft. There is trace to 1+ pedal edema. White count is 11.6, hemoglobin of 11.5, sodium 135, potassium 3.7, chloride 90, bicarb 34, BUN 30, creatinine 1.01, albumin of 3.3. IMPRESSION: At this time: 1. Atrial fibrillation with rapid ventricular rate. 2. Acute hypoxic respiratory failure. 3. Previous transient ischemic attack and stroke. 4. Congestive heart failure with effusions. Optimize fluid status. Continue IV steroids. Increase his activity level. PT and OT to evaluate patient. His prognosis at this time is fair. MMODL / IJN: [id number] /
[2018-03-19] MEDS: ALPRAZolam 0.25 MG TAB PO PRN (15:24)
[2018-03-19 16:13] LABS: Glucose,Whole Blood 180 mg/dL (75-99)
[2018-03-19] MEDS: ATORVASTATIN 40 MG TAB PO SCH (19:45)
[2018-03-19] MEDS: MONTELUKAST 10 MG TAB PO SCH (19:45)
[2018-03-19 20:41] LABS: Glucose,Whole Blood 155 mg/dL (75-99)
--- NOTE | 2018-03-19 20:42 | PN ---
PROGRESS NOTE This patient is admitted with the patient remains comfortable, he is not in any acute distress. The patient's heart rate remains controlled in the range of 90 to 100. Blood pressure is 87/65 mmHg. First and second heart sounds are normal. Lungs examination reveals bilateral scattered rhonchi. The patient hemoglobin is 11.5, and electrolytes are normal. We will continue the current medications. MMODL / IJN: [id number] /
[2018-03-19] MEDS: MELATONIN 3 MG TABLET PO SCH (22:06)
[2018-03-20 05:54] LABS: Glucose,Whole Blood 126 mg/dL (75-99)
[2018-03-20] MEDS: INSULIN ASPART 100 UNIT/ML 1 ML 10 ML VIAL SQ SCH ×4 (05:57→22:04)
[2018-03-20] MEDS: MIDODRINE 5 MG TAB PO SCH ×4 (06:04→21:44)
[2018-03-20] MEDS: ACETAMINOPHEN TAB 325 MG TAB PO PRN (06:28)
[2018-03-20 07:03] LABS: ALT 186 U/L (21-72); AST 57 U/L (17-59); Albumin 3.2 g/dL (3.5-5.0); Alkaline Phosphatase 86 U/L (38-126); Anion Gap 11 mmol/L; Blood Urea Nitrogen 32 mg/dL (9-20); Calcium 8.2 mg/dL (8.4-10.2); Carbon Dioxide 34 mmol/L (22-30); Chloride 89 mmol/L (98-107); Glucose 100 mg/dL (74-99); Magnesium 1.9 mg/dL (1.6-2.3); Potassium 3.6 mmol/L (3.5-5.1); Sodium 134 mmol/L (137-145); Total Bilirubin 0.6 mg/dL (0.2-1.3); Total Protein 5.2 g/dL (6.3-8.2)
[2018-03-20 07:07] LABS: Anisocytosis Slight; Basophils % (A) 0 %; Eosinophils % (A) 0 %; HCT 37.5 % (39.0-53.0); HGB 11.6 gm/dL (13.0-17.5); Hypochromasia Marked; Lymphocytes # (A) 0.5 k/uL (1.0-4.8); Lymphocytes % (A) 3 %; MCH 25.5 pg (25.0-35.0); MCHC 30.8 g/dL (31.0-37.0); Mean Platelet Volume 9.8; Monocytes # (A) 0.8 k/uL (0-1.0); Monocytes % (A) 5 %; Neutrophils # (A) 15.1 k/uL (1.3-7.7); Neutrophils % (A) 91 %; Poikilocytosis Slight; RBC 4.53 m/uL (4.30-5.90); RDW 17.8 % (11.5-15.5); WBC 16.5 k/uL (3.8-10.6)
[2018-03-20] MEDS: NICOTINE 14MG/24HR PATCH TRANSDERM SCH (07:46)
[2018-03-20] MEDS: APIXABAN 5 MG TAB PO SCH ×2 (07:46→21:48)
[2018-03-20] MEDS: FINASTERIDE 5 MG TAB PO SCH (07:47)
[2018-03-20] MEDS: TAMSULOSIN 0.4 MG CAP.ER.24H PO SCH (07:47)
[2018-03-20] MEDS: buPROPion XL 150 MG TAB.ER.24H PO SCH (07:47)
[2018-03-20] MEDS: SENNOSIDES 8.6 MG TAB PO SCH ×2 (07:47→21:48)
[2018-03-20] MEDS: methylPREDNISolone SOD SUCCI 40 MG/ML 1 ML VIAL IV SCH ×3 (07:47→23:30)
[2018-03-20] MEDS: METOPROLOL TARTRATE 50 MG TAB PO SCH ×2 (07:48→21:48)
[2018-03-20] MEDS: AMIODARONE 200 MG TAB PO SCH ×2 (07:48→21:48)
[2018-03-20] MEDS: LEVOTHYROXINE 50 MCG TAB PO SCH (07:48)
[2018-03-20] MEDS: SPIRONOLACTONE 25 MG TAB PO SCH (07:48)
[2018-03-20] MEDS: FAMOTIDINE 20 MG TAB PO SCH (07:48)
[2018-03-20] MEDS: FUROSEMIDE 40 MG TAB PO SCH ×2 (07:51→15:24)
[2018-03-20] MEDS: BUDESONIDE 1 MG/2 ML NEBU INHALATION SCH ×2 (08:13→20:40)
[2018-03-20] MEDS: IPRATROPIUM-ALBUTEROL 3 ML NEB INHALATION SCH ×4 (08:13→20:40)
--- NOTE | 2018-03-20 09:38 | P.PN ---
Subjective Progress Note Date: 03/20/18 This is a 73 year old male patient of Dr. Metz with past medical history of hypertension, stroke with multiple admissions over the past several months with recurrent atrial flutter with RVR status post cardioversion, chronic systolic heart failure with EF of 20-25% and mild to moderate mitral regurgitation, orthostatic hypotension with autonomic dysfunction, urinary retention, hypertension, chronic kidney disease stage II, hypothyroidism, COPD. Patient was just discharged on March 15 to his adult foster long term. Patient was brought in by EMS to [facility] emergency center for evaluation of shortness of breath. His heart rate was 98, blood pressure 112/56, pulse ox 99% on room air. EKG was atrial flatter at rate of 90. White count is normal, hemoglobin 11.5, potassium 3.4, creatinine 0.87, blood sugar 122, sodium 136 and chloride 95. AST is 113 and ALT 278. Troponin was 0.013. ProBNP 10,800. Chest x-ray shows congestive heart failure with pleural effusion. Pulmonary congestion is worse than last exam. Patient was started on Cardizem drip and then resumed on his home medications which include amiodarone and Lopressor midodrine and continues to have low blood pressure. There is a consult in place for cardiology regarding atrial fibrillation. 03/19: Patient is sitting up in bed he continues to have some congested cough, he denies any chest pain, he does not appear to be in acute shortness of breath , he has oxygen at 3 L nasal cannula, he continues to have some swelling in both lower extremities, and he has no abdominal pain, nausea, his hepatitis. He 100% of his meal. 03/20: Patient is feeling more wheezy today he continues to have a bit of hypotension, we will discontinue IV Lasix, we will continue the patient on Pulmicort 1 mg nebulization twice every day, monitor the patient very closely. Objective - Vital Signs Vital signs: Vital Signs Temp 96.8 F L 03/20/18 04:00 Pulse 97 03/20/18 04:00 Resp 18 03/20/18 04:00 BP 97/69 03/20/18 04:00 Pulse Ox 99 03/20/18 04:00 Intake & Output 03/19/18 03/20/18 03/20/18 18:59 06:59 18:59 Intake Total 702 480 Output Total 1600 1250 Balance -898 -770 Weight 84.2 kg Intake: Oral 702 480 Output: Urine 1600 1250 Other: Voiding Method Urinal - Exam - Exam - Constitutional General appearance: cooperative, no acute distress, obese - EENT Eyes: anicteric sclerae, PERRLA, normal appearance ENT: hearing grossly normal - Neck Neck: no lymphadenopathy, normal ROM, no other, no rigidity, no stridor, no thyromegaly - Respiratory Respiratory: bilateral: Scattered coarse wheezing with rhonchi and decreased air movement, negative: diminished, dullnes - Cardiovascular Rhythm: irregular Heart sounds: normal: S1, S2 Abnormal Heart Sounds: systolic murmur, no diastolic murmur, no rub, no S3 Gallop, no S4 Gallop, no click, no other - Gastrointestinal General gastrointestinal: normal bowel sounds, soft - Integumentary Integumentary: no rash - Neurologic Neurologic: CNII-XII intact - Musculoskeletal Musculoskeletal: strength equal bilaterally - Psychiatric Psychiatric: A&O x's 3, appropriate affect - Labs CBC & Chem 7: 03/20/18 05:36 03/20/18 05:36 Labs: Abnormal Lab Results - Last 24 Hours (Table) 03/19/18 03/19/18 03/19/18 Range/Units 06:06 11:14 16:12 WBC (3.8-10.6) k/uL Hgb (13.0-17.5) gm/dL Hct (39.0-53.0) % MCHC (31.0-37.0) g/dL RDW (11.5-15.5) % Plt Count (150-450) k/uL Sodium 135 L (137-145) mmol/L Chloride 90 L (98-107) mmol/L Carbon Dioxide 34 H (22-30) mmol/L BUN 30 H (9-20) mg/dL Glucose 130 H (74-99) mg/dL POC Glucose (mg/dL) 120 H 180 H (75-99) mg/dL Calcium 8.2 L (8.4-10.2) mg/dL AST 64 H (17-59) U/L ALT 214 H (21-72) U/L Total Protein 5.4 L (6.3-8.2) g/dL Albumin 3.3 L (3.5-5.0) g/dL 03/19/18 03/20/18 03/20/18 Range/Units 20:41 05:36 05:36 WBC 16.5 H (3.8-10.6) k/uL Hgb 11.6 L (13.0-17.5) gm/dL Hct 37.5 L (39.0-53.0) % MCHC 30.8 L (31.0-37.0) g/dL RDW 17.8 H (11.5-15.5) % Plt Count 132 L (150-450) k/uL Sodium 134 L (137-145) mmol/L Chloride 89 L (98-107) mmol/L Carbon Dioxide 34 H (22-30) mmol/L BUN 32 H (9-20) mg/dL Glucose 100 H (74-99) mg/dL POC Glucose (mg/dL) 155 H (75-99) mg/dL Calcium 8.2 L (8.4-10.2) mg/dL AST (17-59) U/L ALT 186 H (21-72) U/L Total Protein 5.2 L (6.3-8.2) g/dL Albumin 3.2 L (3.5-5.0) g/dL 03/20/18 Range/Units 05:52 WBC (3.8-10.6) k/uL Hgb (13.0-17.5) gm/dL Hct (39.0-53.0) % MCHC (31.0-37.0) g/dL RDW (11.5-15.5) % Plt Count (150-450) k/uL Sodium (137-145) mmol/L Chloride (98-107) mmol/L Carbon Dioxide (22-30) mmol/L BUN (9-20) mg/dL Glucose (74-99) mg/dL POC Glucose (mg/dL) 126 H (75-99) mg/dL Calcium (8.4-10.2) mg/dL AST (17-59) U/L ALT (21-72) U/L Total Protein (6.3-8.2) g/dL Albumin (3.5-5.0) g/dL Assessment and Plan Assessment: Assessment and Plan Plan: 1. Acute respiratory distress secondary to a combination of acute on chronic systolic heart failure with known EF of 20-25% and acute exacerbation of COPD. Cardiology and pulmonary medicine consult in place. Patient started on DuoNeb treatments 4 times daily and as needed, Pulmicort 1 mg twice daily, Solu-Medrol 40 mg every 8 hours, Lasix 40 mg IV every 12 hours, I&O and daily weights 2. Chronic persistent atrial fibrillation with previous cardioversion on 01/[address] Sneed planned to repeat cardioversion but patient refused. Continue amiodarone 200 mg twice daily, eliquis 5 mg twice daily, Lopressor 50 mg twice daily. Cardiology consult requested. 3. Orthostatic hypotention with autonomic dysfunction, continue Midodrine 10mg increased to 4 times daily. 4. History of hypertension, currently with hypotension. 5. Recurrent depression continue Wellbutrin 150 mg and continue Xanax twice a day when necessary 6. Urinary retention with BPH. Continue Flomax and Proscar was discontinued during last admission. . 7. History of TIA/stroke- continue eliquis 8. 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 Follows with Dr. Kennedy. Patient also follow Dr. Jones who recommended conservative management 9. Mild protein calorie malnutrition, patient has diminished appetite, nutritional supplementation are requested 10. CKD stage II, stable 11. Transaminitis, currently asymptomatic ALT at 278, normal alkaline phosphatase 12. Hypothyroidism. Continue levothyroxine 50 g. 13. Coronary artery calcifications/CAD GI prophylaxis Pepcid 20 mg po twice a day DVT prophylaxis on eliquis Code status no code Discharge plan: Return to [facility]
[2018-03-20] MEDS: ALPRAZolam 0.25 MG TAB PO PRN (09:58)
[2018-03-20 11:31] LABS: Glucose,Whole Blood 131 mg/dL (75-99)
[2018-03-20] MEDS ORDERED: FUROSEMIDE 10 MG/ML 10 ML VIAL IV STA (12:49)
--- NOTE | 2018-03-20 13:55 | PN ---
PROGRESS NOTE DATE OF SERVICE: 03/20/18 He was seen again on March 20, 2018. He is hemodynamically more stable. He is sleepy but arousable. On physical examination, his blood pressure is 104/75, respiratory rate of 18, pulse rate 96, temperature 97.3, O2 saturation on 3 L by nasal cannula is 100%. HEENT is unremarkable. Chest reveals decreased breath sounds on the bases. No wheeze. Cardiovascular system is S1, S2. Abdomen is soft. There is 2+ pedal edema. Labs were reviewed. IMPRESSION: At this time. 1. Atrial fibrillation with RVR. 2. Acute hypoxic respiratory failure. 3. Transient ischemic attack. 4. Congestive heart failure with effusion. Continue his current medications, but add an extra dose of IV Lasix 80 mg a day. Optimize his fluid status. Increase his activity level. His prognosis at this time is fair. KOKIL / LUZMAN: [id number] /
[2018-03-20 16:20] LABS: Glucose,Whole Blood 128 mg/dL (75-99)
[2018-03-20 21:09] LABS: Glucose,Whole Blood 161 mg/dL (75-99)
[2018-03-20] MEDS: MONTELUKAST 10 MG TAB PO SCH (21:48)
[2018-03-20] MEDS: MELATONIN 3 MG TABLET PO SCH (21:48)
[2018-03-20] MEDS: ATORVASTATIN 40 MG TAB PO SCH (21:48)
--- NOTE | 2018-03-21 00:04 | PN ---
PROGRESS NOTE This patient is admitted with congestive cardiac failure and atrial fibrillation. The patient remains fairly well. Denies any significant shortness of breath. Blood pressure is 92/61 mmHg. Patient's heart rate is 80 to 90 per minute, first and second heart sounds are normal. Respirations are not labored. Lungs are fairly clear to auscultation and percussion. Patient's hemoglobin is 11.6. We will discuss further with Dr. Sneed whether the patient is a a candidate to treat with Tikosyn to maintain converted to normal sinus rhythm or patient will be considered for possible ablation. MMODL / IJN: [id number] /
[2018-03-21 06:18] LABS: Glucose,Whole Blood 124 mg/dL (75-99)
--- NOTE | 2018-03-21 06:32 | P.CONS ---
History of Present Illness - Chief Complaint Medical debility - History of Present Illness I had the op to see patient for inpatient rehab consultation with regard to medical debility. He was admitted to [facility] March 17 with history of frequent admissions for atrial flutter with rapid ventricular response requiring cardioversion, CHF, ejection fraction 20-25%, severe mitral regurg. Chest x-rays followed for improving CHF. Seen by Dr. Patten and Issa for CHF and hypoxic respiratory failure. Speech therapy assess swallowing within functional limits recommending. Diet and thin liquids. Previous functional history as elicited from patient: 73-year-old right greater than left-handed white male who is single lives at adult foster care. Describes independent with standing shower and gait without device. Admits to smoking 2 packs per day denies alcohol. Dr. Metz is regular doctor. Review of Systems Review of systems: ENT: Denies sneezes or discharge. Diminished hearing bilateral. Eyes: Denies discharge or photophobia. Cardiac: Denies chest pain or palpitation. Pulmonary: Denies cough or shortness of breath. Gastrointestinal: Denies nausea, emesis, constipation, diarrhea. Genitourinary: Denies discharge or frequency. Musculoskeletal: Denies muscle or bone aches. Neurologic: Denies motor or sensory change. Endocrine: Denies shakes or sweats. Oncology: Denies cancers. Dermatologic: Denies rash, itching, pruritus. ALLERGY/immunology: Denies sneezes, rashes. Past Medical History Past Medical History: Atrial Flutter, Heart Failure, COPD, CVA/TIA, Hearing Disorder / Deafness, Hypertension, Prostate Disorder History of Any Multi-Drug Resistant Organisms: None Reported Past Surgical History: Back Surgery Additional Past Surgical History / Comment(s): carotid endardectomy Past Anesthesia/Blood Transfusion Reactions: No Reported Reaction Past Psychological History: No Psychological Hx Reported Smoking Status: Former smoker Past Alcohol Use History: None Reported Past Drug Use History: None Reported - Past Family History Father Additional Family Medical History / Comment(s): father at the age of 70, sudden unclear etiology Mother Additional Family Medical History / Comment(s): mother of old age. Patient has no siblings patient has a power of deputy county attorney who does not live with him. Medications and Allergies Home Medications Medication Instructions Recorded Confirmed Type Aspirin 81 mg PO DAILY@0800 01/25/18 03/17/18 History ALPRAZolam [Xanax] 0.25 mg PO BID PRN #14 tab 02/24/18 03/17/18 Rx Acetaminophen Tab [Tylenol] 650 mg PO Q4H PRN 03/01/18 03/17/18 History Apixaban [Eliquis] 5 mg PO BID@08,199903/01/18 03/17/18 History Atorvastatin Calcium [Lipitor] 40 mg PO HS@199903/01/18 03/17/18 History Montelukast Sodium [Singulair] 10 mg PO HS@199903/01/18 03/17/18 History Nitroglycerin Sl Tabs [Nitrostat] 0.4 mg SUBLINGUAL Q5M PRN 03/01/18 03/17/18 History Albuterol Nebulized (Conc) 2.5 mg INHALATION RT-QID PRN 03/07/18 03/17/18 History [Ventolin Nebulized (Conc)] Tamsulosin HCl [Flomax] 0.4 mg PO DAILY@0800 03/07/18 03/17/18 History Melatonin 6 mg PO HS #30 tablet 03/15/18 03/17/18 Rx Nicotine 14Mg/24Hr Patch [Habitrol] 1 patch TRANSDERM DAILY #30 patch 03/15/18 03/17/18 Rx Amiodarone [Cordarone] 200 mg PO BID 03/17/18 03/17/18 History Finasteride [Proscar] 5 mg PO DAILY@0800 03/17/18 03/17/18 History Furosemide [Lasix] 20 mg PO DAILY@0800 03/17/18 03/17/18 History Midodrine [ProAmatine] 10 mg PO QID@06,11,15,21 03/17/18 03/17/18 History Sennosides [Senokot] 8.6 mg PO BID@799,199903/17/18 03/17/18 History buPROPion XL [Wellbutrin XL] 150 mg PO DAILY@0800 03/17/18 03/17/18 History predniSONE See Taper PO DIRECTED 03/17/18 03/17/18 History Levothyroxine Sodium [Synthroid] 50 mcg PO DAILY 03/18/18 03/18/18 History Metoprolol Tartrate [Lopressor] 50 mg PO BID 03/18/18 03/18/18 History Allergies Allergy/AdvReac Type Severity Reaction Status Date / Time venom-honey bee Allergy Anaphylaxis Verified 03/17/18 17:31 Physical Exam Vitals: Vital Signs Temp Pulse Pulse Resp BP BP BP 03/21/18 00:20 97.8 F 106 H 17 92/66 03/21/18 00:15 106 H 17 03/20/18 21:45 03/20/18 20:20 98.0 F 89 17 82/52 03/20/18 15:37 71 18 03/20/18 15:35 97.6 F 71 18 92/61 03/20/18 13:27 86 03/20/18 13:19 83 03/20/18 12:00 97.4 F L 94 18 80/59 03/20/18 08:14 03/20/18 08:00 96 03/20/18 07:55 97.3 F L 96 18 104/75 Pulse Ox 03/21/18 00:20 97 03/21/18 00:15 03/20/18 21:45 95 03/20/18 20:20 96 03/20/18 15:37 03/20/18 15:35 98 03/20/18 13:27 03/20/18 13:19 03/20/18 12:00 97 03/20/18 08:14 97 03/20/18 08:00 03/20/18 07:55 100 Intake and Output 03/20/18 03/20/18 03/21/18 14:59 22:59 06:59 Intake Total 360 240 Output Total 600 Balance 360 -360 Intake: Oral 360 240 Output: Urine 600 Other: Voiding Method Urinal Urinal # Voids 3 Weight 82.5 kg Skin: Good color, texture, turgor. General: Medium build and comfortable appearance. Head: Normocephalic, atraumatic. Eyes: Symmetric. Pupils equal round. Ears: Symmetric. Hearing within normal limits. Mouth: Clear. Neck: Supple. Carotid without bruit. Cardiac: Regular rate and rhythm. Lungs: Clear anteriorly and posteriorly. Abdomen: Soft active nontender. Extremities: Normal tone. Neurological: Mental status: Alert, cooperative, pleasant. Cranial nerves: Symmetric facial tone and trapezius. Hearing diminished bilateral. Motor: Active movement all 4 limbs. Sensation: Intact throughout. DTRs: Symmetric and equal throughout. Mobility: Would require physical assistance for bed mobility. Results CBC & Chem 7: 03/20/18 05:36 03/20/18 05:36 Labs: Abnormal Lab Results - Last 24 Hours (Table) 03/20/18 03/20/18 03/20/18 Range/Units 05:36 05:36 11:27 WBC 16.5 H (3.8-10.6) k/uL Hgb 11.6 L (13.0-17.5) gm/dL Hct 37.5 L (39.0-53.0) % MCHC 30.8 L (31.0-37.0) g/dL RDW 17.8 H (11.5-15.5) % Neutrophils # 15.1 H (1.3-7.7) k/uL Lymphocytes # 0.5 L (1.0-4.8) k/uL Sodium 134 L (137-145) mmol/L Chloride 89 L (98-107) mmol/L Carbon Dioxide 34 H (22-30) mmol/L BUN 32 H (9-20) mg/dL Glucose 100 H (74-99) mg/dL POC Glucose (mg/dL) 131 H (75-99) mg/dL Calcium 8.2 L (8.4-10.2) mg/dL ALT 186 H (21-72) U/L Total Protein 5.2 L (6.3-8.2) g/dL Albumin 3.2 L (3.5-5.0) g/dL 03/20/18 03/20/18 03/21/18 Range/Units 16:14 21:08 06:14 WBC (3.8-10.6) k/uL Hgb (13.0-17.5) gm/dL Hct (39.0-53.0) % MCHC (31.0-37.0) g/dL RDW (11.5-15.5) % Neutrophils # (1.3-7.7) k/uL Lymphocytes # (1.0-4.8) k/uL Sodium (137-145) mmol/L Chloride (98-107) mmol/L Carbon Dioxide (22-30) mmol/L BUN (9-20) mg/dL Glucose (74-99) mg/dL POC Glucose (mg/dL) 128 H 161 H 124 H (75-99) mg/dL Calcium (8.4-10.2) mg/dL ALT (21-72) U/L Total Protein (6.3-8.2) g/dL Albumin (3.5-5.0) g/dL Chest x-ray: report reviewed (Chest x-rays followed for COPD, cardiomegaly, improving CHF.) Assessment and Plan (1) Altered mental status Current Visit: No Status: Acute Code(s): R41.82 - ALTERED MENTAL STATUS, UNSPECIFIED SNOMED Code(s): 754826503 Plan: Depression: 1. Medical debility. 2. Mental status change. 3. Acute hypoxic respiratory failure. 4. Atrial flutter with RVR requiring cardioversion 5. CHF. 6. Cardiomyopathy including ejection fraction 20-25% and severe mitral regurg. 7. History of herniated lumbar disc. 8. Hypertension. 9. Deafness. plan: At this time speech ongoing for swallow. I have added physical and occupational therapy at this time. Note patient lives in [facility].
[2018-03-21] MEDS: INSULIN ASPART 100 UNIT/ML 1 ML 10 ML VIAL SQ SCH ×2 (06:53→12:25)
[2018-03-21 06:56] LABS: Anisocytosis Slight; Basophils % (A) 0 %; Eosinophils % (A) 0 %; HCT 37.8 % (39.0-53.0); HGB 11.4 gm/dL (13.0-17.5); Hypochromasia Marked; Lymphocytes # (A) 0.3 k/uL (1.0-4.8); Lymphocytes % (A) 2 %; MCH 25.4 pg (25.0-35.0); MCHC 30.2 g/dL (31.0-37.0); MCV 84.1 fL (80.0-100.0); Mean Platelet Volume 7.8; Monocytes # (A) 0.5 k/uL (0-1.0); Monocytes % (A) 3 %; Neutrophils # (A) 13.7 k/uL (1.3-7.7); Neutrophils % (A) 94 %; Platelet Count 239 k/uL (150-450); Poikilocytosis Slight; RDW 17.7 % (11.5-15.5); WBC 14.6 k/uL (3.8-10.6)
[2018-03-21] MEDS: MIDODRINE 5 MG TAB PO SCH ×2 (06:57→12:22)
[2018-03-21 07:08] LABS: Calcium 8.2 mg/dL (8.4-10.2); Potassium 3.4 mmol/L (3.5-5.1); Total Bilirubin 0.6 mg/dL (0.2-1.3); Total Protein 5.3 g/dL (6.3-8.2)
[2018-03-21] MEDS ORDERED: POTASSIUM CHLORIDE ER 20 MEQ TAB.ER PO STA (08:35)
[2018-03-21] MEDS: NICOTINE 14MG/24HR PATCH TRANSDERM SCH (08:52)
[2018-03-21] MEDS: FINASTERIDE 5 MG TAB PO SCH (08:53)
[2018-03-21] MEDS: METOPROLOL TARTRATE 50 MG TAB PO SCH (08:53)
[2018-03-21] MEDS: AMIODARONE 200 MG TAB PO SCH (08:53)
[2018-03-21] MEDS: SPIRONOLACTONE 25 MG TAB PO SCH (08:53)
[2018-03-21] MEDS: buPROPion XL 150 MG TAB.ER.24H PO SCH (08:53)
[2018-03-21] MEDS: methylPREDNISolone SOD SUCCI 40 MG/ML 1 ML VIAL IV SCH (08:54)
[2018-03-21] MEDS: APIXABAN 5 MG TAB PO SCH (08:54)
[2018-03-21] MEDS: LEVOTHYROXINE 50 MCG TAB PO SCH (08:55)
[2018-03-21] MEDS: FUROSEMIDE 40 MG TAB PO SCH (08:56)
[2018-03-21] MEDS ORDERED: LOSARTAN 25 MG TAB PO SCH (09:00)
[2018-03-21] MEDS: TAMSULOSIN 0.4 MG CAP.ER.24H PO SCH (09:07)
[2018-03-21] MEDS: SENNOSIDES 8.6 MG TAB PO SCH (09:07)
[2018-03-21] MEDS: FAMOTIDINE 20 MG TAB PO SCH (09:07)
[2018-03-21] MEDS: IPRATROPIUM-ALBUTEROL 3 ML NEB INHALATION SCH ×2 (09:18→13:15)
[2018-03-21] MEDS: BUDESONIDE 1 MG/2 ML NEBU INHALATION SCH (09:18)
--- NOTE | 2018-03-21 10:10 | P.PN ---
<Tata Kelly E - Last Filed: 03/21/18 10:03> Subjective Progress Note Date: 03/21/18 HPI: This is a 73-year-old male patient being seen examined and evaluated today for consultation. This patient is well known to our services. The patient was [facility] The patient was brought in via EMS for progressive worsening shortness of breath. His EKG did show that the patient was in atrial flutter with a rate of 90. His proBNP was 10,800. His chest x-ray did show CHF with pleural effusion and pulmonary congestion that is worse from previous exam. The patient was initially started on a Cardizem drip and has since been discontinued per cardiology. Patient continues in atrial fibrillation. Upon examination the patient is resting up in bed on 3 L of supplemental oxygen via nasal cannula. He does have a congested cough and states he has had some problems with swallowing his pills lately. We will put in a speech evaluation. He is afebrile denies any further complaints. Interval History: 03/19-03/20/[address] JACQUELYN Jauregui notes 03/21/18- patient is being seen examination evaluated today on rounds. He is resting up in bed is alert and awake he states his breathing is getting slightly better. Patient state he was congested yesterday and he was unable to bring up more clear/white sputum. He is resting up in bed on 2 L of supplemental oxygen via nasal cannula. He is being evaluated for possible inpatient rehab facility. All labs and reports have been reviewed. Objective - Vital Signs Vital signs: Vital Signs Temp 97.4 F L 03/21/18 08:35 Pulse 100 03/21/18 09:28 Resp 16 03/21/18 09:28 BP 107/78 03/21/18 08:35 Pulse Ox 100 03/21/18 09:18 Intake & Output 03/20/18 03/21/18 03/21/18 18:59 06:59 18:59 Intake Total 600 240 240 Output Total 600 Balance 600 -360 240 Weight 82.5 kg Intake: Oral 600 240 240 Output: Urine 600 Other: Voiding Method Urinal # Voids 3 - Exam GENERAL EXAM: Alert, hard of hearing, comfortable in no apparent distress. HEAD: Normocephalic. EYES: Normal reaction of pupils, equal size. NOSE: Clear with pink turbinates. THROAT: No erythema or exudates. NECK: No masses, no JVD. CHEST: No chest wall deformity. LUNGS: Lungs noted to be improving. Continues to be diminished at the bases. CVS: S1 and S2 normal with no audible mumurs, irregular rhythm. ABDOMEN: No hepatosplenomegaly, normal bowel sounds, no guarding or rigidity. EXTREMITIES: +2 edema noted, pedal pulses palpable. CENTRAL NERVOUS SYSTEM: No focal deficits, tone is normal in all 4 extremities. - Labs CBC & Chem 7: 03/21/18 06:22 03/21/18 06:22 Labs: Abnormal Lab Results - Last 24 Hours (Table) 03/20/18 03/20/18 03/20/18 Range/Units 11:27 16:14 21:08 WBC (3.8-10.6) k/uL Hgb (13.0-17.5) gm/dL Hct (39.0-53.0) % MCHC (31.0-37.0) g/dL RDW (11.5-15.5) % Neutrophils # (1.3-7.7) k/uL Lymphocytes # (1.0-4.8) k/uL Sodium (137-145) mmol/L Potassium (3.5-5.1) mmol/L Chloride (98-107) mmol/L Carbon Dioxide (22-30) mmol/L BUN (9-20) mg/dL Glucose (74-99) mg/dL POC Glucose (mg/dL) 131 H 128 H 161 H (75-99) mg/dL Calcium (8.4-10.2) mg/dL ALT (21-72) U/L Total Protein (6.3-8.2) g/dL Albumin (3.5-5.0) g/dL 03/21/18 03/21/18 03/21/18 Range/Units 06:14 06:22 06:22 WBC 14.6 H (3.8-10.6) k/uL Hgb 11.4 L (13.0-17.5) gm/dL Hct 37.8 L (39.0-53.0) % MCHC 30.2 L (31.0-37.0) g/dL RDW 17.7 H (11.5-15.5) % Neutrophils # 13.7 H (1.3-7.7) k/uL Lymphocytes # 0.3 L (1.0-4.8) k/uL Sodium 136 L (137-145) mmol/L Potassium 3.4 L (3.5-5.1) mmol/L Chloride 85 L (98-107) mmol/L Carbon Dioxide 41 H* (22-30) mmol/L BUN 39 H (9-20) mg/dL Glucose 111 H (74-99) mg/dL POC Glucose (mg/dL) 124 H (75-99) mg/dL Calcium 8.2 L (8.4-10.2) mg/dL ALT 165 H (21-72) U/L Total Protein 5.3 L (6.3-8.2) g/dL Albumin 3.0 L (3.5-5.0) g/dL Assessment and Plan Assessment: Assessment Acute hypoxic respiratory failure requiring supplemental oxygen Bilateral pleural effusions Acute exacerbation of chronic systolic heart failure Acute exacerbation of COPD Chronic persistent atrial fibrillation Orthostatic hypotension History of CAD History of TIA/stroke History of hypertension Plan Medications have been reviewed and will be continued as ordered. Steroid taper. Continue gentle diuresis. Patient would benefit from an outpatient sleep study. Monitor and replace electrolytes per protocol. Continue with pulmonary hygiene, coughing and deep breathing exercises, and supportive care. Supplemental oxygen to maintain oxygen saturations of 92% or better. Continue nebulizer treatments. GI and DVT prophylaxis. Initiate and encourage incentive spirometer. Cardiology on consult and appreciate recommendations. Patient would benefit from an outpatient PSG due to his recurrent A. fib. PT/OT and physical medicine on consult. We will continue to monitor labs/results and adjust treatment as necessary. Further recommendations pending. I performed an examination of the patient and discussed their management with the nurse practitioner. I have reviewed the nurse practitioner's note and agree with the documented findings and plan of care. <Olimpia Parsons - Last Filed: 03/21/18 14:35> Objective - Vital Signs Vital signs: Vital Signs Temp 95.2 F L 03/21/18 11:30 Pulse 84 03/21/18 11:30 Resp 20 03/21/18 11:30 BP 90/58 03/21/18 11:30 Pulse Ox 96 03/21/18 11:30 Intake & Output 03/20/18 03/21/18 03/21/18 18:59 06:59 18:59 Intake Total 600 240 420 Output Total 600 300 Balance 600 -360 120 Weight 82.5 kg Intake: Oral 600 240 420 Output: Urine 600 300 Other: Voiding Method Urinal Urinal # Voids 3 - Labs CBC & Chem 7: 03/21/18 06:22 03/21/18 06:22 Labs: Abnormal Lab Results - Last 24 Hours (Table) 03/20/18 03/20/18 03/21/18 Range/Units 16:14 21:08 06:14 WBC (3.8-10.6) k/uL Hgb (13.0-17.5) gm/dL Hct (39.0-53.0) % MCHC (31.0-37.0) g/dL RDW (11.5-15.5) % Neutrophils # (1.3-7.7) k/uL Lymphocytes # (1.0-4.8) k/uL Sodium (137-145) mmol/L Potassium (3.5-5.1) mmol/L Chloride (98-107) mmol/L Carbon Dioxide (22-30) mmol/L BUN (9-20) mg/dL Glucose (74-99) mg/dL POC Glucose (mg/dL) 128 H 161 H 124 H (75-99) mg/dL Calcium (8.4-10.2) mg/dL ALT (21-72) U/L Total Protein (6.3-8.2) g/dL Albumin (3.5-5.0) g/dL 03/21/18 03/21/18 03/21/18 Range/Units 06:22 06:22 11:30 WBC 14.6 H (3.8-10.6) k/uL Hgb 11.4 L (13.0-17.5) gm/dL Hct 37.8 L (39.0-53.0) % MCHC 30.2 L (31.0-37.0) g/dL RDW 17.7 H (11.5-15.5) % Neutrophils # 13.7 H (1.3-7.7) k/uL Lymphocytes # 0.3 L (1.0-4.8) k/uL Sodium 136 L (137-145) mmol/L Potassium 3.4 L (3.5-5.1) mmol/L Chloride 85 L (98-107) mmol/L Carbon Dioxide 41 H* (22-30) mmol/L BUN 39 H (9-20) mg/dL Glucose 111 H (74-99) mg/dL POC Glucose (mg/dL) 141 H (75-99) mg/dL Calcium 8.2 L (8.4-10.2) mg/dL ALT 165 H (21-72) U/L Total Protein 5.3 L (6.3-8.2) g/dL Albumin 3.0 L (3.5-5.0) g/dL Assessment and Plan Assessment: Taper solumedrol, decrease Pulmicort to 0.5 mg BID, PT and OT. No evidence of aspiration per EDUCATION ASSISTANT. Improving clinically. Outpatient PSG. ~Olimpia Parsons DO
[2018-03-21] MEDS ORDERED: guaiFENesin 600 MG TABLET.ER PO SCH (10:15)
[2018-03-21 11:33] LABS: Glucose,Whole Blood 141 mg/dL (75-99)
[2018-03-21 11:52] VITALS: RESP 20
--- NOTE | 2018-03-21 15:06 | P.PN ---
Subjective Progress Note Date: 03/21/18 This is a 73-year-old gentleman who was just discharged from the hospital a day ago returning with shortness of breath. He follows with Dr. Nicky Rogers in the office, known history of hypertension, atrial fibrillation with prior attempted cardioversion, on Eliquis for anticoagulation, prior CVA, COPD, nicotine use. Patient was just discharged from the hospital after being admitted with atrial fibrillation with a rapid ventricular response, went home and states he was quite short of breath for this reason came back for subsequent admission. Chest x-ray on admission showed congestive heart failure with pleural effusions, pulmonary congestion worse than prior exam. EKG shows atrial fibrillation with a moderately rapid ventricular response.blood pressure on admission here 112/50 with a heart rate in the 90s, 99% on 2 L of oxygen. Blood pressure this morning is 78/50 with a heart rate in the 60s, 93% on 2 L of oxygen. White blood cell count 4.2, hemoglobin 11.5, platelet count 205. Sodium 136, potassium 3.4, BUN 22, creatinine 0.8. AST 113, ALT 278, BNP level 10,800., troponin 0.013, 0.012, 0.015. An echocardiogram with Doppler study was performed earlier this month on this most recent admission, revealed an ejection fraction of 20-25%, mild to moderate MR. 03/21/2018 Patient was seen and examined this morning, feeling well, potassium 3.4, BUN 39 , creatinine 1.1. At pressure 90/50 with a heart rate in the 80s, temperature 90.5 0.296% on 2 L of oxygen. Objective - Vital Signs Vital signs: Vital Signs Temp 95.2 F L 03/21/18 11:30 Pulse 84 03/21/18 11:30 Resp 20 03/21/18 11:30 BP 90/58 03/21/18 11:30 Pulse Ox 96 03/21/18 11:30 Intake & Output 03/20/18 03/21/18 03/21/18 18:59 06:59 18:59 Intake Total 600 240 420 Output Total 600 300 Balance 600 -360 120 Weight 82.5 kg Intake: Oral 600 240 420 Output: Urine 600 300 Other: Voiding Method Urinal Urinal # Voids 3 - Exam PHYSICAL EXAMINATION: HEENT: Head is atraumatic, normocephalic. Pupils equal, round. Neck is supple. There is no elevated jugular venous pressure. HEART EXAMINATION: Heart S1 and S2 irregularly irregular a systolic murmur is heard CHEST EXAMINATION: On's reveal scattered coarse rhonchi throughout. ABDOMEN: Soft, nontender. Bowel sounds are heard. No organomegaly noted. EXTREMITIES: 2+ peripheral pulses with no evidence of peripheral edema and no calf tenderness noted. NEUROLOGIC patient is awake, alert and oriented -3. . - Labs CBC & Chem 7: 03/21/18 06:22 03/21/18 06:22 Labs: Abnormal Lab Results - Last 24 Hours (Table) 03/20/18 03/20/18 03/21/18 Range/Units 16:14 21:08 06:14 WBC (3.8-10.6) k/uL Hgb (13.0-17.5) gm/dL Hct (39.0-53.0) % MCHC (31.0-37.0) g/dL RDW (11.5-15.5) % Neutrophils # (1.3-7.7) k/uL Lymphocytes # (1.0-4.8) k/uL Sodium (137-145) mmol/L Potassium (3.5-5.1) mmol/L Chloride (98-107) mmol/L Carbon Dioxide (22-30) mmol/L BUN (9-20) mg/dL Glucose (74-99) mg/dL POC Glucose (mg/dL) 128 H 161 H 124 H (75-99) mg/dL Calcium (8.4-10.2) mg/dL ALT (21-72) U/L Total Protein (6.3-8.2) g/dL Albumin (3.5-5.0) g/dL 03/21/18 03/21/18 03/21/18 Range/Units 06:22 06:22 11:30 WBC 14.6 H (3.8-10.6) k/uL Hgb 11.4 L (13.0-17.5) gm/dL Hct 37.8 L (39.0-53.0) % MCHC 30.2 L (31.0-37.0) g/dL RDW 17.7 H (11.5-15.5) % Neutrophils # 13.7 H (1.3-7.7) k/uL Lymphocytes # 0.3 L (1.0-4.8) k/uL Sodium 136 L (137-145) mmol/L Potassium 3.4 L (3.5-5.1) mmol/L Chloride 85 L (98-107) mmol/L Carbon Dioxide 41 H* (22-30) mmol/L BUN 39 H (9-20) mg/dL Glucose 111 H (74-99) mg/dL POC Glucose (mg/dL) 141 H (75-99) mg/dL Calcium 8.2 L (8.4-10.2) mg/dL ALT 165 H (21-72) U/L Total Protein 5.3 L (6.3-8.2) g/dL Albumin 3.0 L (3.5-5.0) g/dL Assessment and Plan Plan: Assessment and plan #1 systolic congestive heart failure acute on chronic #2 chronic persistent atrial fibrillation status post prior cardioversion #3 prior CVA #4 nicotine dependence # 5 hypertension #6 hyperlipidemia #7 history of orthostatic hypotension, on midodrine Plan From cardiology's perspective, we will recommend to continue current medications. He may be able to be transferred to ECF once cleared by primary. DNP note has been reviewed, I agree with a documented findings and plan of care. Patient was seen and examined.
[2018-03-21 15:10] VITALS: BP 72/51; PULSE 74; TEMP 97.8
--- NOTE | 2018-03-21 15:53 | P.DS ---
Providers Date of admission: 03/17/18 18:51 Expected date of discharge: 03/21/18 Attending physician: Jonathon Abernathy Consults: 03/17/18 18:51 Consult Physician Routine Consulting Provider: Chidi Davies Consult Reason/Comments: afib Do you want consulting provider notified?: Yes 03/18/18 12:05 Consult Physician Routine Consulting Provider: Olimpia Parsons Consult Reason/Comments: copd Do you want consulting provider notified?: Yes 03/19/18 11:56 Consult Physician Routine Consulting Provider: Manjeet Coronel Consult Reason/Comments: medical debility Do you want consulting provider notified?: Yes Primary care physician: Alexei Metz [facility] Course: This is a 73 year old male patient of Dr. Metz with past medical history of hypertension, stroke with multiple admissions over the past several months with recurrent atrial flutter with RVR status post cardioversion, chronic systolic heart failure with EF of 20-25% and mild to moderate mitral regurgitation, orthostatic hypotension with autonomic dysfunction, urinary retention, hypertension, chronic kidney disease stage II, hypothyroidism, COPD. Patient was just discharged on March 15 to his adult foster half-way. Patient was brought in by EMS to [facility] emergency center for evaluation of shortness of breath. His heart rate was 98, blood pressure 112/56, pulse ox 99% on room air. EKG was atrial flatter at rate of 90. White count is normal, hemoglobin 11.5, potassium 3.4, creatinine 0.87, blood sugar 122, sodium 136 and chloride 95. AST is 113 and ALT 278. Troponin was 0.013. ProBNP 10,800. Chest x-ray shows congestive heart failure with pleural effusion. Pulmonary congestion is worse than last exam. Patient was started on Cardizem drip and then resumed on his home medications which include amiodarone and Lopressor midodrine and continues to have low blood pressure. There is a consult in place for cardiology regarding atrial fibrillation. 03/19: Patient is sitting up in bed he continues to have some congested cough, he denies any chest pain, he does not appear to be in acute shortness of breath , he has oxygen at 3 L nasal cannula, he continues to have some swelling in both lower extremities, and he has no abdominal pain, nausea, his hepatitis. He 100% of his meal. 03/20: Patient is feeling more wheezy today he continues to have a bit of hypotension, we will discontinue IV Lasix, we will continue the patient on Pulmicort 1 mg nebulization twice every day, monitor the patient very closely. 03/21: White count is improved to 14.6. CO2 is 41, potassium will be replaced. Patient is currently on Lasix 40 mg orally twice daily but did receive an IV Lasix 80 mg yesterday afternoon. Solu-Medrol is a 40 every 8. Blood pressure 75/49. Heart rate is currently in the 80s but in the low 100s during the night. Cardiology will plan to discuss case with Dr. Sneed to determine whether patient is a candidate for Tikosyn and possibly consider for ablation. However, guardian is interested in hospice care which seems very appropriate for patient's current condition. [facility] will be contacted and patient will be made GIP. Patient did have episode today where he was in the bathroom and became limp and sluggish. Discharge diagnoses: 1. Acute respiratory distress secondary to a combination of acute on chronic systolic heart failure with known EF of 20-25% and acute exacerbation of COPD. 2. Chronic persistent atrial fibrillation with previous cardioversion on 01/[address] Sneed planned to repeat cardioversion but patient refused. 3. Orthostatic hypotention with autonomic dysfunction 4. History of hypertension, currently with hypotension. 5. Recurrent depression 6. Urinary retention with BPH. 7. History of TIA/stroke 8. 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 9. Mild protein calorie malnutrition 10. CKD stage II 11. Transaminitis 12. Hypothyroidism 13. Coronary artery calcifications/CAD Discharge plan: [facility] as GIP Impression and plan of care have been directed as dictated by the signing physician. Etelvina Gallegos nurse practitioner acting as scribe for signing physician. Patient Condition at Discharge: Good Plan - Discharge Summary Discharge Rx Participant: No New Discharge Prescriptions: New guaiFENesin [Mucinex] 1,200 mg PO Q12HR tablet.er Spironolactone [Aldactone] 25 mg PO DAILY #30 tab Continue Aspirin 81 mg PO DAILY@0800 ALPRAZolam [Xanax] 0.25 mg PO BID PRN #14 tab PRN Reason: Anxiety Nitroglycerin Sl Tabs [Nitrostat] 0.4 mg SUBLINGUAL Q5M PRN PRN Reason: Chest Pain Acetaminophen Tab [Tylenol] 650 mg PO Q4H PRN PRN Reason: Pain Montelukast Sodium [Singulair] 10 mg PO HS@1999 Apixaban [Eliquis] 5 mg PO BID@0800,1999 Tamsulosin HCl [Flomax] 0.4 mg PO DAILY@0800 Albuterol Nebulized (Conc) [Ventolin Nebulized (Conc)] 2.5 mg INHALATION RT- QID PRN PRN Reason: Shortness Of Breath Melatonin 6 mg PO HS #30 tablet Nicotine 14Mg/24Hr Patch [Habitrol] 1 patch TRANSDERM DAILY #30 patch predniSONE See Taper PO DIRECTED Sennosides [Senokot] 8.6 mg PO BID@0800,1999 Midodrine [ProAmatine] 10 mg PO QID@06,11,15,21 buPROPion XL [Wellbutrin XL] 150 mg PO DAILY@0800 Furosemide [Lasix] 20 mg PO DAILY@0800 Amiodarone [Cordarone] 200 mg PO BID Levothyroxine Sodium [Synthroid] 50 mcg PO DAILY Changed Metoprolol Tartrate [Lopressor] 25 mg PO BID #0 Discontinued Atorvastatin Calcium [Lipitor] 40 mg PO HS@1999 Finasteride [Proscar] 5 mg PO DAILY@0800 Discharge Medication List Aspirin 81 mg PO DAILY@0800 01/25/18 [History] ALPRAZolam [Xanax] 0.25 mg PO BID PRN #14 tab 02/24/18 [Rx] Acetaminophen Tab [Tylenol] 650 mg PO Q4H PRN 03/01/18 [History] Apixaban [Eliquis] 5 mg PO BID@0800,199903/01/18 [History] Montelukast Sodium [Singulair] 10 mg PO HS@199903/01/18 [History] Nitroglycerin Sl Tabs [Nitrostat] 0.4 mg SUBLINGUAL Q5M PRN 03/01/18 [History] Albuterol Nebulized (Conc) [Ventolin Nebulized (Conc)] 2.5 mg INHALATION RT-QID PRN 03/07/18 [History] Tamsulosin HCl [Flomax] 0.4 mg PO DAILY@0800 03/07/18 [History] Melatonin 6 mg PO HS #30 tablet 03/15/18 [Rx] Nicotine 14Mg/24Hr Patch [Habitrol] 1 patch TRANSDERM DAILY #30 patch 03/15/18 [ Rx] Amiodarone [Cordarone] 200 mg PO BID 03/17/18 [History] Furosemide [Lasix] 20 mg PO DAILY@0800 03/17/18 [History] Midodrine [ProAmatine] 10 mg PO QID@06,11,15,21 03/17/18 [History] Sennosides [Senokot] 8.6 mg PO BID@0800,199903/17/18 [History] buPROPion XL [Wellbutrin XL] 150 mg PO DAILY@0800 03/17/18 [History] predniSONE See Taper PO DIRECTED 03/17/18 [History] Levothyroxine Sodium [Synthroid] 50 mcg PO DAILY 03/18/18 [History] Metoprolol Tartrate [Lopressor] 25 mg PO BID #0 03/21/18 [Rx] Spironolactone [Aldactone] 25 mg PO DAILY #30 tab 03/21/18 [Rx] guaiFENesin [Mucinex] 1,200 mg PO Q12HR tablet.er 03/21/18 [Rx] Follow up Appointment(s)/Referral(s): Olimpia Parsons DO [Doctor of Osteopathic Medicine] - 1 Week [facility], [NON-STAFF] - Alexei Metz MD [Primary Care Provider] - 1-2 days Activity/Diet/Wound Care/Special Instructions: Hold BP meds if SBP < 100. Discharge Disposition: DC/TRNS IP HOSP W/PLND IP READ
[2018-03-21] MEDS ORDERED: BUDESONIDE 0.5 MG/2 ML NEBU INHALATION SCH (20:00)
[2018-03-21] MEDS ORDERED: methylPREDNISolone SOD SUCCI 40 MG/ML 1 ML VIAL IV SCH (21:00)
== END 2018-03-21 15:09 | disposition hospice, home (50) | DRG 291 ==
LOC: EC 16:51 → 6SEL 18:51
PROVIDERS: ADMIT Internal Medicine; ATTEND Internal Medicine
DX: I13.0 Hypertensive heart and chronic kidney disease with heart failure and stage 1 through stage 4 chronic kidney disease, or unspecified chronic kidney disease (principal); I50.23 Acute on chronic systolic (congestive) heart failure; J96.01 Acute respiratory failure with hypoxia; E44.1 Mild protein-calorie malnutrition; F33.9 Major depressive disorder, recurrent, unspecified; I48.92 Unspecified atrial flutter; J44.1 Chronic obstructive pulmonary disease with (acute) exacerbation; E03.9 Hypothyroidism, unspecified; E78.5 Hyperlipidemia, unspecified; F17.210 Nicotine dependence, cigarettes, uncomplicated; H91.90 Unspecified hearing loss, unspecified ear; I25.10 Atherosclerotic heart disease of native coronary artery without angina pectoris; I34.0 Nonrheumatic mitral (valve) insufficiency; I48.2 Chronic atrial fibrillation; I42.9 Cardiomyopathy, unspecified; I77.1 Stricture of artery; N18.2 Chronic kidney disease, stage 2 (mild); N40.1 Benign prostatic hyperplasia with lower urinary tract symptoms; R33.8 Other retention of urine; R74.0 Nonspecific elevation of levels of transaminase and lactic acid dehydrogenase [LDH]; R13.10 Dysphagia, unspecified; G90.9 Disorder of the autonomic nervous system, unspecified; I95.1 Orthostatic hypotension; Z51.5 Encounter for palliative care; Z79.01 Long term (current) use of anticoagulants; Z79.82 Long term (current) use of aspirin; Z79.899 Other long term (current) drug therapy; Z86.73 Personal history of transient ischemic attack (TIA), and cerebral infarction without residual deficits; Z91.030 Bee allergy status
CPT/HCPCS: 36415; 71046; 80048; 80053; 82550; 82553; 83036; 83735; 83880; 84484; 85025; 85610; 85730; 93005; 94640; 94760; 96374; 99285

== ENCOUNTER 2018-03-21 15:12 | Inpatient (IN) | payer MEDICAID ==
[2018-03-21] MEDS ORDERED: ONDANSETRON 4 MG/2 ML VIAL IVP PRN (15:15)
[2018-03-21] MEDS ORDERED: ACETAMINOPHEN SUPPOSITORY 650 MG SUPP RECTAL PRN (15:15)
[2018-03-21] MEDS ORDERED: LORazepam 0.5 MG TAB PO PRN (15:15)
[2018-03-21] MEDS ORDERED: SCOPOLAMINE 1.5MG/72HR PATCH TRANSDERM PRN (15:15)
[2018-03-21] MEDS ORDERED: MORPHINE ORAL SOLN 10 MG/5 ML CUP PO PRN (15:23)
[2018-03-21] MEDS ORDERED: BISACODYL 10 MG SUPP RECTAL PRN (15:24)
[2018-03-21 15:54] VITALS: BP 72/51; TEMP 97.8
[2018-03-21 17:57] VITALS: BMI 27.6
[2018-03-21] MEDS: MIDODRINE 5 MG TAB PO SCH (18:02)
[2018-03-21] MEDS: IPRATROPIUM-ALBUTEROL 3 ML NEB INHALATION SCH ×2 (18:31→20:05)
[2018-03-21] MEDS ORDERED: MONTELUKAST 10 MG TAB PO SCH (21:00)
[2018-03-21] MEDS ORDERED: MELATONIN 3 MG TABLET PO SCH (21:00)
[2018-03-21] MEDS: METOPROLOL TARTRATE 25 MG TAB PO SCH (22:01)
[2018-03-21] MEDS: AMIODARONE 200 MG TAB PO SCH (22:01)
[2018-03-21] MEDS: SENNOSIDES 8.6 MG TAB PO SCH (22:02)
[2018-03-21] MEDS: guaiFENesin 600 MG TABLET.ER PO SCH (22:02)
[2018-03-21 22:29] VITALS: PULSE 68
[2018-03-22] MEDS: IPRATROPIUM-ALBUTEROL 3 ML NEB INHALATION SCH ×2 (02:59→09:25)
[2018-03-22] MEDS ORDERED: LEVOTHYROXINE 50 MCG TAB PO SCH (06:30)
[2018-03-22] MEDS ORDERED: TAMSULOSIN 0.4 MG CAP.ER.24H PO SCH (08:30)
[2018-03-22] MEDS ORDERED: NICOTINE 14MG/24HR PATCH TRANSDERM SCH (09:00)
[2018-03-22] MEDS ORDERED: SPIRONOLACTONE 25 MG TAB PO SCH (09:00)
[2018-03-22] MEDS ORDERED: buPROPion XL 150 MG TAB.ER.24H PO SCH (09:00)
[2018-03-22] MEDS: AMIODARONE 200 MG TAB PO SCH (09:05)
[2018-03-22] MEDS: MIDODRINE 5 MG TAB PO SCH ×2 (09:05→14:16)
[2018-03-22] MEDS: FUROSEMIDE 20 MG TAB PO SCH ×2 (09:05→09:07)
[2018-03-22] MEDS: guaiFENesin 600 MG TABLET.ER PO SCH (09:06)
[2018-03-22] MEDS: METOPROLOL TARTRATE 25 MG TAB PO SCH (09:06)
[2018-03-22] MEDS: SENNOSIDES 8.6 MG TAB PO SCH (09:07)
[2018-03-22 09:24] VITALS: RESP 24
--- NOTE | 2018-03-22 12:33 | P.HPIM ---
History of Present Illness H&P Date: 03/22/18 HISTORY AND PHYSICAL AND DISCHARGE SUMMARY: This is a 73 year old male patient of Dr. Metz with past medical history of hypertension, stroke with multiple admissions over the past several months with recurrent atrial flutter with RVR status post cardioversion, chronic systolic heart failure with EF of 20-25% and mild to moderate mitral regurgitation, orthostatic hypotension with autonomic dysfunction, urinary retention, hypertension, chronic kidney disease stage II, hypothyroidism, COPD. Patient has had multiple hospitalizations for shortness of breath with acute exacerbation of COPD and acute exacerbation of systolic heart failure along with significant hypotension despite multiple changes in medications. Patient' s guardian has decided that hospice would be most appropriate and would avoid readmissions which causes the patient much stress. Patient has been made GIP under hospice care and medications have been streamlined. Plan is for patient to be discharged back to [facility] today with hospice in place. Discharge Medication List Acetaminophen Tab [Tylenol] 650 mg PO Q4H PRN 03/01/18 [History] Montelukast Sodium [Singulair] 10 mg PO HS@199903/01/18 [History] Tamsulosin HCl [Flomax] 0.4 mg PO DAILY@0800 03/07/18 [History] Melatonin 6 mg PO HS #30 tablet 03/15/18 [Rx] Nicotine 14Mg/24Hr Patch [Habitrol] 1 patch TRANSDERM DAILY #30 patch 03/15/18 [ Rx] Amiodarone [Cordarone] 200 mg PO BID 03/17/18 [History] Furosemide [Lasix] 20 mg PO DAILY@0800 03/17/18 [History] Midodrine [ProAmatine] 10 mg PO QID@06,11,15,21 03/17/18 [History] Sennosides [Senokot] 8.6 mg PO BID@0800,199903/17/18 [History] buPROPion XL [Wellbutrin XL] 150 mg PO DAILY@0800 03/17/18 [History] predniSONE See Taper PO DIRECTED 03/17/18 [History] Levothyroxine Sodium [Synthroid] 50 mcg PO DAILY 03/18/18 [History] Metoprolol Tartrate [Lopressor] 25 mg PO BID #0 03/21/18 [Rx] guaiFENesin [Mucinex] 1,200 mg PO Q12HR tablet.er 03/21/18 [Rx] LORazepam ORAL CONC [Ativan Intensol] 1 mg PO Q4HR PRN #30 ml 03/22/18 [Rx] MORPHINE ORAL ELÍAS CONC 20mg/mL [Roxanol Oral Soln Conc 20MG/ML] 5 mg PO Q4H PRN #30 ml 03/22/18 [Rx] Review of Systems All systems: negative Constitutional: Reports weakness, Denies chills, Denies fever Eyes: denies blurred vision, denies pain Ears, nose, mouth and throat: Denies headache, Denies sore throat Cardiovascular: Denies chest pain, Denies shortness of breath Respiratory: Denies cough Gastrointestinal: Denies abdominal pain, Denies diarrhea, Denies nausea, Denies vomiting Musculoskeletal: Denies myalgias Integumentary: Denies pruritus, Denies rash Neurological: Denies numbness, Denies weakness Psychiatric: Denies anxiety, Denies depression Endocrine: Denies fatigue, Denies weight change Past Medical History Past Medical History: Atrial Flutter, Heart Failure, COPD, CVA/TIA, Hearing Disorder / Deafness, Hypertension, Prostate Disorder History of Any Multi-Drug Resistant Organisms: None Reported Past Surgical History: Back Surgery Additional Past Surgical History / Comment(s): carotid endardectomy Past Anesthesia/Blood Transfusion Reactions: No Reported Reaction Smoking Status: Former smoker - Past Family History Father Additional Family Medical History / Comment(s): father at the age of 70, sudden unclear etiology Mother Additional Family Medical History / Comment(s): mother of old age. Patient has no siblings patient has a power of securities attorney who does not live with him. Medications and Allergies Home Medications Medication Instructions Recorded Confirmed Type Acetaminophen Tab [Tylenol] 650 mg PO Q4H PRN 03/01/18 03/21/18 History Montelukast Sodium [Singulair] 10 mg PO HS@199903/01/18 03/21/18 History Tamsulosin HCl [Flomax] 0.4 mg PO DAILY@0800 03/07/18 03/21/18 History Melatonin 6 mg PO HS #30 tablet 03/15/18 03/21/18 Rx Nicotine 14Mg/24Hr Patch [Habitrol] 1 patch TRANSDERM DAILY #30 patch 03/15/18 03/21/18 Rx Amiodarone [Cordarone] 200 mg PO BID 03/17/18 03/21/18 History Furosemide [Lasix] 20 mg PO DAILY@0800 03/17/18 03/21/18 History Midodrine [ProAmatine] 10 mg PO QID@06,11,15,21 03/17/18 03/21/18 History Sennosides [Senokot] 8.6 mg PO BID@0800,199903/17/18 03/21/18 History buPROPion XL [Wellbutrin XL] 150 mg PO DAILY@0800 03/17/18 03/21/18 History predniSONE See Taper PO DIRECTED 03/17/18 03/21/18 History Levothyroxine Sodium [Synthroid] 50 mcg PO DAILY 03/18/18 03/21/18 History Metoprolol Tartrate [Lopressor] 25 mg PO BID #0 03/21/18 03/21/18 Rx guaiFENesin [Mucinex] 1,200 mg PO Q12HR tablet.er 03/21/18 03/21/18 Rx LORazepam ORAL CONC [Ativan 1 mg PO Q4HR PRN #30 ml 03/22/18 Rx Intensol] MORPHINE ORAL ELÍAS CONC 20mg/mL 5 mg PO Q4H PRN #30 ml 03/22/18 Rx [Roxanol Oral Soln Conc 20MG/ML] Allergies Allergy/AdvReac Type Severity Reaction Status Date / Time venom-honey bee Allergy Anaphylaxis Verified 03/21/18 17:15 Physical Exam Vitals: Vital Signs Temp Pulse Resp BP Pulse Ox 03/22/18 09:17 24 03/21/18 20:30 68 22 93 L 03/21/18 15:52 97.8 F 74 20 72/51 98 03/21/18 15:30 20 Intake and Output 03/21/18 03/22/18 03/22/18 22:59 06:59 14:59 Intake Total 250 Balance 250 Intake: Oral 250 Other: Voiding Method Urinal Urinal Urinal # Voids 1 2 Weight 82.5 kg General appearance: cooperative, no acute distress, obese - EENT Eyes: anicteric sclerae, PERRLA, normal appearance ENT: hearing grossly normal - Neck Neck: no lymphadenopathy, normal ROM, no other, no rigidity, no stridor, no thyromegaly - Respiratory Respiratory: bilateral: Scattered coarse wheezing with rhonchi and decreased air movement, negative: diminished, dullnes - Cardiovascular Rhythm: irregular Heart sounds: normal: S1, S2 Abnormal Heart Sounds: systolic murmur, no diastolic murmur, no rub, no S3 Gallop, no S4 Gallop, no click, no other - Gastrointestinal General gastrointestinal: normal bowel sounds, soft - Integumentary Integumentary: no rash - Neurologic Neurologic: CNII-XII intact - Musculoskeletal Musculoskeletal: strength equal bilaterally - Psychiatric Psychiatric: A&O x's 3, appropriate affect Thrombosis Risk Factor Assmnt - DVT/VTE Prophylaxis DVT/VTE Prophylaxis: Mechanical Prophylaxis ordered Assessment and Plan Plan: 1. Acute respiratory distress secondary to a combination of acute on chronic systolic heart failure with known EF of 20-25% and acute exacerbation of COPD. 2. Chronic persistent atrial fibrillation with previous cardioversion on 01/[address] Sneed planned to repeat cardioversion but patient refused. 3. Orthostatic hypotension with autonomic dysfunction 4. History of hypertension, currently with hypotension. 5. Recurrent depression 6. Urinary retention with BPH. 7. History of TIA/stroke 8. 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 9. Mild protein calorie malnutrition 10. CKD stage II 11. Transaminitis 12. Hypothyroidism 13. Coronary artery calcifications/CAD Discharge plan: [facility] as GIP and transition to home ([facility] ) with hospice Impression and plan of care have been directed as dictated by the signing physician. Etelvina Gallegos nurse practitioner acting as scribe for signing physician.
== END 2018-03-22 14:15 | disposition hospice, home (50) | DRG 190 ==
LOC: 6SEL 15:12 → 5ONC 16:44
PROVIDERS: ADMIT Internal Medicine; ATTEND Internal Medicine
DX: J44.1 Chronic obstructive pulmonary disease with (acute) exacerbation (principal); I50.23 Acute on chronic systolic (congestive) heart failure; I13.0 Hypertensive heart and chronic kidney disease with heart failure and stage 1 through stage 4 chronic kidney disease, or unspecified chronic kidney disease; E44.1 Mild protein-calorie malnutrition; F33.9 Major depressive disorder, recurrent, unspecified; E03.9 Hypothyroidism, unspecified; G90.9 Disorder of the autonomic nervous system, unspecified; H91.90 Unspecified hearing loss, unspecified ear; I25.10 Atherosclerotic heart disease of native coronary artery without angina pectoris; I34.0 Nonrheumatic mitral (valve) insufficiency; I48.2 Chronic atrial fibrillation; I77.1 Stricture of artery; I95.1 Orthostatic hypotension; N18.2 Chronic kidney disease, stage 2 (mild); N40.1 Benign prostatic hyperplasia with lower urinary tract symptoms; R33.8 Other retention of urine; Z51.5 Encounter for palliative care; Z86.73 Personal history of transient ischemic attack (TIA), and cerebral infarction without residual deficits; Z87.891 Personal history of nicotine dependence; Z79.890 Hormone replacement therapy; Z79.891 Long term (current) use of opiate analgesic; Z79.899 Other long term (current) drug therapy; R74.0 Nonspecific elevation of levels of transaminase and lactic acid dehydrogenase [LDH]; R06.03 Acute respiratory distress